=== PATIENT | male | born 1940 | race Caucasian/White ===

== ENCOUNTER 2020-02-23 15:42 | Emergency (ER) | payer MEDICARE, SELFPAY ==
--- NOTE | ~2020-02-23 | XR_ITS ---
XR ankle RT min 3V DATE: 02/23/2020 16:02 INDICATION: Injury. Right ankle swelling. TECHNIQUE: 4 views COMPARISON: None FINDINGS: There is a trimalleolar fracture. There is one cortical width lateral displacement of the l ateral malleolus, approximately 1.4 mm lateral displacement of the medial malleolar fracture. The ankle mortise appears intact. Plantar and posterior calcaneal enthesopathy. IMPRESSION: Trimalleolar ankle fracture Reviewed, dictated and finalized at location A. IMPRESSION: Trimalleolar ankle fracture
[2020-02-23 15:44] VITALS: BP 144/79; PULSE 76; RESP 17; TEMP 36.1; O2SAT 98
--- NOTE | 2020-02-23 15:59 | ED.ABDPAIN ---
HPI - Abdominal Pain General Chief Complaint: Extremity Injury, Lower Stated Complaint: Fall, Ankle Pain Time Seen by Provider: 02/23/20 15:44 Source: patient Mode of arrival: ambulatory Limitations: no limitations History of Present Illness HPI narrative: Patient is a 79-year-old male who presents to emergency department for evaluation patient misstepped tripping injuring the right ankle and has since had moderate aching pain to the right ankle joint worse with weightbearing and activity injury occurred just prior to arrival patient does not wish for pain medication. Patient denies other injuries or complaints Related Data Home Medications Medication Instructions Recorded Confirmed aspirin 81 mg tablet,delayed 81 mg PO DAILY 07/04/19 release cetirizine 10 mg tablet 10 mg PO DAILY PRN tablet 07/04/19 hydrochlorothiazide 25 mg tablet 25 mg PO DAILY 07/04/19 Allergies Allergy/AdvReac Type Severity Reaction Status Date / Time Aminoglycosides Allergy Mild Unknown Verified 02/23/20 15:47 bacitracin Allergy Mild Unknown Verified 02/23/20 15:47 neomycin Allergy Mild Unknown Verified 02/23/20 15:47 cetirizine Allergy Unknown affects Verified 02/23/20 15:47 mood Sulfa (Sulfonamide Allergy Unknown Unknown Verified 02/23/20 15:47 Antibiotics) sulfamethizole Allergy Unknown Nausea Verified 02/23/20 15:47 POLYMYXINBSULF Allergy Mild Unknown Uncoded 11/06/19 10:23 RANITIDINE HCL Allergy Unknown Unknown Uncoded 11/06/19 10:23 Review of Systems Review of Systems: All systems reviewed & are unremarkable except as noted in HPI and below PMFSH Surgical History Surgical History Hx of cholecystectomy Social History Social History Smoking status: Former smoker Alcohol intake: current Gender identity (if verbalized by the patient): Male Exam Narrative: Exam Narrative: GENERAL: Well-appearing, well-nourished, and in no acute distress. HEAD: Normocephalic, atraumatic. EYES: PERRLA and EOMI. ENT: Nares clear, no rhinorrhea or epistaxis. Mucous membranes moist. EXTREMITIES: Tenderness of the right ankle joint no bruising. 1+ edema of the lower extremities SKIN: Warm, dry, no rash. NEURO: No focal deficits. Alert and oriented x3. Neurovascularly intact. Capillary refill less than 2 seconds PSYCH: Normal mood and affect. Procedures Orthopedic Splinting/Casting Injury #1: Splinting/Casting Date: 02/23/20 Splinting/Casting Time: 16:13 Side: right Lower Extremity Injury Location: ankle Lower Extremity Immobilizer: posterior splint and stirrup splint OCL: stirrup Pre-Procedure Neuro Vascular Exam: normal Post-Procedure Neuro Vascular Exam: normal Other Orthopedic Equipment: walker Course Course Emergency Course: Patient in the room splinted in the emergency department will be discharged with orthopedic follow-up Vital Signs Vital signs: Vital Signs Temperature 97 F L 02/23/20 15:44 Pulse Rate 76 02/23/20 15:44 Respiratory Rate 17 02/23/20 15:44 Blood Pressure 144/79 H 02/23/20 15:44 Pulse Oximetry 98 02/23/20 15:44 Temperature 97 F L 02/23/20 15:44 Pulse Rate 76 02/23/20 15:44 Respiratory Rate 17 02/23/20 15:44 Blood Pressure 144/79 H 02/23/20 15:44 Pulse Oximetry 98 02/23/20 15:44 MDM - Abdominal Pain MDM Narrative Medical decision making narrative: Patients injury or pain is consistent with musculoskeletal etiology. No signs of neurological or vascular compromise on exam. Compartments and tisues are soft without signs of compartment syndrome. Patient splinted in the emergency department will be given follow-up with orthopedic surgery Imaging Data Radiologist's impression: ITS Impressions Ankle X-Ray 02/23/20 16:04 IMPRESSION: Trimalleolar ankle fracture Discharge Plan Discharge Cli
== END 2020-02-23 17:21 | disposition home or self-care (01) ==
LOC: ANHED 16:46
PROVIDERS: Emergency Provider Family Medicine; PCP Family Medicine
DX: S82.852G Displaced trimalleolar fracture of left lower leg, subsequent encounter for closed fracture with delayed healing (principal); Z79.82 Long term (current) use of aspirin; Z87.891 Personal history of nicotine dependence; W18.40XA Slipping, tripping and stumbling without falling, unspecified, initial encounter
CPT/HCPCS: 29515; 73610; 99284

== ENCOUNTER 2020-03-01 01:08 | Outpatient (CLI) | payer MEDICARE, SELFPAY ==
[2020-03-01 18:02] LABS: SARS-CoV-2 RNA PCR Negative
== END 2020-03-01 01:09 | disposition home or self-care (01) ==
LOC: ANHCOVIDDT 01:09
PROVIDERS: PCP Family Medicine; Visit Provider Orthopaedic Surgery
DX: Z01.812 Encounter for preprocedural laboratory examination (principal); Z20.828 Contact with and (suspected) exposure to other viral communicable diseases
CPT/HCPCS: 87635; C9803; U0003

== ENCOUNTER 2020-03-03 07:25 | Outpatient (CLI) | payer MEDICARE, SELFPAY ==
--- NOTE | 2020-03-03 14:15 | ECG_ITS ---
Measurements Intervals [place] Rate: 76 P: 31 IN: 150 QRS: -25 QRSD: 97 T: 54 QT: 389 QTc: 440 Interpretive Statements SINUS RHYTHM SUPRAVENTRICULAR TRIGEMINY EARLY PRECORDIAL R/S TRANSITION BASELINE ARTIFACT- I, II, AVR ABNORMAL ECG Electronically Signed On 03-03-2020 14:41:56 CDT by Juan Antonio Escalante D.O.
[2020-03-03 15:12] LABS: Anion Gap 10 mmol/L (8-16); Blood Urea Nitrogen 19 mg/dL (9-20); Calcium 8.8 mg/dL (8.4-10.2); Carbon Dioxide 29 mmol/L (22-30); Chloride 91 mmol/L (98-107); Estimated Glomerular Filt Rate > 60; Glucose 142 mg/dL (75-110); Potassium 3.9 mmol/L (3.4-5.0); Sodium 130 mmol/L (137-145)
== END 2020-03-03 07:26 ==
LOC: ANHSURGERY 03-13 07:26
PROVIDERS: Anesthesiology; PCP Family Medicine; Visit Provider Orthopaedic Surgery
DX: Z01.818 Encounter for other preprocedural examination (principal); I10 Essential (primary) hypertension; E11.9 Type 2 diabetes mellitus without complications; R94.31 Abnormal electrocardiogram [ECG] [EKG]
CPT/HCPCS: 36415; 80048; 93005

== ENCOUNTER 2020-03-04 02:02 | Day surgery (SDC) | payer MEDICARE, SELFPAY ==
[2020-02-29 14:58] VITALS: BMI 23.8
[2020-03-04] VITALS (8 sets, daily range): BP systolic 127–153; BP diastolic 42–72; PULSE 43–85; RESP 13–20; TEMP 36.4–37.1; O2SAT 99–100
--- NOTE | ~2020-03-04 | XR_ITS ---
EXAMINATION: XR surgery orthopedic DATE: 03/04/2020 16:33 INDICATION: Trimalleolar right ankle fracture. TECHNIQUE: 4 intraoperative spot fluoroscopic views of right ankle were obtained. I was not present. Fluoroscopy exposure time was 473 seconds. COMPARISON: Right ankle radiographs 02/29/2020 FINDINGS: There is an oblique fracture of distal fibula with internal fixation with retrograde intram edullary maykel and screws. The distal fracture fragment demonstrates 5 mm lateral displacement. There i s a transverse fracture of medial malleolus with internal fixation with 3 lag screws. The distal frac ture fragment demonstrates near-anatomic alignment. There is a coronal fracture of posterior malleolu s with 2 mm step-off at the articular surface. IMPRESSION: 1. Trimalleolar ankle fracture status post open reduction internal fixation. Reviewed, dictated and finalized at location A.
[2020-03-04] MEDS: LACTATED RINGERS 1,000 ML 30 ML IV CONT (11:58)
[2020-03-04] MEDS: ACETAMINOPHEN 500 MG TABLET 1000 MG PO (11:59)
[2020-03-04] MEDS: CELECOXIB 200 MG CAPSULE PO (11:59)
--- NOTE | 2020-03-04 12:30 | WPDHPUPDATE1 ---
History and Physical Update Update Date/Time: 03/04/20 12:30 History and Physical has been reviewed, including an updated exam of the patient. There are NO changes in the patient's condition. Risks, benefits, and alternatives have been discussed and questions answered. Patient agrees to proceed with procedure.
[2020-03-04 12:34] LABS: Glucose Point of Care 124 (65-105)
[2020-03-04 12:34] LABS: Sodium 131 mmol/L (137-145)
--- NOTE | 2020-03-04 13:21 | WPDANESEPPF ---
Anes - Initial Pre Proc Eval Procedure: Operation Date: 03/04/20 13:30 Proposed Procedures p Open Reduction Internal Fixation Right Ankle - Haresh Gerard MD Date/Time: 03/04/20 13:21 Surgeon: Haresh Gerard MD Pre Op Diagnosis: right ankle trimalleolar fx Patient Data Age: 79 Gender: M Height: 6 ft 2 in Weight: 84 kg Allergies Allergy/AdvReac Type Severity Reaction Status Date / Time neomycin Allergy Mild Rash Verified 03/04/20 13:13 Sulfa (Sulfonamide Allergy Unknown Unknown Verified 03/04/20 13:13 Antibiotics) Home Medications Medication Instructions Recorded Confirmed Type diclofenac sodium 75 mg 75 mg PO BID #180 tablet 06/25/19 03/04/20 Rx tablet,delayed release aspirin 81 mg tablet,delayed 81 mg PO DAILY 07/04/19 03/04/20 History release cetirizine 10 mg tablet 10 mg PO DAILY tablet 07/04/19 03/03/20 History hydrochlorothiazide 25 mg tablet 25 mg PO QAM 07/04/19 03/03/20 History metformin 500 mg tablet 500 mg PO BID #180 tablet 07/09/19 03/03/20 Rx amlodipine-benazepril 1 cap PO QAM 02/29/20 03/03/20 History atorvastatin 10 mg PO HS 02/29/20 03/03/20 History multivitamin [Multiple Vitamins] 1 tablet PO DAILY 02/29/20 03/03/20 History niacin [Slo-Niacin] 500 mg PO HS 02/29/20 03/03/20 History omeprazole 20 mg PO QAM 02/29/20 03/03/20 History Laboratory Tests 03/04/20 03/04/20 11:57 12:18 Sodium 131 mmol/L L mmol/L (137-145) POC Capillary Glucose 124 mg/dl H mg/dl (65-105) Patient hx anesthesia problems: none Family hx anesthesia problems: none PMFSH Past Medical History Medical History (Updated 03/04/20 @ 13:21 by Vicente Ba MD) Essential (primary) hypertension Mixed hyperlipidemia Seasonal allergies Trimalleolar fracture Type 2 diabetes mellitus without complications Urinary frequency Vision abnormalities Surgical History Surgical History Hx of cholecystectomy Family History Family History Father Diabetes mellitus Hypertension Acute myocardial infarction Cerebrovascular accident Mother Family history of malignant neoplasm Social History Social History Smoking packs per day: 0.5 Smoking cigarettes per day: 10.0 Years smoked: 14 Smoking pack-years: 7.00 Smoking status: Former smoker Smoking end date: 06/20/74 Alcohol intake: current Alcohol use details: FEW DRINKS/YEAR Substance use: never Living arrangements: with family Gender identity (if verbalized by the patient): Male Spiritual care concerns: No Anes - Eval Final PreProcedure Day of Procedure 03/04/20 13:21 Patient weight: normal Heart: regular rate and rhythm Lungs: clear to auscultation Airway: Mallampati scale class II Neurological: alert and oriented Last oral intake: >/= 8 hours ASA classification: III Emergent: no Anesthetic plan: proceed Anesthesia type and monitoring: general LMA and standard monitoring Informed Consent: The patient's anesthetic plan and its attendant risks and benefits were discussed with the patient/family/POA. Questions were solicited and answers provided to the satisfaction of the patient/family/POA.
[2020-03-04] MEDS: ceFAZolin 2 GM/D5W 50 ML 2 GM/50 ML BAG IVPB (14:33)
--- NOTE | 2020-03-04 16:56 | PM.PROC ---
Procedure Note - Detailed Date of procedure: 03/04/20 Pre-op diagnosis: right ankle trimalleolar fx Post-op diagnosis: same Procedure performed: ORIF RIGHT ANKLE Description of procedure: THE PATIENT WAS TAKING TO THE OR. THE RIGHT LEG WAS PREPPED AND DRAPED FROM THE TOES TO THE KNEE. THE SKIN HAD SIGNIFICANT ECCHYMOSIS SO IT WAS DECIDED THAT A FIBULAR TAYLOR WOULD BE USED. AN INCISION WAS MADE AT THE DISTAL FIBULA REGION AND THE SOFT TISSUES WERE DISSECTED DOWN TO BONE. THE TIP OF THE FIBULA WAS VISUALIZED AND A GUIDE WIRE WAS PASSED FROM THE TIP TO THE SHAFT OF THE FIBULA BRIDGING THE FRACTURE FRAGMENTS AND VISUALIZED WITH FLUOROSCOPY. A REAMER WAS PASSED OVER THE GUIDE WIRE INTO THE SHAFT. A 3.2 FIBULAR TAYLOR WAS INSERTED BRIDGING THE FRACTURE FRAGMENTS. THE THE TAYLOR WAS LOCKED PROXIMAL WITH THE HELICAL BLADES THEN DISTALLY WITH 4 SCREWS THAT HAD ALL GOOD BITES. NEXT THE INCISION WAS MADE AT THE MEDIAL ANKLE OVER THE MEDIAL MALLEOLUS DOWN TO BONE. THE SAPHENOUS VEIN WAS PRESERVED. THE FRACTURE WAS IDENTIFIED. THERE WAS SIGNIFICANT COMMINUTION. THE FRACTURE WAS REDUCED AND SECURED IN ANATOMIC POSITION WITH 3 PARTIALLY THREADED CANCELLOUS SCREWS. THE SCREWS HAD GOOD PURCHASE.THE WOUNDS WERE WASHED AND XRAYS WERE TAKEN AND THE HARDWARE AND FRACTURE FRAGMENTS WERE IN GOOD POSITION. THE POSTERIOR MALLEOLUS APPEARED TO BE REDUCED. THE WOUNDS WERE WASHED AGAIN AND THE WOUNDS WERE CLOSED WITH 2-O VICRYL FOR THE SUBCUTANEOUS TISSUES, 3-0 PROLINE WAS USED TO APPROXIMATE THE LATERAL WOUND AND SAVI WERE USED TO APPROXIMATE THE MEDIAL WOUND. STERILE DRESSING WAS APPLIED AND KIRBY RIOS SPLINT WAS PLACED. THE PATIENT WAS EXTUBATED AND SENT TO THE RECOVERY ROOM. Anesthesia: GETA Surgeon: Haresh Gerard MD Estimated blood loss (mL): 5 Drains: No Complications: No immediate complications Condition: stable Disposition: PACU
[2020-03-04 17:01] LABS: Glucose Point of Care 144 (65-105)
--- NOTE | 2020-03-04 17:08 | SUR.PHASEI ---
Dr. Bartlett at bedside for block
--- NOTE | 2020-03-04 17:19 | WPDANESPNB ---
Anes - Peripheral Nerve Block Date/Time: 03/04/20 17:19 I have discussed with the patient/family/POA the placement of a peripheral nerve block for post-operative pain management, including associated risks, benefits, complications, and side effects. Alternative methods of post-operative analgesia were detailed. Questions were solicited and answers provided to the satisfaction of the patient/family/POA. Time-Out: A pre-procedural Time-Out was completed immediately before starting the procedure and confirmed: Patient Identification, Site, Procedure, Patient Position and the Availability of Requisite Equipment. Clinical Indications: Acute post-operative pain management requested by the operative surgeon. Nerve Block Insertion Note Anes-nerve block: posterior fossa sciatic (20cc) right Patient position: supine Skin prep: chlorhexidine Needle: 22 gauge, stimulating, insulated echogenic needle. Needle length: 80 mm Technique: ultrasound (in plane) Injectate: bupivacaine 0.5% with epi 5 mcg/ml (20cc) Observations: tolerated well Complications: none Procedure start time:: 1705 Procedure end time:: 171
== END 2020-03-04 18:30 | disposition home or self-care (01) ==
PROVIDERS: Anesthesiology; PCP Family Medicine; Visit Provider Orthopaedic Surgery
PROC: (CPT 27822; principal; 2020-03-04 13:30)
DX: S82.851A Displaced trimalleolar fracture of right lower leg, initial encounter for closed fracture (principal); X58.XXXA Exposure to other specified factors, initial encounter; R35.0 Frequency of micturition; I10 Essential (primary) hypertension; E11.9 Type 2 diabetes mellitus without complications; E78.5 Hyperlipidemia, unspecified
CPT/HCPCS: 27822; 36415; 84295; A9270; C1713; C1769; J0690; J1100; J2405; J2704; J3010; J7120

== ENCOUNTER 2020-04-01 10:49 | Outpatient (CLI) | payer MEDICARE, SELFPAY ==
[2020-04-01 19:01] LABS: SARS-CoV-2 RNA PCR Negative
== END 2020-04-01 10:50 | disposition home or self-care (01) ==
LOC: ANHCOVIDDT 04-29 10:49
PROVIDERS: PCP Family Medicine; Visit Provider Orthopaedic Surgery
DX: Z01.818 Encounter for other preprocedural examination (principal); Z20.828 Contact with and (suspected) exposure to other viral communicable diseases
CPT/HCPCS: 87635; C9803; U0003

== ENCOUNTER 2020-04-03 00:28 | Day surgery (SDC) | payer MEDICARE, SELFPAY ==
[2020-03-28 12:25] VITALS: BMI 24.4
[2020-04-03] VITALS (8 sets, daily range): BP systolic 122–151; BP diastolic 55–78; PULSE 66–72; RESP 12–14; TEMP 36.3–36.6; O2SAT 100
--- NOTE | ~2020-04-03 | XR_ITS ---
EXAMINATION: XR surgery orthopedic DATE: 04/03/2020 12:07 INDICATION: ORIF right ankle fracture TECHNIQUE: 3 fluoroscopic spot images of the right ankle were obtained during procedure performed by Dr. Cuellar. Radiologist was not present for the imaging or procedure. The amount of fluoroscopy time used during this procedure was 1.4 minutes. COMPARISON: Right ankle radiographs dated 03/26/2020 FINDINGS: Interval removal of the prior fixation instrumentation at the distal right tibia and fibula and place ment of new fixation instrumentation. This includes fixation of the posterior malar fracture with an anterior to posteriorly directed cannulated lag screw extending across the tibial plafond, medial to lateral plate and screw fixation of the medial malleolus fracture and lateral plate and screw fixatio n of the lateral malleolar fracture which includes 3 screws spanning the distal tibiofibular syndesmo sis. Alignment of the fixations appears near-anatomic. Normal alignment and joint space at the right ankle and subtalar joints. Expected small amount of postoperative gas in the soft tissues and tibiota lar joint space. IMPRESSION: 1. Near-anatomic alignment post revision of internal fixation of a trimalleolar fracture of the right ankle as detailed above. See procedure note for further detail. Reviewed, dictated and finalized at location B.
--- NOTE | 2020-04-03 07:17 | WPDHPUPDATE1 ---
History and Physical Update Update Date/Time: 04/03/20 07:17 History and Physical has been reviewed, including an updated exam of the patient. There are NO changes in the patient's condition. Covid test negative. Risks, benefits, and alternatives have been discussed and questions answered. Patient agrees to proceed with procedure.
[2020-04-03] MEDS: LACTATED RINGERS 1,000 ML 30 ML IV CONT ×2 (08:05→12:31)
[2020-04-03] MEDS: ACETAMINOPHEN 500 MG TABLET 1000 MG PO (08:10)
[2020-04-03] MEDS: KETOROLAC 15 MG/ML VIAL (*BKC) IV PUSH (08:14)
[2020-04-03 08:20] LABS: Glucose Point of Care 121 (65-105)
[2020-04-03 08:24] LABS: Sodium 132 mmol/L (137-145)
--- NOTE | 2020-04-03 08:35 | WPDANESEPPF ---
Anes - Initial Pre Proc Eval Procedure: Operation Date: 04/03/20 09:00 Proposed Procedures p Open Reduction Internal Fixation Right Ankle, - Johan Cuellar MD s Removal Hardware Right Ankle - Johan Cuellar MD Date/Time: 04/03/20 08:35 Surgeon: Johan Cuellar MD Pre Op Diagnosis: right ankle bimalleolar fx, painful hardware Patient Data Age: 79 Gender: M Height: 6 ft 1 in Weight: 80 kg Last Vital Signs Temp 36.4 C L 04/03/20 08:26 Pulse 72 04/03/20 08:26 BP 151/78 H 04/03/20 08:26 Pulse Ox 100 04/03/20 08:26 Allergies Allergy/AdvReac Type Severity Reaction Status Date / Time neomycin Allergy Mild Rash Verified 03/28/20 12:14 Sulfa (Sulfonamide AdvReac Intermediate Nausea Verified 03/28/20 12:14 Antibiotics) Home Medications Medication Instructions Recorded Confirmed Type diclofenac sodium 75 mg 75 mg PO BID #180 tablet 06/25/19 03/28/20 Rx tablet,delayed release aspirin 81 mg tablet,delayed 81 mg PO DAILY 07/04/19 04/03/20 History release cetirizine 10 mg tablet 10 mg PO DAILY tablet 07/04/19 04/03/20 History metformin 500 mg tablet 500 mg PO BID #180 tablet 07/09/19 04/03/20 Rx amlodipine-benazepril 1 cap PO QAM 02/29/20 04/03/20 History atorvastatin 10 mg PO HS 02/29/20 04/03/20 History multivitamin [Multiple Vitamins] 1 tablet PO DAILY 02/29/20 04/03/20 History niacin [Slo-Niacin] 500 mg PO HS 02/29/20 04/03/20 History omeprazole 20 mg PO QAM 02/29/20 04/03/20 History hydrochlorothiazide 25 mg tablet 25 mg PO QAM #90 tablet 03/20/20 04/03/20 Rx Laboratory Tests 04/03/20 04/03/20 07:51 08:08 Sodium 132 mmol/L L mmol/L (137-145) POC Capillary Glucose 121 mg/dl H mg/dl (65-105) Patient hx anesthesia problems: none Family hx anesthesia problems: none PMFSH Past Medical History Medical History Arterial vascular disease Diabetes mellitus with autonomic neuropathy Essential (primary) hypertension Mixed hyperlipidemia Peripheral autonomic neuropathy due to diabetes mellitus Retained orthopedic hardware Seasonal allergies Trimalleolar fracture Type 2 diabetes mellitus without complications Urinary frequency Vision abnormalities Surgical History Surgical History Hx of cholecystectomy Family History Family History Father Diabetes mellitus Hypertension Acute myocardial infarction Cerebrovascular accident Mother Family history of malignant neoplasm Social History Social History Smoking packs per day: 0.5 Smoking cigarettes per day: 10.0 Years smoked: 15 Smoking pack-years: 7.50 Smoking status: Former smoker Smoking end date: 12/18/74 Alcohol intake: current Alcohol use details: FEW DRINKS/YEAR Substance use: never Living arrangements: with family Gender identity (if verbalized by the patient): Male Spiritual care concerns: No Anes - Eval Final PreProcedure Day of Procedure 04/03/20 08:35 Patient weight: normal Heart: regular rate and rhythm Lungs: clear to auscultation Airway: Mallampati scale class II Neurological: other (alert) Last oral intake: >/= 8 hours ASA classification: III Emergent: no Anesthetic plan: proceed Anesthesia type and monitoring: general LMA and standard monitoring Informed Consent: The patient's anesthetic plan and its attendant risks and benefits were discussed with the patient/family/POA. Questions were solicited and answers provided to the satisfaction of the patient/family/POA.
[2020-04-03] MEDS: ceFAZolin 2 GM/D5W 50 ML 2 GM/50 ML BAG IVPB (09:12)
--- NOTE | 2020-04-03 12:22 | SUR.OPER ---
ebl=50ml
--- NOTE | 2020-04-03 12:54 | PM.PROC ---
Procedure Note - Detailed Date of procedure: 04/03/20 Pre-op diagnosis: right ankle bimalleolar fx, painful hardware Right Ankle trimalleolar fracture, painful hardware Post-op diagnosis: same Procedure performed: Removal of deep hardware right ankle. Open reduction internal fixation ankle trimalleolar fracture with fixation of the posterior lip Description of procedure: Operative indications: Patient is a 79 year-old man who sustained an injury to the Right ankle. Radiographs show distal fibular fracture with displacement. Medial malleolus fracture with displacement and posterior malleolus fracture. previous reduction and fixation performed with loss of reduction of the medial malleolus impaction of the ankle joint and posterolateral subluxation of the mortise. Widening of the ankle mortise noted. Patient presents for operative treatment. Full discussion of the risks, benefits and alternatives of surgery was had with the patient. Questions answered. Patient verbalizes understanding and wishes to proceed. What was done: After informed consent, the operative extremity was marked in the preoperative holding area. Patient received intravenous antibiotics. Patient was then taken to the operating room and underwent general anesthesia by the anesthesia team. Positioned supine on the operating room table with a soft bump under the ipsilateral hip. A time-out was performed confirming the patient, site of the surgery, operative plan. Lower extremity then prepped and draped in the usual sterile surgical fashion using ChloraPrep skin solution. Foot and ankle exsanguinated and a thigh tourniquet inflated to 250 mmHg. Longitudinal incision made over the lateral ankle distal fibula with a 15 blade knife. Hemostasis controlled with electrocautery. Full-thickness soft tissue flaps developed and the fascia was incised in line with the skin incision. The distal locking screws on the lateral aspect of the fibular nail were identified and removed. The intramedullary nail was then identified and the locking talus were reversed. The nail was then removed. Subperiosteal exposure was then done proximally along the fibular shaft as well as distally to the distal fibular tip. Fracture identified and cleared with a dental pick, irrigation and rongeur. The distal fibula was then rotated posteriorly to allow access to the posterolateral aspect of the tibia. The articular surface was elevated from the posterolateral tibia and reinforced with cancellous bone chip bone graft as well as demineralized bone matrix putty. The posterior malleolus fracture was elevated from the posterior tibia was then translated distally for reduction and provisionally pinned. Image intensification confirm reduction and 4.0 mm cannulated screw was used for fixation placed anterior to posterior with fluoroscopic guidance. Good alignment and placement of the hardware confirmed. Rastafarian of the ankle mortise confirmed. The distal fibula Fracture was then reduced and held with bone-holding clamp. Image intensification confirmed reduction of the fracture and the ankle mortise. Fixation achieved with a Neutralization lateral plate with unicortical screws distal to fracture and bicortical screws proximal to the fracture. Good alignment and stability of the fracture noted. syndesmosis fixation through the plate was performed to add stability to the construct. Image intensification used to confirm reduction of the fracture and placement of the hardware. Medial side then addressed. Longitudinal incision made with a 15 blade knife over the medial malleolus fracture. Hemostasis controlled with electrocautery. Fascia incised in line with skin incision. Periosteum cleared from the medial malleolus fracture. Medial side of the joint inspected and noted to have mild amount of trauma to the chondral surface. Thorough irrigation of the ankle joint and suctioned out. The fracture had lost fixation and prominence of the
[2020-04-03 13:15] LABS: Glucose Point of Care 148 (65-105)
[2020-04-03] MEDS: ONDANSETRON INJ 4 MG/2 ML VIAL IV PUSH (13:30)
== END 2020-04-03 14:21 | disposition home or self-care (01) ==
PROVIDERS: Anesthesiology; PCP Family Medicine; Visit Provider Orthopaedic Surgery
PROC: (CPT 27823; principal; 2020-04-03 09:00)
PROC: (CPT 27823; 2020-04-03 09:00)
DX: S82.851P Displaced trimalleolar fracture of right lower leg, subsequent encounter for closed fracture with malunion (principal); E11.43 Type 2 diabetes mellitus with diabetic autonomic (poly)neuropathy; I10 Essential (primary) hypertension; I70.90 Unspecified atherosclerosis; E78.2 Mixed hyperlipidemia; Z79.84 Long term (current) use of oral hypoglycemic drugs; Z87.891 Personal history of nicotine dependence; X58.XXXD Exposure to other specified factors, subsequent encounter
CPT/HCPCS: 27823; 36415; 84295; A9270; C1713; C1769; J0690; J1040; J1885; J2405; J2704; J3010; J7120

== ENCOUNTER 2020-06-08 09:38 | Emergency (ER) | payer MEDICARE, SELFPAY ==
--- NOTE | ~2020-06-08 | US_ITS ---
EXAMINATION: US venous doppler LE RT DATE: 06/08/2020 10:41 INDICATION: Right lower limb pain. TECHNIQUE: Grayscale ultrasound images without and with compression and Doppler ultrasound images of the right lower extremity veins were obtained. COMPARISON: Ultrasound 09/20/2018 FINDINGS: The visualized portions of right common femoral vein, profunda (deep) femoral vein, femoral vein, pop liteal vein, peroneal veins, posterior tibial veins, and greater saphenous vein outflow are patent. IMPRESSION: 1. No deep venous thrombosis. Reviewed, dictated and finalized at location A. [employer]
[2020-06-08 09:43] VITALS: BP 159/50; PULSE 76; RESP 18; TEMP 36.1; O2SAT 100
--- NOTE | 2020-06-08 10:34 | PC.NURSE ---
Pt to U/S via stretcher.
--- NOTE | 2020-06-08 10:36 | PC.NURSE ---
unable to obtain lab specimen at this time, patient is in ultrasound.
[2020-06-08 11:02] LABS: Basophils Percent Auto 0.4 % (0.2-1.2); Eosinophils Absolute Auto 0.1 K/mm3 (0-0.3); Eosinophils Percent Auto 0.6 % (0-4.4); Hematocrit 37.6 % (42.0-52.0); Hemoglobin 12.5 g/dL (14.0-18.0); Immature Granulocyte Absolute 0.01 K/mm3 (0.00-0.031); Immature Granulocyte Percent A 0.1 % (0-0.5); Lymphocytes Absolute Auto 0.72 K/mm3 (0.9-3.2); Mean Corpuscular HGB Conc 33.2 g/dl (32-36); Mean Corpuscular Hemoglobin 28.7 pg (26-34); Mean Corpuscular Volume 86.2 fl (80-100); Mean Platelet Volume 9.4 fl (7.4-10.4); Monocytes Absolute Auto 0.4 K/mm3 (0.1-0.6); Neutrophils Absolute Auto 6.8 K/mm3 (1.3-6.7); Neutrophils Percent Auto 84.9 % (45.5-73.1); Platelet Count Result 278 k/mm3 (150-375); Red Blood Count 4.36 M/mm3 (4.6-6.20); Red Cell Distribution Width 13.2 % (11.5-14.5)
[2020-06-08 11:14] LABS: Anion Gap 7 mmol/L (8-16); Blood Urea Nitrogen 10 mg/dL (9-20); Calcium 8.6 mg/dL (8.4-10.2); Carbon Dioxide 32 mmol/L (22-30); Chloride 93 mmol/L (98-107); Estimated CRCL calculation 72 ml/min; Estimated Glomerular Filt Rate > 60; Glucose 137 mg/dL (75-110); Potassium 3.9 mmol/L (3.4-5.0); Sodium 132 mmol/L (137-145)
--- NOTE | 2020-06-08 11:14 | ED.EXTPRO ---
HPI - Extremity Problem General Chief complaint: Extremity Problem,Nontraumatic <PATRICIA Calderon Last Filed: 06/08/20 11:25> Stated complaint: post op swelling leg/foot <PATRICIA Calderon Last Filed: 06/08/20 11:25> Time Seen by Provider: 06/08/20 09:58 <PATRICIA Calderon Last Filed: 06/08/20 11:25> Source: patient <PATRICIA Calderon Last Filed: 06/08/20 11:25> Mode of arrival: ambulatory <PATRICIA Calderon Last Filed: 06/08/20 11:25> Limitations: no limitations <PATRICIA Calderon Last Filed: 06/08/20 11:25> History of Present Illness HPI Narrative: Patient is a 80-year-old male who presents to emergency department for evaluation of right ankle pain and concern for DVT had recent ankle surgery and is recovering was just taken out of his cast transition to a walking boot patient notes this morning he had a vein protruding from the valadez region which has resolved but continues to have some mild discomfort around the ankle with some mild edema patient denies chest pain shortness of breath lightheadedness dizziness and otherwise presents in no distress does not appear uncomfortable denies history of DVT <PATRICIA Calderon Last Filed: 06/08/20 11:25> Related Data Home medications: Home Medications Medication Instructions Recorded Confirmed aspirin 81 mg tablet,delayed 81 mg PO DAILY 07/04/19 06/04/20 release cetirizine 10 mg tablet 10 mg PO DAILY tablet 07/04/19 06/04/20 amlodipine-benazepril 1 cap PO QAM 02/29/20 06/04/20 atorvastatin 10 mg PO HS 02/29/20 06/04/20 multivitamin [Multiple Vitamins] 1 tablet PO DAILY 02/29/20 06/04/20 niacin [Slo-Niacin] 500 mg PO HS 02/29/20 06/04/20 omeprazole 20 mg PO QAM 02/29/20 06/04/20 <PATRICIA Calderon Last Filed: 06/08/20 11:25> Allergies/Adverse reactions: Allergies Allergy/AdvReac Type Severity Reaction Status Date / Time neomycin Allergy Mild Rash Verified 06/08/20 09:50 Sulfa (Sulfonamide AdvReac Intermediate Nausea Verified 06/08/20 09:50 Antibiotics) <Harry Navarrete PA-C - Last Filed: 06/08/20 11:25> Review of Systems Review of Systems: All systems reviewed & are unremarkable except as noted in HPI and below <Harry Navarrete PA-C - Last Filed: 06/08/20 11:25> PMFSH Past Medical History Medical History: Medical History Aftercare following surgery of the musculoskeletal system Arterial vascular disease Diabetes mellitus with autonomic neuropathy Essential (primary) hypertension Mixed hyperlipidemia Peripheral autonomic neuropathy due to diabetes mellitus Retained orthopedic hardware Seasonal allergies Trimalleolar fracture Type 2 diabetes mellitus without complications Urinary frequency Vision abnormalities <Harry Navarrete PA-C - Last Filed: 06/08/20 11:25> Surgical History Surgical History: Surgical History Hx of cholecystectomy <Harry Navarrete PA-C - Last Filed: 06/08/20 11:25> Family History Family History: Family History Father Diabetes mellitus Hypertension Acute myocardial infarction Cerebrovascular accident Mother Family history of malignant neoplasm <Harry Navarrete PA-C - Last Filed: 06/08/20 11:25> Social History Social History: Social History Smoking packs per day: 0.5 Smoking cigarettes per day: 10.0 Years smoked: 15 Smoking pack-years: 7.50 Smoking end date: 12/18/74 Alcohol intake: current Substance use: never Gender identity (if verbalized by the patient): Male Spiritual care concerns: No <Harry Navarrete PA-C - Last Filed: 06/08/20 11:25> Exam Narrative: Exam Narrative: GENERAL: Well-appearing, well-nourished, and in no acute distress.
[2020-06-08 11:40] VITALS: BP 143/76; PULSE 66; RESP 18; O2SAT 98
== END 2020-06-08 11:41 | disposition home or self-care (01) ==
PROVIDERS: Emergency Medicine Emergency Medical Services; Emergency Provider General Practice; PCP Family Medicine
DX: M79.604 Pain in right leg (principal); E11.43 Type 2 diabetes mellitus with diabetic autonomic (poly)neuropathy; I10 Essential (primary) hypertension; E78.2 Mixed hyperlipidemia; I99.9 Unspecified disorder of circulatory system; Z79.84 Long term (current) use of oral hypoglycemic drugs; Z79.82 Long term (current) use of aspirin; F17.210 Nicotine dependence, cigarettes, uncomplicated; Z98.890 Other specified postprocedural states
CPT/HCPCS: 36415; 80048; 85025; 93971; 99284

== ENCOUNTER 2020-08-07 12:40 | Outpatient (CLI) | payer MEDICARE, SELFPAY ==
--- NOTE | 2020-08-07 12:52 | ECHO_ITS ---
Patient Info Name: Meliton Delacruz Age: 80 years : 1940 Gender: Male Ht: 73 in Wt: 185 lbs BSA: 2.08 m2 HR: 79 bpm BP: 164 / 87 mmHg Technical Quality: Fair Exam Date: 08/07/2020 1:01 PM Exam Location: [facility] Patient Status: Outpatient Admit Date: 08/07/2020 Staff Ordering Physician: Jaren Zamarripa PA-C Process Validation Engineer: Radha Espino RDCS Attending Provider: Jaren Zamarripa PA-C Referring Physician: Marilou JUSTICE; Exam Type: CA echo doppler color flow Study Info Indications I10 - Essential (primary) hypertension Complete two-dimensional, color flow and Doppler transthoracic echocardiogram is performed. Summary 1. Complete two-dimensional, color flow and Doppler transthoracic echocardiogram is performed. 2. Left ventricular chamber dimension is normal. 3. Left ventricular systolic function is normal, estimated at 60-65%. 4. There is mildly increased left ventricular wall thickness. 5. The left ventricular diastolic function is grade I diastolic dysfunction. 6. E/e' 17 is elevated. 7. Left atrial chamber dimension is moderately enlarged. 8. Right atrial chamber dimension is mildly enlarged. 9. The aortic valve is possibly bicuspid. 10. There is mild aortic valve stenosis with a peak velocity of 279 cm/s, mean gradient of 11 mmHg, and aortic valve area of 1.8 cm2. 11. There is mild aortic valve sclerosis. 12. There is trace aortic valve regurgitation. 13. The mitral valve has mildly calcified annulus. 14. No pulmonary hypertension, estimated pulmonary arterial systolic pressure is 31 mmHg. 15. There is trace pulmonic regurgitation. Left Ventricle E/e' 17 is elevated. Left ventricular chamber dimension is normal. Left ventricular systolic function is normal, estimated at 60-65%. There is mildly increased left ventricular wall thickness. The left ventricular diastolic function is grade I diastolic dysfunction. Right Ventricle Right ventricular chamber dimension is normal. Right ventricular systolic function is normal. Left Atria Left atrial chamber dimension is moderately enlarged. Right Atria Right atrial chamber dimension is mildly enlarged. Aortic Valve The aortic valve is possibly bicuspid. There is mild aortic valve stenosis with a peak velocity of 279 cm/s, mean gradient of 11 mmHg, and aortic valve area of 1.8 cm2. There is mild aortic valve sclerosis. There is trace aortic valve regurgitation. Pulmonic Valve There is trace pulmonic regurgitation. Mitral Valve The mitral valve has mildly calcified annulus. There is no mitral valve stenosis. There is no mitral valve regurgitation. Tricuspid Valve There is no tricuspid valve regurgitation. No pulmonary hypertension, estimated pulmonary arterial systolic pressure is 31 mmHg. Pericardium/Pleural There is no pericardial effusion. Inferior Vena Cava Normal inferior vena cava with >50% collapse upon inspiration consistent with normal right atrial pressure, 5 mmHg. Aorta The aortic root size at the sinus of Valsalva is normal. Left Ventricular Outflow Tract Name Value Normal LVOT 2D LVOT Diameter 2.0 cm LVOT Doppler
== END 2020-08-07 12:41 | disposition home or self-care (01) ==
LOC: ANHCARD 12:46
PROVIDERS: Family Provider Family Medicine; PCP Family Medicine; Visit Provider Physician Assistant
DX: I10 Essential (primary) hypertension (principal); I35.0 Nonrheumatic aortic (valve) stenosis
CPT/HCPCS: 93306

== ENCOUNTER 2021-05-02 18:11 | Emergency (ER) | payer MEDICARE, SELFPAY ==
[2021-05-02 18:18] VITALS: BP 163/75; PULSE 83; RESP 16; TEMP 37.3; O2SAT 100
--- NOTE | 2021-05-02 18:35 | ED.GENADULT ---
HPI - General Adult General Chief complaint: Upper Respiratory Infection Stated complaint: cough/congestion/runny nose Source: patient Mode of arrival: ambulatory Limitations: no limitations History of Present Illness HPI narrative: Pleasant 81 y/o male. PMHx HTN, HLD, DM II. Presents to [facility] today with acute complaints of increased nasal congestion, purulent nasal discharge, 'scratchy' throat, and intermittent non-productive cough for the past 72 hours. He reports to have been taking a daily antihistamine, as well as OTC remedies including Neti Pot at HS with subtherapeutic relief. Denies fever, chills, myalgias. No otalgia. No dysphagia, involuntary drooling. No chest pain, dyspnea, wheezing, edema. Related Data Home Medications Medication Instructions Recorded Confirmed aspirin 81 mg tablet,delayed 81 mg PO DAILY 07/04/19 04/14/21 release cetirizine 10 mg tablet 10 mg PO DAILY tablet 07/04/19 04/14/21 multivitamin [Multiple Vitamins] 1 tablet PO DAILY 02/29/20 04/14/21 niacin [Slo-Niacin] 500 mg PO HS 02/29/20 04/14/21 Allergies Allergy/AdvReac Type Severity Reaction Status Date / Time neomycin Allergy Mild Rash Verified 04/14/21 09:30 Sulfa (Sulfonamide AdvReac Intermediate Nausea Verified 04/14/21 09:30 Antibiotics) Review of Systems Review of Systems: CONSTITUTIONAL: Denies fever, chills, sweats. EYES: Denies visual changes, redness, discharge. ENT: Positive rhinorrhea, congestion. No sore throat, otalgia. CARDIOVASCULAR: Denies chest pain, palpitations, edema. RESPIRATORY: Denies dyspnea, wheezing. Positive cough. GASTROINTESTINAL: Denies abdominal pain, nausea, vomiting, diarrhea. GENITOURINARY: Denies dysuria, hematuria, abnormal discharge SKIN: Denies rash or itching. MUSCULOSKELETAL: Denies acute back pain, joint pain, or myalgia. NEUROLOGIC: Denies numbness, or focal weakness. PSYCHIATRIC: Denies anxiety or depression. All systems reviewed & are unremarkable except as noted in HPI and below PMFSH Past Medical History Medical History Aftercare following surgery of the musculoskeletal system Arterial vascular disease Arthritis Diabetes mellitus with autonomic neuropathy Essential (primary) hypertension Fracture of ankle with nonunion HLD (hyperlipidemia) HTN (hypertension) Mixed hyperlipidemia Peripheral autonomic neuropathy due to diabetes mellitus Retained orthopedic hardware Seasonal allergies Traumatic arthritis of right ankle Trimalleolar fracture Type 2 diabetes mellitus without complications Urinary frequency Vision abnormalities Wears glasses Surgical History Surgical History Hx of cholecystectomy Family History Family History Father Diabetes mellitus Hypertension Acute myocardial infarction Cerebrovascular accident Mother Family history of malignant neoplasm Other Breast cancer Social History Social History Smoking packs per day: 0.5 Smoking cigarettes per day: 10.0 Years smoked: 15 Smoking pack-years: 7.50 Smoking status: Former smoker Smoking end date: 12/18/74 Alcohol intake: current Alcohol use details: FEW DRINKS/YEAR Substance use: never Substance use type: does not use Gender identity (if verbalized by the patient): Male Spiritual care concerns: No Exam Narrative: GENERAL: This is a well-nourished, well-developed adult, in no apparent distress. HEAD: normocephalic, atraumatic. EYES: PERRL. Sclera clear/white. EARS: External ears normal, auditory canals clear and without drainage, TMs normal. NOSE: External nose normal. Positive Rhinorrhea, bilateral nare congestsion. No obstruction. THROAT: Mucous membranes moist, posterior pharynx is erythematous w/PND. No exudates. NECK
== END 2021-05-02 18:38 | disposition home or self-care (01) ==
PROVIDERS: Emergency Provider Nurse Practitioner Adult Health; PCP Family Medicine
DX: J01.10 Acute frontal sinusitis, unspecified (principal); J06.9 Acute upper respiratory infection, unspecified; Z87.891 Personal history of nicotine dependence; M19.90 Unspecified osteoarthritis, unspecified site; E11.43 Type 2 diabetes mellitus with diabetic autonomic (poly)neuropathy; I10 Essential (primary) hypertension; E78.5 Hyperlipidemia, unspecified; E78.2 Mixed hyperlipidemia; M19.171 Post-traumatic osteoarthritis, right ankle and foot
CPT/HCPCS: 99213; G0463

== ENCOUNTER → 2021-05-06 02:15 | Outpatient (CLI) | payer MEDICARE, SELFPAY ==
[2021-05-06 18:47] LABS: SARS-CoV-2 RNA PCR Negative
== END ==
PROVIDERS: PCP Family Medicine; Visit Provider Family Medicine
DX: R05.9 Cough, unspecified (principal); Z20.822 Contact with and (suspected) exposure to COVID-19
CPT/HCPCS: C9803; U0003; U0005

== ENCOUNTER 2021-08-05 02:32 | Observation (INO) | payer MEDICARE, SELFPAY ==
[2021-08-05] VITALS (13 sets, daily range): BP systolic 132–177; BP diastolic 72–113; PULSE 63–74; RESP 10–22; TEMP 36–36.7; O2SAT 97–100; BMI 24.9
--- NOTE | ~2021-08-05 | XR_ITS ---
EXAMINATION: XR chest 1V portable DATE: 08/05/2021 03:01 INDICATION: Chest tightness. TECHNIQUE: A single frontal view of the chest was obtained on 2 radiographs. COMPARISON: Chest CT 08/05/2021 FINDINGS: There is mild elevation of left hemidiaphragm. No pneumonia, pleural effusion, or pneumotho rax. The heart size is normal. IMPRESSION: 1. No acute cardiopulmonary disease. Reviewed, dictated and finalized at location A. TER ASSEMBLER
--- NOTE | ~2021-08-05 | CT_ITS ---
EXAMINATION: CTA chest PE protocol DATE: 08/05/2021 04:41 INDICATION: Chest tightness. Shortness of breath. TECHNIQUE: Computed tomography angiography (CTA) of the chest was performed with 100 mL Omnipaque-350 intravenous contrast timed to evaluate the pulmonary arteries. Coronal maximum intensity projection 3D-reconstructions were created by the technologist. Automated exposure control and iterative reconst ruction technique were employed. The dose-length product was 427.46 mGy-cm. COMPARISON: None. FINDINGS: The lungs demonstrate mild atelectasis. There is a 3 mm nodule in left lower lobe, likely b enign. There are 5 mm and 3 mm nodules at left major fissure, likely benign. No pleural effusion. The re is no pulmonary embolus. The heart size is normal. There are coronary artery calcifications. No pe ricardial effusion. There is ectasia of ascending aorta measuring 4.4 cm. There are changes of cholec ystectomy. 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 There is a small sliding hiatal hernia. There is lev oscoliosis of upper thoracic spine. There is mild thoracic spondylosis. IMPRESSION: 1. No pulmonary embolus. 2. Ectasia of ascending aorta measuring 4.4 cm. 3. Small sliding hiatal hernia. Reviewed, dictated and finalized at location A. WARE TRAINER
--- NOTE | 2021-08-05 02:41 | ECG_ITS ---
Measurements Intervals [place] Rate: 71 P: 5 MS: 126 QRS: -3 QRSD: 98 T: 74 QT: 404 QTc: 441 Interpretive Statements SINUS RHYTHM WITH SINUS ARRHYTHMIA ATRIAL AND VENTRICULAR PREMATURE COMPLEXES EARLY PRECORDIAL R/S TRANSITION BORDERLINE ST-T WAVE ABNORMALITY- ANTEROLAT/HIGH LAT LEADS BASELINE ARTIFACT- I, II, III, AVR, AVL, AVF BORDERLINE ECG Electronically Signed On 08-05-2021 7:13:42 MANAGER MBA by Juan Antonio Escalante D.O.
--- NOTE | 2021-08-05 02:49 | ED.CHESTPAIN ---
HPI - Chest Pain General Chief Complaint: Chest Pain Stated Complaint: chest tightness, left leg cramping Time Seen by Provider: 08/05/21 02:41 Source: RN notes reviewed History of Present Illness HPI narrative: Patient presents emergency department from home for chest tightness. Patient states that he awoke from sleep approximately 130 with a cramp in his left leg he states that cramp went from his ankle all the way up to his hip states that time he got up to walk off the cramping after walking around for a while he began to notice tightness in his chest she states he has had some tightness in his chest since that time he states the cramp in his leg is resolved he states fine prior to going to sleep tonight denies any fevers or chills shortness of breath abdominal pain nausea vomiting or any other symptoms Related Data Home Medications Medication Instructions Recorded Confirmed aspirin 81 mg tablet,delayed 81 mg PO DAILY 07/04/19 07/28/21 release cetirizine 10 mg tablet 10 mg PO DAILY tablet 07/04/19 07/28/21 multivitamin [Multiple Vitamins] 1 tablet PO DAILY 02/29/20 07/28/21 niacin [Slo-Niacin] 500 mg PO HS 02/29/20 07/28/21 Allergies Allergy/AdvReac Type Severity Reaction Status Date / Time neomycin Allergy Mild Rash Verified 07/28/21 09:11 Sulfa (Sulfonamide AdvReac Intermediate Nausea Verified 07/28/21 09:11 Antibiotics) Review of Systems Review of Systems: Gen.: Denies fevers or chills ENT: Denies congestion Respiratory: Denies shortness of breath or cough CV: See HPI GI: Denies abdominal pain nausea, emesis or diarrhea Musculoskeletal: Denies back pain or muscle pain Neuro: Denies numbness, tingling, weakness or focal weakness Skin: Denies rash Except as documented, all other systems reviewed and negative [facility] Past Medical History Medical History Aftercare following surgery of the musculoskeletal system Arterial vascular disease Arthritis Diabetes mellitus with autonomic neuropathy Essential (primary) hypertension Fracture of ankle with nonunion HTN (hypertension) Mixed hyperlipidemia Peripheral autonomic neuropathy due to diabetes mellitus Retained orthopedic hardware Seasonal allergies Traumatic arthritis of right ankle Trimalleolar fracture Type 2 diabetes mellitus without complications Urinary frequency Vision abnormalities Wears glasses Surgical History Surgical History Hx of cholecystectomy Family History Family History Father Diabetes mellitus Hypertension Acute myocardial infarction Cerebrovascular accident Mother Family history of malignant neoplasm Other Breast cancer Social History Social History Smoking packs per day: 0.5 Smoking cigarettes per day: 10.0 Years smoked: 15 Smoking pack-years: 7.50 Smoking end date: 12/18/74 Alcohol intake: current Alcohol use details: FEW DRINKS/YEAR Substance use: never Substance use type: does not use Gender identity (if verbalized by the patient): Male Spiritual care concerns: No Exam Narrative: APPEARANCE: No acute distress, nontoxic, resting in bed EYES: EOMI HEENT: Normocephalic, atraumatic, OMM RESPIRATORY: No respiratory distress Clear to auscultation bilaterally with no rhonchi wheezing or rales. CARDIOVASCULAR: Regular rate and rhythm without murmurs rubs or gallops. ABDOMINAL: Soft, nontender, nondistended, no rebound or guarding MUSCULOSKELETAl: Moves all extremities. No clubbing, cyanosis or edema. Bilateral calves soft nontender to palpation NEURO: Awake and alert. Following commands, speech normal, no focal deficits SKIN:: Warm, dry. No rashes lesions or abrasions PSYCHIATRIC: Normal affect/mood, Course Course Emergency Course: Patient states chest pain is resolved a
[2021-08-05 03:08] LABS: Basophils Percent Auto 0.6 % (0.2-1.2); Eosinophils Absolute Auto 0.2 K/mm3 (0-0.3); Eosinophils Percent Auto 2.5 % (0-4.4); Hematocrit 36.4 % (42.0-52.0); Hemoglobin 12.3 g/dL (14.0-18.0); Immature Granulocyte Absolute 0.01 K/mm3 (0.00-0.031); Immature Granulocyte Percent A 0.1 % (0-0.5); Lymphocytes Absolute Auto 1.13 K/mm3 (0.9-3.2); Lymphocytes Percent Auto 16.7 % (18.3-44.2); Mean Corpuscular HGB Conc 33.8 g/dl (32-36); Mean Corpuscular Hemoglobin 29.3 pg (26-34); Mean Corpuscular Volume 86.7 fl (80-100); Mean Platelet Volume 9.4 fl (7.4-10.4); Monocytes Absolute Auto 0.5 K/mm3 (0.1-0.6); Monocytes Percent Auto 7.4 % (2.6-8.5); Neutrophils Absolute Auto 4.9 K/mm3 (1.3-6.7); Neutrophils Percent Auto 72.7 % (45.5-73.1); Platelet Count Result 260 k/mm3 (150-375); White Blood Count 6.8 K/mm3 (4.5-10.0)
[2021-08-05 03:27] LABS: Prothrombin Time 12.6 Seconds (11.1-14.7)
[2021-08-05 03:28] LABS: Partial Thromboplastin Time 27.7 SECONDS (22.3-36.8)
[2021-08-05 03:38] LABS: Alanine Aminotransferase 20 U/L (4-50); Albumin Level 4.1 g/dL (3.5-5.1); Alkaline Phosphatase 134 U/L (38-126); Anion Gap 7 mmol/L (8-16); Aspartate Amino Transferase 31 U/L (17-59); Bilirubin,Total 0.5 mg/dL (0.2-1.3); Blood Urea Nitrogen 14 mg/dL (9-20); Carbon Dioxide 28 mmol/L (22-30); Chloride 99 mmol/L (98-107); Estimated CRCL calculation 64 ml/min; Estimated Glomerular Filt Rate > 60; Glucose 104 mg/dL (65-110); Lipase 88 U/L (23-300); Magnesium 1.4 mg/dL (1.6-2.3); Potassium 3.5 mmol/L (3.4-5.0); Sodium 134 mmol/L (137-145)
[2021-08-05 03:50] LABS: Troponin I < 0.012 ng/mL (0.000-0.034)
[2021-08-05] MEDS: ASPIRIN 81 MG CHEWABLE TABLET 324 MG PO (04:41)
[2021-08-05] MEDS: MAGNESIUM SULF 2 GM/WATER 50ML 2 GM/50 ML BAG IVPB (04:41)
[2021-08-05 06:19] LABS: Troponin I < 0.012 ng/mL (0.000-0.034)
[2021-08-05 07:05] LABS: SARS-CoV-2 RNA PCR Negative
--- NOTE | 2021-08-05 08:08 | PM.IMHP ---
H&P: [facility] History of Present Illness Date/Time: 08/05/21 08:08 Chief Complaint: r/o Acute Coronary Syndrome Narrative: The patient is an 81-year-old male with past medical history of hypertension, diabetes mellitus type 2 and GERD. Patient reported that he woke up from sleep at approximately 1:32 a.m. a cramp in his left lower extremity. He was able to walk around for approximately 10-15 minutes and cramping when away. However he began to notice an odd sensation or an emptiness in his chest while he was sitting down. Patient reports that he decided to come to the emergency department. He denies any fever, chills, shortness of breath, abdominal pain, nausea, vomiting chronic diarrhea. Upon arrival to the emergency department EKG, labs and imaging were obtained. EKG revealed mild T-wave abnormality, troponins have been negative, and vital signs essentially stable. Patient denies any episodes while here in the hospital in the emergency department. Labs were significant for a WBC of 6.8, hemoglobin 12.3, hematocrit 36.4, platelet 260, sodium 134 potassium 3.5, BUN 14, creatinine 0.9, magnesium 1.4, and troponins have been negative x3. EKG revealed sinus rhythm with occasional PVCs with nonspecific ST changes in the anterior leads. CTA of the chest did not reveal a pulmonary embolism. However reporting ascending aortic dilation measuring 4.3. 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 The patient does seem to be mildly confused. He would benefit from a mini-mental status exam the patient. Patient was admitted to follow serial troponins, heart rate and rhythm. Patient will follow-up with cardiology as an outpatient. He will place on a 30 day event monitor. Review of Systems Review of Systems: All systems reviewed & are unremarkable except as noted in HPI and below [facility] Past Medical History Medical History Aftercare following surgery of the musculoskeletal system Arterial vascular disease Arthritis Diabetes mellitus with autonomic neuropathy Essential (primary) hypertension Fracture of ankle with nonunion HTN (hypertension) Mixed hyperlipidemia Peripheral autonomic neuropathy due to diabetes mellitus Retained orthopedic hardware Seasonal allergies Traumatic arthritis of right ankle Trimalleolar fracture Type 2 diabetes mellitus without complications Urinary frequency Vision abnormalities Wears glasses Surgical History Surgical History Hx of cholecystectomy Family History Family History Father Diabetes mellitus Hypertension Acute myocardial infarction Cerebrovascular accident Mother Family history of malignant neoplasm Other Breast cancer Social History Social History Smoking packs per day: 0.5 Smoking cigarettes per day: 10.0 Years smoked: 15 Smoking pack-years: 7.50 Smoking status: Former smoker Smoking end date: 12/18/74 Alcohol intake: never Alcohol use details: FEW DRINKS/YEAR Substance use: never Substance use type: does not use Gender identity (if verbalized by the patient): Male Spiritual care concerns: No Meds Home Medications and Allergies Home Medications Medication Instructions Recorded Confirmed Type cetirizine 10 mg tablet 10 mg PO DAILY tablet 07/04/19 08/05/21 History multivitamin [Multiple Vitamins] 1 tablet PO DAILY 02/29/20 08/05/21 History niacin [Slo-Niacin] 500 mg PO HS 02/29/20 08/05/21 History atorvastatin 10 mg tablet 10 mg PO HS #90 tablet 01/13/21 08/05/21 Rx fluticasone propionate [Flonase 1 spray INTRANASAL BID #16 g 05/02/21 08/05/21 Rx Allergy Relief] hydrochlorothiazide 25 mg tablet 25 mg PO QAM #90 tablet 1
--- NOTE | 2021-08-05 09:13 | PC.NURSE ---
This patient, Meliton Delacruz, was admitted to [facility]. Patient/family oriented to hospital policies and general routines including ID bracelet, bed and alarms, visiting hours, pain management, procedures, bathroom and other care routines, personal items, smoking policy, room service/diet, and visiting hours. Information on how to activate the Rapid Response Team has been discussed. Patient/Family are encouraged to report perceived risks to care and to ask questions if they do not understand what they are told or what they should do.
[2021-08-05 10:57] LABS: Troponin I < 0.012 ng/mL (0.000-0.034)
[2021-08-05 12:10] LABS: Glucose Point of Care 136 mg/dl (65-105)
[2021-08-05] MEDS: amLODIPine BESYLATE 5 MG TABLET PO (13:25)
[2021-08-05] MEDS: hydroCHLOROthiazide 25 MG TABLET PO (13:25)
[2021-08-05] MEDS: FLUTICASONE PROPIONATE 0.05% NA SPR 16 GM BTL (*BKC) 1 SPRAY NASAL (13:25)
[2021-08-05] MEDS: lisinopriL 10 MG TABLET PO (13:25)
--- NOTE | 2021-08-05 14:58 | PM.DS ---
DS: Admitting Diagnosis Discharge Date 08/05/21 Admitting Diagnosis rule out acute coronary syndrome DS: Discharge Diagnosis Discharge Diagnosis (1) Chest pain: Onset Date: ~08/05/21 Code(s): R07.9 - Chest pain, unspecified Status: Acute Assessment and Plan: Monitor vital signs, I&Os, chest pain, shortness of breath and patient is a fall risk Monitor PTT, serial troponins, Serum electrolytes, and cbc Keep serum potassium >4 and keep magnesium >2 Cardiology consulted as outpatient, appreciate assistance and recommendations Monitor for bloody bowel movements,chest pain,SOB or dizziness/lightheadedness Echocardiogram performed in the emergency department revealed an LVEF of 60-65%, aortic valve possible bicuspid, grade 2 Cardiac murmur (2nd intercostal right sternal border) and grade 1 diastolic heart failure Diet: Cardiac diet (2) Hypomagnesemia: Onset Date: ~08/05/21 Code(s): E83.42 - Hypomagnesemia Status: Acute Assessment and Plan: Magnesium was noted to be 1.4 in the emergency department, Patient received 2 g IVPB magnesium in the emergency department (3) Muscle cramp: Onset Date: ~08/05/21 Code(s): R25.2 - Cramp and spasm Status: Acute Assessment and Plan: Patient had resolution of muscle cramping in the left lower extremity prior to coming to the emergency department. Patient denies any active symptoms (4) Cardiac murmur: Onset Date: ~08/05/21 Code(s): R01.1 - Cardiac murmur, unspecified Status: Acute Assessment and Plan: Auscultated grade 2 cardiac murmur, 2nd intercostal space right to the sternal boarder Patient home with Cardiology as an outpatient patient (5) Aortic stenosis: Onset Date: ~08/05/21 Qualifiers: Cardiac valve disease etiology: etiology unspecified Qualified Code(s): I35.0 - Nonrheumatic aortic (valve) stenosis Code(s): I35.0 - Nonrheumatic aortic (valve) stenosis Status: Acute Assessment and Plan: As above (6) Diastolic heart failure: Onset Date: ~08/05/21 Code(s): I50.30 - Unspecified diastolic (congestive) heart failure Status: Acute Assessment and Plan: as above Follow with cardiology outpatient DS: Summary Hospital Course Reason for hospitalization: R/o Acute coronary syndrome Hospital Course: The patient is an 81-year-old male with past medical history of hypertension, diabetes mellitus type 2 and GERD. Patient reported that he woke up from sleep at approximately 1:32 a.m. a cramp in his left lower extremity. He was able to walk around for approximately 10-15 minutes and cramping when away. However he began to notice an odd sensation or an emptiness in his chest while he was sitting down. Patient reports that he decided to come to the emergency department. He denies any fever, chills, shortness of breath, abdominal pain, nausea, vomiting chronic diarrhea. Upon arrival to the emergency department EKG, labs and imaging were obtained. EKG revealed mild T-wave abnormality, troponins have been negative, and vital signs essentially stable. Patient denies any episodes while here in the hospital in the emergency department. Labs were significant for a WBC of 6.8, hemoglobin 12.3, hematocrit 36.4, platelet 260, sodium 134 potassium 3.5, BUN 14, creatinine 0.9, magnesium 1.4, and troponins have been negative x3. EKG revealed sinus rhythm with occasional PVCs with nonspecific ST changes in the anterior leads. CTA of the chest did not reveal a pulmonary embolism. However reporting ascending aortic dilation measuring 4.3. 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 The patient does seem to be mildly confused. He would benefit from a mini-mental status exam the patient. Patient was admitted to follow serial troponins, heart r
== END 2021-08-05 16:52 | disposition home or self-care (01) ==
LOC: ANHED 06:10 → ANHCPC 07:59
PROVIDERS: Admitting Provider Internal Medicine; Emergency Provider Emergency Medicine; PCP Family Medicine; Visit Provider Internal Medicine
DX: R07.9 Chest pain, unspecified (principal); E83.42 Hypomagnesemia; I35.0 Nonrheumatic aortic (valve) stenosis; I11.0 Hypertensive heart disease with heart failure; I50.30 Unspecified diastolic (congestive) heart failure; I77.819 Aortic ectasia, unspecified site; G31.84 Mild cognitive impairment of uncertain or unknown etiology; E11.42 Type 2 diabetes mellitus with diabetic polyneuropathy; E78.2 Mixed hyperlipidemia; K21.9 Gastro-esophageal reflux disease without esophagitis; R01.1 Cardiac murmur, unspecified; R25.2 Cramp and spasm; Z20.822 Contact with and (suspected) exposure to COVID-19; Z87.891 Personal history of nicotine dependence; Z90.49 Acquired absence of other specified parts of digestive tract; Z79.82 Long term (current) use of aspirin; Z79.84 Long term (current) use of oral hypoglycemic drugs
CPT/HCPCS: 36415; 71045; 71275; 80053; 82948; 83690; 83735; 84484; 85025; 85610; 85730; 93005; 96365; 99285; A9270; C9803; G0378; J3475; Q9967; U0003; U0005

== ENCOUNTER 2022-02-10 22:49 | Inpatient (IN) | payer MEDICARE, SELFPAY ==
[2022-02-10] VITALS (8 sets, daily range): BP systolic 106–176; BP diastolic 61–78; PULSE 63–77; RESP 13–26; TEMP 36.9; O2SAT 94–99
--- NOTE | ~2022-02-10 | XR_ITS ---
EXAMINATION: XR chest 2V DATE: 02/10/2022 23:15 INDICATION: Chest pain. TECHNIQUE: Frontal and lateral views of the chest were obtained. COMPARISON: Chest single view 08/05/2021, chest CT 02/11/2022 FINDINGS: There is mild atelectasis at left lung base. No pleural effusion or pneumothorax. The heart size is normal. Surgical clips in the right upper quadrant are likely from cholecystectomy. IMPRESSION: 1. Mild atelectasis at left lung base. Reviewed, dictated and finalized at location A.
--- NOTE | ~2022-02-10 | XR_ITS ---
MODIFIED ESOPHAGRAM HISTORY: Difficulty swallowing. TECHNIQUE: Modified barium esophagram was performed on 02/15/2022. I administered fluoroscopy and perf ormed the exam with speech pathologist. Patient was seated for lateral fluoroscopic imaging for alma stion of thin liquids, pudding, solids and quantified amounts, followed by thin liquids in uncontroll ed amounts. This was recorded on tape. A single fluoroscopic spot image was also recorded. The DAP fo r this procedure was 0.737 Gycm2. The amount of fluoroscopy time used during this procedure was 1.0 m inutes. FINDINGS: Oral stage: Adequate function. Pharyngeal stage: Reduced laryngeal elevation and tongue base retraction with recurrent laryngeal pen etration without aspiration. Cervical/esophageal stage: Adequate function. IMPRESSION: Pharyngeal dysphagia with recurrent laryngeal penetration without aspiration. Please cor relate with speech pathologist findings and specific feeding recommendations. Reviewed, dictated and finalized at location A. IMPRESSION: Pharyngeal dysphagia with recurrent laryngeal penetration without a spiration. Please correlate with speech pathologist findings and specific feed ing recommendations.
--- NOTE | ~2022-02-10 | CT_ITS ---
EXAMINATION: CT abdomen pelvis wo con DATE: 02/11/2022 09:02 INDICATION: Acute abdominal pain TECHNIQUE: Computed tomography (CT) of the abdomen and pelvis was performed without intravenous contr ast. The dose-length product (DLP) was 589.77 mGy-cm. Automated exposure control and iterative recons truction technique were employed. COMPARISON: 02/02/2013 FINDINGS: Minimal dependent atelectasis is present in the lung bases. Cardiomegaly is noted. There is a small sliding hiatal hernia. The gallbladder is surgically absent. The liver, spleen, pancreas, an d adrenal glands are normal. Contrast from earlier CT opacifies the urinary tract. There is marked di stention of the urinary bladder. There is marked enlargement of the prostate. 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 There is a 1.6 cm exophytic mass in the interpolar region of the posteri or medial left kidney. No pathologically enlarged abdominal or pelvic lymph nodes are identified. The re is no free intraperitoneal gas or evidence of bowel obstruction. Colonic diverticulosis is present without evidence of diverticulitis. The appendix is normal. There is moderate lumbar spondylosis. IMPRESSION: 1. Marked distention of the urinary bladder. 2. Prostatomegaly. 3. Indeterminate soft tissue density mass of the left kidney which could reflect proteinaceous cyst v ersus neoplasm. Follow-up by MRI or CT without and with contrast is recommended. Reviewed, dictated and finalized at location B. IMPRESSION: 1. Marked distention of the urinary bladder. 2. Prostatomegaly. 3. Indeterminate soft tissue density mass of the left kidney which could reflec t proteinaceous cyst versus neoplasm. Follow-up by MRI or CT without and with c ontrast is recommended.
--- NOTE | ~2022-02-10 | CT_ITS ---
EXAMINATION: CTA chest PE protocol DATE: 02/11/2022 02:36 INDICATION: Bilateral chest pain. Dyspnea. TECHNIQUE: Computed tomography angiography (CTA) of the chest was performed with 100 mL Omnipaque-350 intravenous contrast timed to evaluate the pulmonary arteries. Coronal maximum intensity projection 3D-reconstructions were created by the technologist. Automated exposure control and iterative reconst ruction technique were employed. The dose-length product was 423.10 mGy-cm. COMPARISON: Chest CT 08/05/2021 FINDINGS: The lungs demonstrate mild atelectasis. There are nodules at left major fissure measuring u p to 5 mm, likely benign. No pleural effusion. Cardiomegaly is noted. There are coronary artery calci fications. No pericardial effusion. There is ectasia of ascending aorta measuring 4.4 cm. There is no pulmonary embolus. 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 There are changes of cholecystectomy. There is mild thoracic spondylosis. IMPRESSION: 1. No pulmonary embolus. 2. Stable ectasia of ascending aorta measuring 4.4 cm. Reviewed, dictated and finalized at location A.
--- NOTE | ~2022-02-10 | MR_ITS ---
EXAMINATION: MR abdomen wo/w con DATE: 02/11/2022 15:58 INDICATION: Left kidney mass TECHNIQUE: Magnetic resonance imaging (MRI) of the abdomen was performed without and with 18 mL Multi thai intravenous contrast. Sequences included coronal T2-weighted SS-FSE, coronal and axial FS 2D-F IESTA, axial STIR FSE, axial T2-weighted SS-FSE, axial T2-weighted FS SS-FSE, axial diffusion-weighte d SE, axial dual-echo T1-weighted FSPGR, and axial and coronal T1-weighted LAVA. Postcontrast axial T 1-weighted LAVA images were obtained in a time course. Postcontrast coronal T1-weighted LAVA images w ere obtained. COMPARISON: CT dated 02/11/2022 FINDINGS: Heart size is normal. No pericardial or pleural effusion. Very small sliding-type hiatal hernia. The liver, spleen, pancreas and bilateral adrenal glands are normal. Cholecystectomy clips at the gallbla dder fossa. 1.4 cm T2 hypointense, T1 hyperintense nonenhancing complex proteinaceous versus hemorrha gic cyst at the interpolar region of the left kidney which corresponds to the lesion of concern on pr ior CT. A couple <4 mm T2 hyperintense cysts at the upper pole of the right kidney. Additional 4 mm n onenhancing lesion at the lower pole of the right kidney which follows fat signal and with fat attenu ation on prior CT consistent with a small angiomyolipoma. Visualized portions of the bowels are unrem arkable. No pathologically enlarged abdominal lymphadenopathy. Bone marrow signal is normal throughou t. IMPRESSION: 1. 1.4 cm complex proteinaceous/hemorrhagic cyst at the left kidney corresponding to the lesion of co ncern on prior CT. Reviewed, dictated and finalized at location A. IMPRESSION: 1. 1.4 cm complex proteinaceous/hemorrhagic cyst at the left kidney correspondi ng to the lesion of concern on prior CT.
--- NOTE | ~2022-02-10 | XR_ITS ---
EXAMINATION: XR barium swallow modified DATE: 02/12/2022 14:05 INDICATION: Choking. TECHNIQUE: The patient was given barium-containing material of multiple consistencies to swallow by t edi speech pathologist while I performed fluoroscopy. Fluoroscopy exposure time was 1.6 minutes. The n umber of fluoroscopy images saved to the PACS was 1. Dose-area product was 1.008 Gy-cm^2. FINDINGS: There is laryngeal penetration to the level of the larynx without cough with expected aspiration with thin liquids via cup. IMPRESSION: 1. Laryngeal penetration to the level of the larynx without cough with expected aspiration. 2. Please refer to the speech therapy report for recommendations. Reviewed, dictated and finalized at location A.
--- NOTE | ~2022-02-10 | XR_ITS ---
EXAMINATION: XR abdomen/kub 1V DATE: 02/11/2022 23:18 INDICATION: Hematuria. Ahumada catheter placement. TECHNIQUE: A supine view of the abdomen was obtained. COMPARISON: CT abdomen and pelvis 02/11/2022 FINDINGS: There are no dilated loops of bowel. The upper abdomen is excluded. There is a moderate vol ume of stool in the colon. There is no visible urolithiasis. IMPRESSION: 1. No etiology for hematuria. 2. Ahumada catheter not visualized. Reviewed, dictated and finalized at location A.
--- NOTE | 2022-02-10 22:57 | ECG_ITS ---
Measurements Intervals [place] Rate: 61 P: 26 VA: 172 QRS: -11 QRSD: 109 T: 73 QT: 425 QTc: 431 Interpretive Statements SINUS RHYTHM BASELINE ARTIFACT NONSPECIFIC ST AND T-WAVE ABNORMALITY BORDERLINE ECG COMPARED TO ECG 08/05/2021 02:46:03 NO SIGNIFICANT CHANGES Electronically Signed On 02-11-2022 15:08:31 CDT by Anmol Fernadnez M.D.
--- NOTE | 2022-02-10 23:24 | ECG_ITS ---
Measurements Intervals [place] Rate: 61 P: 32 DE: 179 QRS: -6 QRSD: 102 T: 59 QT: 425 QTc: 431 Interpretive Statements SINUS RHYTHM NONSPECIFIC ST & T-WAVE ABNORMALITY BORDERLINE ECG COMPARED TO ECG 02/10/2022 23:01:00 T-WAVE ABNORMALITY NOW PRESENT Electronically Signed On 02-11-2022 15:08:47 CDT by Anmol Fernandez M.D.
[2022-02-10 23:26] LABS: Basophils Percent Auto 0.5 % (0.2-1.2); Eosinophils Absolute Auto 0.1 K/mm3 (0-0.3); Hematocrit 39.3 % (42.0-52.0); Hemoglobin 13.4 g/dL (14.0-18.0); Immature Granulocyte Absolute 0.03 K/mm3 (0.00-0.031); Immature Granulocyte Percent A 0.3 % (0-0.5); Lymphocytes Absolute Auto 1.53 K/mm3 (0.9-3.2); Lymphocytes Percent Auto 17.7 % (18.3-44.2); Mean Corpuscular HGB Conc 34.1 g/dl (32-36); Mean Corpuscular Hemoglobin 29.3 pg (26-34); Mean Platelet Volume 8.8 fl (7.4-10.4); Monocytes Absolute Auto 0.5 K/mm3 (0.1-0.6); Monocytes Percent Auto 5.9 % (2.6-8.5); Neutrophils Absolute Auto 6.5 K/mm3 (1.3-6.7); Neutrophils Percent Auto 74.6 % (45.5-73.1); Platelet Count Result 304 k/mm3 (150-375); Red Blood Count 4.57 M/mm3 (4.6-6.20); Red Cell Distribution Width 12.8 % (11.5-14.5); White Blood Count 8.7 K/mm3 (4.5-10.0)
[2022-02-10] MEDS: ASPIRIN 81 MG CHEWABLE TABLET 324 MG PO (23:30)
[2022-02-10] MEDS: NITROGLYCERIN SL 0.4 MG TABLET SUBLINGUAL (23:34)
[2022-02-10 23:35] LABS: Partial Thromboplastin Time 27.6 SECONDS (22.3-36.8); Prothrombin Time 12.9 Seconds (11.1-14.7)
[2022-02-10 23:38] LABS: Alanine Aminotransferase 16 U/L (6-50); Albumin Level 4.4 g/dL (3.5-5.1); Alkaline Phosphatase 107 U/L (38-126); Anion Gap 12 mmol/L (8-16); Aspartate Amino Transferase 32 U/L (17-59); Bilirubin,Total 0.6 mg/dL (0.2-1.3); Blood Urea Nitrogen 9 mg/dL (9-20); Calcium 8.6 mg/dL (8.4-10.2); Carbon Dioxide 27 mmol/L (22-30); Chloride 88 mmol/L (98-107); Estimated CRCL calculation 69 ml/min; Estimated Glomerular Filt Rate > 60; Glucose 135 mg/dL (65-110); Lipase 67 U/L (23-300); Potassium 3.5 mmol/L (3.4-5.0); Sodium 127 mmol/L (137-145)
[2022-02-10 23:50] LABS: Troponin I < 0.012 ng/mL (0.000-0.034)
[2022-02-11] VITALS (41 sets, daily range): BP systolic 104–154; BP diastolic 59–81; PULSE 56–83; RESP 11–22; TEMP 36.3–36.6; O2SAT 95–100; BMI 25.9
[2022-02-11 00:13] LABS: NT Pro B Type Natriuretic Pept 94 pg/mL (5-100)
--- NOTE | 2022-02-11 00:38 | ED.GENADULT ---
HPI - General Adult General Chief complaint: Chest Pain Stated complaint: cp Time Seen by Provider: 02/10/22 23:12 History of Present Illness HPI narrative: this is an 81-year-old male presenting ED with a chief complaint of chest pain. Chest pain started at approximately 10:00 p.m.. It is across the lower portion of his rib cage. Started when he was watching TV. The pain is described as a heaviness, that is nonradiating, improving. Patient experienced pain like this before. There are no exacerbating or alleviating factors. It is associated with dyspnea. He has not vomited, he has not become diaphoretic, it is not associated with exertion. patient denies fever, chills, productive cough, history of blood clots. chronic lower extremity edema of his right ankle from an ankle fracture. Patient has a history of diastolic heart failure Related Data Home Medications Medication Instructions Recorded Confirmed cetirizine 10 mg tablet (Zyrtec) 10 mg PO DAILY 07/04/19 01/04/22 multivitamin (Multiple Vitamins 1 tablet PO DAILY 02/29/20 01/04/22 tablet) niacin 500 mg tablet,extended 500 mg PO HS 02/29/20 01/04/22 release (Slo-Niacin) aspirin 81 mg chewable tablet 81 mg PO DAILY 08/05/21 01/04/22 omeprazole 20 mg capsule,delayed 20 mg PO DAILY 08/05/21 01/04/22 release Allergies Allergy/AdvReac Type Severity Reaction Status Date / Time neomycin Allergy Mild Rash Verified 02/10/22 23:02 Sulfa (Sulfonamide AdvReac Intermediate Nausea Verified 02/10/22 23:02 Antibiotics) Review of Systems Review of Systems: CONSTITUTIONAL: Denies night sweats. EYES: No eye pain ENT: Denies rhinorrhea CARDIOVASCULAR: Denies palpitations RESPIRATORY: Denies hemoptysis GASTROINTESTINAL: Denies hematemesis GENITOURINARY: Denies hematuria. SKIN: Denies rash MUSCULOSKELETAL: Denies myalgia. NEUROLOGIC: Denies weakness. PSYCHIATRIC: Denies delusions PMFSH Past Medical History Medical History Aftercare following surgery of the musculoskeletal system Arterial vascular disease Arthritis Diabetes mellitus with autonomic neuropathy Essential (primary) hypertension Fracture of ankle with nonunion HTN (hypertension) Mixed hyperlipidemia Peripheral autonomic neuropathy due to diabetes mellitus Retained orthopedic hardware Seasonal allergies Traumatic arthritis of right ankle Trimalleolar fracture Type 2 diabetes mellitus without complications Urinary frequency Vision abnormalities Wears glasses Surgical History Surgical History Hx of cholecystectomy Family History Family History Father Diabetes mellitus Hypertension Acute myocardial infarction Cerebrovascular accident Mother Family history of malignant neoplasm Other Breast cancer Social History Social History Smoking status: Former smoker Tobacco type: cigarettes Smoking end date: 12/18/74 Alcohol intake: never Alcohol use details: FEW DRINKS/YEAR Substance use: never Substance use type: does not use Gender identity (if verbalized by the patient): Male Spiritual care concerns: No Exam Narrative: APPEARANCE: He appears his stated age. He has 4-5 word dyspnea. Head atraumatic. EYES: PERRLA/EOMI, NOSE: Normal no drainage NECK: Supple, Trachea midline RESPIRATORY: CTAB, Five word dyspnea CARDIOVASCULAR: S1S2 appreciated ABDOMINAL: Soft, nontender, nondistended, MUSCULOSKELETAl: No obvious deformities NEURO: Alert. Moving 4/4 extremities SKIN:: Warm, dry. Normal color PSYCHIATRIC: Normal affect Course Vital Signs Vital signs: Vital Signs Temperature 98.4 F 02/10/22 22:58 Pulse Rate 64 02/10/22 22:58 Respiratory Rate 26 H 02/10/22 22:58 Blood Pressure 176/78 H 02/10/22 22:58 Pulse Oximetry 99 0
[2022-02-11] MEDS: SODIUM CHLORIDE 0.9% IV 1,000 ML 999 ML IV CONT ×2 (00:45→02:10)
[2022-02-11 02:54] LABS: Troponin I < 0.012 ng/mL (0.000-0.034)
[2022-02-11 03:14] LABS: SARS-CoV-2 RNA PCR Negative
[2022-02-11 05:32] LABS: Troponin I < 0.012 ng/mL (0.000-0.034)
--- NOTE | 2022-02-11 08:30 | PM.IMHP ---
H&P: HPI History of Present Illness Date/Time: 02/11/22 08:30 Chief Complaint: chest pain Narrative: the patient is an 81-year-old male with past medical history of hypertension, diabetes mellitus type 2, GERD. Patient was getting ready for bed around 10:00 p.m. last night when he developed some sudden chest pain in his epigastric area. He was able to walk around for approximately 20 minute sensitive side of the head again before he decided to come to the emergency department for further evaluation. Patient denies any fever, chills shortness of breath, abdominal pain nausea vomiting or upset stomach. Upon arrival to the emergency department labs and imaging were obtained. Patient had a WBC 8.7, hemoglobin 13.4, hematocrit 39.3 and platelet 304, sodium 127, potassium 3.5, chloride 88, BUN 9 and creatinine is 0.8 with a GFR greater than 60. Normal LFTs and negative troponin. [address] of the chest with PE protocol was ordered. A CT PE ED was significant for 4.2 x 4.1 cm thoracic aneurysm with no evidence of dissection or rupture -this is stable from comparison. Patient was also noted to be hyponatremic and hypochloremic and he received 1 L of normal saline in the emergency department continue to monitor serum electrolytes will admitted to the floor. Patient reports this chest pain is resolved and he no longer has symptoms associated with GERD or chest pain. Review of Systems Review of Systems: All systems reviewed & are unremarkable except as noted in HPI and below PMFSH Past Medical History Medical History Aftercare following surgery of the musculoskeletal system Arterial vascular disease Arthritis Diabetes mellitus with autonomic neuropathy Essential (primary) hypertension Fracture of ankle with nonunion HTN (hypertension) Mixed hyperlipidemia Peripheral autonomic neuropathy due to diabetes mellitus Retained orthopedic hardware Seasonal allergies Traumatic arthritis of right ankle Trimalleolar fracture Type 2 diabetes mellitus without complications Urinary frequency Vision abnormalities Wears glasses Surgical History Surgical History Hx of cholecystectomy Family History Family History Father Diabetes mellitus Hypertension Acute myocardial infarction Cerebrovascular accident Mother Family history of malignant neoplasm Other Breast cancer Social History Social History Smoking status: Former smoker Alcohol intake: never Alcohol use details: FEW DRINKS/YEAR Substance use: never Substance use type: does not use Gender identity (if verbalized by the patient): Male Spiritual care concerns: No Meds Home Medications and Allergies Home Medications Medication Instructions Recorded Confirmed Type cetirizine 10 mg tablet (Zyrtec) 10 mg PO DAILY 07/04/19 02/11/22 History multivitamin (Multiple Vitamins 1 tablet PO DAILY 02/29/20 02/11/22 History tablet) niacin 500 mg tablet,extended 500 mg PO HS 02/29/20 02/11/22 History release (Slo-Niacin) hydrochlorothiazide 25 mg tablet 25 mg PO QAM #90 tabs 05/18/21 02/11/22 Rx aspirin 81 mg chewable tablet 81 mg PO DAILY 08/05/21 02/11/22 History omeprazole 20 mg capsule,delayed 20 mg PO DAILY 08/05/21 02/11/22 History release metformin 500 mg tablet 500 mg PO BID #180 tabs 09/18/21 02/11/22 Rx atorvastatin 10 mg tablet 10 mg PO HS #90 tabs 01/04/22 02/11/22 Rx fluticasone propionate 50 1 spray intranasal BID #16 grams 01/04/22 02/11/22 Rx mcg/actuation nasal spray,suspension (Flonase Allergy Relief) amlodipine 5 mg-benazepril 10 mg 1 cap PO DAILY 02/11/22 02/11/22 History capsule ferrous sulfate 325 mg (65 mg 65 mg PO DAILY 02/11/22 02/11/22 History iron) tablet (Iron (ferrous sulfate)) Allergies A
[2022-02-11] MEDS: FERROUS SULFATE 324 MG TABLET PO (09:45)
[2022-02-11] MEDS: MULTIVITAMINS THERAPEUTIC TAB (*BKC) 1 TABLET PO (09:45)
[2022-02-11] MEDS: FLUTICASONE PROPIONATE 0.05% NA SPR 16 GM BTL (*BKC) 1 SPRAY NASAL (09:45)
[2022-02-11] MEDS: ASPIRIN 81 MG CHEWABLE TABLET PO (09:45)
[2022-02-11] MEDS: LORATADINE 10 MG TABLET PO (09:45)
[2022-02-11] MEDS: lisinopriL 10 MG TABLET PO (09:45)
[2022-02-11] MEDS: hydroCHLOROthiazide 25 MG TABLET PO (09:45)
[2022-02-11] MEDS: amLODIPine BESYLATE 5 MG TABLET PO (09:45)
[2022-02-11] MEDS: PANTOPRAZOLE 40 MG TABLET PO (09:45)
--- NOTE | 2022-02-11 13:00 | PC.NURSE ---
Bladder scanned per orders. Results over 999 mls. Ahumada catheter inserted as ordered without difficulty. Pt tolerate well. 1000 mls clear yellow urine returned.
[2022-02-11 14:59] LABS: Appearance Urine Slightly Cloudy (Clear); Bilirubin Urine Negative (Negative); Blood Urine 3+ (Negative); Color Urine Yellow (Yellow); Glucose Urine UA Negative (Negative); Ketones Urine Negative (Negative); Leukocyte Esterase Ur Negative LEU/UL (NEGATIVE); Nitrate Urine Negative (Negative); Protein Urine Negative (Negative); Specific Grav Ur 1.015 (1.001-1.035); Urobilinogen Urine 0.2 mg/dL (<2.0)
[2022-02-11 15:06] LABS: Bacteria Urine Trace /hpf; RBC Urine >75 /hpf (0-2); Squamous Epithelial Cell Urine Rare /hpf (Few)
[2022-02-11 15:07] LABS: Add Urine Microscopic? YES
[2022-02-11] MEDS: ATORVASTATIN 10 MG TABLET PO (20:26)
[2022-02-11] MEDS: NIACIN SA 500 MG TABLET PO (20:26)
--- NOTE | 2022-02-11 21:29 | PC.NURSE ---
Waiting for pharmacy to send patient's missing oral and IV medications. Patient transferred from IMU and they reported his medications were no longer there either. Flagyl given late @ 2134.
[2022-02-11 23:16] LABS: Add Urine Microscopic? YES; Appearance Urine Cloudy (Clear); Bilirubin Urine 2+ (Negative); Blood Urine 3+ (Negative); Color Urine Red (Yellow); Glucose Urine UA Negative (Negative); Ketones Urine Trace mg/dL (Negative); Leukocyte Esterase Ur 3+ LEU/UL (Negative); Nitrate Urine Negative (Negative); Protein Urine 3+ mg/dL (Negative); Specific Grav Ur 1.015 (1.001-1.035)
[2022-02-11 23:23] LABS: RBC Urine >75 /hpf (0-2); WBC Urine >75 /hpf
--- NOTE | 2022-02-11 23:45 | PC.NURSE ---
Upon initial assessment @1999 pt found to be AOx3 and independent in his room. At approximately 2200 patient had wandered into another pt's room and stated I am confused. I don't feel right . LACQUER PIN PRESS OPERATOR stated he had just been woken up to do vitals. Patient was only oriented to self and unable to tell me where he was, the date, or why he was in the hospital. Patient was reoriented and placed on bed alarm and vitals were stable at baseline. When reassessed pt was able to state name and , that he was at [facility], and month/year. AOx3 currently and complaining of pain at catheter site. KUB, UA, and pain medication has been ordered.
[2022-02-12] VITALS (9 sets, daily range): BP systolic 117–164; BP diastolic 60–88; PULSE 58–94; RESP 16–18; TEMP 35.9–36.8; O2SAT 100
[2022-02-12] MEDS: LORazepam INJ (*CRX) 2 MG/ML VIAL 1 MG IV PUSH (06:02)
[2022-02-12 06:16] LABS: Alveolar/Arterial O2 Gradient 3.2 mmHg; Base Excess ABG 3.1 mEq/l (+/-2.0); Fractional Inspired Oxygen 21 %; Oxygen Content ABG 18.4 %vol (16.0-22.0); Oxygen Saturation ABG 98.2 % (95.0-100.0); Oxyhemoglobin 96.9 % THb (90.0-100.0); PCO2 ABG 34.4 mmHg (35.0-45.0); PO2 ABG 105.3 mmHg (80.0-100.0); PO2 FiO2 Ratio Arterial Blood 5.01 %; Total Hemoglobin 13.4 g/dL (12.0-18.0); pH ABG 7.496 (7.350-7.450)
[2022-02-12 06:30] LABS: Hematocrit 37.4 % (42.0-52.0); Hemoglobin 12.8 g/dL (14.0-18.0); Mean Corpuscular HGB Conc 34.2 g/dl (32-36); Mean Corpuscular Hemoglobin 29.2 pg (26-34); Mean Corpuscular Volume 85.4 fl (80-100); Mean Platelet Volume 8.8 fl (7.4-10.4); Platelet Count Result 263 k/mm3 (150-375); Red Blood Count 4.38 M/mm3 (4.6-6.20); Red Cell Distribution Width 12.6 % (11.5-14.5); White Blood Count 13.2 K/mm3 (4.5-10.0)
[2022-02-12 06:46] LABS: Anion Gap 8 mmol/L (8-16); Blood Urea Nitrogen 7 mg/dL (9-20); Calcium 8.4 mg/dL (8.4-10.2); Carbon Dioxide 27 mmol/L (22-30); Chloride 90 mmol/L (98-107); Estimated CRCL calculation 69 ml/min; Estimated Glomerular Filt Rate > 60; Glucose 144 mg/dL (65-110); Potassium 3.4 mmol/L (3.4-5.0); Sodium 125 mmol/L (137-145)
--- NOTE | 2022-02-12 08:02 | PM.IMPN ---
Progress Note: A&P Assessment and Plan (1) Chest pain: Code(s): R07.9 - Chest pain, unspecified Status: Acute Assessment and Plan: Monitor vital signs, I&Os, chest pain, shortness of breath and patient is a fall risk Monitor PTT, serial troponins, Serum electrolytes, and cbc Keep potassium >4 and keep magnesium >2 Monitor for bloody bowel movements,chest pain,SOB or dizziness/lightheadedness patient is currently on niacin, lisinopril, atorvastatin and hold aspirin due to hematuria (2) HTN (hypertension): Code(s): I10 - Essential (primary) hypertension Status: Acute Assessment and Plan: resume home medications (3) Gastro-esophageal reflux disease without esophagitis: Code(s): K21.9 - Gastro-esophageal reflux disease without esophagitis Status: Acute Assessment and Plan: resume home medications (4) Diabetes mellitus type 2 in nonobese: Code(s): E11.9 - Type 2 diabetes mellitus without complications Status: Acute Assessment and Plan: Insulin Lispro sliding scale, Accu-checks qAc and HS and Hold oral hypoglycemics Patient received IV contrast, hold metformin 48 hours (5) Hyponatremia: Code(s): E87.1 - Hypo-osmolality and hyponatremia Status: Acute Assessment and Plan: Patient's sodium upon admission was 127. However he did receive 2 L of IV fluids in the emergency department. Initiated 1500 cc fluid restriction diet. Neuro status checks. Accurate I&Os. Ahumada catheter in place. Obtain urine osmolality and random urine sodium. (6) Altered mental state: Code(s): R41.82 - Altered mental status, unspecified Status: Acute Assessment and Plan: Possibly related to hyponatremia. Sodium level 125 this morning. He did receive 2 L of IV fluid in the emergency department upon admission this may contributed to his hyponatremia. Will continue fluid restriction diet (7) Urinary tract infection: Code(s): N39.0 - Urinary tract infection, site not specified Status: Acute Assessment and Plan: patient's urinalysis upon admission was relatively normal. However repeat urinalysis during his hospitalization revealed a possible urinary tract infection with significant hematuria. Patient did complain of abdominal pain therefore CT of the abdomen and pelvis was performed which revealed bladder distension therefore Ahumada catheter was placed. Patient was noted to significant hematuria. therefore Urology was consulted, appreciate assistance and recommendations. hold anticoagulation CBC, CMP, UA, reviewed Obtain urine culture Follow temp curve, cultures, WBC, and VS Ceftriaxone 1g IV daily (8) Hematuria: Code(s): R31.9 - Hematuria, unspecified Status: Acute Assessment and Plan: 07/22 above Subjective Date/time seen: 02/12/22 08:02 Interval history: Patient was evaluated this morning. Apparently the patient was combative yesterday after Ahumada insertion. Patient attempted to remove his Ahumada. He incidentally developed trauma and developed significant hematuria. Consulted Urology this morning. Oncology was also consulted due to the possibility of a renal mass and need for further evaluation. Patient was also noted to have a urinary tract infection this morning and started on Rocephin. Patient is hyponatremic at 1:25 a.m. which may contribute to his altered mental status associated with urinary tract infection. He did receive 2 L of IV fluids in the emergency department upon admission whenever sodium was 127. therefore he has been placed on a 1500 fluid restrictive diet. Patient reportedly had a choking episode during the night. Speech therapy will evaluate the patient this morning For possible aspiration and have a modified barium swallow performed. Soft wrist restraints discontinued due to the patient's cooperation. Family updated at bedside. Review of Systems Review of Systems:
[2022-02-12] MEDS: hydroCHLOROthiazide 25 MG TABLET PO (10:33)
[2022-02-12] MEDS: MULTIVITAMINS THERAPEUTIC TAB (*BKC) 1 TABLET PO (10:33)
[2022-02-12] MEDS: ASPIRIN 81 MG CHEWABLE TABLET PO (10:33)
[2022-02-12] MEDS: lisinopriL 10 MG TABLET PO (10:34)
[2022-02-12] MEDS: FERROUS SULFATE 324 MG TABLET PO (10:34)
[2022-02-12] MEDS: LORATADINE 10 MG TABLET PO (10:34)
[2022-02-12] MEDS: FLUTICASONE PROPIONATE 0.05% NA SPR 16 GM BTL (*BKC) 1 SPRAY NASAL ×2 (10:34→16:40)
[2022-02-12] MEDS: amLODIPine BESYLATE 5 MG TABLET PO (10:34)
[2022-02-12] MEDS: PANTOPRAZOLE 40 MG TABLET PO (10:34)
[2022-02-12 11:00] LABS: Basophils Percent Auto 0.2 % (0.2-1.2); Eosinophils Percent Auto 0.2 % (0-4.4); Hematocrit 37.2 % (42.0-52.0); Hemoglobin 12.6 g/dL (14.0-18.0); Immature Granulocyte Absolute 0.05 K/mm3 (0.00-0.031); Immature Granulocyte Percent A 0.3 % (0-0.5); Lymphocytes Absolute Auto 0.74 K/mm3 (0.9-3.2); Mean Corpuscular HGB Conc 33.9 g/dl (32-36); Mean Corpuscular Hemoglobin 29.4 pg (26-34); Mean Corpuscular Volume 86.9 fl (80-100); Mean Platelet Volume 8.8 fl (7.4-10.4); Monocytes Absolute Auto 0.7 K/mm3 (0.1-0.6); Monocytes Percent Auto 4.9 % (2.6-8.5); Neutrophils Absolute Auto 13.4 K/mm3 (1.3-6.7); Neutrophils Percent Auto 89.4 % (45.5-73.1); Platelet Count Result 260 k/mm3 (150-375); Red Blood Count 4.28 M/mm3 (4.6-6.20); Red Cell Distribution Width 12.9 % (11.5-14.5); White Blood Count 14.9 K/mm3 (4.5-10.0)
--- NOTE | 2022-02-12 12:58 | WPDURCON ---
Assessment and Plan Assessment and plan (1) Angiomyolipoma of right kidney: Code(s): D17.71 - Benign lipomatous neoplasm of kidney Status: Acute (2) Benign cyst of left kidney: Code(s): N28.1 - Cyst of kidney, acquired Status: Acute (3) BPH loc w urin obs/LUTS: Code(s): N40.1 - Benign prostatic hyperplasia with lower urinary tract symptoms Status: Acute (4) Urinary retention due to benign prostatic hyperplasia: Code(s): N40.1 - Benign prostatic hyperplasia with lower urinary tract symptoms; R33.8 - Other retention of urine Status: Acute (5) Gross hematuria: Code(s): R31.0 - Gross hematuria Status: Acute Assessment and Plan: Benign angiomamyolipoma of the right kidney which has not changed appreciably over the past 9 years. Newly identified proteinaceous cyst left kidney which appears benign on MRI scan. Urinary any retention due to BPH. For this I will start Flomax and plan a voiding trial either on Tuesday morning or Tuesday, depending on if the hematuria resolves and patient is otherwise doing. Hematuria secondary to traumatic Ahumada catheter placement. It looks like this is resolved with removal of the displaced catheter and replacement of an 18 F coude catheter. Urology Consult Note HPI Date Seen: 02/12/22 Requesting Physician: Kenia Palma MD Primary Care Provider: Meliton Washburn MD Consult Narrative Narrative: Meliton Delacruz is a 81 year old male who was admitted through the emergency department last night with a nonspecific chest pain and questionable shortness of breath. He is well known to my practice with longstanding history of BPH that is never required medical intervention. I last saw him in August 2021 and he continued to void well significant evidence of incomplete bladder emptying. For reasons which are not completely clear on, there was some question about urinary retention upon presentation. The patient states he was voiding without a sense of incomplete emptying. With placement of a urethral catheter he has had very bloody and little, if any, gricel urine output. Upon inspection it was obvious that the catheter was blown up in his prostatic urethra. In addition to this patient has a known angiomyolipoma in the right kidney - something we have followed for years without appreciable change. This admission a CT chest also demonstrated a possible mass in his left kidney. MRI scan the abdomen pelvis with without contrast showed findings consistent with a benign hemorrhagic cyst. [facility] Past Medical History Medical History Aftercare following surgery of the musculoskeletal system Arterial vascular disease Arthritis Diabetes mellitus with autonomic neuropathy Essential (primary) hypertension Fracture of ankle with nonunion HTN (hypertension) Mixed hyperlipidemia Peripheral autonomic neuropathy due to diabetes mellitus Retained orthopedic hardware Seasonal allergies Traumatic arthritis of right ankle Trimalleolar fracture Type 2 diabetes mellitus without complications Urinary frequency Vision abnormalities Wears glasses Surgical History Surgical History Hx of cholecystectomy Family History Family History Father Diabetes mellitus Hypertension Acute myocardial infarction Cerebrovascular accident Mother Family history of malignant neoplasm Other Breast cancer Social History Social History Smoking status: Former smoker Alcohol intake: never Alcohol use details: FEW DRINKS/YEAR Substance use: never Substance use type: does not use Gender identity (if verbalized by the patient): Male Spiritual care concerns: No Meds Home Medications and Allergies Home Medications
[2022-02-12 13:08] LABS: Sodium Urine Random 129 meq/L
[2022-02-12] MEDS: WATER FOR IRRIGATION, STERILE 1,000 ML BOTTLE 1000 ML (13:27)
--- NOTE | 2022-02-12 17:52 | PDONCCN ---
[facility] - Date of Consult Date/Time: 02/12/22 17:52 Requesting Physician: Kenia Palma MD Primary Care Provider: Meliton Washburn MD - Consult Narrative Reason for consult: Kidney mass and anemia Narrative: Meliton Delacruz is a 81 year old male with history of type 2 diabetes, hypertension and GERD came into the hospital with sudden onset of chest pain in the epigastric region. He denies any fever chills and shortness of breath. He has some tiredness and fatigue. Denies any melena hematochezia. Patient has been having some hematuria. He denies any weight loss. Patient has a history of anemia and takes oral iron twice a day. CTA chest showed no evidence of PE. CT abdomen and pelvis showed marked distention of the urinary bladder with indeterminate soft tissue density in the left kidney. Abdominal MRI showed 1.4 cm complex proteinaceous/hemorrhagic cyst of the left kidney. Labs showed hemoglobin of 12.6. Creatinine was normal at 0.8. He denies any other complaint. Review of Systems - Review of Systems All systems reviewed & are unremarkable except as noted in HPI and [facility] Medical History: Medical History (Last Reviewed 02/11/22 @ 00:40 by Ken Ponce MD) Aftercare following surgery of the musculoskeletal system Arterial vascular disease Arthritis Diabetes mellitus with autonomic neuropathy Essential (primary) hypertension Fracture of ankle with nonunion HTN (hypertension) Mixed hyperlipidemia Peripheral autonomic neuropathy due to diabetes mellitus Retained orthopedic hardware Seasonal allergies Traumatic arthritis of right ankle Trimalleolar fracture Type 2 diabetes mellitus without complications Urinary frequency Vision abnormalities Wears glasses Surgical History: Surgical History (Last Reviewed 02/11/22 @ 00:41 by Ken Ponce MD) Hx of cholecystectomy Family History: Family History (Last Reviewed 02/11/22 @ 06:35 by Grace Hedrick RN) Father Diabetes mellitus Hypertension Acute myocardial infarction Cerebrovascular accident Mother Family history of malignant neoplasm Other Breast cancer - Social History Social History: Social History (Last Reviewed 02/11/22 @ 00:41 by Ken Ponce MD) Gender Identity: Gender identity (if verbalized by the patient): Male Alcohol Use: Alcohol intake: never Alcohol use details: FEW DRINKS/YEAR Substance Use: Substance use: never Substance use type: does not use Others: Spiritual care concerns: No Smoking Status: Smoking status: Former smoker Approximate Smoking End Date: 1974 Exam - Vital Signs Vital Signs - 24 hr 02/11/22 22:00 02/11/22 20:00 02/11/22 20:00 Temperature 36.3 C L Pulse Rate 83 62 Respiratory Rate 18 Blood Pressure 104/81 Pulse Oximetry 95 Oxygen Delivery Room Air 02/12/22 00:00 02/11/22 20:05 02/12/22 04:00 Temperature Pulse Rate 66 58 L Respiratory Rate Blood Pressure Pulse Oximetry 95 Oxygen Delivery Room Air 02/12/22 06:00 02/12/22 08:00 02/12/22 08:00 Temperature 35.9 C L Pulse Rate 71 67 Respiratory Rate 18 Blood Pressure 164/88 H Pulse Oximetry 100 Oxygen Delivery Room Air 02/12/22 12:00 02/12/22 14:00 02/12/22 16:00 Temperature 36.8 C Pulse Rate 94 78 78 Respiratory Rate 16 Blood Pressure 117/68 Pulse Oximetry 100 Oxygen Delivery - Exam HEENT: EOMI, PERRLA, mucous membranes moist and pink Neck: No: JVD Lungs: clear to auscultation, normal air movement Heart: no murmurs, gallops, or rubs, regular rhythm, regular rate Abdomen: abdomen soft, non-distended, normal bowel sounds Extremities: normal pulses Integumentary: no abnormalities Neurological: normal speech Psychological: mental status NL, mood NL - Lab Results Laboratory Last Values WBC 14.9 K/mm3 (4.5-10.0) H 02/12/22 10:55 RBC 4.28 M/mm3 (4.6-6.20) L 02/12/22 10:55 Hgb
[2022-02-12 20:12] LABS: Iron 21 ug/dL (49-181)
[2022-02-12] MEDS: ATORVASTATIN 10 MG TABLET PO (20:15)
[2022-02-12] MEDS: NIACIN SA 500 MG TABLET PO (20:15)
[2022-02-12] MEDS: TAMSULOSIN HCL 0.4 MG CAPSULE PO (20:15)
[2022-02-12 20:21] LABS: Percent Iron Saturation 9 % (20-50)
[2022-02-12 20:49] LABS: Folic Acid 18.2 ng/mL (2.76->20)
[2022-02-12 21:59] LABS: Device ROOM AIR; Modified Allen's Test Pass; Site Drawn RIGHT RADIAL
[2022-02-13] VITALS (9 sets, daily range): BP systolic 113–117; BP diastolic 50–63; PULSE 69–94; RESP 16–18; TEMP 36.1–36.3; O2SAT 94–99
--- NOTE | 2022-02-13 07:04 | PM.IMPN ---
Progress Note: A&P Assessment and Plan (1) Chest pain: Code(s): R07.9 - Chest pain, unspecified Status: Acute Assessment and Plan: Monitor vital signs, I&Os, chest pain, shortness of breath and patient is a fall risk Monitor PTT, serial troponins, Serum electrolytes, and cbc Keep potassium >4 and keep magnesium >2 Monitor for bloody bowel movements,chest pain,SOB or dizziness/lightheadedness patient is currently on niacin, lisinopril, atorvastatin and hold aspirin due to hematuria (2) HTN (hypertension): Code(s): I10 - Essential (primary) hypertension Status: Acute Assessment and Plan: resume home medications (3) Gastro-esophageal reflux disease without esophagitis: Code(s): K21.9 - Gastro-esophageal reflux disease without esophagitis Status: Acute Assessment and Plan: resume home medications (4) Diabetes mellitus type 2 in nonobese: Code(s): E11.9 - Type 2 diabetes mellitus without complications Status: Acute Assessment and Plan: Insulin Lispro sliding scale, Accu-checks qAc and HS and Hold oral hypoglycemics Patient received IV contrast, hold metformin 48 hours (5) Hyponatremia: Code(s): E87.1 - Hypo-osmolality and hyponatremia Status: Acute Assessment and Plan: Patient's sodium upon admission was 127. However he did receive 2 L of IV fluids in the emergency department. Initiated 1500 cc fluid restriction diet. Neuro status checks. Accurate I&Os. Ahumada catheter in place. WNL urine osmolality and random urine sodium. pending a.m. labs (6) Altered mental state: Code(s): R41.82 - Altered mental status, unspecified Status: Acute Assessment and Plan: Possibly related to hyponatremia. Sodium level 125 this morning. He did receive 2 L of IV fluid in the emergency department upon admission this may contributed to his hyponatremia. Will continue fluid restriction diet (7) Urinary tract infection: Code(s): N39.0 - Urinary tract infection, site not specified Status: Acute Assessment and Plan: patient's urinalysis upon admission was relatively normal. However repeat urinalysis during his hospitalization revealed a possible urinary tract infection with significant hematuria. Patient did complain of abdominal pain therefore CT of the abdomen and pelvis was performed which revealed bladder distension therefore Ahumada catheter was placed. Patient was noted to significant hematuria. therefore Urology was consulted, appreciate assistance and recommendations. per urology notes the patient was started on Flomax and plan to perform a voiding trial either on Tuesday morning or Tuesday morning depending on if the hematuria resolved hold anticoagulation CBC, CMP, UA, reviewed Follow temp curve, cultures, WBC, and VS Ceftriaxone 1g IV daily (8) Hematuria: Code(s): R31.9 - Hematuria, unspecified Status: Acute Assessment and Plan: 07/22 above Subjective Date/time seen: 02/13/22 07:04 Patient is more alert this morning. He did not remember the events from yesterday. He continues to have blood in his Ahumada catheter. Urology is following. Oncology followed the patient in the inpatient setting and provided him with some information on the 1.4 cm complex proteinaceous/hemorrhagic cyst of the left kidney. no further workup was needed at this time, but will follow up in the office for Further anemia workup. Review of Systems Review of Systems: All systems reviewed & are unremarkable except as noted in HPI and below Exam Narrative: General: No acute distress. Mental Status: Awake, alert and oriented to person, place, and time with clear speech. Skin: Skin in warm, dry and intact without rashes or lesions. Head: Normocephalic and atraumatic. Eyes: Conjunctivae are clear without exudates or hemorrhage. Sclera is non-icteric. EOM are intact, PERRLA. Ears: The external ear
[2022-02-13] MEDS: lisinopriL 10 MG TABLET PO (08:37)
[2022-02-13] MEDS: hydroCHLOROthiazide 25 MG TABLET PO (08:37)
[2022-02-13] MEDS: FERROUS SULFATE 324 MG TABLET PO (08:37)
[2022-02-13] MEDS: MULTIVITAMINS THERAPEUTIC TAB (*BKC) 1 TABLET PO (08:37)
[2022-02-13] MEDS: amLODIPine BESYLATE 5 MG TABLET PO (08:37)
[2022-02-13] MEDS: FLUTICASONE PROPIONATE 0.05% NA SPR 16 GM BTL (*BKC) 1 SPRAY NASAL ×2 (08:37→17:14)
[2022-02-13] MEDS: LORATADINE 10 MG TABLET PO (08:37)
[2022-02-13] MEDS: PANTOPRAZOLE 40 MG TABLET PO (08:37)
[2022-02-13 12:39] LABS: Basophils Percent Auto 0.2 % (0.2-1.2); Eosinophils Percent Auto 0.2 % (0-4.4); Hematocrit 33.7 % (42.0-52.0); Hemoglobin 11.3 g/dL (14.0-18.0); Immature Granulocyte Absolute 0.05 K/mm3 (0.00-0.031); Immature Granulocyte Percent A 0.5 % (0-0.5); Lymphocytes Absolute Auto 0.43 K/mm3 (0.9-3.2); Lymphocytes Percent Auto 3.9 % (18.3-44.2); Mean Corpuscular HGB Conc 33.5 g/dl (32-36); Mean Corpuscular Volume 86.4 fl (80-100); Mean Platelet Volume 8.8 fl (7.4-10.4); Monocytes Absolute Auto 0.5 K/mm3 (0.1-0.6); Monocytes Percent Auto 4.8 % (2.6-8.5); Neutrophils Percent Auto 90.4 % (45.5-73.1); Platelet Count Result 251 k/mm3 (150-375); Red Cell Distribution Width 12.9 % (11.5-14.5)
[2022-02-13 12:54] LABS: Alanine Aminotransferase 14 U/L (6-50); Albumin Level 3.6 g/dL (3.5-5.1); Alkaline Phosphatase 102 U/L (38-126); Anion Gap 9 mmol/L (8-16); Aspartate Amino Transferase 27 U/L (17-59); Bilirubin,Total 0.5 mg/dL (0.2-1.3); Blood Urea Nitrogen 12 mg/dL (9-20); Calcium 7.9 mg/dL (8.4-10.2); Carbon Dioxide 28 mmol/L (22-30); Chloride 87 mmol/L (98-107); Estimated CRCL calculation 69 ml/min; Estimated Glomerular Filt Rate > 60; Glucose 208 mg/dL (65-110); Potassium 3.3 mmol/L (3.4-5.0); Sodium 124 mmol/L (137-145)
[2022-02-13] MEDS: TAMSULOSIN HCL 0.4 MG CAPSULE PO (20:12)
[2022-02-13] MEDS: NIACIN SA 500 MG TABLET PO (20:12)
[2022-02-13] MEDS: ATORVASTATIN 10 MG TABLET PO (20:12)
[2022-02-14] VITALS (9 sets, daily range): BP systolic 114–135; BP diastolic 54–58; PULSE 69–84; RESP 14–18; TEMP 36.1–36.3; O2SAT 96–100
[2022-02-14 06:22] LABS: Basophils Percent Auto 0.3 % (0.2-1.2); Eosinophils Absolute Auto 0.1 K/mm3 (0-0.3); Eosinophils Percent Auto 1.7 % (0-4.4); Hematocrit 31.8 % (42.0-52.0); Hemoglobin 10.8 g/dL (14.0-18.0); Immature Granulocyte Absolute 0.04 K/mm3 (0.00-0.031); Immature Granulocyte Percent A 0.6 % (0-0.5); Lymphocytes Percent Auto 11.1 % (18.3-44.2); Mean Corpuscular Hemoglobin 29.2 pg (26-34); Mean Corpuscular Volume 85.9 fl (80-100); Mean Platelet Volume 9.4 fl (7.4-10.4); Monocytes Absolute Auto 0.6 K/mm3 (0.1-0.6); Monocytes Percent Auto 7.9 % (2.6-8.5); Neutrophils Absolute Auto 5.7 K/mm3 (1.3-6.7); Neutrophils Percent Auto 78.4 % (45.5-73.1); Platelet Count Result 248 k/mm3 (150-375); Red Cell Distribution Width 12.7 % (11.5-14.5); White Blood Count 7.2 K/mm3 (4.5-10.0)
[2022-02-14 06:38] LABS: Alanine Aminotransferase 11 U/L (6-50); Albumin Level 3.2 g/dL (3.5-5.1); Alkaline Phosphatase 90 U/L (38-126); Anion Gap 10 mmol/L (8-16); Aspartate Amino Transferase 20 U/L (17-59); Bilirubin,Total 0.5 mg/dL (0.2-1.3); Blood Urea Nitrogen 12 mg/dL (9-20); Carbon Dioxide 27 mmol/L (22-30); Chloride 88 mmol/L (98-107); Estimated CRCL calculation 78 ml/min; Estimated Glomerular Filt Rate > 60; Glucose 138 mg/dL (65-110); Potassium 3.1 mmol/L (3.4-5.0); Sodium 125 mmol/L (137-145)
--- NOTE | 2022-02-14 07:01 | PM.IMPN ---
Progress Note: A&P Assessment and Plan (1) Chest pain: Code(s): R07.9 - Chest pain, unspecified Status: Acute Assessment and Plan: Monitor vital signs, I&Os, chest pain, shortness of breath and patient is a fall risk Monitor PTT, serial troponins, Serum electrolytes, and cbc Keep potassium >4 and keep magnesium >2 Monitor for bloody bowel movements,chest pain,SOB or dizziness/lightheadedness patient is currently on niacin, lisinopril, atorvastatin and hold aspirin due to hematuria (2) HTN (hypertension): Code(s): I10 - Essential (primary) hypertension Status: Acute Assessment and Plan: resume home medications (3) Gastro-esophageal reflux disease without esophagitis: Code(s): K21.9 - Gastro-esophageal reflux disease without esophagitis Status: Acute Assessment and Plan: resume home medications (4) Diabetes mellitus type 2 in nonobese: Code(s): E11.9 - Type 2 diabetes mellitus without complications Status: Acute Assessment and Plan: Insulin Lispro sliding scale, Accu-checks qAc and HS and Hold oral hypoglycemics Patient received IV contrast, hold metformin 48 hours (5) Hyponatremia: Code(s): E87.1 - Hypo-osmolality and hyponatremia Status: Acute Assessment and Plan: Patient's sodium upon admission was 127. However he did receive 2 L of IV fluids in the emergency department. Initiated 1000 cc fluid restriction diet. add NS x1. Neuro status checks. Accurate I&Os. Ahumada catheter in place. WNL urine osmolality and random urine sodium. Monitor serum electrolytes (6) Altered mental state: Code(s): R41.82 - Altered mental status, unspecified Status: Acute Assessment and Plan: Possibly related to hyponatremia. Sodium level 125 this morning. He did receive 2 L of IV fluid in the emergency department upon admission this may contributed to his hyponatremia. Will continue fluid restriction diet (7) Urinary tract infection: Code(s): N39.0 - Urinary tract infection, site not specified Status: Acute Assessment and Plan: patient's urinalysis upon admission was relatively normal. However repeat urinalysis during his hospitalization revealed a possible urinary tract infection with significant hematuria. Patient did complain of abdominal pain therefore CT of the abdomen and pelvis was performed which revealed bladder distension therefore Ahumada catheter was placed. Patient was noted to significant hematuria. therefore Urology was consulted, appreciate assistance and recommendations. per urology notes the patient was started on Flomax and plan to perform a voiding trial either on Tuesday morning or Tuesday morning depending on if the hematuria resolved hold anticoagulation CBC, CMP, UA, reviewed Follow temp curve, cultures, WBC, and VS Ceftriaxone 1g IV daily (8) Hematuria: Code(s): R31.9 - Hematuria, unspecified Status: Acute Assessment and Plan: / above Subjective Date/time seen: 02/14/22 07:01 patient continues to have blood in his Ahumada catheter. Urology consulted. Dr. Melendez evaluated the patient will follow them up with anemia workup on the outpatient basis. Benign cyst found on right kidney. No acute events reported by RN during the night. Spoke with Case Management about the patient's plan of care. Patient would benefit from possible home health services. Review of Systems Review of Systems: All systems reviewed & are unremarkable except as noted in HPI and below Exam Narrative: General: No acute distress. Mental Status: Awake, alert and oriented to person, place, and time with clear speech. Skin: Skin in warm, dry and intact without rashes or lesions. Head: Normocephalic and atraumatic. Eyes: Conjunctivae are clear without exudates or hemorrhage. Sclera is non-icteric. EOM are intact, PERRLA. Ears: The external ear and canal are non-tender and witho
[2022-02-14] MEDS: SODIUM CHLORIDE 0.9% IV 1,000 ML 75 ML IV CONT (08:55)
[2022-02-14] MEDS: POTASSIUM CHLORIDE INJ 40 MEQ in SODIUM CHLORIDE 0.9% IV 500 ML 130 MEQ IVPB (08:55)
[2022-02-14] MEDS: LORATADINE 10 MG TABLET PO (08:56)
[2022-02-14] MEDS: amLODIPine BESYLATE 5 MG TABLET PO (08:56)
[2022-02-14] MEDS: hydroCHLOROthiazide 25 MG TABLET PO (08:56)
[2022-02-14] MEDS: FLUTICASONE PROPIONATE 0.05% NA SPR 16 GM BTL (*BKC) 1 SPRAY NASAL ×2 (08:56→17:01)
[2022-02-14] MEDS: FERROUS SULFATE 324 MG TABLET PO (08:56)
[2022-02-14] MEDS: MULTIVITAMINS THERAPEUTIC TAB (*BKC) 1 TABLET PO (08:56)
[2022-02-14] MEDS: PANTOPRAZOLE 40 MG TABLET PO (08:56)
[2022-02-14] MEDS: lisinopriL 10 MG TABLET PO (08:56)
--- NOTE | 2022-02-14 10:54 | WPDUROPN2 ---
Progress Note: A&P Assessment and Plan (1) BPH loc w urin obs/LUTS: Code(s): N40.1 - Benign prostatic hyperplasia with lower urinary tract symptoms Status: Acute (2) Urinary retention due to benign prostatic hyperplasia: Code(s): N40.1 - Benign prostatic hyperplasia with lower urinary tract symptoms; R33.8 - Other retention of urine Status: Acute (3) Gross hematuria: Code(s): R31.0 - Gross hematuria Status: Acute Assessment and Plan: 81M with urethral trauma, now with appropriately positioned mariee with tea colored urine without significant GH - would plan for void trial early tuesday morning - continue tamsulosin Stacy [facility] Subjective Subjective Date/Time Seen: 02/14/22 10:54 Interval history: Feeling fine, says his heart has checked out okay Mariee still has some blood but clearing up, looks tea colored in bag Review of Systems Review of Systems: All systems reviewed & are unremarkable except as noted in HPI and below Exam Urinary Catheter: Urinary Catheter: urine dark (tea colored) Objective Data Vital Signs Vital Signs: Vital Signs - 24 hr 02/13/22 12:00 02/13/22 14:00 02/13/22 16:00 Temperature 36.1 C L Pulse Rate 85 75 80 Respiratory Rate 18 Blood Pressure 116/63 Pulse Oximetry 99 Oxygen Delivery 02/13/22 20:00 02/13/22 21:58 02/14/22 00:00 Temperature 36.1 C L Pulse Rate 78 70 74 Respiratory Rate 16 Blood Pressure 117/50 L Pulse Oximetry 94 Oxygen Delivery 02/14/22 04:00 02/14/22 05:06 02/14/22 09:05 Temperature 36.1 C L Pulse Rate 75 77 Respiratory Rate 18 Blood Pressure 134/54 L Pulse Oximetry 96 Oxygen Delivery Room Air Intake/Output Intake/Output: Intake & Output 02/11/22 02/12/22 02/13/22 02/14/22 23:59 23:59 23:59 23:59 Intake Total 3362 1130 1832 290 Output Total 1800 1975 1200 900 Balance 6706 -634 762 -522 Meds/Results Medications: Active Medications Generic Name Dose Route Start Last Admin Trade Name Freq PRN Reason Stop Dose Admin Amlodipine Besylate 5 mg 02/11/22 09:00 02/14/22 08:56 Amlodipine Besylate 5 Mg Tablet PO 03/13/22 08:59 5 mg DAILY PETER Administration Aspirin 81 mg 02/11/22 09:00 02/12/22 10:33 Aspirin 81 Mg Chewable Tablet PO 81 mg DAILY PETER Administration Atorvastatin Calcium 10 mg 02/11/22 21:00 02/13/22 20:12 Atorvastatin 10 Mg Tablet PO 10 mg HS PETER Administration Belladonna Alkaloids/Opium 1 supp.rect 02/11/22 23:41 02/12/22 00:58 Belladonna/Opium (*Crx) 16.2/60 Mg Rectal Suppository RECTAL 1 supp.rect Q12H PRN Administration Bladder Spasm Ferrous Sulfate 324 mg 02/11/22 09:00 02/14/22 08:56 Ferrous Sulfate 324 Mg Tablet PO 324 mg DAILY@0800 PETER Administration Fluticasone Propionate 1 spray 02/11/22 09:00 02/14/22 08:56 Fluticasone Propionate 0.05% Na Spr 16 Gm Btl (*Bkc) NASAL 1 spray BID PETER Administration Hydrochlorothiazide 25 mg 02/11/22 09:00 02/14/22 08:56 Hydrochlorothiazide 25 Mg Tablet PO 25 mg QAM PETER Administration Ceftriaxone Sodium/Dextrose 1 gm in 50 mls @ 100 mls/hr 02/12/22 02:00 02/14/22 02:08 Rocephin 1 Gm/D5w 50 Ml IVPB 100 mls/hr Q24H PETER Administration Sodium Chloride 1,000 mls @ 75 mls/hr 02/14/22 07:52 02/14/22 08:55 Normal Saline Iv IV CONT 02/14/22 21:11 75 mls/hr .[id number] ONE Administration Potassium Chloride 40 meq/ 520 mls @ 130 mls/hr 02/14/22 09:00 02/14/22 08:55 Sodium Chloride IVPB 02/14/22 12:59 130 mls/hr ONCE ONE Administration Lisinopril 10 mg 02/11/22 09:00 02/14/22 08:56 Lisinopril 10 Mg Tablet PO 03/13/22 08:59 10 mg DAILY PETER Administration Loratadine 10 mg 02/11/22 09:00 02/14/22 08:56 Loratadine 10 Mg Tablet PO 03/13/22 08:59 10 mg DAILY PETER Administration Metformin HCl 500 mg 02/11/22 17:00 02/12/22 09:16 Metformin Hcl 500 Mg Tablet PO
[2022-02-14] MEDS: TAMSULOSIN HCL 0.4 MG CAPSULE PO (20:42)
[2022-02-14] MEDS: ATORVASTATIN 10 MG TABLET PO (20:42)
[2022-02-14] MEDS: NIACIN SA 500 MG TABLET PO (20:42)
[2022-02-15] VITALS (9 sets, daily range): BP systolic 116–135; BP diastolic 55–74; PULSE 72–95; RESP 16–18; TEMP 36.2–37; O2SAT 96–100
[2022-02-15 06:13] LABS: Basophils Percent Auto 0.4 % (0.2-1.2); Eosinophils Absolute Auto 0.1 K/mm3 (0-0.3); Eosinophils Percent Auto 1.4 % (0-4.4); Hematocrit 33.1 % (42.0-52.0); Hemoglobin 11.2 g/dL (14.0-18.0); Immature Granulocyte Absolute 0.02 K/mm3 (0.00-0.031); Immature Granulocyte Percent A 0.3 % (0-0.5); Lymphocytes Percent Auto 10.8 % (18.3-44.2); Mean Corpuscular HGB Conc 33.8 g/dl (32-36); Mean Corpuscular Hemoglobin 29.2 pg (26-34); Mean Corpuscular Volume 86.4 fl (80-100); Mean Platelet Volume 9.1 fl (7.4-10.4); Monocytes Absolute Auto 0.5 K/mm3 (0.1-0.6); Monocytes Percent Auto 6.8 % (2.6-8.5); Neutrophils Percent Auto 80.3 % (45.5-73.1); Platelet Count Result 280 k/mm3 (150-375); Red Blood Count 3.83 M/mm3 (4.6-6.20); Red Cell Distribution Width 12.7 % (11.5-14.5); White Blood Count 7.4 K/mm3 (4.5-10.0)
--- NOTE | 2022-02-15 06:21 | WPDUROPN2 ---
Progress Note: A&P Assessment and Plan (1) Gross hematuria: Code(s): R31.0 - Gross hematuria Status: Acute Assessment and Plan: Urine clear today - catheter our for voiding trial Subjective Subjective Date/Time Seen: 02/15/22 06:21 No complaints, anxious for catheter removal Review of Systems Cardiovascular: Cardiovascular: Denies chest pain, Denies lightheadedness, Denies palpitations and Denies dyspnea Respiratory: Respiratory: Denies dyspnea Gastrointestinal: Gastrointestinal: Denies diarrhea, Denies nausea and Denies vomiting Genitourinary: Genitourinary: Denies hematuria and Denies dysuria Endocrine: Endocrine: Denies palpitations Exam Const: General: no acute distress Resp: Effort & Inspection: normal respiratory effort GI: Inspection: non-distended GI Palp: No abdominal tenderness and No Guarding due to palpation present (GI) Auscultation: normal bowel sounds Objective Data Vital Signs Vital Signs: Vital Signs - 24 hr 02/14/22 09:05 02/14/22 08:00 02/14/22 12:00 Temperature Pulse Rate 71 84 Respiratory Rate Blood Pressure Pulse Oximetry Oxygen Delivery Room Air 02/14/22 14:00 02/14/22 16:00 02/14/22 22:00 Temperature 97.0 F L 97.3 F L Pulse Rate 80 69 69 Respiratory Rate 16 14 Blood Pressure 135/57 L 114/58 L Pulse Oximetry 100 97 Oxygen Delivery 02/14/22 20:00 02/15/22 00:00 02/15/22 04:00 Temperature Pulse Rate 82 89 76 Respiratory Rate Blood Pressure Pulse Oximetry Oxygen Delivery Intake/Output Intake/Output: Intake & Output 02/12/22 02/13/22 02/14/22 02/15/22 23:59 23:59 23:59 23:59 Intake Total 1130 1832 820 50 Output Total 1975 1200 2450 Balance -847 389 -5827 50 Meds/Results Medications: Active Medications Generic Name Dose Route Start Last Admin Trade Name Freq PRN Reason Stop Dose Admin Amlodipine Besylate 5 mg 02/11/22 09:00 02/14/22 08:56 Amlodipine Besylate 5 Mg Tablet PO 03/13/22 08:59 5 mg DAILY PETER Administration Aspirin 81 mg 02/11/22 09:00 02/12/22 10:33 Aspirin 81 Mg Chewable Tablet PO 81 mg DAILY PETER Administration Atorvastatin Calcium 10 mg 02/11/22 21:00 02/14/22 20:42 Atorvastatin 10 Mg Tablet PO 10 mg HS PETER Administration Belladonna Alkaloids/Opium 1 supp.rect 02/11/22 23:41 02/12/22 00:58 Belladonna/Opium (*Crx) 16.2/60 Mg Rectal Suppository RECTAL 1 supp.rect Q12H PRN Administration Bladder Spasm Ferrous Sulfate 324 mg 02/11/22 09:00 02/14/22 08:56 Ferrous Sulfate 324 Mg Tablet PO 324 mg DAILY@0800 PETER Administration Fluticasone Propionate 1 spray 02/11/22 09:00 02/14/22 17:01 Fluticasone Propionate 0.05% Na Spr 16 Gm Btl (*Bkc) NASAL 1 spray BID PETER Administration Hydrochlorothiazide 25 mg 02/11/22 09:00 02/14/22 08:56 Hydrochlorothiazide 25 Mg Tablet PO 25 mg QAM PETER Administration Ceftriaxone Sodium/Dextrose 1 gm in 50 mls @ 100 mls/hr 02/12/22 02:00 02/15/22 03:22 Rocephin 1 Gm/D5w 50 Ml IVPB Infused Q24H PETER Infusion Lisinopril 10 mg 02/11/22 09:00 02/14/22 08:56 Lisinopril 10 Mg Tablet PO 03/13/22 08:59 10 mg DAILY PETER Administration Loratadine 10 mg 02/11/22 09:00 02/14/22 08:56 Loratadine 10 Mg Tablet PO 03/13/22 08:59 10 mg DAILY PETER Administration Metformin HCl 500 mg 02/11/22 17:00 02/12/22 09:16 Metformin Hcl 500 Mg Tablet PO Not Given BIDWM PETER Multivitamins Therapeutic 1 tablet 02/11/22 09:00 02/14/22 08:56 Multivitamins Therapeutic Tab (*Bkc) PO 1 tablet DAILY PETER Administration Niacin 500 mg 02/11/22 21:00 02/14/22 20:42 Niacin Sa 500 Mg Tablet PO 500 mg HS PETER Administration Pantoprazole Sodium 40 mg 02/11/22 09:00 02/14/22 08:56 Pantoprazole 40 Mg Tablet PO 03/13/22 08:59 40 mg DAILY PETER Administration Tamsulosin HCl 0.4 mg 02/12/22 21:00 02/14/22 20:42 Tamsulosin Hcl 0.4 Mg
[2022-02-15 06:22] LABS: Alanine Aminotransferase 11 U/L (6-50); Albumin Level 3.4 g/dL (3.5-5.1); Alkaline Phosphatase 91 U/L (38-126); Anion Gap 9 mmol/L (8-16); Aspartate Amino Transferase 19 U/L (17-59); Bilirubin,Total 0.5 mg/dL (0.2-1.3); Blood Urea Nitrogen 10 mg/dL (9-20); Calcium 8.6 mg/dL (8.4-10.2); Carbon Dioxide 29 mmol/L (22-30); Chloride 92 mmol/L (98-107); Estimated CRCL calculation 69 ml/min; Estimated Glomerular Filt Rate > 60; Glucose 139 mg/dL (65-110); Potassium 3.7 mmol/L (3.4-5.0); Sodium 130 mmol/L (137-145)
--- NOTE | 2022-02-15 09:00 | PM.IMPN ---
Progress Note: A&P Assessment and Plan (1) Chest pain: Code(s): R07.9 - Chest pain, unspecified Status: Acute Assessment and Plan: Resolved Monitor vital signs, I&Os, chest pain, shortness of breath and patient is a fall risk Monitor PTT, serial troponins, Serum electrolytes, and cbc Keep potassium >4 and keep magnesium >2 Monitor for bloody bowel movements,chest pain,SOB or dizziness/lightheadedness patient is currently on niacin, lisinopril, atorvastatin and hold aspirin due to hematuria (2) HTN (hypertension): Code(s): I10 - Essential (primary) hypertension Status: Acute Assessment and Plan: resume home medications (3) Gastro-esophageal reflux disease without esophagitis: Code(s): K21.9 - Gastro-esophageal reflux disease without esophagitis Status: Acute Assessment and Plan: resume home medications (4) Diabetes mellitus type 2 in nonobese: Code(s): E11.9 - Type 2 diabetes mellitus without complications Status: Acute Assessment and Plan: Insulin Lispro sliding scale, Accu-checks qAc and HS and Hold oral hypoglycemics Patient received IV contrast, hold metformin 48 hours (5) Hyponatremia: Code(s): E87.1 - Hypo-osmolality and hyponatremia Status: Acute Assessment and Plan: Current sodium 130 Patient's sodium upon admission was 127. However he did receive 2 L of IV fluids in the emergency department. Initiated 1000 cc fluid restriction diet. add NS x1. Neuro status checks. Accurate I&Os. Amriee catheter in place. WNL urine osmolality and random urine sodium. Monitor serum electrolytes (6) Urinary tract infection: Code(s): N39.0 - Urinary tract infection, site not specified Status: Acute Assessment and Plan: patient's urinalysis upon admission was relatively normal. However repeat urinalysis during his hospitalization revealed a possible urinary tract infection with significant hematuria. Patient did complain of abdominal pain therefore CT of the abdomen and pelvis was performed which revealed bladder distension therefore Mariee catheter was placed. Patient was noted to significant hematuria. therefore Urology was consulted, appreciate assistance and recommendations. per urology notes the patient was started on Flomax and plan to perform a voiding trial either on Tuesday morning or Tuesday morning depending on if the hematuria resolved hold anticoagulation CBC, CMP, UA, reviewed Follow temp curve, cultures, WBC, and VS Ceftriaxone 1g IV daily (7) Hematuria: Code(s): R31.9 - Hematuria, unspecified Status: Acute Assessment and Plan: 2/ above (8) Acute metabolic encephalopathy: Code(s): G93.41 - Metabolic encephalopathy Status: Acute Assessment and Plan: Seems resolved Possibly related to hyponatremia. Sodium level 125 this morning. He did receive 2 L of IV fluid in the emergency department upon admission this may contributed to his hyponatremia. (9) Urinary retention due to benign prostatic hyperplasia: Code(s): N40.1 - Benign prostatic hyperplasia with lower urinary tract symptoms; R33.8 - Other retention of urine Status: Acute Assessment and Plan: Urinary catheter reinserted Will need to follow up with urology for another voiding trial Plan 65 minutes for patient and family education 15 minutes for difficult mariee insertion, using an 18F coude catheter, sterile technique was used with RN present Time Spent With Patient Time with patient: Greater than 35 minutes Subjective Date/time seen: 02/15/22899 Interval history: 02/15/22899 Patient seems to be doing well. Urinary catheter was removed and patient reported that he has urinated. He also stated that he is feeling better. He is ready to go. However, it was noted that he was placed on thickened liquids for aspiration. He denies any sergo
[2022-02-15] MEDS: MULTIVITAMINS THERAPEUTIC TAB (*BKC) 1 TABLET PO (09:21)
[2022-02-15] MEDS: lisinopriL 10 MG TABLET PO (09:21)
[2022-02-15] MEDS: LORATADINE 10 MG TABLET PO (09:21)
[2022-02-15] MEDS: PANTOPRAZOLE 40 MG TABLET PO (09:21)
[2022-02-15] MEDS: hydroCHLOROthiazide 25 MG TABLET PO (09:21)
[2022-02-15] MEDS: amLODIPine BESYLATE 5 MG TABLET PO (09:21)
[2022-02-15] MEDS: FERROUS SULFATE 324 MG TABLET PO (09:22)
[2022-02-15] MEDS: FLUTICASONE PROPIONATE 0.05% NA SPR 16 GM BTL (*BKC) 1 SPRAY NASAL ×2 (09:22→17:40)
--- NOTE | 2022-02-15 10:30 | PM.DS ---
DS: Admitting Diagnosis Discharge Date 02/16/22 1030 Admitting Diagnosis UTI, BPH, Hyponatremia DS: Discharge Diagnosis Discharge Diagnosis (1) Chest pain: Code(s): R07.9 - Chest pain, unspecified Status: Acute Assessment and Plan: Resolved Monitor vital signs, I&Os, chest pain, shortness of breath and patient is a fall risk Monitor PTT, serial troponins, Serum electrolytes, and cbc Keep potassium >4 and keep magnesium >2 Monitor for bloody bowel movements,chest pain,SOB or dizziness/lightheadedness patient is currently on niacin, lisinopril, atorvastatin and hold aspirin due to hematuria (2) HTN (hypertension): Code(s): I10 - Essential (primary) hypertension Status: Acute Assessment and Plan: Current BP is 129/68 resume home medications Trend BP (3) Gastro-esophageal reflux disease without esophagitis: Code(s): K21.9 - Gastro-esophageal reflux disease without esophagitis Status: Acute Assessment and Plan: resume home medications (4) Diabetes mellitus type 2 in nonobese: Code(s): E11.9 - Type 2 diabetes mellitus without complications Status: Acute Assessment and Plan: Current glucose is 143 Insulin Lispro sliding scale, Accu-checks qAc and HS and Hold oral hypoglycemics Patient received IV contrast, hold metformin 48 hours (5) Hyponatremia: Code(s): E87.1 - Hypo-osmolality and hyponatremia Status: Acute Assessment and Plan: Current sodium 131 Patient's sodium upon admission was 127. However he did receive 2 L of IV fluids in the emergency department. Initiated 1000 cc fluid restriction diet. add NS x1. Neuro status checks. Accurate I&Os. Ahumada catheter in place. WNL urine osmolality and random urine sodium. Monitor serum electrolytes. (6) Urinary tract infection: Code(s): N39.0 - Urinary tract infection, site not specified Status: Acute Assessment and Plan: patient's urinalysis upon admission was relatively normal. However repeat urinalysis during his hospitalization revealed a possible urinary tract infection with significant hematuria. Patient did complain of abdominal pain therefore CT of the abdomen and pelvis was performed which revealed bladder distension therefore Ahumada catheter was placed. Patient was noted to significant hematuria. therefore Urology was consulted, appreciate assistance and recommendations. per urology notes the patient was started on Flomax and plan to perform a voiding trial either on Tuesday morning or Tuesday morning depending on if the hematuria resolved hold anticoagulation CBC, CMP, UA, reviewed Follow temp curve, cultures, WBC, and VS Ceftriaxone 1g IV daily Continue oral therapy 4 additional days (7) Hematuria: Code(s): R31.9 - Hematuria, unspecified Status: Acute Assessment and Plan: 2/ above (8) Acute metabolic encephalopathy: Code(s): G93.41 - Metabolic encephalopathy Status: Acute Assessment and Plan: Seems resolved Possibly related to hyponatremia. Sodium level 125 this morning. He did receive 2 L of IV fluid in the emergency department upon admission this may contributed to his hyponatremia. (9) Urinary retention due to benign prostatic hyperplasia: Code(s): N40.1 - Benign prostatic hyperplasia with lower urinary tract symptoms; R33.8 - Other retention of urine Status: Acute Assessment and Plan: Urinary catheter reinserted Will need to follow up with urology for another voiding trial DS: Summary Hospital Course Hospital Course: Patient 81-year-old male with a past medical history of hypertension, diabetes, GERD who presented to the ED with chest pain and epigastric pain that started at 10:00 p.m. the day of admission. Upon arrival patient was noted to have some white blood cell count of 8.7 a sodium of 127 p
[2022-02-15 13:36] LABS: Osmolality, Urine 257 mOsm/kg (50-1200)
[2022-02-15] MEDS: TAMSULOSIN HCL 0.4 MG CAPSULE PO (20:12)
[2022-02-15] MEDS: ATORVASTATIN 10 MG TABLET PO (20:12)
[2022-02-15] MEDS: NIACIN SA 500 MG TABLET PO (20:12)
[2022-02-16] VITALS: PULSE 71
[2022-02-16 04:00] VITALS: PULSE 94
[2022-02-16 05:30] VITALS: BP 129/68; PULSE 79; RESP 16; TEMP 36.2; O2SAT 96
[2022-02-16 05:44] LABS: Basophils Absolute Auto 0.1 K/mm3 (0.0-0.1); Basophils Percent Auto 0.5 % (0.2-1.2); Eosinophils Absolute Auto 0.1 K/mm3 (0-0.3); Eosinophils Percent Auto 1.5 % (0-4.4); Hematocrit 34.6 % (42.0-52.0); Hemoglobin 11.6 g/dL (14.0-18.0); Immature Granulocyte Absolute 0.04 K/mm3 (0.00-0.031); Immature Granulocyte Percent A 0.4 % (0-0.5); Lymphocytes Absolute Auto 0.94 K/mm3 (0.9-3.2); Lymphocytes Percent Auto 10.1 % (18.3-44.2); Mean Corpuscular HGB Conc 33.5 g/dl (32-36); Mean Corpuscular Hemoglobin 29.2 pg (26-34); Mean Corpuscular Volume 87.2 fl (80-100); Monocytes Absolute Auto 0.6 K/mm3 (0.1-0.6); Monocytes Percent Auto 6.2 % (2.6-8.5); Neutrophils Absolute Auto 7.6 K/mm3 (1.3-6.7); Neutrophils Percent Auto 81.3 % (45.5-73.1); Platelet Count Result 322 k/mm3 (150-375); Red Blood Count 3.97 M/mm3 (4.6-6.20); Red Cell Distribution Width 12.8 % (11.5-14.5); White Blood Count 9.3 K/mm3 (4.5-10.0)
[2022-02-16 06:04] LABS: Alanine Aminotransferase 13 U/L (6-50); Albumin Level 3.8 g/dL (3.5-5.1); Alkaline Phosphatase 100 U/L (38-126); Anion Gap 11 mmol/L (8-16); Aspartate Amino Transferase 25 U/L (17-59); Bilirubin,Total 0.5 mg/dL (0.2-1.3); Blood Urea Nitrogen 11 mg/dL (9-20); Calcium 8.9 mg/dL (8.4-10.2); Carbon Dioxide 31 mmol/L (22-30); Chloride 89 mmol/L (98-107); Estimated CRCL calculation 69 ml/min; Estimated Glomerular Filt Rate > 60; Glucose 143 mg/dL (65-110); Potassium 3.6 mmol/L (3.4-5.0); Sodium 131 mmol/L (137-145)
[2022-02-16 08:00] VITALS: PULSE 69
[2022-02-16] MEDS: FERROUS SULFATE 324 MG TABLET PO (08:09)
[2022-02-16] MEDS: FLUTICASONE PROPIONATE 0.05% NA SPR 16 GM BTL (*BKC) 1 SPRAY NASAL (08:09)
[2022-02-16] MEDS: amLODIPine BESYLATE 5 MG TABLET PO (08:09)
[2022-02-16] MEDS: PANTOPRAZOLE 40 MG TABLET PO (08:10)
[2022-02-16] MEDS: MULTIVITAMINS THERAPEUTIC TAB (*BKC) 1 TABLET PO (08:10)
[2022-02-16] MEDS: lisinopriL 10 MG TABLET PO (08:10)
[2022-02-16] MEDS: hydroCHLOROthiazide 25 MG TABLET PO (08:10)
[2022-02-16] MEDS: LORATADINE 10 MG TABLET PO (08:10)
[2022-02-16 14:00] VITALS: BP 154/71; PULSE 73; RESP 18; TEMP 36; O2SAT 99
== END 2022-02-16 15:05 | disposition home health service (06) | DRG 640 ==
LOC: ANHED 02-11 04:29 → ANH3MEDSUR 02-11 05:52
PROVIDERS: Internal Medicine Hematology & Oncology; Nurse Practitioner Family; Admitting Provider Internal Medicine; Emergency Provider Emergency Medicine; PCP Family Medicine; Visit Provider Nurse Practitioner
DX: E87.1 Hypo-osmolality and hyponatremia (principal); G93.41 Metabolic encephalopathy; I50.32 Chronic diastolic (congestive) heart failure; N39.0 Urinary tract infection, site not specified; S37.39XA Other injury of urethra, initial encounter; X58.XXXA Exposure to other specified factors, initial encounter; R31.0 Gross hematuria; R33.8 Other retention of urine; R07.9 Chest pain, unspecified; Z20.822 Contact with and (suspected) exposure to COVID-19; D17.71 Benign lipomatous neoplasm of kidney; D64.9 Anemia, unspecified; E11.43 Type 2 diabetes mellitus with diabetic autonomic (poly)neuropathy; E78.5 Hyperlipidemia, unspecified; E11.51 Type 2 diabetes mellitus with diabetic peripheral angiopathy without gangrene; I11.0 Hypertensive heart disease with heart failure; I71.2 Thoracic aortic aneurysm, without rupture; K59.00 Constipation, unspecified; K21.9 Gastro-esophageal reflux disease without esophagitis; M19.90 Unspecified osteoarthritis, unspecified site; N40.1 Benign prostatic hyperplasia with lower urinary tract symptoms; N32.89 Other specified disorders of bladder; N28.1 Cyst of kidney, acquired; R13.10 Dysphagia, unspecified; Z90.49 Acquired absence of other specified parts of digestive tract; Z79.82 Long term (current) use of aspirin; Z87.891 Personal history of nicotine dependence; Z91.81 History of falling; Z79.84 Long term (current) use of oral hypoglycemic drugs; T83.021A Displacement of indwelling urethral catheter, initial encounter
CPT/HCPCS: 36415; 36600; 71046; 71275; 74018; 74176; 74183; 80048; 80053; 81001; 82570; 82607; 82728; 82746; 82805; 83540; 83550; 83690; 83735; 83880; 83935; 84156; 84166; 84300; 84443; 84484; 85025; 85027; 85380; 85610; 85730; 87086; 92526; 92611; 93005; 96361; 96365; 99285; A9270; A9577; C9803; G0378; J0696; J2060; J3480; J7030; J7040; Q9967; U0003; U0005

== ENCOUNTER 2022-02-21 07:07 | Emergency (ER) | payer MEDICARE, SELFPAY ==
--- NOTE | ~2022-02-21 | CT_ITS ---
EXAMINATION: CT brain wo con DATE: 02/21/2022 07:46 INDICATION: Altered mental status. TECHNIQUE: Computed tomography (CT) of the head was performed without intravenous contrast. The mA wa s adjusted according to patient size. Iterative reconstruction technique was employed. The dose-lengt h product was 605.33 mGy-cm. COMPARISON: None FINDINGS: There are scattered areas of low attenuation in the cerebral white matter. There is no intr acranial hemorrhage, acute infarction, or abnormal intracranial mass lesion. The ventricles are paul l in size. There is mild mucosal thickening in the paranasal sinuses. The mastoid air cells are paul l. IMPRESSION: 1. Moderate nonspecific cerebral white matter disease, which likely represents chronic small vessel i schemic disease. Reviewed, dictated and finalized at location A. IMPRESSION: 1. Moderate nonspecific cerebral white matter disease, which likely represents chronic small vessel ischemic disease.
--- NOTE | ~2022-02-21 | XR_ITS ---
EXAMINATION: XR chest 1V portable DATE: 02/21/2022 08:03 INDICATION: Altered mental status. TECHNIQUE: A single frontal view of the chest was obtained. COMPARISON: Chest 2 views 02/10/2022, chest CT 02/11/2022 FINDINGS: The chest demonstrates clear lungs without pneumonia, pleural effusion, or pneumothorax. Th e heart size is normal. There is an old healed fracture of proximal right humerus. IMPRESSION: 1. No acute cardiopulmonary disease. Reviewed, dictated and finalized at location A.
[2022-02-21 07:14] VITALS: BP 140/87; PULSE 82; RESP 16; TEMP 36.3; O2SAT 97
--- NOTE | 2022-02-21 07:23 | ED.GENADULT ---
HPI - General Adult General Chief complaint: Unspecified Stated complaint: hallucinations, UTI Time Seen by Provider: 02/21/22 07:12 Source: RN notes reviewed History of Present Illness HPI narrative: Patient presents emergency department from home for has been change in mental status. Patient states he went to lay down in bed last night and his brain clicked on he states that his mind was racing with thoughts that he was unable to sleep. He denies having any visual or auditory hallucinations he states that he just could not sleep because he just kept thinking about different things and could not rest he denies having any headaches he denies any numbness or tingling in extremities he denies any vision changes. Denies any chest pain shortness of breath abdominal pain nausea vomiting. Patient states he was recently mid to the hospital and had urinary retention and still has a Ahumada in place states he was on antibiotics for UTI with last antibiotics Related Data Home Medications Medication Instructions Recorded Confirmed cetirizine 10 mg tablet (Zyrtec) 10 mg PO DAILY 07/04/19 02/11/22 multivitamin (Multiple Vitamins 1 tablet PO DAILY 02/29/20 02/11/22 tablet) niacin 500 mg tablet,extended 500 mg PO HS 02/29/20 02/11/22 release (Slo-Niacin) aspirin 81 mg chewable tablet 81 mg PO DAILY 08/05/21 02/11/22 omeprazole 20 mg capsule,delayed 20 mg PO DAILY 08/05/21 02/11/22 release amlodipine 5 mg-benazepril 10 mg 1 cap PO DAILY 02/11/22 02/11/22 capsule ferrous sulfate 325 mg (65 mg 65 mg PO DAILY 02/11/22 02/11/22 iron) tablet (Iron (ferrous sulfate)) Allergies Allergy/AdvReac Type Severity Reaction Status Date / Time neomycin Allergy Mild Rash Verified 02/21/22 08:26 Sulfa (Sulfonamide AdvReac Intermediate Nausea Verified 02/21/22 08:26 Antibiotics) Review of Systems Review of Systems: Gen.: Denies fevers or chills ENT: Denies congestion Respiratory: Denies shortness of breath or cough CV: Denies chest pain or palpitations GI: Denies abdominal pain nausea, emesis or diarrhea has current Ahumada catheter Musculoskeletal: Denies back or joint pain Neuro: See HPI Skin: Denies rash Except as documented, all other systems reviewed and negative PMFSH Past Medical History Medical History Aftercare following surgery of the musculoskeletal system Arterial vascular disease Arthritis Diabetes mellitus with autonomic neuropathy Essential (primary) hypertension Fracture of ankle with nonunion HTN (hypertension) Mixed hyperlipidemia Peripheral autonomic neuropathy due to diabetes mellitus Retained orthopedic hardware Seasonal allergies Traumatic arthritis of right ankle Trimalleolar fracture Type 2 diabetes mellitus without complications Urinary frequency Vision abnormalities Wears glasses Surgical History Surgical History Hx of cholecystectomy Family History Family History Father Diabetes mellitus Hypertension Acute myocardial infarction Cerebrovascular accident Mother Family history of malignant neoplasm Other Breast cancer Social History Social History Smoking status: Former smoker Alcohol intake: never Alcohol use details: FEW DRINKS/YEAR Substance use: never Substance use type: does not use Gender identity (if verbalized by the patient): Male Spiritual care concerns: No Exam Narrative: APPEARANCE: No acute distress, nontoxic, resting in bed EYES: EOMI, PERRL HEENT: Normocephalic, atraumatic, OMM RESPIRATORY: No respiratory distress Clear to auscultation bilaterally with no rhonchi wheezing or rales. CARDIOVASCULAR: Regular rate and rhythm without murmurs rubs or gallops. ABDOMINAL: Soft, nontender, nondistended, no rebound or guarding MUSCULO
--- NOTE | 2022-02-21 07:32 | PC.NURSE ---
Pt to CT scan via stretcher at this time.
[2022-02-21 07:38] LABS: Basophils Percent Auto 0.2 % (0.2-1.2); Eosinophils Absolute Auto 0.1 K/mm3 (0-0.3); Eosinophils Percent Auto 0.5 % (0-4.4); Hematocrit 31.1 % (42.0-52.0); Hemoglobin 10.8 g/dL (14.0-18.0); Immature Granulocyte Absolute 0.04 K/mm3 (0.00-0.031); Immature Granulocyte Percent A 0.4 % (0-0.5); Mean Corpuscular HGB Conc 34.7 g/dl (32-36); Mean Corpuscular Hemoglobin 29.3 pg (26-34); Mean Corpuscular Volume 84.3 fl (80-100); Mean Platelet Volume 8.3 fl (7.4-10.4); Monocytes Absolute Auto 0.4 K/mm3 (0.1-0.6); Monocytes Percent Auto 3.7 % (2.6-8.5); Neutrophils Absolute Auto 9.2 K/mm3 (1.3-6.7); Neutrophils Percent Auto 92.2 % (45.5-73.1); Platelet Count Result 319 k/mm3 (150-375); Red Blood Count 3.69 M/mm3 (4.6-6.20); Red Cell Distribution Width 12.5 % (11.5-14.5)
[2022-02-21 07:40] LABS: Appearance Urine Clear (Clear); Bilirubin Urine Negative (Negative); Blood Urine 3+ (Negative); Color Urine Yellow (Yellow); Glucose Urine UA Negative (Negative); Ketones Urine Negative (Negative); Leukocyte Esterase Ur Trace LEU/UL (Negative); Nitrate Urine Negative (Negative); Protein Urine 2+ mg/dL (Negative); Specific Grav Ur 1.015 (1.001-1.035); pH Urine 8.5 (5.0-9.0)
[2022-02-21 07:50] LABS: Alanine Aminotransferase 15 U/L (6-50); Albumin Level 3.7 g/dL (3.5-5.1); Alkaline Phosphatase 112 U/L (38-126); Anion Gap 13 mmol/L (8-16); Aspartate Amino Transferase 22 U/L (17-59); Bilirubin,Total 0.6 mg/dL (0.2-1.3); Blood Urea Nitrogen 11 mg/dL (9-20); Calcium 7.9 mg/dL (8.4-10.2); Carbon Dioxide 28 mmol/L (22-30); Chloride 87 mmol/L (98-107); Estimated CRCL calculation 83 ml/min; Estimated Glomerular Filt Rate > 60; Glucose 149 mg/dL (65-110); Magnesium 1.4 mg/dL (1.6-2.3); Potassium 3.9 mmol/L (3.4-5.0); Prothrombin Time 12.5 Seconds (11.1-14.7); Sodium 128 mmol/L (137-145)
[2022-02-21 07:51] LABS: Partial Thromboplastin Time 27.9 SECONDS (22.3-36.8)
[2022-02-21 08:07] LABS: Add Urine Microscopic? YES
[2022-02-21] MEDS: MAGNESIUM SULF 2 GM/WATER 50ML 2 GM/50 ML BAG IVPB (08:08)
[2022-02-21 08:10] VITALS: BP 120/52; PULSE 79; PULSE 80; RESP 18; O2SAT 99
[2022-02-21 08:10] LABS: Bacteria Urine 1+ /hpf; Mucus Urine Few /lpf; RBC Urine 21-50 /hpf (0-2); Squamous Epithelial Cell Urine Rare /hpf (Few); WBC Clumps Urine Present /hpf; WBC Urine 16-20 /hpf (0-3)
[2022-02-21 08:50] VITALS: BP 105/60; PULSE 77; RESP 15; O2SAT 97
[2022-02-21 09:38] VITALS: BP 108/55; PULSE 75; RESP 15; O2SAT 100
[2022-02-21] MEDS: CEFDINIR 300 MG CAPSULE PO (09:38)
== END 2022-02-21 09:49 | disposition home or self-care (01) ==
PROVIDERS: Emergency Provider Emergency Medicine; PCP Family Medicine
DX: N39.0 Urinary tract infection, site not specified (principal); F41.9 Anxiety disorder, unspecified; I10 Essential (primary) hypertension; E11.43 Type 2 diabetes mellitus with diabetic autonomic (poly)neuropathy; E78.2 Mixed hyperlipidemia; I77.9 Disorder of arteries and arterioles, unspecified; M19.90 Unspecified osteoarthritis, unspecified site; Z87.891 Personal history of nicotine dependence; Z79.84 Long term (current) use of oral hypoglycemic drugs; Z79.82 Long term (current) use of aspirin; R90.82 White matter disease, unspecified
CPT/HCPCS: 36415; 70450; 71045; 80053; 81001; 83735; 85025; 85610; 85730; 87086; 87088; 96365; 99284; A9270; J3475

== ENCOUNTER 2022-02-24 08:04 | Outpatient (CLI) | payer MEDICARE, SELFPAY ==
[2022-02-24 08:48] LABS: Alanine Aminotransferase 16 U/L (6-50); Albumin Level 3.7 g/dL (3.5-5.1); Alkaline Phosphatase 130 U/L (38-126); Anion Gap 11 mmol/L (8-16); Aspartate Amino Transferase 27 U/L (17-59); Bilirubin,Total 0.8 mg/dL (0.2-1.3); Blood Urea Nitrogen 13 mg/dL (9-20); Calcium 8.6 mg/dL (8.4-10.2); Carbon Dioxide 25 mmol/L (22-30); Chloride 91 mmol/L (98-107); Estimated Glomerular Filt Rate > 60; Glucose 149 mg/dL (65-110); Sodium 127 mmol/L (137-145)
== END 2022-02-24 08:05 | disposition home or self-care (01) ==
PROVIDERS: PCP Family Medicine; Visit Provider Nurse Practitioner
DX: E87.1 Hypo-osmolality and hyponatremia (principal)
CPT/HCPCS: 36415; 80053

== ENCOUNTER 2022-03-13 21:36 | Inpatient (IN) | payer MEDICARE, SELFPAY ==
--- NOTE | ~2022-03-13 | CT_ITS ---
EXAMINATION: CT abdomen pelvis w con DATE: 03/14/2022 01:43 INDICATION: Hematuria. TECHNIQUE: Computed tomography (CT) of the abdomen and pelvis was performed with 100 cc Omnipaque 350 intravenous contrast. The dose-length product was 484.83 mGy-cm. Automated exposure control and iter ative reconstruction technique were employed. COMPARISON: CT dated 02/11/2022. FINDINGS: Bibasilar dependent atelectasis. Heart size upper normal. No significant pleural or pericar dial effusion. Status post cholecystectomy. The liver, spleen, pancreas, adrenal glands and right kid aura are unremarkable. There is intermediate dense right renal mass measuring 1.7 x 1.0 cm. Severely a n enlarged prostate gland. There is a Ahumada catheter present. There is diffuse wall thickening of the bladder. No significant vascular abnormality. No lymphadenopathy. Nonobstructive bowel gas pattern. No free air or free fluid. Moderate lumbar spondylosis with grade 1 spondylolisthesis at L4-5. IMPRESSION: 1. Intermediate density right renal mass measuring up to 1.7 cm. Correlation with MRI with contrast r ecommended. 2: Bladder wall thickening which may be due to outlet obstruction from severely enlarged prostate gla nd and/or cystitis. Reviewed, dictated and finalized at location A. IMPRESSION: 1. Intermediate density right renal mass measuring up to 1.7 cm. Correlation wi MRI with contrast recommended. 2: Bladder wall thickening which may be due to outlet obstruction from severely enlarged prostate gland and/or cystitis.
[2022-03-13 21:43] VITALS: BP 149/97; PULSE 82; RESP 17; TEMP 36.2; O2SAT 98
[2022-03-14] VITALS (34 sets, daily range): BP systolic 108–156; BP diastolic 52–84; PULSE 60–79; RESP 11–22; TEMP 36.3–36.8; O2SAT 94–100; BMI 24.2
--- NOTE | 2022-03-14 00:21 | ED.MALEGU ---
HPI - Male Genitourinary General Chief complaint: Urogenital-Male Stated complaint: hematuria Time Seen by Provider: 03/14/22 00:16 Source: patient and family Mode of arrival: ambulatory Limitations: no limitations History of Present Illness HPI Narrative: This is a 81 year old male that presents to the ER for hematuria. Reports he has had blood in his his Ahumada catheter all day. He currently has a Ahumada catheter due to urinary retention associated with BPH. His urologist is Dr. Siegel. He is not on any blood thinners. Denies fever or abdominal pain. Related Data Home Medications Medication Instructions Recorded Confirmed cetirizine 10 mg tablet (Zyrtec) 10 mg PO DAILY 07/04/19 02/11/22 multivitamin (Multiple Vitamins 1 tablet PO DAILY 02/29/20 02/11/22 tablet) niacin 500 mg tablet,extended 500 mg PO HS 02/29/20 02/11/22 release (Slo-Niacin) aspirin 81 mg chewable tablet 81 mg PO DAILY 08/05/21 02/11/22 omeprazole 20 mg capsule,delayed 20 mg PO DAILY 08/05/21 02/11/22 release amlodipine 5 mg-benazepril 10 mg 1 cap PO DAILY 02/11/22 02/11/22 capsule ferrous sulfate 325 mg (65 mg 65 mg PO DAILY 02/11/22 02/11/22 iron) tablet (Iron (ferrous sulfate)) finasteride 5 mg tablet 5 mg PO DAILY 02/26/22 Allergies Allergy/AdvReac Type Severity Reaction Status Date / Time neomycin Allergy Mild Rash Verified 03/13/22 21:46 Sulfa (Sulfonamide AdvReac Intermediate Nausea Verified 03/13/22 21:46 Antibiotics) Review of Systems Review of Systems: CONSTITUTIONAL: Denies fever GASTROINTESTINAL: Denies abdominal pain, nausea, vomiting GENITOURINARY: Reports hematuria. All systems reviewed & are unremarkable except as noted in HPI and below PMFSH Past Medical History Medical History Aftercare following surgery of the musculoskeletal system Arterial vascular disease Arthritis Diabetes mellitus with autonomic neuropathy Essential (primary) hypertension Fracture of ankle with nonunion HTN (hypertension) Mixed hyperlipidemia Peripheral autonomic neuropathy due to diabetes mellitus Retained orthopedic hardware Seasonal allergies Traumatic arthritis of right ankle Trimalleolar fracture Type 2 diabetes mellitus without complications Urinary frequency Vision abnormalities Wears glasses Surgical History Surgical History Hx of cholecystectomy Family History Family History Father Diabetes mellitus Hypertension Acute myocardial infarction Cerebrovascular accident Mother Family history of malignant neoplasm Other Breast cancer Social History Social History Smoking status: Former smoker Alcohol intake: never Alcohol use details: FEW DRINKS/YEAR Substance use: never Substance use type: does not use Gender identity (if verbalized by the patient): Male Spiritual care concerns: No Exam Narrative: GENERAL: Well-appearing, well-nourished, and in no acute distress. HEAD: Normocephalic, atraumatic. EYES: EOMI. CHEST: Clear to auscultation. No respiratory distress. No wheezes rales or rhonchi HEART: Regular rate and rhythm. No murmur heard. Normal peripheral pulses. ABDOMEN: Soft, nontender, nondistended, normal active bowel sounds. EXTREMITIES: Normal range of motion. No edema. SKIN: Warm, dry, no rash. NEURO: No focal deficits. Alert and oriented x3. PSYCH: Normal mood and affect Course Consultations Consultation #1: Spoke with hospitalist about patient and work-up who accepts admission. Date: 03/14/22 Vital Signs Vital signs: Vital Signs Temperature 97.1 F L 03/13/22 21:43 Pulse Rate 82 03/13/22 21:43 Respiratory Rate 17 03/13/22 21:43 Blood Pressure 149/97 H 03/13/22 21:43 Pulse Oximetry 98 03/13/22 21:43 Oxygen Delivery R
[2022-03-14 00:49] LABS: Basophils Percent Auto 0.6 % (0.2-1.2); Eosinophils Absolute Auto 0.2 K/mm3 (0-0.3); Eosinophils Percent Auto 2.1 % (0-4.4); Hematocrit 33.7 % (42.0-52.0); Hemoglobin 10.9 g/dL (14.0-18.0); Immature Granulocyte Absolute 0.03 K/mm3 (0.00-0.031); Immature Granulocyte Percent A 0.4 % (0-0.5); Lymphocytes Absolute Auto 0.97 K/mm3 (0.9-3.2); Lymphocytes Percent Auto 13.6 % (18.3-44.2); Mean Corpuscular HGB Conc 32.3 g/dl (32-36); Mean Corpuscular Hemoglobin 28.8 pg (26-34); Mean Corpuscular Volume 88.9 fl (80-100); Mean Platelet Volume 8.8 fl (7.4-10.4); Monocytes Absolute Auto 0.4 K/mm3 (0.1-0.6); Neutrophils Absolute Auto 5.5 K/mm3 (1.3-6.7); Neutrophils Percent Auto 77.3 % (45.5-73.1); Platelet Count Result 276 k/mm3 (150-375); Red Blood Count 3.79 M/mm3 (4.6-6.20); Red Cell Distribution Width 13.2 % (11.5-14.5); White Blood Count 7.2 K/mm3 (4.5-10.0)
[2022-03-14 01:00] LABS: INR 1.1; Prothrombin Time 13.3 Seconds (11.1-14.7)
[2022-03-14 01:01] LABS: Add Urine Microscopic? YES; Appearance Urine Clear (Clear); Bilirubin Urine 3+ (Negative); Blood Urine 3+ (Negative); Color Urine Red (Yellow); Glucose Urine UA Trace mg/dL (Negative); Ketones Urine 2+ mg/dL (Negative); Leukocyte Esterase Ur 3+ LEU/UL (Negative); Nitrate Urine Positive (Negative); Partial Thromboplastin Time 26.5 SECONDS (22.3-36.8); Protein Urine 3+ mg/dL (Negative); pH Urine 8.5 (5.0-9.0)
[2022-03-14 01:05] LABS: Alanine Aminotransferase 16 U/L (6-50); Albumin Level 3.7 g/dL (3.5-5.1); Alkaline Phosphatase 96 U/L (38-126); Anion Gap 10 mmol/L (8-16); Aspartate Amino Transferase 22 U/L (17-59); Bilirubin,Total 0.4 mg/dL (0.2-1.3); Blood Urea Nitrogen 11 mg/dL (9-20); Calcium 8.1 mg/dL (8.4-10.2); Carbon Dioxide 30 mmol/L (22-30); Chloride 92 mmol/L (98-107); Estimated CRCL calculation 62 ml/min; Estimated Glomerular Filt Rate > 60; Glucose 124 mg/dL (65-110); Potassium 2.8 mmol/L (3.4-5.0); Sodium 132 mmol/L (137-145)
--- NOTE | 2022-03-14 01:06 | ECG_ITS ---
Measurements Intervals [place] Rate: 66 P: 32 CO: 155 QRS: -8 QRSD: 101 T: 56 QT: 431 QTc: 453 Interpretive Statements SINUS RHYTHM SUPRAVENTRICULAR TRIGEMINY EARLY PRECORDIAL R/S TRANSITION MINIMAL Q WAVES- ANTERIOR LEADS NONSPECIFIC ST & T-WAVE ABNORMALITY- ANTEROLATERAL LEADS BASELINE ARTIFACT- III, V6 ABNORMAL ECG COMPARED TO ECG 02/10/2022 23:27:37 SUPRAVENTRICULAR TRIGEMINY NOW PRESENT Electronically Signed On 03-14-2022 8:16:21 CDT by Juan Antonio Escalante D.O.
[2022-03-14 01:08] LABS: Bacteria Urine Trace /hpf; Calcium Oxalate Crystals Urine Many /hpf; RBC Urine >75 /hpf (0-2); Squamous Epithelial Cell Urine Many /hpf (Few); WBC Urine 16-20 /hpf
[2022-03-14] MEDS: POTASSIUM CHLORIDE INJ 40 MEQ in SODIUM CHLORIDE 0.9% IV 500 ML 130 MEQ IVPB (01:49)
--- NOTE | 2022-03-14 05:10 | ADMGEN ---
This patient, Meliton Delacruz, was admitted to [facility] Surg Room 310-01. Patient/family oriented to hospital policies and general routines including ID bracelet, bed and alarms, visiting hours, pain management, procedures, bathroom and other care routines, personal items, smoking policy, room service/diet, and visiting hours. Information on how to activate the Rapid Response Team has been discussed. Patient/Family are encouraged to report perceived risks to care and to ask questions if they do not understand what they are told or what they should do.
[2022-03-14 06:44] LABS: Basophils Percent Auto 0.6 % (0.2-1.2); Eosinophils Absolute Auto 0.1 K/mm3 (0-0.3); Eosinophils Percent Auto 2.1 % (0-4.4); Hematocrit 35.3 % (42.0-52.0); Hemoglobin 11.5 g/dL (14.0-18.0); Immature Granulocyte Absolute 0.02 K/mm3 (0.00-0.031); Immature Granulocyte Percent A 0.3 % (0-0.5); Lymphocytes Absolute Auto 0.78 K/mm3 (0.9-3.2); Lymphocytes Percent Auto 11.8 % (18.3-44.2); Mean Corpuscular HGB Conc 32.6 g/dl (32-36); Mean Corpuscular Volume 89.1 fl (80-100); Mean Platelet Volume 9.2 fl (7.4-10.4); Monocytes Absolute Auto 0.4 K/mm3 (0.1-0.6); Monocytes Percent Auto 6.2 % (2.6-8.5); Neutrophils Absolute Auto 5.2 K/mm3 (1.3-6.7); Platelet Count Result 304 k/mm3 (150-375); Red Blood Count 3.96 M/mm3 (4.6-6.20); Red Cell Distribution Width 13.2 % (11.5-14.5); White Blood Count 6.6 K/mm3 (4.5-10.0)
[2022-03-14 07:00] LABS: Anion Gap 11 mmol/L (8-16); Blood Urea Nitrogen 10 mg/dL (9-20); Calcium 8.3 mg/dL (8.4-10.2); Carbon Dioxide 27 mmol/L (22-30); Chloride 96 mmol/L (98-107); Estimated CRCL calculation 62 ml/min; Estimated Glomerular Filt Rate > 60; Glucose 107 mg/dL (65-110); Magnesium 1.6 mg/dL (1.6-2.3); Potassium 3.4 mmol/L (3.4-5.0); Sodium 134 mmol/L (137-145)
[2022-03-14 08:25] LABS: Glucose Point of Care 95 mg/dl (65-105)
--- NOTE | 2022-03-14 09:01 | PM.IMHP ---
H&P: HPI History of Present Illness Date/Time: 03/14/22 09:01 Chief Complaint: Hematuria Narrative: This very pleasant 81 year old male patient with significant PMH of BPH w/complication of urinary retention with indwelling mariee catheter most recently hospitalized for the same complaint in 01/2022, Angiomyolipoma of the right kidney, DM2, HTN, GERD, and anemia presented to the ER with complaints of having noticed blood in his catheter all day yesterday. His catheter has remained in since his last hospitalization from his urinary retention associated with his BPH. He has some slight abdominal discomfort, but no fevers, back pain and no N/V or flu-like symptoms. In ER, workup was performed and it was determined that the pt. has hemorrhagic Cystitis as demonstrated per labs and CT scan. He was admitted to the hospital for expert Urology evaluation as well as treatment with IVF and abx. Should the blood in the urine begin clotting, he may also need a CBI, and CT scan performed in the ER suggests that he may need Cystoscopy. At this time he has no CP, Dyspnea, N/V/D/headache, dizziness, lightheadedness. He denies any melena or any hematochezia. The patient is not on a blood thinning agent. Review of Systems Review of Systems: All systems reviewed & are unremarkable except as noted in HPI and below PMFSH Past Medical History Medical History Aftercare following surgery of the musculoskeletal system Arterial vascular disease Arthritis Diabetes mellitus with autonomic neuropathy Essential (primary) hypertension Fracture of ankle with nonunion HTN (hypertension) Mixed hyperlipidemia Peripheral autonomic neuropathy due to diabetes mellitus Retained orthopedic hardware Seasonal allergies Traumatic arthritis of right ankle Trimalleolar fracture Type 2 diabetes mellitus without complications Urinary frequency Vision abnormalities Wears glasses Surgical History Surgical History Hx of cholecystectomy Family History Family History Father Diabetes mellitus Hypertension Acute myocardial infarction Cerebrovascular accident Mother Family history of malignant neoplasm Other Breast cancer Social History Social History Smoking packs per day: 0.5 Smoking cigarettes per day: 10.0 Smoking status: Former smoker Alcohol intake: former Alcohol use details: FEW DRINKS/YEAR Substance use: never Substance use type: does not use Gender identity (if verbalized by the patient): Male Spiritual care concerns: No Meds Home Medications and Allergies Home Medications Medication Instructions Recorded Confirmed Type cetirizine 10 mg tablet (Zyrtec) 10 mg PO DAILY 07/04/19 03/14/22 History multivitamin (Multiple Vitamins 1 tablet PO DAILY 02/29/20 03/14/22 History tablet) niacin 500 mg tablet,extended 500 mg PO HS 02/29/20 03/14/22 History release (Slo-Niacin) hydrochlorothiazide 25 mg tablet 25 mg PO QAM #90 tabs 05/18/21 03/14/22 Rx aspirin 81 mg chewable tablet 81 mg PO DAILY 08/05/21 03/14/22 History omeprazole 20 mg capsule,delayed 20 mg PO DAILY 08/05/21 03/14/22 History release metformin 500 mg tablet 500 mg PO BID #180 tabs 09/18/21 03/14/22 Rx atorvastatin 10 mg tablet 10 mg PO HS #90 tabs 01/04/22 03/14/22 Rx fluticasone propionate 50 1 spray intranasal BID #16 grams 01/04/22 03/14/22 Rx mcg/actuation nasal spray,suspension (Flonase Allergy Relief) amlodipine 5 mg-benazepril 10 mg 1 cap PO DAILY 02/11/22 03/14/22 History capsule ferrous sulfate 325 mg (65 mg 65 mg PO DAILY 02/11/22 03/14/22 History iron) tablet (Iron (ferrous sulfate)) tamsulosin 0.4 mg capsule 0.4 mg PO QHS #30 caps 02/15/22 03/14/22 Rx finasteride 5 mg tablet 5 mg PO DAILY
[2022-03-14 10:56] LABS: Hemoglobin A1C 6.3 % (<5.7)
[2022-03-14] MEDS: ASPIRIN 81 MG CHEWABLE TABLET PO (11:17)
[2022-03-14] MEDS: FLUTICASONE PROPIONATE 0.05% NA SPR 16 GM BTL (*BKC) 1 SPRAY NASAL ×2 (11:17→17:35)
[2022-03-14] MEDS: MULTIVITAMINS THERAPEUTIC TAB (*BKC) 1 TABLET PO (11:18)
[2022-03-14] MEDS: LORATADINE 10 MG TABLET PO (11:18)
[2022-03-14] MEDS: FINASTERIDE 5 MG TABLET PO (11:18)
[2022-03-14] MEDS: FERROUS SULFATE 324 MG TABLET PO (11:18)
[2022-03-14] MEDS: amLODIPine BESYLATE 5 MG TABLET BY MOUTH (11:18)
[2022-03-14] MEDS: PANTOPRAZOLE 40 MG TABLET PO (11:18)
[2022-03-14] MEDS: lisinopriL 10 MG TABLET PO (11:18)
[2022-03-14] MEDS: SODIUM CHLORIDE 0.9% IV 1,000 ML 100 ML IV CONT ×2 (11:19→21:20)
[2022-03-14] MEDS: metFORMIN HCL 500 MG TABLET PO ×2 (11:19→17:36)
[2022-03-14] MEDS: hydroCHLOROthiazide 25 MG TABLET PO (11:19)
[2022-03-14 11:39] LABS: Glucose Point of Care 152 mg/dl (65-105)
--- NOTE | 2022-03-14 13:17 | WPDURCON ---
Assessment and Plan Assessment and plan (1) Acute hemorrhagic cystitis: Code(s): N30.01 - Acute cystitis with hematuria Status: Acute Assessment and Plan: treating UTI--cult pending (2) Gross hematuria: Code(s): R31.0 - Gross hematuria Status: Acute Assessment and Plan: Likely prostate source, CT reviewed and possible small clots and huge prostate consider cystoscopy while hear in hospital (3) Urinary retention due to benign prostatic hyperplasia: Code(s): N40.1 - Benign prostatic hyperplasia with lower urinary tract symptoms; R33.8 - Other retention of urine Status: Acute Assessment and Plan: will check on Urodynamic findings, check with Dr. Siegel (4) BPH loc w urin obs/LUTS: Code(s): N40.1 - Benign prostatic hyperplasia with lower urinary tract symptoms Status: Acute (5) Benign cyst of left kidney: Code(s): N28.1 - Cyst of kidney, acquired Status: Acute (6) Angiomyolipoma of right kidney: Code(s): D17.71 - Benign lipomatous neoplasm of kidney Status: Acute (7) Hematuria: Code(s): R31.9 - Hematuria, unspecified Status: Acute Assessment and Plan: CT and cysto ---discussed. (8) Urinary tract infection: Code(s): N39.0 - Urinary tract infection, site not specified Status: Acute Plan discussed with patient and his Urology Consult Note HPI Date Seen: 03/14/22 Requesting Physician: MILA Garcia Primary Care Provider: Meliton Washburn MD Consult Narrative Narrative: Meliton Delacruz is a 81 year old male admission in January with retention. Has huge prostate. CT reviewed, maybe some small clots. Treating UTI with mental status changes. Catheter with gross blood, no current clots, and draining well. Had UDStudy in office week ago. Has coude in place. Review of Systems Review of Systems: All systems reviewed & are unremarkable except as noted in HPI and below PMFSH Past Medical History Medical History Aftercare following surgery of the musculoskeletal system Arterial vascular disease Arthritis Diabetes mellitus with autonomic neuropathy Essential (primary) hypertension Fracture of ankle with nonunion HTN (hypertension) Mixed hyperlipidemia Peripheral autonomic neuropathy due to diabetes mellitus Retained orthopedic hardware Seasonal allergies Traumatic arthritis of right ankle Trimalleolar fracture Type 2 diabetes mellitus without complications Urinary frequency Vision abnormalities Wears glasses Surgical History Surgical History Hx of cholecystectomy Family History Family History Father Diabetes mellitus Hypertension Acute myocardial infarction Cerebrovascular accident Mother Family history of malignant neoplasm Other Breast cancer Social History Social History Smoking packs per day: 0.5 Smoking cigarettes per day: 10.0 Smoking status: Former smoker Alcohol intake: former Alcohol use details: FEW DRINKS/YEAR Substance use: never Substance use type: does not use Gender identity (if verbalized by the patient): Male Spiritual care concerns: No Meds Home Medications and Allergies Home Medications Medication Instructions Recorded Confirmed Type cetirizine 10 mg tablet (Zyrtec) 10 mg PO DAILY 07/04/19 03/14/22 History multivitamin (Multiple Vitamins 1 tablet PO DAILY 02/29/20 03/14/22 History tablet) niacin 500 mg tablet,extended 500 mg PO HS 02/29/20 03/14/22 History release (Slo-Niacin) hydrochlorothiazide 25 mg tablet 25 mg PO QAM #90 tabs 05/18/21 03/14/22 Rx aspirin 81 mg chewable tablet 81 mg PO DAILY 08/05/21 03/14/22 History omeprazole 20 mg capsule,delayed 2
[2022-03-14 16:47] LABS: Glucose Point of Care 111 mg/dl (65-105)
[2022-03-14 20:31] LABS: Glucose Point of Care 143 mg/dl (65-105)
[2022-03-14] MEDS: TAMSULOSIN HCL 0.4 MG CAPSULE PO (21:20)
[2022-03-14] MEDS: ATORVASTATIN 10 MG TABLET PO (21:20)
[2022-03-14] MEDS: NIACIN SA 500 MG TABLET PO (21:20)
--- NOTE | 2022-03-14 23:45 | PC.NURSE ---
Pt complains of abdominal pain 02/27, throbbing. He has nothing ordered for pain. A call has been made to Dr. Palma to get orders for pain medication. Pt is extremely unhappy, walking out into the hallway, stating, I thought this was a hospital. I assured him as soon as I receive orders from her I will follow them and be back in to him.
[2022-03-15] VITALS (12 sets, daily range): BP systolic 117–146; BP diastolic 57–84; PULSE 62–100; RESP 12–20; TEMP 36.1–37.1; O2SAT 96–100
[2022-03-15] MEDS: HYDROcodone/acetaminophen (*CRX) 7.5-325 MG TABLET 1 TAB PO (00:28)
[2022-03-15] MEDS: WATER FOR IRRIGATION, STERILE 1,000 ML BOTTLE 1000 ML (00:47)
--- NOTE | 2022-03-15 00:58 | PC.NURSE ---
2,000mL of bloody, clotty urine pulled by irrigation from bladder, after bladder scan showed >1271mL
[2022-03-15 06:53] LABS: Basophils Percent Auto 0.4 % (0.2-1.2); Eosinophils Absolute Auto 0.1 K/mm3 (0-0.3); Eosinophils Percent Auto 0.7 % (0-4.4); Hematocrit 34.7 % (42.0-52.0); Hemoglobin 11.1 g/dL (14.0-18.0); Immature Granulocyte Absolute 0.02 K/mm3 (0.00-0.031); Immature Granulocyte Percent A 0.3 % (0-0.5); Lymphocytes Absolute Auto 0.66 K/mm3 (0.9-3.2); Lymphocytes Percent Auto 9.1 % (18.3-44.2); Mean Corpuscular Hemoglobin 28.8 pg (26-34); Mean Corpuscular Volume 90.1 fl (80-100); Mean Platelet Volume 9.4 fl (7.4-10.4); Monocytes Absolute Auto 0.3 K/mm3 (0.1-0.6); Monocytes Percent Auto 3.7 % (2.6-8.5); Neutrophils Absolute Auto 6.2 K/mm3 (1.3-6.7); Neutrophils Percent Auto 85.8 % (45.5-73.1); Platelet Count Result 289 k/mm3 (150-375); Red Blood Count 3.85 M/mm3 (4.6-6.20); Red Cell Distribution Width 13.2 % (11.5-14.5); White Blood Count 7.3 K/mm3 (4.5-10.0)
[2022-03-15 07:02] LABS: Alanine Aminotransferase 16 U/L (6-50); Albumin Level 3.5 g/dL (3.5-5.1); Alkaline Phosphatase 103 U/L (38-126); Anion Gap 6 mmol/L (8-16); Aspartate Amino Transferase 32 U/L (17-59); Bilirubin,Total 0.5 mg/dL (0.2-1.3); Blood Urea Nitrogen 9 mg/dL (9-20); Calcium 8.1 mg/dL (8.4-10.2); Carbon Dioxide 28 mmol/L (22-30); Chloride 99 mmol/L (98-107); Estimated CRCL calculation 62 ml/min; Estimated Glomerular Filt Rate > 60; Glucose 122 mg/dL (65-110); Magnesium 1.7 mg/dL (1.6-2.3); Potassium 3.4 mmol/L (3.4-5.0); Sodium 133 mmol/L (137-145)
[2022-03-15 07:37] LABS: Glucose Point of Care 127 mg/dl (65-105)
[2022-03-15] MEDS: SODIUM CHLORIDE 0.9% IV 1,000 ML 100 ML IV CONT ×2 (08:30→21:26)
[2022-03-15] MEDS: FLUTICASONE PROPIONATE 0.05% NA SPR 16 GM BTL (*BKC) 1 SPRAY NASAL (09:34)
[2022-03-15] MEDS: FINASTERIDE 5 MG TABLET PO (09:35)
[2022-03-15] MEDS: hydroCHLOROthiazide 25 MG TABLET PO (09:35)
[2022-03-15] MEDS: metFORMIN HCL 500 MG TABLET PO ×2 (09:35→18:14)
[2022-03-15] MEDS: MULTIVITAMINS THERAPEUTIC TAB (*BKC) 1 TABLET PO (09:35)
[2022-03-15] MEDS: FERROUS SULFATE 324 MG TABLET PO (09:35)
[2022-03-15] MEDS: amLODIPine BESYLATE 5 MG TABLET BY MOUTH (09:35)
[2022-03-15] MEDS: LORATADINE 10 MG TABLET PO (09:35)
[2022-03-15] MEDS: lisinopriL 10 MG TABLET PO (09:35)
[2022-03-15] MEDS: PANTOPRAZOLE 40 MG TABLET PO (09:35)
[2022-03-15 11:33] LABS: Glucose Point of Care 163 mg/dl (65-105)
--- NOTE | 2022-03-15 11:40 | PM.IMPN ---
Progress Note: A&P Assessment and Plan (1) Acute hemorrhagic cystitis: Code(s): N30.01 - Acute cystitis with hematuria Status: Acute Assessment and Plan: - Complicated infection secondary to indwelling urinary catheter in setting of BPH. - Interval complication of clotting and inhibition of the mariee catheter. - Continue Rocephin IV - Urine and blood cultures pending - Consult Urology for further recommendations, we appreciate their recommendations (2) Acute hypokalemia: Code(s): E87.6 - Hypokalemia Status: Resolved Assessment and Plan: - Potassium in ER was low at 2.8. He received a K+ Rubio. - This AM, it is 3.4. - Will continue to monitor with daily labs. - Monitor VS and labs daily. 03/15: Potassium is stable at 3.4. (3) Anemia: Code(s): D64.9 - Anemia, unspecified Status: Acute Assessment and Plan: - Chronic in nature. - Normocytic. - There is interval increase in Hgb from 10.9-->11.5 from the time he first presented to the ER to the current time without intervention. - Stable. - Will continue to monitor with daily labs. (4) Diabetes mellitus type 2 in nonobese: Code(s): E11.9 - Type 2 diabetes mellitus without complications Status: Acute Assessment and Plan: - Accu checks AC and HS. - Diabetic diet - Continue home Metformin for now. If uptrend noted in fasting glucose levels, will discontinue Metformin and start Insulin. - A1C is 6.5. Fasting Glucose this AM is 122. Time Spent With Patient Time with patient: 15 - 25 minutes Subjective Date/time seen: 03/15/22 0850 This pt. was examined at the bedside today in interval assessment. He had a tough night with regards to having increased bleeding from the mariee catheter and the development of blood clots that was obviously blocking urine flow. Bladder scan demonstrated >1200 urine in the bladder, and there was urine leaking out around his [place] catheter with some blood as well, and patient was in a large amount of pain. His catheter was irrigated with 2500 ml of sterile saline to once again make the catheter patent and relieve the patient's discomfort. He has had huston colored urine since then. We are awaiting Urology evaluation today. He was evaluated yesterday by Dr. Dick and he advised that he was going to talk with Dr. Siegel regarding patient and review his Urodynamic testing as well, but pt. would likely need to have a scope while here. We will await their recommendations. Pt. without any discomfort at this time and he has no palpable fullness in his bladder. He has no other complaints today such as CP, dyspnea, N/V/D, headache, dizziness, lightheadedness. Review of Systems Review of Systems: All systems reviewed & are unremarkable except as noted in HPI and below Exam Const: General: comfortable and no acute distress HENMT: General nose exam: Normal nares present Mouth: Yes moist mucous membranes Eyes: General: appearance normal, both eyes and all related structures Sclera: sclerae normal Pupils: Equal, round and reactive pupils present EOM: EOMs intact bilaterally Neck: Neck: supple and no JVD Thyroid: thyroid normal Carotids: no bruits Lymphatic: lymphadenopathy not noted Chest: Other: Not tender to palpation. Resp: Effort & Inspection: normal respiratory effort Auscultation: clear to auscultation bilaterally Cardio: Rate: regular rate Rhythm: regular rhythm Heart sounds: no gallops, no murmurs and no rubs GI: Inspection: non-distended Auscultation: normal bowel sounds Urinary Catheter: Urinary Catheter: patent and draining and urine red Skin: General skin exam: normal color, no rashes or lesions noted and no erythema Lesions: no lesions noted Rashes: no rashes noted Wounds: no wounds Neuro: General: gait normal and deep tendon reflexes 2+ bilaterally Cranial nerves: Yes Equal, round and reactive pupils present Speech: normal speech Motor exam (neuro):
--- NOTE | 2022-03-15 12:05 | WPDUROPN2 ---
Progress Note: A&P Assessment and Plan (1) BPH loc w urin obs/LUTS: Code(s): N40.1 - Benign prostatic hyperplasia with lower urinary tract symptoms Status: Acute (2) Gross hematuria: Code(s): R31.0 - Gross hematuria Status: Acute Assessment and Plan: Obtain Consent: Cystoscopy, clot evacuation, possible bladder fulgeration. May also place a 3 way mariee in the OR and start CBI post procedure if needed. Keep NPO. Plan to go to the OR today with DR. Siegel. (3) Urinary retention due to benign prostatic hyperplasia: Code(s): N40.1 - Benign prostatic hyperplasia with lower urinary tract symptoms; R33.8 - Other retention of urine Status: Acute Subjective Subjective Date/Time Seen: 03/15/22 12:05 Retention and Gross Hematuria continues with catheter clogging overnight. The patient was a difficult catheterization, therefore placement of a bedside 3 way mariee may be difficult. The patient had UDS in the office one week ago and has a known severely enlarged prostate. Review of Systems Cardiovascular: Cardiovascular: Denies chest pain Gastrointestinal: Gastrointestinal: Denies abdominal pain, Denies nausea and Denies vomiting Genitourinary: Genitourinary: Reports hematuria and Denies flank pain Exam Const: General: cooperative and comfortable Resp: Effort & Inspection: normal respiratory effort Cardio: Rate: regular rate GI: GI Palp: Yes Soft to palpation and No Tenderness to palpation present (GI) : General: Yes no CVA tenderness Urinary Catheter: Urinary Catheter: patent and draining and urine red Extrem: Right lower extremity: no edema Left lower extremity: no edema Objective Data Vital Signs Vital Signs: Vital Signs - 24 hr 03/14/22 15:56 03/14/22 16:00 03/14/22 22:00 Temperature 97.4 F L 98.3 F Pulse Rate 79 64 75 Respiratory Rate 16 17 Blood Pressure 113/61 110/62 Pulse Oximetry 97 96 Oxygen Delivery 03/14/22 20:00 03/15/22 00:00 03/15/22 04:00 Temperature Pulse Rate 72 100 62 Respiratory Rate Blood Pressure Pulse Oximetry Oxygen Delivery 03/15/22 05:58 03/15/22 08:00 Temperature 97.7 F Pulse Rate 73 Respiratory Rate 16 Blood Pressure 126/71 Pulse Oximetry 99 Oxygen Delivery Room Air Intake/Output Intake/Output: Intake & Output 03/12/22 03/13/22 03/14/22 03/15/22 23:59 23:59 23:59 23:59 Intake Total 2150 1950 Output Total 2610 2260 Balance 600 -2800 Meds/Results Medications: Active Medications Generic Name Dose Route Start Last Admin Trade Name Freq PRN Reason Stop Dose Admin Acetaminophen 1,000 mg 03/15/22 00:13 Acetaminophen 500 Mg Tablet PO Q6H PRN Mild Pain (1-3) or Fever Hydrocodone Bitart/Acetaminophen 1 tab 03/15/22 00:13 03/15/22 00:28 Hydrocodone/Acetaminophen (*Crx) 7.5-325 Mg Tablet PO 1 tab Q6H PRN Administration Pain Rated 7-10 Hydrocodone Bitart/Acetaminophen 1 tab 03/15/22 00:14 Hydrocodone/Acetaminophen (*Crx) 5-325 Mg Tablet PO Q6H PRN Pain Rated 4-6 Amlodipine Besylate 5 mg 03/14/22 09:00 03/15/22 09:35 Amlodipine Besylate 5 Mg Tablet BY MOUTH 5 mg DAILY PETER Administration Aspirin 81 mg 03/14/22 09:00 03/15/22 10:46 Aspirin 81 Mg Chewable Tablet PO Not Given DAILY PETER Atorvastatin Calcium 10 mg 03/14/22 21:00 03/14/22 21:20 Atorvastatin 10 Mg Tablet PO 10 mg HS PETER Administration Ferrous Sulfate 324 mg 03/14/22 09:00 03/15/22 09:35 Ferrous Sulfate 324 Mg Tablet PO 324 mg DAILY PETER Administration Finasteride 5 mg 03/14/22 09:00 03/15/22 09:35 Finasteride 5 Mg Tablet PO 5 mg DAILY PETER Administration Fluticasone Propionate 1 spray 03/14/22 09:00 03/15/22 09:34 Fluticasone Propionate 0.05% Na Spr 16 Gm Btl (*Bkc) NASAL 1 spray BID PETER Administration Hydrochlorothiazide 25 mg 03/14/22 09:00 03/15/22 09:35 Hydrochlorothiazide 25 Mg Tablet
--- NOTE | 2022-03-15 13:43 | PC.NURSE ---
1 gm Ampicillin received at 1344 from pharmacy; scheduled to administer at 1300 by pharmacy
[2022-03-15] MEDS: AMPICILLIN 1 GM/NS 50 ML 1 GM/50 ML BAG IVPB ×2 (13:55→21:25)
[2022-03-15 15:23] LABS: Glucose Point of Care 100 mg/dl (65-105)
--- NOTE | 2022-03-15 16:25 | WPDANESEPPF ---
Anes - Initial Pre Proc Eval Procedure: Operation Date: 03/15/22 16:00 Proposed Procedures p Cystoscopy with Fulguration, Evacuation Bladder Clots - Dallas Siegel MD Date/Time: 03/15/22 16:25 Surgeon: MILA Garcia Pre Op Diagnosis: hemorrhagic cystitis, hypokalemia Patient Data Age: 81 Gender: M Height: 1.83 m Weight: 81 kg Last Vital Signs Temp 36.7 C 03/15/22 15:11 Pulse 74 03/15/22 15:11 Resp 16 03/15/22 15:11 BP 141/77 H 03/15/22 15:11 Pulse Ox 100 03/15/22 15:11 O2 Del Method Room Air 03/15/22 15:11 Allergies Allergy/AdvReac Type Severity Reaction Status Date / Time neomycin Allergy Mild Rash Verified 03/13/22 21:46 Sulfa (Sulfonamide AdvReac Intermediate Nausea Verified 03/13/22 21:46 Antibiotics) Home Medications Medication Instructions Recorded Confirmed Type cetirizine 10 mg tablet (Zyrtec) 10 mg PO DAILY 07/04/19 03/14/22 History multivitamin (Multiple Vitamins 1 tablet PO DAILY 02/29/20 03/14/22 History tablet) niacin 500 mg tablet,extended 500 mg PO HS 02/29/20 03/14/22 History release (Slo-Niacin) hydrochlorothiazide 25 mg tablet 25 mg PO QAM #90 tabs 05/18/21 03/14/22 Rx aspirin 81 mg chewable tablet 81 mg PO DAILY 08/05/21 03/14/22 History omeprazole 20 mg capsule,delayed 20 mg PO DAILY 08/05/21 03/14/22 History release metformin 500 mg tablet 500 mg PO BID #180 tabs 09/18/21 03/14/22 Rx atorvastatin 10 mg tablet 10 mg PO HS #90 tabs 01/04/22 03/14/22 Rx fluticasone propionate 50 1 spray intranasal BID #16 grams 01/04/22 03/14/22 Rx mcg/actuation nasal spray,suspension (Flonase Allergy Relief) amlodipine 5 mg-benazepril 10 mg 1 cap PO DAILY 02/11/22 03/14/22 History capsule ferrous sulfate 325 mg (65 mg 65 mg PO DAILY 02/11/22 03/14/22 History iron) tablet (Iron (ferrous sulfate)) tamsulosin 0.4 mg capsule 0.4 mg PO QHS #30 caps 02/15/22 03/14/22 Rx finasteride 5 mg tablet 5 mg PO DAILY 02/26/22 03/14/22 History Laboratory Tests 03/14/22 03/14/22 03/15/22 16:38 20:25 06:09 WBC 7.3 K/mm3 K/mm3 (4.5-10.0) RBC 3.85 M/mm3 L M/mm3 (4.6-6.20) Hgb 11.1 g/dL L g/dL (14.0-18.0) Hct 34.7 % L % (42.0-52.0) MCV 90.1 fl fl (80-100) MCH 28.8 pg pg (26-34) MCHC 32.0 g/dl g/dl (32-36) RDW 13.2 % % (11.5-14.5) Plt Count 289 k/mm3 k/mm3 (150-375) MPV 9.4 fl fl (7.4-10.4) Immature Gran % (Auto) 0.3 % % (0-0.5) Neut % (Auto) 85.8 % H % (45.5-73.1) Lymph % (Auto) 9.1 % L % (18.3-44.2) Lassen % (Auto) 3.7 % % (2.6-8.5) Eos % (Auto) 0.7 % % (0-4.4) Baso % (Auto) 0.4 % % (0.2-1.2) Lymph # (Auto) 0.66 K/mm3 L K/mm3 (0.9-3.2) Lassen # (Auto) 0.3 K/mm3 K/mm3 (0.1-0.6) Eos # (Auto) 0.1 K/mm3 K/mm3 (0-0.3) Baso # (Auto) 0.0 K/mm3 K/mm3 (0.0-0.1) Abs Immat Gran (auto) 0.02 K/mm3 K/mm3 (0.00-0.031) Absolute Neuts (auto) 6.2 K/mm3 K/mm3 (1.3-6.7) Absolute Nucleated RBC 0.0 K/mm3 K/mm3 (0.0-0.012) Nucleated RBC % 0.0 % % (0.0-0.2) Sodium Potassium Chloride Carbon Dioxide Anion Gap BUN Creatinine Estim Creat Clear Calc Estimated GFR Glucose POC Capillary Glucose 111 mg/dl H mg/dl 143 mg/dl H mg/dl (65-105) (65-105) Calcium Magnesium Total Bilirubin AST ALT Alkaline Phosphatase Total Protein Albumin 03/15/22 03/15/22 03/15/22 06:09 07:25 11:28 WBC RBC Hgb Hct MCV MCH MCHC RDW Plt Count MPV Im
--- NOTE | 2022-03-15 16:32 | WPDHPUPDATE1 ---
History and Physical Update Update Date/Time: 03/15/22 16:32 History and Physical has been reviewed, including an updated exam of the patient. There are NO changes in the patient's condition. Risks, benefits, and alternatives have been discussed and questions answered. Patient agrees to proceed with procedure.
[2022-03-15] MEDS: LIDOCAINE HCL 2% GEL UROJET 10 ML PKG MUCOUS MEM (16:48)
--- NOTE | 2022-03-15 16:52 | P.OP_ITS ---
Procedure Note - Detailed Date of Procedure 03/15/22 Pre-op Diagnosis Gross hematuria Post-op Diagnosis Same Procedure Performed Cystoscopy, clot evacuation and cauterization of prostatic urethra Surgeon Dallas Siegel MD Description of Procedure Patient is brought the op suite was prepped draped in routine sterile fashion while in dorsal lithotomy position. 2% xylocaine jelly was introduced intraurethrally and systemic sedation is administered per the anesthesia department. Cystoscopy is undertaken with a 24 F resectoscope. He has a moderate amount of clot which was evacuated using a Jeannie syringe. There was mild patchy hyperemia in the posterior bladder wall consistent with catheter cystitis. He has a massive prostate that is using both at the bladder neck and throughout the posterior wall. Using a 5 mm rollerball this is extensively cauterized. The resectoscope was removed and a 22 F hematuria catheter was adve anurag to continuous irrigation. Patient tolerated the procedure well was taken recovery room good condition Drains Yes Packing No Pathology None sent Complications No immediate complications Condition Stable
[2022-03-15] MEDS: LACTATED RINGERS 1,000 ML 30 ML IV CONT (16:55)
[2022-03-15 17:15] LABS: Glucose Point of Care 97 mg/dl (65-105)
[2022-03-15 20:21] LABS: Glucose Point of Care 172 mg/dl (65-105)
[2022-03-15] MEDS: NIACIN SA 500 MG TABLET PO (21:29)
[2022-03-15] MEDS: TAMSULOSIN HCL 0.4 MG CAPSULE PO (21:29)
[2022-03-15] MEDS: ATORVASTATIN 10 MG TABLET PO (21:29)
[2022-03-16] VITALS: PULSE 89
[2022-03-16] MEDS: AMPICILLIN 1 GM/NS 50 ML 1 GM/50 ML BAG IVPB ×2 (00:20→05:49)
[2022-03-16 04:00] VITALS: PULSE 66
[2022-03-16 06:00] VITALS: BP 132/76; PULSE 73; RESP 14; TEMP 36.1; O2SAT 99
--- NOTE | 2022-03-16 06:47 | WPDUROPN2 ---
Progress Note: A&P Assessment and Plan (1) Acute hemorrhagic cystitis: Code(s): N30.01 - Acute cystitis with hematuria Status: Acute (2) Urinary retention due to benign prostatic hyperplasia: Code(s): N40.1 - Benign prostatic hyperplasia with lower urinary tract symptoms; R33.8 - Other retention of urine Status: Acute Assessment and Plan: Urine clear on slow CBI Urine cx.: enterococcus Will stop CBI this morning Home after lunch on Macrobid x7 days if urine remains clear off CBI Subjective Subjective Date/Time Seen: 03/16/22 06:47 c/o being cold - wants to go home where it's warmer. Otherwise, uneventful night. Review of Systems Cardiovascular: Cardiovascular: Denies chest pain, Denies lightheadedness, Denies palpitations and Denies dyspnea Respiratory: Respiratory: Denies dyspnea Gastrointestinal: Gastrointestinal: Denies diarrhea, Denies nausea and Denies vomiting Genitourinary: Genitourinary: Denies hematuria and Denies dysuria Endocrine: Endocrine: Denies palpitations Exam Const: General: no acute distress Resp: Effort & Inspection: normal respiratory effort GI: Inspection: non-distended GI Palp: No abdominal tenderness and No Guarding due to palpation present (GI) Auscultation: normal bowel sounds Objective Data Vital Signs Vital Signs: Vital Signs - 24 hr 03/15/22 08:00 03/15/22 14:00 03/15/22 15:11 Temperature 97.5 F L 98.1 F Pulse Rate 65 74 Respiratory Rate 16 16 Blood Pressure 117/73 141/77 H Pulse Oximetry 100 100 Oxygen Delivery Room Air Room Air 03/15/22 16:55 03/15/22 17:10 03/15/22 17:25 Temperature 98.8 F Pulse Rate 70 68 67 Respiratory Rate 12 18 18 Blood Pressure 137/67 124/84 146/57 H Pulse Oximetry 99 100 100 Oxygen Delivery Room Air Room Air Room Air 03/15/22 17:40 03/15/22 17:49 03/15/22 18:22 Temperature 97 F L Pulse Rate 68 69 80 Respiratory Rate 18 20 20 Blood Pressure 140/57 L 133/68 132/64 Pulse Oximetry 99 98 100 Oxygen Delivery Room Air Room Air 03/15/22 21:33 03/16/22 00:00 03/16/22 04:00 Temperature 97.1 F L Pulse Rate 71 89 66 Respiratory Rate 16 Blood Pressure 135/68 Pulse Oximetry 96 Oxygen Delivery 03/16/22 06:00 Temperature 96.9 F L Pulse Rate 73 Respiratory Rate 14 Blood Pressure 132/76 Pulse Oximetry 99 Oxygen Delivery Intake/Output Intake/Output: Intake & Output 03/13/22 03/14/22 03/15/22 03/16/22 23:59 23:59 23:59 23:59 Intake Total 2150 3372 600 Output Total 7970 3110 1900 Balance 677 -4505 -1544 Meds/Results Medications: Active Medications Generic Name Dose Route Start Last Admin Trade Name Freq PRN Reason Stop Dose Admin Acetaminophen 1,000 mg 03/15/22 00:13 Acetaminophen 500 Mg Tablet PO Q6H PRN Mild Pain (1-3) or Fever Hydrocodone Bitart/Acetaminophen 1 tab 03/15/22 00:13 03/15/22 00:28 Hydrocodone/Acetaminophen (*Crx) 7.5-325 Mg Tablet PO 1 tab Q6H PRN Administration Pain Rated 7-10 Hydrocodone Bitart/Acetaminophen 1 tab 03/15/22 00:14 Hydrocodone/Acetaminophen (*Crx) 5-325 Mg Tablet PO Q6H PRN Pain Rated 4-6 Amlodipine Besylate 5 mg 03/14/22 09:00 03/15/22 09:35 Amlodipine Besylate 5 Mg Tablet BY MOUTH 5 mg DAILY PETER Administration Aspirin 81 mg 03/14/22 09:00 03/15/22 10:46 Aspirin 81 Mg Chewable Tablet PO Not Given DAILY PETER Atorvastatin Calcium 10 mg 03/14/22 21:00 03/15/22 21:29 Atorvastatin 10 Mg Tablet PO 10 mg HS PETER Administration Fentanyl Citrate 25 mcg 03/15/22 16:27 Fentanyl Citrate Inj (*Crx) 100 Mcg/2 Ml Vial IV PUSH Q2M PRN Pain Ferrous Sulfate 324 mg 03/14/22 09:00 03/15/22 09:35 Ferrous Sulfate 324 Mg Tablet PO 324 mg DAILY PETER Administration Finasteride 5 mg 03/14/22 09:00 03/15/22 09:35 Finasteride 5 Mg Tablet PO 5 mg DAILY PETER Administration Fluticasone Propionate 1 spray 03/14/22 09:
[2022-03-16 07:49] LABS: Glucose Point of Care 126 mg/dl (65-105)
[2022-03-16 08:00] VITALS: PULSE 73
[2022-03-16] MEDS: MULTIVITAMINS THERAPEUTIC TAB (*BKC) 1 TABLET PO (09:25)
[2022-03-16] MEDS: metFORMIN HCL 500 MG TABLET PO (09:25)
[2022-03-16] MEDS: amLODIPine BESYLATE 5 MG TABLET BY MOUTH (09:26)
[2022-03-16] MEDS: FERROUS SULFATE 324 MG TABLET PO (09:26)
[2022-03-16] MEDS: hydroCHLOROthiazide 25 MG TABLET PO (09:26)
[2022-03-16] MEDS: lisinopriL 10 MG TABLET PO (09:26)
[2022-03-16] MEDS: FLUTICASONE PROPIONATE 0.05% NA SPR 16 GM BTL (*BKC) 1 SPRAY NASAL (09:28)
[2022-03-16 10:44] LABS: Hematocrit 31.5 % (42.0-52.0); Hemoglobin 10.4 g/dL (14.0-18.0)
[2022-03-16 12:22] LABS: Glucose Point of Care 142 mg/dl (65-105)
--- NOTE | 2022-03-16 12:48 | PM.DS ---
DS: Admitting Diagnosis Discharge Date 03/16/2022 Admitting Diagnosis Hematuria DS: Discharge Diagnosis Discharge Diagnosis (1) Acute hemorrhagic cystitis: Code(s): N30.01 - Acute cystitis with hematuria Status: Acute Assessment and Plan: Patient presented with painless hematuria with indwelling Mariee catheter - Complicated infection secondary to indwelling urinary catheter in setting of BPH. - Interval complication of clotting and inhibition of the mariee catheter during admission. Hematuria resolved following CBI - underwent cystoscopy with clot evacuation cauterization prostatic urethra on 03/15/2022 - initiated on IV ceftriaxone during admission, transitioned based on urine culture results - Urine culture with growth of 50-100k Enterococcus - Will continue Macrobid for 7 days based on Urology recommendations - Mariee catheter will be continued on discharge until outpatient urology follow-up in 2 weeks - Aspirin held until 03/20/2020 to per Urology recommendations given hematuria (2) Urinary retention due to benign prostatic hyperplasia: Code(s): N40.1 - Benign prostatic hyperplasia with lower urinary tract symptoms; R33.8 - Other retention of urine Status: Acute Assessment and Plan: patient with outpatient Mariee catheter prior to admission x2 weeks, had recently undergone outpatient urodynamics - will continue Mariee catheter as an outpatient - follow-up with urology in 2 weeks - continue tamsulosin (3) Acute hypokalemia: Code(s): E87.6 - Hypokalemia Status: Resolved Assessment and Plan: potassium low on admission at 2.8. Resolved with supplementation. Potassium remained stable throughout remainder of admission (4) Anemia: Code(s): D64.9 - Anemia, unspecified Status: Acute Assessment and Plan: Chronic in nature, normocytic. H&H remained consistent with prior labs. Hematuria resolved and no ongoing bleeding (5) Diabetes mellitus type 2 in nonobese: Code(s): E11.9 - Type 2 diabetes mellitus without complications Status: Acute Assessment and Plan: A1c is 6.5. Continue home metformin (6) Renal mass: Code(s): N28.89 - Other specified disorders of kidney and ureter Status: Acute Assessment and Plan: CT a/p on 03/14 with left renal mass measuring up to 1.7 cm. - This has been previously evaluated with MRI (02/11/22) which revealed complex proteinaceous/hemorrhagic cyst requiring no further evaluation DS: Summary Hospital Course Hospital Course: date of admission: 03/14/2022 date of discharge: 03/16/2022 Meliton Delacruz is an 81-year-old male with a history of hypertension, diabetes mellitus hyperlipidemia, peripheral neuropathy, and BPH with urinary retention requiring indwelling Mariee catheter who presented to the emergency department on 03/14/2022 with complaints of blood in Mariee catheter. On presentation to the ED, his vital signs were stable, he was afebrile, hemoglobin 10.9, hematocrit 33.7, potassium 2.8, additional laboratory workup unremarkable, urinalysis grossly abnormal concerning for UTI, and CT of the abdomen/pelvis showed bladder wall thickening concerning for cystitis with severely enlarged prostate. He was admitted to the hospitalist service for further evaluation and management and was seen in consultation by Urology. please see above for further details. Hematuria resolved following CBI. He was treated with antibiotics for UTI. Underwent cystoscopy with clot evacuation and cauterization of prostatic urethra, tolerated this procedure well. He will continue with Mariee catheter. He should wear a leg bag during the day and a large bag at night. He will follow-up with urology as an outpatient. Please see above for further details. Discussed with both the patient and his worrisome signs and symptoms for which to return. Both comfortable with plans for discharge home and Uro
== END 2022-03-16 12:50 | disposition home or self-care (01) | DRG 663 ==
LOC: ANHED 03-14 03:59 → ANH3MEDSUR 03-14 04:51
PROVIDERS: Nurse Practitioner Adult Health; Physician Assistant; Admitting Provider Internal Medicine; Emergency Provider Emergency Medicine; PCP Family Medicine; Visit Provider Urology
PROC: 0TCB8ZZ Extirpation of Matter from Bladder, Via Natural or Artificial Opening Endoscopic (ICD-10-PCS; CPT 52001; principal; 2022-03-15 16:00)
DX: T83.511A Infection and inflammatory reaction due to indwelling urethral catheter, initial encounter (principal); N30.01 Acute cystitis with hematuria; B95.2 Enterococcus as the cause of diseases classified elsewhere; N40.1 Benign prostatic hyperplasia with lower urinary tract symptoms; R33.8 Other retention of urine; N28.89 Other specified disorders of kidney and ureter; E87.6 Hypokalemia; E11.43 Type 2 diabetes mellitus with diabetic autonomic (poly)neuropathy; D17.71 Benign lipomatous neoplasm of kidney; E78.2 Mixed hyperlipidemia; I10 Essential (primary) hypertension; M19.90 Unspecified osteoarthritis, unspecified site; D64.9 Anemia, unspecified; Z90.49 Acquired absence of other specified parts of digestive tract; Z87.891 Personal history of nicotine dependence
CPT/HCPCS: 36415; 74177; 80048; 80053; 81001; 82948; 83036; 83735; 85014; 85018; 85025; 85610; 85730; 87086; 87147; 87181; 87186; 93005; 96361; 96365; 99285; A9270; C1757; G0378; J0290; J0696; J3010; J3480; J7030; J7040; J7120; Q9967

== ENCOUNTER 2022-03-30 15:25 | Outpatient (CLI) | payer MEDICARE, SELFPAY ==
[2022-03-30 16:38] LABS: Iron 37 ug/dL (49-181)
[2022-03-30 16:40] LABS: Basophils Absolute Auto 0.1 K/mm3 (0.0-0.1); Basophils Percent Auto 0.6 % (0.2-1.2); Eosinophils Absolute Auto 0.3 K/mm3 (0-0.3); Eosinophils Percent Auto 3.2 % (0-4.4); Hematocrit 35.3 % (42.0-52.0); Hemoglobin 11.5 g/dL (14.0-18.0); Immature Granulocyte Absolute 0.04 K/mm3 (0.00-0.031); Immature Granulocyte Percent A 0.5 % (0-0.5); Lymphocytes Absolute Auto 1.22 K/mm3 (0.9-3.2); Lymphocytes Percent Auto 15.5 % (18.3-44.2); Mean Corpuscular HGB Conc 32.6 g/dl (32-36); Mean Corpuscular Hemoglobin 28.7 pg (26-34); Mean Platelet Volume 9.4 fl (7.4-10.4); Monocytes Absolute Auto 0.5 K/mm3 (0.1-0.6); Monocytes Percent Auto 5.7 % (2.6-8.5); Neutrophils Absolute Auto 5.8 K/mm3 (1.3-6.7); Neutrophils Percent Auto 74.5 % (45.5-73.1); Platelet Count Result 362 k/mm3 (150-375); Red Blood Count 4.01 M/mm3 (4.6-6.20); Red Cell Distribution Width 13.3 % (11.5-14.5); White Blood Count 7.9 K/mm3 (4.5-10.0)
[2022-03-30 16:50] LABS: Percent Iron Saturation 14 % (20-50)
== END 2022-03-30 15:26 | disposition home or self-care (01) ==
LOC: ANHLAB 15:27
PROVIDERS: PCP Family Medicine; Visit Provider Internal Medicine Hematology & Oncology
DX: D64.9 Anemia, unspecified (principal)
CPT/HCPCS: 36415; 82607; 82728; 83540; 83550; 85025

== ENCOUNTER 2022-05-03 10:23 | Emergency (ER) | payer MEDICARE, SELFPAY ==
[2022-05-03 10:57] VITALS: BP 148/61; PULSE 89; RESP 18; TEMP 36.6; O2SAT 100
--- NOTE | 2022-05-03 11:16 | ED.MALEGU ---
HPI - Male Genitourinary General Chief complaint: Extremity Problem,Nontraumatic Stated complaint: rt leg and hip pain Time Seen by Provider: 05/03/22 11:00 Source: patient Mode of arrival: ambulatory Limitations: no limitations History of Present Illness HPI Narrative: Mr. Delacruz is an 82-year-old male patient presenting to the clinic today with complaints of right-sided hip/groin pain and testicle pain x2 days. He reports that his testicle is very tender to touch. Thinks that he may have aggravated his hip was going up and down stairs 2 days ago while carrying summer close close up and winter clothes down. He denies any fever chills. He does have an indwelling catheter for BPH Related Data Home Medications Medication Instructions Recorded Confirmed cetirizine 10 mg tablet (Zyrtec) 10 mg PO DAILY 07/04/19 05/03/22 multivitamin (Multiple Vitamins 1 tablet PO DAILY 02/29/20 05/03/22 tablet) niacin 500 mg tablet,extended 500 mg PO HS 02/29/20 05/03/22 release (Slo-Niacin) omeprazole 20 mg capsule,delayed 20 mg PO DAILY 08/05/21 05/03/22 release amlodipine 5 mg-benazepril 10 mg 1 cap PO DAILY 02/11/22 05/03/22 capsule ferrous sulfate 325 mg (65 mg 65 mg PO DAILY 02/11/22 05/03/22 iron) tablet (Iron (ferrous sulfate)) finasteride 5 mg tablet 5 mg PO DAILY 02/26/22 05/03/22 Allergies Allergy/AdvReac Type Severity Reaction Status Date / Time neomycin Allergy Mild Rash Verified 05/03/22 11:13 Sulfa (Sulfonamide AdvReac Intermediate Nausea Verified 05/03/22 11:13 Antibiotics) Review of Systems Review of Systems: Pertinent positives per HPI. Patient denies any fever, chills, rash, headache, visual changes, dizziness, cough, runny nose, sore throat, shortness of breath, chest pain, palpitations, nausea, vomiting, diarrhea, constipation, abdominal pain. [facility] Past Medical History Medical History Aftercare following surgery of the musculoskeletal system Arterial vascular disease Arthritis Diabetes mellitus with autonomic neuropathy Essential (primary) hypertension Fracture of ankle with nonunion HTN (hypertension) Mixed hyperlipidemia Peripheral autonomic neuropathy due to diabetes mellitus Retained orthopedic hardware Seasonal allergies Traumatic arthritis of right ankle Trimalleolar fracture Type 2 diabetes mellitus without complications Urinary frequency Vision abnormalities Wears glasses Surgical History Surgical History Hx of cholecystectomy Family History Family History Father Diabetes mellitus Hypertension Acute myocardial infarction Cerebrovascular accident Mother Family history of malignant neoplasm Other Breast cancer Social History Social History Smoking packs per day: 0.5 Smoking cigarettes per day: 10.0 Smoking status: Former smoker Alcohol intake: former Alcohol use details: FEW DRINKS/YEAR Substance use: never Substance use type: does not use Gender identity (if verbalized by the patient): Male Spiritual care concerns: No Comments At the time of my signature, I reviewed and agree with the nursing past medical, surgical, social, and family history. There is no relevant family history pertinent to the patient complaint. Exam Narrative: General: Well-developed, well nourished, in no apparent distress. Head: Normocephalic, atraumatic. Cardio: Regular rate and rhythm, s1 and s2 normal, no murmur appreciated. Resp: Clear to auscultation bilaterally, no rhonchi, rales, wheezing or rubs. Abdomen: Soft, pliable, bowel sounds present in all quadrants, non-tender to palpation, no organomegly, no CVAT tenderness. : Uncircumcised male with Ahumada cath in the urinary meatus, with yellowish cloudy urine in urine leg bag
== END 2022-05-03 11:20 | disposition short-term general hospital (02) ==
LOC: EXPTROY 10:49
PROVIDERS: Emergency Provider Nurse Practitioner Family; PCP Family Medicine
DX: N50.811 Right testicular pain (principal); R10.31 Right lower quadrant pain; Z87.891 Personal history of nicotine dependence; E11.43 Type 2 diabetes mellitus with diabetic autonomic (poly)neuropathy; I10 Essential (primary) hypertension; E78.2 Mixed hyperlipidemia
CPT/HCPCS: 99212; G0463

== ENCOUNTER 2022-05-03 11:43 | Inpatient (IN) | payer MEDICARE, SELFPAY ==
[2022-05-03] VITALS (10 sets, daily range): BP systolic 119–153; BP diastolic 49–82; PULSE 60–86; RESP 15–20; TEMP 36.4–37.4; O2SAT 98–100
--- NOTE | ~2022-05-03 | US_ITS ---
EXAMINATION: US scrotum doppler DATE: 05/03/2022 13:56 INDICATION: Right testicular pain and swelling. TECHNIQUE: Grayscale and Doppler ultrasound images of the testes were obtained. COMPARISON: None. FINDINGS: The right testis measures 5.3 x 3.3 x 3.3 cm. The left testis measures 4.7 x 2.3 x 3.2 cm. There is increased vascular flow in right testis. There is a 4 mm cyst in right testis. The right epi didymis demonstrates increased vascular flow. The left epididymis demonstrates 6 mm and 5 mm cysts.. There are small bilateral hydroceles. IMPRESSION: 1. Right-sided epididymoorchitis. 2. Small bilateral hydroceles. Reviewed, dictated and finalized at location A. ABILITY MANAGER
[2022-05-03 12:29] LABS: Bacteria Urine 1+ /hpf; Mucus Urine Rare /lpf; RBC Urine 51-75 /hpf (0-2); WBC Urine >75 /hpf
[2022-05-03 12:35] LABS: Appearance Urine Cloudy (Clear); Bilirubin Urine Negative (Negative); Blood Urine 2+ (Negative); Color Urine Yellow (Yellow); Glucose Urine UA Trace mg/dL (Negative); Ketones Urine Trace mg/dL (Negative); Leukocyte Esterase Ur 1+ LEU/UL (Negative); Nitrate Urine Positive (Negative); Protein Urine 2+ mg/dL (Negative)
[2022-05-03 12:41] LABS: Add Urine Microscopic? YES
--- NOTE | 2022-05-03 14:02 | ED.GENADULT ---
HPI - General Adult General Chief complaint: Urogenital-Male Stated complaint: testicular swelling Time Seen by Provider: 05/03/22 13:16 Source: RN notes reviewed History of Present Illness HPI narrative: Patient presents emergency department from urgent care for right testicular pain. Patient states he began noticing symptoms yesterday states he noticed pain and aching in his right testicle with enlargement of his right testicle. States the pain goes up into his groin states is not taking thing for the pain today he denies any fevers or chills abdominal pain nausea vomiting diarrhea or any other symptoms. States he has a chronic indwelling Ahumada since June and is followed by Dr. Siegel. Denies have any fevers or chills Related Data Home Medications Medication Instructions Recorded Confirmed cetirizine 10 mg tablet (Zyrtec) 10 mg PO DAILY 07/04/19 05/03/22 multivitamin (Multiple Vitamins 1 tablet PO DAILY 02/29/20 05/03/22 tablet) niacin 500 mg tablet,extended 500 mg PO HS 02/29/20 05/03/22 release (Slo-Niacin) omeprazole 20 mg capsule,delayed 20 mg PO DAILY 08/05/21 05/03/22 release amlodipine 5 mg-benazepril 10 mg 1 cap PO DAILY 02/11/22 05/03/22 capsule ferrous sulfate 325 mg (65 mg 65 mg PO DAILY 02/11/22 05/03/22 iron) tablet (Iron (ferrous sulfate)) finasteride 5 mg tablet 5 mg PO DAILY 02/26/22 05/03/22 Allergies Allergy/AdvReac Type Severity Reaction Status Date / Time neomycin Allergy Mild Rash Verified 05/03/22 14:17 Sulfa (Sulfonamide AdvReac Intermediate Nausea Verified 05/03/22 14:17 Antibiotics) Review of Systems Review of Systems: Gen.: Denies fevers or chills ENT: Denies congestion Respiratory: Denies shortness of breath or cough CV: Denies chest pain or palpitations GI: Denies abdominal pain nausea, emesis or diarrhea HPI Musculoskeletal: Denies back pain or muscle pain Neuro: Denies numbness, tingling, weakness or focal weakness Skin: Denies rash Except as documented, all other systems reviewed and negative [facility] Past Medical History Medical History Aftercare following surgery of the musculoskeletal system Arterial vascular disease Arthritis Diabetes mellitus with autonomic neuropathy Essential (primary) hypertension Fracture of ankle with nonunion HTN (hypertension) Mixed hyperlipidemia Peripheral autonomic neuropathy due to diabetes mellitus Retained orthopedic hardware Seasonal allergies Traumatic arthritis of right ankle Trimalleolar fracture Type 2 diabetes mellitus without complications Urinary frequency Vision abnormalities Wears glasses Surgical History Surgical History Hx of cholecystectomy Family History Family History Father Diabetes mellitus Hypertension Acute myocardial infarction Cerebrovascular accident Mother Family history of malignant neoplasm Other Breast cancer Social History Social History Smoking packs per day: 0.5 Smoking cigarettes per day: 10.0 Smoking status: Former smoker Alcohol intake: former Alcohol use details: FEW DRINKS/YEAR Substance use: never Substance use type: does not use Gender identity (if verbalized by the patient): Male Spiritual care concerns: No Exam Narrative: APPEARANCE: No acute distress, nontoxic, resting in bed EYES: EOMI HEENT: Normocephalic, atraumatic, OMM RESPIRATORY: No respiratory distress Clear to auscultation bilaterally with no rhonchi wheezing or rales. CARDIOVASCULAR: Regular rate and rhythm without murmurs rubs or gallops. ABDOMINAL: Soft, nontender, nondistended, no rebound or guarding : No phimosis or paraphimosis chronic indwelling Ahumada present, there is erythema of the scrotum the right testicle is enlarged and tender to p
[2022-05-03 14:03] LABS: Basophils Absolute Auto 0.1 K/mm3 (0.0-0.1); Basophils Percent Auto 0.2 % (0.2-1.2); Hematocrit 34.5 % (42.0-52.0); Hemoglobin 11.2 g/dL (14.0-18.0); Immature Granulocyte Absolute 0.19 K/mm3 (0.00-0.031); Immature Granulocyte Percent A 0.9 % (0-0.5); Lymphocytes Absolute Auto 0.83 K/mm3 (0.9-3.2); Lymphocytes Percent Auto 3.9 % (18.3-44.2); Mean Corpuscular HGB Conc 32.5 g/dl (32-36); Mean Corpuscular Hemoglobin 28.6 pg (26-34); Mean Platelet Volume 9.9 fl (7.4-10.4); Monocytes Absolute Auto 1.1 K/mm3 (0.1-0.6); Neutrophils Absolute Auto 18.9 K/mm3 (1.3-6.7); Platelet Count Result 263 k/mm3 (150-375); Red Blood Count 3.92 M/mm3 (4.6-6.20); Red Cell Distribution Width 14.3 % (11.5-14.5); White Blood Count 21.1 K/mm3 (4.5-10.0)
[2022-05-03 14:17] LABS: Alanine Aminotransferase 19 U/L (6-50); Albumin Level 4.1 g/dL (3.5-5.1); Alkaline Phosphatase 118 U/L (38-126); Anion Gap 11 mmol/L (8-16); Aspartate Amino Transferase 23 U/L (17-59); Bilirubin,Total 0.8 mg/dL (0.2-1.3); Blood Urea Nitrogen 14 mg/dL (9-20); Calcium 8.2 mg/dL (8.4-10.2); Carbon Dioxide 28 mmol/L (22-30); Chloride 93 mmol/L (98-107); Estimated CRCL calculation 68 ml/min; Estimated Glomerular Filt Rate > 60; Glucose 165 mg/dL (65-110); Sodium 132 mmol/L (137-145)
[2022-05-03 14:18] LABS: Acanthocytes 1+ (NORMAL); Ovalocytes 1+ (NORMAL); Platelet Estimate Adequate (Adequate)
[2022-05-03 14:21] LABS: Schistocytes None Seen (NORMAL)
[2022-05-03] MEDS: POTASSIUM CHLORIDE 20 MEQ TABLET 40 MEQ PO (14:50)
[2022-05-03] MEDS: SODIUM CHLORIDE 0.9% IV 1,000 ML 999 ML IV CONT (14:58)
[2022-05-03 15:02] LABS: Lactic Acid Reflex 1.8 mmol/L (0.7-2.0)
--- NOTE | 2022-05-03 16:28 | WPDURCON ---
Assessment and Plan Assessment and plan (1) Pain in right testicle: Code(s): N50.811 - Right testicular pain Status: Acute (2) Right groin pain: Code(s): R10.31 - Right lower quadrant pain Status: Acute (3) Epididymitis, right: Code(s): N45.1 - Epididymitis Status: Acute Assessment and Plan: Elevate Scrotum Apply ICE Intermittently in 20 minute intervals. Start IV antibiotics, tailor to culture results. Cultures are pending at this time. Repeat Scrotal US if patient becomes febrile or symptoms worsen. Urology Consult Note HPI Date Seen: 05/03/22 Time Seen: 16:28 Primary Care Provider: Meliton Washburn MD Consult Narrative Reason for consult: Right Epididymoorchitis Narrative: Meliton Delacruz is a 82 year old male who presented to the ER today with acute onset of right sided scrotal edema and pain that started yesterday. He has a WBC of 21.1 and creatinine of 0.80, UA that is suggestive of a UTI and blood/urine cultures pending. He is afebrile and vitals are stable. His scrotal US shows right epididymoorchitis with small bilateral hydroceles. He has a chronic indwelling mariee catheter d/t an atonic bladder diagnosed by urodynamics on 03/09/22. He is seen regularly in our office for mariee changes on a monthly basis but refuses to learn self catheterization. He continues to take Tamsulosin and Finasteride as well as Bethanechol. He has failed many voiding trials and is unable to urinate on his own. He is patient of Dr. Carrington. Review of Systems Constitutional: Constitutional: Reports fatigue and Reports weakness Cardiovascular: Cardiovascular: Denies chest pain Respiratory: Respiratory: Reports no additional respiratory complaints Gastrointestinal: Gastrointestinal: Denies abdominal pain, Denies nausea and Denies vomiting Genitourinary: Genitourinary: Denies hematuria, Denies dysuria, Denies flank pain, Denies urinary frequency, Denies urinary hesitancy, Denies urinary incontinence and Denies urinary urgency Comments: right sided scrotal edema and pain PMFSH Past Medical History Medical History Aftercare following surgery of the musculoskeletal system Arterial vascular disease Arthritis Diabetes mellitus with autonomic neuropathy Essential (primary) hypertension Fracture of ankle with nonunion HTN (hypertension) Mixed hyperlipidemia Peripheral autonomic neuropathy due to diabetes mellitus Retained orthopedic hardware Seasonal allergies Traumatic arthritis of right ankle Trimalleolar fracture Type 2 diabetes mellitus without complications Urinary frequency Vision abnormalities Wears glasses Surgical History Surgical History Hx of cholecystectomy Family History Family History Father Diabetes mellitus Hypertension Acute myocardial infarction Cerebrovascular accident Mother Family history of malignant neoplasm Other Breast cancer Social History Social History Smoking packs per day: 0.5 Smoking cigarettes per day: 10.0 Smoking status: Former smoker Alcohol intake: former Alcohol use details: FEW DRINKS/YEAR Substance use: never Substance use type: does not use Gender identity (if verbalized by the patient): Male Spiritual care concerns: No Meds Home Medications and Allergies Home Medications Medication Instructions Recorded Confirmed Type cetirizine 10 mg tablet (Zyrtec) 10 mg PO DAILY 07/04/19 05/03/22 History multivitamin (Multiple Vitamins 1 tablet PO DAILY 02/29/20 05/03/22 History tablet) niacin 500 mg tablet,extended 500 mg PO HS 02/29/20 05/03/22 History release (Slo-Niacin) omeprazole 20 mg capsule,delayed 20 mg PO DAILY 08/05/21 05/03/22 History release metformin 500 mg tab
[2022-05-03 16:47] LABS: Influenza A QL RT-PCR Negative (Negative); Influenza B QL RT-PCR Negative (Negative); RSV RNA, RT-PCR Negative (Negative); SARS-CoV-2 RNA PCR Negative
--- NOTE | 2022-05-03 17:00 | PM.IMHP ---
H&P: HPI History of Present Illness Date/Time: 05/03/22 17:00 Chief Complaint: Testicular pain and swelling. Narrative: This is a very pleasant 82-year-old gentleman with hypertension, hyperlipidemia, paroxysmal atrial fibrillation, diabetes, anemia, benign prostatic hyperplasia, urinary retention, and GERD who presented to the emergency department for evaluation of right testicular pain since yesterday. He reports swelling an aching discomfort to the right testicle, radiating up into the groin. The discomfort is worse with movement and sitting down. He has not had any over urinary symptoms but he has issues with chronic urinary retention and that is unchanged. He otherwise feels okay and he has not had fever, chills, sweats, nausea, vomiting, or diarrhea. His are signs were stable on arrival to the emergency department. He has some mild electrolyte abnormalities with a low sodium and potassium but labs were otherwise pretty unremarkable. Urine was positive for nitrates, leukocyte esterase, bacteria, and white blood cells. Scrotal ultrasound showed right sided epididymoorchitis and he is being admitted in this setting for IV antibiotics. Review of Systems Review of Systems: Twelve systems were reviewed and are negative except for as per HPI. [facility] Past Medical History Medical History (Updated 05/03/22 @ 22:41 by Nat Wolff PA-C) Arterial vascular disease Arthritis Chronic anemia Diabetes mellitus with autonomic neuropathy Essential (primary) hypertension Fracture of ankle with nonunion Mixed hyperlipidemia Paroxysmal atrial fibrillation Peripheral autonomic neuropathy due to diabetes mellitus Retained orthopedic hardware Seasonal allergies Traumatic arthritis of right ankle Trimalleolar fracture Type 2 diabetes mellitus without complications Urinary frequency Vision abnormalities Wears glasses Surgical History Surgical History (Updated 05/03/22 @ 22:38 by Nat Wolff PA-C) History of prostate biopsy Hx of cholecystectomy Status post open reduction with internal fixation (ORIF) of fracture of ankle Family History Family History Father Diabetes mellitus Hypertension Acute myocardial infarction Cerebrovascular accident Mother Family history of malignant neoplasm Other Breast cancer Social History Social History (Updated 05/03/22 @ 22:39 by Nat Wolff PA-C) Social History: Surrogate medical decision maker: Fani Dickwer, spouse. Code status: Full code. Smoking packs per day: 0.5 Smoking cigarettes per day: 10.0 Smoking status: Former smoker Tobacco type: cigarettes Alcohol intake: never Alcohol use details: FEW DRINKS/YEAR Substance use: never Substance use type: does not use Lack of Transportation: No Lack of Food: Never True Current Housing: I Have Housing Concerned About Future Housing: No Difficulty Paying Gas/Electric Bills: No Difficulty Paying for Meds: No Currently Unemployed: No Education: Don't Know Difficulty w/ Childcare or Family Care: No Spiritual care concerns: No Meds Home Medications and Allergies Home Medications Medication Instructions Recorded Confirmed Type cetirizine 10 mg tablet (Zyrtec) 10 mg PO DAILY 07/04/19 05/03/22 History multivitamin (Multiple Vitamins 1 tablet PO DAILY 02/29/20 05/03/22 History tablet) omeprazole 20 mg capsule,delayed 20 mg PO DAILY 08/05/21 05/03/22 History release metformin 500 mg tablet 500 mg PO BID #180 tabs 09/18/21 05/03/22 Rx atorvastatin 10 mg tablet 10 mg PO HS #90 tabs 01/04/22 05/03/22 Rx fluticasone propionate 50 1 spray intranasal BID #16 grams 01/04/22 05/03/22 Rx mcg/actuation nasal spray,suspension (Flonase Allergy Relief) amlodipine 5 mg-benazepril 10 mg 1 cap PO DAILY 02/11/22 05/03/22 History capsule ferrous sulfate 325 mg (65 mg 65 mg PO DAILY 02/11/22 05/03/22 History iro
--- NOTE | 2022-05-03 18:32 | ADMGEN ---
This patient, Meliton Delacruz, was admitted to Medical Room 252-01. Patient/family oriented to hospital policies and general routines including ID bracelet, bed and alarms, visiting hours, pain management, procedures, bathroom and other care routines, personal items, smoking policy, room service/diet, and visiting hours. Information on how to activate the Rapid Response Team has been discussed. Patient/Family are encouraged to report perceived risks to care and to ask questions if they do not understand what they are told or what they should do.
[2022-05-03] MEDS: SODIUM CHLORIDE 0.9% IV 1,000 ML 80 ML IV CONT (18:53)
[2022-05-04 06:03] LABS: Alanine Aminotransferase 16 U/L (6-50); Alkaline Phosphatase 88 U/L (38-126); Anion Gap 11 mmol/L (8-16); Aspartate Amino Transferase 22 U/L (17-59); Bilirubin,Total 0.6 mg/dL (0.2-1.3); Blood Urea Nitrogen 9 mg/dL (9-20); Calcium 7.6 mg/dL (8.4-10.2); Carbon Dioxide 26 mmol/L (22-30); Chloride 95 mmol/L (98-107); Estimated CRCL calculation 77 ml/min; Estimated Glomerular Filt Rate > 60; Glucose 124 mg/dL (65-110); Magnesium 1.5 mg/dL (1.6-2.3); Potassium 3.2 mmol/L (3.4-5.0); Sodium 132 mmol/L (137-145)
[2022-05-04 06:25] LABS: Hematocrit 28.7 % (42.0-52.0); Hemoglobin 9.3 g/dL (14.0-18.0); Mean Corpuscular HGB Conc 32.4 g/dl (32-36); Mean Corpuscular Hemoglobin 28.3 pg (26-34); Mean Corpuscular Volume 87.2 fl (80-100); Mean Platelet Volume 10.4 fl (7.4-10.4); Platelet Count Result 212 k/mm3 (150-375); Red Blood Count 3.29 M/mm3 (4.6-6.20); Red Cell Distribution Width 14.1 % (11.5-14.5); White Blood Count 16.3 K/mm3 (4.5-10.0)
[2022-05-04 06:49] VITALS: BP 119/55; PULSE 81; RESP 20; TEMP 36.6; O2SAT 98
[2022-05-04 06:51] VITALS: BMI 24.6
[2022-05-04 08:12] LABS: Acanthocytes 2+ (NORMAL); Band Neutrophils Percent 4 % (0-6); Eosinophils Absolute Manual 0.32 K/mm3 (0.02-0.5); Eosinophils Percent Manual 2 % (0-4); Lymphocytes Absolute Manual 0.81 K/mm3 (1.1-4.5); Monocytes Absolute Manual 0.48 K/mm3 (0.1-0.90); Monocytes Percent Manual 3 % (3-9); Neutrophils Absolute Manual 14.67 K/mm3 (1.3-6.7); Neutrophils Percent Manual 86 % (46-73); Ovalocytes 1+ (NORMAL); Platelet Estimate Adequate (Adequate); Total Cells Counted 100
[2022-05-04 08:13] LABS: Poikilocytosis 2+ (NORMAL)
[2022-05-04 08:14] LABS: Crenated RBC 1+ (NORMAL); Schistocytes 1+ (NORMAL)
[2022-05-04] MEDS: SODIUM CHLORIDE 0.9% IV 1,000 ML 80 ML IV CONT (08:18)
[2022-05-04] MEDS: MAGNESIUM SULF 4 GM/WATER100ML 4 GM/100 ML BAG IVPB (08:19)
[2022-05-04 08:52] VITALS: BP 131/73; PULSE 78; O2SAT 100
[2022-05-04 08:53] LABS: Glucose Point of Care 136 mg/dl (65-105)
[2022-05-04] MEDS: amLODIPine BESYLATE 5 MG TABLET PO (08:53)
[2022-05-04] MEDS: FERROUS SULFATE 324 MG TABLET PO (08:53)
[2022-05-04] MEDS: BETHANECHOL CHLORIDE 25 MG TABLET PO ×2 (08:53→17:04)
[2022-05-04] MEDS: ENOXAPARIN 40 MG/0.4 ML SYRINGE SUB-Q (08:54)
[2022-05-04] MEDS: FINASTERIDE 5 MG TABLET PO (08:55)
[2022-05-04] MEDS: PANTOPRAZOLE 40 MG TABLET PO (08:55)
[2022-05-04] MEDS: LORATADINE 10 MG TABLET PO (08:55)
[2022-05-04] MEDS: MULTIVITAMINS THERAPEUTIC TAB (*BKC) 1 TABLET PO (08:55)
[2022-05-04] MEDS: lisinopriL 10 MG TABLET PO (08:55)
[2022-05-04] MEDS: metFORMIN HCL 500 MG TABLET PO ×2 (08:55→17:04)
[2022-05-04] MEDS: FLUTICASONE PROPIONATE 0.05% NA SPR 16 GM BTL (*BKC) 1 SPRAY NASAL ×2 (08:55→17:04)
[2022-05-04 09:06] VITALS: O2SAT 100
--- NOTE | 2022-05-04 09:30 | P.PNIM_ITS ---
Progress Note: A&P Assessment and Plan (1) Acute epididymo-orchitis: Code(s): N45.3 - Epididymo-orchitis Status: Acute Assessment and Plan: * presented to the emergency department today for evaluation of right testicular pain and swelling * Scrotal ultrasound shows right epididymal orchitis * Continue Levaquin * Urology consulted thank you for your help * Continue ice therapy * Trend symptoms (2) Chronic anemia: Code(s): D64.9 - Anemia, unspecified Status: Acute Assessment and Plan: * Current H/H 9.3/28.7 * Anemia labs iron 37, TIBC 272, % sat 14, Ferritin 46.40, B12 312 * Increase current ferrous sulfate to BID * Add Colace and miralax * Trend H/H * Transfuse as indicated (3) Urinary tract infection: Code(s): N39.0 - Urinary tract infection, site not specified Status: Acute Assessment and Plan: * UA appears infectious, cloudy, positive nitrates, 1+ leukocyte esterase, >75 WBCs, 1+ bacteria * Continue ceftriaxone * WBC 16.3 * Trend urine output * await culture results. * Adjust therapy according to sensitivities (4) Hypertension: Code(s): I10 - Essential (primary) hypertension Status: Acute Assessment and Plan: * Current BP is 119/55 * Continue home amlodipine and benazepril * Continue to hold HCTZ * Trend BP * Adjust therapy as indicated (5) Type 2 diabetes mellitus: Code(s): E11.9 - Type 2 diabetes mellitus without complications Status: Acute Assessment and Plan: * Current glucose is 124 * Hold metformin while in the hospital * ISS * hypoglycemia protocol * trend glucose * Adjust therapy as indicated (6) Benign prostatic hyperplasia: Code(s): N40.0 - Benign prostatic hyperplasia without lower urinary tract symptoms Status: Acute Assessment and Plan: * Seems to be chronic problem * Continue bethanechol and finasteride * Trend urinary output * Bladder scan as indicated (7) Electrolyte abnormality: Code(s): E87.8 - Other disorders of electrolyte and fluid balance, not elsewhere classified Status: Acute Assessment and Plan: * K is 3.2, and mag is 1.5 * Replace mag 4g once * 40mcg of K x1 * Continue to trend labs * Labs in the am Time Spent With Patient Time with patient: Greater than 35 minutes Subjective Date/time seen: 05/04/22929 Interval history: 05/04/22929 Patient stated that he feels okay today. He also stated that his pain is much better than it was yesterday. He denies any chest pain, shortness a breath, nausea, vomiting, diarrhea, fevers, sweats, chills. Urinary catheter is draining fine. Urine cultures still pending. Magnesium was 1.5, potassium 3.2 supplements given. Iron studies indicated low iron increased iron to b.i.d.. 05/03/22? 17:00 This is a very pleasant 82-year-old gentleman with hypertension, hyperlipidemia, paroxysmal atrial fibrillation, diabetes, anemia, benign prostatic hyperplasia, urinary retention, and GERD who presented to the emergency department for evaluation of right testicular pain since yesterday. He reports swelling an aching discomfort to the right testicle, radiating up into the groin. The discomfort is worse with movement and sitting down. He has not had any over urina
--- NOTE | 2022-05-04 09:30 | PM.IMPN ---
Progress Note: A&P Assessment and Plan (1) Acute epididymo-orchitis: Code(s): N45.3 - Epididymo-orchitis Status: Acute Assessment and Plan: presented to the emergency department today for evaluation of right testicular pain and swelling Scrotal ultrasound shows right epididymal orchitis Continue Levaquin Urology consulted thank you for your help Continue ice therapy Trend symptoms (2) Chronic anemia: Code(s): D64.9 - Anemia, unspecified Status: Acute Assessment and Plan: Current H/H 9.3/28.7 Anemia labs iron 37, TIBC 272, % sat 14, Ferritin 46.40, B12 312 Increase current ferrous sulfate to BID Add Colace and miralax Trend H/H Transfuse as indicated (3) Urinary tract infection: Code(s): N39.0 - Urinary tract infection, site not specified Status: Acute Assessment and Plan: UA appears infectious, cloudy, positive nitrates, 1+ leukocyte esterase, >75 WBCs, 1+ bacteria Continue ceftriaxone WBC 16.3 Trend urine output await culture results. Adjust therapy according to sensitivities (4) Hypertension: Code(s): I10 - Essential (primary) hypertension Status: Acute Assessment and Plan: Current BP is 119/55 Continue home amlodipine and benazepril Continue to hold HCTZ Trend BP Adjust therapy as indicated (5) Type 2 diabetes mellitus: Code(s): E11.9 - Type 2 diabetes mellitus without complications Status: Acute Assessment and Plan: Current glucose is 124 Hold metformin while in the hospital ISS hypoglycemia protocol trend glucose Adjust therapy as indicated (6) Benign prostatic hyperplasia: Code(s): N40.0 - Benign prostatic hyperplasia without lower urinary tract symptoms Status: Acute Assessment and Plan: Seems to be chronic problem Continue bethanechol and finasteride Trend urinary output Bladder scan as indicated (7) Electrolyte abnormality: Code(s): E87.8 - Other disorders of electrolyte and fluid balance, not elsewhere classified Status: Acute Assessment and Plan: K is 3.2, and mag is 1.5 Replace mag 4g once 40mcg of K x1 Continue to trend labs Labs in the am Time Spent With Patient Time with patient: Greater than 35 minutes Subjective Date/time seen: 05/04/22929 Interval history: 05/04/22929 Patient stated that he feels okay today. He also stated that his pain is much better than it was yesterday. He denies any chest pain, shortness a breath, nausea, vomiting, diarrhea, fevers, sweats, chills. Urinary catheter is draining fine. Urine cultures still pending. Magnesium was 1.5, potassium 3.2 supplements given. Iron studies indicated low iron increased iron to b.i.d.. 05/03/22? 17:00 This is a very pleasant 82-year-old gentleman with hypertension, hyperlipidemia, paroxysmal atrial fibrillation, diabetes, anemia, benign prostatic hyperplasia, urinary retention, and GERD who presented to the emergency department for evaluation of right testicular pain since yesterday. He reports swelling an aching discomfort to the right testicle, radiating up into the groin. The discomfort is worse with movement and sitting down. He has not had any over urinary symptoms but he has issues with chronic urinary retention and that is unchanged. He otherwise feels okay and he has not had fever, chills, sweats, nausea, vomiting, or diarrhea. His are signs were stable on arrival to the emergency department.? He has some mild electrolyte abnormalities with a low sodium and potassium but labs were otherwise pretty unremarkable.? Urine was positive for nitrates, leukocyte esterase, bacteria, and white blood cells. Scrotal ultrasound showed right sided epididymoorchitis and he is being admitted in this setting for IV antibiotics. Review of Systems Review of Systems:
[2022-05-04 12:32] LABS: Glucose Point of Care 185 mg/dl (65-105)
--- NOTE | 2022-05-04 13:36 | WPDUROPN2 ---
Progress Note: A&P Assessment and Plan (1) Acute epididymo-orchitis: Code(s): N45.3 - Epididymo-orchitis Status: Acute Assessment and Plan: Patient will continue Levaquin and elevated scrotum. Apply ICE PRN to affected area. Cultures are pending, tailor antibiotics to sensitivity report. WBC is trending downward and he is afebrile. Subjective Subjective Date/Time Seen: 05/04/22 13:36 Patient is doing better today s/p IV antibiotics. He states his pain in the scrotum has improved. His scrotum is still edematous and has erythema present. His WBC is improved and creatinine is stable. Review of Systems Gastrointestinal: Gastrointestinal: Denies abdominal pain, Denies nausea and Denies vomiting Genitourinary: Genitourinary: Denies hematuria, Denies flank pain, Reports scrotal swelling and Reports testicular pain Exam Const: General: cooperative and comfortable Resp: Effort & Inspection: normal respiratory effort Cardio: Rate: regular rate GI: GI Palp: Yes Soft to palpation and No Tenderness to palpation present (GI) : Testes: epididymal tenderness on the right and testicular swelling on the right Urinary Catheter: Urinary Catheter: patent and draining and urine clear Extrem: Right lower extremity: no edema Left lower extremity: no edema Objective Data Vital Signs Vital Signs: Vital Signs - 24 hr 05/03/22 14:17 05/03/22 14:17 05/03/22 14:31 Temperature Pulse Rate 86 Respiratory Rate 18 Blood Pressure 119/77 119/77 134/73 Pulse Oximetry 99 98 Oxygen Delivery 05/03/22 15:16 05/03/22 16:01 05/03/22 16:46 Temperature Pulse Rate Respiratory Rate Blood Pressure 145/76 H 138/71 139/71 Pulse Oximetry 100 99 98 Oxygen Delivery 05/03/22 17:31 05/03/22 18:16 05/03/22 18:20 Temperature Pulse Rate 60 Respiratory Rate 18 Blood Pressure 153/82 H 131/61 Pulse Oximetry 98 98 Oxygen Delivery 05/03/22 19:01 05/03/22 22:21 05/04/22 06:49 Temperature 97.5 F L 97.8 F Pulse Rate 77 81 Respiratory Rate 20 20 Blood Pressure 120/49 L 119/55 L Pulse Oximetry 99 98 Oxygen Delivery Room Air 05/04/22 08:52 05/04/22 09:06 Temperature Pulse Rate 78 Respiratory Rate Blood Pressure 131/73 Pulse Oximetry 100 100 Oxygen Delivery Room Air Intake/Output Intake/Output: Intake & Output 05/01/22 05/02/22 05/03/22 05/04/22 23:59 23:59 23:59 23:59 Intake Total 1150 1600 Output Total 200 800 Balance 950 800 Meds/Results Medications: Active Medications Generic Name Dose Route Start Last Admin Trade Name Freq PRN Reason Stop Dose Admin Amlodipine Besylate 5 mg 05/04/22 09:00 05/04/22 08:53 Amlodipine Besylate 5 Mg Tablet PO 06/03/22 08:59 5 mg DAILY PETER Administration Atorvastatin Calcium 10 mg 05/04/22 21:00 Atorvastatin 10 Mg Tablet PO HS PETER Bethanechol Chloride 25 mg 05/04/22 09:00 05/04/22 08:53 Bethanechol Chloride 25 Mg Tablet PO 25 mg BID PETER Administration Dextrose 12.5 gm 05/03/22 22:43 Dextrose 50% 25 Gm/50 Ml Syringe IV PUSH PRN PRN Hypoglycemia Protocol Enoxaparin Sodium 40 mg 05/04/22 09:00 05/04/22 08:54 Enoxaparin 40 Mg/0.4 Ml Syringe SUB-Q 40 mg DAILY PETER Administration Ferrous Sulfate 324 mg 05/04/22 09:00 05/04/22 08:53 Ferrous Sulfate 324 Mg Tablet PO 324 mg DAILY PETER Administration Finasteride 5 mg 05/04/22 09:00 05/04/22 08:55 Finasteride 5 Mg Tablet PO 5 mg DAILY PETER Administration Fluticasone Propionate 1 spray 05/04/22 09:00 05/04/22 08:55 Fluticasone Propionate 0.05% Na Spr 16 Gm Btl (*Bkc) NASAL 1 spray BID PETER Administration Glucagon 1 mg 05/03/22 22:43 Glucagon For Inj 1 Mg Vial IM PRN PRN Hypoglycemia Protocol Glucose 15 gm 05/03/22 22:43 Glucose Oral Gel 15 Gm Of Glucse In 37.5 Gm Tube PO PRN PRN Hypoglycemia Protocol Levofloxacin/De
[2022-05-04 14:00] VITALS: BP 122/42; PULSE 71; RESP 16; TEMP 36.3; O2SAT 98
[2022-05-04 17:15] LABS: Glucose Point of Care 151 mg/dl (65-105)
[2022-05-04 19:42] VITALS: BP 131/67; PULSE 72; RESP 16; TEMP 36.4; O2SAT 99
[2022-05-04 20:00] VITALS: PULSE 72; RESP 16; O2SAT 99
[2022-05-04] MEDS: TAMSULOSIN HCL 0.4 MG CAPSULE PO (20:06)
[2022-05-04] MEDS: ATORVASTATIN 10 MG TABLET PO (20:06)
[2022-05-04 20:33] LABS: Glucose Point of Care 126 mg/dl (65-105)
[2022-05-05 05:27] LABS: Alanine Aminotransferase 21 U/L (6-50); Albumin Level 2.7 g/dL (3.5-5.1); Alkaline Phosphatase 87 U/L (38-126); Anion Gap 8 mmol/L (8-16); Aspartate Amino Transferase 27 U/L (17-59); Bilirubin,Total 0.3 mg/dL (0.2-1.3); Blood Urea Nitrogen 8 mg/dL (9-20); Calcium 7.3 mg/dL (8.4-10.2); Carbon Dioxide 25 mmol/L (22-30); Chloride 100 mmol/L (98-107); Estimated CRCL calculation 77 ml/min; Estimated Glomerular Filt Rate > 60; Glucose 128 mg/dL (65-110); Potassium 3.2 mmol/L (3.4-5.0); Sodium 133 mmol/L (137-145)
[2022-05-05 05:29] VITALS: BP 137/60; PULSE 78; RESP 14; TEMP 36.6; O2SAT 98
[2022-05-05 05:31] LABS: Basophils Percent Auto 0.2 % (0.2-1.2); Eosinophils Absolute Auto 0.5 K/mm3 (0-0.3); Eosinophils Percent Auto 4.8 % (0-4.4); Hematocrit 28.1 % (42.0-52.0); Hemoglobin 9.1 g/dL (14.0-18.0); Immature Granulocyte Absolute 0.02 K/mm3 (0.00-0.031); Immature Granulocyte Percent A 0.2 % (0-0.5); Lymphocytes Absolute Auto 0.68 K/mm3 (0.9-3.2); Lymphocytes Percent Auto 7.2 % (18.3-44.2); Mean Corpuscular HGB Conc 32.4 g/dl (32-36); Mean Corpuscular Volume 89.5 fl (80-100); Mean Platelet Volume 10.2 fl (7.4-10.4); Monocytes Absolute Auto 0.5 K/mm3 (0.1-0.6); Monocytes Percent Auto 5.2 % (2.6-8.5); Neutrophils Absolute Auto 7.8 K/mm3 (1.3-6.7); Neutrophils Percent Auto 82.4 % (45.5-73.1); Platelet Count Result 221 k/mm3 (150-375); Red Blood Count 3.14 M/mm3 (4.6-6.20); Red Cell Distribution Width 13.8 % (11.5-14.5); White Blood Count 9.4 K/mm3 (4.5-10.0)
[2022-05-05] MEDS: POTASSIUM CHLORIDE 20 MEQ TABLET 40 MEQ PO (08:19)
[2022-05-05] MEDS: FINASTERIDE 5 MG TABLET PO (08:20)
[2022-05-05] MEDS: amLODIPine BESYLATE 5 MG TABLET PO (08:20)
[2022-05-05] MEDS: PANTOPRAZOLE 40 MG TABLET PO (08:20)
[2022-05-05] MEDS: lisinopriL 10 MG TABLET PO (08:20)
[2022-05-05] MEDS: ENOXAPARIN 40 MG/0.4 ML SYRINGE SUB-Q (08:21)
[2022-05-05] MEDS: BETHANECHOL CHLORIDE 25 MG TABLET PO (08:21)
[2022-05-05] MEDS: FLUTICASONE PROPIONATE 0.05% NA SPR 16 GM BTL (*BKC) 1 SPRAY NASAL (08:21)
[2022-05-05] MEDS: LORATADINE 10 MG TABLET PO (08:21)
[2022-05-05] MEDS: metFORMIN HCL 500 MG TABLET PO (08:21)
[2022-05-05] MEDS: MULTIVITAMINS THERAPEUTIC TAB (*BKC) 1 TABLET PO (08:21)
[2022-05-05] MEDS: FERROUS SULFATE 324 MG TABLET PO (08:21)
[2022-05-05 08:55] LABS: Glucose Point of Care 129 mg/dl (65-105)
[2022-05-05 10:00] VITALS: O2SAT 98
--- NOTE | 2022-05-05 12:21 | PM.DS ---
DS: Admitting Diagnosis Discharge Date 05/05/2022 1221 Admitting Diagnosis Acute epididymo-orchitis Acute UTI anemia, chronic Hypertension, chronic Type 2 diabetes mellitus Benign prostatic hyperplasia DS: Discharge Diagnosis Discharge Diagnosis (1) Acute epididymo-orchitis: Code(s): N45.3 - Epididymo-orchitis Status: Acute (2) Urinary tract infection: Qualifiers: Encounter type: initial encounter Indwelling urinary catheter type: indwelling urethral catheter Urinary tract infection type: catheter-associated UTI Qualified Code(s): T83.511A - Infection and inflammatory reaction due to indwelling urethral catheter, initial encounter; N39.0 - Urinary tract infection, site not specified Code(s): N39.0 - Urinary tract infection, site not specified Status: Acute (3) Chronic anemia: Code(s): D64.9 - Anemia, unspecified Status: Chronic (4) Hypertension: Qualifiers: Hypertension type: primary hypertension Qualified Code(s): I10 - Essential (primary) hypertension Code(s): I10 - Essential (primary) hypertension Status: Chronic (5) Type 2 diabetes mellitus: Qualifiers: Diabetes mellitus complication status: without complication Diabetes mellitus roasterman insulin use: without roasterman use Qualified Code(s): E11.9 - Type 2 diabetes mellitus without complications Code(s): E11.9 - Type 2 diabetes mellitus without complications Status: Chronic (6) Benign prostatic hyperplasia: Qualifiers: Lower urinary tract symptom presence: symptoms absent Qualified Code(s): N40.0 - Benign prostatic hyperplasia without lower urinary tract symptoms Code(s): N40.0 - Benign prostatic hyperplasia without lower urinary tract symptoms Status: Acute (7) Electrolyte abnormality: Code(s): E87.8 - Other disorders of electrolyte and fluid balance, not elsewhere classified Status: Acute DS: Summary Hospital Course Reason for hospitalization: Testicular pain and swelling Hospital Course: Meliton Delacruz is an 82-year-old gentleman with hypertension, hyperlipidemia, paroxysmal atrial fibrillation, diabetes, chronic anemia, benign prostatic hyperplasia, urinary retention with chronic indwelling urinary catheter, and GERD who presented to the emergency department for evaluation of right testicular pain x 1 day. He reported swelling and aching discomfort to the right testicle, radiating up into his groin region. The discomfort was worse with movement and sitting down. He did not have any urinary symptoms but he has issues with chronic urinary retention and that is unchanged. He otherwise felt okay. He denied fever, chills, sweats, nausea, vomiting, or diarrhea. His vitals were stable on arrival to the emergency department.? He has some mild electrolyte abnormalities with a low sodium 132 and potassium 3.0, but labs were otherwise unremarkable.? Urine was positive for nitrates, leukocyte esterase, bacteria, and >75 white blood cells. Scrotal ultrasound showed right sided epididymoorchitis. He was admitted to the medical floor for IV antibiotics. Acute epididymo-orchitis and acute UTI The patient presented to the emergency department for evaluation of right testicular pain and swelling for approximately one day prior to admission. A scrotal ultrasound showed right epididymal orchitis. He was treated with IV Levaquin 750 mg Q24 hours. Urology was consulted. Ice packs and scrotal elevation were recommended for pain. Urine culture demonstrated pansensitive e.coli. The patient has a thoracic aortic aneurysm that is being monitored, therefore, Levaquin was changed to PO Cefdinir 300 mg BID for 12 more days, for a total 14-day antibiotic course for complicated UTI. His leukocytosis, as well as scrotal swelling and edema, improved on antibiotic therapy and he was discharged home with his in stable condition. Blood cultures were negative from
[2022-05-05 12:39] LABS: Glucose Point of Care 161 mg/dl (65-105)
--- NOTE | 2022-05-05 14:58 | PC.NURSE ---
On 05/05/22, the student, [Briana Morejon], provided care and completed [facility] on this patient. I have reviewed the student's documentation and agree with the findings.
== END 2022-05-05 13:00 | disposition home or self-care (01) | DRG 728 ==
LOC: ANHED 17:20 → ANH2MED 17:56
PROVIDERS: Nurse Practitioner; Admitting Provider Student in an Organized Health Care Education/Training Program; Emergency Provider Emergency Medicine; PCP Family Medicine; Visit Provider Nurse Practitioner Family
DX: N45.3 Epididymo-orchitis (principal); T83.511A Infection and inflammatory reaction due to indwelling urethral catheter, initial encounter; E87.1 Hypo-osmolality and hyponatremia; N39.0 Urinary tract infection, site not specified; B96.20 Unspecified Escherichia coli [E. coli] as the cause of diseases classified elsewhere; D50.0 Iron deficiency anemia secondary to blood loss (chronic); E78.5 Hyperlipidemia, unspecified; E11.43 Type 2 diabetes mellitus with diabetic autonomic (poly)neuropathy; E87.6 Hypokalemia; E11.51 Type 2 diabetes mellitus with diabetic peripheral angiopathy without gangrene; I48.0 Paroxysmal atrial fibrillation; I10 Essential (primary) hypertension; I71.20 Thoracic aortic aneurysm, without rupture, unspecified; K21.9 Gastro-esophageal reflux disease without esophagitis; M19.90 Unspecified osteoarthritis, unspecified site; N40.1 Benign prostatic hyperplasia with lower urinary tract symptoms; N43.3 Hydrocele, unspecified; N31.2 Flaccid neuropathic bladder, not elsewhere classified; R33.8 Other retention of urine; Z20.822 Contact with and (suspected) exposure to COVID-19; Z87.891 Personal history of nicotine dependence; Z90.49 Acquired absence of other specified parts of digestive tract; Z79.84 Long term (current) use of oral hypoglycemic drugs
CPT/HCPCS: 36415; 76870; 80053; 81001; 82948; 83605; 83735; 85025; 87040; 87077; 87086; 87186; 87637; 93976; 96361; 96365; 96366; 96372; 96375; 99212; 99285; A9270; G0378; G0463; J1650; J1956; J3475; J7030

== ENCOUNTER 2022-06-08 11:40 | Outpatient (CLI) | payer MEDICARE, SELFPAY ==
[2022-06-08 12:03] LABS: Hemoglobin 11.8 g/dL (14.0-18.0); Mean Corpuscular HGB Conc 32.8 g/dl (32-36); Mean Corpuscular Hemoglobin 28.3 pg (26-34); Mean Corpuscular Volume 86.3 fl (80-100); Mean Platelet Volume 9.4 fl (7.4-10.4); Platelet Count Result 292 k/mm3 (150-375); Red Blood Count 4.17 M/mm3 (4.6-6.20); White Blood Count 8.3 K/mm3 (4.5-10.0)
== END 2022-06-08 11:41 | disposition home or self-care (01) ==
LOC: ANHLAB 11:43
PROVIDERS: PCP Family Medicine; Visit Provider Internal Medicine Hematology & Oncology
DX: D64.9 Anemia, unspecified (principal)
CPT/HCPCS: 36415; 82607; 85027

== ENCOUNTER 2022-09-02 08:03 | Outpatient (CLI) | payer MEDICARE, SELFPAY ==
[2022-09-02 08:25] LABS: Basophils Absolute Auto 0.1 K/mm3 (0.0-0.1); Basophils Percent Auto 0.6 % (0.2-1.2); Eosinophils Absolute Auto 0.1 K/mm3 (0-0.3); Eosinophils Percent Auto 1.4 % (0-4.4); Hematocrit 37.1 % (42.0-52.0); Hemoglobin 12.3 g/dL (14.0-18.0); Immature Granulocyte Absolute 0.03 K/mm3 (0.00-0.031); Immature Granulocyte Percent A 0.4 % (0-0.5); Lymphocytes Absolute Auto 1.06 K/mm3 (0.9-3.2); Lymphocytes Percent Auto 13.5 % (18.3-44.2); Mean Corpuscular HGB Conc 33.2 g/dl (32-36); Mean Corpuscular Hemoglobin 28.5 pg (26-34); Mean Corpuscular Volume 86.1 fl (80-100); Mean Platelet Volume 9.2 fl (7.4-10.4); Monocytes Absolute Auto 0.5 K/mm3 (0.1-0.6); Monocytes Percent Auto 6.2 % (2.6-8.5); Neutrophils Absolute Auto 6.1 K/mm3 (1.3-6.7); Neutrophils Percent Auto 77.9 % (45.5-73.1); Platelet Count Result 269 k/mm3 (150-375); Red Blood Count 4.31 M/mm3 (4.6-6.20); Red Cell Distribution Width 13.8 % (11.5-14.5); White Blood Count 7.9 K/mm3 (4.5-10.0)
[2022-09-02 12:15] LABS: Iron 53 ug/dL (49-181)
[2022-09-02 12:20] LABS: Anion Gap 8 mmol/L (8-16); Blood Urea Nitrogen 12 mg/dL (9-20); Calcium 8.6 mg/dL (8.4-10.2); Carbon Dioxide 31 mmol/L (22-30); Chloride 95 mmol/L (98-107); Estimated Glomerular Filt Rate > 60; Glucose 115 mg/dL (65-110); Potassium 3.8 mmol/L (3.4-5.0); Sodium 134 mmol/L (137-145)
[2022-09-02 12:25] LABS: Percent Iron Saturation 18 % (20-50)
[2022-09-02 13:27] LABS: Folic Acid > 20.0 ng/mL (2.76->20)
== END 2022-09-02 08:04 | disposition home or self-care (01) ==
LOC: ANHLAB 08:05
PROVIDERS: PCP Family Medicine; Visit Provider Internal Medicine Hematology & Oncology
DX: D64.9 Anemia, unspecified (principal)
CPT/HCPCS: 36415; 80048; 82607; 82728; 82746; 83540; 83550; 85025

== ENCOUNTER 2022-11-16 19:57 | Emergency (ER) | payer MEDICARE, SELFPAY ==
[2022-11-16 20:26] VITALS: BP 128/69; PULSE 77; RESP 14; TEMP 36.7; O2SAT 98
[2022-11-16 20:34] LABS: Appearance Urine Turbid (Clear); Bacteria Urine 4+ /hpf; Bilirubin Urine Negative (Negative); Blood Urine 3+ (Negative); Color Urine Yellow (Yellow); Glucose Urine UA Negative (Negative); Ketones Urine Trace mg/dL (Negative); Leukocyte Esterase Ur 3+ LEU/UL (Negative); Nitrate Urine Positive (Negative); Non Pathogenic Casts 0-2; Protein Urine 3+ mg/dL (Negative); RBC Urine >100 /hpf (0-2); Specific Grav Ur 1.016 (1.001-1.035); Squamous Epithelial Cell Urine None seen /hpf (Few); WBC Urine >100 /hpf
[2022-11-16 20:36] LABS: Add Urine Microscopic? YES
--- NOTE | 2022-11-16 20:51 | ED.MALEGU ---
HPI - Male Genitourinary General Chief complaint: Urogenital-Male Stated complaint: CATHETER CLOGGED Time Seen by Provider: 11/16/22 20:41 History of Present Illness HPI Narrative: Patient is an 82-year-old male who presents ER with a clogged urinary catheter. He has been using it for the last month. He has follow-up with urology to have the catheter exchanged. Denies fevers or chills or sweats. No new increase in sediment. He had some lower abdominal discomfort and decreased urination so he came in for evaluation. Ahumada exchanged and 400 mL of urine removed. Related Data Home Medications Medication Instructions Recorded Confirmed cetirizine 10 mg tablet (Zyrtec) 10 mg PO DAILY 07/04/19 05/18/22 multivitamin (Multiple Vitamins 1 tablet PO DAILY 02/29/20 05/18/22 tablet) omeprazole 20 mg capsule,delayed 20 mg PO DAILY 08/05/21 05/18/22 release finasteride 5 mg tablet 5 mg PO DAILY 02/26/22 05/18/22 ferrous sulfate 325 mg (65 mg 65 mg PO TID 05/18/22 05/18/22 iron) tablet (Iron (ferrous sulfate)) mecobalamin (vitamin B12) 1,000 1,000 mcg PO DAILY 05/18/22 05/18/22 mcg chewable tablet Allergies Allergy/AdvReac Type Severity Reaction Status Date / Time neomycin Allergy Mild Rash Verified 10/01/22 10:23 Sulfa (Sulfonamide AdvReac Intermediate Nausea Verified 10/01/22 10:23 Antibiotics) Review of Systems Review of Systems: All systems reviewed & are unremarkable except as noted in HPI and below Constitutional: Constitutional: Denies chills and Denies fever(s) Gastrointestinal: Gastrointestinal: Reports abdominal pain, Denies diarrhea, Denies nausea and Denies vomiting Genitourinary: Genitourinary: Denies hematuria, Reports oliguria, Denies dysuria and Denies testicular pain PMF Past Medical History Medical History Arterial vascular disease Arthritis Chronic anemia Diabetes mellitus with autonomic neuropathy Essential (primary) hypertension Fracture of ankle with nonunion Mixed hyperlipidemia Paroxysmal atrial fibrillation Peripheral autonomic neuropathy due to diabetes mellitus Retained orthopedic hardware Seasonal allergies Traumatic arthritis of right ankle Trimalleolar fracture Type 2 diabetes mellitus without complications Urinary frequency Vision abnormalities Wears glasses Surgical History Surgical History History of prostate biopsy Hx of cholecystectomy Status post open reduction with internal fixation (ORIF) of fracture of ankle Family History Family History Father Diabetes mellitus Hypertension Acute myocardial infarction Cerebrovascular accident Mother Family history of malignant neoplasm Other Breast cancer Social History Social History Social History: Surrogate medical decision maker: Fani Delacruz, spouse. Code status: Full code. Smoking packs per day: 0.5 Smoking cigarettes per day: 10.0 Smoking status: Former smoker Tobacco type: cigarettes Alcohol intake: never Alcohol use details: FEW DRINKS/YEAR Substance use: never Substance use type: does not use Lack of Transportation: No Lack of Food: Never True Current Housing: I Have Housing Concerned About Future Housing: No Difficulty Paying Gas/Electric Bills: No Difficulty Paying for Meds: No Currently Unemployed: No Education: Don't Know Difficulty w/ Childcare or Family Care: No Living arrangements: with family Occupation/Education: retired Spiritual care concerns: No Exam Narrative: GENERAL: Well-appearing, well-nourished, and in no acute distress. HEAD: Normocephalic, atraumatic. EYES: PERRL and EOMI. ABDOMEN: Soft, nontender, nondistended. EXTREMITIES: Normal range of motion. No edema. NEURO: Alert and oriented x3. PSYCH: Swati
[2022-11-16] MEDS: NITROFURANTOIN MONOHYD MACROCR 100 MG CAP PO (21:25)
== END 2022-11-16 21:35 | disposition home or self-care (01) ==
PROVIDERS: Emergency Provider Emergency Medicine; PCP Family Medicine
DX: T83.098A Other mechanical complication of other urinary catheter, initial encounter (principal); N39.0 Urinary tract infection, site not specified; I48.0 Paroxysmal atrial fibrillation; E11.43 Type 2 diabetes mellitus with diabetic autonomic (poly)neuropathy; I10 Essential (primary) hypertension; I77.9 Disorder of arteries and arterioles, unspecified; E78.2 Mixed hyperlipidemia; D64.9 Anemia, unspecified; Z90.49 Acquired absence of other specified parts of digestive tract; Z87.891 Personal history of nicotine dependence; Y84.6 Urinary catheterization as the cause of abnormal reaction of the patient, or of later complication, without mention of misadventure at the time of the procedure; Z79.84 Long term (current) use of oral hypoglycemic drugs
CPT/HCPCS: 51702; 81001; 87077; 87086; 87186; 99283; A9270

== ENCOUNTER 2022-11-23 16:04 | Emergency (ER) | payer MEDICARE, SELFPAY ==
--- NOTE | 2022-11-23 16:10 | ED.MALEGU ---
HPI - Male Genitourinary General Chief complaint: Urogenital-Male Stated complaint: unable to urinate Time Seen by Provider: 11/23/22 16:10 Source: patient Mode of arrival: ambulatory Limitations: no limitations History of Present Illness HPI Narrative: Patient is an 82-year-old male with a history of hypertension, hyperlipidemia, BPH, type 2 diabetes, paroxysmal atrial fibrillation, urinary retention with chronic indwelling Ahumada catheter, presenting to the emergency department for evaluation of Ahumada catheter malfunction. Patient reports Ahumada catheter has not been well draining over the past 2 days. Patient was seen by urologist recently and at this facility last week, with concern for urinary tract infection given white blood cells present in urine however at urology follow-up, patient was instructed not to take the antibiotic. Patient denies any fever, chills, abdominal pain or flank pain. No blood present in his urine. No penile pain or bleeding. No chills or rigors. No nausea or vomiting. Patient's also present at bedside. I spoke with the patient and his directly to obtain the history. Pt urologist is Dr. Siegel. Reviewed the patient's external medical record. Related Data Home Medications Medication Instructions Recorded Confirmed cetirizine 10 mg tablet (Zyrtec) 10 mg PO DAILY 07/04/19 05/18/22 multivitamin (Multiple Vitamins 1 tablet PO DAILY 02/29/20 05/18/22 tablet) omeprazole 20 mg capsule,delayed 20 mg PO DAILY 08/05/21 05/18/22 release finasteride 5 mg tablet 5 mg PO DAILY 02/26/22 05/18/22 ferrous sulfate 325 mg (65 mg 65 mg PO TID 05/18/22 05/18/22 iron) tablet (Iron (ferrous sulfate)) mecobalamin (vitamin B12) 1,000 1,000 mcg PO DAILY 05/18/22 05/18/22 mcg chewable tablet Allergies Allergy/AdvReac Type Severity Reaction Status Date / Time neomycin Allergy Mild Rash Verified 10/01/22 10:23 Sulfa (Sulfonamide AdvReac Intermediate Nausea Verified 10/01/22 10:23 Antibiotics) Review of Systems Review of Systems: CONSTITUTIONAL: Denies fever CARDIOVASCULAR: Denies chest pain RESPIRATORY: Denies cough or dyspnea. GASTROINTESTINAL: Denies abdominal pain SKIN: Denies rash MUSCULOSKELETAL: Denies back pain NEUROLOGIC: Denies headache PMFSH Past Medical History Medical History Arterial vascular disease Arthritis Chronic anemia Diabetes mellitus with autonomic neuropathy Essential (primary) hypertension Fracture of ankle with nonunion Mixed hyperlipidemia Paroxysmal atrial fibrillation Peripheral autonomic neuropathy due to diabetes mellitus Retained orthopedic hardware Seasonal allergies Traumatic arthritis of right ankle Trimalleolar fracture Type 2 diabetes mellitus without complications Urinary frequency Vision abnormalities Wears glasses Surgical History Surgical History History of prostate biopsy Hx of cholecystectomy Status post open reduction with internal fixation (ORIF) of fracture of ankle Family History Family History Father Diabetes mellitus Hypertension Acute myocardial infarction Cerebrovascular accident Mother Family history of malignant neoplasm Other Breast cancer Social History Social History Social History: Surrogate medical decision maker: Fani Delacruz, spouse. Code status: Full code. Smoking packs per day: 0.5 Smoking cigarettes per day: 10.0 Smoking status: Former smoker Tobacco type: cigarettes Alcohol intake: never Alcohol use details: FEW DRINKS/YEAR Substance use: never Substance use type: does not use Lack of Transportation: No Lack of Food: Never True Current Housing: I Have Housing Concerned About Future Housing: No Difficulty Paying Gas/Electric Bills: No Diffi
[2022-11-23 16:17] VITALS: BP 136/95; PULSE 74; RESP 18; TEMP 36.4; O2SAT 99
[2022-11-23 16:42] LABS: Basophils Absolute Auto 0.1 K/mm3 (0.0-0.1); Basophils Percent Auto 0.6 % (0.2-1.2); Eosinophils Absolute Auto 0.1 K/mm3 (0-0.3); Eosinophils Percent Auto 0.8 % (0-4.4); Hemoglobin 12.3 g/dL (14.0-18.0); Immature Granulocyte Absolute 0.02 K/mm3 (0.00-0.031); Immature Granulocyte Percent A 0.3 % (0-0.5); Lymphocytes Absolute Auto 1.02 K/mm3 (0.9-3.2); Lymphocytes Percent Auto 12.9 % (18.3-44.2); Mean Corpuscular HGB Conc 34.2 g/dl (32-36); Mean Corpuscular Hemoglobin 29.4 pg (26-34); Mean Corpuscular Volume 86.1 fl (80-100); Mean Platelet Volume 8.5 fl (7.4-10.4); Monocytes Absolute Auto 0.4 K/mm3 (0.1-0.6); Monocytes Percent Auto 4.4 % (2.6-8.5); Neutrophils Absolute Auto 6.4 K/mm3 (1.3-6.7); Platelet Count Result 313 k/mm3 (150-375); Red Blood Count 4.18 M/mm3 (4.6-6.20); Red Cell Distribution Width 12.8 % (11.5-14.5); White Blood Count 7.9 K/mm3 (4.5-10.0)
[2022-11-23 16:46] LABS: Appearance Urine Clear (Clear); Bacteria Urine None Seen /hpf; Bilirubin Urine Negative (Negative); Blood Urine 3+ (Negative); Color Urine Yellow (Yellow); Glucose Urine UA Negative (Negative); Ketones Urine Negative (Negative); Leukocyte Esterase Ur 1+ LEU/UL (Negative); Nitrate Urine Negative (Negative); Non Pathogenic Casts 0-2; Protein Urine 1+ mg/dL (Negative); RBC Urine >100 /hpf (0-2); Specific Grav Ur 1.013 (1.001-1.035); Squamous Epithelial Cell Urine None seen /hpf (Few); WBC Urine 51-100 /hpf; pH Urine 7.5 (5.0-9.0)
[2022-11-23 16:52] LABS: Anion Gap 12 mmol/L (8-16); Blood Urea Nitrogen 10 mg/dL (9-20); Calcium 8.2 mg/dL (8.4-10.2); Carbon Dioxide 25 mmol/L (22-30); Chloride 90 mmol/L (98-107); Estimated CRCL calculation 77 ml/min; Estimated Glomerular Filt Rate > 60; Glucose 168 mg/dL (65-110); Potassium 3.6 mmol/L (3.4-5.0); Sodium 127 mmol/L (137-145)
[2022-11-23 17:05] LABS: Add Urine Microscopic? YES
== END 2022-11-23 17:30 | disposition home or self-care (01) ==
PROVIDERS: Emergency Provider Emergency Medicine; PCP Family Medicine
DX: T83.098A Other mechanical complication of other urinary catheter, initial encounter (principal); N40.1 Benign prostatic hyperplasia with lower urinary tract symptoms; R33.8 Other retention of urine; I10 Essential (primary) hypertension; I48.0 Paroxysmal atrial fibrillation; E11.43 Type 2 diabetes mellitus with diabetic autonomic (poly)neuropathy; E78.2 Mixed hyperlipidemia; I77.9 Disorder of arteries and arterioles, unspecified; D64.9 Anemia, unspecified; Z90.49 Acquired absence of other specified parts of digestive tract; Z79.84 Long term (current) use of oral hypoglycemic drugs; Y84.6 Urinary catheterization as the cause of abnormal reaction of the patient, or of later complication, without mention of misadventure at the time of the procedure
CPT/HCPCS: 36415; 51702; 80048; 81001; 85025; 87077; 87086; 87186; 99283

== ENCOUNTER 2022-12-24 15:56 | Emergency (ER) | payer MEDICARE, SELFPAY ==
[2022-12-24 16:00] VITALS: BP 136/75; PULSE 78; RESP 20; TEMP 36.4; O2SAT 100
--- NOTE | 2022-12-24 17:07 | ED.GENADULT ---
HPI - General Adult General Chief complaint: Urogenital-Male Stated complaint: Urinary cath clogged Time Seen by Provider: 12/24/22 16:37 Source: patient Mode of arrival: ambulatory Limitations: no limitations History of Present Illness HPI narrative: This is an 82-year-old male who presents to the ED with chief complaint of urinary catheter problems onset just after 1200 today. Patient states the catheter was doing fine earlier today but after lunch And changing the bag he was unable to get anything else out of the catheter. Denies any external drainage. Denies any hematuria or clots. Reports mild discomfort suprapubically but relates this to having a full bladder. Denies any further site of pain. Denies fevers or chills. Related Data Home Medications Medication Instructions Recorded Confirmed cetirizine 10 mg tablet (Zyrtec) 10 mg PO DAILY 07/04/19 05/18/22 multivitamin (Multiple Vitamins 1 tablet PO DAILY 02/29/20 05/18/22 tablet) omeprazole 20 mg capsule,delayed 20 mg PO DAILY 08/05/21 05/18/22 release finasteride 5 mg tablet 5 mg PO DAILY 02/26/22 05/18/22 ferrous sulfate 325 mg (65 mg 65 mg PO TID 05/18/22 05/18/22 iron) tablet (Iron (ferrous sulfate)) mecobalamin (vitamin B12) 1,000 1,000 mcg PO DAILY 05/18/22 05/18/22 mcg chewable tablet Allergies Allergy/AdvReac Type Severity Reaction Status Date / Time neomycin Allergy Mild Rash Verified 10/01/22 10:23 Sulfa (Sulfonamide AdvReac Intermediate Nausea Verified 10/01/22 10:23 Antibiotics) [facility] Past Medical History Medical History Arterial vascular disease Arthritis Chronic anemia Diabetes mellitus with autonomic neuropathy Essential (primary) hypertension Fracture of ankle with nonunion Mixed hyperlipidemia Paroxysmal atrial fibrillation Peripheral autonomic neuropathy due to diabetes mellitus Retained orthopedic hardware Seasonal allergies Traumatic arthritis of right ankle Trimalleolar fracture Type 2 diabetes mellitus without complications Urinary frequency Vision abnormalities Wears glasses Surgical History Surgical History History of prostate biopsy Hx of cholecystectomy Status post open reduction with internal fixation (ORIF) of fracture of ankle Family History Family History Father Diabetes mellitus Hypertension Acute myocardial infarction Cerebrovascular accident Mother Family history of malignant neoplasm Other Breast cancer Social History Social History Social History: Surrogate medical decision maker: Fani Delacruz, spouse. Code status: Full code. Smoking packs per day: 0.5 Smoking cigarettes per day: 10.0 Smoking status: Former smoker Tobacco type: cigarettes Alcohol intake: never Alcohol use details: FEW DRINKS/YEAR Substance use: never Substance use type: does not use Lack of Transportation: No Lack of Food: Never True Current Housing: I Have Housing Concerned About Future Housing: No Difficulty Paying Gas/Electric Bills: No Difficulty Paying for Meds: No Currently Unemployed: No Education: Don't Know Difficulty w/ Childcare or Family Care: No Living arrangements: with family Occupation/Education: retired Spiritual care concerns: No Exam Narrative: GENERAL: Well-appearing, well-nourished, and in no acute distress. HEAD: Normocephalic, atraumatic. EYES: PERRLA and EOMI. ENT: Nares clear, no rhinorrhea or epistaxis. Mucous membranes moist. Oropharynx without tonsillar hypertrophy exudate or other lesions. NECK: Supple. No adenopathy or masses. CHEST: No respiratory distress. Clear to auscultation. No wheezes rales or rhonchi HEART: Regular rate and rhythm. No murmur heard. Normal peripheral pulses. ABDOMEN: Soft, nontender,
--- NOTE | 2022-12-24 17:47 | PC.NURSE ---
Pt with chronic mariee catheter with leg bag presented with obstructed catheter. Pt reports no urine output since noon today and lots of abdominal pressure and pain. RN replaced the catheter. Small blood clot noted, urine with foul odor and cloudy. 450ml urine output with new catheter. Provider updated, UA ordered and sent to lab. Pt reports relief from pain.
[2022-12-24 17:51] LABS: Appearance Urine Cloudy (Clear); Bacteria Urine 1+ /hpf; Bilirubin Urine Negative (Negative); Blood Urine 3+ (Negative); Color Urine Yellow (Yellow); Glucose Urine UA Negative (Negative); Ketones Urine Negative (Negative); Leukocyte Esterase Ur 3+ LEU/UL (Negative); Nitrate Urine Negative (Negative); Non Pathogenic Casts 0-2; Protein Urine 2+ mg/dL (Negative); RBC Urine >100 /hpf (0-2); Specific Grav Ur 1.013 (1.001-1.035); Squamous Epithelial Cell Urine None seen /hpf (Few); WBC Urine >100 /hpf; pH Urine 7.5 (5.0-9.0)
[2022-12-24 17:56] LABS: Add Urine Microscopic? YES
[2022-12-24] MEDS: CEFDINIR 300 MG CAPSULE PO (18:34)
[2022-12-24 18:48] VITALS: BP 126/72; PULSE 70; RESP 16; O2SAT 99
== END 2022-12-24 18:51 | disposition home or self-care (01) ==
PROVIDERS: Emergency Provider Physician Assistant; PCP Family Medicine
DX: T83.098A Other mechanical complication of other urinary catheter, initial encounter (principal); N39.0 Urinary tract infection, site not specified; E11.43 Type 2 diabetes mellitus with diabetic autonomic (poly)neuropathy; E78.2 Mixed hyperlipidemia; I10 Essential (primary) hypertension; I48.0 Paroxysmal atrial fibrillation; I99.9 Unspecified disorder of circulatory system; D64.9 Anemia, unspecified; M19.90 Unspecified osteoarthritis, unspecified site; Z87.891 Personal history of nicotine dependence; Z90.49 Acquired absence of other specified parts of digestive tract; Y84.6 Urinary catheterization as the cause of abnormal reaction of the patient, or of later complication, without mention of misadventure at the time of the procedure; Z79.84 Long term (current) use of oral hypoglycemic drugs
CPT/HCPCS: 51702; 81001; 87077; 87086; 87147; 87181; 87186; 99283; A9270

== ENCOUNTER 2022-12-25 10:40 | Emergency (ER) | payer MEDICARE, SELFPAY ==
[2022-12-25 10:45] VITALS: BP 189/92; PULSE 71; RESP 20; TEMP 36.4; O2SAT 96
[2022-12-25 11:45] VITALS: BP 138/67; PULSE 66; RESP 17; O2SAT 100
--- NOTE | 2022-12-25 11:53 | ED.MALEGU ---
HPI - Male Genitourinary General Chief complaint: Urogenital-Male Stated complaint: mariee not draining Time Seen by Provider: 12/25/22 10:54 History of Present Illness HPI Narrative: 82-year-old male reports for evaluation for urinary retention secondary to a clogged Mariee catheter. Pt states he emptied his bag at 0 800 this a.m. and has not drained since. He noticed blood in the bag once he got to the ED. He reports suprapubic tenderness likely secondary to urinary retention. Denies abdominal pain, nausea or vomiting, fever. He was evaluated yesterday for the same problem, had his Mariee replaced and was discharged home with cefdinir for UTI and primary care follow-up. Related Data Home Medications Medication Instructions Recorded Confirmed cetirizine 10 mg tablet (Zyrtec) 10 mg PO DAILY 07/04/19 05/18/22 multivitamin (Multiple Vitamins 1 tablet PO DAILY 02/29/20 05/18/22 tablet) omeprazole 20 mg capsule,delayed 20 mg PO DAILY 08/05/21 05/18/22 release finasteride 5 mg tablet 5 mg PO DAILY 02/26/22 05/18/22 ferrous sulfate 325 mg (65 mg 65 mg PO TID 05/18/22 05/18/22 iron) tablet (Iron (ferrous sulfate)) mecobalamin (vitamin B12) 1,000 1,000 mcg PO DAILY 05/18/22 05/18/22 mcg chewable tablet Allergies Allergy/AdvReac Type Severity Reaction Status Date / Time neomycin Allergy Mild Rash Verified 12/25/22 10:47 Sulfa (Sulfonamide AdvReac Intermediate Nausea Verified 12/25/22 10:47 Antibiotics) Review of Systems Review of Systems: CONSTITUTIONAL: Denies fever, chills EYES: Denies visual changes, redness, or discharge. ENT: Denies rhinorrhea, congestion, sore throat, or otalgia. CARDIOVASCULAR: Denies chest pain, palpitations, or edema. RESPIRATORY: Denies cough or dyspnea. GASTROINTESTINAL: See HPI GENITOURINARY: See HPI SKIN: Denies rash or itching. MUSCULOSKELETAL: Denies back pain, joint pain, or myalgia. NEUROLOGIC: Denies headache, numbness, dizziness, or weakness. PSYCHIATRIC: Denies anxiety or depression. [facility] Past Medical History Medical History Arterial vascular disease Arthritis Chronic anemia Diabetes mellitus with autonomic neuropathy Essential (primary) hypertension Fracture of ankle with nonunion Mixed hyperlipidemia Paroxysmal atrial fibrillation Peripheral autonomic neuropathy due to diabetes mellitus Retained orthopedic hardware Seasonal allergies Traumatic arthritis of right ankle Trimalleolar fracture Type 2 diabetes mellitus without complications Urinary frequency Vision abnormalities Wears glasses Surgical History Surgical History History of prostate biopsy Hx of cholecystectomy Status post open reduction with internal fixation (ORIF) of fracture of ankle Family History Family History Father Diabetes mellitus Hypertension Acute myocardial infarction Cerebrovascular accident Mother Family history of malignant neoplasm Other Breast cancer Social History Social History Social History: Surrogate medical decision maker: Fani Gower, spouse. Code status: Full code. Smoking packs per day: 0.5 Smoking cigarettes per day: 10.0 Smoking status: Former smoker Tobacco type: cigarettes Alcohol intake: never Alcohol use details: FEW DRINKS/YEAR Substance use: never Substance use type: does not use Lack of Transportation: No Lack of Food: Never True Current Housing: I Have Housing Concerned About Future Housing: No Difficulty Paying Gas/Electric Bills: No Difficulty Paying for Meds: No Currently Unemployed: No Education: Don't Know Difficulty w/ Childcare or Family Care: No Living arrangements: with family Occupation/Education: retired Spiritual care concerns: No Exam Narrativ
[2022-12-25 12:33] VITALS: BP 138/67; PULSE 66; RESP 17; O2SAT 100
== END 2022-12-25 12:31 | disposition home or self-care (01) ==
PROVIDERS: Emergency Provider Physician Assistant; PCP Family Medicine
DX: T83.091A Other mechanical complication of indwelling urethral catheter, initial encounter (principal); E11.9 Type 2 diabetes mellitus without complications; I10 Essential (primary) hypertension; I48.0 Paroxysmal atrial fibrillation; Z87.891 Personal history of nicotine dependence
CPT/HCPCS: 51702; 99283

== ENCOUNTER 2022-12-28 03:15 | Inpatient (IN) | payer MEDICARE, SELFPAY ==
--- NOTE | ~2022-12-28 | CT_ITS ---
Non-contrast CT scan of the Abdomen and Pelvis Clinical indication: Flank pain Technique: 2.5 mm axial scans were obtained through the abdomen and pelvis without intravenous or or al contrast. Dose reduction technique was used on this scan by utilizing automated exposure control a nd iterative reconstruction technique. The dose-length product (DLP) was 496.35 mGy-cm. COMPARISON: 03/14/2022 Findings: Images through the lung bases reveal no abnormalities. There is no evidence of renal or ureteral calculi. The kidneys and the ureters are nondilated. 1.5 cm hyperdense mass along the posterior margin of the left kidney is stable from prior exam, likely hype rdense cyst. The liver, spleen, pancreas, and adrenals appear normal. Cholecystectomy clips are present. There are atherosclerotic calcifications of the aorta. There is no evidence of bowel obstruction. Images through the pelvis were performed. There is no evidence of ascites or lymphadenopathy. Urinary bladder collapsed Ahumada catheter. Prostate gland is markedly enlarged. Impression: Markedly enlarged prostate gland. Probable hyperdense left renal cyst, similar to prior exam. Reviewed, dictated and finalized at location . Impression: Markedly enlarged prostate gland. Probable hyperdense left renal cyst, similar to prior exam.
[2022-12-28 05:05] LABS: Basophils Absolute Auto 0.1 K/mm3 (0.0-0.1); Basophils Percent Auto 0.3 % (0.2-1.2); Eosinophils Percent Auto 0.2 % (0-4.4); Hematocrit 38.8 % (42.0-52.0); Hemoglobin 13.1 g/dL (14.0-18.0); Immature Granulocyte Percent A 0.5 % (0-0.5); Lymphocytes Absolute Auto 0.26 K/mm3 (0.9-3.2); Lymphocytes Percent Auto 1.2 % (18.3-44.2); Mean Corpuscular HGB Conc 33.8 g/dl (32-36); Mean Corpuscular Hemoglobin 29.4 pg (26-34); Mean Corpuscular Volume 87.2 fl (80-100); Mean Platelet Volume 8.7 fl (7.4-10.4); Monocytes Absolute Auto 0.3 K/mm3 (0.1-0.6); Monocytes Percent Auto 1.4 % (2.6-8.5); Neutrophils Absolute Auto 20.1 K/mm3 (1.3-6.7); Neutrophils Percent Auto 96.4 % (45.5-73.1); Platelet Count Result 298 k/mm3 (150-375); Red Blood Count 4.45 M/mm3 (4.6-6.20); Red Cell Distribution Width 12.6 % (11.5-14.5); White Blood Count 20.8 K/mm3 (4.5-10.0)
[2022-12-28 05:06] LABS: Appearance Urine Clear (Clear); Bacteria Urine None Seen /hpf; Bilirubin Urine Negative (Negative); Blood Urine Negative (Negative); Color Urine Yellow (Yellow); Glucose Urine UA Negative (Negative); Ketones Urine Negative (Negative); Leukocyte Esterase Ur Trace LEU/UL (Negative); Nitrate Urine Negative (Negative); Non Pathogenic Casts 0-2; Protein Urine Negative (Negative); RBC Urine 0-2 /hpf (0-2); Specific Grav Ur 1.008 (1.001-1.035); Squamous Epithelial Cell Urine None seen /hpf (Few); Urobilinogen Urine 0.2 mg/dL (<2.0)
[2022-12-28 05:10] LABS: Add Urine Microscopic? YES
[2022-12-28 05:14] LABS: Lactic Acid Reflex 1.6 mmol/L (0.7-2.0)
[2022-12-28 05:16] LABS: Alanine Aminotransferase 23 U/L (6-50); Albumin Level 4.2 g/dL (3.5-5.1); Alkaline Phosphatase 115 U/L (38-126); Anion Gap 5 mmol/L (8-16); Aspartate Amino Transferase 31 U/L (17-59); Bilirubin,Total 0.9 mg/dL (0.2-1.3); Blood Urea Nitrogen 8 mg/dL (9-20); Calcium 8.6 mg/dL (8.4-10.2); Carbon Dioxide 32 mmol/L (22-30); Chloride 88 mmol/L (98-107); Estimated CRCL calculation 68 ml/min; Estimated Glomerular Filt Rate > 60; Glucose 128 mg/dL (65-110); Potassium 3.4 mmol/L (3.4-5.0); Sodium 125 mmol/L (137-145)
--- NOTE | 2022-12-28 05:32 | ED.GENADULT ---
HPI - General Adult General Chief complaint: Unspecified Stated complaint: passing a lot of urine Time Seen by Provider: 12/28/22 04:05 History of Present Illness HPI narrative: Patient is a 82-year-old gentleman who presents the emergency department with a chief complaint of urinary frequency and chills. Patient reports that he has a chronic indwelling Ahumada catheter and is noticed that he has had increased urine output today the patient also reports that he has had chills and just generalized malaise the patient states that his primary provider has started him on Cipro Macrobid and cefdinir the patient reports no vomiting does report that its been several days since he has had a bowel movement Related Data Home Medications Medication Instructions Recorded Confirmed cetirizine 10 mg tablet (Zyrtec) 10 mg PO DAILY 07/04/19 05/18/22 multivitamin (Multiple Vitamins 1 tablet PO DAILY 02/29/20 05/18/22 tablet) omeprazole 20 mg capsule,delayed 20 mg PO DAILY 08/05/21 05/18/22 release finasteride 5 mg tablet 5 mg PO DAILY 02/26/22 05/18/22 ferrous sulfate 325 mg (65 mg 65 mg PO TID 05/18/22 05/18/22 iron) tablet (Iron (ferrous sulfate)) mecobalamin (vitamin B12) 1,000 1,000 mcg PO DAILY 05/18/22 05/18/22 mcg chewable tablet Allergies Allergy/AdvReac Type Severity Reaction Status Date / Time neomycin Allergy Mild Rash Verified 12/25/22 10:47 Sulfa (Sulfonamide AdvReac Intermediate Nausea Verified 12/25/22 10:47 Antibiotics) Review of Systems Review of Systems: A 10 system review of systems was completed on the patient and is negative except for what is stated in the HPI. Nursing and ancillary documentation was reviewed. [facility] Past Medical History Medical History Arterial vascular disease Arthritis Chronic anemia Diabetes mellitus with autonomic neuropathy Essential (primary) hypertension Fracture of ankle with nonunion Mixed hyperlipidemia Paroxysmal atrial fibrillation Peripheral autonomic neuropathy due to diabetes mellitus Retained orthopedic hardware Seasonal allergies Traumatic arthritis of right ankle Trimalleolar fracture Type 2 diabetes mellitus without complications Urinary frequency Vision abnormalities Wears glasses Surgical History Surgical History History of prostate biopsy Hx of cholecystectomy Status post open reduction with internal fixation (ORIF) of fracture of ankle Family History Family History Father Diabetes mellitus Hypertension Acute myocardial infarction Cerebrovascular accident Mother Family history of malignant neoplasm Other Breast cancer Social History Social History Social History: Surrogate medical decision maker: Fani Delacruz, spouse. Code status: Full code. Smoking packs per day: 0.5 Smoking cigarettes per day: 10.0 Smoking status: Former smoker Tobacco type: cigarettes Alcohol intake: never Alcohol use details: FEW DRINKS/YEAR Substance use: never Substance use type: does not use Lack of Transportation: No Lack of Food: Never True Current Housing: I Have Housing Concerned About Future Housing: No Difficulty Paying Gas/Electric Bills: No Difficulty Paying for Meds: No Currently Unemployed: No Education: Don't Know Difficulty w/ Childcare or Family Care: No Living arrangements: with family Occupation/Education: retired Spiritual care concerns: No Exam Narrative: GENERAL: Well-appearing, well-nourished, and in no acute distress. HEAD: Normocephalic, atraumatic. EYES: PERRLA and EOMI. ENT: Nares clear, no rhinorrhea or epistaxis. Mucous membranes moist. NECK: Supple. CHEST: Clear to auscultation. No respiratory distress. HEART: Regular rate and rhythm.
[2022-12-28 06:45] VITALS: BP 144/74; PULSE 96; RESP 16; O2SAT 99
[2022-12-28 06:54] VITALS: BP 124/70; PULSE 92; RESP 15; O2SAT 96
--- NOTE | 2022-12-28 07:37 | ADMGEN ---
This patient, Meliton Delacruz, was admitted to Medical Room 255-. Patient/family oriented to hospital policies and general routines including ID bracelet, bed and alarms, visiting hours, pain management, procedures, bathroom and other care routines, personal items, smoking policy, room service/diet, and visiting hours. Information on how to activate the Rapid Response Team has been discussed. Patient/Family are encouraged to report perceived risks to care and to ask questions if they do not understand what they are told or what they should do.
[2022-12-28] MEDS: SODIUM CHLORIDE 0.9% IV 1,000 ML 125 ML IV CONT ×2 (07:53→17:57)
[2022-12-28 14:00] VITALS: BP 121/62; PULSE 71; RESP 20; TEMP 36.6; O2SAT 97
--- NOTE | 2022-12-28 15:41 | PM.IMHP ---
H&P: HPI History of Present Illness Date/Time: 12/28/22 15:41 Chief Complaint: difficulty passing urine and abdominal pain Narrative: Pt has been using catheter bag since january came in last sat to ED for same problem pt had to have irrigation of catheter then. Pt had intense pain in his abdomen started on iv abx and is feeling better now Pt has pmh of Arterial vascular disease Arthritis Chronic anemia Diabetes mellitus with autonomic neuropathy Essential (primary) hypertension Fracture of ankle with nonunion Mixed hyperlipidemia Paroxysmal atrial fibrillation Pt tried oral abx without any help from PCP. Review of Systems Review of Systems: abdominal pains PMFSH Past Medical History Medical History Arterial vascular disease Arthritis Chronic anemia Diabetes mellitus with autonomic neuropathy Essential (primary) hypertension Fracture of ankle with nonunion Mixed hyperlipidemia Paroxysmal atrial fibrillation Peripheral autonomic neuropathy due to diabetes mellitus Retained orthopedic hardware Seasonal allergies Traumatic arthritis of right ankle Trimalleolar fracture Type 2 diabetes mellitus without complications Urinary frequency Vision abnormalities Wears glasses Surgical History Surgical History History of prostate biopsy Hx of cholecystectomy Status post open reduction with internal fixation (ORIF) of fracture of ankle Family History Family History Father Diabetes mellitus Hypertension Acute myocardial infarction Cerebrovascular accident Mother Family history of malignant neoplasm Other Breast cancer Social History Social History Social History: Surrogate medical decision maker: Fani Delacruz, spouse. Code status: Full code. Smoking packs per day: 0.5 Smoking cigarettes per day: 10.0 Smoking status: Former smoker Alcohol intake: never Alcohol use details: FEW DRINKS/YEAR Substance use: never Substance use type: does not use Lack of Transportation: No Lack of Food: Never True Current Housing: I Have Housing Concerned About Future Housing: No Difficulty Paying Gas/Electric Bills: No Difficulty Paying for Meds: No Currently Unemployed: No Education: Trade/Vocational Certificate Difficulty w/ Childcare or Family Care: No Living arrangements: with family Occupation/Education: retired Spiritual care concerns: No Meds Home Medications and Allergies Home Medications Medication Instructions Recorded Confirmed Type cetirizine 10 mg tablet (Zyrtec) 10 mg PO DAILY 07/04/19 12/28/22 History multivitamin (Multiple Vitamins 1 tablet PO DAILY 02/29/20 12/28/22 History tablet) omeprazole 20 mg capsule,delayed 20 mg PO DAILY 08/05/21 12/28/22 History release atorvastatin 10 mg tablet 10 mg PO HS #90 tabs 01/04/22 12/28/22 Rx finasteride 5 mg tablet 5 mg PO DAILY 02/26/22 12/28/22 History hydrochlorothiazide 25 mg tablet 25 mg PO QAM #90 tabs 04/12/22 12/28/22 Rx ferrous sulfate 325 mg (65 mg 65 mg PO TID 05/18/22 12/28/22 History iron) tablet (Iron (ferrous sulfate)) mecobalamin (vitamin B12) 1,000 1,000 mcg PO DAILY 05/18/22 12/28/22 History mcg chewable tablet amlodipine 5 mg-benazepril 10 mg 1 cap PO DAILY #90 caps 07/27/22 12/28/22 Rx capsule metformin 500 mg tablet 500 mg PO BID #180 tabs 08/17/22 12/28/22 Rx fluticasone propionate 50 1 spray intranasal BID #16 grams 12/02/22 12/28/22 Rx mcg/actuation nasal spray,suspension (Flonase Allergy Relief) Allergies Allergy/AdvReac Type Severity Reaction Status Date / Time neomycin Allergy Mild Rash Verified 12/28/22 07:39 Sulfa (Sulfonamide AdvReac Intermediate Nausea Verified 12/28/22 07:39 Antibiotics) Vital Signs Vital Signs
[2022-12-28] MEDS: FERROUS SULFATE 325 MG TABLET DR PO (16:32)
[2022-12-28 17:39] LABS: Glucose Point of Care 146 mg/dl (65-105)
[2022-12-28] MEDS: FLUTICASONE PROPIONATE 0.05% NA SPR 16 GM BTL (*BKC) 1 SPRAY NASAL (20:04)
[2022-12-28 20:41] VITALS: BP 125/69; PULSE 71; RESP 20; TEMP 36.1; O2SAT 98
[2022-12-28 20:50] VITALS: BMI 26.2
[2022-12-28 21:46] LABS: Glucose Point of Care 151 mg/dl (65-105)
[2022-12-29 00:09] VITALS: PULSE 71; O2SAT 98
[2022-12-29] MEDS: SODIUM CHLORIDE 0.9% IV 1,000 ML 125 ML IV CONT (01:35)
[2022-12-29 04:21] VITALS: BP 162/68; PULSE 68; RESP 20; TEMP 36.4; O2SAT 98
[2022-12-29 05:55] LABS: Estimated CRCL calculation 77 ml/min; Estimated Glomerular Filt Rate > 60
[2022-12-29] MEDS: amLODIPine BESYLATE 5 MG TABLET PO (08:52)
[2022-12-29] MEDS: lisinopriL 10 MG TABLET PO (08:52)
[2022-12-29] MEDS: MULTIVITAMINS THERAPEUTIC TAB (*BKC) 1 TABLET PO (08:52)
[2022-12-29] MEDS: FLUTICASONE PROPIONATE 0.05% NA SPR 16 GM BTL (*BKC) 1 SPRAY NASAL ×2 (08:52→20:29)
[2022-12-29] MEDS: PANTOPRAZOLE 40 MG TABLET PO (08:52)
[2022-12-29] MEDS: FERROUS SULFATE 325 MG TABLET DR PO ×3 (08:52→17:17)
[2022-12-29] MEDS: FINASTERIDE 5 MG TABLET PO (08:53)
[2022-12-29 08:56] LABS: Glucose Point of Care 145 mg/dl (65-105)
[2022-12-29] MEDS: hydroCHLOROthiazide 25 MG TABLET PO (09:17)
[2022-12-29] MEDS: LORATADINE 10 MG TABLET PO (09:17)
[2022-12-29] MEDS: DIPHENHYDRAMINE 1%/ZINC 0.1% CREAM 30 GM TUBE 1 APPLIC TOPICAL ×3 (09:17→20:29)
[2022-12-29 09:36] LABS: Anion Gap 1 mmol/L (8-16); Blood Urea Nitrogen 6 mg/dL (9-20); Calcium 7.9 mg/dL (8.4-10.2); Carbon Dioxide 29 mmol/L (22-30); Chloride 96 mmol/L (98-107); Estimated CRCL calculation 77 ml/min; Estimated Glomerular Filt Rate > 60; Glucose 125 mg/dL (65-110); Potassium 3.2 mmol/L (3.4-5.0); Sodium 126 mmol/L (137-145)
[2022-12-29 09:45] LABS: Hematocrit 32.8 % (42.0-52.0); Mean Corpuscular HGB Conc 33.5 g/dl (32-36); Mean Corpuscular Hemoglobin 28.9 pg (26-34); Mean Corpuscular Volume 86.3 fl (80-100); Mean Platelet Volume 9.2 fl (7.4-10.4); Platelet Count Result 266 k/mm3 (150-375); White Blood Count 8.8 K/mm3 (4.5-10.0)
[2022-12-29 11:07] VITALS: O2SAT 94
--- NOTE | 2022-12-29 12:06 | PM.IMPN ---
Progress Note: A&P Assessment and Plan (1) Urinary tract infection: Code(s): N39.0 - Urinary tract infection, site not specified Status: Acute Assessment and Plan: Await urine culture Pt started with iv rocephin (2) Leukocytosis: Code(s): D72.829 - Elevated white blood cell count, unspecified Status: Acute Assessment and Plan: Wcc much improved from to (3) Hypokalemia: Code(s): E87.6 - Hypokalemia Status: Acute Assessment and Plan: watch potassium levels correct with oral potassium (4) Benign prostatic hyperplasia: Qualifiers: Lower urinary tract symptom presence: symptoms absent Qualified Code(s): N40.0 - Benign prostatic hyperplasia without lower urinary tract symptoms Code(s): N40.0 - Benign prostatic hyperplasia without lower urinary tract symptoms Status: Acute Assessment and Plan: pt has mariee insitu +continue home medications (5) Type 2 diabetes mellitus: Qualifiers: Diabetes mellitus correction insulin use: without correction use Diabetes mellitus complication status: without complication Qualified Code(s): E11.9 - Type 2 diabetes mellitus without complications Code(s): E11.9 - Type 2 diabetes mellitus without complications Status: Chronic Assessment and Plan: accuchecks ssi (6) Hypertension: Qualifiers: Hypertension type: primary hypertension Qualified Code(s): I10 - Essential (primary) hypertension Code(s): I10 - Essential (primary) hypertension Status: Chronic Assessment and Plan: continue home meds (7) Electrolyte abnormality: Code(s): E87.8 - Other disorders of electrolyte and fluid balance, not elsewhere classified Status: Acute Assessment and Plan: Sodium is 126 hydrate gently with fluids watch sodium pt looks slightly dry today encourage oral intake of fluids Plan SCDs for DVT prop Subjective Date/time seen: 12/29/22 12:06 Interval history: Elderly pleasant man admitted with UTI pt has history of urinary retention has catheter in situ Wcc is better pt looks better awaiting UC full report, hopeful DC shyanne Encourage hydration Pt has pmh of Arterial vascular disease Arthritis Chronic anemia Diabetes mellitus with autonomic neuropathy Essential (primary) hypertension Review of Systems Review of Systems: Abdominal pains are better Exam Const: General: cooperative, healthy appearing and overweight; No in distress Nutritional Appearance: overweight Orientation/consciousness: oriented to person HENMT: Head: normal to inspection Resp: Effort & Inspection: no respiratory distress Auscultation: no rhonchi and no wheezes Cardio: Rate: regular rate Rhythm: regular rhythm GI: Inspection: normal to inspection Auscultation: normal bowel sounds Neuro: General: oriented to person Objective Data Vital Signs Vital Signs: Vital Signs - 24 hr 12/28/22 14:00 12/28/22 20:41 12/29/22 00:09 Temperature 36.6 C 36.1 C L Pulse Rate 71 71 71 Respiratory Rate 20 20 Blood Pressure 121/62 125/69 Pulse Oximetry 97 98 98 Oxygen Delivery 12/29/22 04:21 12/29/22 08:45 12/29/22 11:07 Temperature 36.4 C L Pulse Rate 68 Respiratory Rate 20 Blood Pressure 162/68 H Pulse Oximetry 98 94 Oxygen Delivery Room Air Room Air Intake/Output Intake/Output: Intake & Output 12/26/22 12/27/22 12/28/22 12/29/22 23:59 23:59 23:59 23:59 Intake Total 3374 2080 Output Total 3900 2200 Balance -526 -120 Meds/Results Medications: Active Medications Generic Name Dose Route Start Last Admin Trade Name Freq PRN Reason Stop Dose Admin Acetaminophen 650 mg 12/28/22 06:28 Acetaminophen 325 Mg Tablet PO Q4H PRN Mild Pain (1-3) or Fever Amlodipine Besylate 5 mg 12/29/22 09:00 12/29/22 08:52 Amlodipine Besylate 5 Mg Tablet PO 01/28/23 08:59 5 mg DAILY
[2022-12-29] MEDS: SODIUM CHLORIDE 0.9% IV 1,000 ML 70 ML IV CONT (12:19)
[2022-12-29 12:20] LABS: Glucose Point of Care 173 mg/dl (65-105)
[2022-12-29 14:16] VITALS: BP 132/76; PULSE 63; RESP 18; TEMP 36.3; O2SAT 99
[2022-12-29 16:46] LABS: Glucose Point of Care 126 mg/dl (65-105)
[2022-12-29] MEDS: POTASSIUM CHLORIDE 20 MEQ PACKET (FOR LIQUID) PO (17:19)
[2022-12-29 20:55] LABS: Glucose Point of Care 134 mg/dl (65-105)
[2022-12-29 21:36] VITALS: BP 110/54; PULSE 68; RESP 20; TEMP 35.9; O2SAT 99
[2022-12-30 03:56] VITALS: BP 141/57; PULSE 68; RESP 20; TEMP 36.6; O2SAT 98
[2022-12-30] MEDS: SODIUM CHLORIDE 0.9% IV 1,000 ML 70 ML IV CONT (05:34)
[2022-12-30 05:51] LABS: Estimated CRCL calculation 89 ml/min; Estimated Glomerular Filt Rate > 60
[2022-12-30] MEDS: FERROUS SULFATE 325 MG TABLET DR PO (08:12)
[2022-12-30] MEDS: MULTIVITAMINS THERAPEUTIC TAB (*BKC) 1 TABLET PO (08:13)
[2022-12-30] MEDS: hydroCHLOROthiazide 25 MG TABLET PO (08:13)
[2022-12-30] MEDS: FINASTERIDE 5 MG TABLET PO (08:13)
[2022-12-30] MEDS: lisinopriL 10 MG TABLET PO (08:13)
[2022-12-30] MEDS: amLODIPine BESYLATE 5 MG TABLET PO ×2 (08:13→08:14)
[2022-12-30] MEDS: POTASSIUM CHLORIDE 20 MEQ PACKET (FOR LIQUID) PO (08:13)
[2022-12-30] MEDS: PANTOPRAZOLE 40 MG TABLET PO (08:13)
[2022-12-30 08:14] LABS: Glucose Point of Care 117 mg/dl (65-105)
[2022-12-30 09:10] LABS: Anion Gap 5 mmol/L (8-16); Blood Urea Nitrogen 4 mg/dL (9-20); Calcium 7.9 mg/dL (8.4-10.2); Carbon Dioxide 26 mmol/L (22-30); Chloride 98 mmol/L (98-107); Estimated CRCL calculation 89 ml/min; Estimated Glomerular Filt Rate > 60; Glucose 124 mg/dL (65-110); Potassium 3.2 mmol/L (3.4-5.0); Sodium 129 mmol/L (137-145)
--- NOTE | 2022-12-30 10:40 | PM.DS ---
DS: Admitting Diagnosis Discharge Date 12/30/2022 Admitting Diagnosis UTI DS: Discharge Diagnosis Discharge Diagnosis (1) Urinary tract infection: Code(s): N39.0 - Urinary tract infection, site not specified Status: Acute (2) Leukocytosis: Code(s): D72.829 - Elevated white blood cell count, unspecified Status: Acute (3) Type 2 diabetes mellitus: Qualifiers: Diabetes mellitus parts counterman insulin use: without mcc use Diabetes mellitus complication status: without complication Qualified Code(s): E11.9 - Type 2 diabetes mellitus without complications Code(s): E11.9 - Type 2 diabetes mellitus without complications Status: Chronic (4) Hypertension: Qualifiers: Hypertension type: primary hypertension Qualified Code(s): I10 - Essential (primary) hypertension Code(s): I10 - Essential (primary) hypertension Status: Chronic DS: Summary Hospital Course Hospital Course: Elderly pleasant man admitted with UTI. pt has history of urinary retention has catheter in situ Wcc is better pt looks better Encourage hydration Pt has pmh of Arterial vascular disease Arthritis Chronic anemia Diabetes mellitus with autonomic neuropathy Essential (primary) hypertension Patient was started on IV Rocephin. Will discharge home with oral Augmentin Patient has hyponatremia. He is asymptomatic. This is likely secondary to hydrochlorothiazide which we will stop. Monitor BMP as outpatient Patient is clinically stable and is being discharged home Time Spent with Patient Time attestation: Total time spent providing and/or coordinating discharge services: DS: Data Data Completed and Pending Labs on day of discharge: Labs from last 24 hours 12/30/22 12/30/22 12/30/22 08:11 05:31 05:31 Sodium Potassium Chloride Carbon Dioxide Anion Gap BUN Creatinine Estim Creat Clear Calc 89 Estimated GFR > 60 > 60 Glucose 124 H POC Capillary Glucose 117 H Calcium 7.9 L 12/30/22 12/30/22 12/29/22 05:31 05:31 20:33 Sodium 129 L Potassium 3.2 L Chloride 98 Carbon Dioxide 26 Anion Gap 5 L BUN 4 L Creatinine 0.60 L 0.60 L Estim Creat Clear Calc 89 Estimated GFR Glucose POC Capillary Glucose 134 H Calcium 12/29/22 12/29/22 16:36 12:09 Sodium Potassium Chloride Carbon Dioxide Anion Gap BUN Creatinine Estim Creat Clear Calc Estimated GFR Glucose POC Capillary Glucose 126 H 173 H Calcium Preliminary micro results at discharge 12/28/22 06:51 Blood Culture - Preliminary Blood 12/28/22 06:51 Blood Culture - Preliminary Blood Discharge Plan Discharge Discharging Clinician: Orlando Chang Anticipated Discharge Date/Time: 12/30/22 10:37 Patient Disposition: Home, Self-Care Activity: no preference Diet: heart healthy Patient Instructions: Antibiotic Form Stand Alone Forms: General Discharge Information Follow-up/Referrals: Meliton Washburn MD [Primary Care Provider] - Discharge Medications: New ferrous sulfate 325 mg (65 mg iron) Tablet,Delayed Release (Dr/Ec) 325 mg PO DAILY@0800 Qty: 30 0RF amoxicillin-pot clavulanate 875-125 mg tablet 1 tablet PO Q12H Qty: 7 0RF Rx Instructions: Start tonight Continued cetirizine [Zyrtec] 10 mg tablet 10 mg PO DAILY mecobalamin (vitamin B12) 1,000 mcg tablet,chewable 1,000 mcg PO DAILY atorvastatin 10 mg tablet 10 mg PO HS Qty: 90 3RF finasteride 5 mg tablet 5 mg PO DAILY multivitamin [Multiple Vitamins] Tablet 1 tablet PO DAILY omeprazole 20 mg capsule,delayed release(DR/EC) 20 mg PO DAILY amlodipine-benazepril 5-10 mg capsule 1 cap PO DAILY Qty: 90 1RF metformin 500 mg tablet 500 mg PO BID Qty: 180 1RF fluticasone propionate [Flonase Allergy Relief] 50 mcg/actuation spray,suspension 1 spra
== END 2022-12-30 11:25 | disposition home or self-care (01) | DRG 690 ==
LOC: ANHED 06:31 → ANH2MED 06:54
PROVIDERS: Family Medicine; Admitting Provider Internal Medicine; Emergency Provider Emergency Medicine; PCP Family Medicine; Visit Provider Hospitalist
DX: N39.0 Urinary tract infection, site not specified (principal); E87.1 Hypo-osmolality and hyponatremia; D64.9 Anemia, unspecified; E11.43 Type 2 diabetes mellitus with diabetic autonomic (poly)neuropathy; E11.51 Type 2 diabetes mellitus with diabetic peripheral angiopathy without gangrene; E87.6 Hypokalemia; E78.2 Mixed hyperlipidemia; I10 Essential (primary) hypertension; I48.0 Paroxysmal atrial fibrillation; M19.90 Unspecified osteoarthritis, unspecified site; N40.0 Benign prostatic hyperplasia without lower urinary tract symptoms; Z90.49 Acquired absence of other specified parts of digestive tract; Z79.84 Long term (current) use of oral hypoglycemic drugs; Z87.891 Personal history of nicotine dependence
CPT/HCPCS: 36415; 74176; 80048; 80053; 81001; 82565; 82948; 83605; 85025; 85027; 87040; 87086; 96361; 96365; 96366; 96367; 99285; A9270; G0378; J0696; J3370; J7030

== ENCOUNTER 2023-01-03 09:35 | Outpatient (CLI) | payer MEDICARE, SELFPAY ==
[2023-01-03 14:01] LABS: Anion Gap 7 mmol/L (8-16); Blood Urea Nitrogen 11 mg/dL (9-20); Calcium 8.5 mg/dL (8.4-10.2); Carbon Dioxide 30 mmol/L (22-30); Chloride 95 mmol/L (98-107); Estimated Glomerular Filt Rate > 60; Glucose 107 mg/dL (65-110); Potassium 4.2 mmol/L (3.4-5.0); Sodium 132 mmol/L (137-145)
== END 2023-01-03 09:36 | disposition home or self-care (01) ==
LOC: ANHGOSHLAB 09:37
PROVIDERS: PCP Family Medicine; Visit Provider Hospitalist
DX: E87.8 Other disorders of electrolyte and fluid balance, not elsewhere classified (principal)
CPT/HCPCS: 36415; 80048

== ENCOUNTER 2023-01-27 19:11 | Emergency (ER) | payer MEDICARE, SELFPAY ==
[2023-01-27 19:16] VITALS: BP 180/77; PULSE 77; RESP 16; TEMP 36.4; O2SAT 100
--- NOTE | 2023-01-27 20:30 | PC.NURSE ---
Pt reported urethral cath not draining upon arrival to ED. This RN attempted to irrigate catheter, cath would not irrigate. Pt urethral catheter removed and replaced with a coude catheter. New coude cath patent and draining. 800ML urine drained at time of insertion.
[2023-01-27 20:33] LABS: Appearance Urine Cloudy (Clear); Bacteria Urine 4+ /hpf; Bilirubin Urine Negative (Negative); Blood Urine 2+ (Negative); Color Urine Yellow (Yellow); Glucose Urine UA Negative (Negative); Ketones Urine Negative (Negative); Leukocyte Esterase Ur 3+ LEU/UL (Negative); Nitrate Urine Positive (Negative); Non Pathogenic Casts 0-2; Protein Urine 1+ mg/dL (Negative); RBC Urine 21-50 /hpf (0-2); Specific Grav Ur 1.009 (1.001-1.035); Squamous Epithelial Cell Urine None seen /hpf (Few); WBC Urine >100 /hpf; pH Urine 7.5 (5.0-9.0)
[2023-01-27 20:40] LABS: Add Urine Microscopic? YES
--- NOTE | 2023-01-27 20:56 | ED.GENADULT ---
HPI - General Adult General Chief complaint: Urogenital-Male Stated complaint: blocked cath Time Seen by Provider: 01/27/23 19:46 Source: patient Mode of arrival: ambulatory Limitations: no limitations History of Present Illness HPI narrative: This is a 82-year-old male with PMH of chronic Ahumada catheter, BPH, type 2 diabetes who presents to the ED with chief complaint of a possible clogged Ahumada catheter. Patient states that around 1600 he noticed his catheter was not draining and he started having pain. He reports the pain is described as a pressure-like pain in the suprapubic/pelvic area. Does not radiate. Denies any fevers or chills, nausea or vomiting. He states that he tried to drain the catheter without with his this evening and had no success. Denies any hematuria or blood clots. Denies any further complaint. Related Data Home Medications Medication Instructions Recorded Confirmed cetirizine 10 mg tablet (Zyrtec) 10 mg PO DAILY 07/04/19 12/28/22 multivitamin (Multiple Vitamins 1 tablet PO DAILY 02/29/20 12/28/22 tablet) omeprazole 20 mg capsule,delayed 20 mg PO DAILY 08/05/21 12/28/22 release finasteride 5 mg tablet 5 mg PO DAILY 02/26/22 12/28/22 mecobalamin (vitamin B12) 1,000 1,000 mcg PO DAILY 05/18/22 12/28/22 mcg chewable tablet Allergies Allergy/AdvReac Type Severity Reaction Status Date / Time neomycin Allergy Mild Rash Verified 01/05/23 08:37 Sulfa (Sulfonamide AdvReac Intermediate Nausea Verified 01/05/23 08:37 Antibiotics) Review of Systems Review of Systems: All systems as dictated in HPI [facility] Past Medical History Medical History Arterial vascular disease Arthritis Chronic anemia Diabetes mellitus with autonomic neuropathy Essential (primary) hypertension Fracture of ankle with nonunion Mixed hyperlipidemia Paroxysmal atrial fibrillation Peripheral autonomic neuropathy due to diabetes mellitus Retained orthopedic hardware Seasonal allergies Traumatic arthritis of right ankle Trimalleolar fracture Type 2 diabetes mellitus without complications Urinary frequency Vision abnormalities Wears glasses Surgical History Surgical History History of prostate biopsy Hx of cholecystectomy Status post open reduction with internal fixation (ORIF) of fracture of ankle Family History Family History Father Diabetes mellitus Hypertension Acute myocardial infarction Cerebrovascular accident Mother Family history of malignant neoplasm Other Breast cancer Social History Social History Social History: Surrogate medical decision maker: Fani Delacruz, spouse. Code status: Full code. Smoking packs per day: 0.5 Smoking cigarettes per day: 10.0 Smoking status: Former smoker Alcohol intake: never Alcohol use details: FEW DRINKS/YEAR Substance use: never Substance use type: does not use Lack of Transportation: No Lack of Food: Never True Current Housing: I Have Housing Concerned About Future Housing: No Difficulty Paying Gas/Electric Bills: No Difficulty Paying for Meds: No Currently Unemployed: No Education: Trade/Vocational Certificate Difficulty w/ Childcare or Family Care: No Living arrangements: with family Occupation/Education: retired Spiritual care concerns: No Exam Narrative: GENERAL: Well-appearing, well-nourished, and in no acute distress. HEAD: Normocephalic, atraumatic. EYES: PERRLA and EOMI. ENT: Nares clear, no rhinorrhea or epistaxis. Mucous membranes moist. Oropharynx without tonsillar hypertrophy exudate or other lesions. NECK: Supple. No adenopathy or masses. CHEST: No respiratory distress. Clear to auscultation. No wheezes rales or rhonchi HEART: Regular rate and rhythm. No murmur h
[2023-01-27 22:44] VITALS: BP 169/83; PULSE 71; RESP 14; O2SAT 99
== END 2023-01-27 22:46 | disposition home or self-care (01) ==
PROVIDERS: Emergency Provider Physician Assistant; PCP Family Medicine
DX: T83.098A Other mechanical complication of other urinary catheter, initial encounter (principal); E11.43 Type 2 diabetes mellitus with diabetic autonomic (poly)neuropathy; I48.0 Paroxysmal atrial fibrillation; I10 Essential (primary) hypertension; I77.9 Disorder of arteries and arterioles, unspecified; E78.2 Mixed hyperlipidemia; D64.9 Anemia, unspecified; M19.90 Unspecified osteoarthritis, unspecified site; Z87.891 Personal history of nicotine dependence; Z90.49 Acquired absence of other specified parts of digestive tract; Y84.6 Urinary catheterization as the cause of abnormal reaction of the patient, or of later complication, without mention of misadventure at the time of the procedure; Z79.84 Long term (current) use of oral hypoglycemic drugs
CPT/HCPCS: 51702; 81001; 87077; 87086; 87186; 99283

== ENCOUNTER 2023-02-21 13:22 | Emergency (ER) | payer MEDICARE, SELFPAY ==
[2023-02-21 13:26] VITALS: BP 194/83; PULSE 77; RESP 16; TEMP 36.9; O2SAT 100
[2023-02-21 14:44] LABS: Appearance Urine Cloudy (Clear); Bacteria Urine 4+ /hpf; Bilirubin Urine Negative (Negative); Blood Urine 3+ (Negative); Color Urine Yellow (Yellow); Glucose Urine UA Negative (Negative); Ketones Urine Negative (Negative); Leukocyte Esterase Ur 2+ LEU/UL (Negative); Nitrate Urine Negative (Negative); Non Pathogenic Casts 0-2; Protein Urine Trace mg/dL (Negative); RBC Urine >100 /hpf (0-2); Specific Grav Ur 1.009 (1.001-1.035); Squamous Epithelial Cell Urine None seen /hpf (Few); WBC Urine 51-100 /hpf; pH Urine 7.5 (5.0-9.0)
[2023-02-21 14:49] LABS: Add Urine Microscopic? YES
[2023-02-21] MEDS: CEPHALEXIN 500 MG CAPSULE PO (15:04)
--- NOTE | 2023-02-21 15:04 | ED.GENADULT ---
HPI - General Adult General Chief complaint: Urogenital-Male Stated complaint: full bladder Time Seen by Provider: 02/21/23 13:29 History of Present Illness HPI narrative: 80 child male presented to the emergency department for evaluation of a blocked Ahumada catheter. Patient has had an indwelling Ahumada catheter for approximate the last year and does follow-up with urology. Patient states that the Ahumada catheter is draining well this morning but after draining this morning he had increased urinary pressure and noticed the bag was not filling. Patient denies any associated nausea vomiting diarrhea generalized weakness or fevers. Related Data Home Medications Medication Instructions Recorded Confirmed cetirizine 10 mg tablet (Zyrtec) 10 mg PO DAILY 07/04/19 12/28/22 multivitamin (Multiple Vitamins 1 tablet PO DAILY 02/29/20 12/28/22 tablet) omeprazole 20 mg capsule,delayed 20 mg PO DAILY 08/05/21 12/28/22 release finasteride 5 mg tablet 5 mg PO DAILY 02/26/22 12/28/22 mecobalamin (vitamin B12) 1,000 1,000 mcg PO DAILY 05/18/22 12/28/22 mcg chewable tablet Allergies Allergy/AdvReac Type Severity Reaction Status Date / Time neomycin Allergy Mild Rash Verified 01/05/23 08:37 Sulfa (Sulfonamide AdvReac Intermediate Nausea Verified 01/05/23 08:37 Antibiotics) Review of Systems Review of Systems: All systems reviewed & are unremarkable except as noted in HPI and below PMFSH Past Medical History Medical History Arterial vascular disease Arthritis Chronic anemia Diabetes mellitus with autonomic neuropathy Essential (primary) hypertension Fracture of ankle with nonunion Mixed hyperlipidemia Paroxysmal atrial fibrillation Peripheral autonomic neuropathy due to diabetes mellitus Retained orthopedic hardware Seasonal allergies Traumatic arthritis of right ankle Trimalleolar fracture Type 2 diabetes mellitus without complications Urinary frequency Vision abnormalities Wears glasses Surgical History Surgical History History of prostate biopsy Hx of cholecystectomy Status post open reduction with internal fixation (ORIF) of fracture of ankle Family History Family History Father Diabetes mellitus Hypertension Acute myocardial infarction Cerebrovascular accident Mother Family history of malignant neoplasm Other Breast cancer Social History Social History Social History: Surrogate medical decision maker: Fani Delacruz, spouse. Code status: Full code. Smoking packs per day: 0.5 Smoking cigarettes per day: 10.0 Smoking status: Former smoker Alcohol intake: never Alcohol use details: FEW DRINKS/YEAR Substance use: never Substance use type: does not use Lack of Transportation: No Lack of Food: Never True Current Housing: I Have Housing Concerned About Future Housing: No Difficulty Paying Gas/Electric Bills: No Difficulty Paying for Meds: No Currently Unemployed: No Education: Trade/Vocational Certificate Difficulty w/ Childcare or Family Care: No Living arrangements: with family Occupation/Education: retired Spiritual care concerns: No Exam Narrative: APPEARANCE: Well appearing, no pain, no distress, well-nourished. HEAD: normocephalic, atraumatic. EYES: PERRLA/EOMI, conjunctivae clear. NOSE: Normal no drainage NECK: Supple. No adenopathy, no masses. RESPIRATORY: Airway patent, respirations nonlabored. Clear to auscultation bilaterally, no rales, rhonchi, wheezing. CARDIOVASCULAR: Regular rate and rhythm without murmurs rubs or gallops. ABDOMINAL: Soft, nontender, nondistended, normal bowel sounds MUSCULOSKELETAL: Moves all extremities. Strength/ROM intact, No edema, No calf tenderness. NEURO: Alert. Cranial nerves II through XII intact.
[2023-02-21 15:45] VITALS: BP 146/80; PULSE 82; RESP 20; O2SAT 98
== END 2023-02-21 15:47 | disposition home or self-care (01) ==
PROVIDERS: Emergency Provider Emergency Medicine; PCP Family Medicine
DX: R82.998 Other abnormal findings in urine (principal); T83.091A Other mechanical complication of indwelling urethral catheter, initial encounter; E11.9 Type 2 diabetes mellitus without complications; I10 Essential (primary) hypertension; I48.91 Unspecified atrial fibrillation; M19.90 Unspecified osteoarthritis, unspecified site
CPT/HCPCS: 51702; 81001; 87077; 87086; 87186; 99283; A9270

== ENCOUNTER 2023-02-27 21:11 | Emergency (ER) | payer MEDICARE, SELFPAY ==
[2023-02-27 21:17] VITALS: BP 179/76; PULSE 84; RESP 16; TEMP 36.8; O2SAT 98
--- NOTE | 2023-02-27 21:45 | ED.MALEGU ---
HPI - Male Genitourinary General Chief complaint: Urogenital-Male Stated complaint: catheter not draining, bladder pain Time Seen by Provider: 02/27/23 21:31 History of Present Illness HPI Narrative: Patient presents to the emergency department with Ahumada obstruction. This is happened multiple times in the past. Once Ahumada is replaced urine flows freely. He is followed by urology. Nurse replace Ahumada and he has now having normal urine flow without clots. He is very pleasant. Accompanied by his . She contributes to the history. Exam is grossly benign. Related Data Home Medications Medication Instructions Recorded Confirmed cetirizine 10 mg tablet (Zyrtec) 10 mg PO DAILY 07/04/19 12/28/22 multivitamin (Multiple Vitamins 1 tablet PO DAILY 02/29/20 12/28/22 tablet) omeprazole 20 mg capsule,delayed 20 mg PO DAILY 08/05/21 12/28/22 release finasteride 5 mg tablet 5 mg PO DAILY 02/26/22 12/28/22 mecobalamin (vitamin B12) 1,000 1,000 mcg PO DAILY 05/18/22 12/28/22 mcg chewable tablet Allergies Allergy/AdvReac Type Severity Reaction Status Date / Time neomycin Allergy Mild Rash Verified 01/05/23 08:37 Sulfa (Sulfonamide AdvReac Intermediate Nausea Verified 01/05/23 08:37 Antibiotics) Review of Systems Review of Systems: Review of systems negative except for what is documented in the [facility] Past Medical History Medical History Arterial vascular disease Arthritis Chronic anemia Diabetes mellitus with autonomic neuropathy Essential (primary) hypertension Fracture of ankle with nonunion Mixed hyperlipidemia Paroxysmal atrial fibrillation Peripheral autonomic neuropathy due to diabetes mellitus Retained orthopedic hardware Seasonal allergies Traumatic arthritis of right ankle Trimalleolar fracture Type 2 diabetes mellitus without complications Urinary frequency Vision abnormalities Wears glasses Surgical History Surgical History History of prostate biopsy Hx of cholecystectomy Status post open reduction with internal fixation (ORIF) of fracture of ankle Family History Family History Father Diabetes mellitus Hypertension Acute myocardial infarction Cerebrovascular accident Mother Family history of malignant neoplasm Other Breast cancer Social History Social History Social History: Surrogate medical decision maker: Fani Delacruz, spouse. Code status: Full code. Smoking packs per day: 0.5 Smoking cigarettes per day: 10.0 Smoking status: Former smoker Alcohol intake: never Alcohol use details: FEW DRINKS/YEAR Substance use: never Substance use type: does not use Lack of Transportation: No Lack of Food: Never True Current Housing: I Have Housing Concerned About Future Housing: No Difficulty Paying Gas/Electric Bills: No Difficulty Paying for Meds: No Currently Unemployed: No Education: Trade/Vocational Certificate Difficulty w/ Childcare or Family Care: No Living arrangements: with family Occupation/Education: retired Spiritual care concerns: No Exam Narrative: GENERAL: Well-appearing, well-nourished, and in no acute distress. HEAD: Normocephalic, atraumatic. ENT: Nares clear, no rhinorrhea or epistaxis. Mucous membranes moist. NECK: Normal ROM CHEST: No respiratory distress. EXTREMITIES: Normal range of motion. SKIN: Warm, dry, no rash. NEURO: No focal deficits. Alert and oriented x3. PSYCH: Normal mood and affect. Course Course Emergency Course: Exam benign Ahumada replaced Vital signs stable with mild hypertension We will refer to urology Vital Signs Vital signs: Vital Signs Temperature 36.8 C 02/27/23 21:17 Pulse Rate 84 02/27/23 21:17 Respiratory Rate 16 02/27/23 21:17 Blood Pr
--- NOTE | 2023-02-27 22:05 | PC.NURSE ---
Pt arrived to ED with mariee catheter in place. Catheter had not drained for past 5 hours. This RN attempted to irrigate cath, this was unsuccessful. per verbal order read back pts cath replaced with new mariee cath. Pt left this ED with cath in place and draining.
== END 2023-02-27 22:09 | disposition home or self-care (01) ==
PROVIDERS: Emergency Provider Emergency Medicine; PCP Family Medicine
DX: R33.9 Retention of urine, unspecified (principal); T83.091A Other mechanical complication of indwelling urethral catheter, initial encounter; M19.90 Unspecified osteoarthritis, unspecified site; D64.9 Anemia, unspecified; E11.9 Type 2 diabetes mellitus without complications; I10 Essential (primary) hypertension; I48.91 Unspecified atrial fibrillation
CPT/HCPCS: 51702; 99283

== ENCOUNTER 2023-03-03 08:59 | Outpatient (CLI) | payer MEDICARE, SELFPAY ==
[2023-03-03 09:21] LABS: Basophils Absolute Auto 0.1 K/mm3 (0.0-0.1); Basophils Percent Auto 0.4 % (0.2-1.2); Eosinophils Absolute Auto 0.4 K/mm3 (0-0.3); Eosinophils Percent Auto 2.5 % (0-4.4); Hematocrit 37.9 % (42.0-52.0); Hemoglobin 12.5 g/dL (14.0-18.0); Immature Granulocyte Absolute 0.06 K/mm3 (0.00-0.031); Immature Granulocyte Percent A 0.4 % (0-0.5); Lymphocytes Absolute Auto 0.56 K/mm3 (0.9-3.2); Lymphocytes Percent Auto 3.3 % (18.3-44.2); Mean Corpuscular Hemoglobin 29.3 pg (26-34); Monocytes Absolute Auto 0.6 K/mm3 (0.1-0.6); Monocytes Percent Auto 3.2 % (2.6-8.5); Neutrophils Absolute Auto 15.3 K/mm3 (1.3-6.7); Neutrophils Percent Auto 90.2 % (45.5-73.1); Platelet Count Result 321 k/mm3 (150-375); Red Blood Count 4.26 M/mm3 (4.6-6.20); Red Cell Distribution Width 12.6 % (11.5-14.5); White Blood Count 16.9 K/mm3 (4.5-10.0)
[2023-03-03 10:49] LABS: Iron 39 ug/dL (49-181)
[2023-03-03 10:51] LABS: Alanine Aminotransferase 19 U/L (6-50); Alkaline Phosphatase 100 U/L (38-126); Anion Gap 8 mmol/L (8-16); Aspartate Amino Transferase 23 U/L (17-59); Bilirubin,Total 0.6 mg/dL (0.2-1.3); Blood Urea Nitrogen 11 mg/dL (9-20); Calcium 8.8 mg/dL (8.4-10.2); Carbon Dioxide 30 mmol/L (22-30); Chloride 96 mmol/L (98-107); Estimated Glomerular Filt Rate > 60; Glucose 146 mg/dL (65-110); Potassium 3.9 mmol/L (3.4-5.0); Sodium 134 mmol/L (137-145)
[2023-03-03 10:59] LABS: Percent Iron Saturation 15 % (20-50)
== END 2023-03-03 09:00 | disposition home or self-care (01) ==
LOC: ANHLAB 09:02
PROVIDERS: PCP Family Medicine; Visit Provider Internal Medicine Hematology & Oncology
DX: D64.9 Anemia, unspecified (principal)
CPT/HCPCS: 36415; 80053; 82728; 83540; 83550; 85025

== ENCOUNTER 2023-04-01 14:59 | Emergency (ER) | payer MEDICARE, SELFPAY ==
--- NOTE | ~2023-04-01 | XR_ITS ---
XR chest 2V 04/01/2023 16:17 Indication: Chest congestion Procedure: PA and lateral views of the chest Comparison: 02/21/2022 Findings: Heart size normal. No focal air space disease, pulmonary edema, pleural effusion or suspect ed pneumothorax. Impression: 1: No acute cardiopulmonary disease. Reviewed, dictated and finalized at location A. Impression: 1: No acute cardiopulmonary disease.
[2023-04-01 15:08] VITALS: BP 146/81; PULSE 83; RESP 16; TEMP 36.9; O2SAT 99
--- NOTE | 2023-04-01 15:18 | ECG_ITS ---
Measurements Intervals [place] Rate: 77 P: 38 NE: 152 QRS: -15 QRSD: 96 T: 60 QT: 395 QTc: 449 Interpretive Statements SINUS RHYTHM WITH OCCASIONAL SUPRAVENTRICULAR PREMATURE COMPLEXES NONSPECIFIC ST & T-WAVE ABNORMALITY Electronically Signed On 04-02-2023 17:07:23 CDT by Ugo Guevara M.D.
--- NOTE | 2023-04-01 15:25 | ED.CHESTPAIN ---
HPI - Chest Pain General Chief Complaint: Chest Pain Stated Complaint: CHEST TIGHTNESS Source: patient Mode of arrival: ambulatory Limitations: no limitations History of Present Illness HPI narrative: 82 y/o male with hx thoracic aortic aneurysm, DM, HTN presented for c/o left lower anterior chest pain, intermittent since this morning. States the pain is hard to describe, somewhat sharp, and resolves quickly. Pt cannot recreate pain, denies radiating pain to neck, jaw, back, denies nausea, dizziness, palpitations. No recent illness. Pt's mentioned stress since their son unexpectedly last [place], and has issues with daughter in law, who they will be seeing today. Not taking anything for pain. Related Data Home Medications Medication Instructions Recorded Confirmed cetirizine 10 mg tablet (Zyrtec) 10 mg PO DAILY 07/04/19 04/01/23 multivitamin (Multiple Vitamins 1 tablet PO DAILY 02/29/20 04/01/23 tablet) omeprazole 20 mg capsule,delayed 20 mg PO DAILY 08/05/21 04/01/23 release finasteride 5 mg tablet 5 mg PO DAILY 02/26/22 04/01/23 mecobalamin (vitamin B12) 1,000 1,000 mcg PO DAILY 05/18/22 04/01/23 mcg chewable tablet Allergies Allergy/AdvReac Type Severity Reaction Status Date / Time neomycin Allergy Mild Rash Verified 04/01/23 15:47 Sulfa (Sulfonamide AdvReac Intermediate Nausea Verified 04/01/23 15:47 Antibiotics) Review of Systems Review of Systems: CONSTITUTIONAL: Denies body aches, fever, chills, or sweats. EYES: Denies visual changes, redness, or discharge. ENT: Denies rhinorrhea, congestion, sore throat, or otalgia. CARDIOVASCULAR: Reports left lower chest pains, Denies palpitations, or edema. RESPIRATORY: Denies cough or dyspnea. GASTROINTESTINAL: Denies abdominal pain, nausea, vomiting, or diarrhea. GENITOURINARY: Denies dysuria or hematuria. SKIN: Denies rash, itching, or wounds. MUSCULOSKELETAL: Denies back pain, joint pain, or myalgia. NEUROLOGIC: Denies headache, numbness, tingling, or weakness. All systems reviewed & are unremarkable except as noted in HPI and below PMFSH Past Medical History Medical History Arterial vascular disease Arthritis Chronic anemia Diabetes mellitus with autonomic neuropathy Essential (primary) hypertension Fracture of ankle with nonunion Mixed hyperlipidemia Paroxysmal atrial fibrillation Peripheral autonomic neuropathy due to diabetes mellitus Retained orthopedic hardware Seasonal allergies Traumatic arthritis of right ankle Trimalleolar fracture Type 2 diabetes mellitus without complications Urinary frequency Vision abnormalities Wears glasses Surgical History Surgical History History of prostate biopsy Hx of cholecystectomy Status post open reduction with internal fixation (ORIF) of fracture of ankle Family History Family History Father Diabetes mellitus Hypertension Acute myocardial infarction Cerebrovascular accident Mother Family history of malignant neoplasm Other Breast cancer Social History Social History Social History: Surrogate medical decision maker: Fani Delacruz, spouse. Code status: Full code. Smoking packs per day: 0.5 Smoking cigarettes per day: 10.0 Smoking status: Former smoker Alcohol intake: never Alcohol use details: FEW DRINKS/YEAR Substance use: never Substance use type: does not use Lack of Transportation: No Lack of Food: Never True Current Housing: I Have Housing Concerned About Future Housing: No Difficulty Paying Gas/Electric Bills: No Difficulty Paying for Meds: No Currently Unemployed: No Education: Trade/Vocational Certificate Difficulty w/ Childcare or Family Care: No Living arrangements: with family Occupation/Education: re
== END 2023-04-01 16:44 | disposition home or self-care (01) ==
PROVIDERS: Emergency Provider Nurse Practitioner Family; PCP Family Medicine
DX: R07.89 Other chest pain (principal); E11.9 Type 2 diabetes mellitus without complications; I10 Essential (primary) hypertension; E78.2 Mixed hyperlipidemia; I48.0 Paroxysmal atrial fibrillation; Z79.899 Other long term (current) drug therapy; Z87.891 Personal history of nicotine dependence
CPT/HCPCS: 71046; 93005; 99213; G0463

== ENCOUNTER 2023-04-15 04:31 | Observation (INO) | payer MEDICARE, SELFPAY ==
[2023-04-15] VITALS (16 sets, daily range): BP systolic 126–209; BP diastolic 43–99; PULSE 56–81; RESP 11–27; TEMP 36.6–37.2; O2SAT 94–100; BMI 25.0
--- NOTE | ~2023-04-15 | US_ITS ---
EXAMINATION: US renal BI DATE: 04/16/2023 12:32 INDICATION: GROSS HEMATURIA TECHNIQUE: Multiple grayscale and Doppler ultrasound images of the kidneys were obtained. COMPARISON: CT abdomen pelvis 12/28/2022; MR abdomen 02/11/2022. FINDINGS: The right kidney measures 9.4 x 3.8 x 4.6 cm. The left kidney measures 11.1 x 5.4 x 5.1 cm. The infer ior pole of the right kidney was incompletely visualized. The kidneys demonstrate normal parenchymal echogenicity. Mixed echogenicity 1.5 cm left renal cyst There is no hydronephrosis. The bladder is de compressed by Ahumada catheter. IMPRESSION: Mixed echogenicity left posterior midpole mass corresponding to a hemorrhagic/proteinaceous cyst as d etermined by prior MR abdomen. Incompletely visualized right inferior pole. Reviewed, dictated and finalized at location K. IMPRESSION: Mixed echogenicity left posterior midpole mass corresponding to a hemorrhagic/p roteinaceous cyst as determined by prior MR abdomen. Incompletely visualized right inferior pole.
--- NOTE | 2023-04-15 05:37 | ED.MALEGU ---
HPI - Male Genitourinary General Chief complaint: Urogenital-Male <Demetris Khalil DO - Last Filed: 04/15/23 07:26> Stated complaint: blood in urine <Demetris Khalil DO - Last Filed: 04/15/23 07:26> Time Seen by Provider: 04/15/23 04:58 <Demetris Khalil DO - Last Filed: 04/15/23 07:26> Source: patient <Demetris Khalil DO - Last Filed: 04/15/23 07:26> Limitations: no limitations <Demetris Khalil DO - Last Filed: 04/15/23 07:26> History of Present Illness HPI Narrative: Patient is an 83-year-old male present to the emergency department complaining of blood in his urine. Patient states he noticed blood in his urine last night and then again today and he emptied his Ahumada bag this morning and that it reaccumulated with gross blood again prompting him to come in for further evaluation. Patient also notes that he started to have some suprapubic discomfort as well this morning. Patient notes that he has had a chronic urethral Ahumada catheter in place since last January and he changes it once a month and he last changed his catheter approximately 3 weeks ago and is due for another change on Tuesday. Patient admits to seeing urology in the past. Patient denies history of kidney stones. Patient denies vomiting, diarrhea, difficulty having bowel movements, fever, recent injuries, recent illness, chest pain, shortness of breath, lightheadedness. Patient has not tried any thing for his suprapubic discomfort. Patient denies use of blood thinners. Patient denies any antibiotic use currently. <Demetris Khalil DO - Last Filed: 04/15/23 07:26> Related Data Home medications: Home Medications Medication Instructions Recorded Confirmed cetirizine 10 mg tablet (Zyrtec) 10 mg PO DAILY 07/04/19 04/15/23 multivitamin (Multiple Vitamins 1 tablet PO DAILY 02/29/20 04/15/23 tablet) omeprazole 20 mg capsule,delayed 20 mg PO DAILY 08/05/21 04/15/23 release finasteride 5 mg tablet 5 mg PO DAILY 02/26/22 04/15/23 mecobalamin (vitamin B12) 1,000 1,000 mcg PO DAILY 05/18/22 04/15/23 mcg chewable tablet ascorbate calcium (vitamin C) 500 500 mg PO DAILY 04/15/23 04/15/23 mg tablet hyoscyamine sulfate 0.125 mg 0.125 mg sublingual Q6H PRN 04/15/23 04/15/23 sublingual tablet Bladder Spasms oxybutynin chloride 5 mg 5 mg PO DAILY 04/15/23 04/15/23 tablet,extended release 24 hr <Demetris Khalil, - Last Filed: 04/15/23 07:26> Allergies/Adverse reactions: Allergies Allergy/AdvReac Type Severity Reaction Status Date / Time neomycin Allergy Mild Rash Verified 04/15/23 05:28 Sulfa (Sulfonamide AdvReac Intermediate Nausea Verified 04/15/23 05:28 Antibiotics) <Demetris Khalil, - Last Filed: 04/15/23 07:26> Review of Systems Review of Systems: A 10 system review of systems was completed on the patient and is negative except for what is stated in the HPI. Nursing and ancillary documentation was reviewed. <Demetris Khalil, - Last Filed: 04/15/23 07:26> [facility] Past Medical History Medical History: Medical History Arterial vascular disease Arthritis Chronic anemia Diabetes mellitus with autonomic neuropathy Essential (primary) hypertension Fracture of ankle with nonunion Mixed hyperlipidemia Paroxysmal atrial fibrillation Peripheral autonomic neuropathy due to diabetes mellitus Retained orthopedic hardware Seasonal allergies Traumatic arthritis of right ankle Trimalleolar fracture Type 2 diabetes mellitus without complications Urinary frequency Vision abnormalities Wears glasses <Demetris Khalil, - Last Filed: 04/15/23 07:26> Surgical History Surgical History: Surgical History History of prostate biopsy Hx of cholecystectomy Status post open reduction with internal fixation (ORIF) of fracture of ankle <Demetris Khalil
[2023-04-15] MEDS: ACETAMINOPHEN 500 MG TABLET 1000 MG PO (06:19)
[2023-04-15 06:42] LABS: Basophils Absolute Auto 0.1 K/mm3 (0.0-0.1); Basophils Percent Auto 0.6 % (0.2-1.2); Eosinophils Absolute Auto 0.1 K/mm3 (0-0.3); Eosinophils Percent Auto 0.7 % (0-4.4); Hematocrit 41.4 % (42.0-52.0); Hemoglobin 13.3 g/dL (14.0-18.0); Immature Granulocyte Absolute 0.04 K/mm3 (0.00-0.031); Immature Granulocyte Percent A 0.5 % (0-0.5); Lymphocytes Absolute Auto 0.93 K/mm3 (0.9-3.2); Lymphocytes Percent Auto 10.8 % (18.3-44.2); Mean Corpuscular HGB Conc 32.1 g/dl (32-36); Mean Corpuscular Hemoglobin 28.5 pg (26-34); Mean Corpuscular Volume 88.8 fl (80-100); Mean Platelet Volume 9.4 fl (7.4-10.4); Monocytes Absolute Auto 0.4 K/mm3 (0.1-0.6); Monocytes Percent Auto 4.6 % (2.6-8.5); Neutrophils Absolute Auto 7.1 K/mm3 (1.3-6.7); Neutrophils Percent Auto 82.8 % (45.5-73.1); Platelet Count Result 334 k/mm3 (150-375); Red Blood Count 4.66 M/mm3 (4.6-6.20); Red Cell Distribution Width 13.2 % (11.5-14.5); White Blood Count 8.6 K/mm3 (4.5-10.0)
[2023-04-15 06:52] LABS: Alanine Aminotransferase 18 U/L (6-50); Albumin Level 4.5 g/dL (3.5-5.1); Alkaline Phosphatase 120 U/L (38-126); Anion Gap 8 mmol/L (8-16); Aspartate Amino Transferase 27 U/L (17-59); Bilirubin,Total 0.6 mg/dL (0.2-1.3); Blood Urea Nitrogen 12 mg/dL (9-20); Calcium 9.1 mg/dL (8.4-10.2); Carbon Dioxide 30 mmol/L (22-30); Chloride 96 mmol/L (98-107); Creatine Kinase 68 U/L (55-170); Estimated CRCL calculation 76 ml/min; Estimated Glomerular Filt Rate > 60; Glucose 139 mg/dL (65-110); Potassium 3.7 mmol/L (3.4-5.0); Sodium 134 mmol/L (137-145)
[2023-04-15 06:54] LABS: INR 0.9; Prothrombin Time 12.6 Seconds (11.1-14.7)
[2023-04-15 06:55] LABS: Partial Thromboplastin Time 29.5 SECONDS (22.3-36.8)
[2023-04-15 07:06] LABS: Appearance Urine Turbid (Clear); Color Urine Red (Yellow)
--- NOTE | 2023-04-15 07:09 | PC.NURSE ---
Report given to GIACOMO Mcdonald at this time.
[2023-04-15 07:15] LABS: Bacteria Urine Rare /hpf; Need Manual Microscopic Reviewed; Non Pathogenic Casts 0-2; Squamous Epithelial Cell Urine None seen /hpf (Few); WBC Urine >100 /hpf
[2023-04-15 07:18] LABS: RBC Urine >100 /hpf (0-2)
[2023-04-15 07:47] LABS: Add Urine Microscopic? YES
[2023-04-15 10:24] LABS: Hemoglobin 11.4 g/dL (14.0-18.0)
[2023-04-15 11:52] LABS: Glucose Point of Care 160 mg/dl (65-105)
--- NOTE | 2023-04-15 15:02 | PM.IMHP ---
H&P: HPI History of Present Illness Date/Time: 04/15/23 16:15 Chief Complaint: Blood in urine. 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 The patient provides the following history. He has a chronic catheter in place and has biweekly to monthly changes with history of frequently clot catheters. His irrigates the catheter at home to prevent clogging. Yesterday he developed some blood in the catheter and that was flushed with improvement. Overnight however he once again started to bleed and he had empty his catheter bag 2 time due to a large amount of output. Early this morning he developed discomfort in the suprapubic region and noticed that the catheter had stopped draining. Three-way Ahumada catheter was inserted and he has been started on CBI with some clearing of his urine already. Hemoglobin and hematocrit have dropped since arrival but have remained stable. He has no complaints and denies fever, chills, sweats, abdominal pain, back pain, nausea, and vomiting. Review of Systems Review of Systems: Twelve systems were reviewed and are negative except for as per HPI. FORMERLY [facility], [facility] Past Medical History Medical History Arterial vascular disease Arthritis Chronic anemia Diabetes mellitus with autonomic neuropathy Essential (primary) hypertension Fracture of ankle with nonunion Mixed hyperlipidemia Paroxysmal atrial fibrillation Peripheral autonomic neuropathy due to diabetes mellitus Retained orthopedic hardware Seasonal allergies Traumatic arthritis of right ankle Trimalleolar fracture Type 2 diabetes mellitus without complications Urinary frequency Vision abnormalities Wears glasses Surgical History Surgical History History of prostate biopsy Hx of cholecystectomy Status post open reduction with internal fixation (ORIF) of fracture of ankle Family History Family History Father Diabetes mellitus Hypertension Acute myocardial infarction Cerebrovascular accident Mother Family history of malignant neoplasm Other Breast cancer Social History Social History Social History: Surrogate medical decision maker: Fani [place], spouse. Code status: Full code. Smoking packs per day: 0.5 Smoking cigarettes per day: 10.0 Smoking status: Former smoker Alcohol intake: never Alcohol use details: FEW DRINKS/YEAR Substance use: never Substance use type: does not use Lack of Transportation: No Lack of Food: Never True Current Housing: I Have Housing Concerned About Future Housing: No Difficulty Paying Gas/Electric Bills: No Difficulty Paying for Meds: No Currently Unemployed: No Education: Trade/Vocational Certificate Difficulty w/ Childcare or Family Care: No Living arrangements: with family Occupation/Education: retired Spiritual care concerns: No Meds Home Medications and Allergies Home Medications Medication Instructions Recorded Confirmed Type cetirizine 10 mg tablet (Zyrtec) 10 mg PO DAILY 07/04/19 04/15/23 History multivitamin (Multiple Vitamins 1 tablet PO DAILY 02/29/20 04/15/23 History tablet) omeprazole 20 mg capsule,delayed 20 mg PO DAILY 08/05/21 04/15/23 History release finasteride 5 mg tablet 5 mg PO DAILY 02/26/22 04/15/23 History mecobalamin (vitamin B12) 1,000 1,000 mcg PO DAILY 05/18/22 04/15/23 History mcg chewable tablet fluticasone propionate 50 1 spray intranasal BID #16 grams 12/02/22 04/15/23 Rx mcg/actuation nasal spray,suspension (Flonas
--- NOTE | 2023-04-15 15:38 | WPDURCON ---
Assessment and Plan Assessment and plan (1) Enlarged prostate without lower urinary tract symptoms (luts): Code(s): N40.0 - Benign prostatic hyperplasia without lower urinary tract symptoms Status: Acute Assessment and Plan: Continue Finasteride. Continue bi-weekly or monthly mariee changes. (2) Hematuria: Code(s): R31.9 - Hematuria, unspecified Status: Acute Assessment and Plan: Continue CBI until clear then wean to off. Ok to restart CBI if bleeding returns. Get a ROCAEL to ensure no clots are visible d/t suprapubic tenderness, no bladder distention noted. Urine culture pending, I suggest antibiotic therapy. Urology Consult Note HPI Date Seen: 04/15/23 Time Seen: 15:38 Requesting Physician: Sherine Simpson MD Primary Care Provider: Meliton Washburn MD Consult Narrative Reason for consult: Gross Hematuria Narrative: Meliton Delacruz is a 83 year old male who is a chronic catheter patient of ours in the office. He has bi-weekly to monthly changes and freqeuently clogged catheters. His irrigates his mariee at home to prevent clogging and cares for him. He states that when he came to the ER today gross hematuria developed last night and worsened as time went on so he proceeded to the ER. Prior to this, he was seen in the ER yesterday morning for a clogged catheter and had his mariee replaced d/t a catheter that wouldn't drain but states there was also bloody urine at that time as well. He c/o suprapubic pain, denies fever, flank pain or malodorous urine. He has a history of chronic UTI and was placed on Cephalexin but has since stopped his daily prophylaxis. He also had taken Oxybutynin in the past but developed worsening spasms from it so stopped it and was given Myrbetriq samples in the office which he has not started yet. He denies taking anticoagulants or injuries to his mariee or abdomen. His UA is suggestive of a possible UTI, urine culture is pending, no antibiotics have been started at this time. WBC is 8.6, he is afebrile, creatinine is 0.70. Mariee is draining to gravity with CBI started, when CBI slows down urine gets grossly bloody again. CT scan of abdomen and pelvis on 12/28/22 was done and shows only an enlarged prostate but urinary tract is otherwise normal. Review of Systems Cardiovascular: Cardiovascular: Denies chest pain Respiratory: Respiratory: Reports no additional respiratory complaints Gastrointestinal: Gastrointestinal: Reports abdominal pain, Denies nausea and Denies vomiting Genitourinary: Genitourinary: Reports hematuria, Denies dysuria and Denies flank pain PMFSH Past Medical History Medical History Arterial vascular disease Arthritis Chronic anemia Diabetes mellitus with autonomic neuropathy Essential (primary) hypertension Fracture of ankle with nonunion Mixed hyperlipidemia Paroxysmal atrial fibrillation Peripheral autonomic neuropathy due to diabetes mellitus Retained orthopedic hardware Seasonal allergies Traumatic arthritis of right ankle Trimalleolar fracture Type 2 diabetes mellitus without complications Urinary frequency Vision abnormalities Wears glasses Surgical History Surgical History History of prostate biopsy Hx of cholecystectomy Status post open reduction with internal fixation (ORIF) of fracture of ankle Family History Family History Father Diabetes mellitus Hypertension Acute myocardial infarction Cerebrovascular accident Mother Family history of malignant neoplasm Other Breast cancer Social History Social History Social History: Surrogate medical decision maker: Fani Delacruz, spouse. Code status: Full code. Smoking packs per day: 0.5 Smoking cigarettes per day: 10.[address]
[2023-04-15 16:23] LABS: Glucose Point of Care 137 mg/dl (65-105)
[2023-04-15] MEDS: FLUTICASONE PROPIONATE 0.05% NA SPR 16 GM BTL (*BKC) 1 SPRAY NASAL (16:57)
[2023-04-15 17:11] LABS: Hematocrit 35.1 % (42.0-52.0); Hemoglobin 11.4 g/dL (14.0-18.0)
[2023-04-15 20:49] LABS: Glucose Point of Care 148 mg/dl (65-105)
[2023-04-15] MEDS: ATORVASTATIN 10 MG TABLET PO (21:29)
[2023-04-15 22:19] LABS: Hematocrit 32.4 % (42.0-52.0); Hemoglobin 10.6 g/dL (14.0-18.0)
[2023-04-16 06:00] VITALS: BP 145/67; PULSE 62; RESP 16; TEMP 35.7; O2SAT 98
[2023-04-16 06:59] LABS: Hematocrit 37.6 % (42.0-52.0); Hemoglobin 12.1 g/dL (14.0-18.0); Mean Corpuscular HGB Conc 32.2 g/dl (32-36); Mean Corpuscular Hemoglobin 28.2 pg (26-34); Mean Corpuscular Volume 87.6 fl (80-100); Mean Platelet Volume 9.6 fl (7.4-10.4); Platelet Count Result 308 k/mm3 (150-375); Red Blood Count 4.29 M/mm3 (4.6-6.20); Red Cell Distribution Width 13.2 % (11.5-14.5); White Blood Count 8.2 K/mm3 (4.5-10.0)
[2023-04-16 07:17] LABS: Anion Gap 6 mmol/L (8-16); Blood Urea Nitrogen 8 mg/dL (9-20); Calcium 8.5 mg/dL (8.4-10.2); Carbon Dioxide 28 mmol/L (22-30); Chloride 99 mmol/L (98-107); Estimated CRCL calculation 87 ml/min; Estimated Glomerular Filt Rate > 60; Glucose 123 mg/dL (65-110); Magnesium 1.6 mg/dL (1.6-2.3); Potassium 3.5 mmol/L (3.4-5.0); Sodium 133 mmol/L (137-145)
[2023-04-16 07:46] LABS: Glucose Point of Care 131 mg/dl (65-105)
[2023-04-16] MEDS: MAGNESIUM SULF 1 GM/D5W 100 ML 1 GM/100 ML BAG IVPB (08:24)
[2023-04-16] MEDS: FLUTICASONE PROPIONATE 0.05% NA SPR 16 GM BTL (*BKC) 1 SPRAY NASAL (08:25)
[2023-04-16] MEDS: oxyBUTYnin CHLORIDE XL 5 MG TAB.ER.24 PO (08:26)
[2023-04-16] MEDS: FINASTERIDE 5 MG TABLET PO (08:26)
[2023-04-16] MEDS: PANTOPRAZOLE 40 MG TABLET PO (08:26)
[2023-04-16] MEDS: LORATADINE 10 MG TABLET PO (08:26)
[2023-04-16] MEDS: lisinopriL 10 MG TABLET PO (08:26)
[2023-04-16] MEDS: FERROUS SULFATE 325 MG TABLET DR PO (08:26)
[2023-04-16] MEDS: amLODIPine BESYLATE 5 MG TABLET BY MOUTH (08:26)
[2023-04-16] MEDS: CYANOCOBALAMIN 1,000 MCG TABLET 1000 MCG PO (08:26)
[2023-04-16] MEDS: MULTIVITAMINS THERAPEUTIC TAB (*BKC) 1 TABLET PO (08:26)
--- NOTE | 2023-04-16 10:46 | WPDUROPN2 ---
Progress Note: A&P Assessment and Plan (1) Enlarged prostate without lower urinary tract symptoms (luts): Code(s): N40.0 - Benign prostatic hyperplasia without lower urinary tract symptoms Status: Acute Assessment and Plan: keep catheter in place. Being set up for consideration of PAE per Dr. Siegel to help control bleeding. (2) Hematuria: Code(s): R31.9 - Hematuria, unspecified Status: Acute Plan urine clear off CBI. Can plug CBI inflow tubing. OK for discharge with current catheter in place and follow up as outpatient with Dr. Siegel. Subjective Subjective Date/Time Seen: 04/16/23 10:46 Interval history: I stopped the CBI this morning and reassessed about 40 minutes later. The urine has remained clear off CBI. Mr. Delacruz feels well. Exam Const: General: comfortable and no acute distress Urinary Catheter: Urinary Catheter: patent and draining and urine clear Objective Data Vital Signs Vital Signs: Vital Signs - 24 hr 04/15/23 12:08 04/15/23 14:00 04/15/23 20:30 Temperature 36.6 C 37.2 C Pulse Rate 63 67 Respiratory Rate 15 20 Blood Pressure 150/64 H 155/68 H Pulse Oximetry 100 98 Oxygen Delivery Room Air 04/15/23 20:00 04/16/23 06:00 04/16/23 08:15 Temperature 35.7 C L Pulse Rate 67 62 Respiratory Rate 20 16 Blood Pressure 145/67 H Pulse Oximetry 98 98 Oxygen Delivery Room Air Room Air Intake/Output Intake/Output: Intake & Output 04/13/23 04/14/23 04/15/23 04/16/23 23:59 23:59 23:59 23:59 Intake Total 900 1090 Output Total 83381 3300 Balance -45925 -2210 Meds/Results Medications: Active Medications Generic Name Dose Route Start Last Admin Trade Name Freq PRN Reason Stop Dose Admin Acetaminophen 650 mg 04/15/23 15:06 Acetaminophen 325 Mg Tablet PO Q6H PRN Mild Pain (1-3) or Fever Amlodipine Besylate 5 mg 04/16/23 09:00 04/16/23 08:26 Amlodipine Besylate 5 Mg Tablet BY MOUTH 5 mg DAILY PETER Administration Atorvastatin Calcium 10 mg 04/15/23 21:00 04/15/23 21:29 Atorvastatin 10 Mg Tablet PO 10 mg HS PETER Administration Cyanocobalamin 1,000 mcg 04/16/23 09:00 04/16/23 08:26 Cyanocobalamin 1,000 Mcg Tablet PO 05/16/23 08:59 1,000 mcg DAILY PETER Administration Dextrose 12.5 gm 04/15/23 15:06 Dextrose 50% 25 Gm/50 Ml Syringe IV PUSH PRN PRN Hypoglycemia Protocol Ferrous Sulfate 325 mg 04/16/23 08:00 04/16/23 08:26 Ferrous Sulfate [address] PO 325 mg DAILY@0800 PETER Administration Finasteride 5 mg 04/16/23 09:00 04/16/23 08:26 Finasteride 5 Mg Tablet PO 5 mg DAILY PETER Administration Fluticasone Propionate 1 spray 04/15/23 17:00 04/16/23 08:25 Fluticasone Propionate 0.05% Na Spr 16 Gm Btl (*Bkc) NASAL 1 spray BID PETER Administration Glucagon 1 mg 04/15/23 15:06 Glucagon For Inj 1 Mg Vial IM PRN PRN Hypoglycemia Protocol Glucose 15 gm 04/15/23 15:06 Glucose Oral Gel 15 Gm Of Glucse In 37.5 Gm Tube PO PRN PRN Hypoglycemia Protocol Hyoscyamine 0.125 mg 04/15/23 15:06 Hyoscyamine Sulfate 0.125 Mg Tablet SUBLINGUAL Q6H PRN Bladder Spasms Dextrose 1,000 mls @ 100 mls/hr 04/15/23 15:06 Dextrose 5% 1,000 Ml IVPB PRN PRN Hypoglycemia Protocol Insulin Aspart 2 - 5 units 04/15/23 17:00 04/16/23 07:49 Insulin Aspart (*Bkc) 100 Units/Ml SUB-Q Not Given TIDWM PETER Protocol Insulin Aspart 1 - 2 units 04/15/23 21:00 04/15/23 21:32 Insulin Aspart (*Bkc) 100 Units/Ml SUB-Q Not Given HS PETER Protocol Lisinopril 10 mg 04/16/23 09:00 04/16/23 08:26 Lisinopril 10 Mg Tablet PO 10 mg DAILY PETER Administration Loratadine 10 mg 04/16/23 09:00 04/16/23 08:26 Loratadine 10 Mg Tablet PO 05/16/23 08:59 10 mg DAILY PETER Administration Multivitamins Therapeutic 1 tablet 04/16/23 09:00 04/16/23 08:26 Multivitamins
[2023-04-16 11:29] LABS: Glucose Point of Care 153 mg/dl (65-105)
[2023-04-16 14:00] VITALS: BP 144/69; PULSE 69; RESP 17; TEMP 35.9; O2SAT 100
--- NOTE | 2023-04-16 15:41 | PM.DS ---
DS: Admitting Diagnosis Discharge Date 04/16/23 Admitting Diagnosis Hematuria DS: Discharge Diagnosis Discharge Diagnosis (1) Hematuria: Code(s): R31.9 - Hematuria, unspecified Status: Acute (2) Benign prostatic hyperplasia: Qualifiers: Lower urinary tract symptom presence: symptoms absent Qualified Code(s): N40.0 - Benign prostatic hyperplasia without lower urinary tract symptoms Code(s): N40.0 - Benign prostatic hyperplasia without lower urinary tract symptoms Status: Acute (3) Chronic anemia: Code(s): D64.9 - Anemia, unspecified Status: Chronic (4) Type 2 diabetes mellitus: Qualifiers: Diabetes mellitus mcfp insulin use: without middle or intermediate school principal use Diabetes mellitus complication status: without complication Qualified Code(s): E11.9 - Type 2 diabetes mellitus without complications Code(s): E11.9 - Type 2 diabetes mellitus without complications Status: Chronic (5) Hypertension: Qualifiers: Hypertension type: primary hypertension Qualified Code(s): I10 - Essential (primary) hypertension Code(s): I10 - Essential (primary) hypertension Status: Chronic DS: Summary Hospital Course Reason for hospitalization: 83yo man with BPH, 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 Hospital Course: Patient presented to the emergency with complaints of hematuria. Hemoglobin remains stable and at time of discharge was 12.1. Renal function was normal and remained normal. He had a 3 way Ahumada catheter placed and was started on CBI. Urology was consulted. Urinalysis was a poor sample due to the hematuria. Urine cultures pending. Urine cleared. CBI was stopped. Urine remained clear about 40 minutes afterwards. Renal ultrasound showed mixed echogenicity of the left posterior mid pole mass consistent with cyst that has been noted by past imaging. A leg bag was placed. Patient's urine did become brownish red. No clots noted. Recommend patient drink plenty of free water. He is comfortable with discharge plan. Patient overall did well was able be discharged on 04/08/2023. Status at Discharge Cognitive/behavioral status at discharge: Stable Time Spent with Patient Time attestation: Total time spent providing and/or coordinating discharge services: 34 minutes Time spent: Greater than 30 minutes Exam Narrative: AF 96.7 144/69 69 17 100% ra Gen - NARD Chest - CTA bilaterally, nml RR CV - RRR S1/S2 Abd - Soft, NT/ND, Positive BS - Leg bag attached draining reddish brown urine. Ext - No pedal edema Neuro - Alert and oriented. Nonfocal exam. Psych - Nml mood and affect Skin - Warm and dry DS: Data Data Completed and Pending Labs on day of discharge: Labs from last 24 hours 04/16/23 04/16/23 04/16/23 11:25 07:44 06:12 WBC 8.2 RBC 4.29 L Hgb 12.1 L Hct 37.6 L MCV 87.6 MCH 28.2 MCHC 32.2 RDW 13.2 Plt Count 308 MPV 9.6 Sodium 133 L Potassium 3.5 Chloride 99 Carbon Dioxide 28 Anion Gap 6 L BUN 8 L Creatinine 0.60 L Estim Creat Clear Calc 87 Estimated GFR > 60 Glucose 123 H POC Capillary Glucose 153 H 131 H Calcium 8.5 Magnesium 1.6 04/15/23 04/15/23 04/15/23 22:05 20:31 16:33 WBC RBC Hgb 10.6 L 11.4 L Hct 32.4 L 35.1 L MCV MCH MCHC RDW Plt Count MPV Sodium Potassium Chloride Carbon Dioxide Anion Gap BUN Creatinine Estim Creat Clear Calc Estimated GFR Glucose POC Capillary Glucose 148 H Calcium Magnesium 04/15/23 16:20 WBC RBC Hgb Hct MCV MCH MCHC RDW Plt Count MPV Sodium Potassium Chloride Carbon Dioxide Anion Gap BUN Creatinine Estim Creat
--- NOTE | 2023-04-18 06:36 | PC.NURSE ---
Urine cx is negative. Dr. Solomon gamble.
== END 2023-04-16 16:30 | disposition home or self-care (01) ==
LOC: ANHED 07:58 → ANH3MEDSUR 19:17
PROVIDERS: Physician Assistant; Student in an Organized Health Care Education/Training Program; Admitting Provider General Practice; Emergency Provider Preventive Medicine Aerospace Medicine; PCP Family Medicine; Visit Provider Internal Medicine
DX: R31.9 Hematuria, unspecified (principal); N40.1 Benign prostatic hyperplasia with lower urinary tract symptoms; R33.8 Other retention of urine; R35.0 Frequency of micturition; N32.89 Other specified disorders of bladder; I10 Essential (primary) hypertension; E78.2 Mixed hyperlipidemia; I48.0 Paroxysmal atrial fibrillation; D64.9 Anemia, unspecified; Z96.0 Presence of urogenital implants; E11.43 Type 2 diabetes mellitus with diabetic autonomic (poly)neuropathy; J30.2 Other seasonal allergic rhinitis; Z83.3 Family history of diabetes mellitus; Z82.49 Family history of ischemic heart disease and other diseases of the circulatory system; Z79.84 Long term (current) use of oral hypoglycemic drugs; Z87.891 Personal history of nicotine dependence; Z79.899 Other long term (current) drug therapy
CPT/HCPCS: 36415; 76775; 80048; 80053; 81001; 82550; 82948; 83735; 85014; 85018; 85025; 85027; 85610; 85730; 87086; 87088; 96374; 99285; A9270; G0378; J3475

== ENCOUNTER 2023-05-18 00:45 | Emergency (ER) | payer MEDICARE, SELFPAY ==
[2023-05-18 00:49] VITALS: BP 212/83; PULSE 85; RESP 18; TEMP 36.9; O2SAT 100
--- NOTE | 2023-05-18 01:53 | ED.MALEGU ---
HPI - Male Genitourinary General Chief complaint: Urogenital-Male Stated complaint: urinary cath problems Time Seen by Provider: 05/18/23 01:19 History of Present Illness HPI Narrative: 83-year-old male who has a chronic indwelling Ahumada catheter secondary to prostatic hypertrophy reports for evaluation for cord urinary catheter times 2-1/2 hours. Patient states he had his catheter drained yesterday at his urologist's office, Dr. Montiel. States it was draining fine to bed at 10:00 p.m. after emptying his Ahumada bag. States he woke up around 11:30 p.m. with suprapubic pain and noticed his Ahumada that was not draining. He then came to the ED for further evaluation. He denies dysuria, cloudy urine, hematuria, chest pain or shortness of breath, flank pain. Upon my evaluation, the nurses already changed his Ahumada and he reports significant improvement in Suprapubic pain. Related Data Home Medications Medication Instructions Recorded Confirmed cetirizine 10 mg tablet (Zyrtec) 10 mg PO DAILY 07/04/19 04/15/23 multivitamin (Multiple Vitamins 1 tablet PO DAILY 02/29/20 04/15/23 tablet) finasteride 5 mg tablet 5 mg PO DAILY 02/26/22 04/15/23 mecobalamin (vitamin B12) 1,000 1,000 mcg PO DAILY 05/18/22 04/15/23 mcg chewable tablet ascorbate calcium (vitamin C) 500 500 mg PO DAILY 04/15/23 04/15/23 mg tablet hyoscyamine sulfate 0.125 mg 0.125 mg sublingual Q6H PRN 04/15/23 04/15/23 sublingual tablet Bladder Spasms oxybutynin chloride 5 mg 5 mg PO DAILY 04/15/23 04/15/23 tablet,extended release 24 hr Allergies Allergy/AdvReac Type Severity Reaction Status Date / Time neomycin Allergy Mild Rash Verified 04/15/23 05:28 Sulfa (Sulfonamide AdvReac Intermediate Nausea Verified 04/15/23 05:28 Antibiotics) Review of Systems Review of Systems: CONSTITUTIONAL: Denies fever, chills, or sweats. EYES: Denies visual changes, redness, or discharge. ENT: Denies rhinorrhea, congestion, sore throat, or otalgia. CARDIOVASCULAR: Denies chest pain, palpitations, or edema. RESPIRATORY: Denies cough or dyspnea. GASTROINTESTINAL: See HPI GENITOURINARY: SEE HPI SKIN: Denies rash or itching. MUSCULOSKELETAL: Denies back pain, joint pain, or myalgia. NEUROLOGIC: Denies headache, numbness, or weakness. PSYCHIATRIC: Denies anxiety or depression. [facility] Past Medical History Medical History Arterial vascular disease Arthritis Chronic anemia Diabetes mellitus with autonomic neuropathy Essential (primary) hypertension Fracture of ankle with nonunion Mixed hyperlipidemia Paroxysmal atrial fibrillation Peripheral autonomic neuropathy due to diabetes mellitus Retained orthopedic hardware Seasonal allergies Traumatic arthritis of right ankle Trimalleolar fracture Type 2 diabetes mellitus without complications Urinary frequency Vision abnormalities Wears glasses Surgical History Surgical History History of prostate biopsy Hx of cholecystectomy Status post open reduction with internal fixation (ORIF) of fracture of ankle Family History Family History Father Diabetes mellitus Hypertension Acute myocardial infarction Cerebrovascular accident Mother Family history of malignant neoplasm Other Breast cancer Social History Social History Social History: Surrogate medical decision maker: Fani Gower, spouse. Code status: Full code. Smoking packs per day: 0.5 Smoking cigarettes per day: 10.0 Smoking status: Former smoker Alcohol intake: never Alcohol use details: FEW DRINKS/YEAR Substance use: never Substance use type: does not use Lack of Transportation: No Lack of Food: Never True Current Housing: I Have Housing Concerned About Future Housing: No Difficulty Paying
[2023-05-18 02:12] VITALS: BP 179/80; PULSE 82; RESP 17; O2SAT 100
--- NOTE | 2023-05-18 03:00 | PC.NURSE ---
This RN called lab to get update on UA results. Jonas in lab stated UA machine was down, but they were working on restarting it.
[2023-05-18 03:10] LABS: Appearance Urine Cloudy (Clear); Bacteria Urine 4+ /hpf; Bilirubin Urine Negative (Negative); Blood Urine 3+ (Negative); Color Urine Yellow (Yellow); Glucose Urine UA Negative (Negative); Ketones Urine Negative (Negative); Leukocyte Esterase Ur 2+ LEU/UL (Negative); Nitrate Urine Positive (Negative); Non Pathogenic Casts 0-2; Protein Urine 2+ mg/dL (Negative); RBC Urine >100 /hpf (0-2); Specific Grav Ur 1.014 (1.001-1.035); Squamous Epithelial Cell Urine None seen /hpf (Few); WBC Urine >100 /hpf
[2023-05-18 03:26] LABS: Add Urine Microscopic? YES
[2023-05-18 03:48] VITALS: BP 168/80; PULSE 84; RESP 16; O2SAT 99
[2023-05-18] MEDS: CEPHALEXIN 500 MG CAPSULE PO (03:49)
== END 2023-05-18 03:52 | disposition home or self-care (01) ==
PROVIDERS: Emergency Provider Physician Assistant; PCP Family Medicine
DX: T83.091A Other mechanical complication of indwelling urethral catheter, initial encounter (principal); N39.0 Urinary tract infection, site not specified; E78.2 Mixed hyperlipidemia; I48.0 Paroxysmal atrial fibrillation; E11.9 Type 2 diabetes mellitus without complications; I10 Essential (primary) hypertension; Z87.891 Personal history of nicotine dependence
CPT/HCPCS: 51702; 81001; 87077; 87086; 87186; 99283; A9270

== ENCOUNTER 2023-05-26 13:23 | Emergency (ER) | payer MEDICARE, SELFPAY ==
[2023-05-26 13:45] VITALS: BP 172/82; PULSE 94; RESP 18; TEMP 37.2; O2SAT 100
--- NOTE | 2023-05-26 13:53 | PC.NURSE ---
Pt states he was able to get in with dr office, pt leaving at this time
== END 2023-05-26 15:51 | disposition left against medical advice (07) ==
PROVIDERS: PCP Family Medicine
DX: T83.098A Other mechanical complication of other urinary catheter, initial encounter (principal)
CPT/HCPCS: 99199

== ENCOUNTER 2023-06-11 02:13 | Emergency (ER) | payer MEDICARE, SELFPAY ==
[2023-06-11 02:15] VITALS: BP 182/92; PULSE 78; RESP 20; TEMP 36.5; O2SAT 100
--- NOTE | 2023-06-11 02:31 | ED.GENADULT ---
HPI - General Adult General Chief complaint: Urogenital-Male Stated complaint: urinary catheter is plugged Time Seen by Provider: 06/11/23 02:21 History of Present Illness HPI narrative: 83-year-old male with history of atonic bladder and enlarged prostate presenting to the emergency department for evaluation of a clogged Ahumada catheter. Patient often has issues with his Ahumada catheter. Patient does have follow-up with Dr. Siegel. Patient presented to the ED stating that his Ahumada catheter stopped draining over the night and patient woke up with urinary urgency. Patient reports that the Ahumada catheter was changed last week at the urology office. Related Data Home Medications Medication Instructions Recorded Confirmed cetirizine 10 mg tablet (Zyrtec) 10 mg PO DAILY 07/04/19 06/08/23 multivitamin (Multiple Vitamins 1 tablet PO DAILY 02/29/20 06/08/23 tablet) finasteride 5 mg tablet 5 mg PO DAILY 02/26/22 06/08/23 mecobalamin (vitamin B12) 1,000 1,000 mcg PO DAILY 05/18/22 06/08/23 mcg chewable tablet ascorbate calcium (vitamin C) 500 500 mg PO DAILY 04/15/23 06/08/23 mg tablet hyoscyamine sulfate 0.125 mg 0.125 mg sublingual Q6H PRN 04/15/23 06/08/23 sublingual tablet Bladder Spasms oxybutynin chloride 5 mg 5 mg PO DAILY 04/15/23 06/08/23 tablet,extended release 24 hr Allergies Allergy/AdvReac Type Severity Reaction Status Date / Time neomycin Allergy Mild Rash Verified 06/08/23 13:00 Sulfa (Sulfonamide AdvReac Intermediate Nausea Verified 06/08/23 13:00 Antibiotics) Review of Systems Review of Systems: All systems reviewed & are unremarkable except as noted in HPI and below PMFSH Past Medical History Medical History Arterial vascular disease Arthritis Chronic anemia Diabetes mellitus with autonomic neuropathy Essential (primary) hypertension Fracture of ankle with nonunion Mixed hyperlipidemia Paroxysmal atrial fibrillation Peripheral autonomic neuropathy due to diabetes mellitus Retained orthopedic hardware Seasonal allergies Traumatic arthritis of right ankle Trimalleolar fracture Type 2 diabetes mellitus without complications Urinary frequency Vision abnormalities Wears glasses Surgical History Surgical History History of prostate biopsy Hx of cholecystectomy Status post open reduction with internal fixation (ORIF) of fracture of ankle Family History Family History Father Diabetes mellitus Hypertension Acute myocardial infarction Cerebrovascular accident Mother Family history of malignant neoplasm Other Breast cancer Social History Social History Social History: Surrogate medical decision maker: Fani Delacruz, spouse. Code status: Full code. Smoking packs per day: 0.5 Smoking cigarettes per day: 10.0 Smoking status: Former smoker Alcohol intake: never Alcohol use details: FEW DRINKS/YEAR Substance use: never Substance use type: does not use Lack of Transportation: No Lack of Food: Never True Current Housing: I Have Housing Concerned About Future Housing: No Difficulty Paying Gas/Electric Bills: No Difficulty Paying for Meds: No Currently Unemployed: No Education: Trade/Vocational Certificate Difficulty w/ Childcare or Family Care: No Living arrangements: with family Occupation/Education: retired Spiritual care concerns: No Exam Narrative: APPEARANCE: Well appearing, no pain, no distress, well-nourished. HEAD: normocephalic, atraumatic. EYES: PERRLA/EOMI, conjunctivae clear. NOSE: Normal no drainage EARS:TMS clear with good light reflex. THROAT: Pharynx clear, no exudate. NECK: Supple. No adenopathy, no masses. RESPIRATORY: Airway patent, respirations nonlabored. Clear to auscultation bilaterally, no rales
[2023-06-11 03:30] LABS: Appearance Urine Cloudy (Clear); Bacteria Urine 4+ /hpf; Bilirubin Urine Negative (Negative); Blood Urine 2+ (Negative); Color Urine Yellow (Yellow); Glucose Urine UA Negative (Negative); Ketones Urine Negative (Negative); Leukocyte Esterase Ur 2+ LEU/UL (Negative); Nitrate Urine Positive (Negative); Non Pathogenic Casts 0-2; Protein Urine Trace mg/dL (Negative); Specific Grav Ur 1.006 (1.001-1.035); Squamous Epithelial Cell Urine None seen /hpf (Few); Urobilinogen Urine 0.2 mg/dL (<2.0); WBC Urine 21-50 /hpf; pH Urine 7.5 (5.0-9.0)
[2023-06-11 03:52] LABS: Add Urine Microscopic? YES
[2023-06-11] MEDS: CEPHALEXIN 500 MG CAPSULE PO (04:18)
== END 2023-06-11 04:26 | disposition home or self-care (01) ==
PROVIDERS: Emergency Provider Emergency Medicine; PCP Family Medicine
DX: N39.0 Urinary tract infection, site not specified (principal); T83.098A Other mechanical complication of other urinary catheter, initial encounter; M19.90 Unspecified osteoarthritis, unspecified site; E11.9 Type 2 diabetes mellitus without complications; I10 Essential (primary) hypertension; E78.5 Hyperlipidemia, unspecified; I48.91 Unspecified atrial fibrillation
CPT/HCPCS: 51702; 81001; 87086; 87088; 99283; A9270

== ENCOUNTER 2023-06-23 15:12 | Emergency (ER) | payer MEDICARE, SELFPAY ==
[2023-06-23 15:27] VITALS: BP 174/80; PULSE 85; RESP 16; TEMP 36.4; O2SAT 100
--- NOTE | 2023-06-23 15:30 | ED.URI ---
HPI - URI/Sore Throat General Chief Complaint: Upper Respiratory Infection Stated Complaint: CONGESTION Time Seen by Provider: 06/23/23 15:15 Source: patient Mode of arrival: ambulatory Limitations: no limitations History of Present Illness HPI Narrative: Mr. Delacruz is an 83-year-old male patient presenting to the clinic today with complaints of right-sided nasal congestion x1 day. He reports he normally has sinus issues and takes Zyrtec and Flonase daily. States that he has got a lot of pressure in the right sinus and constant congestion in the right near. Denies any fever or chills. Denies any chest pain or shortness of breath. MD elicited complaint: sore throat and nasal congestion Related Data Home Medications Medication Instructions Recorded Confirmed cetirizine 10 mg tablet (Zyrtec) 10 mg PO DAILY 07/04/19 06/23/23 multivitamin (Multiple Vitamins 1 tablet PO DAILY 02/29/20 06/23/23 tablet) finasteride 5 mg tablet 5 mg PO DAILY 02/26/22 06/23/23 mecobalamin (vitamin B12) 1,000 1,000 mcg PO DAILY 05/18/22 06/23/23 mcg chewable tablet ascorbate calcium (vitamin C) 500 500 mg PO DAILY 04/15/23 06/23/23 mg tablet Allergies Allergy/AdvReac Type Severity Reaction Status Date / Time neomycin Allergy Mild Rash Verified 06/23/23 15:20 Sulfa (Sulfonamide AdvReac Intermediate Nausea Verified 06/23/23 15:20 Antibiotics) Review of Systems Review of Systems: Pertinent positives per HPI. Patient denies any fever, chills, rash, headache, visual changes, dizziness, cough, shortness of breath, chest pain, palpitations, nausea, vomiting, diarrhea, constipation, abdominal pain, or any urinary issues. [facility] Past Medical History Medical History Arterial vascular disease Arthritis Chronic anemia Diabetes mellitus with autonomic neuropathy Essential (primary) hypertension Fracture of ankle with nonunion Mixed hyperlipidemia Paroxysmal atrial fibrillation Peripheral autonomic neuropathy due to diabetes mellitus Retained orthopedic hardware Seasonal allergies Traumatic arthritis of right ankle Trimalleolar fracture Type 2 diabetes mellitus without complications Urinary frequency Vision abnormalities Wears glasses Surgical History Surgical History History of prostate biopsy Hx of cholecystectomy Status post open reduction with internal fixation (ORIF) of fracture of ankle Family History Family History Father Diabetes mellitus Hypertension Acute myocardial infarction Cerebrovascular accident Mother Family history of malignant neoplasm Other Breast cancer Social History Social History Social History: Surrogate medical decision maker: Fani Delacruz, spouse. Code status: Full code. Smoking packs per day: 0.5 Smoking cigarettes per day: 10.0 Smoking status: Former smoker Alcohol intake: never Alcohol use details: FEW DRINKS/YEAR Substance use: never Substance use type: does not use Lack of Transportation: No Lack of Food: Never True Current Housing: I Have Housing Concerned About Future Housing: No Difficulty Paying Gas/Electric Bills: No Difficulty Paying for Meds: No Currently Unemployed: No Education: Trade/Vocational Certificate Difficulty w/ Childcare or Family Care: No Living arrangements: with family Occupation/Education: retired Spiritual care concerns: No Comments At the time of my signature, I reviewed and agree with the nursing past medical, surgical, social, and family history. There is no relevant family history pertinent to the patient complaint. Exam Narrative: General: Well-developed, well nourished, in no apparent distress Head: Normocephalic, atraumatic Eyes: Pupils equally round and reactive to
== END 2023-06-23 16:09 | disposition home or self-care (01) ==
PROVIDERS: Emergency Provider Nurse Practitioner Family; PCP Family Medicine
DX: R09.81 Nasal congestion (principal); Z20.822 Contact with and (suspected) exposure to COVID-19; Z87.891 Personal history of nicotine dependence; E11.43 Type 2 diabetes mellitus with diabetic autonomic (poly)neuropathy; Z79.84 Long term (current) use of oral hypoglycemic drugs; I10 Essential (primary) hypertension; E78.2 Mixed hyperlipidemia; I73.9 Peripheral vascular disease, unspecified; M19.90 Unspecified osteoarthritis, unspecified site
CPT/HCPCS: 87426; 99213; C9803; G0463

== ENCOUNTER 2023-07-01 00:34 | Emergency (ER) | payer MEDICARE, SELFPAY ==
[2023-07-01 00:37] VITALS: BP 153/87; PULSE 44; RESP 20; O2SAT 99
[2023-07-01 01:05] LABS: Add Urine Microscopic? YES; Appearance Urine Clear (Clear); Color Urine Yellow (Yellow); Glucose Urine UA Negative (Negative); Protein Urine Trace mg/dL (Negative); Specific Grav Ur 1.015 (1.001-1.035)
[2023-07-01 01:06] LABS: Bilirubin Urine Negative (Negative); Blood Urine 3+ (Negative); Ketones Urine Negative (Negative); Leukocyte Esterase Ur 2+ LEU/UL (Negative); Nitrate Urine Positive (Negative); Urobilinogen Urine 0.2 mg/dL (<2.0)
[2023-07-01 01:10] LABS: Squamous Epithelial Cell Urine Few /hpf (Few)
[2023-07-01 01:11] LABS: Bacteria Urine 1+ /hpf
--- NOTE | 2023-07-01 02:31 | ED.GENADULT ---
HPI - General Adult General Chief complaint: Urogenital-Male Stated complaint: urinary retenetion Time Seen by Provider: 07/01/23 02:30 History of Present Illness HPI narrative: patient is a 83-year-old gentleman who presents emergency department with chief complaint of urinary retention. The patient has a chronic indwelling Ahumada and reports that his catheter got plugged this evening. Related Data Home Medications Medication Instructions Recorded Confirmed cetirizine 10 mg tablet (Zyrtec) 10 mg PO DAILY 07/04/19 06/23/23 multivitamin (Multiple Vitamins 1 tablet PO DAILY 02/29/20 06/23/23 tablet) finasteride 5 mg tablet 5 mg PO DAILY 02/26/22 06/23/23 mecobalamin (vitamin B12) 1,000 1,000 mcg PO DAILY 05/18/22 06/23/23 mcg chewable tablet ascorbate calcium (vitamin C) 500 500 mg PO DAILY 04/15/23 06/23/23 mg tablet Allergies Allergy/AdvReac Type Severity Reaction Status Date / Time neomycin Allergy Mild Rash Verified 06/23/23 15:20 Sulfa (Sulfonamide AdvReac Intermediate Nausea Verified 06/23/23 15:20 Antibiotics) Review of Systems Review of Systems: A 10 system review of systems was completed on the patient and is negative except for what is stated in the HPI. Nursing and ancillary documentation was reviewed. [facility] Past Medical History Medical History Arterial vascular disease Arthritis Chronic anemia Diabetes mellitus with autonomic neuropathy Essential (primary) hypertension Fracture of ankle with nonunion Mixed hyperlipidemia Paroxysmal atrial fibrillation Peripheral autonomic neuropathy due to diabetes mellitus Retained orthopedic hardware Seasonal allergies Traumatic arthritis of right ankle Trimalleolar fracture Type 2 diabetes mellitus without complications Urinary frequency Vision abnormalities Wears glasses Surgical History Surgical History History of prostate biopsy Hx of cholecystectomy Status post open reduction with internal fixation (ORIF) of fracture of ankle Family History Family History Father Diabetes mellitus Hypertension Acute myocardial infarction Cerebrovascular accident Mother Family history of malignant neoplasm Other Breast cancer Social History Social History Social History: Surrogate medical decision maker: Fani Delacruz, spouse. Code status: Full code. Smoking packs per day: 0.5 Smoking cigarettes per day: 10.0 Smoking status: Former smoker Alcohol intake: never Alcohol use details: FEW DRINKS/YEAR Substance use: never Substance use type: does not use Lack of Transportation: No Lack of Food: Never True Current Housing: I Have Housing Concerned About Future Housing: No Difficulty Paying Gas/Electric Bills: No Difficulty Paying for Meds: No Currently Unemployed: No Education: Trade/Vocational Certificate Difficulty w/ Childcare or Family Care: No Living arrangements: with family Occupation/Education: retired Spiritual care concerns: No Exam Narrative: GENERAL: Well-appearing, well-nourished, and in no acute distress. HEAD: Normocephalic, atraumatic. EYES: PERRLA and EOMI. ENT: Nares clear, no rhinorrhea or epistaxis. Mucous membranes moist. NECK: Supple. CHEST: Clear to auscultation. No respiratory distress. HEART: Regular rate and rhythm. No murmur heard. Normal peripheral pulses. ABDOMEN: Soft, nontender, nondistended, normal active bowel sounds. EXTREMITIES: Normal range of motion. No edema. SKIN: Warm, dry, no rash. NEURO: No focal deficits. Alert and oriented x3. PSYCH: Normal mood and affect. Course Vital Signs Vital signs: Vital Signs Pulse Rate 44 L 07/01/23 00:37 Respiratory Rate 20 07/01/23 00:37 Blood Press
[2023-07-01] MEDS: WATER FOR IRRIGATION, STERILE 500 ML BOTTLE (02:53)
== END 2023-07-01 03:20 | disposition home or self-care (01) ==
LOC: ANHED 02:50
PROVIDERS: Emergency Provider Emergency Medicine; PCP Family Medicine
DX: T83.091A Other mechanical complication of indwelling urethral catheter, initial encounter (principal); R33.8 Other retention of urine; Y84.6 Urinary catheterization as the cause of abnormal reaction of the patient, or of later complication, without mention of misadventure at the time of the procedure; E11.43 Type 2 diabetes mellitus with diabetic autonomic (poly)neuropathy; I10 Essential (primary) hypertension; E11.51 Type 2 diabetes mellitus with diabetic peripheral angiopathy without gangrene; E78.2 Mixed hyperlipidemia; I48.0 Paroxysmal atrial fibrillation; D64.9 Anemia, unspecified; Z87.891 Personal history of nicotine dependence; Z79.84 Long term (current) use of oral hypoglycemic drugs
CPT/HCPCS: 51702; 81001; 99283

== ENCOUNTER 2023-07-01 22:47 | Emergency (ER) | payer MEDICARE, SELFPAY ==
[2023-07-01 22:49] VITALS: BP 166/72; PULSE 40; RESP 16; TEMP 36.4; O2SAT 100
--- NOTE | 2023-07-01 22:57 | ECG_ITS ---
Measurements Intervals [place] Rate: 73 P: 57 MO: 136 QRS: -5 QRSD: 92 T: 112 QT: 367 QTc: 405 Interpretive Statements SINUS RHYTHM SUPRAVENTRICULAR BIGEMINY EARLY PRECORDIAL R/S TRANSITION MINIMAL Q WAVES- ANT/HIGH LAT LEADS NONSPECIFIC ST & T-WAVE ABNORMALITY- ANTEROLAT/HIGH LAT LEADS BASELINE WANDER- V6 ABNORMAL ECG COMPARED TO ECG 04/01/2023 15:20:55 SUPRAVENTRICULAR BIGEMINY NOW PRESENT Electronically Signed On 07-02-2023 7:13:48 [employer] by Juan Antonio Escalante D.O.
[2023-07-01 23:13] VITALS: BP 161/71; PULSE 72; RESP 18; O2SAT 99
--- NOTE | 2023-07-02 00:21 | PC.NURSE ---
Blood clot noted when removing home catheter.
--- NOTE | 2023-07-02 00:51 | ED.GENADULT ---
HPI - General Adult General Chief complaint: Urogenital-Male Stated complaint: catheter not draining Time Seen by Provider: 07/01/23 23:32 History of Present Illness HPI narrative: This is a 3-year-old male with a indwelling Ahumada due to urinary retention presenting for a clogged catheter. He was seen last night for similar presentation. He noticed that his catheter stopped draining around 8:00 p.m. last night. He started to get some pressure in his lower abdomen and came to the hospital. Patient denies fever chills nausea vomiting abdominal pain. Related Data Home Medications Medication Instructions Recorded Confirmed cetirizine 10 mg tablet (Zyrtec) 10 mg PO DAILY 07/04/19 06/23/23 multivitamin (Multiple Vitamins 1 tablet PO DAILY 02/29/20 06/23/23 tablet) finasteride 5 mg tablet 5 mg PO DAILY 02/26/22 06/23/23 mecobalamin (vitamin B12) 1,000 1,000 mcg PO DAILY 05/18/22 06/23/23 mcg chewable tablet ascorbate calcium (vitamin C) 500 500 mg PO DAILY 04/15/23 06/23/23 mg tablet Allergies Allergy/AdvReac Type Severity Reaction Status Date / Time neomycin Allergy Mild Rash Verified 07/01/23 23:13 Sulfa (Sulfonamide AdvReac Intermediate Nausea Verified 07/01/23 23:13 Antibiotics) [facility] Past Medical History Medical History Arterial vascular disease Arthritis Chronic anemia Diabetes mellitus with autonomic neuropathy Essential (primary) hypertension Fracture of ankle with nonunion Mixed hyperlipidemia Paroxysmal atrial fibrillation Peripheral autonomic neuropathy due to diabetes mellitus Retained orthopedic hardware Seasonal allergies Traumatic arthritis of right ankle Trimalleolar fracture Type 2 diabetes mellitus without complications Urinary frequency Vision abnormalities Wears glasses Surgical History Surgical History History of prostate biopsy Hx of cholecystectomy Status post open reduction with internal fixation (ORIF) of fracture of ankle Family History Family History Father Diabetes mellitus Hypertension Acute myocardial infarction Cerebrovascular accident Mother Family history of malignant neoplasm Other Breast cancer Social History Social History Social History: Surrogate medical decision maker: Fani Delacruz, spouse. Code status: Full code. Smoking packs per day: 0.5 Smoking cigarettes per day: 10.0 Smoking status: Former smoker Alcohol intake: never Alcohol use details: FEW DRINKS/YEAR Substance use: never Substance use type: does not use Lack of Transportation: No Lack of Food: Never True Current Housing: I Have Housing Concerned About Future Housing: No Difficulty Paying Gas/Electric Bills: No Difficulty Paying for Meds: No Currently Unemployed: No Education: Trade/Vocational Certificate Difficulty w/ Childcare or Family Care: No Living arrangements: with family Occupation/Education: retired Spiritual care concerns: No Exam Narrative: APPEARANCE: No apparent distress. Head: atraumatic. EYES: EOMI, NOSE: Atraumatic NECK: Trachea midline RESPIRATORY: No increased rate of breathing CARDIOVASCULAR: RRR, ABDOMINAL: Mild suprapubic fullness, nontender no guarding or rebound MUSCULOSKELETAl: No obvious deformities NEURO: Alert. Moving 4/4 extremities SKIN:: Warm, dry. Normal color PSYCHIATRIC: Normal affect Course Vital Signs Vital signs: Vital Signs Temperature 97.5 F L 07/01/23 22:49 Pulse Rate 40 L 07/01/23 22:49 Respiratory Rate 16 07/01/23 22:49 Blood Pressure 166/72 H 07/01/23 22:49 Pulse Oximetry 100 07/01/23 22:49 Temperature 97.5 F L 07/01/23 22:49 Pulse Rate 72 07/01/23 23:13 Respiratory Rate 18 07/01/23 23:13 Blood Press
== END 2023-07-02 01:20 | disposition home or self-care (01) ==
PROVIDERS: Emergency Provider Emergency Medicine; PCP Family Medicine
DX: T83.098A Other mechanical complication of other urinary catheter, initial encounter (principal); I10 Essential (primary) hypertension; I99.9 Unspecified disorder of circulatory system; E11.43 Type 2 diabetes mellitus with diabetic autonomic (poly)neuropathy; E78.2 Mixed hyperlipidemia; D64.9 Anemia, unspecified; M19.90 Unspecified osteoarthritis, unspecified site; Z87.891 Personal history of nicotine dependence; Z90.49 Acquired absence of other specified parts of digestive tract; R00.8 Other abnormalities of heart beat; R94.31 Abnormal electrocardiogram [ECG] [EKG]; Z79.84 Long term (current) use of oral hypoglycemic drugs; Y84.6 Urinary catheterization as the cause of abnormal reaction of the patient, or of later complication, without mention of misadventure at the time of the procedure
CPT/HCPCS: 51702; 81001; 93005; 99283

== ENCOUNTER 2023-07-19 22:37 | Emergency (ER) | payer MEDICARE, SELFPAY ==
[2023-07-19 22:48] VITALS: BP 198/53; PULSE 62; RESP 16; TEMP 36.4; O2SAT 100
--- NOTE | 2023-07-20 02:01 | ED.GENADULT ---
HPI - General Adult General Chief complaint: Urogenital-Male Stated complaint: catheter not draining Time Seen by Provider: 07/20/23 00:44 History of Present Illness HPI narrative: 83-year-old male with indwelling Ahumada and recurrent blockages presenting with malfunctioning Ahumada. Patient saw Dr. Siegel earlier today. After his visit the Ahumada stopped draining. Patient developed lower abdominal pain. Patient has been seen for this numerous times. Related Data Home Medications Medication Instructions Recorded Confirmed cetirizine 10 mg tablet (Zyrtec) 10 mg PO DAILY 07/04/19 06/23/23 multivitamin (Multiple Vitamins 1 tablet PO DAILY 02/29/20 06/23/23 tablet) finasteride 5 mg tablet 5 mg PO DAILY 02/26/22 06/23/23 mecobalamin (vitamin B12) 1,000 1,000 mcg PO DAILY 05/18/22 06/23/23 mcg chewable tablet ascorbate calcium (vitamin C) 500 500 mg PO DAILY 04/15/23 06/23/23 mg tablet Allergies Allergy/AdvReac Type Severity Reaction Status Date / Time neomycin Allergy Mild Rash Verified 07/01/23 23:13 Sulfa (Sulfonamide AdvReac Intermediate Nausea Verified 07/01/23 23:13 Antibiotics) [facility] Past Medical History Medical History Arterial vascular disease Arthritis Chronic anemia Diabetes mellitus with autonomic neuropathy Essential (primary) hypertension Fracture of ankle with nonunion Mixed hyperlipidemia Paroxysmal atrial fibrillation Peripheral autonomic neuropathy due to diabetes mellitus Retained orthopedic hardware Seasonal allergies Traumatic arthritis of right ankle Trimalleolar fracture Type 2 diabetes mellitus without complications Urinary frequency Vision abnormalities Wears glasses Surgical History Surgical History History of prostate biopsy Hx of cholecystectomy Status post open reduction with internal fixation (ORIF) of fracture of ankle Family History Family History Father Diabetes mellitus Hypertension Acute myocardial infarction Cerebrovascular accident Mother Family history of malignant neoplasm Other Breast cancer Social History Social History Social History: Surrogate medical decision maker: Fani Delacruz, spouse. Code status: Full code. Smoking packs per day: 0.5 Smoking cigarettes per day: 10.0 Smoking status: Former smoker Alcohol intake: never Alcohol use details: FEW DRINKS/YEAR Substance use: never Substance use type: does not use Lack of Transportation: No Lack of Food: Never True Current Housing: I Have Housing Concerned About Future Housing: No Difficulty Paying Gas/Electric Bills: No Difficulty Paying for Meds: No Currently Unemployed: No Education: Trade/Vocational Certificate Difficulty w/ Childcare or Family Care: No Living arrangements: with family Occupation/Education: retired Spiritual care concerns: No Exam Narrative: APPEARANCE: No apparent distress. Head: atraumatic. EYES: EOMI, NOSE: Atraumatic NECK: Trachea midline RESPIRATORY: No increased rate of breathing CARDIOVASCULAR: RRR, ABDOMINAL: Ahumada had been replaced by time I evaluated the patient. Abdomen soft nontender no guarding or rebound. MUSCULOSKELETAl: No obvious deformities NEURO: Alert. Moving 4/4 extremities SKIN:: Warm, dry. Normal color PSYCHIATRIC: Normal affect Course Vital Signs Vital signs: Vital Signs Temperature 97.6 F 07/19/23 22:48 Pulse Rate 62 07/19/23 22:48 Respiratory Rate 16 07/19/23 22:48 Blood Pressure 198/53 H 07/19/23 22:48 Pulse Oximetry 100 07/19/23 22:48 Oxygen Delivery Room Air 07/19/23 22:48 Temperature 97.6 F 07/19/23 22:48 Pulse Rate 62 07/19/23 22:48 Respiratory Rate 16 07/19/23 22:48 Blood Pressure 198/5
== END 2023-07-20 02:29 | disposition home or self-care (01) ==
PROVIDERS: Emergency Provider Emergency Medicine; PCP Family Medicine
DX: T83.098A Other mechanical complication of other urinary catheter, initial encounter (principal); R10.30 Lower abdominal pain, unspecified; Y82.9 Unspecified medical devices associated with adverse incidents
CPT/HCPCS: 51702; 99283

== ENCOUNTER 2023-07-21 13:32 | Emergency (ER) | payer MEDICARE, SELFPAY ==
[2023-07-21 13:39] VITALS: BP 127/74; PULSE 124; RESP 16; TEMP 36.4; O2SAT 99
[2023-07-21 13:42] VITALS: BP 127/74; PULSE 124; RESP 16; TEMP 36.4; O2SAT 99
--- NOTE | 2023-07-21 13:46 | ED.GENADULT ---
HPI - General Adult General Chief complaint: Neuro Symptoms/Deficit Stated complaint: CONFUSION Time Seen by Provider: 07/21/23 13:46 Source: patient, RN notes reviewed and old records reviewed Mode of arrival: ambulatory Limitations: no limitations History of Present Illness HPI narrative: 83-year-old male presents to the [facility] with . states about 12 30 they were sitting in [employer]-apartments ordering food. Patient started having slurred, garbled speech. states that he was making no sense when she was trying to talk to him. Was able to walk without issue Patient is A&O times 2-3. At 1st did not report the correct current ear. Onset (ago): hour(s) (2) Exacerbating factors: none Related Data Home Medications Medication Instructions Recorded Confirmed cetirizine 10 mg tablet (Zyrtec) 10 mg PO DAILY 07/04/19 07/21/23 multivitamin (Multiple Vitamins 1 tablet PO DAILY 02/29/20 07/21/23 tablet) finasteride 5 mg tablet 5 mg PO DAILY 02/26/22 07/21/23 mecobalamin (vitamin B12) 1,000 1,000 mcg PO DAILY 05/18/22 07/21/23 mcg chewable tablet ascorbate calcium (vitamin C) 500 500 mg PO DAILY 04/15/23 07/21/23 mg tablet Allergies Allergy/AdvReac Type Severity Reaction Status Date / Time neomycin Allergy Mild Rash Verified 07/21/23 13:41 Sulfa (Sulfonamide AdvReac Intermediate Nausea Verified 07/21/23 13:41 Antibiotics) Review of Systems Review of Systems: All systems reviewed & are unremarkable except as noted in HPI and below Constitutional: Constitutional: Reports no additional constitutional complaints Eyes: Eyes: Reports no additional eye complaints ENT: Reports system reviewed and no additional complaints, except as documented Cardiovascular: Cardiovascular: Reports no additional cardiovascular complaints, Denies chest pain and Denies dyspnea Respiratory: Respiratory: Reports no additional respiratory complaints, Denies chest congestion, Denies cough and Denies dyspnea Gastrointestinal: Gastrointestinal: Reports no additional gastrointestinal complaints, Denies abdominal pain, Denies nausea and Denies vomiting Musculoskeletal: Musculoskeletal: Reports no additional musculoskeletal complaints Integumentary/Breasts: Skin/Breast: Reports system reviewed and no additional complaints, except as docu Neurologic: Reports as per HPI, Reports Abnormal speech present, Reports confusion, Denies dizziness, Denies syncope and Denies weakness Psychiatric: Psychiatric: Reports no additional psychiatric complaints Allergic/Immunologic: Allergic/Immunologic: Reports no additional allergic/immunologic complaints [facility] Past Medical History Medical History Arterial vascular disease Arthritis Chronic anemia Diabetes mellitus with autonomic neuropathy Essential (primary) hypertension Fracture of ankle with nonunion Mixed hyperlipidemia Paroxysmal atrial fibrillation Peripheral autonomic neuropathy due to diabetes mellitus Retained orthopedic hardware Seasonal allergies Traumatic arthritis of right ankle Trimalleolar fracture Type 2 diabetes mellitus without complications Urinary frequency Vision abnormalities Wears glasses Surgical History Surgical History History of prostate biopsy Hx of cholecystectomy Status post open reduction with internal fixation (ORIF) of fracture of ankle Family History Family History Father Diabetes mellitus Hypertension Acute myocardial infarction Cerebrovascular accident Mother Family history of malignant neoplasm Other Breast cancer Social History Social History Social History: Surrogate medical decision maker: Fani Delacruz, spouse. Code status: Full code. Smoking packs per day: 0.5 Smoking cigarettes per day: 10.0 Smoking s
[2023-07-21 13:53] LABS: Glucose Point of Care 167 mg/dl (65-105)
== END 2023-07-21 14:01 | disposition short-term general hospital (02) ==
PROVIDERS: Emergency Provider Nurse Practitioner; PCP Family Medicine
DX: R41.0 Disorientation, unspecified (principal); E11.65 Type 2 diabetes mellitus with hyperglycemia; D64.9 Anemia, unspecified; I10 Essential (primary) hypertension; E78.2 Mixed hyperlipidemia; I48.0 Paroxysmal atrial fibrillation; E11.43 Type 2 diabetes mellitus with diabetic autonomic (poly)neuropathy
CPT/HCPCS: 82948; 99213; G0463

== ENCOUNTER 2023-07-21 14:21 | Observation (INO) | payer MEDICARE, SELFPAY ==
[2023-07-21] VITALS (10 sets, daily range): BP systolic 136–171; BP diastolic 61–69; PULSE 64–85; RESP 16–20; TEMP 35.9–36.6; O2SAT 95–99; BMI 25.4
--- NOTE | ~2023-07-21 | CT_ITS ---
EXAMINATION: CT brain wo con DATE: 07/21/2023 14:39 INDICATION: Acute onset slurred speech. TECHNIQUE: Computed tomography (CT) of the head was performed without intravenous contrast. Sagittal and coronal reconstructions were performed. The mA was adjusted according to patient size. Iterative reconstruction technique was employed. The dose-length product was 681.00 mGy-cm. COMPARISON: head CT dated 02/21/2022 FINDINGS: No acute intracranial hemorrhage, acute infarction or abnormal extra axial fluid collection. There is moderate scattered white matter hypoattenuation consistent with chronic small vessel ischemic diseas e. Ventricles are normal and symmetric. No mass/mass effect. The orbits, paranasal sinuses and masto id air cells are normal. IMPRESSION: 1. No significant change in moderate scattered nonspecific cerebral white matter hypoattenuation cons istent with chronic small vessel ischemic disease. Reviewed, dictated and finalized at location A. [employer] IMPRESSION: 1. No significant change in moderate scattered nonspecific cerebral white matte r hypoattenuation consistent with chronic small vessel ischemic disease.
--- NOTE | ~2023-07-21 | CT_ITS ---
EXAMINATION: CTA brain carotid DATE: 07/21/2023 14:47 INDICATION: Acute cerebrovascular accident. TECHNIQUE: Computed tomographic angiography (CTA) of the head was performed with 100 mL Omnipaque-350 intravenous contrast. CTA of the neck was performed with intravenous contrast. Automated exposure co ntrol and iterative reconstruction technique were employed. The dose-length product was 1059.90 mGy-c m. Maximum intensity projection and volume rendered 3D-reconstructions were created by the [employer] st on a separate workstation. COMPARISON: Head CT 07/21/2023 FINDINGS: HEAD CTA: There are scattered areas of low attenuation in the cerebral white matter. There is no intr acranial hemorrhage, acute infarction, or abnormal intracranial mass lesion. The ventricles are paul l in size. There is mild mucosal thickening in the paranasal sinuses. There was some normal. The mast oid air cells are normal. The vertebral arteries are codominant. There is no significant stenosis of basilar artery or the posterior cerebral arteries. The posterior communicating arteries are normal. T here is no significant stenosis of the intracranial internal carotid arteries or anterior or middle c erebral arteries. Right A1 anterior cerebral artery segment is absent, a normal variant. There is no aneurysm. NECK CTA: There are no pathologically enlarged lymph nodes. There is a 14 mm nodule in right thyroid lobe, likely not clinically significant. There is no significant stenosis of the vertebral arteries. There is plaque in the proximal internal carotid arteries. There is 0% stenosis of the proximal right internal carotid artery relative to normal distal artery lumen diameter (NASCET criteria). There is 0% stenosis of the proximal left internal carotid artery relative to normal distal artery lumen diame ter. There is severe cervical spondylosis. IMPRESSION: 1. Moderate nonspecific cerebral white matter disease, which likely represents chronic small vessel i schemic disease. 2. No aneurysm or significant intracranial arterial stenosis. 3. 0% stenosis of the proximal internal carotid arteries relative to normal distal artery lumen diame ters (NASCET criteria). Reviewed, dictated and finalized at location A. PLANNER IMPRESSION: 1. Moderate nonspecific cerebral white matter disease, which likely represents chronic small vessel ischemic disease. 2. No aneurysm or significant intracranial arterial stenosis. 3. 0% stenosis of the proximal internal carotid arteries relative to normal dis javier artery lumen diameters (NASCET criteria).
--- NOTE | ~2023-07-21 | XR_ITS ---
XR chest 1V portable DATE: 07/21/2023 15:00 INDICATION: Slurred speech. Altered mental status. History of hypertension. TECHNIQUE: Portable AP chest on July 21, 2023 at 1455 hours COMPARISON: April 01, 2023 PA and lateral chest FINDINGS: Chronic rightward shift of heart and mediastinum, right lung volume loss, unchanged since . Heart size appears within normal range. Is aortic calcification. No hilar or mediastinal enlargement is evident. Minimal infiltrate or atelectasis at the lung bases. The lungs otherwise appear clear. Diffuse osteopenia. IMPRESSION: Chronic right lung volume loss compared to left side Minimal infiltrate or atelectasis at the lung bases Aortic calcification Osteopenia Reviewed, dictated and finalized at location L. 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
--- NOTE | ~2023-07-21 | MR_ITS ---
EXAMINATION: MR brain/brain stem wo/w con DATE: 07/21/2023 18:23 INDICATION: Acute stroke with slurred speech TECHNIQUE: Magnetic resonance imaging (MRI) of the brain and brainstem was performed without and with 16 mL Multihance intravenous contrast. Sequences included sagittal and axial T1-weighted SE, axial d iffusion-weighted FS SE, axial T2*-weighted GRE, axial T2-weighted FLAIR, and axial T2-weighted FSE. Postcontrast axial and coronal T1-weighted SE was obtained. Apparent diffusion coefficient (ADC) maps were created. COMPARISON: Head CT and CT angiogram dated 07/21/2023 FINDINGS: There are no areas of restricted diffusion to suggest acute infarction. No acute intracranial hemorrh age or abnormal intracranial mass lesion. Small focus of susceptibility artifact in the right tempora l occipital region without evident correlate on CT imaging which could be related to small amount of hemosiderin the setting of chronic microhemorrhage or potentially minimal dystrophic calcification wi thout evident on the prior CT. There are scattered areas of nonspecific increased T2-weighted signal intensity in the cerebral white matter, predominantly involving the deep and periventricular white ma tter which is within normal limits for age and likely sequela of chronic small vessel ischemic diseas e.. There are no intraparenchymal signal abnormalities seen on the other pulse sequences. The ventric les are symmetric and normal in size. There are no abnormal extra-axial fluid collections. Flow voids are seen in the cerebral arteries on the T2-weighted sequences consistent with their expected patenc y. Visualized orbits and soft tissues are unremarkable. Mild mucosal thickening the bilateral ethmoid sinuses. There are no areas of abnormal enhancement on the post contrast images. IMPRESSION: 1. Moderate scattered nonspecific periventricular predominant white matter T2 hyperintensity which is within normal limits for age and likely sequela of chronic small vessel ischemic disease. No acute i ntracranial process. 2. Tiny focus of susceptibility artifact in the right temporal occipital region which could represent either hemosiderin the setting of chronic microhemorrhage or dystrophic calcification. Reviewed, dictated and finalized at location A. E DISPATCHER IMPRESSION: 1. Moderate scattered nonspecific periventricular predominant white matter T2 h yperintensity which is within normal limits for age and likely sequela of chron ic small vessel ischemic disease. No acute intracranial process. 2. Tiny focus of susceptibility artifact in the right temporal occipital region which could represent either hemosiderin the setting of chronic microhemorrhag e or dystrophic calcification.
--- NOTE | 2023-07-21 14:25 | ECG_ITS ---
Measurements Intervals [place] Rate: 75 P: 29 WI: 147 QRS: -10 QRSD: 97 T: 63 QT: 393 QTc: 440 Interpretive Statements SINUS RHYTHM EARLY PRECORDIAL RS TRANSITION NONSPECIFIC T-WAVE ABNORMALITY ABNORMAL ECG COMPARED TO ECG 07/01/2023 23:03:35 NO SIGNIFICANT CHANGES Electronically Signed On 07-22-2023 7:05:13 NUT PACKER by Meliton Sheehan M.D.
[2023-07-21 14:32] LABS: Glucose Point of Care 172 mg/dl (65-105)
[2023-07-21 14:54] LABS: Estimated Glomerular Filt Rate > 60
[2023-07-21 15:03] LABS: Basophils Percent Auto 0.5 % (0.2-1.2); Eosinophils Absolute Auto 0.2 K/mm3 (0-0.3); Eosinophils Percent Auto 2.9 % (0-4.4); Hematocrit 40.6 % (42.0-52.0); Hemoglobin 12.9 g/dL (14.0-18.0); Immature Granulocyte Absolute 0.03 K/mm3 (0.00-0.031); Immature Granulocyte Percent A 0.5 % (0-0.5); Lymphocytes Percent Auto 12.4 % (18.3-44.2); Mean Corpuscular HGB Conc 31.8 g/dl (32-36); Mean Corpuscular Hemoglobin 28.5 pg (26-34); Mean Corpuscular Volume 89.8 fl (80-100); Mean Platelet Volume 9.7 fl (7.4-10.4); Monocytes Absolute Auto 0.4 K/mm3 (0.1-0.6); Monocytes Percent Auto 5.9 % (2.6-8.5); Neutrophils Percent Auto 77.8 % (45.5-73.1); Platelet Count Result 276 k/mm3 (150-375); Red Blood Count 4.52 M/mm3 (4.6-6.20); Red Cell Distribution Width 13.2 % (11.5-14.5); White Blood Count 6.5 K/mm3 (4.5-10.0)
[2023-07-21 15:12] LABS: INR 0.9; Prothrombin Time 12.8 Seconds (11.1-14.7)
[2023-07-21 15:13] LABS: Partial Thromboplastin Time 28.6 SECONDS (22.3-36.8)
[2023-07-21 15:15] LABS: Alanine Aminotransferase 17 U/L (6-50); Albumin Level 4.2 g/dL (3.5-5.1); Alkaline Phosphatase 111 U/L (38-126); Anion Gap 12 mmol/L (8-16); Aspartate Amino Transferase 30 U/L (17-59); Bilirubin,Total 0.5 mg/dL (0.2-1.3); Blood Urea Nitrogen 11 mg/dL (9-20); Calcium 8.7 mg/dL (8.4-10.2); Carbon Dioxide 26 mmol/L (22-30); Chloride 95 mmol/L (98-107); Estimated CRCL calculation 76 ml/min; Estimated Glomerular Filt Rate > 60; Glucose 171 mg/dL (65-110); Potassium 4.1 mmol/L (3.4-5.0); Sodium 133 mmol/L (137-145)
[2023-07-21 15:25] LABS: Troponin I < 0.012 ng/mL (0.000-0.034)
--- NOTE | 2023-07-21 16:01 | ED.NEUROSD ---
HPI - Neuro Symptoms/Deficit General Chief Complaint: Neuro Symptoms/Deficit Stated Complaint: slurred speech Time Seen by Provider: 07/21/23 14:27 History of Present Illness HPI Narrative: Patient is an 83-year-old male who presents ER with concerns for CVA. He was at lunch at 12:30 p.m. lost the ability to express his speech for about 3 minutes. No facial droop. No focal weakness to an arm or leg. He is on blood thinners. Symptoms are now resolved. He did present urgent care before presenting here. Related Data Home Medications Medication Instructions Recorded Confirmed cetirizine 10 mg tablet (Zyrtec) 10 mg PO DAILY 07/04/19 07/21/23 multivitamin (Multiple Vitamins 1 tablet PO DAILY 02/29/20 07/21/23 tablet) finasteride 5 mg tablet 5 mg PO DAILY 02/26/22 07/21/23 mecobalamin (vitamin B12) 1,000 1,000 mcg PO DAILY 05/18/22 07/21/23 mcg chewable tablet ascorbate calcium (vitamin C) 500 500 mg PO DAILY 04/15/23 07/21/23 mg tablet Allergies Allergy/AdvReac Type Severity Reaction Status Date / Time neomycin Allergy Mild Rash Verified 07/21/23 19:42 Sulfa (Sulfonamide AdvReac Intermediate Nausea Verified 07/21/23 19:42 Antibiotics) Review of Systems Review of Systems: All systems reviewed & are unremarkable except as noted in HPI and below Constitutional: Constitutional: Reports no additional constitutional complaints ENT: Reports system reviewed and no additional complaints, except as documented Cardiovascular: Cardiovascular: Reports no additional cardiovascular complaints Respiratory: Respiratory: Reports no additional respiratory complaints Musculoskeletal: Musculoskeletal: Reports no additional musculoskeletal complaints Neurologic: Denies headache(s), Denies focal weakness and Denies numbness Comments: Endorses expressive aphasia [facility] Past Medical History Medical History Arterial vascular disease Arthritis Chronic anemia Diabetes mellitus with autonomic neuropathy Essential (primary) hypertension Fracture of ankle with nonunion Mixed hyperlipidemia Paroxysmal atrial fibrillation Peripheral autonomic neuropathy due to diabetes mellitus Retained orthopedic hardware Seasonal allergies Traumatic arthritis of right ankle Trimalleolar fracture Type 2 diabetes mellitus without complications Urinary frequency Vision abnormalities Wears glasses Surgical History Surgical History History of prostate biopsy Hx of cholecystectomy Status post open reduction with internal fixation (ORIF) of fracture of ankle Family History Family History Father Diabetes mellitus Hypertension Acute myocardial infarction Cerebrovascular accident Mother Family history of malignant neoplasm Other Breast cancer Social History Social History Social History: Surrogate medical decision maker: Fani Delacruz, spouse. Code status: Full code. Smoking packs per day: 0.5 Smoking cigarettes per day: 10.0 Smoking status: Former smoker Alcohol intake: never Alcohol use details: FEW DRINKS/YEAR Substance use: never Substance use type: does not use Do You Feel Safe in your Home?: Yes Lack of Transportation: No Lack of Food: Never True Current Housing: I Have Housing Concerned About Future Housing: No Difficulty Paying Gas/Electric Bills: No Difficulty Paying for Meds: No Currently Unemployed: No Education: Trade/Vocational Certificate Difficulty w/ Childcare or Family Care: No Living arrangements: with family Occupation/Education: retired Spiritual care concerns: No Exam Narrative: GENERAL: Well-appearing, well-nourished, and in no acute distress. HEAD: Normocephalic, atraumatic. ENT: Mucous membranes moist. NECK: Supple. CH
--- NOTE | 2023-07-21 17:50 | PC.NURSE ---
pt to MRI at this time.
--- NOTE | 2023-07-21 18:08 | PC.NURSE ---
attempted to get report for pt coming from ED, secretary office clerk states that RN is busy with another pt will call back
--- NOTE | 2023-07-21 18:40 | ADMGEN ---
This patient, Meliton Delacruz, was admitted to Medical Room 259-. Patient/family oriented to hospital policies and general routines including ID bracelet, bed and alarms, visiting hours, pain management, procedures, bathroom and other care routines, personal items, smoking policy, room service/diet, and visiting hours. Information on how to activate the Rapid Response Team has been discussed. Patient/Family are encouraged to report perceived risks to care and to ask questions if they do not understand what they are told or what they should do.
--- NOTE | 2023-07-21 20:19 | PC.NURSE ---
preceptor for Perlita Lynch license pending RN, all documentation reviewed, assessments completed as charted
[2023-07-21 21:02] LABS: Glucose Point of Care 238 mg/dl (65-105)
--- NOTE | 2023-07-21 21:59 | PM.IMHP ---
H&P: HPI History of Present Illness Date/Time: 07/21/23 17:45 Chief Complaint: Slurred speech. Narrative: This is a pleasant 83-year-old male with hypertension, hyperlipidemia, type 2 diabetes mellitus, benign prostatic hyperplasia, chronic urinary retention with indwelling catheter, mild memory loss, and anemia who presented to the emergency department via private vehicle from home for evaluation of slurred speech. The patient provides the following history. He was in his usual state of health when he got up this morning. He and his went out to lunch and during the middle of a conversation he started to have garbled speech. ?My mind was normal but my mouth resolved tangled up! He knew what he wanted to say but his words came out as jumbled, garbled speech. This lasted for about 1 to 2 minutes before resolving. did not notice facial droop and the patient denies other symptoms. Specifically he denies vertigo, visual changes, difficulty swallowing, focal weakness, and paresthesias. He has never had similar symptoms. Paroxysmal atrial fibrillation has been previously documented in his record however it is poorly documented, I was unable to find an EKG substantiate this diagnosis, and both the patient and his deny history of such. He denies sensations of racing heart, palpitations, and fluttering in the chest. Vital signs were stable on arrival to the ED. Head and neck CTA did not show any acute findings, aneurysms, occlusions, or significant stenosis. He is being admitted in this setting for stroke workup and neurology consultation. Review of Systems Review of Systems: Twelve systems were reviewed and are negative except for as per HPI. [facility] Past Medical History Medical History (Updated 07/21/23 @ 22:11 by Nat Wolff PA-C) Arterial vascular disease Arthritis Benign prostatic hyperplasia Chronic anemia Essential (primary) hypertension Fracture of ankle with nonunion Mixed hyperlipidemia Peripheral autonomic neuropathy due to diabetes mellitus Seasonal allergies Traumatic arthritis of right ankle Trimalleolar fracture Type 2 diabetes mellitus Vision abnormalities Wears glasses Surgical History Surgical History History of prostate biopsy Hx of cholecystectomy Status post open reduction with internal fixation (ORIF) of fracture of ankle Family History Family History Father Diabetes mellitus Hypertension Acute myocardial infarction Cerebrovascular accident Mother Family history of malignant neoplasm Other Breast cancer Social History Social History Social History: Surrogate medical decision maker: Fani Delacruz, spouse. Code status: Full code. Smoking packs per day: 0.5 Smoking cigarettes per day: 10.0 Smoking status: Former smoker Alcohol intake: never Alcohol use details: FEW DRINKS/YEAR Substance use: never Substance use type: does not use Do You Feel Safe in your Home?: Yes Lack of Transportation: No Lack of Food: Never True Current Housing: I Have Housing Concerned About Future Housing: No Difficulty Paying Gas/Electric Bills: No Difficulty Paying for Meds: No Currently Unemployed: No Education: Trade/Vocational Certificate Difficulty w/ Childcare or Family Care: No Living arrangements: with family Occupation/Education: retired Spiritual care concerns: No Meds Home Medications and Allergies Home Medications Medication Instructions Recorded Confirmed Type cetirizine 10 mg tablet (Zyrtec) 10 mg PO DAILY 07/04/19 07/21/23 History multivitamin (Multiple Vitamins 1 tablet PO DAILY 02/29/20 07/21/23 History tablet) finasteride 5 mg tablet 5 mg PO DAILY 02/26/22 07/21/23 History mecobalamin (vitamin B12) 1,000 1,000 mcg PO DAILY 05/18/22 07/21/23 History mcg ch
[2023-07-22] VITALS (10 sets, daily range): BP systolic 130–166; BP diastolic 70–74; PULSE 60–75; RESP 16–18; TEMP 36.1–36.3; O2SAT 98–100
[2023-07-22 05:47] LABS: Anion Gap 6 mmol/L (8-16); Blood Urea Nitrogen 9 mg/dL (9-20); Calcium 8.3 mg/dL (8.4-10.2); Carbon Dioxide 29 mmol/L (22-30); Chloride 99 mmol/L (98-107); Cholesterol 82 mg/dL (0-200); Estimated CRCL calculation 76 ml/min; Estimated Glomerular Filt Rate > 60; Glucose 108 mg/dL (65-110); HDL Direct 31 mg/dL; Magnesium 1.7 mg/dL (1.6-2.3); Potassium 3.8 mmol/L (3.4-5.0); Sodium 134 mmol/L (137-145); Triglycerides 67 mg/dL (<150)
[2023-07-22 05:57] LABS: LDL Cholesterol Direct 47 mg/dL
--- NOTE | 2023-07-22 06:00 | ECHO_ITS ---
Patient Info Name: Meliton Delacruz Age: 83 years : 1940 Gender: Male Ht: 72 in Wt: 187 lbs BSA: 2.08 m2 HR: 67 bpm BP: 130 / 74 mmHg Heart Rhythm: Sinus Rhythm Technical Quality: Fair Exam Date: 07/22/2023 10:53 AM Exam Location: Echo Lab Exam Room: 259 Patient Status: Inpatient Admit Date: 07/21/2023 Staff Ordering Physician: Sreedhar Cox MD Press Setup Operator: iQng Huang RDCS Attending Provider: Tha Lutz MD Referring Physician: Kenny RAMSAY; Exam Type: CA echo dop bubble study w con Study Info Indications - stroke symptoms Complete two-dimentional, color flow and Doppler transthoracic echocardiogram is performed with agitated saline and with contrast to opacify the left ventricle and to improve the delineation of the left ventricle endocardial borders. Contrast/Agitated Saline Contrast/Ag. Saline: Definity Amount: 2.00 ml Administered By: Qing Huang [facility] Existing IV Access: Yes IV Access Condition: patent with no signs of infiltration Summary 1. Mild concentric left ventricular hypertrophy with normal systolic function and grade 1 diastolic noncompliance. 2. Mild left atrial enlargement. 3. Sclerotic aortic valve with well maintained leaflet excursion and trivial AI. 4. Agitated saline contrast exam demonstrates no intracardiac shunt. Left Ventricle Left ventricular chamber dimension is normal. Left ventricular systolic function is normal, estimated at 55-60%. There is mild concentric increased left ventricular wall thickness. The left ventricular diastolic function is grade I diastolic dysfunction. Right Ventricle Right ventricular chamber dimension is normal. Left Atria Left atrial chamber dimension is mildly enlarged. Right Atria Right atrial chamber dimension is normal. Atrial Septum Intact interatrial septum visualized by agitated saline imaging. Aortic Valve The aortic valve is trileaflet. There is mild aortic valve sclerosis. There is trace aortic valve regurgitation. Pulmonic Valve The pulmonic valve is normal. Mitral Valve The mitral valve has normal leaflets. Tricuspid Valve The tricuspid valve leaflets are normal. Pericardium/Pleural The pericardium appears normal. Aorta The aortic root size at the sinus of Valsalva is normal. Left Ventricular Outflow Tract Name Value Normal LVOT 2D LVOT Diameter 2.1 cm LVOT Doppler LVOT Peak Gradient 4 mmHg LVOT Mean Gradient 2 mmHg LVOT VTI 23 cm LVOT VTI/AV VTI Ratio 0.5 LVOT Stroke Volume 81 ml LVOT CO 15.9 l/min LVOT CI 7.7 l/min/m2 Pulmonic Valve Name Value Normal PV Doppler PV Peak Gradient 3 mmHg Mitral Valve
[2023-07-22 08:13] LABS: Glucose Point of Care 114 mg/dl (65-105)
[2023-07-22 08:46] LABS: Magnesium 1.8 mg/dL (1.6-2.3); Phosphorus 3.7 mg/dL (2.5-4.5)
--- NOTE | 2023-07-22 09:24 | WPDNEURCNPN ---
Assessment and Plan Assessment and plan (1) Transient speech disturbance: Code(s): R47.9 - Unspecified speech disturbances Status: Acute (2) Type 2 diabetes mellitus: Code(s): E11.9 - Type 2 diabetes mellitus without complications Status: Acute (3) Mixed hyperlipidemia: Code(s): E78.2 - Mixed hyperlipidemia Status: Acute (4) Essential (primary) hypertension: Code(s): I10 - Essential (primary) hypertension Status: Acute (5) Brain TIA: Code(s): G45.9 - Transient cerebral ischemic attack, unspecified Status: Acute Plan Meliton Delacruz is a 83 year old male with a history of hypertension, hyperlipidemia, diabetes, urinary retention with indwelling catheter, and questionable history of atrial fibrillation presenting due to an episode of expressive aphasia. MRI brain is negative for acute stroke. Suspect TIA. No evidence of significant stenosis in the extracranial and intracranial arteries on CTA brain/carotid. LDL is within range. BP is not very well controlled. ABCD2 score is 4, which necessitates DAPT x 3 weeks. 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 If he does not have a history of atrial fibrillation, he will need long term care administrator cardiac rhythm monitoring with Holter or Loop. Consult date: 07/22/23 Reason for consult: TIA/speech disturbance HPI: Meliton Delacruz is a 83 year old male with a history of hypertension, hyperlipidemia, diabetes, urinary retention with indwelling catheter, and ?atrial fibrillation presenting due to an episode of transient speech disturbance. Patient was in his usual state of health on 07/21 when he woke up. He went out to lunch with his and in the middle of coversation, started to have garbled speech. He reports that his mentation was normal and he could think of the word, but the words came out garbled. This lasted for about 1-2 minutes before self-resolving. He did not have any other focal symptoms at the time such as facial droop, or unilateral weakness/numbness, or vision change. He presented to [place] ED where he was still at baseline. His EKG showed sinus rhythm. CT head was negative for any acute changes. CTA brain/carotid was negative for any significant stenosis or occlusion. MRI brain is negative for acute stroke. BP has ranged from 130s to 170s systolic during this admission. He did come to the ER on 07/19 for problems with his Ahum[place] and his BP is documented up to 190s systolic during that admission. His LDL is 47 -- he takes Lipitor 10mg daily. His A1c from this admission is 7.0. I do not see any blood thinners in his medication list. There is a history of atrial fibrillation listed in his problem list, but patient nor his are aware of the diagnosis and the hospitalist cannot find an EKG that would support the diagnosis. Review of Systems Review of Systems: All systems reviewed & are unremarkable except as noted in HPI and below PMFSH Past Medical History Medical History Arterial vascular disease Arthritis Benign prostatic hyperplasia Chronic anemia Essential (primary) hypertension Fracture of ankle with nonunion Mixed hyperlipidemia Peripheral autonomic neuropathy due to diabetes mellitus Seasonal allergies Traumatic arthritis of right ankle Trimalleolar fracture Type 2 diabetes mellitus Vision abnormalities Wears glasses Surgical History Surgical History History of prostate biopsy Hx of cholecystectomy Status post open reduction with internal fixation (ORIF) of fracture of ankle Fa
[2023-07-22] MEDS: CYANOCOBALAMIN 1,000 MCG TABLET 1000 MCG PO (09:32)
[2023-07-22] MEDS: FERROUS SULFATE 325 MG TABLET DR PO (09:32)
[2023-07-22] MEDS: MULTIVITAMINS THERAPEUTIC TAB (*BKC) 1 TABLET PO (09:32)
[2023-07-22] MEDS: ASPIRIN 81 MG ENTERIC TABLET PO (09:32)
[2023-07-22] MEDS: ASCORBIC ACID 500 MG TABLET PO (09:32)
[2023-07-22] MEDS: FINASTERIDE 5 MG TABLET PO (09:32)
[2023-07-22] MEDS: LORATADINE 10 MG TABLET PO (09:32)
[2023-07-22] MEDS: amLODIPine BESYLATE 5 MG TABLET PO (09:32)
[2023-07-22] MEDS: lisinopriL 10 MG TABLET PO (09:32)
[2023-07-22] MEDS: PANTOPRAZOLE 40 MG TABLET PO (09:37)
[2023-07-22] MEDS: FLUTICASONE PROPIONATE 0.05% NA SPR 16 GM BTL (*BKC) 1 SPRAY NASAL ×2 (09:37→20:05)
[2023-07-22] MEDS: PERFLUTREN LIPID MICROSPHERES 1.5 ML VIAL DILUTED TO 10 ML TOTAL VOLUME IV PUSH (11:50)
[2023-07-22 12:05] LABS: Glucose Point of Care 104 mg/dl (65-105)
--- NOTE | 2023-07-22 12:07 | IVDEFINITY ---
Prior to administration of IV Definity the patient was educated on the risks and benefits of the imaging enhancing agent including potential adverse side effects. The patient verbalized understanding. Allergies were verified. No exclusion criteria were identified and at least one of the following inclusion criteria were met: 1) physician request, 2) patient technically difficult to image (per the [place] [employer]chocardi[employer] guidelines of two or more segments not discernable within the apical view), or 3) questionable left ventricular function. ?
--- NOTE | 2023-07-22 14:15 | PC.NURSE ---
Faxed medical records release to [facility] cardiology
--- NOTE | 2023-07-22 16:20 | PM.IMPN ---
Progress Note: A&P Assessment and Plan (1) Transient speech disturbance: Code(s): R47.9 - Unspecified speech disturbances Status: Acute (2) Benign prostatic hyperplasia: Code(s): N40.0 - Benign prostatic hyperplasia without lower urinary tract symptoms Status: Acute (3) Type 2 diabetes mellitus: Code(s): E11.9 - Type 2 diabetes mellitus without complications Status: Acute (4) Mixed hyperlipidemia: Code(s): E78.2 - Mixed hyperlipidemia Status: Acute (5) Gastro-esophageal reflux disease without esophagitis: Code(s): K21.9 - Gastro-esophageal reflux disease without esophagitis Status: Acute (6) Essential (primary) hypertension: Code(s): I10 - Essential (primary) hypertension Status: Acute (7) Aortic stenosis: Onset Date: ~08/05/21 Qualifiers: Cardiac valve disease etiology: etiology unspecified Qualified Code(s): I35.0 - Nonrheumatic aortic (valve) stenosis Code(s): I35.0 - Nonrheumatic aortic (valve) stenosis Status: Acute (8) Diabetes mellitus with autonomic neuropathy: Qualifiers: Diabetes mellitus type: type 2 Diabetes mellitus terminal superintendent insulin use: without fdc use Qualified Code(s): E11.43 - Type 2 diabetes mellitus with diabetic autonomic (poly)neuropathy Code(s): E11.43 - Type 2 diabetes mellitus with diabetic autonomic (poly)neuropathy Status: Acute (9) Peripheral autonomic neuropathy due to diabetes mellitus: Qualifiers: Diabetes mellitus type: type 2 Qualified Code(s): E11.43 - Type 2 diabetes mellitus with diabetic autonomic (poly)neuropathy Code(s): E11.43 - Type 2 diabetes mellitus with diabetic autonomic (poly)neuropathy Status: Acute (10) Arterial vascular disease: Code(s): I70.90 - Unspecified atherosclerosis Status: Acute (11) HTN (hypertension): Code(s): I10 - Essential (primary) hypertension Status: Acute (12) Arthritis: Code(s): M19.90 - Unspecified osteoarthritis, unspecified site Status: Acute (13) HTN (hypertension): Code(s): I10 - Essential (primary) hypertension Status: Acute (14) Diabetes mellitus type 2 in nonobese: Code(s): E11.9 - Type 2 diabetes mellitus without complications Status: Acute Subjective Date/time seen: 07/22/23 16:20 Interval history: Patient is seen and evaluated bedside. His speech is back to normal. He is undergoing workup ordered by Neurology. Review of Systems Review of Systems: 14 systems were reviewed with pertinent positives and negatives per HPI. Except as documented in the HPI/progress notes, all other systems were reviewed and are negative. All systems reviewed & are unremarkable except as noted in HPI and below Exam Narrative: PHYSICAL EXAMINATION: Vital signs: Please see the chart General physical exam: Patient lying in bed, pleasant and cooperative on exam, appears in no acute distress Head/eyes: Atraumatic, EOMI, PERRLA ENT: Moist mucous membranes, nasal passages clear Neck: Supple, full range of motion, trachea midline CVS: S1 + S2, regular rate and rhythm, +3/6 systolic ejection murmur Respiratory: Bilaterally fair air entry in both lung may, mild B/L crackles, symmetric chest expansion, no distress Abdomen: Soft, non-tender, bowel sounds +ve, no organomegaly Extremities: No clubbing, no cyanosis, no edema, no calf tenderness Musculoskeletal: Moves all, adequate range of motion, no muscle spasms Skin: Warm, dry, no jaundice, no cyanosis Neurological: Awake, alert, oriented x 3, cranial nerves II-XII intact, no focal neurological deficits Psychiatric: Normal mood, non suicidal Objective Data Vital Signs Vital Signs: Vital Signs - 24 hr 07/21/23 16:50 07/21/23 17:50 07/21/23 19:14 Temperature 36.0 C L Pulse Rate 73 70 64 Respiratory Rate 20 17 16 Blood Pressure 137/67 136/67 146/69 H Pulse Oxime
[2023-07-22 17:36] LABS: Glucose Point of Care 132 mg/dl (65-105)
[2023-07-22] MEDS: ATORVASTATIN 10 MG TABLET PO (20:05)
[2023-07-22] MEDS: MORPHINE SULFATE (*CRX) 2 MG/ML INJ IV PUSH (20:07)
[2023-07-22 20:54] LABS: Glucose Point of Care 176 mg/dl (65-105)
[2023-07-23] VITALS: PULSE 65
[2023-07-23 04:00] VITALS: PULSE 66
[2023-07-23 06:00] VITALS: BP 161/78; PULSE 70; RESP 18; TEMP 36.3; O2SAT 99
[2023-07-23 08:00] VITALS: PULSE 63
[2023-07-23 08:13] LABS: Glucose Point of Care 137 mg/dl (65-105)
--- NOTE | 2023-07-23 08:24 | WPDNEUROPN ---
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 questionable history of atrial fibrillation presenting due to an episode of expressive aphasia. MRI brain is negative for acute stroke. Suspect TIA. No evidence of significant stenosis in the extracranial and intracranial arteries on CTA brain/carotid. LDL is within range. BP is not very well controlled. ABCD2 score is 4, which necessitates DAPT x 3 weeks. 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 If patient has a history of atrial fibrillation, then he would have to be started on anticoagulation given the TIA. If he does not have a history of atrial fibrillation,? he will need prison cardiac rhythm monitoring with Holter or Loop.? - Follow-up in [facility] clinic in 2-3 months Subjective Date/time seen: 07/23/23 08:24 Interval history: Meliton Delacruz is a 83 year old male with a history of hypertension, hyperlipidemia, diabetes, urinary retention with indwelling catheter, and ?atrial fibrillation presenting due to an episode of transient speech disturbance. Patient was in his usual state of health on 07/21 when he woke up. He went out to lunch with his and in the middle of coversation, started to have garbled speech. He reports that his mentation was normal and he could think of the word, but the words came out garbled. This lasted for about 1-2 minutes before self-resolving. He did not have any other focal symptoms at the time such as facial droop, or unilateral weakness/numbness, or vision change. He presented to [place] ED where he was still at baseline. His EKG showed sinus rhythm. CT head was negative for any acute changes. CTA brain/carotid was negative for any significant stenosis or occlusion. MRI brain is negative for acute stroke. BP has ranged from 130s to 170s systolic during this admission. He did come to the ER on 07/19 for problems with his Ahum[place] and his BP is documented up to 190s systolic during that admission. His LDL is 47 -- he takes Lipitor 10mg daily. His A1c from this admission is 7.0. I do not see any blood thinners in his medication list. There is a history of atrial fibrillation listed in his problem list, but patient nor his are aware of the diagnosis and the hospitalist cannot find an EKG that would support the diagnosis. Surface echocardiogram showed mild L atrial enlargement, EF 55-60% without evidence of shunt. Blood pressure has been up to 160s systolic in the past day. Review of Systems Review of Systems: All systems reviewed & are unremarkable except as noted in HPI and below Exam Const: General: comfortable and no acute distress HENMT: Mouth: Yes moist mucous membranes Eyes: Pupils: Equal, round and reactive pupils present EOM: EOMs intact bilaterally Resp: Effort & Inspection: normal respiratory effort Skin: General skin exam: normal color Neuro: Oth
[2023-07-23 09:30] VITALS: BP 143/66; PULSE 64; RESP 16; O2SAT 98
[2023-07-23] MEDS: FINASTERIDE 5 MG TABLET PO (09:37)
[2023-07-23] MEDS: ASCORBIC ACID 500 MG TABLET PO (09:37)
[2023-07-23] MEDS: CYANOCOBALAMIN 1,000 MCG TABLET 1000 MCG PO (09:37)
[2023-07-23] MEDS: amLODIPine BESYLATE 5 MG TABLET PO (09:37)
[2023-07-23] MEDS: ASPIRIN 81 MG ENTERIC TABLET PO (09:37)
[2023-07-23] MEDS: FERROUS SULFATE 325 MG TABLET DR PO (09:37)
[2023-07-23] MEDS: CLOPIDOGREL BISULFATE 75 MG TABLET PO (09:37)
[2023-07-23] MEDS: FLUTICASONE PROPIONATE 0.05% NA SPR 16 GM BTL (*BKC) 1 SPRAY NASAL (09:37)
[2023-07-23] MEDS: MULTIVITAMINS THERAPEUTIC TAB (*BKC) 1 TABLET PO (09:37)
[2023-07-23] MEDS: lisinopriL 10 MG TABLET PO (09:37)
[2023-07-23 09:43] VITALS: O2SAT 98
--- NOTE | 2023-07-23 10:16 | PM.DS ---
DS: Admitting Diagnosis Discharge Date 07/23/2023 Admitting Diagnosis Transient speech disturbance, hypertension, type 2 diabetes mellitus, BPH DS: Discharge Diagnosis Discharge Diagnosis (1) Brain TIA: Code(s): G45.9 - Transient cerebral ischemic attack, unspecified Status: Acute (2) Transient speech disturbance: Code(s): R47.9 - Unspecified speech disturbances Status: Acute (3) Benign prostatic hyperplasia: Code(s): N40.0 - Benign prostatic hyperplasia without lower urinary tract symptoms Status: Acute (4) Type 2 diabetes mellitus: Code(s): E11.9 - Type 2 diabetes mellitus without complications Status: Acute (5) Hypertension: Qualifiers: Hypertension type: primary hypertension Qualified Code(s): I10 - Essential (primary) hypertension Code(s): I10 - Essential (primary) hypertension Status: Chronic DS: Summary Hospital Course Hospital Course: This is an 83-year-old male patient past history hypertension GERD BPH seasonal allergies was to the hospital after transient alteration in his speech. Patient states that he could think the right words but he could not get any words to come out what vocalization he did make was diversion garbled. This lasted a very brief time before he returned to normal. Patient came to hospital to be was admitted stroke/TIA workup. CT of the head CTA of the head neck and MRI all without signs of acute stroke. EKG and telemetry were abnormal but not atrial fib. Patient was evaluated by Neurology who recommended dual antiplatelet therapy for 3 weeks and Holter monitor to assess for atrial fibrillation which worried would require anticoagulation. Attempted to place a Holter before patient left but none were available. Prescription written and patient instructed to follow up with Neurology, his net maker as well as his primary care provider. Patient and his expressed understanding and were thankful to be discharged. Status at Discharge Cognitive/behavioral status at discharge: Awake alert oriented and pleasant Functional status at discharge: independent ambulation Overall status at discharge: patient is back to baseline Time Spent with Patient Time attestation: Total time spent providing and/or coordinating discharge services: 35 minutes Exam Narrative: GENERAL: Well-appearing, well-nourished, and in no acute distress. HEAD: Normocephalic, atraumatic. ENT:? Mucous membranes moist. CHEST: Clear to auscultation.? No respiratory distress. HEART: Regular rate and irregular rhythm. ? Normal peripheral pulses. Sinus rhythm with frequent premature beats consistent with prior EKGs for several years ABDOMEN: Soft, nontender, nondistended. EXTREMITIES: Normal range of motion. No peripheral edema. SKIN: Warm dry normal color NEURO: Alert and oriented x3. Pupils equal and reactive bilaterally, EOMI, face symmetric, facial sensation intact, tongue protrudes midline, palate midline. Shoulder shrug normal. Strength 5/5 throughout. Sensation intact throughout, FNF normal bilaterally. Language comprehension and fluency intact. Gait deferred. PSYCH: Normal mood and affect Skin: General skin exam: normal color Psych: Affect: normal affect DS: Data Data Completed and Pending Completed studies during hospitalization: Head CT, CTA head neck, chest x-ray, brain MRI and echocardiogram with bubble study Pending studies at discharge: Holter monitor ordered Labs on day of discharge: Labs from last 24 hours 07/23/23 07/22/23 07/22/23 08:08 20:51 17:23 POC Capillary Glucose 137 H 176 H 132 H 07/22/23 12:00 POC Capillary Glucose 104 Imaging Radiologist's impression: Exam Type: ? ? CA echo dop bubble study w con Study Info Indications ?? ? - stroke symptoms Complete two-dimentional, color flow and Doppler transthoracic echocardiogram is performed with agitated saline and with contrast to opa
[2023-07-23 12:25] LABS: Glucose Point of Care 144 mg/dl (65-105)
== END 2023-07-23 13:56 | disposition home or self-care (01) ==
LOC: ANHED 15:25 → ANH2MED 18:57 → ANH3MEDSUR 07-25 07:55
PROVIDERS: Physician Assistant; Admitting Provider Family Medicine; Emergency Provider Emergency Medicine; PCP Family Medicine; Visit Provider Hospitalist
DX: G45.9 Transient cerebral ischemic attack, unspecified (principal); N40.1 Benign prostatic hyperplasia with lower urinary tract symptoms; R33.8 Other retention of urine; Z96.0 Presence of urogenital implants; E11.43 Type 2 diabetes mellitus with diabetic autonomic (poly)neuropathy; I11.9 Hypertensive heart disease without heart failure; D64.9 Anemia, unspecified; I77.9 Disorder of arteries and arterioles, unspecified; K21.9 Gastro-esophageal reflux disease without esophagitis; J98.4 Other disorders of lung; E78.2 Mixed hyperlipidemia; I48.0 Paroxysmal atrial fibrillation; I35.0 Nonrheumatic aortic (valve) stenosis; R41.3 Other amnesia; R94.31 Abnormal electrocardiogram [ECG] [EKG]; I70.0 Atherosclerosis of aorta; M19.90 Unspecified osteoarthritis, unspecified site; J30.2 Other seasonal allergic rhinitis; M85.80 Other specified disorders of bone density and structure, unspecified site; Z79.84 Long term (current) use of oral hypoglycemic drugs; Z87.891 Personal history of nicotine dependence; Z79.899 Other long term (current) drug therapy; Z83.3 Family history of diabetes mellitus; Z82.49 Family history of ischemic heart disease and other diseases of the circulatory system
CPT/HCPCS: 36415; 70450; 70496; 70498; 70553; 71045; 80048; 80053; 80061; 82948; 83036; 83735; 84100; 84443; 84484; 85025; 85610; 85730; 93005; 96375; 99285; A9270; A9577; C8929; G0378; J2270; Q9957; Q9967

== ENCOUNTER 2023-07-28 08:44 | Outpatient (CLI) | payer MEDICARE, SELFPAY ==
[2023-07-28 19:22] LABS: Alanine Aminotransferase 15 U/L (6-50); Albumin Level 3.7 g/dL (3.5-5.1); Alkaline Phosphatase 104 U/L (38-126); Anion Gap 4 mmol/L (8-16); Aspartate Amino Transferase 46 U/L (17-59); Bilirubin,Total 0.6 mg/dL (0.2-1.3); Blood Urea Nitrogen 13 mg/dL (9-20); Calcium 8.7 mg/dL (8.4-10.2); Carbon Dioxide 31 mmol/L (22-30); Chloride 99 mmol/L (98-107); Cholesterol 90 mg/dL (0-200); Estimated Glomerular Filt Rate > 60; Glucose 108 mg/dL (65-110); HDL Direct 36 mg/dL; Potassium 4.2 mmol/L (3.4-5.0); Sodium 134 mmol/L (137-145); Triglycerides 71 mg/dL (<150)
[2023-07-28 19:33] LABS: LDL Cholesterol Direct 49 mg/dL
[2023-07-28 19:37] LABS: Basophils Absolute Auto 0.1 K/mm3 (0.0-0.1); Basophils Percent Auto 1.2 % (0.2-1.2); Eosinophils Absolute Auto 0.1 K/mm3 (0-0.3); Hematocrit 38.6 % (42.0-52.0); Hemoglobin 12.1 g/dL (14.0-18.0); Immature Granulocyte Absolute 0.01 K/mm3 (0.00-0.031); Immature Granulocyte Percent A 0.2 % (0-0.5); Lymphocytes Absolute Auto 0.99 K/mm3 (0.9-3.2); Lymphocytes Percent Auto 15.2 % (18.3-44.2); Mean Corpuscular HGB Conc 31.3 g/dl (32-36); Mean Corpuscular Hemoglobin 28.6 pg (26-34); Mean Corpuscular Volume 91.3 fl (80-100); Mean Platelet Volume 10.2 fl (7.4-10.4); Monocytes Absolute Auto 0.4 K/mm3 (0.1-0.6); Monocytes Percent Auto 6.7 % (2.6-8.5); Neutrophils Absolute Auto 4.9 K/mm3 (1.3-6.7); Neutrophils Percent Auto 74.7 % (45.5-73.1); Platelet Count Result 295 k/mm3 (150-375); Red Blood Count 4.23 M/mm3 (4.6-6.20); Red Cell Distribution Width 13.1 % (11.5-14.5); White Blood Count 6.5 K/mm3 (4.5-10.0)
== END 2023-07-28 08:45 | disposition home or self-care (01) ==
LOC: ANHGOSHLAB 08:46
PROVIDERS: PCP Family Medicine; Visit Provider Family Medicine
DX: E11.43 Type 2 diabetes mellitus with diabetic autonomic (poly)neuropathy (principal); E78.5 Hyperlipidemia, unspecified
CPT/HCPCS: 36415; 80053; 80061; 83036; 85025

== ENCOUNTER 2023-08-26 21:32 | Emergency (ER) | payer MEDICARE, SELFPAY ==
[2023-08-26 21:32] VITALS: BP 166/97; PULSE 86; RESP 16; TEMP 36.7; O2SAT 100
--- NOTE | 2023-08-26 22:18 | PC.NURSE ---
patient states he got his mariee replaced at his urologists office today. cath was not draining urine. mariee replaced at patients request and is now draining
--- NOTE | 2023-08-26 22:54 | ED.MALEGU ---
HPI - Male Genitourinary General Chief complaint: Urogenital-Male Stated complaint: clogged catheter Time Seen by Provider: 08/26/23 22:08 Source: patient Mode of arrival: ambulatory Limitations: no limitations History of Present Illness HPI Narrative: this is a 83-year-old male that presents to the emergency department for Ahumada catheter malfunction. Reports his urinary catheter is not draining. No other concerns at this time. Denies fevers, flank pain, or vomiting. Related Data Home Medications Medication Instructions Recorded Confirmed cetirizine 10 mg tablet (Zyrtec) 10 mg PO DAILY 07/04/19 08/10/23 multivitamin (Multiple Vitamins 1 tablet PO DAILY 02/29/20 08/10/23 tablet) finasteride 5 mg tablet 5 mg PO DAILY 02/26/22 08/10/23 mecobalamin (vitamin B12) 1,000 1,000 mcg PO DAILY 05/18/22 08/10/23 mcg chewable tablet ascorbate calcium (vitamin C) 500 500 mg PO DAILY 04/15/23 08/10/23 mg tablet Allergies Allergy/AdvReac Type Severity Reaction Status Date / Time neomycin Allergy Mild Rash Verified 08/26/23 21:34 Sulfa (Sulfonamide AdvReac Intermediate Nausea Verified 08/26/23 21:34 Antibiotics) Review of Systems Review of Systems: CONSTITUTIONAL: Denies fever GASTROINTESTINAL: Denies abdominal pain, nausea, vomiting GENITOURINARY: Denies dysuria or hematuria. All systems reviewed & are unremarkable except as noted in HPI and below PMFSH Past Medical History Medical History Arterial vascular disease Arthritis Benign prostatic hyperplasia Chronic anemia Essential (primary) hypertension Fracture of ankle with nonunion Mixed hyperlipidemia Peripheral autonomic neuropathy due to diabetes mellitus Seasonal allergies Traumatic arthritis of right ankle Trimalleolar fracture Type 2 diabetes mellitus Vision abnormalities Wears glasses Surgical History Surgical History History of prostate biopsy Hx of cholecystectomy Status post open reduction with internal fixation (ORIF) of fracture of ankle Family History Family History Father Diabetes mellitus Hypertension Acute myocardial infarction Cerebrovascular accident Mother Family history of malignant neoplasm Other Breast cancer Social History Social History Social History: Surrogate medical decision maker: Fani Delacruz, spouse. Code status: Full code. Smoking packs per day: 0.5 Smoking cigarettes per day: 10.0 Smoking status: Former smoker Alcohol intake: never Alcohol use details: FEW DRINKS/YEAR Substance use: never Substance use type: does not use Do You Feel Safe in your Home?: Yes Lack of Transportation: No Lack of Food: Never True Current Housing: I Have Housing Concerned About Future Housing: No Difficulty Paying Gas/Electric Bills: No Difficulty Paying for Meds: No Currently Unemployed: No Education: Trade/Vocational Certificate Difficulty w/ Childcare or Family Care: No Living arrangements: with family Occupation/Education: retired Spiritual care concerns: No Exam Narrative: GENERAL: Well-appearing, well-nourished, and in no acute distress. HEAD: Normocephalic, atraumatic. EYES: EOMI. CHEST: Clear to auscultation. No respiratory distress. No wheezes rales or rhonchi HEART: Regular rate and rhythm. No murmur heard. Normal peripheral pulses. ABDOMEN: Soft, nontender, nondistended, normal active bowel sounds. EXTREMITIES: Normal range of motion. No edema. SKIN: Warm, dry, no rash. NEURO: No focal deficits. Alert and oriented x3. PSYCH: Normal mood and affect Course Course Emergency Course: Patient and family agree with plan of care Vital Signs Vital signs: Vital Signs Temperature 98.1 F 08/26/23 21:32 Pulse Rate 86 03/0
== END 2023-08-26 23:00 | disposition home or self-care (01) ==
PROVIDERS: Emergency Provider Physician Assistant; PCP Family Medicine
DX: T83.098A Other mechanical complication of other urinary catheter, initial encounter (principal); I10 Essential (primary) hypertension; E78.2 Mixed hyperlipidemia; E11.43 Type 2 diabetes mellitus with diabetic autonomic (poly)neuropathy; I77.9 Disorder of arteries and arterioles, unspecified; D64.9 Anemia, unspecified; N40.0 Benign prostatic hyperplasia without lower urinary tract symptoms; Z87.891 Personal history of nicotine dependence; Z90.49 Acquired absence of other specified parts of digestive tract; Y84.6 Urinary catheterization as the cause of abnormal reaction of the patient, or of later complication, without mention of misadventure at the time of the procedure; Z79.82 Long term (current) use of aspirin; Z79.84 Long term (current) use of oral hypoglycemic drugs
CPT/HCPCS: 51702; 99283

== ENCOUNTER 2023-08-31 15:55 | Emergency (ER) | payer MEDICARE, SELFPAY ==
[2023-08-31 16:00] VITALS: BP 163/72; PULSE 73; RESP 16; TEMP 36.6; O2SAT 98
[2023-08-31 16:04] VITALS: BP 163/72; PULSE 80; RESP 16; O2SAT 98
[2023-08-31 16:16] VITALS: BP 140/69; PULSE 73; RESP 14; O2SAT 99
--- NOTE | 2023-08-31 16:48 | ED.GENADULT ---
HPI - General Adult General Chief complaint: Environmental Exposure Stated complaint: drug exposure Time Seen by Provider: 08/31/23 16:01 History of Present Illness HPI narrative: Patient presents here with this patient of any numbness she and tingling to his fingertips this seems to move up his arms, on both sides. This started after he picked up a dollar bill on the ground, in an area with known drug dealers. He became extremely anxious and took some of his anxiety medication which did help. Related Data Home Medications Medication Instructions Recorded Confirmed cetirizine 10 mg tablet (Zyrtec) 10 mg PO DAILY 07/04/19 08/31/23 multivitamin (Multiple Vitamins 1 tablet PO DAILY 02/29/20 08/31/23 tablet) finasteride 5 mg tablet 5 mg PO DAILY 02/26/22 08/31/23 mecobalamin (vitamin B12) 1,000 1,000 mcg PO DAILY 05/18/22 08/31/23 mcg chewable tablet ascorbate calcium (vitamin C) 500 500 mg PO DAILY 04/15/23 08/31/23 mg tablet Allergies Allergy/AdvReac Type Severity Reaction Status Date / Time neomycin Allergy Mild Rash Verified 08/31/23 11:06 Sulfa (Sulfonamide AdvReac Intermediate Nausea Verified 08/31/23 11:06 Antibiotics) Review of Systems Review of Systems: CONST: No fever. HEENT: No sore throat C/V: No chest pain RESP: No cough GI: No abdominal pain : No dysuria. M/S: No joint pain. SKIN: No rash. NEURO: Tingling in both hands PSYCH: Anxiety PMFSH Past Medical History Medical History Arterial vascular disease Arthritis Benign prostatic hyperplasia Chronic anemia Essential (primary) hypertension Fracture of ankle with nonunion Mixed hyperlipidemia Peripheral autonomic neuropathy due to diabetes mellitus Seasonal allergies Traumatic arthritis of right ankle Trimalleolar fracture Type 2 diabetes mellitus Vision abnormalities Wears glasses Surgical History Surgical History History of prostate biopsy Hx of cholecystectomy Status post open reduction with internal fixation (ORIF) of fracture of ankle Family History Family History Father Diabetes mellitus Hypertension Acute myocardial infarction Cerebrovascular accident Mother Family history of malignant neoplasm Other Breast cancer Social History Social History (Reviewed 08/31/23 @ 11:07 by Madison Norris [facility]) Social History: Surrogate medical decision maker: Fani Delacruz, spouse. Code status: Full code. Smoking packs per day: 0.5 Smoking cigarettes per day: 10.0 Smoking status: Former smoker Alcohol intake: never Alcohol use details: FEW DRINKS/YEAR Substance use: never Substance use type: does not use Do You Feel Safe in your Home?: Yes Lack of Transportation: No Lack of Food: Never True Current Housing: I Have Housing Concerned About Future Housing: No Difficulty Paying Gas/Electric Bills: No Difficulty Paying for Meds: No Currently Unemployed: No Education: Trade/Vocational Certificate Difficulty w/ Childcare or Family Care: No Living arrangements: with family Occupation/Education: retired Spiritual care concerns: No Exam Narrative: EXAMINATION OF ORGAN SYSTEMS/BODY AREAS: Constitutional: Vital signs per nursing GENERAL:[No acute distress, non-toxic appearing.] HEAD: Normal with no signs of head trauma. EYES: EOMI, conjunctiva normal ENT: Hearing grossly intact LUNGS: Nonlabored breathing. HEART: [Regular rate and rhythm] ABD: [Soft], [nontender to palpation] EXT: Normal range of motion SKIN: [No rashes or lesions.] NEURO: [Alert and oriented x 3. No gross focal sensory or strength deficits.] PSYCH: Slightly anxious affect Course Vital Signs Vital signs: Vital Signs Temperature 97.9 F 08/31/23 16:00 Pulse Rate 73 08/31/23 16:00 Respiratory Rate 16 0
[2023-08-31 17:01] VITALS: BP 143/66; PULSE 69; RESP 20; O2SAT 98
[2023-08-31 17:07] LABS: Basophils Percent Auto 0.5 % (0.2-1.2); Eosinophils Absolute Auto 0.1 K/mm3 (0-0.3); Eosinophils Percent Auto 1.2 % (0-4.4); Hematocrit 37.3 % (42.0-52.0); Hemoglobin 12.2 g/dL (14.0-18.0); Immature Granulocyte Absolute 0.02 K/mm3 (0.00-0.031); Immature Granulocyte Percent A 0.3 % (0-0.5); Lymphocytes Absolute Auto 0.76 K/mm3 (0.9-3.2); Lymphocytes Percent Auto 10.2 % (18.3-44.2); Mean Corpuscular HGB Conc 32.7 g/dl (32-36); Mean Corpuscular Hemoglobin 28.9 pg (26-34); Mean Corpuscular Volume 88.4 fl (80-100); Mean Platelet Volume 9.4 fl (7.4-10.4); Monocytes Absolute Auto 0.5 K/mm3 (0.1-0.6); Neutrophils Absolute Auto 6.1 K/mm3 (1.3-6.7); Neutrophils Percent Auto 81.8 % (45.5-73.1); Platelet Count Result 237 k/mm3 (150-375); Red Blood Count 4.22 M/mm3 (4.6-6.20); Red Cell Distribution Width 12.8 % (11.5-14.5); White Blood Count 7.5 K/mm3 (4.5-10.0)
[2023-08-31 17:14] LABS: Anion Gap 6 mmol/L (8-16); Blood Urea Nitrogen 11 mg/dL (9-20); Calcium 8.5 mg/dL (8.4-10.2); Carbon Dioxide 27 mmol/L (22-30); Chloride 100 mmol/L (98-107); Estimated CRCL calculation 67 ml/min; Estimated Glomerular Filt Rate > 60; Glucose 130 mg/dL (65-110); Potassium 4.1 mmol/L (3.4-5.0); Sodium 133 mmol/L (137-145)
[2023-08-31 17:53] LABS: Amphetamine Screen Urine Negative (Negative); Barbiturate Screen Urine Negative (Negative); Benzodiazepines Screen Urine Negative (Negative); Cannabinoid Screen Urine Negative (Negative); Cocaine Screen Urine Negative (Negative); Methadone Screen Urine Negative (Negative); Opiate Screen Urine Negative (Negative); Phencyclidine Screen Urine Negative (Negative)
[2023-08-31 18:05] VITALS: BP 150/76; PULSE 79; RESP 16; O2SAT 98
== END 2023-08-31 18:05 | disposition home or self-care (01) ==
PROVIDERS: Emergency Provider Emergency Medicine; PCP Family Medicine
DX: F43.0 Acute stress reaction (principal); M19.90 Unspecified osteoarthritis, unspecified site; I10 Essential (primary) hypertension; E78.5 Hyperlipidemia, unspecified; E11.9 Type 2 diabetes mellitus without complications
CPT/HCPCS: 36415; 80048; 80307; 85025; 99283

== ENCOUNTER 2023-09-03 19:16 | Emergency (ER) | payer MEDICARE, SELFPAY ==
[2023-09-03 19:25] VITALS: BP 184/69; PULSE 92; RESP 16; TEMP 36.4; O2SAT 100
[2023-09-03 19:45] VITALS: PULSE 78; RESP 16; O2SAT 99
[2023-09-03 20:10] LABS: Appearance Urine Clear (Clear); Bacteria Urine 2+ /hpf; Bilirubin Urine Negative (Negative); Blood Urine 2+ (Negative); Color Urine Yellow (Yellow); Glucose Urine UA Negative (Negative); Ketones Urine Negative (Negative); Leukocyte Esterase Ur 2+ LEU/UL (Negative); Nitrate Urine Positive (Negative); Non Pathogenic Casts 0-2; Protein Urine Negative (Negative); RBC Urine 21-50 /hpf (0-2); Specific Grav Ur 1.008 (1.001-1.035); Squamous Epithelial Cell Urine None Seen /hpf (Few); Urobilinogen Urine 0.2 mg/dL (<2.0); WBC Urine 51-100 /hpf (0-3); pH Urine 7.5 (5.0-9.0)
[2023-09-03 20:12] LABS: Add Urine Microscopic? YES
[2023-09-03 20:19] LABS: Basophils Percent Auto 0.5 % (0.2-1.2); Eosinophils Absolute Auto 0.1 K/mm3 (0-0.3); Eosinophils Percent Auto 0.8 % (0-4.4); Hematocrit 35.5 % (42.0-52.0); Immature Granulocyte Absolute 0.02 K/mm3 (0.00-0.031); Immature Granulocyte Percent A 0.3 % (0-0.5); Lymphocytes Absolute Auto 1.12 K/mm3 (0.9-3.2); Lymphocytes Percent Auto 14.8 % (18.3-44.2); Mean Corpuscular HGB Conc 33.8 g/dl (32-36); Mean Corpuscular Hemoglobin 29.3 pg (26-34); Mean Corpuscular Volume 86.8 fl (80-100); Mean Platelet Volume 9.3 fl (7.4-10.4); Monocytes Absolute Auto 0.5 K/mm3 (0.1-0.6); Monocytes Percent Auto 6.1 % (2.6-8.5); Neutrophils Absolute Auto 5.9 K/mm3 (1.3-6.7); Neutrophils Percent Auto 77.5 % (45.5-73.1); Platelet Count Result 255 k/mm3 (150-375); Red Blood Count 4.09 M/mm3 (4.6-6.20); Red Cell Distribution Width 12.7 % (11.5-14.5); White Blood Count 7.6 K/mm3 (4.5-10.0)
[2023-09-03] MEDS: SODIUM CHLORIDE 0.9% IV 1,000 ML 999 ML IV CONT (20:26)
[2023-09-03 20:34] LABS: Anion Gap 5 mmol/L (8-16); Blood Urea Nitrogen 10 mg/dL (9-20); Carbon Dioxide 26 mmol/L (22-30); Chloride 101 mmol/L (98-107); Estimated Glomerular Filt Rate > 60; Glucose 123 mg/dL (65-110); Potassium 3.7 mmol/L (3.4-5.0); Sodium 132 mmol/L (137-145)
--- NOTE | 2023-09-03 21:09 | ED.MALEGU ---
HPI - Male Genitourinary General Chief complaint: Urogenital-Male Stated complaint: URINARY BLOCKAGE Time Seen by Provider: 09/03/23 19:47 Source: patient Mode of arrival: ambulatory Limitations: no limitations History of Present Illness HPI Narrative: Patient is an 83-year-old male who presents the ED with report of catheter malfunction. Patient reports having a catheter for the last 1.5 years. Has history of BPH. Sees Dr. Siegel. States his catheter stopped draining earlier today. He began having discomfort throughout his lower abdomen. He then prompted here. States he has had similar issues in the past. Denies hematuria, nausea, vomiting, fevers, back or flank pain. Related Data Home Medications Medication Instructions Recorded Confirmed cetirizine 10 mg tablet (Zyrtec) 10 mg PO DAILY 07/04/19 08/31/23 multivitamin (Multiple Vitamins 1 tablet PO DAILY 02/29/20 08/31/23 tablet) finasteride 5 mg tablet 5 mg PO DAILY 02/26/22 08/31/23 mecobalamin (vitamin B12) 1,000 1,000 mcg PO DAILY 05/18/22 08/31/23 mcg chewable tablet ascorbate calcium (vitamin C) 500 500 mg PO DAILY 04/15/23 08/31/23 mg tablet Allergies Allergy/AdvReac Type Severity Reaction Status Date / Time neomycin Allergy Mild Rash Verified 08/31/23 11:06 Sulfa (Sulfonamide AdvReac Intermediate Nausea Verified 08/31/23 11:06 Antibiotics) Review of Systems Review of Systems: CONSTITUTIONAL: Denies fever, chills, or sweats. GASTROINTESTINAL: See HPI. GENITOURINARY: See HPI. MUSCULOSKELETAL: Denies back pain, flank pain. All systems reviewed & are unremarkable except as noted in HPI and below COUNT INCLUDES THE [facility] Past Medical History Medical History Arterial vascular disease Arthritis Benign prostatic hyperplasia Chronic anemia Essential (primary) hypertension Fracture of ankle with nonunion Mixed hyperlipidemia Peripheral autonomic neuropathy due to diabetes mellitus Seasonal allergies Traumatic arthritis of right ankle Trimalleolar fracture Type 2 diabetes mellitus Vision abnormalities Wears glasses Surgical History Surgical History History of prostate biopsy Hx of cholecystectomy Status post open reduction with internal fixation (ORIF) of fracture of ankle Family History Family History Father Diabetes mellitus Hypertension Acute myocardial infarction Cerebrovascular accident Mother Family history of malignant neoplasm Other Breast cancer Social History Social History Social History: Surrogate medical decision maker: Fani Delacruz, spouse. Code status: Full code. Smoking packs per day: 0.5 Smoking cigarettes per day: 10.0 Smoking status: Former smoker Alcohol intake: never Alcohol use details: FEW DRINKS/YEAR Substance use: never Substance use type: does not use Do You Feel Safe in your Home?: Yes Lack of Transportation: No Lack of Food: Never True Current Housing: I Have Housing Concerned About Future Housing: No Difficulty Paying Gas/Electric Bills: No Difficulty Paying for Meds: No Currently Unemployed: No Education: Trade/Vocational Certificate Difficulty w/ Childcare or Family Care: No Living arrangements: with family Occupation/Education: retired Spiritual care concerns: No Exam Narrative: GENERAL: Elderly, non-toxic, in no acute distress. HEAD: Normocephalic, atraumatic. RESPIRATORY: Airway patent, respirations nonlabored. Clear to auscultation bilaterally, no rales, rhonchi, wheezing. CARDIOVASCULAR: Regular rate and rhythm ABDOMINAL: Soft, no significant tenderness throughout lower abdomen, nondistended. Normoactive BS. No CVA tenderness to percussion. MUSCULOSKELETAL: Moves all extremities. No gross deformities. SKI
[2023-09-03 21:21] VITALS: BP 143/72; PULSE 74; RESP 16; O2SAT 100
== END 2023-09-03 22:05 | disposition home or self-care (01) ==
PROVIDERS: Emergency Provider Physician Assistant; PCP Family Medicine
DX: T83.098A Other mechanical complication of other urinary catheter, initial encounter (principal); N30.01 Acute cystitis with hematuria; E11.42 Type 2 diabetes mellitus with diabetic polyneuropathy; E78.2 Mixed hyperlipidemia; I10 Essential (primary) hypertension; N40.0 Benign prostatic hyperplasia without lower urinary tract symptoms; D64.9 Anemia, unspecified; M19.90 Unspecified osteoarthritis, unspecified site; Z87.891 Personal history of nicotine dependence; Z90.49 Acquired absence of other specified parts of digestive tract; Z79.82 Long term (current) use of aspirin; Z79.84 Long term (current) use of oral hypoglycemic drugs; Y84.6 Urinary catheterization as the cause of abnormal reaction of the patient, or of later complication, without mention of misadventure at the time of the procedure
CPT/HCPCS: 36415; 51702; 80048; 85025; 87077; 87086; 87088; 87186; 99284; J0696; J7030

== ENCOUNTER 2023-09-07 18:47 | Emergency (ER) | payer MEDICARE, SELFPAY ==
[2023-09-07 18:51] VITALS: BP 203/79; PULSE 88; RESP 24; TEMP 36.8; O2SAT 98
--- NOTE | 2023-09-07 19:05 | ED.GENADULT ---
HPI - General Adult General Chief complaint: Urogenital-Male Stated complaint: stopped up catheter Time Seen by Provider: 09/07/23 18:55 History of Present Illness HPI narrative: This an 83-year-old male with chronic indwelling Ahumada presenting for for a clogged catheter. Draining about 2 hours ago. Now he has abdominal pressure. Related Data Home Medications Medication Instructions Recorded Confirmed cetirizine 10 mg tablet (Zyrtec) 10 mg PO DAILY 07/04/19 08/31/23 multivitamin (Multiple Vitamins 1 tablet PO DAILY 02/29/20 08/31/23 tablet) finasteride 5 mg tablet 5 mg PO DAILY 02/26/22 08/31/23 mecobalamin (vitamin B12) 1,000 1,000 mcg PO DAILY 05/18/22 08/31/23 mcg chewable tablet ascorbate calcium (vitamin C) 500 500 mg PO DAILY 04/15/23 08/31/23 mg tablet Allergies Allergy/AdvReac Type Severity Reaction Status Date / Time neomycin Allergy Mild Rash Verified 08/31/23 11:06 Sulfa (Sulfonamide AdvReac Intermediate Nausea Verified 08/31/23 11:06 Antibiotics) [facility] Past Medical History Medical History Arterial vascular disease Arthritis Benign prostatic hyperplasia Chronic anemia Essential (primary) hypertension Fracture of ankle with nonunion Mixed hyperlipidemia Peripheral autonomic neuropathy due to diabetes mellitus Seasonal allergies Traumatic arthritis of right ankle Trimalleolar fracture Type 2 diabetes mellitus Vision abnormalities Wears glasses Surgical History Surgical History History of prostate biopsy Hx of cholecystectomy Status post open reduction with internal fixation (ORIF) of fracture of ankle Family History Family History Father Diabetes mellitus Hypertension Acute myocardial infarction Cerebrovascular accident Mother Family history of malignant neoplasm Other Breast cancer Social History Social History Social History: Surrogate medical decision maker: Fani Delacruz, spouse. Code status: Full code. Smoking packs per day: 0.5 Smoking cigarettes per day: 10.0 Smoking status: Former smoker Alcohol intake: never Alcohol use details: FEW DRINKS/YEAR Substance use: never Substance use type: does not use Do You Feel Safe in your Home?: Yes Lack of Transportation: No Lack of Food: Never True Current Housing: I Have Housing Concerned About Future Housing: No Difficulty Paying Gas/Electric Bills: No Difficulty Paying for Meds: No Currently Unemployed: No Education: Trade/Vocational Certificate Difficulty w/ Childcare or Family Care: No Living arrangements: with family Occupation/Education: retired Spiritual care concerns: No Exam Narrative: APPEARANCE: No apparent distress. Head: atraumatic. EYES: EOMI, NOSE: Atraumatic NECK: Trachea midline RESPIRATORY: No increased rate of breathing CARDIOVASCULAR: RRR, ABDOMINAL: Suprapubic fullness and tenderness MUSCULOSKELETAl: No obvious deformities NEURO: Alert. Moving 4/4 extremities SKIN:: Warm, dry. Normal color PSYCHIATRIC: Normal affect Course Vital Signs Vital signs: Vital Signs Temperature 98.2 F 09/07/23 18:51 Pulse Rate 88 09/07/23 18:51 Respiratory Rate 24 H 09/07/23 18:51 Blood Pressure 203/79 H 09/07/23 18:51 Pulse Oximetry 98 09/07/23 18:51 Oxygen Delivery Room Air 09/07/23 18:51 Temperature 98.2 F 09/07/23 18:51 Pulse Rate 78 09/07/23 19:14 Respiratory Rate 19 09/07/23 19:14 Blood Pressure 165/80 H 09/07/23 19:14 Pulse Oximetry 100 09/07/23 19:14 Oxygen Delivery Room Air 09/07/23 18:51 Medical Decision Making [facility] Narrative Medical decision making narrative: -Course: 83-year-old clogged catheter. Catheter was replaced. Urine was clear. Urine s
[2023-09-07 19:14] VITALS: BP 165/80; PULSE 78; RESP 19; O2SAT 100
--- NOTE | 2023-09-07 19:23 | PC.NURSE ---
care and report given to GIACOMO Valdez. all questions answered.
[2023-09-07 19:56] VITALS: BP 134/78; PULSE 74; RESP 15; O2SAT 99
[2023-09-07 19:57] LABS: Appearance Urine Clear (Clear); Bilirubin Urine Negative (Negative); Blood Urine Negative (Negative); Color Urine Yellow (Yellow); Glucose Urine UA Negative (Negative); Ketones Urine Negative (Negative); Leukocyte Esterase Ur Negative LEU/UL (Negative); Nitrate Urine Negative (Negative); Protein Urine Negative (Negative); Specific Grav Ur 1.008 (1.001-1.035); Urobilinogen Urine 0.2 mg/dL (<2.0)
[2023-09-07 20:00] LABS: Add Urine Microscopic? NO
--- NOTE | 2023-09-21 15:09 | PC.NURSE ---
LATE ENTRY This note is being entered to document information to the patient's record. The following information was omitted on [09/07/23], by [Ken Ponce MD]. VORB for insertion of indwelling urinary catheter for retention.
== END 2023-09-07 19:57 | disposition home or self-care (01) ==
LOC: ANHED 19:41
PROVIDERS: Emergency Provider Emergency Medicine; PCP Family Medicine
DX: T83.098A Other mechanical complication of other urinary catheter, initial encounter (principal); R33.8 Other retention of urine
CPT/HCPCS: 51702; 99283

== ENCOUNTER 2023-09-09 08:55 | Outpatient (CLI) | payer MEDICARE, SELFPAY ==
[2023-09-09 09:20] LABS: Basophils Percent Auto 0.7 % (0.2-1.2); Eosinophils Absolute Auto 0.1 K/mm3 (0-0.3); Eosinophils Percent Auto 1.8 % (0-4.4); Hemoglobin 12.9 g/dL (14.0-18.0); Immature Granulocyte Absolute 0.02 K/mm3 (0.00-0.031); Immature Granulocyte Percent A 0.3 % (0-0.5); Lymphocytes Absolute Auto 0.99 K/mm3 (0.9-3.2); Lymphocytes Percent Auto 16.6 % (18.3-44.2); Mean Corpuscular HGB Conc 33.1 g/dl (32-36); Mean Corpuscular Hemoglobin 29.2 pg (26-34); Mean Corpuscular Volume 88.2 fl (80-100); Mean Platelet Volume 9.2 fl (7.4-10.4); Monocytes Absolute Auto 0.4 K/mm3 (0.1-0.6); Monocytes Percent Auto 6.9 % (2.6-8.5); Neutrophils Absolute Auto 4.4 K/mm3 (1.3-6.7); Neutrophils Percent Auto 73.7 % (45.5-73.1); Platelet Count Result 271 k/mm3 (150-375); Red Blood Count 4.42 M/mm3 (4.6-6.20); Red Cell Distribution Width 12.6 % (11.5-14.5)
[2023-09-09 10:47] LABS: Iron 127 ug/dL (49-181)
[2023-09-09 10:57] LABS: Percent Iron Saturation 49 % (20-50)
[2023-09-09 11:48] LABS: Alanine Aminotransferase 20 U/L (6-50); Albumin Level 4.4 g/dL (3.5-5.1); Alkaline Phosphatase 106 U/L (38-126); Anion Gap 2 mmol/L (8-16); Aspartate Amino Transferase 28 U/L (17-59); Bilirubin,Total 0.6 mg/dL (0.2-1.3); Blood Urea Nitrogen 12 mg/dL (9-20); Calcium 9.2 mg/dL (8.4-10.2); Carbon Dioxide 30 mmol/L (22-30); Chloride 99 mmol/L (98-107); Estimated Glomerular Filt Rate > 60; Glucose 125 mg/dL (65-110); Potassium 4.5 mmol/L (3.4-5.0); Sodium 131 mmol/L (137-145)
[2023-09-09 13:07] LABS: Folic Acid > 20.0 ng/mL (2.76->20)
[2023-09-09 17:25] LABS: Hemoglobin A1C 7.1 % (<5.7)
== END 2023-09-09 08:56 | disposition home or self-care (01) ==
LOC: ANHLAB 08:58
PROVIDERS: PCP Family Medicine; Visit Provider Internal Medicine Hematology & Oncology
DX: D64.9 Anemia, unspecified (principal); E11.9 Type 2 diabetes mellitus without complications
CPT/HCPCS: 36415; 80053; 82607; 82728; 82746; 83036; 83540; 83550; 85025

== ENCOUNTER 2023-09-14 15:11 | Emergency (ER) | payer MEDICARE, SELFPAY ==
[2023-09-14 15:19] VITALS: BP 132/69; PULSE 68; RESP 16; TEMP 36.2; O2SAT 100
--- NOTE | 2023-09-14 15:27 | ED.SKABFB ---
HPI - Skin/Abscess/Foreign Bdy General Chief complaint: Skin/Abscess/Foreign Body Stated complaint: RASH Time Seen by Provider: 09/14/23 15:28 Source: patient Mode of arrival: ambulatory Limitations: no limitations History of Present Illness HPI narrative: Patient is an 83-year-old male who presents with itching rash to right elbow crease. Patient states he had blood drawn 3 days ago in the used adhesive tape. Patient reports similar symptoms happened last time he had blood drawn and adhesive tape was used. Patient tries alcohol and [id number] itch cream with no relief. Denies any redness for drainage from site. Related Data Home Medications Medication Instructions Recorded Confirmed cetirizine 10 mg tablet (Zyrtec) 10 mg PO DAILY 07/04/19 08/31/23 multivitamin (Multiple Vitamins 1 tablet PO DAILY 02/29/20 08/31/23 tablet) finasteride 5 mg tablet 5 mg PO DAILY 02/26/22 08/31/23 mecobalamin (vitamin B12) 1,000 1,000 mcg PO DAILY 05/18/22 08/31/23 mcg chewable tablet ascorbate calcium (vitamin C) 500 500 mg PO DAILY 04/15/23 08/31/23 mg tablet Allergies Allergy/AdvReac Type Severity Reaction Status Date / Time adhesive tape Allergy Mild Rash Verified 09/14/23 15:40 neomycin Allergy Mild Rash Verified 08/31/23 11:06 Sulfa (Sulfonamide AdvReac Intermediate Nausea Verified 08/31/23 11:06 Antibiotics) Review of Systems Review of Systems: All systems reviewed & are unremarkable except as noted in HPI and below Constitutional: Constitutional: Denies body ache(s), Denies chills, Denies fatigue, Denies fever(s), Denies headache(s), Denies malaise and Denies weakness Eyes: Eyes: Denies blurry vision, Denies irritation and Denies loss of vision ENT: Denies otalgia, Denies headache(s), Denies nasal discharge, Denies sinus pain and Denies sore throat Cardiovascular: Cardiovascular: Denies chest pain, Denies irregular heart rhythm and Denies dyspnea Respiratory: Respiratory: Denies dyspnea Gastrointestinal: Gastrointestinal: Denies abdominal pain, Denies melena, Denies hematochezia, Denies diarrhea, Denies nausea and Denies vomiting Musculoskeletal: Musculoskeletal: Denies back pain, Denies myalgias and Denies arthralgias Integumentary/Breasts: Skin/Breast: Reports pruritus and Reports rash Neurologic: Denies headache(s), Denies loss of vision and Denies weakness Psychiatric: Psychiatric: Reports no additional psychiatric complaints Endocrine: Endocrine: Denies fatigue [facility] Past Medical History Medical History Arterial vascular disease Arthritis Benign prostatic hyperplasia Chronic anemia Essential (primary) hypertension Fracture of ankle with nonunion Mixed hyperlipidemia Peripheral autonomic neuropathy due to diabetes mellitus Seasonal allergies Traumatic arthritis of right ankle Trimalleolar fracture Type 2 diabetes mellitus Vision abnormalities Wears glasses Surgical History Surgical History History of prostate biopsy Hx of cholecystectomy Status post open reduction with internal fixation (ORIF) of fracture of ankle Family History Family History Father Diabetes mellitus Hypertension Acute myocardial infarction Cerebrovascular accident Mother Family history of malignant neoplasm Other Breast cancer Social History Social History Social History: Surrogate medical decision maker: Fani Delacruz, spouse. Code status: Full code. Smoking packs per day: 0.5 Smoking cigarettes per day: 10.0 Smoking status: Former smoker Alcohol intake: never Alcohol use details: FEW DRINKS/YEAR Substance use: never Substance use type: does not use Do You Feel Safe in your Home?: Yes Lack of Transportation: No Lack of Food: Never True Current Housing
== END 2023-09-14 15:46 | disposition home or self-care (01) ==
PROVIDERS: Emergency Provider Nurse Practitioner Family; PCP Family Medicine
DX: L23.1 Allergic contact dermatitis due to adhesives (principal); Z87.891 Personal history of nicotine dependence; N40.0 Benign prostatic hyperplasia without lower urinary tract symptoms; I10 Essential (primary) hypertension; E78.2 Mixed hyperlipidemia; E11.43 Type 2 diabetes mellitus with diabetic autonomic (poly)neuropathy; I77.9 Disorder of arteries and arterioles, unspecified
CPT/HCPCS: 99213; G0463

== ENCOUNTER 2023-09-18 21:56 | Emergency (ER) | payer MEDICARE, SELFPAY ==
[2023-09-18 22:30] VITALS: BP 161/79; PULSE 77; RESP 16; TEMP 36.3; O2SAT 96
--- NOTE | 2023-09-19 00:17 | ED.GENADULT ---
HPI - General Adult General Chief complaint: Urogenital-Male Stated complaint: urinary retention Time Seen by Provider: 09/18/23 23:09 History of Present Illness HPI narrative: This is an 83-year-old male history of urinary retention and multiple clogged catheters presenting for clogged catheter. Patient states that his catheter stops draining around 730 last night. By 930 he was developing lower abdominal pressure and came to the ER for evaluation. Patient has been seen numerous times in our ER for this and typically gets his catheter changed. Patient is post get a procedure performed on his prostate to relieve his urinary retention on October 03. Patient denies any other complaints. Related Data Home Medications Medication Instructions Recorded Confirmed cetirizine 10 mg tablet (Zyrtec) 10 mg PO DAILY 07/04/19 08/31/23 multivitamin (Multiple Vitamins 1 tablet PO DAILY 02/29/20 08/31/23 tablet) finasteride 5 mg tablet 5 mg PO DAILY 02/26/22 08/31/23 mecobalamin (vitamin B12) 1,000 1,000 mcg PO DAILY 05/18/22 08/31/23 mcg chewable tablet ascorbate calcium (vitamin C) 500 500 mg PO DAILY 04/15/23 08/31/23 mg tablet Allergies Allergy/AdvReac Type Severity Reaction Status Date / Time adhesive tape Allergy Mild Rash Verified 09/18/23 22:32 neomycin Allergy Mild Rash Verified 09/18/23 22:32 Sulfa (Sulfonamide AdvReac Intermediate Nausea Verified 09/18/23 22:32 Antibiotics) PMFSH Past Medical History Medical History Arterial vascular disease Arthritis Benign prostatic hyperplasia Chronic anemia Essential (primary) hypertension Fracture of ankle with nonunion Mixed hyperlipidemia Peripheral autonomic neuropathy due to diabetes mellitus Seasonal allergies Traumatic arthritis of right ankle Trimalleolar fracture Type 2 diabetes mellitus Vision abnormalities Wears glasses Surgical History Surgical History History of prostate biopsy Hx of cholecystectomy Status post open reduction with internal fixation (ORIF) of fracture of ankle Family History Family History Father Diabetes mellitus Hypertension Acute myocardial infarction Cerebrovascular accident Mother Family history of malignant neoplasm Other Breast cancer Social History Social History Social History: Surrogate medical decision maker: Fani Delacruz, spouse. Code status: Full code. Smoking packs per day: 0.5 Smoking cigarettes per day: 10.0 Smoking status: Former smoker Alcohol intake: never Alcohol use details: FEW DRINKS/YEAR Substance use: never Substance use type: does not use Do You Feel Safe in your Home?: Yes Lack of Transportation: No Lack of Food: Never True Current Housing: I Have Housing Concerned About Future Housing: No Difficulty Paying Gas/Electric Bills: No Difficulty Paying for Meds: No Currently Unemployed: No Education: Trade/Vocational Certificate Difficulty w/ Childcare or Family Care: No Living arrangements: with family Occupation/Education: retired Spiritual care concerns: No Exam Narrative: APPEARANCE: No apparent distress. Head: atraumatic. EYES: EOMI, NOSE: Atraumatic NECK: Trachea midline RESPIRATORY: No increased rate of breathing CARDIOVASCULAR: RRR, ABDOMINAL: Non-distended, soft nontender no CVA tenderness MUSCULOSKELETAl: No obvious deformities NEURO: Alert. Moving 4/4 extremities SKIN:: Warm, dry. Normal color PSYCHIATRIC: Normal affect Course Vital Signs Vital signs: Vital Signs Temperature 97.3 F L 09/18/23 22:30 Pulse Rate 77 09/18/23 22:30 Respiratory Rate 16 09/18/23 22:30 Blood Pressure 161/79 H 09/18/23 22:30 Pulse Oximetry 96 09/18/23 22:30 Oxygen Delivery Room Air 09/18/23 22:30 [place]
[2023-09-19 00:32] VITALS: BP 147/68; PULSE 74; RESP 17; O2SAT 97
[2023-09-19 00:48] LABS: Appearance Urine Clear (Clear); Bacteria Urine None Seen /hpf; Bilirubin Urine Negative (Negative); Blood Urine Negative (Negative); Color Urine Yellow (Yellow); Glucose Urine UA Negative (Negative); Ketones Urine Negative (Negative); Leukocyte Esterase Ur 2+ LEU/UL (Negative); Nitrate Urine Negative (Negative); Non Pathogenic Casts 0-2; Protein Urine Negative (Negative); RBC Urine 0-2 /hpf (0-2); Specific Grav Ur 1.016 (1.001-1.035); Squamous Epithelial Cell Urine None Seen /hpf (Few); Urobilinogen Urine 0.2 mg/dL (<2.0); WBC Urine 21-50 /hpf (0-3)
[2023-09-19 01:03] LABS: Add Urine Microscopic? YES
== END 2023-09-19 00:33 | disposition home or self-care (01) ==
PROVIDERS: Emergency Provider Emergency Medicine; PCP Family Medicine
DX: R33.9 Retention of urine, unspecified (principal); R10.30 Lower abdominal pain, unspecified; Z46.6 Encounter for fitting and adjustment of urinary device; M19.90 Unspecified osteoarthritis, unspecified site; N40.0 Benign prostatic hyperplasia without lower urinary tract symptoms; I10 Essential (primary) hypertension; E78.5 Hyperlipidemia, unspecified; E11.9 Type 2 diabetes mellitus without complications
CPT/HCPCS: 51702; 81001; 87086; 99283

== ENCOUNTER 2023-10-06 17:18 | Emergency (ER) | payer MEDICARE, SELFPAY ==
[2023-10-06] VITALS (12 sets, daily range): BP systolic 117–142; BP diastolic 60–80; PULSE 65–71; RESP 12–30; TEMP 36.2; O2SAT 95–100
--- NOTE | 2023-10-06 19:17 | PC.NURSE ---
Report given to Allie GOODEN, all questions answered
[2023-10-06 20:39] LABS: Appearance Urine Clear (Clear); Bilirubin Urine Negative (Negative); Blood Urine 3+ (Negative); Color Urine Yellow (Yellow); Glucose Urine UA Negative (Negative); Ketones Urine Negative (Negative); Leukocyte Esterase Ur Trace LEU/UL (Negative); Nitrate Urine Negative (Negative); Protein Urine Trace mg/dL (Negative); Specific Grav Ur 1.012 (1.001-1.035)
[2023-10-06 20:40] LABS: Add Urine Microscopic? NO
--- NOTE | 2023-10-06 20:57 | ED.MALEGU ---
HPI - Male Genitourinary General Chief complaint: Urogenital-Male Stated complaint: unable to void since Tuesday Time Seen by Provider: 10/06/23 19:22 History of Present Illness HPI Narrative: Patient is an 83-year-old male who presents ER with difficulty urinating. He has not had any urine output since early this afternoon. It is only been intermittently coming out since Tuesday. Reports constipation for last week. He has been taking suppositories and stool softeners. He did take magnesium citrate this afternoon. Upon arrival to the ER he did have a bowel movement. His Ahumada was exchanged by nursing staff with greater than 500 mL of urinary output. He was having some suprapubic pain that has since resolved. Related Data Home Medications Medication Instructions Recorded Confirmed cetirizine 10 mg tablet (Zyrtec) 10 mg PO DAILY 07/04/19 08/31/23 multivitamin (Multiple Vitamins 1 tablet PO DAILY 02/29/20 08/31/23 tablet) finasteride 5 mg tablet 5 mg PO DAILY 02/26/22 08/31/23 mecobalamin (vitamin B12) 1,000 1,000 mcg PO DAILY 05/18/22 08/31/23 mcg chewable tablet ascorbate calcium (vitamin C) 500 500 mg PO DAILY 04/15/23 08/31/23 mg tablet Allergies Allergy/AdvReac Type Severity Reaction Status Date / Time adhesive tape Allergy Mild Rash Verified 10/06/23 18:51 neomycin Allergy Mild Rash Verified 10/06/23 18:51 Sulfa (Sulfonamide AdvReac Intermediate Nausea Verified 10/06/23 18:51 Antibiotics) Review of Systems Review of Systems: All systems reviewed & are unremarkable except as noted in HPI and below Constitutional: Constitutional: Reports no additional constitutional complaints Cardiovascular: Cardiovascular: Reports no additional cardiovascular complaints Respiratory: Respiratory: Reports no additional respiratory complaints Gastrointestinal: Gastrointestinal: Reports abdominal pain, Reports constipation, Denies diarrhea, Denies nausea and Denies vomiting Genitourinary: Genitourinary: Reports oliguria, Denies dysuria and Denies urinary incontinence Musculoskeletal: Musculoskeletal: Reports no additional musculoskeletal complaints [facility] Past Medical History Medical History Arterial vascular disease Arthritis Benign prostatic hyperplasia Chronic anemia Essential (primary) hypertension Fracture of ankle with nonunion Mixed hyperlipidemia Peripheral autonomic neuropathy due to diabetes mellitus Seasonal allergies Traumatic arthritis of right ankle Trimalleolar fracture Type 2 diabetes mellitus Vision abnormalities Wears glasses Surgical History Surgical History History of prostate biopsy Hx of cholecystectomy Status post open reduction with internal fixation (ORIF) of fracture of ankle Family History Family History Father Diabetes mellitus Hypertension Acute myocardial infarction Cerebrovascular accident Mother Family history of malignant neoplasm Other Breast cancer Social History Social History Social History: Surrogate medical decision maker: Fani Delacruz, spouse. Code status: Full code. Smoking packs per day: 0.5 Smoking cigarettes per day: 10.0 Smoking status: Former smoker Alcohol intake: never Alcohol use details: FEW DRINKS/YEAR Substance use: never Substance use type: does not use Do You Feel Safe in your Home?: Yes Lack of Transportation: No Lack of Food: Never True Current Housing: I Have Housing Concerned About Future Housing: No Difficulty Paying Gas/Electric Bills: No Difficulty Paying for Meds: No Currently Unemployed: No Education: Trade/Vocational Certificate Difficulty w/ Childcare or Family Care: No Living arrangements: with family Occupation/Education: retired Spiritual care concern
== END 2023-10-06 21:15 | disposition home or self-care (01) ==
PROVIDERS: Emergency Provider Emergency Medicine; PCP Family Medicine
DX: N40.1 Benign prostatic hyperplasia with lower urinary tract symptoms (principal); R33.8 Other retention of urine; K59.00 Constipation, unspecified; I10 Essential (primary) hypertension; E78.2 Mixed hyperlipidemia; E11.42 Type 2 diabetes mellitus with diabetic polyneuropathy; D64.9 Anemia, unspecified; M19.90 Unspecified osteoarthritis, unspecified site; Z87.891 Personal history of nicotine dependence; Z90.49 Acquired absence of other specified parts of digestive tract; Z79.82 Long term (current) use of aspirin; Z79.84 Long term (current) use of oral hypoglycemic drugs
CPT/HCPCS: 51702; 81003; 99283

== ENCOUNTER 2023-10-15 16:25 | Emergency (ER) | payer MEDICARE, SELFPAY ==
--- NOTE | 2023-10-15 16:38 | ED.GENADULT ---
HPI - General Adult General Chief complaint: Chest Pain Stated complaint: Chest Pain Time Seen by Provider: 10/15/23 16:38 Source: patient Mode of arrival: ambulatory Limitations: no limitations History of Present Illness HPI narrative: 83-year-old male patient presents to the [facility] with complaints of midsternal chest pain and numbness and tingling down bilateral he arms and hands. Patient states about a week ago he went into an outpatient urology in [place] to have a procedure for prostate arterial embolism and the procedure did not go well and was aborted. Patient states he does have a catheter in place but ever since the procedure he is just overall not been feeling well and today the chest pain started prior to arrival. Patient denies any history of cardiac or strokes in the past. Related Data Home Medications Medication Instructions Recorded Confirmed cetirizine 10 mg tablet (Zyrtec) 10 mg PO DAILY 07/04/19 08/31/23 multivitamin (Multiple Vitamins 1 tablet PO DAILY 02/29/20 08/31/23 tablet) finasteride 5 mg tablet 5 mg PO DAILY 02/26/22 08/31/23 mecobalamin (vitamin B12) 1,000 1,000 mcg PO DAILY 05/18/22 08/31/23 mcg chewable tablet ascorbate calcium (vitamin C) 500 500 mg PO DAILY 04/15/23 08/31/23 mg tablet Allergies Allergy/AdvReac Type Severity Reaction Status Date / Time adhesive tape Allergy Mild Rash Verified 10/15/23 16:38 neomycin Allergy Mild Rash Verified 10/15/23 16:38 Sulfa (Sulfonamide AdvReac Intermediate Nausea Verified 10/15/23 16:38 Antibiotics) Review of Systems Review of Systems: CONSTITUTIONAL: Denies fever, chills, or sweats. EYES: Denies visual changes, redness, or discharge. ENT: Denies rhinorrhea, congestion, sore throat, or otalgia. CARDIOVASCULAR: Positive midsternal chest pain, denies palpitations, or edema. RESPIRATORY: Denies cough or dyspnea. GASTROINTESTINAL: Denies abdominal pain, nausea, vomiting, or diarrhea. GENITOURINARY: Denies dysuria or hematuria. SKIN: Denies rash or itching. MUSCULOSKELETAL: Denies back pain, joint pain, or myalgia. NEUROLOGIC: Denies headache, positive numbness tingling and weakness to bilateral arms and hands. PSYCHIATRIC: Denies anxiety or depression. [facility] Past Medical History Medical History Arterial vascular disease Arthritis Benign prostatic hyperplasia Chronic anemia Essential (primary) hypertension Fracture of ankle with nonunion Mixed hyperlipidemia Peripheral autonomic neuropathy due to diabetes mellitus Seasonal allergies Traumatic arthritis of right ankle Trimalleolar fracture Type 2 diabetes mellitus Vision abnormalities Wears glasses Surgical History Surgical History History of prostate biopsy Hx of cholecystectomy Status post open reduction with internal fixation (ORIF) of fracture of ankle Family History Family History Father Diabetes mellitus Hypertension Acute myocardial infarction Cerebrovascular accident Mother Family history of malignant neoplasm Other Breast cancer Social History Social History Social History: Surrogate medical decision maker: Fani Delacruz, spouse. Code status: Full code. Smoking packs per day: 0.5 Smoking cigarettes per day: 10.0 Smoking status: Former smoker Alcohol intake: never Alcohol use details: FEW DRINKS/YEAR Substance use: never Substance use type: does not use Do You Feel Safe in your Home?: Yes Lack of Transportation: No Lack of Food: Never True Current Housing: I Have Housing Concerned About Future Housing: No Difficulty Paying Gas/Electric Bills: No Difficulty Paying for Meds: No Currently Unemployed: No Education: Trade/Vocational Certificate Difficulty w/ Childcare or Family Care: No
[2023-10-15 17:06] VITALS: BP 149/74; PULSE 84; RESP 20; TEMP 36.9; O2SAT 97
--- NOTE | 2023-10-15 17:38 | ECG_ITS ---
SEE SCANNED COPY FOR CONFIRMED REPORT MTDD
== END 2023-10-15 17:03 | disposition short-term general hospital (02) ==
PROVIDERS: Emergency Provider Nurse Practitioner Family; PCP Family Medicine
DX: R07.9 Chest pain, unspecified (principal); Z87.891 Personal history of nicotine dependence; N40.0 Benign prostatic hyperplasia without lower urinary tract symptoms; I10 Essential (primary) hypertension; E78.2 Mixed hyperlipidemia; E11.43 Type 2 diabetes mellitus with diabetic autonomic (poly)neuropathy
CPT/HCPCS: 93005; 99215; G0463

== ENCOUNTER 2023-10-15 17:21 | Inpatient (IN) | payer MEDICARE, SELFPAY ==
[2023-10-15] VITALS (10 sets, daily range): BP systolic 118–151; BP diastolic 57–77; PULSE 59–76; RESP 14–22; TEMP 36.5–36.6; O2SAT 96–100; BMI 24.7
--- NOTE | ~2023-10-15 | CT_ITS ---
EXAMINATION: CT abdomen pelvis w con DATE: 10/15/2023 18:39 INDICATION: abdominal pain TECHNIQUE: Computed tomography (CT) of the abdomen and pelvis was performed with 100 mL Omnipaque-350 intravenous contrast. Automated exposure control and iterative reconstruction technique were employe d. The dose-length product was 478.23 mGy-cm. COMPARISON: 12/28/2022, 03/14/2022; MR abdomen 02/11/2022. FINDINGS: Lower thorax: Aortic valve and coronary artery calcifications. Liver: Normal. Biliary/Gallbladder: Gallbladder is absent. No bile duct dilation. Pancreas: No mass or duct dilation. Spleen: Normal. Adrenals:No mass. Kidneys: 2 cm indeterminate density left midpole mass, stable in size than the prior studies, previou sly documented by MR to represent a proteinaceous/hemorrhagic cyst. Subcentimeter right renal hypoden sities too small to characterize. No obstructing calcification. No hydronephrosis. GI tract: No small or large bowel dilation. Normal appendix. Diverticulosis without diverticulitis. Mesentery/Peritoneum: No ascites, mass, or free air. Retroperitoneum: No mass. Atherosclerotic abdominal aortic and/or arterial calcifications. Pelvis: Indwelling urinary catheter. Marked prostatomegaly. Moderate bladder wall thickening. Soft Tissues: 11 cm fat density left lower abdominal wall mass likely lipoma. Bones: No acute osseous finding. IMPRESSION: Cystitis versus lateral thickening from chronic outlet obstruction. Moderate urinary bladder distention despite the presence of the catheter, correlate with catheter fun ction. 11 cm left lower abdominal wall lipoma, consider surgical referral for potential resection. Reviewed, dictated and finalized at location K. IMPRESSION: Cystitis versus lateral thickening from chronic outlet obstruction. Moderate urinary bladder distention despite the presence of the catheter, corre late with catheter function. 11 cm left lower abdominal wall lipoma, consider surgical referral for potentia l resection.
--- NOTE | ~2023-10-15 | XR_ITS ---
EXAMINATION: XR chest 1V portable Exam Date/Time: 10/15/2023 17:42 CDT HISTORY: cp Comparison: 07/21/2023. RESULT: Lines, tubes, and devices: None. Lungs and pleura: Clear. Chronic volume loss on the right. Bibasilar scar. Cardiomediastinal silhouette: Stable. Other: No acute osseous or upper abdominal finding. IMPRESSION: No acute cardiopulmonary process. Reviewed, dictated and finalized at location K.
--- NOTE | 2023-10-15 17:31 | ECG_ITS ---
SEE SCANNED COPY FOR CONFIRMED REPORT MTDD
[2023-10-15 17:43] LABS: Basophils Percent Auto 0.4 % (0.2-1.2); Eosinophils Percent Auto 0.4 % (0-4.4); Hematocrit 33.9 % (42.0-52.0); Hemoglobin 11.9 g/dL (14.0-18.0); Immature Granulocyte Absolute 0.03 K/mm3 (0.00-0.031); Immature Granulocyte Percent A 0.4 % (0-0.5); Lymphocytes Absolute Auto 0.73 K/mm3 (0.9-3.2); Lymphocytes Percent Auto 8.7 % (18.3-44.2); Mean Corpuscular HGB Conc 35.1 g/dl (32-36); Mean Corpuscular Hemoglobin 29.9 pg (26-34); Mean Corpuscular Volume 85.2 fl (80-100); Monocytes Absolute Auto 0.4 K/mm3 (0.1-0.6); Monocytes Percent Auto 5.1 % (2.6-8.5); Neutrophils Absolute Auto 7.1 K/mm3 (1.3-6.7); Platelet Count Result 282 k/mm3 (150-375); Red Blood Count 3.98 M/mm3 (4.6-6.20); Red Cell Distribution Width 12.6 % (11.5-14.5); White Blood Count 8.4 K/mm3 (4.5-10.0)
[2023-10-15 17:53] LABS: Alanine Aminotransferase 17 U/L (6-50); Albumin Level 4.2 g/dL (3.5-5.1); Alkaline Phosphatase 103 U/L (38-126); Anion Gap 8 mmol/L (4-12); Aspartate Amino Transferase 24 U/L (17-59); Bilirubin,Total 0.6 mg/dL (0.2-1.3); Blood Urea Nitrogen 10 mg/dL (9-20); Calcium 8.8 mg/dL (8.4-10.2); Carbon Dioxide 24 mmol/L (22-30); Chloride 92 mmol/L (98-107); Estimated CRCL calculation 76 ml/min; Estimated Glomerular Filt Rate > 60; Glucose 172 mg/dL (65-110); Lipase 88 U/L (23-300); Prothrombin Time 13.1 Seconds (11.1-14.7); Sodium 124 mmol/L (137-145)
[2023-10-15 17:54] LABS: Partial Thromboplastin Time 28.2 Seconds (22.3-36.8)
[2023-10-15 18:05] LABS: Troponin I < 0.012 ng/mL (0.000-0.034)
--- NOTE | 2023-10-15 18:08 | ED.GENADULT ---
HPI - General Adult General Chief complaint: Chest Pain Stated complaint: CP Time Seen by Provider: 10/15/23 17:55 Source: patient, family and EMS Mode of arrival: EMS History of Present Illness HPI narrative: 83 years old white male came from home by ambulance with his complaining of multiple symptoms including Abdominal pain, constipation, not feeling well, intermittent right arm numbness, poor appetite, losing weight, chest tightness, /not today. The above symptoms started 2 weeks ago after failed prostatic procedure at [facility]. patient does not know the name of the procedure and consequences of it. Currently Ahumada catheter in. History of diabetes, hypertension, hyperlipidemia, cholecystectomy, on baby aspirin once a day. Patient main complaint at this minute is feeling constipated denies any chest pain or shortness of breath or back pain or abdominal pain. Related Data Home Medications Medication Instructions Recorded Confirmed cetirizine 10 mg tablet (Zyrtec) 10 mg PO DAILY 07/04/19 08/31/23 multivitamin (Multiple Vitamins 1 tablet PO DAILY 02/29/20 08/31/23 tablet) finasteride 5 mg tablet 5 mg PO DAILY 02/26/22 08/31/23 mecobalamin (vitamin B12) 1,000 1,000 mcg PO DAILY 05/18/22 08/31/23 mcg chewable tablet ascorbate calcium (vitamin C) 500 500 mg PO DAILY 04/15/23 08/31/23 mg tablet Allergies Allergy/AdvReac Type Severity Reaction Status Date / Time adhesive tape Allergy Mild Rash Verified 10/15/23 17:30 neomycin Allergy Mild Rash Verified 10/15/23 17:30 Sulfa (Sulfonamide AdvReac Intermediate Nausea Verified 10/15/23 17:30 Antibiotics) Review of Systems Review of Systems: All systems reviewed & are unremarkable except as noted in HPI and below PMFSH Past Medical History Medical History Arterial vascular disease Arthritis Benign prostatic hyperplasia Chronic anemia Essential (primary) hypertension Fracture of ankle with nonunion Mixed hyperlipidemia Peripheral autonomic neuropathy due to diabetes mellitus Seasonal allergies Traumatic arthritis of right ankle Trimalleolar fracture Type 2 diabetes mellitus Vision abnormalities Wears glasses Surgical History Surgical History History of prostate biopsy Hx of cholecystectomy Status post open reduction with internal fixation (ORIF) of fracture of ankle Family History Family History Father Diabetes mellitus Hypertension Acute myocardial infarction Cerebrovascular accident Mother Family history of malignant neoplasm Other Breast cancer Social History Social History Social History: Surrogate medical decision maker: Fani Delacruz, spouse. Code status: Full code. Smoking packs per day: 0.5 Smoking cigarettes per day: 10.0 Smoking status: Former smoker Alcohol intake: never Alcohol use details: FEW DRINKS/YEAR Substance use: never Substance use type: does not use Do You Feel Safe in your Home?: Yes Lack of Transportation: No Lack of Food: Never True Current Housing: I Have Housing Concerned About Future Housing: No Difficulty Paying Gas/Electric Bills: No Difficulty Paying for Meds: No Currently Unemployed: No Education: Trade/Vocational Certificate Difficulty w/ Childcare or Family Care: No Living arrangements: with family Occupation/Education: retired Spiritual care concerns: No Exam Narrative: General appearance: Well-developed, well-nourished Skin: Normal color , 2+ edema lower extremity bilaterally up to the knees Head: Normocephalic, nontraumatic Eyes: Clear conjunctiva ENT: Oropharynx normal, ears normal, nose normal Neck: Supple, nontender Chest and respiratory: Airway patent, no respiratory distress, no accessory muscle use Heart: Regular rate/rhythm
[2023-10-15] MEDS: SODIUM CHLORIDE 0.9% IV 1,000 ML 999 ML IV CONT (18:39)
--- NOTE | 2023-10-15 20:18 | ECG_ITS ---
SEE SCANNED COPY FOR CONFIRMED REPORT MTDD
[2023-10-15 20:58] LABS: Troponin I < 0.012 ng/mL (0.000-0.034)
[2023-10-15 21:47] LABS: Appearance Urine Clear (Clear); Bacteria Urine 3+ /hpf; Bilirubin Urine Negative (Negative); Blood Urine 2+ (Negative); Color Urine Yellow (Yellow); Glucose Urine UA Negative (Negative); Ketones Urine Negative (Negative); Leukocyte Esterase Ur 3+ LEU/UL (Negative); Nitrate Urine Negative (Negative); Non Pathogenic Casts 0-2; Protein Urine Negative (Negative); RBC Urine 0-2 /hpf (0-2); Specific Grav Ur 1.008 (1.001-1.035); Squamous Epithelial Cell Urine None Seen /hpf (Few); Urobilinogen Urine 0.2 mg/dL (<2.0); WBC Urine >100 /hpf (0-3); pH Urine 7.5 (5.0-9.0)
[2023-10-15 21:50] LABS: Add Urine Microscopic? YES; Sodium Urine Random 48 meq/L
--- NOTE | 2023-10-15 22:15 | ADMGEN ---
This patient, Meliton Delacruz, was admitted to Medical Room 253-01. Patient/family oriented to hospital policies and general routines including ID bracelet, bed and alarms, visiting hours, pain management, procedures, bathroom and other care routines, personal items, smoking policy, room service/diet, and visiting hours. Information on how to activate the Rapid Response Team has been discussed. Patient/Family are encouraged to report perceived risks to care and to ask questions if they do not understand what they are told or what they should do.
[2023-10-16] VITALS: PULSE 61
[2023-10-16 00:05] LABS: Troponin I < 0.012 ng/mL (0.000-0.034)
[2023-10-16 00:13] LABS: Sodium 127 mmol/L (137-145)
--- NOTE | 2023-10-16 01:44 | PM.IMHP ---
H&P: HPI History of Present Illness Date/Time: 10/16/23 01:44 Chief Complaint: Constipation, pressure Narrative: 83-year-old male with a past medical history of essential hypertension, hyperlipidemia, type 2 diabetes mellitus, BPH with chronic Ahumada catheter for several years, mild memory loss, chronic anemia and chronic hyponatremia presented to the ER via ambulance from [facility] due to constipation and abdominal pressure and chest pressure. Source of information mostly comes from review of past medical records as patient is only alert oriented to person and place. The patient had a urologic procedure that the ER provider reports where the vessels to the patient's prostate were attempted to be ablated. The urologist had reported to the ER provider that the procedure was not successful. Ever since that time the patient has just generally not felt well. He reports that he has been having persistent constipation since then but will have occasional squirts of stool. The patient cannot tell me when he last had a bowel movement but ER provider reported the patient's last bowel movement had been the day prior to admission. He had evidently had several bowel movements that day. The patient not been witnessed to have any hematochezia or melena. His Ahumada catheter appeared to be functioning on arrival and was draining. However patient is still reported general sensation of abdominal distension. CT scan performed in the ER did demonstrate persistent retained urine in the bladder despite presence of Ahumada catheter in appropriate position. Urology was contacted and recommended the patient's catheter be exchanged for a larger Italian catheter. The nursing staff was able to do so. Patient's catheter is draining currently. Patient reports his abdominal discomfort has improved. The patient had reported to the EMS that he was having chest pressure. At the time my evaluation the patient states that he felt more like his abdomen was pushing up in making it uncomfortable for him to breathe. Patient had received 1 spray of nitro and a full-dose aspirin by EMS. EMS reported the patient did have relief in his symptoms with the nitro. Patient does not specifically recall this. He denies any shortness of breath, cough or congestion. He denies fevers or chills. Lab performed in the ER demonstrated acute on chronic hyponatremia. Patient reports he has been having general decrease in appetite. He reports that no food tastes good. He denies difficulty swallowing. He has not had any nausea or vomiting. Review of Systems Review of Systems: Review of systems was attempted but limited due to patient's chronic memory impairment. Pertinent positives and negatives listed under HPI. [facility] Past Medical History Medical History (Updated 10/16/23 @ 08:28 by Sharon Yoder DO) Arterial vascular disease Arthritis Benign prostatic hyperplasia Chronic anemia Chronic indwelling Ahumada catheter Diastolic dysfunction Echocardiogram July 2023: EF 55-60% grade 1 diastolic dysfunction, mild concentric left ventricular wall thickness, normal valves Essential (primary) hypertension Fracture of ankle with nonunion Mixed hyperlipidemia Peripheral autonomic neuropathy due to diabetes mellitus Seasonal allergies Traumatic arthritis of right ankle Trimalleolar fracture Type 2 diabetes mellitus Vision abnormalities Wears glasses Surgical History Surgical History History of prostate biopsy Hx of cholecystectomy Status post open reduction with internal fixation (ORIF) of fracture of ankle Family History Family History Father Diabetes mellitus Acute myocardial infarction Hypertension Cerebrovascular accident Mother Family history of malignant neoplasm Social History Social History Social Hi
[2023-10-16 04:00] VITALS: PULSE 65
[2023-10-16 06:00] VITALS: BP 142/71; PULSE 79; RESP 18; TEMP 36.7; O2SAT 99
[2023-10-16 06:03] LABS: Anion Gap 5 mmol/L (4-12); Blood Urea Nitrogen 8 mg/dL (9-20); Calcium 8.5 mg/dL (8.4-10.2); Carbon Dioxide 26 mmol/L (22-30); Chloride 98 mmol/L (98-107); Estimated CRCL calculation 76 ml/min; Estimated Glomerular Filt Rate > 60; Glucose 121 mg/dL (65-110); Potassium 3.9 mmol/L (3.4-5.0); Sodium 129 mmol/L (137-145)
[2023-10-16 08:23] LABS: Glucose Point of Care 125 mg/dl (65-105)
[2023-10-16 09:44] VITALS: BP 136/65
[2023-10-16] MEDS: LORATADINE 10 MG TABLET PO (09:45)
[2023-10-16] MEDS: PANTOPRAZOLE 40 MG TABLET PO (09:45)
[2023-10-16] MEDS: ASPIRIN 81 MG ENTERIC TABLET PO ×2 (09:45→16:45)
[2023-10-16] MEDS: amLODIPine BESYLATE 5 MG TABLET 10 MG BY MOUTH (09:45)
[2023-10-16] MEDS: FINASTERIDE 5 MG TABLET PO (09:46)
[2023-10-16] MEDS: FLUTICASONE PROPIONATE 0.05% NA SPR 16 GM BTL (*BKC) 1 SPRAY NASAL (09:46)
[2023-10-16] MEDS: MULTIVITAMINS THERAPEUTIC TAB (*BKC) 1 TABLET PO (09:46)
[2023-10-16] MEDS: lisinopriL 20 MG TABLET PO (09:46)
[2023-10-16 09:52] LABS: Basophils Percent Auto 0.2 % (0.2-1.2); Eosinophils Percent Auto 0.4 % (0-4.4); Hematocrit 36.3 % (42.0-52.0); Hemoglobin 12.4 g/dL (14.0-18.0); Immature Granulocyte Absolute 0.02 K/mm3 (0.00-0.031); Immature Granulocyte Percent A 0.2 % (0-0.5); Lymphocytes Absolute Auto 0.62 K/mm3 (0.9-3.2); Lymphocytes Percent Auto 7.7 % (18.3-44.2); Mean Corpuscular HGB Conc 34.2 g/dl (32-36); Mean Corpuscular Hemoglobin 29.5 pg (26-34); Mean Corpuscular Volume 86.4 fl (80-100); Mean Platelet Volume 9.5 fl (7.4-10.4); Monocytes Absolute Auto 0.5 K/mm3 (0.1-0.6); Monocytes Percent Auto 6.2 % (2.6-8.5); Neutrophils Absolute Auto 6.9 K/mm3 (1.3-6.7); Neutrophils Percent Auto 85.3 % (45.5-73.1); Platelet Count Result 317 k/mm3 (150-375); Red Cell Distribution Width 12.9 % (11.5-14.5); White Blood Count 8.1 K/mm3 (4.5-10.0)
[2023-10-16 09:57] LABS: Anion Gap 7 mmol/L (4-12); Blood Urea Nitrogen 8 mg/dL (9-20); Calcium 8.9 mg/dL (8.4-10.2); Carbon Dioxide 26 mmol/L (22-30); Chloride 98 mmol/L (98-107); Estimated CRCL calculation 76 ml/min; Estimated Glomerular Filt Rate > 60; Glucose 177 mg/dL (65-110); Sodium 131 mmol/L (137-145)
--- NOTE | 2023-10-16 10:58 | WPDURCON ---
Assessment and Plan Assessment and plan (1) Urinary retention with incomplete bladder emptying: Code(s): R33.9 - Retention of urine, unspecified Status: Acute Assessment and Plan: secondary to recent PAE for large prostate Cont with mariee (2) Chronic indwelling Mariee catheter: Code(s): Z97.8 - Presence of other specified devices Status: Inactive (3) BPH (benign prostatic hyperplasia): Qualifiers: Lower urinary tract symptom detail: urinary retention Code(s): N40.0 - Benign prostatic hyperplasia without lower urinary tract symptoms Status: Acute Assessment and Plan: continue Finasteride and Tamsulosin reeval voiding as an outpatient Plan Patient has persistent urinary tension despite catheter and larger catheter was placed. Since that time patient no longer feels as if he is constipated in is a good flow from his urinary catheter. Urology Consult Note HPI Date Seen: 10/16/23 Requesting Physician: Sharon Yoder DO Primary Care Provider: Meliton Washburn MD Consult Narrative Narrative: Meliton Delacruz is a 83-year-old male with a past medical history of essential hypertension, hyperlipidemia, type 2 diabetes mellitus, BPH with chronic Mariee catheter for several years, mild memory loss, chronic anemia and chronic hyponatremia presented to the ER via ambulance from [facility] due to constipation and abdominal pressure and chest pressure.? The patient had a prostate artery embolization recently.? He has had difficulty voiding since with significant residuals. Ever since that time the patient has just generally not felt well.? He reports that he has been having persistent constipation since then but will have occasional squirts of stool.? The patient cannot tell me when he last had a bowel movement but ER provider reported the patient's last bowel movement had been the day prior to admission.? He had evidently had several bowel movements that day.? The patient not been witnessed to have any hematochezia or melena.? His Mariee catheter appeared to be functioning on arrival and was draining.? However patient is still reported general sensation of abdominal distension.? CT scan performed in the ER did demonstrate persistent retained urine in the bladder despite presence of Mariee catheter in appropriate position.?The mariee was replaced with a 20f coude cath.? Patient's catheter is draining currently.? Patient reports his abdominal discomfort has improved.? The patient had reported to the EMS that he was having chest pressure.? He denies any shortness of breath, cough or congestion.? He denies fevers or chills.? Lab performed in the ER demonstrated acute on chronic hyponatremia.? Patient reports he has been having general decrease in appetite.? He reports that no food tastes good.? He denies difficulty swallowing.? He has not had any nausea or vomiting. [facility] Past Medical History Medical History (Updated 10/16/23 @ 11:07 by Mathew Sood MD) Arterial vascular disease Arthritis Benign prostatic hyperplasia Chronic anemia Chronic indwelling Mariee catheter Diastolic dysfunction Echocardiogram July 2023: EF 55-60% grade 1 diastolic dysfunction, mild concentric left ventricular wall thickness, normal valves Essential (primary) hypertension Fracture of ankle with nonunion Mixed hyperlipidemia Peripheral autonomic neuropathy due to diabetes mellitus Seasonal allergies Traumatic arthritis of right ankle Trimalleolar fracture Type 2 diabetes mellitus Vision abnormalities Wears glasses Surgical History Surgical History History of prostate biopsy Hx of cholecystectomy Status post open reduction with internal fixation (ORIF) of fracture of ankle Family History Family History Father Diabetes mellitus Acute myocardial infarction Hypertension
[2023-10-16 11:40] LABS: Glucose Point of Care 147 mg/dl (65-105)
--- NOTE | 2023-10-16 11:42 | PC.NURSE ---
0800 TELEMETRY HR- 66, p- 0.12, QRS- 0.08, rhythm sinus rhythm
--- NOTE | 2023-10-16 12:12 | PCCCNOTE ---
On 10/16/23, the student, [Unique Saucedo ], provided care and completed [facility] documentation on this patient. I have reviewed the student's documentation and agree with the findings.
--- NOTE | 2023-10-16 12:22 | PC.NURSE ---
1200 telemetry: HR - 75, p-0.16, QRS- 0.06, rhythm- SR
[2023-10-16 12:24] LABS: Sodium 131 mmol/L (137-145)
--- NOTE | 2023-10-16 12:36 | PM.CNGS ---
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 It is intramuscular which was not described on the CT scan. It is 15 cm long which is its greatest dimension. It is barely palpable. I explained to the patient that this mass exist and is almost certainly a benign fatty tumor that has been there for many years. I also explained it could be removed as an outpatient. I described the procedure. Patient does not feel this has caused him any difficulty whatsoever. He would like to get his current urologic problems and hyponatremia resolved before looking into any other medical issues. Removal is totally elective and in fact he does not need to have it removed unless it would become symptomatic. I put my contact information in the discharge packet. He is welcome to call and see me at any point. No plans for surgery this admission and perfectly acceptable to not remove if remains asymptomatic. History of Present Illness Consult details Consult date: 10/16/23 Reason for consult: other (Left lower quadrant lipoma on CT scan) Requesting physician: Katiana Ryan APRN Narrative: Patient is an 83-year-old man who came into the hospital early this morning with lower abdominal discomfort, history constipation, and recent urologic procedure. He was found to have urinary retention and hyponatremia probably due to SIADH. He had a CT scan on admission which showed a left lower quadrant lipoma. I was asked to see the patient regarding this abnormality. Patient denies having known of this previously. He denies any pain in the area of the lipoma or noticing any kind of mass in the area. Essentially, it has been asymptomatic. Review of Systems Review of Systems: All systems reviewed & are unremarkable except as noted in HPI and below (HPI) [facility] Past Medical History Medical History Arterial vascular disease Arthritis Benign prostatic hyperplasia Chronic anemia Chronic indwelling Ahumada catheter Diastolic dysfunction Echocardiogram July 2023: EF 55-60% grade 1 diastolic dysfunction, mild concentric left ventricular wall thickness, normal valves Essential (primary) hypertension Fracture of ankle with nonunion Mixed hyperlipidemia Peripheral autonomic neuropathy due to diabetes mellitus Seasonal allergies Traumatic arthritis of right ankle Trimalleolar fracture Type 2 diabetes mellitus Vision abnormalities Wears glasses Surgical History Surgical History History of prostate biopsy Hx of cholecystectomy Status post open reduction with internal fixation (ORIF) of fracture of ankle Family History Family History Father Diabetes mellitus Acute myocardial infarction Hypertension Cerebrovascular accident Mother Family history of malignant neoplasm Social History Social History Social History: Surrogate medical decision maker: Fani Delacruz, spouse. Code status: Full code. Smoking packs per day: 1 Smoking cigarettes per day: 20.0 Years smoked: 14 Smoking pack-years: 14.00 Smoking status: Former smoker Tobacco type: cigarettes Alcohol intake: never Alcohol use details: FEW DRINKS/YEAR Substance use: never Substance use type: does not use Do You Feel Safe in your Home?: Yes Lack of Transportation: No Lack of Food: Never True Current Housing: I Have Housing Concerned About Future Housing: No Difficulty Paying Gas/Electric Bills: No Difficulty Paying for Meds: No Currently Unemployed: No Education: Trade/Vocational Certificate Difficulty w/ Childcare or Family Care: No Living arrangement
--- NOTE | 2023-10-16 13:59 | PM.IMPN ---
Progress Note: A&P Assessment and Plan (1) Urinary retention with incomplete bladder emptying: Code(s): R33.9 - Retention of urine, unspecified Status: Acute Assessment and Plan: Larger Ahumada catheter placed in ED, patient reporting relief Urology consulted, sees Dr. Siegel outpatient Will continue patient's home BPH medications UA culture pending (2) Hyponatremia: Code(s): E87.1 - Hypo-osmolality and hyponatremia Status: Chronic Assessment and Plan: likely secondary to SIADH based on urine electrolyte studies and clinical presentation. fluid restricted diet Sodium 131 Will continue to monitor with serial sodiums. (3) Type 2 diabetes mellitus: Qualifiers: Diabetes mellitus half-way insulin use: without termite helper use Diabetes mellitus complication status: with neurologic complications Diabetes mellitus complication detail: with polyneuropathy Qualified Code(s): E11.42 - Type 2 diabetes mellitus with diabetic polyneuropathy Code(s): E11.9 - Type 2 diabetes mellitus without complications Status: Chronic Assessment and Plan: Holding metformin low-dose sliding scale insulin Accu-Cheks a.c. HS hypoglycemia protocol (4) HTN (hypertension): Qualifiers: Hypertension type: primary hypertension Qualified Code(s): I10 - Essential (primary) hypertension Code(s): I10 - Essential (primary) hypertension Status: Chronic Assessment and Plan: Continue home amlodipine and lisinopril (5) Chronic indwelling Ahumada catheter: Code(s): Z97.8 - Presence of other specified devices Status: Inactive Assessment and Plan: See above (6) SIADH (syndrome of inappropriate ADH production): Code(s): E22.2 - Syndrome of inappropriate secretion of antidiuretic hormone Status: Chronic Assessment and Plan: Of Plan Subjective Date/time seen: 10/16/23 13:59 Interval history: Patient reporting he feels relief from his abdominal pressure, he was able to eat breakfast without issue. He denies any chest pain or SOB. Patient follows with Dr. Siegel already, urology consulted. Gen surgery consulted as a lipoma was found incidentally on CT. Benign and doesn't require inpatient follow, patient can elect to f/u outpatient if desired. Review of Systems Review of Systems: All systems reviewed & are unremarkable except as noted in HPI and below Exam Narrative: General appearance: Well-developed, well-nourished in no acute distress Head: Normocephalic, nontraumatic Eyes: EOMI, PERRLA ENT: moist mucus membranes Neck: Supple Chest: Lungs clear to auscultation Heart: RRR, chronic edema lower extremity bilaterally up to the knees Abdomen: Soft, nontender, BS present; urethral Ahumada catheter in place Skin: Normal color, no wounds, lesions or rashes Musculoskeletal: Normal range of motion, nontender back Neurologic: Alert and oriented ?3, no focal deficits Objective Data Vital Signs Vital Signs: Vital Signs - 24 hr 10/15/23 17:19 10/15/23 17:29 10/15/23 17:32 Temperature 97.7 F Pulse Rate 76 74 Respiratory Rate 14 Blood Pressure 126/72 Pulse Oximetry 99 99 Oxygen Delivery Room Air Room Air 10/15/23 18:40 10/15/23 19:04 10/15/23 19:05 Temperature 98 F Pulse Rate 70 68 65 Respiratory Rate 21 H 19 Blood Pressure 130/63 118/57 L Pulse Oximetry 99 100 Oxygen Delivery 10/15/23 19:05 10/15/23 20:53 10/15/23 21:49 Temperature Pulse Rate 63 65 Respiratory Rate 22 H 16 Blood Pressure 135/69 139/77 Pulse Oximetry 100 100 99 Oxygen Delivery Room Air 10/15/23 22:13 10/15/23 22:30 10/16/23 06:00 Temperature 97.7 F 98.1 F Pulse Rate 59 L 63 79 Respiratory Rate 16 16 18 Blood Pressure 130/68 151/62 H 142/71 H Pulse Oximetry 96 99 99 Oxygen Delivery 10/16/23 00:00 10/16/23 04:00 10/16/23 09:44 Temperature Pulse Rate 61 65 Respirat
[2023-10-16 14:00] VITALS: BP 148/64; PULSE 67; RESP 21; TEMP 36.5; O2SAT 97
[2023-10-16 16:01] LABS: Sodium 129 mmol/L (137-145)
[2023-10-16 17:07] LABS: Glucose Point of Care 129 mg/dl (65-105)
[2023-10-16 20:27] LABS: Glucose Point of Care 153 mg/dl (65-105)
[2023-10-16 20:27] LABS: Sodium 127 mmol/L (137-145)
[2023-10-16] MEDS: DOCUSATE SODIUM 100 MG CAPSULE PO (21:06)
[2023-10-16 21:21] VITALS: BP 127/64; PULSE 61; RESP 18; TEMP 37; O2SAT 98
[2023-10-17] MEDS: ALPRAZolam (*CRX) 0.25 MG TABLET PO ×2 (00:30→20:46)
--- NOTE | 2023-10-17 00:57 | PC.NURSE ---
Patient called out around 0015 and stated he needed to get up, he was going crazy . Jorge Guzman CNA went into room to assist patient with ambulating and patient verbalized that suicide would just make it easier . This nurse went in to assess patient and tried several interventions (medication, position change, ambulating in hallways, discussion, etc..) and patient finally got comfortable in recliner. As we were repositioning patient, he verbalized twice that he just knows suicide would be better, but he couldn't leave his and granddaughter like that . This nurse further assessed the situation and he said there was no actual plan to do it. Hong Oliva CNA also heard patient say suicide would just be best at this point . Dr. Yoder was contacted to be made aware of patients change in condition. No new orders or precautions put in place. Will continue to monitor and provide interventions as he requests.
[2023-10-17 05:41] VITALS: BP 139/73; PULSE 81; RESP 16; TEMP 36.5; O2SAT 100
[2023-10-17 05:58] LABS: Basophils Percent Auto 0.6 % (0.2-1.2); Eosinophils Absolute Auto 0.1 K/mm3 (0-0.3); Eosinophils Percent Auto 1.4 % (0-4.4); Hematocrit 38.8 % (42.0-52.0); Hemoglobin 12.9 g/dL (14.0-18.0); Immature Granulocyte Absolute 0.02 K/mm3 (0.00-0.031); Immature Granulocyte Percent A 0.3 % (0-0.5); Lymphocytes Absolute Auto 0.88 K/mm3 (0.9-3.2); Lymphocytes Percent Auto 12.6 % (18.3-44.2); Mean Corpuscular HGB Conc 33.2 g/dl (32-36); Mean Corpuscular Hemoglobin 29.1 pg (26-34); Mean Corpuscular Volume 87.6 fl (80-100); Mean Platelet Volume 9.1 fl (7.4-10.4); Monocytes Absolute Auto 0.5 K/mm3 (0.1-0.6); Monocytes Percent Auto 6.6 % (2.6-8.5); Neutrophils Absolute Auto 5.5 K/mm3 (1.3-6.7); Neutrophils Percent Auto 78.5 % (45.5-73.1); Platelet Count Result 311 k/mm3 (150-375); Red Blood Count 4.43 M/mm3 (4.6-6.20); Red Cell Distribution Width 12.8 % (11.5-14.5)
[2023-10-17 06:09] LABS: Anion Gap 10 mmol/L (4-12); Blood Urea Nitrogen 10 mg/dL (9-20); Calcium 8.8 mg/dL (8.4-10.2); Carbon Dioxide 23 mmol/L (22-30); Chloride 97 mmol/L (98-107); Estimated CRCL calculation 76 ml/min; Estimated Glomerular Filt Rate > 60; Glucose 136 mg/dL (65-110); Potassium 4.1 mmol/L (3.4-5.0); Sodium 130 mmol/L (137-145)
[2023-10-17 08:00] VITALS: BP 131/64; PULSE 63; RESP 16; TEMP 36.6; O2SAT 100
[2023-10-17 08:05] LABS: Glucose Point of Care 150 mg/dl (65-105)
[2023-10-17] MEDS: amLODIPine BESYLATE 5 MG TABLET 10 MG BY MOUTH (08:44)
[2023-10-17] MEDS: ENOXAPARIN 40 MG/0.4 ML SYRINGE SUB-Q (08:44)
[2023-10-17] MEDS: ASPIRIN 81 MG ENTERIC TABLET PO ×2 (08:44→16:50)
[2023-10-17] MEDS: LORATADINE 10 MG TABLET PO (08:44)
[2023-10-17] MEDS: FINASTERIDE 5 MG TABLET PO (08:44)
[2023-10-17 08:45] VITALS: RESP 16; O2SAT 100
[2023-10-17] MEDS: lisinopriL 20 MG TABLET PO (08:45)
[2023-10-17] MEDS: PANTOPRAZOLE 40 MG TABLET PO (08:45)
[2023-10-17] MEDS: SERTRALINE HCL 50 MG TABLET PO (08:45)
[2023-10-17] MEDS: MULTIVITAMINS THERAPEUTIC TAB (*BKC) 1 TABLET PO (08:45)
[2023-10-17] MEDS: FLUTICASONE PROPIONATE 0.05% NA SPR 16 GM BTL (*BKC) 1 SPRAY NASAL ×2 (08:46→16:49)
--- NOTE | 2023-10-17 09:34 | WPDUROPN2 ---
Progress Note: A&P Assessment and Plan (1) Urinary retention with incomplete bladder emptying: Code(s): R33.9 - Retention of urine, unspecified Status: Acute Assessment and Plan: Secondary to recent PAE for large prostate Noted to have retention despite mariee on admission therefore was upsized and now draining well Mariee to be continued on discharge (2) Chronic indwelling Mariee catheter: Code(s): Z97.8 - Presence of other specified devices Status: Inactive Assessment and Plan: Changed to 20 Fr coude catheter on 10/15/23 Continue mariee with monthly catheter changes (3) BPH (benign prostatic hyperplasia): Qualifiers: Lower urinary tract symptom detail: urinary retention Code(s): N40.0 - Benign prostatic hyperplasia without lower urinary tract symptoms Status: Acute Assessment and Plan: S/p PAE 10/04/23 which was not successful due to calcifications - planned for repeat in several weeks Continue Finasteride and Tamsulosin Will need outpatient f/u for further management Subjective Subjective Date/Time Seen: 10/17/23 09:34 Interval history: Meliton is doing well today. He reports no issues with his mariee catheter which is draining clear yellow urine. Denies suprapubic pain or pressure. Denies bladder spasms. Denies nausea, vomiting, fever, chills. Creatinine is 0.7. Urine culture is pending. Review of Systems Review of Systems: All systems reviewed & are unremarkable except as noted in HPI and below Exam Narrative: General: Awake, alert, comfortable, no acute distress HEENT: Normocephalic, atraumatic, sclerae anicteric Respiratory: Normal respiratory effort, no accessory muscle use Abdomen: Nondistended, soft, nontender : Mariee catheter draining clear yellow urine Skin: Normal coloration, warm and dry Neurologic: No focal neuro deficits noted Psychiatric: Appropriate mood and affect, judgment and insight intact Objective Data Vital Signs Vital Signs: Vital Signs - 24 hr 10/16/23 09:44 10/16/23 14:00 10/16/23 20:00 Temperature 97.7 F Pulse Rate 67 Respiratory Rate 21 H Blood Pressure 136/65 148/64 H Pulse Oximetry 97 Oxygen Delivery Room Air 10/16/23 21:21 10/17/23 05:41 10/17/23 08:00 Temperature 98.6 F 97.7 F 97.8 F Pulse Rate 61 81 63 Respiratory Rate 18 16 16 Blood Pressure 127/64 139/73 131/64 Pulse Oximetry 98 100 100 Oxygen Delivery Intake/Output Intake/Output: Intake & Output 10/14/23 10/15/23 10/16/23 10/17/23 23:59 23:59 23:59 23:59 Intake Total 1000 1180 100 Output Total 450 2450 500 Balance 550 -1270 -400 Meds/Results Medications: Active Medications Generic Name Dose Route Start Last Admin Trade Name Freq PRN Reason Stop Dose Admin Acetaminophen 650 mg 10/15/23 21:31 Acetaminophen 325 Mg Tablet PO Q4H PRN Mild Pain (1-3) or Fever Alprazolam 0.25 mg 10/16/23 01:44 10/17/23 00:30 Alprazolam (*Crx) 0.25 Mg Tablet PO 0.25 mg TID PRN Administration anxiety Amlodipine Besylate 10 mg 10/16/23 09:00 10/17/23 08:44 Amlodipine Besylate 5 Mg Tablet BY MOUTH 10 mg DAILY PETER Administration Aspirin 81 mg 10/16/23 09:00 10/17/23 08:44 Aspirin 81 Mg Enteric Tablet PO 81 mg BID PETER Administration Dextrose 12.5 gm 10/16/23 01:48 Dextrose 50% 25 Gm/50 Ml Syringe IV PUSH PRN PRN Hypoglycemia Protocol Docusate Sodium 100 mg 10/16/23 21:00 10/17/23 08:45 Docusate Sodium 100 Mg Capsule PO Not Given Q12HR PETER Enoxaparin Sodium 40 mg 10/16/23 09:00 10/17/23 08:44 Enoxaparin 40 Mg/0.4 Ml Syringe SUB-Q 40 mg DAILY PETER Administration Finasteride 5 mg 10/16/23 09:00 10/17/23 08:44 Finasteride 5 Mg Tablet PO 5 mg DAILY PETER Administration Fluticasone Propionate 1 spray 10/16/23 09:00 10/17/23 08:46 Fluticasone Propionate 0.05% Na Spr 16 Gm Btl (*Bkc) NASAL 1 spray
[2023-10-17] MEDS: SODIUM CHLORIDE 500 MG TABLET PO (10:43)
[2023-10-17] MEDS: CIPROFLOXACIN 250 MG TABLET PO (11:18)
[2023-10-17] MEDS: CEFEPIME 1 GM/NS 50 ML 1 GM/50 ML BAG IVPB ×2 (11:46→20:46)
[2023-10-17 11:54] LABS: Glucose Point of Care 131 mg/dl (65-105)
[2023-10-17 13:08] LABS: Osmolality, Urine 138 mOsm/kg (50-1200)
--- NOTE | 2023-10-17 13:48 | PM.IMPN ---
Progress Note: A&P Assessment and Plan (1) Urinary retention with incomplete bladder emptying: Code(s): R33.9 - Retention of urine, unspecified Status: Acute Assessment and Plan: Larger Ahumada catheter placed in ED, patient reporting relief Urology consulted, sees Dr. Siegel outpatient Will continue patient's home BPH medications UA culture showing prelim growth of Enterobacter cloacae / asburia started on cefepime given history of ESBL (2) Hyponatremia: Code(s): E87.1 - Hypo-osmolality and hyponatremia Status: Chronic Assessment and Plan: likely secondary to SIADH based on urine electrolyte studies and clinical presentation. fluid restricted diet Sodium 130 today, will start on sodium chloride tabs Will continue to monitor with serial sodiums. (3) Type 2 diabetes mellitus: Qualifiers: Diabetes mellitus intermodal customer service insulin use: without care home use Diabetes mellitus complication status: with neurologic complications Diabetes mellitus complication detail: with polyneuropathy Qualified Code(s): E11.42 - Type 2 diabetes mellitus with diabetic polyneuropathy Code(s): E11.9 - Type 2 diabetes mellitus without complications Status: Chronic Assessment and Plan: Holding metformin low-dose sliding scale insulin Accu-Cheks a.c. HS hypoglycemia protocol (4) HTN (hypertension): Qualifiers: Hypertension type: primary hypertension Qualified Code(s): I10 - Essential (primary) hypertension Code(s): I10 - Essential (primary) hypertension Status: Chronic Assessment and Plan: Continue home amlodipine and lisinopril (5) Chronic indwelling Ahumada catheter: Code(s): Z97.8 - Presence of other specified devices Status: Inactive Assessment and Plan: See above urology following, sees Dr. Siegel outpatient (6) SIADH (syndrome of inappropriate ADH production): Code(s): E22.2 - Syndrome of inappropriate secretion of antidiuretic hormone Status: Chronic Plan Subjective Date/time seen: 10/17/23 13:48 Interval history: Patient in no acute distress this morning, but reports she had an anxiety attack last night. This has been a recent problem and he was started on Xanax TID and certraline by his provider recently. He denies any chest pain or SOB. Urology following. Was planning for d/c, but prelim urine cultures popped positive for Enterobacter cloacae / asburia. Patient has a history of ESBL, and discussed with patient the importance of waiting for susceptibilities. Review of Systems Review of Systems: All systems reviewed & are unremarkable except as noted in HPI and below Exam Narrative: General appearance: Well-developed, well-nourished in no acute distress Head: Normocephalic, nontraumatic Eyes: EOMI, PERRLA ENT: moist mucus membranes Neck: Supple Chest: Lungs clear to auscultation Heart: RRR, chronic edema lower extremity bilaterally up to the knees Abdomen: Soft, nontender, BS present; urethral Ahumada catheter in place Skin: Normal color, no wounds, lesions or rashes Musculoskeletal: Normal range of motion, nontender back Neurologic: Alert and oriented ?3, no focal deficits Objective Data Vital Signs Vital Signs: Vital Signs - 24 hr 10/16/23 14:00 10/16/23 20:00 10/16/23 21:21 Temperature 97.7 F 98.6 F Pulse Rate 67 61 Respiratory Rate 21 H 18 Blood Pressure 148/64 H 127/64 Pulse Oximetry 97 98 Oxygen Delivery Room Air 10/17/23 05:41 10/17/23 08:00 10/17/23 08:45 Temperature 97.7 F 97.8 F Pulse Rate 81 63 Respiratory Rate 16 16 16 Blood Pressure 139/73 131/64 Pulse Oximetry 100 100 100 Oxygen Delivery Room Air Intake/Output Intake/Output: Intake & Output 10/14/23 10/15/23 10/16/23 10/17/23 23:59 23:59 23:59 23:59 Intake Total 1000 1180 340 Output Total 450 2450 500 Balance 550 -1270 -160 Meds/Results Medications: Acti
[2023-10-17 14:00] VITALS: BP 128/62; PULSE 60; RESP 16; TEMP 36.5; O2SAT 100
[2023-10-17 17:02] LABS: Glucose Point of Care 119 mg/dl (65-105)
[2023-10-17 17:25] VITALS: BP 163/77; PULSE 76; RESP 18; TEMP 36.6; O2SAT 98
[2023-10-17 20:12] VITALS: BP 139/68; PULSE 64; RESP 20; TEMP 36.8; O2SAT 98
[2023-10-17] MEDS: DOCUSATE SODIUM 100 MG CAPSULE PO (20:47)
[2023-10-17 21:55] LABS: Glucose Point of Care 158 mg/dl (65-105)
[2023-10-18] VITALS: BP 144/72; PULSE 66; RESP 18; TEMP 36.2; O2SAT 97
[2023-10-18 04:20] VITALS: BP 144/72; PULSE 66; RESP 18; TEMP 36.2; O2SAT 97
[2023-10-18 05:05] LABS: Basophils Absolute Auto 0.1 K/mm3 (0.0-0.1); Basophils Percent Auto 0.7 % (0.2-1.2); Eosinophils Absolute Auto 0.2 K/mm3 (0-0.3); Eosinophils Percent Auto 3.1 % (0-4.4); Hematocrit 38.4 % (42.0-52.0); Hemoglobin 12.5 g/dL (14.0-18.0); Immature Granulocyte Absolute 0.02 K/mm3 (0.00-0.031); Immature Granulocyte Percent A 0.3 % (0-0.5); Lymphocytes Absolute Auto 0.94 K/mm3 (0.9-3.2); Lymphocytes Percent Auto 13.3 % (18.3-44.2); Mean Corpuscular HGB Conc 32.6 g/dl (32-36); Mean Corpuscular Hemoglobin 28.8 pg (26-34); Mean Corpuscular Volume 88.5 fl (80-100); Mean Platelet Volume 9.1 fl (7.4-10.4); Monocytes Absolute Auto 0.6 K/mm3 (0.1-0.6); Monocytes Percent Auto 7.9 % (2.6-8.5); Neutrophils Absolute Auto 5.3 K/mm3 (1.3-6.7); Neutrophils Percent Auto 74.7 % (45.5-73.1); Platelet Count Result 295 k/mm3 (150-375); Red Blood Count 4.34 M/mm3 (4.6-6.20); Red Cell Distribution Width 12.5 % (11.5-14.5); White Blood Count 7.1 K/mm3 (4.5-10.0)
[2023-10-18 05:17] LABS: Anion Gap 6 mmol/L (4-12); Blood Urea Nitrogen 13 mg/dL (9-20); Calcium 8.8 mg/dL (8.4-10.2); Carbon Dioxide 25 mmol/L (22-30); Chloride 98 mmol/L (98-107); Estimated CRCL calculation 67 ml/min; Estimated Glomerular Filt Rate > 60; Glucose 120 mg/dL (65-110); Potassium 4.2 mmol/L (3.4-5.0); Sodium 129 mmol/L (137-145)
[2023-10-18 07:35] LABS: Glucose Point of Care 114 mg/dl (65-105)
[2023-10-18 07:54] VITALS: RESP 18; O2SAT 97
[2023-10-18 08:00] VITALS: BP 139/69; PULSE 73; RESP 18; TEMP 36.6; O2SAT 97
[2023-10-18] MEDS: FLUTICASONE PROPIONATE 0.05% NA SPR 16 GM BTL (*BKC) 1 SPRAY NASAL (08:03)
[2023-10-18] MEDS: polyethylene glycoL 3350 17 GM POWD.PACK PO (08:03)
[2023-10-18] MEDS: LORATADINE 10 MG TABLET PO (08:04)
[2023-10-18] MEDS: ASPIRIN 81 MG ENTERIC TABLET PO (08:04)
[2023-10-18] MEDS: FINASTERIDE 5 MG TABLET PO (08:04)
[2023-10-18] MEDS: MULTIVITAMINS THERAPEUTIC TAB (*BKC) 1 TABLET PO (08:04)
[2023-10-18] MEDS: PANTOPRAZOLE 40 MG TABLET PO (08:04)
[2023-10-18] MEDS: SERTRALINE HCL 50 MG TABLET PO (08:05)
[2023-10-18] MEDS: DOCUSATE SODIUM 100 MG CAPSULE PO (08:05)
[2023-10-18] MEDS: lisinopriL 20 MG TABLET PO (08:05)
[2023-10-18] MEDS: CEFEPIME 1 GM/NS 50 ML 1 GM/50 ML BAG IVPB (08:05)
[2023-10-18] MEDS: amLODIPine BESYLATE 5 MG TABLET 10 MG BY MOUTH (08:05)
[2023-10-18] MEDS: SODIUM CHLORIDE 500 MG TABLET PO (08:05)
[2023-10-18] MEDS: ENOXAPARIN 40 MG/0.4 ML SYRINGE SUB-Q (08:14)
--- NOTE | 2023-10-18 09:04 | PM.DS ---
DS: Admitting Diagnosis Discharge Date 10/18/23 Admitting Diagnosis Urinary retention with incomplete bladder emptying Hyponatremia Chest pain Type 2 diabetes mellitus Hypertension Chronic indwelling Ahumada catheter Abnormal urinalysis SIADH DS: Summary Hospital Course Reason for hospitalization: Urinary retention with incomplete bladder emptying Hyponatremia Chest pain Type 2 diabetes mellitus Hypertension Chronic indwelling Ahumada catheter Abnormal urinalysis SIADH Hospital Course: This is an 83-year-old male who presented on 10/16/2023 with complaints of constipation and pressure. Workup in the hospital included a CT scan of the abdomen and pelvis which showed cystitis versus lateral thickening from chronic outlet obstruction, moderate urinary bladder distention despite the presence of the catheter, 11 cm left lower abdominal wall lipoma. Chest x-ray was negative. Urology was consulted and a coude was placed instead of his regular indwelling Ahumada, he was started on tamsulosin and finasteride. General surgery was also consulted for the lipoma however this can be taking care of on an outpatient basis per general surgery team. His urine culture came back with Enterobacter cloacae/absuria. He has a history of ESBL. He was started on Bactrim. On examination today patient alert oriented x3 lying in the bed. He denies any new complaints today. Labs were essentially stable other than a sodium of 129 which looks like he has chronic hyponatremia baseline. Patient is stable for discharge at this time. He will need to follow up with Urology in a couple weeks. He was discharged with his Ahumada in place. Final diagnosis: Urinary tract infection, urinary retention with incomplete bladder emptying, chronic indwelling Ahumada catheter, hyponatremia Status at Discharge Cognitive/behavioral status at discharge: Alert oriented x3 Functional status at discharge: independent ambulation Overall status at discharge: patient is progressing back to baseline Time Spent with Patient Time attestation: Total time spent providing and/or coordinating discharge services: Time spent: Greater than 30 minutes Exam Narrative: General: In no acute distress, well nourished Head: atraumatic, no encephalopathy Eyes: EOMI, PERRLA, sclera clear ENT: moist mucous membranes, nasal passages clear Neck: supple, no JVD, no adenopathy, trachea midline Cardiac: Normal S1, and splitting S2. No murmur, gallops or friction rubs, peripheral pulses intact. Respiratory: Lungs clear to auscultation, no adventitious lung sounds, currently on room air Gastrointestinal: soft, non-distended, non-tender, normoactive bowel sounds. : voiding without difficulty. Extremities: moves all extremities well, no edema, good ROM, strength 5/5 Skin: clean, dry, intact. No wounds or lesions. Neuro: Alert and oriented x4, cranial nerves intact, no neuro deficits. Psych: normal mood, normal affect, interactive DS: Data Data Completed and Pending Completed studies during hospitalization: Abdomen/pelvis CT Chest x-ray Pending studies at discharge: None Labs on day of discharge: Labs from last 24 hours 10/18/23 10/18/23 10/17/23 07:32 04:47 20:09 WBC 7.1 RBC 4.34 L Hgb 12.5 L Hct 38.4 L MCV 88.5 MCH 28.8 MCHC 32.6 RDW 12.5 Plt Count 295 MPV 9.1 Immature Gran % (Auto) 0.3 Neut % (Auto) 74.7 H Lymph % (Auto) 13.3 L [place] % (Auto) 7.9 Eos % (Auto) 3.1 Baso % (Auto) 0.7 Lymph # (Auto) 0.94 [place] # (Auto) 0.6 Eos # (Auto) 0.2 Baso # (Auto) 0.1 Abs Immat Gran (auto) 0.02 Absolute Neuts (auto) 5.3 Absolute Nucleated RBC 0.000 Nucleated RBC % 0.0 Sodium 129 L Potassium 4.2 Chloride 98 Carbon Dioxide 25 Anion Gap 6 BUN 13 Creatinine 0.80 Estim Creat Clear Calc 67 Estimated GFR > 60 Glucose 120 H POC Capillary Glucose 114 H 158 H Serum Osmolality Calcium 8.8
--- NOTE | 2023-10-18 09:45 | WPDUROPN2 ---
Progress Note: A&P Assessment and Plan (1) Urinary retention with incomplete bladder emptying: Code(s): R33.9 - Retention of urine, unspecified Status: Acute Assessment and Plan: Secondary to enlarged prostate for which he recently had PAE Noted to have retention despite mariee on admission therefore catheter was upsized and now draining well Mariee to be continued on discharge (2) Urinary tract infection: Code(s): N39.0 - Urinary tract infection, site not specified Status: Acute Assessment and Plan: Urine culture with growth of Enterobacter Continue antibiotics tailored to urine culture (3) Chronic indwelling Mariee catheter: Code(s): Z97.8 - Presence of other specified devices Status: Inactive Assessment and Plan: Changed to 20 Fr coude catheter on 10/15/23 Continue mariee with monthly catheter changes (4) BPH (benign prostatic hyperplasia): Qualifiers: Lower urinary tract symptom detail: urinary retention Code(s): N40.0 - Benign prostatic hyperplasia without lower urinary tract symptoms Status: Acute Assessment and Plan: S/p PAE 10/04/23 which was not successful due to calcifications - planning for repeat treatment in several weeks Continue Finasteride and Tamsulosin Will need outpatient f/u for further management Subjective Subjective Date/Time Seen: 10/18/23 09:45 Interval history: Meliton is doing well today. Reports no concerns. Mariee catheter draining without issue. He does endorse feeling constipated. Last BM was yesterday. He has had several medications for constipation but has not had a bowel movement yet today. Review of Systems Review of Systems: All systems reviewed & are unremarkable except as noted in HPI and below Exam Narrative: General: Awake, alert, comfortable, no acute distress HEENT: Normocephalic, atraumatic, sclerae anicteric Respiratory: Normal respiratory effort, no accessory muscle use Abdomen: Nondistended, soft, nontender : Mariee catheter draining clear yellow urine Skin: Normal coloration, warm and dry Neurologic: No focal neuro deficits noted Psychiatric: Appropriate mood and affect, judgment and insight intact Objective Data Vital Signs Vital Signs: Vital Signs - 24 hr 10/17/23 14:00 10/17/23 17:25 10/17/23 19:27 Temperature 97.7 F 98 F Pulse Rate 60 76 Respiratory Rate 16 18 Blood Pressure 128/62 163/77 H Pulse Oximetry 100 98 Oxygen Delivery Room Air 10/17/23 20:12 10/18/23 00:00 10/18/23 04:20 Temperature 98.2 F 97.2 F L 97.2 F L Pulse Rate 64 66 66 Respiratory Rate 20 18 18 Blood Pressure 139/68 144/72 H 144/72 H Pulse Oximetry 98 97 97 Oxygen Delivery 10/18/23 07:54 10/18/23 08:00 Temperature 97.8 F Pulse Rate 73 Respiratory Rate 18 18 Blood Pressure 139/69 Pulse Oximetry 97 97 Oxygen Delivery Room Air Intake/Output Intake/Output: Intake & Output 10/15/23 10/16/23 10/17/23 10/18/23 23:59 23:59 23:59 23:59 Intake Total 1000 1180 920 248.3 Output Total 450 2450 1400 400 Balance 550 -8240 -480 -151.7 Meds/Results Medications: Active Medications Generic Name Dose Route Start Last Admin Trade Name Freq PRN Reason Stop Dose Admin Acetaminophen 650 mg 10/15/23 21:31 Acetaminophen 325 Mg Tablet PO Q4H PRN Mild Pain (1-3) or Fever Alprazolam 0.25 mg 10/16/23 01:44 10/17/23 20:46 Alprazolam (*Crx) 0.25 Mg Tablet PO 0.25 mg TID PRN Administration anxiety Amlodipine Besylate 10 mg 10/16/23 09:00 10/18/23 08:05 Amlodipine Besylate 5 Mg Tablet BY MOUTH 10 mg DAILY PETER Administration Aspirin 81 mg 10/16/23 09:00 10/18/23 08:04 Aspirin 81 Mg Enteric Tablet PO 81 mg BID PETER Administration Dextrose 12.5 gm 10/16/23 01:48 Dextrose 50% 25 Gm/50 Ml Syringe IV PUSH PRN PRN Hypoglycemia Protocol Docusate Sodium 100 mg 10/16/23 21:00 10/18/23 0
[2023-10-18] MEDS: SULFAMETHOXAZOLE/TRIMETHOPRIM 800/160 MG DS TABLET 1 TAB PO (09:49)
[2023-10-18 11:45] LABS: Glucose Point of Care 145 mg/dl (65-105)
--- NOTE | 2023-10-18 15:11 | PCCCNOTE ---
On 10/18/23, the student, Unique Saucedo, provided care and completed [facility] documentation on this patient. I have reviewed the student's documentation and agree with the findings.
== END 2023-10-18 15:30 | disposition home or self-care (01) | DRG 690 ==
LOC: ANHED 21:41 → ANH2MED 22:18
PROVIDERS: Nurse Practitioner; Admitting Provider Internal Medicine; Emergency Provider Emergency Medicine; PCP Family Medicine; Visit Provider Nurse Practitioner Acute Care
DX: N30.90 Cystitis, unspecified without hematuria (principal); Z16.12 Extended spectrum beta lactamase (ESBL) resistance; E22.2 Syndrome of inappropriate secretion of antidiuretic hormone; B96.89 Other specified bacterial agents as the cause of diseases classified elsewhere; R33.8 Other retention of urine; D17.5 Benign lipomatous neoplasm of intra-abdominal organs; D64.9 Anemia, unspecified; E78.2 Mixed hyperlipidemia; E11.42 Type 2 diabetes mellitus with diabetic polyneuropathy; I10 Essential (primary) hypertension; N40.1 Benign prostatic hyperplasia with lower urinary tract symptoms; R07.9 Chest pain, unspecified; R41.3 Other amnesia; T83.098A Other mechanical complication of other urinary catheter, initial encounter; Z90.49 Acquired absence of other specified parts of digestive tract; Z87.891 Personal history of nicotine dependence; Z79.84 Long term (current) use of oral hypoglycemic drugs; Z79.82 Long term (current) use of aspirin
CPT/HCPCS: 36415; 71045; 74177; 80048; 80053; 81001; 82570; 82948; 83690; 83930; 83935; 84295; 84300; 84484; 85025; 85610; 85730; 87077; 87086; 87088; 87186; 93005; 96360; 96365; 96366; 96372; 99215; 99285; A9270; G0378; G0463; J0692; J1650; J7030; Q9967

== ENCOUNTER 2023-10-18 22:06 | Emergency (ER) | payer MEDICARE, SELFPAY ==
[2023-10-18 22:26] VITALS: BP 126/63; PULSE 63; RESP 16; TEMP 36.3; O2SAT 100
--- NOTE | 2023-10-19 00:28 | ED.MALEGU ---
HPI - Male Genitourinary General Chief complaint: Urogenital-Male Stated complaint: catheter not draining, dizziness, constipated Time Seen by Provider: 10/18/23 23:55 History of Present Illness HPI Narrative: 83-year-old male with history of hypertension, hyperlipidemia, type 2 diabetes chronic indwelling Ahumada catheter for BPH presents to emergency department for catheter malfunction. Patient's 's is at bedside to assist with history. States the patient has not had any output since 7:30 p.m.. He is reporting some suprapubic discomfort secondary to this. No clots, fevers, nausea or vomiting. No He has followed with Dr. Siegel outpatient and had recent PE performed on 10/04/[address] Mercer which was unsuccessful secondary to calcifications per . States they plan to re-attempt the procedure in a few weeks. Patient is on finasteride and tamsulosin for retention. Patient was discharged on the afternoon of 10/18/2023 after admission for urinary retention and constipation. He was discharged home with Bactrim for a Enterobacter cloacae infection which is susceptible to Bactrim. Related Data Home Medications Medication Instructions Recorded Confirmed cetirizine 10 mg tablet (Zyrtec) 10 mg PO DAILY 07/04/19 10/15/23 multivitamin (Multiple Vitamins 1 tablet PO DAILY 02/29/20 10/15/23 tablet) finasteride 5 mg tablet 5 mg PO DAILY 02/26/22 10/15/23 mecobalamin (vitamin B12) 1,000 1,000 mcg PO HS 05/18/22 10/15/23 mcg chewable tablet ascorbate calcium (vitamin C) 500 500 mg PO DAILY 04/15/23 10/15/23 mg tablet aspirin 81 mg tablet,delayed 192 mg PO QAM 10/15/23 10/15/23 release ibuprofen 600 mg tablet 600 mg PO TID PRN Pain, Mild 10/15/23 10/15/23 sertraline 50 mg tablet 50 mg PO DAILY 10/16/23 10/16/23 Allergies Allergy/AdvReac Type Severity Reaction Status Date / Time adhesive tape Allergy Mild Rash Verified 10/15/23 22:24 neomycin Allergy Mild Rash Verified 10/15/23 22:24 Sulfa (Sulfonamide AdvReac Intermediate Nausea Verified 10/15/23 22:24 Antibiotics) Review of Systems Review of Systems: CONSTITUTIONAL: Denies fever, chills, or sweats. EYES: Denies visual changes, redness, or discharge. ENT: Denies rhinorrhea, congestion, sore throat, or otalgia. CARDIOVASCULAR: Denies chest pain, palpitations, or edema. RESPIRATORY: Denies cough or dyspnea. GASTROINTESTINAL: Denies abdominal pain, nausea, vomiting, or diarrhea. GENITOURINARY: See HPI SKIN: Denies rash or itching. MUSCULOSKELETAL: Denies back pain, joint pain, or myalgia. NEUROLOGIC: Denies headache, numbness, or weakness. PSYCHIATRIC: Denies anxiety or depression. [facility] Past Medical History Medical History Arterial vascular disease Arthritis Benign prostatic hyperplasia Chronic anemia Chronic indwelling Ahumada catheter Diastolic dysfunction Echocardiogram July 2023: EF 55-60% grade 1 diastolic dysfunction, mild concentric left ventricular wall thickness, normal valves Essential (primary) hypertension Fracture of ankle with nonunion Mixed hyperlipidemia Peripheral autonomic neuropathy due to diabetes mellitus Seasonal allergies Traumatic arthritis of right ankle Trimalleolar fracture Type 2 diabetes mellitus Vision abnormalities Wears glasses Surgical History Surgical History History of prostate biopsy Hx of cholecystectomy Status post open reduction with internal fixation (ORIF) of fracture of ankle Family History Family History Father Diabetes mellitus Acute myocardial infarction Hypertension Cerebrovascular accident Mother Family history of malignant neoplasm Social History Social History Social History: Surrogate medical decision maker: Fani Delacruz, spouse. Code status: Full code
[2023-10-19 01:08] LABS: Appearance Urine Turbid (Clear); Bacteria Urine 2+ /hpf; Bilirubin Urine Negative (Negative); Blood Urine 3+ (Negative); Budding Yeast Urine Present /hpf; Color Urine Yellow (Yellow); Glucose Urine UA Negative (Negative); Ketones Urine 2+ mg/dL (Negative); Leukocyte Esterase Ur 3+ LEU/UL (Negative); Need Manual Microscopic Reviewed; Nitrate Urine Negative (Negative); Non Pathogenic Casts >20; Protein Urine 1+ mg/dL (Negative); RBC Urine >100 /hpf (0-2); Specific Grav Ur 1.021 (1.001-1.035); Squamous Epithelial Cell Urine Occasional /hpf (Few); WBC Urine >100 /hpf (0-3)
[2023-10-19 01:13] LABS: Add Urine Microscopic? YES
--- NOTE | 2023-10-19 08:53 | P.CDI_ITS ---
yes UTI was related to chronic indwelling mraiee catheter. CDI Query Clarification Request Urine culture from 10/15/23 grew Enterobacter Cloacae/ asburia Patient discharged on Bactrim DS 1 tab Q 12hrs on 10/18/23. Chronic indwelling Mariee catheter documented Clarification request - UTI has been documented, chronic indwelling mariee catheter documented. Please clarify if UTI is: * due to/associated with chronic indwelling mariee catheter * not due to/associated with chronic indwelling mariee catheter * unable to determine
--- NOTE | 2023-10-19 08:53 | WPDCDIQUERY2 ---
CDI Query Clarification Request Urine culture from 10/15/23 grew Enterobacter Cloacae/ asburia Patient discharged on Bactrim DS 1 tab Q 12hrs on 10/18/23. Chronic indwelling Mariee catheter documented Clarification request - UTI has been documented, chronic indwelling mariee catheter documented. Please clarify if UTI is: due to/associated with chronic indwelling mariee catheter not due to/associated with chronic indwelling mariee catheter unable to determine
== END 2023-10-19 02:21 | disposition home or self-care (01) ==
PROVIDERS: Emergency Provider Physician Assistant; PCP Family Medicine
DX: T83.098A Other mechanical complication of other urinary catheter, initial encounter (principal); T83.511A Infection and inflammatory reaction due to indwelling urethral catheter, initial encounter; N40.0 Benign prostatic hyperplasia without lower urinary tract symptoms; I51.89 Other ill-defined heart diseases; E78.2 Mixed hyperlipidemia; E11.43 Type 2 diabetes mellitus with diabetic autonomic (poly)neuropathy; M19.90 Unspecified osteoarthritis, unspecified site; D64.9 Anemia, unspecified; Z87.891 Personal history of nicotine dependence; Z90.49 Acquired absence of other specified parts of digestive tract; Z79.82 Long term (current) use of aspirin; Z79.84 Long term (current) use of oral hypoglycemic drugs; Y84.6 Urinary catheterization as the cause of abnormal reaction of the patient, or of later complication, without mention of misadventure at the time of the procedure
CPT/HCPCS: 51702; 81001; 87086; 99283

== ENCOUNTER 2023-10-19 18:15 | Emergency (ER) | payer MEDICARE, SELFPAY ==
[2023-10-19 18:29] VITALS: BP 120/61; PULSE 66; RESP 18; TEMP 36.9; O2SAT 100
--- NOTE | 2023-10-19 19:46 | ED.MALEGU ---
HPI - Male Genitourinary General Chief complaint: Urogenital-Male Stated complaint: non draining mariee Time Seen by Provider: 10/19/23 18:29 Source: patient and family Mode of arrival: wheelchair Limitations: no limitations History of Present Illness HPI Narrative: 83-year-old with a history of BPH, type 2 diabetes, diastolic CHF was here last night as he was unable to urinate. Patient had a Mariee catheter placed however since this morning it is not be draining. Denies any fever chills. mentioned is on a fluid restriction. Associated symptoms: Reports denies other symptoms Related Data Home Medications Medication Instructions Recorded Confirmed cetirizine 10 mg tablet (Zyrtec) 10 mg PO DAILY 07/04/19 10/15/23 multivitamin (Multiple Vitamins 1 tablet PO DAILY 02/29/20 10/15/23 tablet) finasteride 5 mg tablet 5 mg PO DAILY 02/26/22 10/15/23 mecobalamin (vitamin B12) 1,000 1,000 mcg PO HS 05/18/22 10/15/23 mcg chewable tablet ascorbate calcium (vitamin C) 500 500 mg PO DAILY 04/15/23 10/15/23 mg tablet aspirin 81 mg tablet,delayed 192 mg PO QAM 10/15/23 10/15/23 release ibuprofen 600 mg tablet 600 mg PO TID PRN Pain, Mild 10/15/23 10/15/23 sertraline 50 mg tablet 50 mg PO DAILY 10/16/23 10/16/23 Allergies Allergy/AdvReac Type Severity Reaction Status Date / Time adhesive tape Allergy Mild Rash Verified 10/15/23 22:24 neomycin Allergy Mild Rash Verified 10/15/23 22:24 Sulfa (Sulfonamide AdvReac Intermediate Nausea Verified 10/15/23 22:24 Antibiotics) Review of Systems Review of Systems: All systems reviewed & are unremarkable except as noted in HPI and below Constitutional: Constitutional: Reports no additional constitutional complaints Eyes: Eyes: Reports no additional eye complaints ENT: Reports system reviewed and no additional complaints, except as documented Cardiovascular: Cardiovascular: Reports no additional cardiovascular complaints Respiratory: Respiratory: Reports no additional respiratory complaints Gastrointestinal: Gastrointestinal: Reports no additional gastrointestinal complaints Genitourinary: Genitourinary: Reports as per HPI Musculoskeletal: Musculoskeletal: Reports no additional musculoskeletal complaints Neurologic: Reports system reviewed and no additional complaints, except as documented PMF Past Medical History Medical History Arterial vascular disease Arthritis Benign prostatic hyperplasia Chronic anemia Chronic indwelling Mariee catheter Diastolic dysfunction Echocardiogram July 2023: EF 55-60% grade 1 diastolic dysfunction, mild concentric left ventricular wall thickness, normal valves Essential (primary) hypertension Fracture of ankle with nonunion Mixed hyperlipidemia Peripheral autonomic neuropathy due to diabetes mellitus Seasonal allergies Traumatic arthritis of right ankle Trimalleolar fracture Type 2 diabetes mellitus Vision abnormalities Wears glasses Surgical History Surgical History History of prostate biopsy Hx of cholecystectomy Status post open reduction with internal fixation (ORIF) of fracture of ankle Family History Family History Father Diabetes mellitus Acute myocardial infarction Hypertension Cerebrovascular accident Mother Family history of malignant neoplasm Social History Social History Social History: Surrogate medical decision maker: Fani Delacruz, spouse. Code status: Full code. Smoking packs per day: 1 Smoking cigarettes per day: 20.0 Years smoked: 14 Smoking pack-years: 14.00 Smoking status: Former smoker Tobacco type: cigarettes Alcohol intake: never Alcohol use details: FEW DRINKS/YEAR Substance use: never Substance use type: does not use Do You Feel Safe in your Home?:
[2023-10-19 20:02] VITALS: BP 122/68; PULSE 62; RESP 14; O2SAT 98
== END 2023-10-19 20:03 | disposition home or self-care (01) ==
PROVIDERS: Emergency Provider Family Medicine; PCP Family Medicine
DX: T83.098A Other mechanical complication of other urinary catheter, initial encounter (principal); N40.0 Benign prostatic hyperplasia without lower urinary tract symptoms; I50.30 Unspecified diastolic (congestive) heart failure; I11.0 Hypertensive heart disease with heart failure; M19.90 Unspecified osteoarthritis, unspecified site; D64.9 Anemia, unspecified; E78.2 Mixed hyperlipidemia; E11.43 Type 2 diabetes mellitus with diabetic autonomic (poly)neuropathy; Z90.49 Acquired absence of other specified parts of digestive tract; Y84.6 Urinary catheterization as the cause of abnormal reaction of the patient, or of later complication, without mention of misadventure at the time of the procedure; Z79.82 Long term (current) use of aspirin; Z79.84 Long term (current) use of oral hypoglycemic drugs
CPT/HCPCS: 51702; 81001; 87086; 99283

== ENCOUNTER 2023-10-23 08:00 | Emergency (ER) | payer MEDICARE, SELFPAY ==
[2023-10-23 08:03] VITALS: BP 148/66; PULSE 60; RESP 18; O2SAT 100
--- NOTE | 2023-10-23 08:13 | ED.GENADULT ---
HPI - General Adult General Chief complaint: Urogenital-Male Stated complaint: mariee cath prob Time Seen by Provider: 10/23/23 08:04 History of Present Illness HPI narrative: 83-year-old male presenting to the emergency department for evaluation for suspected blood in his Mariee catheter bag this morning. Patient states he had approximately 800 mL of urine in his Mariee catheter bag that did have some clots and was blood tinged. Patient drained the bag and present to the emergency department for evaluation. Patient reports he has had multiple issues with his Mariee catheter being clogged. Patient has had close follow-up with Urology. Patient is set up with Urology to have an additional procedure on the prostate and does have follow-up with Urology on Tuesday. Emergency department patient does complain of lower abdominal pain but states this is not acute lower abdominal pain. Related Data Home Medications Medication Instructions Recorded Confirmed cetirizine 10 mg tablet (Zyrtec) 10 mg PO DAILY 07/04/19 10/15/23 multivitamin (Multiple Vitamins 1 tablet PO DAILY 02/29/20 10/15/23 tablet) finasteride 5 mg tablet 5 mg PO DAILY 02/26/22 10/15/23 mecobalamin (vitamin B12) 1,000 1,000 mcg PO HS 05/18/22 10/15/23 mcg chewable tablet ascorbate calcium (vitamin C) 500 500 mg PO DAILY 04/15/23 10/15/23 mg tablet aspirin 81 mg tablet,delayed 192 mg PO QAM 10/15/23 10/15/23 release ibuprofen 600 mg tablet 600 mg PO TID PRN Pain, Mild 10/15/23 10/15/23 sertraline 50 mg tablet 50 mg PO DAILY 10/16/23 10/16/23 Allergies Allergy/AdvReac Type Severity Reaction Status Date / Time adhesive tape Allergy Mild Rash Verified 10/15/23 22:24 neomycin Allergy Mild Rash Verified 10/15/23 22:24 Sulfa (Sulfonamide AdvReac Intermediate Nausea Verified 10/15/23 22:24 Antibiotics) Review of Systems Review of Systems: All systems reviewed & are unremarkable except as noted in HPI and below PMFSH Past Medical History Medical History Arterial vascular disease Arthritis Benign prostatic hyperplasia Chronic anemia Chronic indwelling Mariee catheter Diastolic dysfunction Echocardiogram July 2023: EF 55-60% grade 1 diastolic dysfunction, mild concentric left ventricular wall thickness, normal valves Essential (primary) hypertension Fracture of ankle with nonunion Mixed hyperlipidemia Peripheral autonomic neuropathy due to diabetes mellitus Seasonal allergies Traumatic arthritis of right ankle Trimalleolar fracture Type 2 diabetes mellitus Vision abnormalities Wears glasses Surgical History Surgical History History of prostate biopsy Hx of cholecystectomy Status post open reduction with internal fixation (ORIF) of fracture of ankle Family History Family History Father Diabetes mellitus Acute myocardial infarction Hypertension Cerebrovascular accident Mother Family history of malignant neoplasm Social History Social History Social History: Surrogate medical decision maker: Fani Delacruz, spouse. Code status: Full code. Smoking packs per day: 1 Smoking cigarettes per day: 20.0 Years smoked: 14 Smoking pack-years: 14.00 Smoking status: Former smoker Tobacco type: cigarettes Alcohol intake: never Alcohol use details: FEW DRINKS/YEAR Substance use: never Substance use type: does not use Do You Feel Safe in your Home?: Yes Lack of Transportation: No Lack of Food: Never True Current Housing: I Have Housing Concerned About Future Housing: No Difficulty Paying Gas/Electric Bills: No Difficulty Paying for Meds: No Currently Unemployed: No Education: Trade/Vocational Certificate Difficulty w/ Childcare or Family Care: No Living arrangements: with family Occupation/Education:
[2023-10-23 08:36] LABS: Basophils Percent Auto 0.5 % (0.2-1.2); Eosinophils Percent Auto 0.3 % (0-4.4); Hematocrit 33.5 % (42.0-52.0); Hemoglobin 11.6 g/dL (14.0-18.0); Immature Granulocyte Absolute 0.02 K/mm3 (0.00-0.031); Immature Granulocyte Percent A 0.3 % (0-0.5); Lymphocytes Absolute Auto 0.55 K/mm3 (0.9-3.2); Lymphocytes Percent Auto 9.4 % (18.3-44.2); Mean Corpuscular HGB Conc 34.6 g/dl (32-36); Mean Corpuscular Hemoglobin 29.7 pg (26-34); Mean Corpuscular Volume 85.7 fl (80-100); Mean Platelet Volume 8.8 fl (7.4-10.4); Monocytes Absolute Auto 0.3 K/mm3 (0.1-0.6); Monocytes Percent Auto 5.3 % (2.6-8.5); Neutrophils Absolute Auto 4.9 K/mm3 (1.3-6.7); Neutrophils Percent Auto 84.2 % (45.5-73.1); Platelet Count Result 282 k/mm3 (150-375); Red Blood Count 3.91 M/mm3 (4.6-6.20); Red Cell Distribution Width 12.9 % (11.5-14.5); White Blood Count 5.9 K/mm3 (4.5-10.0)
[2023-10-23 08:45] LABS: Alanine Aminotransferase 19 U/L (6-50); Albumin Level 4.3 g/dL (3.5-5.1); Alkaline Phosphatase 86 U/L (38-126); Anion Gap 9 mmol/L (4-12); Aspartate Amino Transferase 24 U/L (17-59); Bilirubin,Total 0.6 mg/dL (0.2-1.3); Blood Urea Nitrogen 13 mg/dL (9-20); Calcium 9.1 mg/dL (8.4-10.2); Carbon Dioxide 21 mmol/L (22-30); Chloride 94 mmol/L (98-107); Estimated CRCL calculation 60 ml/min; Estimated Glomerular Filt Rate > 60; Glucose 149 mg/dL (65-110); Potassium 4.7 mmol/L (3.4-5.0); Sodium 124 mmol/L (137-145)
[2023-10-23 08:50] LABS: Appearance Urine Turbid (Clear); Bacteria Urine None Seen /hpf; Bilirubin Urine 1+ (Negative); Blood Urine 3+ (Negative); Color Urine Dark Yellow (Yellow); Glucose Urine UA Negative (Negative); Ketones Urine Trace mg/dL (Negative); Leukocyte Esterase Ur 2+ LEU/UL (Negative); Need Manual Microscopic Reviewed; Nitrate Urine Negative (Negative); Protein Urine 1+ mg/dL (Negative); RBC Urine >100 /hpf (0-2); Specific Grav Ur 1.023 (1.001-1.035); Squamous Epithelial Cell Urine None Seen /hpf (Few); WBC Urine 21-50 /hpf (0-3); pH Urine 6.5 (5.0-9.0)
[2023-10-23 08:51] LABS: Add Urine Microscopic? YES
[2023-10-23 09:00] LABS: INR 0.9; Prothrombin Time 12.7 Seconds (11.1-14.7)
[2023-10-23 09:41] VITALS: BP 112/55; PULSE 56; RESP 18; O2SAT 99
--- NOTE | 2023-11-16 09:27 | PC.NURSE ---
LATE ENTRY This note is being entered to document information to the patient's record. The following information was omitted on [10/23/2023], by [Glenn]. Verbal order read-back, replaced mariee catheter. Mariee catheter replaced per this RN on 10/23/2023.
== END 2023-10-23 09:43 | disposition home or self-care (01) ==
PROVIDERS: Emergency Provider Emergency Medicine; PCP Family Medicine
DX: T83.098A Other mechanical complication of other urinary catheter, initial encounter (principal); R31.9 Hematuria, unspecified; I51.89 Other ill-defined heart diseases; I70.90 Unspecified atherosclerosis; E78.2 Mixed hyperlipidemia; N40.0 Benign prostatic hyperplasia without lower urinary tract symptoms; E11.43 Type 2 diabetes mellitus with diabetic autonomic (poly)neuropathy; M19.90 Unspecified osteoarthritis, unspecified site; D64.9 Anemia, unspecified; Z87.891 Personal history of nicotine dependence; Z90.49 Acquired absence of other specified parts of digestive tract; Z79.82 Long term (current) use of aspirin; Z79.84 Long term (current) use of oral hypoglycemic drugs; Y84.6 Urinary catheterization as the cause of abnormal reaction of the patient, or of later complication, without mention of misadventure at the time of the procedure
CPT/HCPCS: 36415; 51702; 80053; 81001; 85025; 85610; 85730; 87086; 99283

== ENCOUNTER 2023-10-28 10:22 | Outpatient (CLI) | payer MEDICARE, SELFPAY ==
[2023-10-28 18:45] LABS: Anion Gap 9 mmol/L (4-12); Blood Urea Nitrogen 14 mg/dL (9-20); Calcium 8.9 mg/dL (8.4-10.2); Carbon Dioxide 25 mmol/L (22-30); Chloride 98 mmol/L (98-107); Estimated Glomerular Filt Rate > 60; Glucose 165 mg/dL (65-110); Potassium 4.4 mmol/L (3.4-5.0); Sodium 132 mmol/L (137-145)
== END 2023-10-28 10:23 | disposition home or self-care (01) ==
LOC: ANHGOSHLAB 10:23
PROVIDERS: PCP Family Medicine; Visit Provider Family Medicine
DX: E22.2 Syndrome of inappropriate secretion of antidiuretic hormone (principal)
CPT/HCPCS: 36415; 80048

== ENCOUNTER 2023-11-09 10:21 | Outpatient (CLI) | payer MEDICARE, SELFPAY ==
[2023-11-09 20:21] LABS: Anion Gap 6 mmol/L (4-12); Blood Urea Nitrogen 12 mg/dL (9-20); Calcium 8.7 mg/dL (8.4-10.2); Carbon Dioxide 29 mmol/L (22-30); Chloride 100 mmol/L (98-107); Estimated Glomerular Filt Rate > 60; Glucose 96 mg/dL (65-110); Sodium 135 mmol/L (137-145)
[2023-11-09 20:32] LABS: Albumin Level 3.9 g/dL (3.5-5.1); Anion Gap 7 mmol/L (4-12); Blood Urea Nitrogen 12 mg/dL (9-20); Calcium 8.5 mg/dL (8.4-10.2); Carbon Dioxide 29 mmol/L (22-30); Chloride 99 mmol/L (98-107); Estimated Glomerular Filt Rate > 60; Glucose 93 mg/dL (65-110); Phosphorus 3.5 mg/dL (2.5-4.5); Sodium 135 mmol/L (137-145)
== END 2023-11-09 10:22 | disposition home or self-care (01) ==
LOC: ANHGOSHLAB 10:24
PROVIDERS: PCP Family Medicine
DX: E11.59 Type 2 diabetes mellitus with other circulatory complications (principal); R33.9 Retention of urine, unspecified; E22.2 Syndrome of inappropriate secretion of antidiuretic hormone; I15.2 Hypertension secondary to endocrine disorders
CPT/HCPCS: 36415; 80048; 80069

== ENCOUNTER 2023-11-25 22:50 | Emergency (ER) | payer MEDICARE, SELFPAY ==
[2023-11-25 22:59] VITALS: BP 168/67; PULSE 64; RESP 17; TEMP 36.6; O2SAT 98
--- NOTE | 2023-11-25 23:20 | PC.NURSE ---
This RN attempted to irrigate mariee catheter without successful urine return.
--- NOTE | 2023-11-25 23:31 | ED.MALEGU ---
HPI - Male Genitourinary General Chief complaint: Urogenital-Male Stated complaint: cath problems Time Seen by Provider: 11/25/23 22:53 History of Present Illness HPI Narrative: patient is an 83-year-old male who presents ER with urinary retention. He has a chronic indwelling Ahumada. He thinks became clogged over last few hours as he has had no discharge. Mild lower did abdominal discomfort. No fevers or chills or sweats. Has not noticed any recent blood in his urine. His catheter was changed earlier in the week. Related Data Home Medications Medication Instructions Recorded Confirmed cetirizine 10 mg tablet (Zyrtec) 10 mg PO DAILY 07/04/19 10/15/23 multivitamin (Multiple Vitamins 1 tablet PO DAILY 02/29/20 10/15/23 tablet) finasteride 5 mg tablet 5 mg PO DAILY 02/26/22 10/15/23 mecobalamin (vitamin B12) 1,000 1,000 mcg PO HS 05/18/22 10/15/23 mcg chewable tablet ascorbate calcium (vitamin C) 500 500 mg PO DAILY 04/15/23 10/15/23 mg tablet ibuprofen 600 mg tablet 600 mg PO TID PRN Pain, Mild 10/15/23 10/15/23 ferrous sulfate 325 mg (65 mg 325 mg PO DAILY 11/03/23 iron) tablet polyethylene glycol 3350 17 17 g PO DAILY 11/03/23 gram/dose oral powder (Miralax) vibegron 75 mg tablet (Gemtesa) 75 mg PO DAILY 11/03/23 Allergies Allergy/AdvReac Type Severity Reaction Status Date / Time adhesive tape Allergy Mild Rash Verified 11/03/23 14:01 neomycin Allergy Mild Rash Verified 11/03/23 14:01 Sulfa (Sulfonamide AdvReac Intermediate Nausea Verified 11/03/23 14:01 Antibiotics) Review of Systems Constitutional: Constitutional: Reports no additional constitutional complaints Gastrointestinal: Gastrointestinal: Reports abdominal pain, Denies nausea and Denies vomiting Genitourinary: Genitourinary: Reports oliguria, Denies testicular pain and Denies urinary frequency Musculoskeletal: Musculoskeletal: Reports no additional musculoskeletal complaints PMFSH Past Medical History Medical History Arterial vascular disease Arthritis Benign prostatic hyperplasia Chronic anemia Chronic indwelling Ahumada catheter Diastolic dysfunction Echocardiogram July 2023: EF 55-60% grade 1 diastolic dysfunction, mild concentric left ventricular wall thickness, normal valves Essential (primary) hypertension Fracture of ankle with nonunion Mixed hyperlipidemia Peripheral autonomic neuropathy due to diabetes mellitus Seasonal allergies Traumatic arthritis of right ankle Trimalleolar fracture Type 2 diabetes mellitus Vision abnormalities Wears glasses Surgical History Surgical History History of prostate biopsy Hx of cholecystectomy Status post open reduction with internal fixation (ORIF) of fracture of ankle Family History Family History Father Diabetes mellitus Acute myocardial infarction Hypertension Cerebrovascular accident Mother Family history of malignant neoplasm Social History Social History Social History: Surrogate medical decision maker: Fani Delacruz, spouse. Code status: Full code. Smoking packs per day: 1 Smoking cigarettes per day: 20.0 Years smoked: 14 Smoking pack-years: 14.00 Smoking status: Former smoker Tobacco type: cigarettes Alcohol intake: never Alcohol use details: FEW DRINKS/YEAR Substance use: never Substance use type: does not use Do You Feel Safe in your Home?: Yes Lack of Transportation: No Lack of Food: Never True Current Housing: I Have Housing Concerned About Future Housing: No Difficulty Paying Gas/Electric Bills: No Difficulty Paying for Meds: No Currently Unemployed: No Education: Trade/Vocational Certificate Difficulty w/ Childcare or Family Care: No Living arrangements: with family Occupation
[2023-11-26 01:10] VITALS: BP 126/63; PULSE 58; RESP 20; O2SAT 98
== END 2023-11-26 01:10 | disposition home or self-care (01) ==
PROVIDERS: Emergency Provider Emergency Medicine; PCP Family Medicine
DX: T83.098A Other mechanical complication of other urinary catheter, initial encounter (principal); M19.90 Unspecified osteoarthritis, unspecified site; I10 Essential (primary) hypertension; E78.5 Hyperlipidemia, unspecified; E11.9 Type 2 diabetes mellitus without complications
CPT/HCPCS: 51702; 99283

== ENCOUNTER 2023-11-28 14:58 | Emergency (ER) | payer MEDICARE, SELFPAY ==
[2023-11-28 15:09] VITALS: BP 115/72; PULSE 72; RESP 16; TEMP 36.7; O2SAT 100
--- NOTE | 2023-11-28 15:25 | ED.URI ---
HPI - URI/Sore Throat General Chief Complaint: Upper Respiratory Infection Stated Complaint: SORE THROAT/EARACHE Time Seen by Provider: 11/28/23 15:18 Source: patient and RN notes reviewed Mode of arrival: ambulatory Limitations: no limitations History of Present Illness HPI Narrative: Patient presents today complaining of a 2 day history of sore throat radiating to the left ear with nasal congestion. Denies rhinorrhea, fever, cough. Currently rates his pain 5/10 and has been using cough drops with mild relief. Also states he uses some nasal spray on a daily basis which does help. Related Data Home Medications Medication Instructions Recorded Confirmed cetirizine 10 mg tablet (Zyrtec) 10 mg PO DAILY 07/04/19 10/15/23 multivitamin (Multiple Vitamins 1 tablet PO DAILY 02/29/20 11/28/23 tablet) finasteride 5 mg tablet 5 mg PO DAILY 02/26/22 11/28/23 mecobalamin (vitamin B12) 1,000 1,000 mcg PO HS 05/18/22 11/28/23 mcg chewable tablet ascorbate calcium (vitamin C) 500 500 mg PO DAILY 04/15/23 11/28/23 mg tablet ibuprofen 600 mg tablet 600 mg PO TID PRN Pain, Mild 10/15/23 11/28/23 ferrous sulfate 325 mg (65 mg 325 mg PO DAILY 11/03/23 11/28/23 iron) tablet polyethylene glycol 3350 17 17 g PO DAILY 11/03/23 11/28/23 gram/dose oral powder (Miralax) vibegron 75 mg tablet (Gemtesa) 75 mg PO DAILY 11/03/23 11/28/23 Allergies Allergy/AdvReac Type Severity Reaction Status Date / Time adhesive tape Allergy Mild Rash Verified 11/28/23 15:14 neomycin Allergy Mild Rash Verified 11/28/23 15:14 Sulfa (Sulfonamide AdvReac Intermediate Nausea Verified 11/28/23 15:14 Antibiotics) Review of Systems Review of Systems: CONSTITUTIONAL: Denies body aches, fever, chills, or sweats. EYES: Denies visual changes, redness, or discharge. ENT: Denies rhinorrhea. + nasal congestion, sore throat, left ear pain CARDIOVASCULAR: Denies chest pain, palpitations, or edema. RESPIRATORY: Denies cough or dyspnea. GASTROINTESTINAL: Denies abdominal pain, nausea, vomiting, or diarrhea. GENITOURINARY: Denies dysuria or hematuria. SKIN: Denies rash, itching, or wounds. MUSCULOSKELETAL: Denies back pain, joint pain, or myalgia. NEUROLOGIC: Denies headache, numbness, tingling, or weakness. PSYCH: Denies depression or anxiety. [facility] Past Medical History Medical History Arterial vascular disease Arthritis Benign prostatic hyperplasia Chronic anemia Chronic indwelling Ahumada catheter Diastolic dysfunction Echocardiogram July 2023: EF 55-60% grade 1 diastolic dysfunction, mild concentric left ventricular wall thickness, normal valves Essential (primary) hypertension Fracture of ankle with nonunion Mixed hyperlipidemia Peripheral autonomic neuropathy due to diabetes mellitus Seasonal allergies Traumatic arthritis of right ankle Trimalleolar fracture Type 2 diabetes mellitus Vision abnormalities Wears glasses Surgical History Surgical History History of prostate biopsy Hx of cholecystectomy Status post open reduction with internal fixation (ORIF) of fracture of ankle Family History Family History Father Diabetes mellitus Acute myocardial infarction Hypertension Cerebrovascular accident Mother Family history of malignant neoplasm Social History Social History Social History: Surrogate medical decision maker: Fani Delacruz, spouse. Code status: Full code. Smoking packs per day: 1 Smoking cigarettes per day: 20.0 Years smoked: 14 Smoking pack-years: 14.00 Smoking status: Former smoker Tobacco type: cigarettes Alcohol intake: never Alcohol use details: FEW DRINKS/YEAR Substance use: never Substance use type: does not use Do You Feel Safe in your Home?: eBthel
== END 2023-11-28 15:33 | disposition home or self-care (01) ==
PROVIDERS: Emergency Provider Nurse Practitioner; PCP Family Medicine
DX: H61.23 Impacted cerumen, bilateral (principal); J06.9 Acute upper respiratory infection, unspecified; Z87.891 Personal history of nicotine dependence; M19.90 Unspecified osteoarthritis, unspecified site; N40.0 Benign prostatic hyperplasia without lower urinary tract symptoms; I10 Essential (primary) hypertension; E78.2 Mixed hyperlipidemia; E11.43 Type 2 diabetes mellitus with diabetic autonomic (poly)neuropathy; I77.9 Disorder of arteries and arterioles, unspecified
CPT/HCPCS: 87081; 87880; 99213; G0463

== ENCOUNTER 2023-12-13 14:24 | Emergency (ER) | payer MEDICARE, SELFPAY ==
[2023-12-13 14:38] VITALS: BP 133/72; PULSE 88; RESP 16; TEMP 36.4; O2SAT 98
--- NOTE | 2023-12-13 15:00 | ED.MALEGU ---
HPI - Male Genitourinary General Chief complaint: Urogenital-Male Stated complaint: WEAKNESS S/P PROCEDURE Source: patient and RN notes reviewed Mode of arrival: ambulatory Limitations: no limitations History of Present Illness HPI Narrative: 83-year-old male presented for complaint of fatigue and ?pain in the penis? over the past few days following a prostatic artery embolization 4 days ago. He was advised by the urologist to go for lab work. Has a mariee catheter in place and denies difficulty draining urine, but says he feels pressure at times for about 30 seconds. He denies headache, chest pain, heart racing, nausea, vomiting, abdominal pain, hematuria, or fever. Patient states he has a appointment with his PCP tomorrow. Hx hyponatremia, DM, aortic stenosis. Related Data Home Medications Medication Instructions Recorded Confirmed cetirizine 10 mg tablet (Zyrtec) 10 mg PO DAILY 07/04/19 10/15/23 multivitamin (Multiple Vitamins 1 tablet PO DAILY 02/29/20 11/28/23 tablet) finasteride 5 mg tablet 5 mg PO DAILY 02/26/22 11/28/23 mecobalamin (vitamin B12) 1,000 1,000 mcg PO HS 05/18/22 11/28/23 mcg chewable tablet ascorbate calcium (vitamin C) 500 500 mg PO DAILY 04/15/23 11/28/23 mg tablet ibuprofen 600 mg tablet 600 mg PO TID PRN Pain, Mild 10/15/23 11/28/23 ferrous sulfate 325 mg (65 mg 325 mg PO DAILY 11/03/23 11/28/23 iron) tablet polyethylene glycol 3350 17 17 g PO DAILY 11/03/23 11/28/23 gram/dose oral powder (Miralax) vibegron 75 mg tablet (Gemtesa) 75 mg PO DAILY 11/03/23 11/28/23 Allergies Allergy/AdvReac Type Severity Reaction Status Date / Time adhesive tape Allergy Mild Rash Verified 11/28/23 15:14 neomycin Allergy Mild Rash Verified 11/28/23 15:14 Sulfa (Sulfonamide AdvReac Intermediate Nausea Verified 11/28/23 15:14 Antibiotics) Review of Systems Review of Systems: CONSTITUTIONAL: reports fatigue. Denies body aches, fever, chills, or sweats. CARDIOVASCULAR: Denies chest pain, palpitations, or edema. RESPIRATORY: Denies cough or dyspnea. GASTROINTESTINAL: Denies abdominal pain, nausea, vomiting, or diarrhea. GENITOURINARY: denies dysuria, frequency, urgency, hematuria, flank pain SKIN: Denies rash, itching, or wounds. MUSCULOSKELETAL: Denies back pain or myalgia. [facility] Past Medical History Medical History Arterial vascular disease Arthritis Benign prostatic hyperplasia Chronic anemia Chronic indwelling Mariee catheter Diastolic dysfunction Echocardiogram July 2023: EF 55-60% grade 1 diastolic dysfunction, mild concentric left ventricular wall thickness, normal valves Essential (primary) hypertension Fracture of ankle with nonunion Mixed hyperlipidemia Peripheral autonomic neuropathy due to diabetes mellitus Seasonal allergies Traumatic arthritis of right ankle Trimalleolar fracture Type 2 diabetes mellitus Vision abnormalities Wears glasses Surgical History Surgical History History of prostate biopsy Hx of cholecystectomy Status post open reduction with internal fixation (ORIF) of fracture of ankle Family History Family History Father Diabetes mellitus Acute myocardial infarction Hypertension Cerebrovascular accident Mother Family history of malignant neoplasm Social History Social History Social History: Surrogate medical decision maker: Fani Gower, spouse. Code status: Full code. Smoking packs per day: 1 Smoking cigarettes per day: 20.0 Years smoked: 14 Smoking pack-years: 14.00 Smoking status: Former smoker Tobacco type: cigarettes Alcohol intake: never Alcohol use details: FEW DRINKS/YEAR Substance use: never Substance use type: does not use Do You Feel Safe in your Home?: Yes Lack of Transportation:
== END 2023-12-13 15:03 | disposition left against medical advice (07) ==
PROVIDERS: Emergency Provider Nurse Practitioner Family; PCP Family Medicine
DX: R53.83 Other fatigue (principal); N40.0 Benign prostatic hyperplasia without lower urinary tract symptoms; I10 Essential (primary) hypertension; E78.2 Mixed hyperlipidemia; E11.43 Type 2 diabetes mellitus with diabetic autonomic (poly)neuropathy; I35.0 Nonrheumatic aortic (valve) stenosis
CPT/HCPCS: 99211; G0463

== ENCOUNTER 2023-12-14 13:57 | Outpatient (CLI) | payer MEDICARE, SELFPAY ==
[2023-12-14 19:32] LABS: Albumin Level 3.9 g/dL (3.5-5.1); Anion Gap 10 mmol/L (4-12); Blood Urea Nitrogen 16 mg/dL (9-20); Calcium 8.5 mg/dL (8.4-10.2); Carbon Dioxide 28 mmol/L (22-30); Chloride 97 mmol/L (98-107); Estimated Glomerular Filt Rate > 60; Glucose 329 mg/dL (65-110); Phosphorus 3.1 mg/dL (2.5-4.5); Potassium 4.3 mmol/L (3.4-5.0); Sodium 135 mmol/L (137-145)
== END 2023-12-14 13:58 | disposition home or self-care (01) ==
LOC: ANHGOSHLAB 14:00
PROVIDERS: PCP Family Medicine
DX: E87.1 Hypo-osmolality and hyponatremia (principal)
CPT/HCPCS: 36415; 80069

== ENCOUNTER 2023-12-16 08:22 | Outpatient (CLI) | payer MEDICARE, SELFPAY ==
[2023-12-16 12:57] LABS: Alanine Aminotransferase 16 U/L (6-50); Albumin Level 4.1 g/dL (3.5-5.1); Alkaline Phosphatase 115 U/L (38-126); Anion Gap 9 mmol/L (4-12); Aspartate Amino Transferase 26 U/L (17-59); Bilirubin,Total 0.8 mg/dL (0.2-1.3); Blood Urea Nitrogen 13 mg/dL (9-20); Calcium 8.7 mg/dL (8.4-10.2); Carbon Dioxide 31 mmol/L (22-30); Chloride 96 mmol/L (98-107); Estimated Glomerular Filt Rate > 60; Glucose 146 mg/dL (65-110); Potassium 4.1 mmol/L (3.4-5.0); Sodium 136 mmol/L (137-145)
[2023-12-16 13:14] LABS: Hemoglobin A1C 6.5 % (<5.7)
== END 2023-12-16 08:23 | disposition home or self-care (01) ==
LOC: ANHGOSHLAB 08:25
PROVIDERS: PCP Family Medicine; Visit Provider Family Medicine
DX: E11.9 Type 2 diabetes mellitus without complications (principal)
CPT/HCPCS: 36415; 80053; 83036

== ENCOUNTER 2024-01-08 13:23 | Emergency (ER) | payer MEDICARE, SELFPAY ==
--- NOTE | ~2024-01-08 | CT_ITS ---
EXAMINATION: CT abdomen pelvis w con DATE: 01/08/2024 15:29 INDICATION: Abdominal pain TECHNIQUE: Computed tomography (CT) of the abdomen and pelvis was performed with 100 mL Omnipaque-350 intravenous contrast. Automated exposure control and iterative reconstruction technique were employe d. The dose-length product was 530.77 mGy-cm. COMPARISON: CT dated 10/15/2023 and MRI dated 02/11/2022 FINDINGS: Mild dependent atelectasis in bilateral lower lobes. Heart size is normal. Atherosclerotic coronary a rtery calcific lesion. Aortic valve calcification. No pericardial or pleural effusion. Small sliding- type hiatal hernia. Cholecystectomy clips the gallbladder fossa. Spleen, pancreas, bilateral adrenal glands are normal. 2 cm soft tissue density proteinaceous/hemorrhagic cyst at the left kidney which i s without enhancement on MRI dated 02/11/2022. 5 mm macroscopic fat attenuation angiomyolipomas at the lower pole of the right kidney. There is mild colonic diverticulosis with a sigmoid predominance. T here is no adjacent inflammatory change to suggest diverticulitis. Small bowel and appendix are paul l. Prominent diffuse wall thickening of the bladder with stranding in the immediately adjacent fat co nsistent with cystitis. Ahumada catheter in the bladder. Marked prostatomegaly measuring 7.9 x 5.8 cm. Enlargement of the prostate appears asymmetric, more prominent on the left side of the Ahumada catheter . No free intraperitoneal gas or fluid. No pathologically enlarged abdominal or pelvic lymphadenopath y. 16.2 x 11.4 x 2.7 cm lenticular lipoma within the superficial anterolateral left abdominal wall mu sculature. Mild to moderate thoracolumbar spondylosis. IMPRESSION: 1. Prominent wall thickening the bladder with some surrounding from trace stranding consistent with c ystitis. Correlate to urinalysis. 2. Marked prostatomegaly with asymmetric left-sided enlargement. Consider correlation with PSA level. 3. Small sliding-type hiatal hernia. Reviewed, dictated and finalized at location A. IMPRESSION: 1. Prominent wall thickening the bladder with some surrounding from trace stran ding consistent with cystitis. Correlate to urinalysis. 2. Marked prostatomegaly with asymmetric left-sided enlargement. Consider corre lation with PSA level. 3. Small sliding-type hiatal hernia.
[2024-01-08 13:28] VITALS: BP 142/69; PULSE 69; RESP 18; TEMP 36.4; O2SAT 100
--- NOTE | 2024-01-08 14:23 | ED.GENADULT ---
HPI - General Adult General Chief complaint: Urogenital-Male Stated complaint: mariee catheter not draining Time Seen by Provider: 01/08/24 14:05 History of Present Illness HPI narrative: 83-year-old male presents to the emergency department for evaluation for Mariee catheter issue and abdominal pain. Patient does have a indwelling Mariee catheter and frequently has issues with the full the clogging. Patient was able to better luck with the Mariee catheter working as he got his constipation resolved. Unfortunately patient did have recurrent issues constipation this morning. Patient states he did take his MiraLax, patient was bearing down for bowel movement and patient states since 9:30 this morning his Mariee catheter has not drained. Patient presents to the emergency department complaining of increased urinary urgency. Related Data Home Medications Medication Instructions Recorded Confirmed cetirizine 10 mg tablet (Zyrtec) 10 mg PO DAILY 07/04/19 10/15/23 multivitamin (Multiple Vitamins 1 tablet PO DAILY 02/29/20 11/28/23 tablet) finasteride 5 mg tablet 5 mg PO DAILY 02/26/22 11/28/23 mecobalamin (vitamin B12) 1,000 1,000 mcg PO HS 05/18/22 11/28/23 mcg chewable tablet ascorbate calcium (vitamin C) 500 500 mg PO DAILY 04/15/23 11/28/23 mg tablet ibuprofen 600 mg tablet 600 mg PO TID PRN Pain, Mild 10/15/23 11/28/23 ferrous sulfate 325 mg (65 mg 325 mg PO DAILY 11/03/23 11/28/23 iron) tablet polyethylene glycol 3350 17 17 g PO DAILY 11/03/23 11/28/23 gram/dose oral powder (Miralax) vibegron 75 mg tablet (Gemtesa) 75 mg PO DAILY 11/03/23 11/28/23 Allergies Allergy/AdvReac Type Severity Reaction Status Date / Time adhesive tape Allergy Mild Rash Verified 12/14/23 13:13 neomycin Allergy Mild Rash Verified 12/14/23 13:13 hydrochlorothiazide AdvReac Severe hyponatremi Verified 12/23/23 08:13 a Sulfa (Sulfonamide AdvReac Intermediate Nausea Verified 12/14/23 13:13 Antibiotics) Review of Systems Review of Systems: All systems reviewed & are unremarkable except as noted in HPI and below PMFSH Past Medical History Medical History (Updated 01/08/24 @ 16:11 by Yasmani Elizabeth MD) Acute hypokalemia Acute metabolic encephalopathy Arterial vascular disease Arthritis Brain TIA Chronic anemia Chronic indwelling Mariee catheter Diastolic dysfunction Echocardiogram July 2023: EF 55-60% grade 1 diastolic dysfunction, mild concentric left ventricular wall thickness, normal valves Essential (primary) hypertension Fracture of ankle with nonunion Hematuria Intramuscular lipoma Mixed hyperlipidemia Peripheral autonomic neuropathy due to diabetes mellitus PVC (premature ventricular contraction) Retained orthopedic hardware Seasonal allergies Transient speech disturbance Traumatic arthritis of right ankle Trimalleolar fracture Urinary tract infection Vision abnormalities Wears glasses Surgical History Surgical History History of prostate biopsy Hx of cholecystectomy Status post open reduction with internal fixation (ORIF) of fracture of ankle Family History Family History Father Diabetes mellitus Acute myocardial infarction Hypertension Cerebrovascular accident Mother Family history of malignant neoplasm Social History Social History Social History: Surrogate medical decision maker: Fani Delacruz, spouse. Code status: Full code. Smoking packs per day: 1 Smoking cigarettes per day: 20.0 Years smoked: 14 Smoking pack-years: 14.00 Smoking status: Former smoker Tobacco type: cigarettes Alcohol intake: never Alcohol use details: FEW DRINKS/YEAR Substance use: never Substance use type: does not use Do You Feel Safe in your Home?: Yes Lack of Transportation: No Lack of Food: Never True Current [facility]
[2024-01-08 14:27] LABS: Basophils Percent Auto 0.4 % (0.2-1.2); Eosinophils Absolute Auto 0.1 K/mm3 (0-0.3); Eosinophils Percent Auto 0.8 % (0-4.4); Hematocrit 35.4 % (42.0-52.0); Hemoglobin 11.6 g/dL (14.0-18.0); Immature Granulocyte Absolute 0.02 K/mm3 (0.00-0.031); Immature Granulocyte Percent A 0.3 % (0-0.5); Lymphocytes Absolute Auto 1.03 K/mm3 (0.9-3.2); Lymphocytes Percent Auto 14.5 % (18.3-44.2); Mean Corpuscular HGB Conc 32.8 g/dl (32-36); Mean Corpuscular Hemoglobin 29.2 pg (26-34); Mean Corpuscular Volume 89.2 fl (80-100); Mean Platelet Volume 9.9 fl (7.4-10.4); Monocytes Absolute Auto 0.5 K/mm3 (0.1-0.6); Monocytes Percent Auto 6.6 % (2.6-8.5); Neutrophils Absolute Auto 5.5 K/mm3 (1.3-6.7); Neutrophils Percent Auto 77.4 % (45.5-73.1); Platelet Count Result 249 k/mm3 (150-375); Red Blood Count 3.97 M/mm3 (4.6-6.20); Red Cell Distribution Width 13.1 % (11.5-14.5); White Blood Count 7.1 K/mm3 (4.5-10.0)
[2024-01-08 14:37] LABS: Alanine Aminotransferase 15 U/L (6-50); Albumin Level 4.4 g/dL (3.5-5.1); Alkaline Phosphatase 122 U/L (38-126); Anion Gap 12 mmol/L (4-12); Aspartate Amino Transferase 22 U/L (17-59); Bilirubin,Total 0.4 mg/dL (0.2-1.3); Blood Urea Nitrogen 12 mg/dL (9-20); Calcium 8.8 mg/dL (8.4-10.2); Carbon Dioxide 26 mmol/L (22-30); Chloride 97 mmol/L (98-107); Estimated CRCL calculation 76 ml/min; Estimated Glomerular Filt Rate > 60; Glucose 157 mg/dL (65-110); Lipase 85 U/L (23-300); Potassium 3.9 mmol/L (3.4-5.0); Sodium 135 mmol/L (137-145)
[2024-01-08 14:40] LABS: INR 0.9; Prothrombin Time 13.1 Seconds (11.1-14.7)
[2024-01-08 14:41] LABS: Appearance Urine Clear (Clear); Bacteria Urine None Seen /hpf; Bilirubin Urine Negative (Negative); Blood Urine Non-Hemolyzed Trace (Negative); Color Urine Yellow (Yellow); Glucose Urine UA Negative (Negative); Ketones Urine Negative (Negative); Leukocyte Esterase Ur 3+ LEU/UL (Negative); Nitrate Urine Negative (Negative); Non Pathogenic Casts 0-2; Protein Urine Trace mg/dL (Negative); Specific Grav Ur 1.007 (1.001-1.035); Squamous Epithelial Cell Urine None Seen /hpf (Few); WBC Urine >100 /hpf (0-3); pH Urine 7.5 (5.0-9.0)
[2024-01-08 14:41] LABS: Partial Thromboplastin Time 27.6 Seconds (22.3-36.8)
--- NOTE | 2024-01-08 14:43 | PC.NURSE ---
mariee cath changed per verbal order be the EDP, new mariee cath draining yellow cloudy urine.
[2024-01-08 14:58] LABS: Add Urine Microscopic? YES
[2024-01-08 15:28] VITALS: BP 142/89; PULSE 69; RESP 16; O2SAT 98
[2024-01-08 16:37] VITALS: BP 159/71; PULSE 70; RESP 16; TEMP 36.6; O2SAT 100
== END 2024-01-08 16:42 | disposition home or self-care (01) ==
PROVIDERS: Emergency Provider Emergency Medicine; PCP Family Medicine
DX: N39.0 Urinary tract infection, site not specified (principal); T83.9XXA Unspecified complication of genitourinary prosthetic device, implant and graft, initial encounter; I10 Essential (primary) hypertension; E78.2 Mixed hyperlipidemia; Z86.73 Personal history of transient ischemic attack (TIA), and cerebral infarction without residual deficits; Z87.891 Personal history of nicotine dependence
CPT/HCPCS: 36415; 74177; 80053; 81001; 83690; 85025; 85610; 85730; 87077; 87086; 87088; 87186; 96365; 99284; J0696; Q9967

== ENCOUNTER 2024-01-12 13:33 | Outpatient (CLI) | payer MEDICARE, SELFPAY ==
[2024-01-12 13:57] LABS: Basophils Absolute Auto 0.1 K/mm3 (0.0-0.1); Basophils Percent Auto 0.6 % (0.2-1.2); Eosinophils Absolute Auto 0.1 K/mm3 (0-0.3); Eosinophils Percent Auto 1.2 % (0-4.4); Hemoglobin 11.2 g/dL (14.0-18.0); Immature Granulocyte Absolute 0.03 K/mm3 (0.00-0.031); Immature Granulocyte Percent A 0.3 % (0-0.5); Lymphocytes Absolute Auto 0.91 K/mm3 (0.9-3.2); Lymphocytes Percent Auto 10.1 % (18.3-44.2); Mean Corpuscular Hemoglobin 29.2 pg (26-34); Mean Corpuscular Volume 91.1 fl (80-100); Mean Platelet Volume 9.2 fl (7.4-10.4); Monocytes Absolute Auto 0.5 K/mm3 (0.1-0.6); Monocytes Percent Auto 5.6 % (2.6-8.5); Neutrophils Absolute Auto 7.4 K/mm3 (1.3-6.7); Neutrophils Percent Auto 82.2 % (45.5-73.1); Platelet Count Result 235 k/mm3 (150-375); Red Blood Count 3.84 M/mm3 (4.6-6.20)
[2024-01-12 16:45] LABS: Iron 35 ug/dL (49-181)
[2024-01-12 16:53] LABS: Anion Gap 9 mmol/L (4-12); Blood Urea Nitrogen 12 mg/dL (9-20); Calcium 8.2 mg/dL (8.4-10.2); Carbon Dioxide 28 mmol/L (22-30); Chloride 99 mmol/L (98-107); Estimated Glomerular Filt Rate > 60; Glucose 135 mg/dL (65-110); Sodium 136 mmol/L (137-145)
[2024-01-12 17:03] LABS: Percent Iron Saturation 13 % (20-50)
[2024-01-12 18:08] LABS: Folic Acid > 20.0 ng/mL (2.76->20)
== END 2024-01-12 13:34 | disposition home or self-care (01) ==
PROVIDERS: PCP Family Medicine; Visit Provider Internal Medicine Hematology & Oncology
DX: D64.9 Anemia, unspecified (principal)
CPT/HCPCS: 36415; 80048; 82607; 82728; 82746; 83540; 83550; 85025

== ENCOUNTER 2024-01-24 11:35 | Emergency (ER) | payer MEDICARE, SELFPAY ==
--- NOTE | 2024-01-24 11:37 | ED.EAR ---
HPI - Ear Problem General Chief complaint: Ear Stated complaint: ear drainage Time Seen by Provider: 01/24/24 11:36 Source: patient Mode of arrival: ambulatory Limitations: no limitations History of Present Illness HPI Narrative: Mr. Delacruz is an 83-year-old female patient presenting to the clinic today with complaints of left ear pain that started this morning. He reports pain started in his throat and radiates into the ear. No fever, chills, or body aches. No other URI symptoms Related Data Home Medications Medication Instructions Recorded Confirmed cetirizine 10 mg tablet (Zyrtec) 10 mg PO DAILY 07/04/19 10/15/23 multivitamin (Multiple Vitamins 1 tablet PO DAILY 02/29/20 11/28/23 tablet) finasteride 5 mg tablet 5 mg PO DAILY 02/26/22 11/28/23 mecobalamin (vitamin B12) 1,000 1,000 mcg PO HS 05/18/22 11/28/23 mcg chewable tablet ascorbate calcium (vitamin C) 500 500 mg PO DAILY 04/15/23 11/28/23 mg tablet ibuprofen 600 mg tablet 600 mg PO TID PRN Pain, Mild 10/15/23 11/28/23 ferrous sulfate 325 mg (65 mg 325 mg PO DAILY 11/03/23 11/28/23 iron) tablet polyethylene glycol 3350 17 17 g PO DAILY 11/03/23 11/28/23 gram/dose oral powder (Miralax) vibegron 75 mg tablet (Gemtesa) 75 mg PO DAILY 11/03/23 11/28/23 Allergies Allergy/AdvReac Type Severity Reaction Status Date / Time adhesive tape Allergy Mild Rash Verified 01/24/24 11:38 neomycin Allergy Mild Rash Verified 01/24/24 11:38 hydrochlorothiazide AdvReac Severe hyponatremi Verified 01/24/24 11:38 a Sulfa (Sulfonamide AdvReac Intermediate Nausea Verified 01/24/24 11:38 Antibiotics) Review of Systems Review of Systems: Pertinent positives per HPI. Patient denies any fever, chills, rash, headache, visual changes, dizziness, cough, runny nose, sore throat, shortness of breath, chest pain, palpitations, nausea, vomiting, diarrhea, constipation, abdominal pain, or any urinary issues. [facility] Past Medical History Medical History Acute hypokalemia Acute metabolic encephalopathy Arterial vascular disease Arthritis Brain TIA Chronic anemia Chronic indwelling Ahumada catheter Diastolic dysfunction Echocardiogram July 2023: EF 55-60% grade 1 diastolic dysfunction, mild concentric left ventricular wall thickness, normal valves Essential (primary) hypertension Fracture of ankle with nonunion Hematuria Intramuscular lipoma Mixed hyperlipidemia Peripheral autonomic neuropathy due to diabetes mellitus PVC (premature ventricular contraction) Retained orthopedic hardware Seasonal allergies Transient speech disturbance Traumatic arthritis of right ankle Trimalleolar fracture Urinary tract infection Vision abnormalities Wears glasses Surgical History Surgical History History of prostate biopsy Hx of cholecystectomy Status post open reduction with internal fixation (ORIF) of fracture of ankle Family History Family History Father Diabetes mellitus Acute myocardial infarction Hypertension Cerebrovascular accident Mother Family history of malignant neoplasm Social History Social History Social History: Surrogate medical decision maker: Fani Delacruz, spouse. Code status: Full code. Smoking packs per day: 1 Smoking cigarettes per day: 20.0 Years smoked: 14 Smoking pack-years: 14.00 Smoking status: Former smoker Tobacco type: cigarettes Alcohol intake: never Alcohol use details: FEW DRINKS/YEAR Substance use: never Substance use type: does not use Do You Feel Safe in your Home?: Yes Lack of Transportation: No Lack of Food: Never True Current Housing: I Have Housing Concerned About Future Housing: No Difficulty Paying Gas/Electric Bills: No Difficulty Paying for Meds:
[2024-01-24 11:49] VITALS: BP 136/64; PULSE 62; RESP 16; TEMP 37; O2SAT 100
== END 2024-01-24 12:11 | disposition home or self-care (01) ==
PROVIDERS: Emergency Provider Nurse Practitioner Family; PCP Family Medicine
DX: H61.23 Impacted cerumen, bilateral (principal); J02.9 Acute pharyngitis, unspecified; Z87.891 Personal history of nicotine dependence; I10 Essential (primary) hypertension; E78.2 Mixed hyperlipidemia; E11.43 Type 2 diabetes mellitus with diabetic autonomic (poly)neuropathy; Z86.73 Personal history of transient ischemic attack (TIA), and cerebral infarction without residual deficits; M19.90 Unspecified osteoarthritis, unspecified site
CPT/HCPCS: 69210; 99212; G0463

== ENCOUNTER 2024-03-15 14:47 | Emergency (ER) | payer MEDICARE, SELFPAY ==
--- NOTE | 2024-03-15 14:55 | ED.URI ---
HPI - URI/Sore Throat General Chief Complaint: Upper Respiratory Infection Stated Complaint: COUGH/CONGESTION/WANTS COVID TEST Time Seen by Provider: 03/15/24 14:58 Source: patient and RN notes reviewed Mode of arrival: ambulatory Limitations: no limitations History of Present Illness HPI Narrative: 83 y/o male with hx HTN, DM presented for c/o cough and nasal congestion for 2 days. Endorses a large amount of mucous production and post nasal drainage. Symptoms started after air travel. Denies chest pain, palpitations, sob, wheezing, lethargy, body aches, n/v/d/f/c. Requesting covid test. Takes zyrtec and flonase daily. MD elicited complaint: cough Related Data Home Medications Medication Instructions Recorded Confirmed cetirizine 10 mg tablet (Zyrtec) 10 mg PO DAILY 07/04/19 03/15/24 multivitamin (Multiple Vitamins 1 tablet PO DAILY 02/29/20 03/15/24 tablet) finasteride 5 mg tablet 5 mg PO DAILY 02/26/22 03/15/24 mecobalamin (vitamin B12) 1,000 1,000 mcg PO HS 05/18/22 03/15/24 mcg chewable tablet ascorbate calcium (vitamin C) 500 500 mg PO DAILY 04/15/23 03/15/24 mg tablet ibuprofen 600 mg tablet 600 mg PO TID PRN Pain, Mild 10/15/23 03/15/24 ferrous sulfate 325 mg (65 mg 325 mg PO DAILY 11/03/23 03/15/24 iron) tablet polyethylene glycol 3350 17 17 g PO DAILY 11/03/23 03/15/24 gram/dose oral powder (Miralax) vibegron 75 mg tablet (Gemtesa) 75 mg PO DAILY 11/03/23 03/15/24 Allergies Allergy/AdvReac Type Severity Reaction Status Date / Time adhesive tape Allergy Mild Rash Verified 03/15/24 14:55 neomycin Allergy Mild Rash Verified 03/15/24 14:55 hydrochlorothiazide AdvReac Severe hyponatremi Verified 03/15/24 14:55 a Sulfa (Sulfonamide AdvReac Intermediate Nausea Verified 03/15/24 14:55 Antibiotics) Review of Systems Review of Systems: CONSTITUTIONAL: Denies malaise, chills, sweats, fever EYES: Denies visual changes, redness, or discharge ENT: Reports rhinorrhea, congestion, denies sinus pain, otalgia, sore throat CARDIOVASCULAR: Denies chest pain, palpitations, edema RESPIRATORY: Reports cough, post nasal drainage. Denies dyspnea GASTROINTESTINAL: Denies abdominal pain, nausea, vomiting, diarrhea SKIN: Denies rash or itching MUSCULOSKELETAL: Denies myalgia NEUROLOGIC: Denies headache PMFSH Past Medical History Medical History Acute hypokalemia Acute metabolic encephalopathy Arterial vascular disease Arthritis Brain TIA Chronic anemia Chronic indwelling Ahumada catheter Diastolic dysfunction Echocardiogram July 2023: EF 55-60% grade 1 diastolic dysfunction, mild concentric left ventricular wall thickness, normal valves Essential (primary) hypertension Fracture of ankle with nonunion Hematuria Intramuscular lipoma Mixed hyperlipidemia Peripheral autonomic neuropathy due to diabetes mellitus PVC (premature ventricular contraction) Retained orthopedic hardware Seasonal allergies Transient speech disturbance Traumatic arthritis of right ankle Trimalleolar fracture Urinary tract infection Vision abnormalities Wears glasses Surgical History Surgical History History of prostate biopsy Hx of cholecystectomy Status post open reduction with internal fixation (ORIF) of fracture of ankle Family History Family History Father Diabetes mellitus Acute myocardial infarction Hypertension Cerebrovascular accident Mother Family history of malignant neoplasm Social History Social History Social History: Surrogate medical decision maker: Fani Delacruz, spouse. Code status: Full code. Smoking packs per day: 1 Smoking cigarettes per day: 20.0 Years smoked: 14 Smoking pack-years: 14.00 Smoking status: Former smoker Tobacco type: cigarettes Alcohol in
[2024-03-15 14:59] VITALS: BP 129/77; PULSE 68; RESP 16; TEMP 36.9; O2SAT 99
[2024-03-15 15:15] LABS: EDCOVIDSCREEN Negative (Negative)
== END 2024-03-15 15:17 | disposition home or self-care (01) ==
PROVIDERS: Emergency Provider Nurse Practitioner Family; PCP Family Medicine
DX: J06.9 Acute upper respiratory infection, unspecified (principal); Z20.822 Contact with and (suspected) exposure to COVID-19; Z87.891 Personal history of nicotine dependence; M19.90 Unspecified osteoarthritis, unspecified site; D64.9 Anemia, unspecified; I10 Essential (primary) hypertension; E78.2 Mixed hyperlipidemia; E11.43 Type 2 diabetes mellitus with diabetic autonomic (poly)neuropathy; I77.9 Disorder of arteries and arterioles, unspecified; Z86.73 Personal history of transient ischemic attack (TIA), and cerebral infarction without residual deficits
CPT/HCPCS: 87426; 99212; G0463

== ENCOUNTER 2024-03-29 14:03 | Outpatient (CLI) | payer MEDICARE, SELFPAY ==
--- NOTE | ~2024-03-29 | CT_ITS ---
CLINICAL INDICATION: Retention of bladder COMPARISON: 01/08/2024. TECHNIQUE: Computed tomography (CT) of the abdomen and pelvis was performed without intravenous contr ast. The dose-length product was 540.24 mGy-cm. FINDINGS/OBSERVATIONS: Visualized lower thorax:The bilateral lung bases are clear. The heart is of normal size, without evie cardial effusion. Liver: The liver is not enlarged, measuring 17 cm in longitudinal dimension. Gallbladder and biliary system: The gallbladder is surgically absent. Pancreas: Limited evaluation of the pancreas secondary to the lack of intravenous contrast. Spleen: The spleen is not enlarged, and demonstrates homogeneous attenuation. Kidneys: Redemonstration of a exophytic focus of soft tissue attenuation along the medial margin of t he interpolar region of the left kidney, unchanged from prior. Multiple subcentimeter foci of fat attenuation are identified within bilateral kidneys. Adrenal glands: Unremarkable Gastrointestinal tract: Fecal stasis within the colon. Colonic diverticulosis without surrounding inf lammation. Appendix:The air-filled appendix is of normal caliber (series 2, image 71). Vasculature: Calcified atherosclerotic disease. Lymph nodes: No pathologically enlarged or morphologically suspicious lymph nodes are identified. Pelvic structures:The bladder is decompressed with a Ahumada catheter, limiting its evaluation. The prostate gland is globally enlarged. Body wall and musculoskeletal: Degenerative disease is identified within the lumbosacral spine, with osteophyte formation, disc space narrowing and endplate changes and vacuum phenomena. Grade 1 anterolisthesis of L4 on to L5 is also noted. IMPRESSION: Redemonstration of bladder decompression with a Ahumada catheter with continued global enlargement of t he prostate gland. Stable finding within the left kidney, as detailed above. Reviewed, dictated and finalized at location A. IMPRESSION: Redemonstration of bladder decompression with a Ahumada catheter with continued g lobal enlargement of the prostate gland. Stable finding within the left kidney, as detailed above.
== END 2024-03-29 14:04 | disposition home or self-care (01) ==
LOC: MICIMG 14:04
PROVIDERS: PCP Family Medicine; Visit Provider Urology
DX: R33.9 Retention of urine, unspecified (principal)
CPT/HCPCS: 74176

== ENCOUNTER 2024-04-07 09:54 | Outpatient (CLI) | payer MEDICARE, SELFPAY ==
--- NOTE | ~2024-04-07 | CT_ITS ---
Clinical Indication: Aortic aneurysm CT Scan of the Chest with Contrast: Technique: Contiguous sections were acquired throughout the chest after intravenous administration of 100 cc of Omnipaque 350. Dose reduction technique was used on this scan by utilizing automated expos ure control and iterative reconstruction technique. The dose-length product (DLP) was 422.99 mGy-cm. COMPARISON: 02/11/2022 Findings: There is no evidence of any significant mediastinal, hilar or axillary lymphadenopathy. There is no f illing defect in the pulmonary arterial tree to suggest pulmonary embolus. Ascending aorta measures 4 .4 cm in diameter. No aortic dissection. There is no evidence of pleural or pericardial effusion. The lungs are clear. No pulmonary nodules or infiltrates are noted. Images through the upper abdomen reveal no abnormalities. Impression: Ascending aortic aneurysm measures 4.4 cm in diameter. Reviewed, dictated and finalized at [facility]. Impression: Ascending aortic aneurysm measures 4.4 cm in diameter.
== END 2024-04-07 09:55 | disposition home or self-care (01) ==
LOC: ANHIMG 09:56
PROVIDERS: PCP Family Medicine; Visit Provider Internal Medicine Cardiovascular Disease
DX: I71.40 Abdominal aortic aneurysm, without rupture, unspecified (principal)
CPT/HCPCS: 71275; Q9967

== ENCOUNTER 2024-05-03 10:32 | Outpatient (CLI) | payer MEDICARE, SELFPAY ==
[2024-05-03 10:49] LABS: Hematocrit 40.3 % (42.0-52.0); Hemoglobin 13.2 g/dL (14.0-18.0); Mean Corpuscular HGB Conc 32.8 g/dl (32-36); Mean Corpuscular Volume 88.6 fl (80-100); Mean Platelet Volume 9.3 fl (7.4-10.4); Platelet Count Result 261 k/mm3 (150-375); Red Blood Count 4.55 M/mm3 (4.6-6.20); Red Cell Distribution Width 13.3 % (11.5-14.5); White Blood Count 6.9 K/mm3 (4.5-10.0)
[2024-05-03 13:04] LABS: Iron 130 ug/dL (49-181)
[2024-05-03 13:21] LABS: Percent Iron Saturation 47 % (20-50)
[2024-05-03 14:11] LABS: Folic Acid > 20.0 ng/mL (2.76->20)
== END 2024-05-03 10:33 | disposition home or self-care (01) ==
PROVIDERS: PCP Family Medicine; Visit Provider Internal Medicine Hematology & Oncology
DX: D64.9 Anemia, unspecified (principal)
CPT/HCPCS: 36415; 82607; 82728; 82746; 83540; 83550; 85027

== ENCOUNTER 2024-05-10 19:04 | Emergency (ER) | payer MEDICARE, SELFPAY ==
[2024-05-10 19:07] VITALS: BP 158/72; PULSE 81; RESP 15; TEMP 36.3; O2SAT 100
--- NOTE | 2024-05-11 00:11 | ED.MALEGU ---
HPI - Male Genitourinary General Chief complaint: Urogenital-Male Stated complaint: catheter issue Time Seen by Provider: 05/10/24 23:30 Source: patient and old records reviewed Mode of arrival: ambulatory Limitations: no limitations History of Present Illness HPI Narrative: Patient is an 84-year-old male who presents to the ED with report of clogged Ahumada catheter. Patient has long history of chronic indwelling Ahumada catheter, history of BPH. Sees Dr. Siegel. States today his catheter was accidentally pulled on and then stopped draining. He has had a similar issue in the past. He states this catheter was replaced last week and has had 1 other episode of clogging. Denies any abdominal or back pain, nausea, vomiting, fevers, hematuria. Related Data Home Medications Medication Instructions Recorded Confirmed cetirizine 10 mg tablet (Zyrtec) 10 mg PO DAILY 07/04/19 04/12/24 multivitamin (Multiple Vitamins 1 tablet PO DAILY 02/29/20 04/12/24 tablet) finasteride 5 mg tablet 5 mg PO DAILY 02/26/22 04/12/24 mecobalamin (vitamin B12) 1,000 1,000 mcg PO HS 05/18/22 04/12/24 mcg chewable tablet ascorbate calcium (vitamin C) 500 500 mg PO DAILY 04/15/23 04/12/24 mg tablet ibuprofen 600 mg tablet 600 mg PO TID PRN Pain, Mild 10/15/23 04/12/24 ferrous sulfate 325 mg (65 mg 325 mg PO DAILY 11/03/23 04/12/24 iron) tablet polyethylene glycol 3350 17 17 g PO DAILY 11/03/23 04/12/24 gram/dose oral powder (Miralax) vibegron 75 mg tablet (Gemtesa) 75 mg PO DAILY 11/03/23 04/12/24 Allergies Allergy/AdvReac Type Severity Reaction Status Date / Time adhesive tape Allergy Mild Rash Verified 04/12/24 16:47 neomycin Allergy Mild Rash Verified 04/12/24 16:47 hydrochlorothiazide AdvReac Severe hyponatremi Verified 04/12/24 16:47 a Sulfa (Sulfonamide AdvReac Intermediate Nausea Verified 04/12/24 16:47 Antibiotics) Review of Systems Review of Systems: All systems reviewed & are unremarkable except as noted in HPI. All systems reviewed & are unremarkable except as noted in HPI and below PMFSH Past Medical History Medical History Acute hypokalemia Acute metabolic encephalopathy Arterial vascular disease Arthritis Brain TIA Chronic anemia Chronic indwelling Ahumada catheter Diastolic dysfunction Echocardiogram July 2023: EF 55-60% grade 1 diastolic dysfunction, mild concentric left ventricular wall thickness, normal valves Essential (primary) hypertension Fracture of ankle with nonunion Hematuria Intramuscular lipoma Mixed hyperlipidemia Peripheral autonomic neuropathy due to diabetes mellitus PVC (premature ventricular contraction) Retained orthopedic hardware Seasonal allergies Transient speech disturbance Traumatic arthritis of right ankle Trimalleolar fracture Urinary tract infection Vision abnormalities Wears glasses Surgical History Surgical History History of prostate biopsy Hx of cholecystectomy Status post open reduction with internal fixation (ORIF) of fracture of ankle Family History Family History Father Diabetes mellitus Acute myocardial infarction Hypertension Cerebrovascular accident Mother Family history of malignant neoplasm Social History Social History Social History: Surrogate medical decision maker: Fani Delacruz, spouse. Code status: Full code. Smoking packs per day: 1 Smoking cigarettes per day: 20.0 Years smoked: 14 Smoking pack-years: 14.00 Smoking status: Former smoker Tobacco type: cigarettes Alcohol intake: never Alcohol use details: FEW DRINKS/YEAR Substance use: never Substance use type: does not use Do You Feel Safe in your Home?: Yes Lack of Transportation: No Lack of Food: Never True Current Housing: I Have Housing Concerned About Future Housing: No Difficulty Paying Gas/Electric Bills: No Difficulty Paying for Meds: No Currently Unemployed: No Education: Trade/Vocational Certificate Difficulty w/ Childcare or Family Care: No Living arrangements: with family Occupation/Education: retired Spiritual care concerns: No Exam Narrative: GENERAL: Elderly but well appearing, well-nourished, non-toxic, in no acute distress. HEAD: Normocephalic, atraumatic. RESPIRATORY: Airway patent, respirations nonlabored. CARDIOVASCULAR: Regular rate and rhythm MUSCULOSKELETAL: Moves all extremities. No gross deformities. Ahumada catheter in place draining yellow urine. SKIN: Warm, dry, normal color. NEURO: A&O X3. Speech clear. PSYCHIATRIC: Appropriate mood and affect. Normal interaction. Course Vital Signs Vital signs: Vital Signs Temperature 97.4 F L 05/10/24 19:07 Pulse Rate 81 05/10/24 19:07 Respiratory Rate 15 05/10/24 19:07 Blood Pressure 158/72 H 05/10/24 19:07 Pulse Oximetry 100 05/10/24 19:07 Temperature 98.1 F 05/11/24 00:36 Pulse Rate 71 05/11/24 00:36 Respiratory Rate 16 05/11/24 00:36 Blood Pressure 135/81 05/11/24 00:36 Pulse Oximetry 99 05/11/24 00:36 MDM - Male Genitourinary MDM Narrative Medical decision making narrative: Ahumada catheter was replaced upon arrival to the ED without issue. No further issues. Patient ready to be discharged. Advised to have follow-up with urology for further evaluation. Patient denies any abdominal, flank/back pain, systemic signs of infection to suggest need for further labs or imaging at this time. Offered to send urine for analysis, however patient reports he just recently got off antibiotics for UTI. Denies any concern for further infection. Will be discharged. Given return precautions. Discharged in stable condition. Medical Records Attestation: I reviewed the patient's medical records. Discharge Plan Discharge Clinical Impression: Malfunction of Ahumada catheter Qualifiers: Encounter type: initial encounter Qualified Code(s): T83.011A - Breakdown (mechanical) of indwelling urethral catheter, initial encounter Patient Disposition: Home, Self-Care Condition: Stable Instructions: Antibiotic Form, Ahumada Catheter Placement and Care (ED) Additional Instructions: Follow-up with urology for further evaluation. Return to the ED for new or worsening problems. Prescriptions: No Action hydrocortisone 2.5 % cream 1 applic topical TID PRN (Reason: itching) Qty: 30 0RF Rx Instructions: arms cetirizine [Zyrtec] 10 mg tablet 10 mg PO DAILY mecobalamin (vitamin B12) 1,000 mcg tablet,chewable 1,000 mcg PO HS ferrous sulfate 325 mg (65 mg iron) tablet 325 mg PO DAILY Gemtesa 75 mg tablet 75 mg PO DAILY polyethylene glycol 3350 [Miralax] 17 gram/dose powder 17 g PO DAILY finasteride 5 mg tablet 5 mg PO DAILY fluticasone propionate [Flonase Allergy Relief] 50 mcg/actuation spray,suspension 1 spray intranasal BID Qty: 16 3RF Rx Instructions: administer into each nostril amoxicillin-pot clavulanate 875-125 mg tablet 1 tablet PO Q12H Qty: 14 1RF ibuprofen 600 mg tablet 600 mg PO TID PRN (Reason: Pain, Mild) sodium chloride 1,000 mg tablet,soluble 500 mg PO DAILY Qty: 14 0RF multivitamin [Multiple Vitamins] Tablet 1 tablet PO DAILY ascorbate calcium (vitamin C) 500 mg Tablet 500 mg PO DAILY omeprazole 20 mg capsule,delayed release(DR/EC) 20 mg PO DAILY Qty: 90 1RF atorvastatin 10 mg tablet 10 mg PO HS Qty: 90 1RF amlodipine-benazepril 10-20 mg capsule 1 cap PO DAILY Qty: 90 1RF metformin 500 mg tablet 500 mg PO BID Qty: 180 1RF Follow-up/Referrals: Meliton Washbrun MD [Primary Care Provider] - Time of Disposition: 00:12
[2024-05-11 00:36] VITALS: BP 135/81; PULSE 71; RESP 16; TEMP 36.7; O2SAT 99
== END 2024-05-11 00:17 | disposition home or self-care (01) ==
PROVIDERS: Emergency Provider Physician Assistant; PCP Family Medicine
DX: T83.098A Other mechanical complication of other urinary catheter, initial encounter (principal); I11.9 Hypertensive heart disease without heart failure; E78.2 Mixed hyperlipidemia; E11.43 Type 2 diabetes mellitus with diabetic autonomic (poly)neuropathy; D64.9 Anemia, unspecified; Z87.440 Personal history of urinary (tract) infections; Z86.73 Personal history of transient ischemic attack (TIA), and cerebral infarction without residual deficits; Z87.891 Personal history of nicotine dependence; Z90.49 Acquired absence of other specified parts of digestive tract; Y84.6 Urinary catheterization as the cause of abnormal reaction of the patient, or of later complication, without mention of misadventure at the time of the procedure; Z79.84 Long term (current) use of oral hypoglycemic drugs; Z79.899 Other long term (current) drug therapy
CPT/HCPCS: 51702; 99283

== ENCOUNTER 2024-05-14 20:34 | Emergency (ER) | payer MEDICARE, SELFPAY ==
[2024-05-14 20:55] VITALS: BP 150/66; PULSE 65; RESP 14; TEMP 36.4; O2SAT 98
--- NOTE | 2024-05-14 21:46 | PC.NURSE ---
Pt. approached nurses station stating he is leaving hospital d/t long wait time and he will follow up with his PCP in the morning.
== END 2024-05-14 22:12 | disposition left against medical advice (07) ==
PROVIDERS: PCP Family Medicine
DX: L53.9 Erythematous condition, unspecified (principal)
CPT/HCPCS: 99199

== ENCOUNTER 2024-05-15 10:31 | Emergency (ER) | payer MEDICARE, SELFPAY ==
[2024-05-15 10:41] VITALS: BP 145/77; PULSE 71; RESP 19; TEMP 36.4; O2SAT 100
--- NOTE | 2024-05-15 11:14 | ED.SKABFB ---
HPI - Skin/Abscess/Foreign Bdy General Chief complaint: Skin/Abscess/Foreign Body Stated complaint: RED TOES ON BOTH FEET/R CALF TIGHTNESS Time Seen by Provider: 05/15/24 10:50 Source: patient, family, RN notes reviewed and old records reviewed Mode of arrival: ambulatory Limitations: no limitations History of Present Illness HPI narrative: 84 year old male accompanied by presents to express care with complaints of bilateral feet having wounds, to middle toe of left foot and 2nd toe of right foot with redness warmth and increased pain stated for the past 2 days. Patient reports that they went to the emergency room last night but left because of prolonged wait time.Patient reports that it feels like muscles pulling in the lower right thigh area with some discomfort to calf when he walks. Patient does have swelling to his right ankle but states that is normal since he had frature of right ankle and has hardware in it. Patient reports no known fevers or any shortness of breath. MD complaint: other (bilateral toe wounds with pulling sensation to his right leg ) Onset (ago): day(s) (2) Location: L foot and R foot Severity scale (1-10): 3 Treatments prior to arrival: none Related Data Home Medications Medication Instructions Recorded Confirmed cetirizine 10 mg tablet (Zyrtec) 10 mg PO DAILY 07/04/19 04/12/24 multivitamin (Multiple Vitamins 1 tablet PO DAILY 02/29/20 04/12/24 tablet) finasteride 5 mg tablet 5 mg PO DAILY 02/26/22 04/12/24 mecobalamin (vitamin B12) 1,000 1,000 mcg PO HS 05/18/22 04/12/24 mcg chewable tablet ascorbate calcium (vitamin C) 500 500 mg PO DAILY 04/15/23 04/12/24 mg tablet ibuprofen 600 mg tablet 600 mg PO TID PRN Pain, Mild 10/15/23 04/12/24 ferrous sulfate 325 mg (65 mg 325 mg PO DAILY 11/03/23 04/12/24 iron) tablet polyethylene glycol 3350 17 17 g PO DAILY 11/03/23 04/12/24 gram/dose oral powder (Miralax) vibegron 75 mg tablet (Gemtesa) 75 mg PO DAILY 11/03/23 04/12/24 Allergies Allergy/AdvReac Type Severity Reaction Status Date / Time adhesive tape Allergy Mild Rash Verified 05/14/24 20:59 neomycin Allergy Mild Rash Verified 05/14/24 20:59 hydrochlorothiazide AdvReac Severe hyponatremi Verified 05/14/24 20:59 a Sulfa (Sulfonamide AdvReac Intermediate Nausea Verified 05/14/24 20:59 Antibiotics) Review of Systems Review of Systems: CONSTITUTIONAL: Denies fever, chills, or sweats. EYES: Denies visual changes, redness, or discharge. ENT: Denies rhinorrhea, congestion, sore throat, or otalgia. CARDIOVASCULAR: Denies chest pain, palpitations, positive for edema right ankle. RESPIRATORY: Denies cough or dyspnea. GASTROINTESTINAL: Denies abdominal pain, nausea, vomiting, or diarrhea. GENITOURINARY: Denies dysuria or hematuria.has indwelling mariee catheter SKIN: Denies rash or itching. MUSCULOSKELETAL: Denies back pain, joint pain, or myalgia.pulling sensation to right posterior lower thigh and to right calf NEUROLOGIC: Denies headache, numbness, or weakness. PSYCHIATRIC: Denies anxiety or depression. All systems reviewed & are unremarkable except as noted in HPI and below PMFSH Past Medical History Medical History Acute hypokalemia Acute metabolic encephalopathy Arterial vascular disease Arthritis Brain TIA Chronic anemia Chronic indwelling Mariee catheter Diastolic dysfunction Echocardiogram July 2023: EF 55-60% grade 1 diastolic dysfunction, mild concentric left ventricular wall thickness, normal valves Essential (primary) hypertension Fracture of ankle with nonunion Hematuria Intramuscular lipoma Mixed hyperlipidemia Peripheral autonomic neuropathy due to diabetes mellitus PVC (premature ventricular contraction) Retained orthopedic hardware Seasonal allergies Transient speech disturbance Traumatic arthritis of right ankle Trimalleolar fracture Urinary tract infection Vision abnormalities Wears glasses Surgical History Surgical History History of prostate biopsy Hx of cholecystectomy Status post open reduction with internal fixation (ORIF) of fracture of ankle Family History Family History Father Diabetes mellitus Acute myocardial infarction Hypertension Cerebrovascular accident Mother Family history of malignant neoplasm Social History Social History Social History: Surrogate medical decision maker: Fani Delacruz, spouse. Code status: Full code. Smoking packs per day: 1 Smoking cigarettes per day: 20.0 Years smoked: 14 Smoking pack-years: 14.00 Smoking status: Former smoker Tobacco type: cigarettes Alcohol intake: never Alcohol use details: FEW DRINKS/YEAR Substance use: never Substance use type: does not use Do You Feel Safe in your Home?: Yes Lack of Transportation: No Lack of Food: Never True Current Housing: I Have Housing Concerned About Future Housing: No Difficulty Paying Gas/Electric Bills: No Difficulty Paying for Meds: No Currently Unemployed: No Education: Trade/Vocational Certificate Difficulty w/ Childcare or Family Care: No Living arrangements: with family Occupation/Education: retired Spiritual care concerns: No Comments At time of signature, agree with nursing past medical, surgical, social and family history. There is no relevant family history pertinent to the presenting complaint Exam Narrative: GENERAL:chronic ill-appearing, well-nourished, and in no acute distress. HEAD: Normocephalic, atraumatic. EYES: PERRLA and EOMI. ENT: Nares clear, no rhinorrhea or epistaxis. Mucous membranes moist. NECK: Supple.no lymphadenopathy CHEST: Clear to auscultation. No respiratory distress. SAO2 100% HEART: Regular rate and rhythm. No murmur heard. Normal peripheral pulses. ABDOMEN: Soft, nontender, nondistended, normal active bowel sounds. EXTREMITIES: Normal range of motion. edema to right ankle and to foot, reports pulling sensation to posterior lower thigh going into right calf no redness to calf area noted, states increased pain to leg with ambulation SKIN: Warm, dry, 1cm area of redness to distal medial toe of left foot no drainage noted with redness of toe, 2cm white friction rub to anterior 2nd toe with redness and swelling no drainage noted. pedal pulses palpable to bilateral feet, patient is diabetic and reports concern for infection. NEURO: No focal deficits. Alert and oriented x3. Course Course Emergency Course: Patient is aware of diagnosis, understands and agrees to treatment plan.? Anticipatory guidance given.? Patient agrees to follow-up as directed and is aware of reasons to seek care at the emergency department. Portions of this record may have been created with voice recognition software Level of Care: Express Care Visit Vital Signs Vital signs: Vital Signs Temperature 36.4 C L 05/15/24 10:41 Pulse Rate 71 05/15/24 10:41 Respiratory Rate 19 05/15/24 10:41 Blood Pressure 145/77 H 05/15/24 10:41 Pulse Oximetry 100 05/15/24 10:41 Oxygen Delivery Room Air 05/15/24 10:41 Temperature 36.4 C L 05/15/24 10:41 Pulse Rate 71 05/15/24 10:41 Respiratory Rate 19 05/15/24 10:41 Blood Pressure 145/77 H 05/15/24 10:41 Pulse Oximetry 100 05/15/24 10:41 Oxygen Delivery Room Air 05/15/24 10:41 Reviewed Transfer Transfered to: [place] Transportation: Other (private car with spouse) Transfer rationale: wounds bilateral feet with redness pain and swelling, pain to right posterior lower thigh and in right calf region increased with ambulation, multiple comorbidities Accepting physician: Dr Hernandez Transfer comments: To [facility] ED per private car accompanied by spouse MDM - Skin/Abscess/Foreign Bdy MDM Narrative Medical decision making narrative: 1120 Call to ED at [facility] ED with condition update, wounds and pain in right thigh and calf, VS and PMH reviewed with Dr Hernandez who is accepting physician for transfer Differential Diagnosis Differential diagnosis: Likely abscess of skin or subcutaneous tissue, cellulitis and other (diabetic wounds feet, right leg pain, phlebitis, DVT) Medical Records Attestation: I reviewed the patient's medical records. Critical Care Time Critical Care Time Critical Care Time: No Discharge Plan Discharge Clinical Impression: Blister of second toe, right, infected, Cellulitis of third toe, left, Pain of right thigh, Pain of right calf Patient Disposition: Acute Care Hospital Condition: Stable Prescriptions: No Action hydrocortisone 2.5 % cream 1 applic topical TID PRN (Reason: itching) Qty: 30 0RF Rx Instructions: arms cetirizine [Zyrtec] 10 mg tablet 10 mg PO DAILY mecobalamin (vitamin B12) 1,000 mcg tablet,chewable 1,000 mcg PO HS ferrous sulfate 325 mg (65 mg iron) tablet 325 mg PO DAILY Gemtesa 75 mg tablet 75 mg PO DAILY polyethylene glycol 3350 [Miralax] 17 gram/dose powder 17 g PO DAILY finasteride 5 mg tablet 5 mg PO DAILY fluticasone propionate [Flonase Allergy Relief] 50 mcg/actuation spray,suspension 1 spray intranasal BID Qty: 16 3RF Rx Instructions: administer into each nostril amoxicillin-pot clavulanate 875-125 mg tablet 1 tablet PO Q12H Qty: 14 1RF ibuprofen 600 mg tablet 600 mg PO TID PRN (Reason: Pain, Mild) sodium chloride 1,000 mg tablet,soluble 500 mg PO DAILY Qty: 14 0RF multivitamin [Multiple Vitamins] Tablet 1 tablet PO DAILY ascorbate calcium (vitamin C) 500 mg Tablet 500 mg PO DAILY clotrimazole [Antifungal (clotrimazole)] 1 % cream 1 applic topical BID 14 Days Qty: 15 0RF omeprazole 20 mg capsule,delayed release(DR/EC) 20 mg PO DAILY Qty: 90 1RF atorvastatin 10 mg tablet 10 mg PO HS Qty: 90 1RF amlodipine-benazepril 10-20 mg capsule 1 cap PO DAILY Qty: 90 1RF metformin 500 mg tablet 500 mg PO BID Qty: 180 1RF Follow-up/Referrals: Meliton Washburn MD [Primary Care Provider] - Time of Disposition: 11:27 Quality [place] Coma Scale Eyes: Open Verbal: Oriented and Alert Motor: Follows Commands [place] Coma Total Score: 15
== END 2024-05-15 11:27 | disposition short-term general hospital (02) ==
PROVIDERS: Emergency Provider Registered Nurse; PCP Family Medicine
DX: S90.424A Blister (nonthermal), right lesser toe(s), initial encounter (principal); L08.9 Local infection of the skin and subcutaneous tissue, unspecified; L03.032 Cellulitis of left toe; M79.651 Pain in right thigh; M79.661 Pain in right lower leg; I10 Essential (primary) hypertension; E78.2 Mixed hyperlipidemia; Z86.73 Personal history of transient ischemic attack (TIA), and cerebral infarction without residual deficits; Z87.891 Personal history of nicotine dependence; X58.XXXA Exposure to other specified factors, initial encounter
CPT/HCPCS: 99212; G0463

== ENCOUNTER 2024-05-15 12:13 | Emergency (ER) | payer MEDICARE, SELFPAY ==
[2024-05-15 12:16] VITALS: BP 144/59; PULSE 67; RESP 17; TEMP 36.4; O2SAT 100
[2024-05-15 13:40] VITALS: BP 125/60; PULSE 62; RESP 20; TEMP 36.6; O2SAT 100
--- NOTE | 2024-05-15 14:45 | ED.EXTPRO ---
HPI - Extremity Problem General Chief complaint: Extremity Problem,Nontraumatic Stated complaint: redness and swelling to bilateral feet Time Seen by Provider: 05/15/24 13:44 History of Present Illness HPI Narrative: patient is an 84-year-old male who presents ER with concern for skin discoloration on his feet bilaterally. Located in between the toes. Noticed some blistering of the skin as well. No redness streaking up fully. No fevers or chills or sweats. No drainage. Denies pain. Related Data Home Medications Medication Instructions Recorded Confirmed cetirizine 10 mg tablet (Zyrtec) 10 mg PO DAILY 07/04/19 04/12/24 multivitamin (Multiple Vitamins 1 tablet PO DAILY 02/29/20 04/12/24 tablet) finasteride 5 mg tablet 5 mg PO DAILY 02/26/22 04/12/24 mecobalamin (vitamin B12) 1,000 1,000 mcg PO HS 05/18/22 04/12/24 mcg chewable tablet ascorbate calcium (vitamin C) 500 500 mg PO DAILY 04/15/23 04/12/24 mg tablet ibuprofen 600 mg tablet 600 mg PO TID PRN Pain, Mild 10/15/23 04/12/24 ferrous sulfate 325 mg (65 mg 325 mg PO DAILY 11/03/23 04/12/24 iron) tablet polyethylene glycol 3350 17 17 g PO DAILY 11/03/23 04/12/24 gram/dose oral powder (Miralax) vibegron 75 mg tablet (Gemtesa) 75 mg PO DAILY 11/03/23 04/12/24 Allergies Allergy/AdvReac Type Severity Reaction Status Date / Time adhesive tape Allergy Mild Rash Verified 05/14/24 20:59 neomycin Allergy Mild Rash Verified 05/14/24 20:59 hydrochlorothiazide AdvReac Severe hyponatremi Verified 05/14/24 20:59 a Sulfa (Sulfonamide AdvReac Intermediate Nausea Verified 05/14/24 20:59 Antibiotics) Review of Systems Constitutional: Constitutional: Reports no additional constitutional complaints Musculoskeletal: Musculoskeletal: Reports no additional musculoskeletal complaints Integumentary/Breasts: Skin/Breast: Denies pruritus, Reports erythema, Reports rash and Reports skin ulcer PMFSH Past Medical History Medical History Acute hypokalemia Acute metabolic encephalopathy Arterial vascular disease Arthritis Brain TIA Chronic anemia Chronic indwelling [place] catheter Diastolic dysfunction Echocardiogram July 2023: EF 55-60% grade 1 diastolic dysfunction, mild concentric left ventricular wall thickness, normal valves Essential (primary) hypertension Fracture of ankle with nonunion Hematuria Intramuscular lipoma Mixed hyperlipidemia Peripheral autonomic neuropathy due to diabetes mellitus PVC (premature ventricular contraction) Retained orthopedic hardware Seasonal allergies Transient speech disturbance Traumatic arthritis of right ankle Trimalleolar fracture Urinary tract infection Vision abnormalities Wears glasses Surgical History Surgical History History of prostate biopsy Hx of cholecystectomy Status post open reduction with internal fixation (ORIF) of fracture of ankle Family History Family History Father Diabetes mellitus Acute myocardial infarction Hypertension Cerebrovascular accident Mother Family history of malignant neoplasm Social History Social History Social History: Surrogate medical decision maker: Fani Delacruz, spouse. Code status: Full code. Smoking packs per day: 1 Smoking cigarettes per day: 20.0 Years smoked: 14 Smoking pack-years: 14.00 Smoking status: Former smoker Tobacco type: cigarettes Alcohol intake: never Alcohol use details: FEW DRINKS/YEAR Substance use: never Substance use type: does not use Do You Feel Safe in your Home?: Yes Lack of Transportation: No Lack of Food: Never True Current Housing: I Have Housing Concerned About Future Housing: No Difficulty Paying Gas/Electric Bills: No Difficulty Paying for Meds: No Currently Unemployed: No Education: Trade/Vocational Certificate Difficulty w/ Childcare or Family Care: No Living arrangements: with family Occupation/Education: retired Spiritual care concerns: No Exam Narrative: GENERAL: Well-appearing, well-nourished, and in no acute distress. HEAD: Normocephalic, atraumatic. EXTREMITIES: Normal range of motion. No edema. Hammertoe deformities of the feet bilaterally. Has some ulcerations/ blister and redness between the 2nd and 3rd toes bilaterally. SKIN: Warm, dry, no rash. NEURO: Alert and oriented x3. PSYCH: Normal mood and affect. Course Course Emergency Course: Recommend foam a cushions between the toes will also start on antifungal medication. 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 Vital Signs Vital signs: Vital Signs Temperature 97.6 F 05/15/24 12:16 Pulse Rate 67 05/15/24 12:16 Respiratory Rate 17 05/15/24 12:16 Blood Pressure 144/59 H 05/15/24 12:16 Pulse Oximetry 100 05/15/24 12:16 Oxygen Delivery Room Air 05/15/24 12:16 Temperature 97.8 F 05/15/24 13:40 Pulse Rate 62 05/15/24 13:40 Respiratory Rate 20 05/15/24 13:40 Blood Pressure 125/60 05/15/24 13:40 Pulse Oximetry 100 05/15/24 13:40 Oxygen Delivery Room Air 05/15/24 13:40 Discharge Plan Discharge Clinical Impression: Pressure sore, Athlete's foot Patient Disposition: Home, Self-Care Condition: Stable Instructions: Skin Yeast Infection (ED) Additional Instructions: Return to the ER if you have worsening redness, you can see bone 3-year-old Meghana, or have additional concerns. 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 Prescriptions: New clotrimazole [Antifungal (clotrimazole)] 1 % cream 1 applic topical BID 14 Days Qty: 15 0RF No Action hydrocortisone 2.5 % cream 1 applic topical TID PRN (Reason: itching) Qty: 30 0RF Rx Instructions: arms cetirizine [Zyrtec] 10 mg tablet 10 mg PO DAILY mecobalamin (vitamin B12) 1,000 mcg tablet,chewable 1,000 mcg PO HS ferrous sulfate 325 mg (65 mg iron) tablet 325 mg PO DAILY Gemtesa 75 mg tablet 75 mg PO DAILY polyethylene glycol 3350 [Miralax] 17 gram/dose powder 17 g PO DAILY finasteride 5 mg tablet 5 mg PO DAILY fluticasone propionate [Flonase Allergy Relief] 50 mcg/actuation spray,suspension 1 spray intranasal BID Qty: 16 3RF Rx Instructions: administer into each nostril amoxicillin-pot clavulanate 875-125 mg tablet 1 tablet PO Q12H Qty: 14 1RF ibuprofen 600 mg tablet 600 mg PO TID PRN (Reason: Pain, Mild) sodium chloride 1,000 mg tablet,soluble 500 mg PO DAILY Qty: 14 0RF multivitamin [Multiple Vitamins] Tablet 1 tablet PO DAILY ascorbate calcium (vitamin C) 500 mg Tablet 500 mg PO DAILY omeprazole 20 mg capsule,delayed release(DR/EC) 20 mg PO DAILY Qty: 90 1RF atorvastatin 10 mg tablet 10 mg PO HS Qty: 90 1RF amlodipine-benazepril 10-20 mg capsule 1 cap PO DAILY Qty: 90 1RF metformin 500 mg tablet 500 mg PO BID Qty: 180 1RF Follow-up/Referrals: Meliton Washburn MD [Primary Care Provider] - 1 Week
== END 2024-05-15 15:17 | disposition home or self-care (01) ==
PROVIDERS: Emergency Provider Emergency Medicine; PCP Family Medicine
DX: B35.3 Tinea pedis (principal); L89.899 Pressure ulcer of other site, unspecified stage; I11.9 Hypertensive heart disease without heart failure; E78.2 Mixed hyperlipidemia; E11.51 Type 2 diabetes mellitus with diabetic peripheral angiopathy without gangrene; I73.9 Peripheral vascular disease, unspecified; E11.43 Type 2 diabetes mellitus with diabetic autonomic (poly)neuropathy; D64.9 Anemia, unspecified; Z87.440 Personal history of urinary (tract) infections; Z86.73 Personal history of transient ischemic attack (TIA), and cerebral infarction without residual deficits; Z87.891 Personal history of nicotine dependence; Z90.49 Acquired absence of other specified parts of digestive tract; Z79.84 Long term (current) use of oral hypoglycemic drugs; Z79.899 Other long term (current) drug therapy
CPT/HCPCS: 99283

== ENCOUNTER 2024-05-31 18:38 | Emergency (ER) | payer MEDICARE, SELFPAY ==
[2024-05-31 18:42] VITALS: BP 150/75; PULSE 86; RESP 16; TEMP 36.4; O2SAT 100
--- NOTE | 2024-05-31 19:41 | ED_ITS ---
HPI - Male Genitourinary General Chief complaint: Urogenital-Male Stated complaint: blocked catheter Time Seen by Provider: 05/31/24 19:04 History of Present Illness HPI Narrative: 84-year-old male with a past medical history including chronic indwelling Ahumada catheter, history of prostate cancer, hypertension, hyperlipidemia, TIA. Today presents to the emergency department, by his who provides collateral formation. He presents as he is having abdominal pain secondary to a clogged urinary catheter for 1 day duration. Had a similar episode happened 2 days prior and head exchange at his urologist office with improvement in symptoms. He tried calling his urologist today for similar events but they referred him to the emergency department as they were closed. Patient self denies any fever, chills, nausea, vomiting, back pain denies any feelings like he is having urinary infection states that he knows when he normally gets infection. Denies any history of stones. No bladder hematuria. Is otherwise in his normal state of health. Related Data Home Medications ?Medication ?Instructions ?Recorded ?Confirmed ?Last Taken ?Type cetirizine 10 mg tablet (Zyrtec) 10 mg PO DAILY 07/04/19 05/25/24 04/01/20 History multivitamin (Multiple Vitamins 1 tablet PO DAILY 02/29/20 05/25/24 04/01/20 History tablet) finasteride 5 mg tablet 5 mg PO DAILY 02/26/22 05/25/24 Unknown History mecobalamin (vitamin B12) 1,000 1,000 mcg PO HS 05/18/22 05/25/24 Unknown History mcg chewable tablet ascorbate calcium (vitamin C) 500 500 mg PO DAILY 04/15/23 05/25/24 Unknown History mg tablet ibuprofen 600 mg tablet 600 mg PO TID PRN Pain, Mild 10/15/23 05/25/24 Unknown History ferrous sulfate 325 mg (65 mg 325 mg PO DAILY 11/03/23 05/25/24 Unknown History iron) tablet polyethylene glycol 3350 17 17 g PO DAILY 11/03/23 05/25/24 Unknown History gram/dose oral powder (Miralax) vibegron 75 mg tablet (Gemtesa) 75 mg PO DAILY 11/03/23 05/25/24 Unknown History Allergies Allergy/AdvReac Type Severity Reaction Status Date / Time adhesive tape Allergy Mild Rash Verified 05/25/24 10:43 neomycin Allergy Mild Rash Verified 05/25/24 10:43 hydrochlorothiazide AdvReac Severe hyponatremi Verified 05/25/24 10:43 a Sulfa (Sulfonamide AdvReac Intermediate Nausea Verified 05/25/24 10:43 Antibiotics) Review of Systems Review of Systems: As reviewed above in HPI [facility] Past Medical History Medical History Pain of right calf UTI symptoms Intramuscular lipoma Diastolic dysfunction Echocardiogram July 2023: EF 55-60% grade 1 diastolic dysfunction, mild concentric left ventricular wall thickness, normal valves Chronic indwelling Ahumada catheter Transient speech disturbance Brain TIA Hematuria Urinary tract infection Chronic anemia Acute hypokalemia Acute metabolic encephalopathy Muscle cramp (~08/05/21) Chest pain (~08/05/21) Arthritis Wears glasses 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 Retained orthopedic hardware Seasonal allergies Vision abnormalities Trimalleolar fracture Essential (primary) hypertension Mixed hyperlipidemia PVC (premature ventricular contraction) Surgical History Surgical History Status post open reduction with internal fixation (ORIF) of fracture of ankle History of prostate biopsy Hx of cholecystectomy Family History Family History Father Diabetes mellitus Acute myocardial infarction Hypertension Cerebrovascular accident Mother Family history of malignant neoplasm Social History Social History Social History: Surrogate medical decision maker: Fani Delacruz, spouse. Code status: Full code. Smoking packs per day: 1 Smoking cigarettes per day: 20.0 Years smoked: 14 Smoking pack-years: 14.00 Smoking status: Former smoker Tobacco type: cigarettes Alcohol intake: never Alcohol use details: FEW DRINKS/YEAR Substance use: never Substance use type: does not use Do You Feel Safe in your Home?: Yes Lack of Transportation: No Lack of Food: Never True Current Housing: I Have Housing Concerned About Future Housing: No Difficulty Paying Gas/Electric Bills: No Difficulty Paying for Meds: No Currently Unemployed: No Education: Trade/Vocational Certificate Difficulty w/ Childcare or Family Care: No Living arrangements: with family Occupation/Education: retired Spiritual care concerns: No Exam Narrative: GENERAL: [Well-appearing, well-nourished, and in no acute distress.] HEAD: [Normocephalic, atraumatic.] EYES: [PERRLA and EOMI.] ENT: Nares clear, no rhinorrhea or epistaxis. Mucous membranes moist. NECK: Supple. CHEST: [Clear to auscultation. No respiratory distress.] HEART: [Regular rate and rhythm]. No murmur heard. [Normal peripheral pulses.] ABDOMEN: [Soft, nondistended], [nontender], [No rigidity or guarding] indwelling Ahumada catheter in place, penile region without any tenderness, overlying skin changes or ulcerations, clear urine with minimal drainage in the urine collection system EXTREMITIES: Normal range of motion. [No edema.] SKIN: Warm, dry, no rash. NEURO: [No focal deficits]. Alert and oriented [x3.] PSYCH: [Normal mood and affect.] Course Vital Signs Vital signs: Vital Signs Temperature 36.4 C 05/31/24 18:42 Pulse Rate 86 05/31/24 18:42 Respiratory Rate 16 05/31/24 18:42 Blood Pressure 150/75 H 05/31/24 18:42 Pulse Oximetry 100 05/31/24 18:42 Temperature 36.4 C 05/31/24 18:42 Pulse Rate 86 05/31/24 18:42 Respiratory Rate 16 05/31/24 18:42 Blood Pressure 150/75 H 05/31/24 18:42 Pulse Oximetry 100 05/31/24 18:42 MDM - Male Genitourinary MDM Narrative Medical decision making narrative: 84-year-old male with history of chronic indwelling Ahumada catheter in history of prostate cancer, hypertension, hyperlipidemia TIA. Presents today with a clogged urinary catheter. He is overall well appearance without any vital concerns such as tachycardia, fever, hypoxia significant blood pressure elevations. Has a soft nontender nondistended abdomen. His urine catheter does appear clogged and not clearly draining at this time. Denies any hematuria. Denies any feeling like he is having a urinary infection. Similar complaint at his urologist's office 2 days ago that was resolved with manipulation of the catheter. Suspicion is low for any acute intra-abdominal processes he has no history of kidney stones or bladder stones. No hematuria or fever. Catheter was exchanged at bedside with release of clear yellow urine in immediate relief patient's symptoms. Patient expressed understanding of the need for close Urology follow- up and was stable for safe discharge home at this time given that he is having symptom resolution and clear urine drainage at this time without any concerns. Medical Records Attestation: I reviewed the patient's medical records. Discharge Plan Discharge Clinical Impression: Malfunction of indwelling urinary catheter, Catheter (urine) change required Patient Disposition: Home, Self-Care Condition: Stable Instructions: Antibiotic Form Additional Instructions: Follow-up with your regular urologist on outpatient basis. Return with any new or worsening concerns at any time. Patient Language: Swazi Prescriptions: No Action hydrocortisone 2.5 % cream 1 applic topical TID PRN (Reason: itching) Qty: 30 0RF Rx Instructions: arms cetirizine [Zyrtec] 10 mg tablet 10 mg PO DAILY mecobalamin (vitamin B12) 1,000 mcg tablet,chewable 1,000 mcg PO HS ferrous sulfate 325 mg (65 mg iron) tablet 325 mg PO DAILY Gemtesa 75 mg tablet 75 mg PO DAILY polyethylene glycol 3350 [Miralax] 17 gram/dose powder 17 g PO DAILY finasteride 5 mg tablet 5 mg PO DAILY fluticasone propionate [Flonase Allergy Relief] 50 mcg/actuation spray,suspension 1 spray intranasal BID Qty: 16 3RF Rx Instructions: administer into each nostril ibuprofen 600 mg tablet 600 mg PO TID PRN (Reason: Pain, Mild) sodium chloride 1,000 mg tablet,soluble 500 mg PO DAILY Qty: 14 0RF multivitamin [Multiple Vitamins] Tablet 1 tablet PO DAILY ascorbate calcium (vitamin C) 500 mg Tablet 500 mg PO DAILY clotrimazole [Antifungal (clotrimazole)] 1 % cream 1 applic topical BID 14 Days Qty: 15 0RF atorvastatin 10 mg tablet 10 mg PO HS Qty: 90 1RF amlodipine-benazepril 10-20 mg capsule 1 cap PO DAILY Qty: 90 1RF metformin 500 mg tablet 500 mg PO BID Qty: 180 1RF omeprazole 20 mg capsule,delayed release(DR/EC) 20 mg PO DAILY Qty: 90 1RF Follow-up/Referrals: Meliton Washburn MD [Primary Care Provider] - Time of Disposition: 19:13
== END 2024-05-31 20:03 | disposition home or self-care (01) ==
PROVIDERS: Emergency Provider Student in an Organized Health Care Education/Training Program; PCP Family Medicine
DX: T83.091A Other mechanical complication of indwelling urethral catheter, initial encounter (principal); I11.9 Hypertensive heart disease without heart failure; E78.5 Hyperlipidemia, unspecified; E11.43 Type 2 diabetes mellitus with diabetic autonomic (poly)neuropathy; E78.2 Mixed hyperlipidemia; M19.90 Unspecified osteoarthritis, unspecified site; Z87.440 Personal history of urinary (tract) infections; Z85.46 Personal history of malignant neoplasm of prostate; Z86.73 Personal history of transient ischemic attack (TIA), and cerebral infarction without residual deficits; Z87.891 Personal history of nicotine dependence; Z90.49 Acquired absence of other specified parts of digestive tract; Y84.6 Urinary catheterization as the cause of abnormal reaction of the patient, or of later complication, without mention of misadventure at the time of the procedure; Z79.84 Long term (current) use of oral hypoglycemic drugs; Z79.899 Other long term (current) drug therapy
CPT/HCPCS: 51702; 99283

== ENCOUNTER 2024-06-02 15:20 | Emergency (ER) | payer MEDICARE, SELFPAY ==
[2024-06-02 15:22] VITALS: BP 136/107; PULSE 74; RESP 18; TEMP 37.1; O2SAT 100
[2024-06-02 16:24] LABS: Add Urine Microscopic? YES; Appearance Urine Clear (Clear); Bacteria Urine None Seen /hpf; Bilirubin Urine Negative (Negative); Blood Urine Non-Hemolyzed Trace (Negative); Color Urine Yellow (Yellow); Glucose Urine UA Negative (Negative); Ketones Urine Negative (Negative); Leukocyte Esterase Ur Trace LEU/UL (Negative); Need Manual Microscopic Reviewed; Nitrate Urine Negative (Negative); Non Pathogenic Casts 0-2; Protein Urine Trace mg/dL (Negative); Specific Grav Ur 1.008 (1.001-1.035); Squamous Epithelial Cell Urine None Seen /hpf (Few); pH Urine 7.5 (5.0-9.0)
--- NOTE | 2024-06-02 16:25 | ED.MALEGU ---
HPI - Male Genitourinary General Chief complaint: Urogenital-Male Stated complaint: blocked catheter Time Seen by Provider: 06/02/24 15:32 Source: patient Mode of arrival: ambulatory Limitations: no limitations History of Present Illness HPI Narrative: Patient is an 84-year-old male who presents the ED with report of catheter problem. Patient reports over last 1 hour, his catheter is not been draining appropriately. He began having pain in his abdomen, which prompted his presentation. Has had previous issues with his catheter in the past, well known to our facility and urology team. Catheter was recently changed in the ED. Denies any other signs or symptoms of infection. Denies back pain, nausea, vomiting, fevers, hematuria. Related Data Home Medications ?Medication ?Instructions ?Recorded ?Confirmed ?Last Taken ?Type cetirizine 10 mg tablet (Zyrtec) 10 mg PO DAILY 07/04/19 05/25/24 04/01/20 History multivitamin (Multiple Vitamins 1 tablet PO DAILY 02/29/20 05/25/24 04/01/20 History tablet) finasteride 5 mg tablet 5 mg PO DAILY 02/26/22 05/25/24 Unknown History mecobalamin (vitamin B12) 1,000 1,000 mcg PO HS 05/18/22 05/25/24 Unknown History mcg chewable tablet ascorbate calcium (vitamin C) 500 500 mg PO DAILY 04/15/23 05/25/24 Unknown History mg tablet ibuprofen 600 mg tablet 600 mg PO TID PRN Pain, Mild 10/15/23 05/25/24 Unknown History ferrous sulfate 325 mg (65 mg 325 mg PO DAILY 11/03/23 05/25/24 Unknown History iron) tablet polyethylene glycol 3350 17 17 g PO DAILY 11/03/23 05/25/24 Unknown History gram/dose oral powder (Miralax) vibegron 75 mg tablet (Gemtesa) 75 mg PO DAILY 11/03/23 05/25/24 Unknown History Allergies Allergy/AdvReac Type Severity Reaction Status Date / Time adhesive tape Allergy Mild Rash Verified 05/25/24 10:43 neomycin Allergy Mild Rash Verified 05/25/24 10:43 hydrochlorothiazide AdvReac Severe hyponatremi Verified 05/25/24 10:43 a Sulfa (Sulfonamide AdvReac Intermediate Nausea Verified 05/25/24 10:43 Antibiotics) Review of Systems Review of Systems: All systems reviewed & are unremarkable except as noted in HPI. 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 Retained orthopedic hardware Seasonal allergies Vision abnormalities Trimalleolar fracture Essential (primary) hypertension Mixed hyperlipidemia PVC (premature ventricular contraction) Surgical History Surgical History Status post open reduction with internal fixation (ORIF) of fracture of ankle History of prostate biopsy Hx of cholecystectomy Family History Family History Father Diabetes mellitus Acute myocardial infarction Hypertension Cerebrovascular accident Mother Family history of malignant neoplasm Social History Social History Social History: Surrogate medical decision maker: Fani Delacruz, spouse. Code status: Full code. Smoking packs per day: 1 Smoking cigarettes per day: 20.0 Years smoked: 14 Smoking pack-years: 14.00 Smoking status: Former smoker Tobacco type: cigarettes Alcohol intake: never Alcohol use details: FEW DRINKS/YEAR Substance use: never Substance use type: does not use Do You Feel Safe in your Home?: Yes Lack of Transportation: No Lack of Food: Never True Current Housing: I Have Housing Concerned About Future Housing: No Difficulty Paying Gas/Electric Bills: No Difficulty Paying for Meds: No Currently Unemployed: No Education: Trade/Vocational Certificate Difficulty w/ Childcare or Family Care: No Living arrangements: with family Occupation/Education: retired Spiritual care concerns: No Exam Narrative: GENERAL: Elderly but well appearing, well-nourished, non-toxic, in no acute distress. HEAD: Normocephalic, atraumatic. RESPIRATORY: Airway patent, respirations nonlabored. CARDIOVASCULAR: Regular rate and rhythm ABDOMINAL: Soft, no significant tenderness, nondistended. Normoactive BS. MUSCULOSKELETAL: Moves all extremities. No gross deformities. SKIN: Warm, dry, normal color. NEURO: A&O X3. Speech clear. PSYCHIATRIC: Appropriate mood and affect. Normal interaction. Course Vital Signs Vital signs: Vital Signs Temperature 98.7 F 06/02/24 15:22 Pulse Rate 74 06/02/24 15:22 Respiratory Rate 18 06/02/24 15:22 Blood Pressure 136/107 H 06/02/24 15:22 Pulse Oximetry 100 06/02/24 15:22 Oxygen Delivery Room Air 06/02/24 15:22 Temperature 98.7 F 06/02/24 15:22 Pulse Rate 74 06/02/24 15:22 Respiratory Rate 18 06/02/24 15:22 Blood Pressure 136/107 H 06/02/24 15:22 Pulse Oximetry 100 06/02/24 15:22 Oxygen Delivery Room Air 06/02/24 15:22 MDM - Male Genitourinary MDM Narrative Medical decision making narrative: Patient presented to ED with 1 hour onset of catheter not draining appropriately. Vital signs stable upon arrival. Triage nurse adjusted patient catheter upon arrival and the balloon did not appear to be inflated all the way. This was readjusted and corrected. Catheter began draining yellow urine promptly afterwards and patient reporting immense relief. He denies any other issues or symptoms of UTI prior to under malfunction. Urinalysis was obtained and with 6-10 whites, no urine bacteria seen. Sent for culture. Will defer to culture results. Patient discharged to follow-up with urology. He is comfortable with this. Given return precautions. Discharged in stable condition. Medical Records Attestation: I reviewed the patient's medical records. Lab Data Attestation: I reviewed the patient's lab results. Labs: Lab Results 06/02/24 Range/Units 15:39 Urine Color Yellow (Yellow) Urine Appearance Clear (Clear) Urine pH 7.5 (5.0-9.0) Ur Specific [place] 1.008 (1.001-1.035) Urine Protein Trace (Negative) mg/dL Urine Glucose (UA) Negative (Negative) mg/dL Urine Ketones Negative (Negative) mg/dL Ur Blood (Man) Non-hemolyzed trace (Negative) Urine Nitrate Negative (Negative) Urine Bilirubin Negative (Negative) Urine Urobilinogen 1.0 (<2.0) mg/dL Add Ur Microanalysis Reviewed Leukocyte Esterase Rfl Trace H (Negative) SOHAM/UL Urine RBC 3-5 H (0-2) /hpf Urine WBC 6-10 H (0-3) /hpf Ur Squamous Epith Cells None seen (Few) /hpf Urine Bacteria None seen /hpf Urine Casts 0-2 Discharge Plan Discharge Clinical Impression: Complication of Ahumada catheter Qualifiers: Encounter type: initial encounter Qualified Code(s): T83.9XXA - Unspecified complication of genitourinary prosthetic device, implant and graft, initial encounter Patient Disposition: Home, Self-Care Condition: Stable Instructions: Antibiotic Form, Ahumada Catheter Placement and Care (ED) Additional Instructions: Follow-up with primary care doctor and Urology for further evaluation. Patient Language: Vietnamese Prescriptions: No Action hydrocortisone 2.5 % cream 1 applic topical TID PRN (Reason: itching) Qty: 30 0RF Rx Instructions: arms cetirizine [Zyrtec] 10 mg tablet 10 mg PO DAILY mecobalamin (vitamin B12) 1,000 mcg tablet,chewable 1,000 mcg PO HS ferrous sulfate 325 mg (65 mg iron) tablet 325 mg PO DAILY Gemtesa 75 mg tablet 75 mg PO DAILY polyethylene glycol 3350 [Miralax] 17 gram/dose powder 17 g PO DAILY finasteride 5 mg tablet 5 mg PO DAILY fluticasone propionate [Flonase Allergy Relief] 50 mcg/actuation spray,suspension 1 spray intranasal BID Qty: 16 3RF Rx Instructions: administer into each nostril ibuprofen 600 mg tablet 600 mg PO TID PRN (Reason: Pain, Mild) sodium chloride 1,000 mg tablet,soluble 500 mg PO DAILY Qty: 14 0RF multivitamin [Multiple Vitamins] Tablet 1 tablet PO DAILY ascorbate calcium (vitamin C) 500 mg Tablet 500 mg PO DAILY clotrimazole [Antifungal (clotrimazole)] 1 % cream 1 applic topical BID 14 Days Qty: 15 0RF atorvastatin 10 mg tablet 10 mg PO HS Qty: 90 1RF amlodipine-benazepril 10-20 mg capsule 1 cap PO DAILY Qty: 90 1RF metformin 500 mg tablet 500 mg PO BID Qty: 180 1RF omeprazole 20 mg capsule,delayed release(DR/EC) 20 mg PO DAILY Qty: 90 1RF Follow-up/Referrals: Meliton Washburn MD [Primary Care Provider] - Time of Disposition: 16:40
--- OUTSIDE RECORDS SUMMARY | 2024-06-06 22:09 | XMS_ITS | Clinical Summary ---
Author Organization [facility] Address [address] [place] [address]. [place], [place] [address] [place] [address] Care Team Providers Care Real Estate Underwriter Name Role Phone Dale Stone MD Primary Care Provider [phone] Social History Tobacco Use Types Packs/Day Years Used Date Smoking Tobacco: Never Assessed Sex and Gender Information Value Date Recorded Sex Assigned at Not on file Legal Sex Male 8:01 AM CDT Gender Identity Not on file Sexual Orientation Not on file Plan of Treatment Health Maintenance Due Date Last Done Comments DTaP, Tdap and Td Vaccines ( 1 - Tdap) 1959 Zoster Vaccines (1 of 2) 1990 RSV Immunization or 60+ Years (1 - 1-dose 60+ series) 2000 Annual Medicare Wellness Visit 2005 Pneumococcal Vaccine: 65+ Years (1 of 1 - PCV) 2005 COVID-19 Vaccine ( - 2023-2 5 season) 2024 Influenza Adult (#1) 2024 03/28/2020, 03/29/2019, 03/24/2018 Meningococcal Vaccine Aged Out No werner terry eligible based on patient's age to complete this topic RSV Immunizations Under 20 Months Aged Out No longer eligible b ased on patient's age to complete this topic Insurance [facility] MEDICARE Care Teams Real Estate Underwriter Relationship Specialty Start Date End Date Dale Stone MD [address] [place] [address] PCP - General FAMILY PRACTICE 03/31/20
--- OUTSIDE RECORDS SUMMARY | 2024-06-06 22:10 | XMS_ITS | Encounter Summary ---
Author Organization [facility] Address [address] [place] [address]. [place], [place] [address] [place] [id number] Care Team Providers Care Mother Helper Name Role Phone Dale Stone MD Primary Care Provider [phone] Encounter Details Date Type Department Care Team (Latest Contact Info) Description 03/31/2020 Travel Social History Tobacco Use Types Packs/Day Years Used Date Smoking Tobacco: Never Assessed Sex and Gender Information Value Date Recorded Sex Assigned at Not on file Legal Sex Male 8:01 AM CDT Gender Identity Not on file Sexual Orientation Not on file COVID-19 Exposure Response Date Recorded In the last month, have you been in contact with someone who was confirmed or suspected to have Coronavirus / COVID-19? No / Unsure 03/31/2020 9:35 AM CDT documented as of this encounter Plan of Treatment Not on file documented as of this encounter Visit Diagnoses Not on filedocumented in this encounter Care Teams Mother Helper Relationship Specialty Start Date End Date Dale Stone MD [address] [place] [place] [address] PCP - General FAMILY PRACTICE 03/31/20 documented as of this encounter
--- OUTSIDE RECORDS SUMMARY | 2024-06-06 22:10 | XMS_ITS | Encounter Summary ---
Author Organization [facility] Address [address] [place] [address]. [place], [place] [id number] [place] [address] Care Team Providers Care Cartography Technician Name Role Phone Dale Stone MD Primary Care Provider [phone] Reason for Visit * Imaging (Routine) - Closed Specialty Diagnoses / Procedures Referred By Contac t Referred To Contact RADIOLOGY Diagnoses Arterial insufficiency of lower extremity (CMS/HCC) Procedures [employer] [facility] [employer] [facility] Johan Cuellar MD [id number] [facility] [address] [address] Phone: tel: fax: Referral ID Status Reason Start Date Expiration Date Visits Re quested Visits Authorized [id number] Closed 03/31/2020 05/01/2021 1 1 Encounter Details Date Type Department Care Team (Latest Contact Info) Description 03/31/2020 9:30 AM CDT - 03/31/2020 11:59 PM CDT Hospital Encounter [facility] Ultrasound [address] [place] [address] Johan Cuellar MD [address] [facility] [address] [address] Discharge Disposition: Home or Self Care (Routine Discharge) Social History Tobacco Use Types Packs/Day Years [...] on file documented as of this encounter Procedures Procedure Name Priority Date/Time Associated Diagnosis Comments [employer] [facility] Routine 03/31/2020 11:48 AM CDT Arterial insufficiency of lower extremity documented in this encounter Results * [employer] [facility] (03/31/2020 11:48 AM CDT) Anatomical Region Laterality Modality Extremity Ultrasound 03/31/2020 11:5 3 AM CDT Impressions 03/31/2020 11:54 AM CDT IMPRESSION: Mild right-sided peripheral vascular disease with normal ankle-brachial indices bilaterally.. Interpreted By: Vitaly Dover, 03/31/2020 11:53 AM Narrative 03/31/2020 11:54 AM CDT EXAMINATION: [employer] [facility] INDICATIONS: Peripheral vascular disease, unspecified COMPARISON: NONE FINDINGS: Right brachial artery pressure: 140 mmHg. Left brachial artery pressure: 139 mmHg. Biphasic waveforms at the dorsalis pedis and posterior tibial arteries bilaterally, blunted on the right. Right ankle brachial index: 1.29. Right toe brachial index: 0.76 Left ankle brachial index: 1.31. Left toe brachial index: 1.21 Procedure Note Vitaly Dover MD - 03/31/2020 EXAMINATION: [employer] JUAN INDICATIONS: Peripheral vascular disease, unspecified COMPARISON: NONE FINDINGS: Right brachial artery pressure: 140 mmHg. Left brachial artery pressure: 139 mmHg. Biphasic waveforms at the dorsalis pedis and posterior tibial arteries bilaterally, blunted on the right. Right ankle brachial index: 1.29. Right toe brachial index: 0.76 Left ankle brachial index: 1.31. Left toe brachial index: 1.21 IMPRESSION: Mild right-sided peripheral vascular disease with normal ankle-brachial indices bilaterally.. Interpreted By: Vitaly Dover, 03/31/2020 11:53 AM us Johan Cuellar MD VASC Final Result documented in this encounter Visit Diagnoses Diagnosis Peripheral vascular disease, unspecified (CMS/HCC) Peripheral vascular disease, unspecified Arterial insufficiency of lower extremity (CMS/HCC) documented in this encounter Care Teams Cartography Technician Relationship Specialty Start Date End Date Dale Stone MD [address] [place] [address] PCP - General FAMILY PRACTICE 03/31/20 documented as of this encounter
--- OUTSIDE RECORDS SUMMARY | 2024-06-06 22:13 | XMS_ITS | Clinical Summary ---
Author Organization [facility] [place] [address] Address [address] [place] [address] Care Team Providers Care Relationship Consultant Name Role Phone Meliton Washburn MD Primary Care Provider [phone] Allergies Active Allergy Reactions Criticality Noted Date Comments Adhesive Tape-Silicones Rash Medium 01/19/2024 Sulfa (Sulfonamide Antibiotics) Unknown 09/2021 Medications amLODIPine-debra zepriL (LOTREL) 10-20 mg per capsule Take 1 capsule by mouth daily 2 Active metFORMIN (GLUCOPHAGE) 500 mg tablet Take 1 tablet (500 mg total) by mouth 2 (two) times a day 2 Active atorvastatin (LIPITOR) 10 mg tablet 2 Active omeprazole (PriLOSEC) 20 mg capsule Take 1 capsule (20 mg total) by mouth daily 2 Active ferrous sulfate 325 mg (65 mg of elemental iron) tablet Take 1 tablet (325 mg total) by mouth daily with breakfast Active fluticasone propionate (FLONASE) 50 mcg/actuation nasal spray Administer 1 spray into each nostril daily Active multivitamin-mi nerals-lutein (Multivitamin 50 Plus) tablet Take by mouth daily Active finasteride (PROSCAR) 5 mg tablet Take 1 tablet (5 mg total) by mouth daily 2 Active sodium chloride 1 gram tablet Take 1 tablet (1 g total) by mouth 3 (three) times a day 270 tablet 3 4 11/16/19 25 Active ascorbic acid (ascorbic acid with brenda hips) 500 mg tablet,chewable daily Acti ve cyanocobalamin (Vitamin B-12) 1,000 mcg tabletIndicatio ns:Prevention of Vitamin B12 Deficiency Take 1 tablet (1,000 mcg total) by mouth daily Active polyethylene glycol (MIRALAX) 17 gram packetIndicatio ns:constipation Take 1 packet (17 g total) by mouth daily Active Active Problems Problem Noted Date Diagnosed Date Hyponatremia 10/23/2023 Acute cystitis without hematuria 10/23/2023 Generalized weakness 10/23/2023 Hypertension associated with diabetes Hyperlipidemia associated with type 2 diabetes m ellitus Aneurysm of ascending aorta Nonrheumatic aortic valve stenosis Resolved Problems Problem Noted Date Diagnosed Date Resolved Date Other chest pain 10/23/2023 Encounters Date Type Department Care Team Description 04/09/2024 10:30 AM CDT Office Visit [facility] Cardiology [address] [facility] [address] [place] [address] Karen Benjamin MD Hypertension associated with diabetes (HCC) (Primary Dx); Hyperlipidemia associated with type 2 diabetes mellitus (HCC); Nonrheumatic aortic valve stenosis; Aneurysm of ascending aorta without rupture (HCC) 04/06/2024 Telephone [facility] Cardiology [address] [facility] [address] [place] [address] Karen Benjamin MD CTA order 03/21/2024 Telephone [facility] Nephrology at [address] [place] [address] Sourav Park MD 03/20/2024 Orders Only [facility] Nephrology at [address] [place] [address] ProviderChrist MD from Last 3 Months Surgical History Surgery Date Site/Laterality Comments CHOLECYSTECTOMY ANKLE FRACTURE SURGERY Right x 2 Medical History Medical History Date Comments HTN (hypertension) Heart murmur High cholesterol Type 2 diabetes mellitus (HCC) GERD (gastroesophageal reflux disease) Arthritis Enlarged prostate Family History Medical History Relation Name Comments Heart attack Father Stroke Father Cancer Mother Heart disease Other Stroke Other Relation Name Status Comments Father Mother Other Social History Tobacco Use Types Packs/Day Years Used Date Smoking Tobacco: Former Cigarettes 0.5 50 S tarted: 1974 Smokeless Tobacco: Never Tobacco Cessation:Counseling Given: Not Answered [facility] Utilities Answer Date Recorded In the past 12 months has th e electric, gas, oil, or water company threatened to shut off services in your home? No 10/24/2023 Social Connection and Isolat ion Panel [NHANES] Answer Date Recorded In a typical week, how many times do you talk on the phone with family, friends, or neighbors? More than three times a week 10/24/2023 How often do you get togethe r with friends or relatives? More than three times a week 10/24/2023 How often do you attend chur ch or congregation services? Never 10/24/2023 Do you belong to any clubs o r organizations such as sikh groups, unions, fraternal or athletic groups, or school groups? No 10/24/2023 How often do you attend meet ings of the clubs or organizations you belong to? Never 10/24/2023 Are you , , di vorced, , never , or living with a partner? 10/24/2023 AUDIT-C Answer Date Recorded Q1: How often do you have a drink containing alcohol? Never 12/21/2023 Q2: How many drinks containi ng alcohol do you have on a typical day when you are drinking? Patient does not drink Q3: How often do you have si x or more drinks on one occasion? Never 12/21/2023 Overall Financial Resource Strain (CARDIA) Answe r Date Recorded How hard is it for you to pa y for the very basics like food, housing, medical care, and heating? Not hard at all 10/24/2023 Hunger Vital Sign Answer Date Recorded Within the past 12 months, y ou worried that your food would run out before you got the money to buy more. Never true 10/24/19 24 Within the past 12 months, t he food you bought just didn't last and you didn't have money to get more. Never true 10/24/2023 PRAPARE - Transportation Answer Date Re corded In the past 12 months, has l ack of transportation kept you from medical appointments or from getting medications? No 11/2023 In the past 12 months, has l ack of transportation kept you from meetings, work, or from getting things needed for daily living? No 10/24/2023 Housing Stability Vital Sign Answer Alec e Recorded In the last 12 months, was t here a time when you were not able to pay the mortgage or rent on time? No 10/24/2023 In the last 12 months, how many places have you lived? 1 10/24/2023 In the last 12 months, was t here a time when you did not have a steady place to sleep or slept in a senior care (including now)? No 10/24/2023 Personal Safety Answer Date Recorded Have you ever been in or are you currently in a harmful physical or emotional relationship or is someone making you feel afraid or unsafe? 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 Gender Identity Not on file Sexual Orientation Not on file Obstetrics History Last Filed Vital Signs Vital Sign Reading Time Taken Comments Blood Pressure 132/72 04/09/2024 10:06 AM CDT Pulse 64 04/09/2024 10:06 AM CDT Temperature 36.5 ??C (97.7 ??F) 10/27/2023 1 2:40 PM CDT Respiratory Rate 18 10/27/2023 12:4 0 PM CDT Oxygen Saturation 99% 04/09/2024 10: 06 AM CDT Inhaled Oxygen Concentration - - Weight 84.3 kg (185 lb 14.4 oz) 024 10:06 AM CDT Height 182.9 cm (6') 04/09/2024 10:06 AM CDT Body Mass Index 25.21 04/09/2024 10:06 AM CDT Plan of Treatment Health Maintenance Due Date Last Done Comments Albumin Creatinine Ratio, Urine 1940 Depression Screening 1940 Dilated Eye Exam 1940 Foot Exam 1940 Pneumococcal vaccine 65+ (1 of 2 - PCV) 1946 DTaP/Tdap/Td Vaccine (1 - Tdap) 1951 Hepatitis B Screening 1958 Zoster Vaccine (1 of 2) 1990 Well Visit 65+ 2005 Covid-19 Vaccine (4 - 2023-2 5 season) 2024 05/28/2021, 09/05/2020, 08/15/2020 Influenza Vaccine (#1) 2024 , 03/28/2020, 03/29/2019, Additional history exists Hemoglobin A1C 04/25/2024 10/24/2023 Lipid Panel 10/23/2024 10/24/2023 Fall Risk Assessment 10/26/2024 10/27/2023 eGFR 10/26/2024 10/27/2023, 05/0 01/2024, 10/26/2023, Additional history exists Procedures Procedure Name Priority Date/Time Associated Diagnosis Comments RENAL FUNCTION PANEL Routine 03/20/2024 5:01 PM CDT EGFR Routine 10/27/2023 8:55 AM CDT HEMOGLOBIN A1C Routine 10/24/2023 7:46 AM CDT LIPID PANEL Routine 10/24/2023 7:46 AM CDT from Last 3 Months or Most Recently Relevant to Health Maintenance Results * Renal function panel (03/20/2024 5:01 PM CDT) Blood us Historical Provider LAB BLOOD ORDERABLES Adeline montez Result EXTERNAL LAB * eGFR (10/27/2023 8:55 AM CDT) eGFR >90 >=60 mL/min/1. 73 m2 Comment: Interpretive Data Reference Interval Normal ?>/= 90 mL/min/1.73m2 Mildly decreased* ? 60 - 89 mL/min/1.73m2 Mildly to moderately decreased ?45 - 59 mL/min/1.73m2 Moderately to severely decreased ??30 - 44 mL/min/1.73m2 Severely decreased ?15 - 29 mL/min/1.73m2 Kidney Failure ?< 15 ??mL/min/1.73m2 *Relative to young adult level Estimated glomerular filtration rate is determined by the 2020 CKD-EPI equation recommended by the National Kidney Foundation (A Unifying Approach to GFR Estimation: Recommendations of the NKF-ASK Task Force on Reassessing the Inclusion of Race in Diagnosing Kidney Disease, JASN 2020). The CKD-EPI equation should not be used for patients with unstable renal function and has not been validated in children and those over 70. Current interpretive data was last reviewed 2021. Testing performed by: [address] [address] Blood 10/27/2023 8:55 AM CDT 10/27/2023 9:00 AM CDT us Ingrid Cheek MD LAB BLOOD ORDERABLES Final Resul t [facility] [address] [facility] Department [place] [address] * (ABNORMAL) Hemoglobin A1c (10/24/2023 7:46 AM CDT) [facility] Hgb A1C 6.9(H) 4.0 - 5.6 % Comment:Testing performed by : [address] [address] Estimated Average Glucose 151 mg/dL [facility] Comment: The ADA recommends reporting an estimated Average Glucose (eAG) with all Hemoglobin A1c results using the equation derived from a study of 507 normal and diabetic adults. ??Minority populations were underrepresented and children were not included. ?? (Diabetes Care 31:3089-6010, 2008). ??The eAG is not equivalent to a fasting glucose. Testing performed by: [address] [address] Blood 10/24/2023 7:46 AM CDT 10/24/2023 9:33 AM CDT us Jaren Goyal MD LAB BLOOD ORDERABLES Final Result [facility] [address] [facility] Department [place] [address] * Lipid panel (10/24/2023 7:46 AM CDT) [facility] Cholesterol 101 30 - 199 mg/dL Comment: Interpretive Data Ages < or = 19 years ??Acceptable: ? <170 mg/dL ??Borderline high: ??170-199 mg/dL ??High: ? >or= 200 mg/dL Ages > or = 20 years ??Desirable: ?<200 mg/dL ??Borderline high: ??200-239 mg/dL ??High: ? >or= 240 mg/dL Literature References: 1. Expert Panel on Integrated Guidelines for Cardiovascular Health and Risk Reduction in Children and Adolescents. Pediatrics 2011;128:S213 2. NCEP Expert Panel. Circulation 2004;110:227 Current Interpretive Data was last revised on 2018. Testing performed by: [facility], [address] [place] [address]., [address] Triglycerides 79 <=149 mg/dL [facility] Comment: Interpretive Data Ages < or = 9 years ??Acceptable: ? <75 mg/dL ??Borderline high: ??75-99 mg/dL ??High: ? >or= 100 mg/dL Ages 10 to 20 years ??Acceptable: ? <90 mg/dL ??Borderline high: ??90-129 mg/dL ??High: ? >or= 130 mg/dL Ages > or = 20 years ??Desirable: ?<150 mg/dL ??Borderline high: ??150-199 mg/dL ??High: ? 200-499 mg/dL ?Very high: ?? >or= 499 mg/dL Literature References: 1. Expert Panel on Integrated Guidelines for Cardiovascular Health and Risk Reduction in Children and Adolescents. Pediatrics 2011;128:S213 2. NCEP Expert Panel. Circulation 2004;110:227 Current Interpretive Data was last revised on 2018. Testing performed by: [address] [address] HDL 45 >=40 mg/dL [facility] Comment: Interpretive Data Ages < or = 19 years ??Acceptable: ? >45 mg/dL ??Borderline low: ?? 40-45 mg/dL ??Low: ? <40 mg/dL Ages > or = 20 years ??Desirable: ?>or= 60 mg/dL ??Low: ? <40 mg/dL Literature References: 1. Expert Panel on Integrated Guidelines for Cardiovascular Health and Risk Reduction in Children and Adolescents. Pediatrics 2011;128:S213 2. NCEP Expert Panel. Circulation 2004;110:227 Current Interpretive Data was last revised on 2018. Testing performed by: [address] [address] LDL, calculated 40 <=129 mg/dL [facility] Comment: Interpretive Data Ages < or = 19 years ??Acceptable: ? <110 mg/dL ??Borderline high: ??110-129 mg/dL ??High: ?>or= 130 mg/dL Ages > or = 20 years ??Optimal: ? <100 mg/dL ??Near optimal: ?100-129 mg/dL ??Borderline high: ?? 130-159 mg/dL ??High: ?>160 mg/dL Literature References: 1. Expert Panel on Integrated Guidelines for Cardiovascular Health and Risk Reduction in Children and Adolescents. Pediatrics 2011;128:S213 2. NCEP Expert Panel. Circulation 2004;110:227 Current Interpretive Data was last revised on 2018. Testing performed by: [address] [address] Non-HDL Cholesterol 56 mg/dL [facility] Comment: Interpretive Data Ages < or = 19 years ??Acceptable: ?<120 mg/dL ??Borderline high: ??120-144 mg/dL ??High: ?>145 mg/dL Ages > or = 20 years ??When triglycerides are >200 mg/dL, Non-HDL cholesterol is a secondary target of ? therapy with treatment goals that are 30 mg/dL greater than the LDL cholesterol target. ? Literature References: 1. Expert Panel on Integrated Guidelines for Cardiovascular Health and Risk Reduction in Children and Adolescents. Pediatrics 2011;128:S213 2. NCEP Expert Panel. Circulation 2004;110:227 Current Interpretive Data was last revised on 2018. Testing performed by: [address] [address] Chol/HDL ratio 2 [facility] Comment:Testing performed by : [facility], [address] [place] [address]., [address] Blood 10/24/2023 7:46 AM CDT 10/24/2023 9:33 AM CDT us Jaren Goyal MD LAB BLOOD ORDERABLES Final Result [facility] [address] [facility] Department [place] [address] from Last 3 Months or Most Recently Relevant to Health Maintenance Insurance MEDICARE COUNTS INCLUDE 234 BEDS AT THE [facility] COUNTS INCLUDE 234 BEDS AT THE [facility] MEDICARE MEDICARE BLUE [employer]ITIONAL [place] Advance Directives For more information, please contact: [phone] * Full Code (Latest Code Status on File) Date Activated Date Inactivated Comments 10/23/2023 9:44 PM 10/27/2023 6:43 PM Care Teams Relationship Consultant Relationship Specialty Start Date End Date Meliton Washburn MD PCP - General Family Medicine 04/01/22
--- OUTSIDE RECORDS SUMMARY | 2024-06-06 22:13 | XMS_ITS | Referral Summary ---
Author Organization [place] [address] Address [address] [facility] [address] [place] [address] Care Team Providers Care Manager Card Name Role Phone Meliton Washburn MD Primary Care Provider [phone] [phone] Encounters Date Type Department Care Team Description 04/09/2024 10:30 AM CDT Office Visit [facility] Cardiology [address] [place] [address] [address] [place] [address] Karen Benjamin MD Hypertension associated with diabetes (HCC) (Primary Dx); Hyperlipidemia associated with type 2 diabetes mellitus (HCC); Nonrheumatic aortic valve stenosis; Aneurysm of ascending aorta without rupture (HCC) 04/06/2024 Telephone [facility] Cardiology [address] [place] [address] [address] [place] [address] Karen Benjamin MD CTA order 03/21/2024 Telephone [facility] Nephrology at [address] [place] [address] Sourav Park MD 03/20/2024 Orders Only [facility] Nephrology at [address] [place] [address] ProviderChrist MD from Last 3 Months Allergies Active Allergy Reactions Criticality Noted Date Comments Adhesive Tape-Silicones Rash Medium 01/19/2024 Sulfa (Sulfonamide Antibiotics) Unknown 04/0 09/2021 Medications amLODIPine-debra zepriL (LOTREL) 10-20 mg [...] Date Resolved Date Other chest pain 10/23/2023 Social History Tobacco Use Types Packs/Day Years Used Date Smoking Tobacco: Former Cigarettes 0.5 50 S tarted: 1974 Smokeless Tobacco: Never Tobacco Cessation:Counseling Given: Not Answered [facility] Utilities Answer Date Recorded In the past 12 months has [facility] [employer], [employer], oil, or water [employer] threatened to shut off services in your [...] often do you attend chur ch or episcopalian services? Never 10/24/2023 Do you belong to any clubs o r organizations such as jain groups, unions, fraternal or athletic groups, or [...] place to sleep or slept in a skilled nursing (including now)? No 10/24/2023 Personal Safety Answer Date Recorded Have you ever been in or are you currently in a harmful physical or emotional relationship or is someone making you feel afraid or unsafe? 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 Testing performed by: [facility], [address] [place] [address]., [address] Blood 10/27/2023 8:55 AM CDT 10/27/2023 9:00 AM CDT us Ingrid Cheek MD LAB BLOOD ORDERABLES Final Resul t [id number] [address] [facility] Department [place] [address] * (ABNORMAL) Hemoglobin A1c (10/24/2023 7:46 AM CDT) Pathologist [facility] Hgb A1C 6.9(H) 4.0 - 5.6 % Comment:Testing performed by : [address] [address] Estimated Average Glucose 151 mg/dL [facility] Comment: The ADA recommends reporting an estimated Average Glucose (eAG) with all Hemoglobin A1c results using the equation derived from a study of 507 normal and diabetic adults. ??Minority populations were underrepresented and children were not included. ?? (Diabetes Care 31:5680-7034, 2008). ??The eAG is not equivalent to a fasting glucose. Testing performed by: [address] [address] Blood 10/24/2023 7:46 AM CDT 10/24/2023 9:33 AM CDT us Jaren Goyal MD LAB BLOOD ORDERABLES Final Result [facility] [address] [facility] Department of Laboratories [place], [place] [id number] * Lipid panel (10/24/2023 7:46 AM CDT) [facility] Cholesterol 101 30 - 199 mg/dL Comment: [...] last revised on 2018. Testing performed by: [address] [address] Triglycerides 79 <=149 mg/dL [facility] Comment: Interpretive [...] last revised on 2018. Testing performed by: [address] [address] HDL 45 >=40 mg/dL [facility] Comment: Interpretive [...] last revised on 2018. Testing performed by: [address] [address] LDL, calculated 40 <=129 mg/dL [facility] Comment: [...] last revised on 2018. Testing performed by: [address] [address] Non-HDL Cholesterol 56 mg/dL [facility] Comment: Interpretive Data Ages < or = [...] last revised on 2018. Testing performed by: [address] [address] Chol/HDL ratio 2 [facility] Comment:Testing performed by : [address] [address] Blood 10/24/2023 7:46 AM CDT 10/24/2023 9:33 AM CDT us Jaren Goyal MD LAB BLOOD ORDERABLES Final Result [facility] [address] [facility] Department [place] [address] from Last 3 Months or Most Recently Relevant to Health Maintenance Insurance MEDICARE [facility] MEDICARE MEDICARE [facility] Advance Directives For more information, please contact: [phone] * Full Code (Latest Code Status on File) Date Activated Date Inactivated Comments 10/23/2023 9:44 PM 10/27/2023 6:43 PM Care Teams Manager Card Relationship Specialty Start Date End Date Meliton Washburn MD PCP - General Family Medicine 04/01/22
--- OUTSIDE RECORDS SUMMARY | 2024-06-06 22:13 | XMS_ITS | Encounter Summary ---
Author Organization [facility] Healthcare Address [address] [place] [address] Care Team Providers Care Criminal Justice Program Director Name Role Phone Meliton Washburn MD Primary Care Provider [phone] [phone] Reason for Visit * Reason Comments Follow-up 8 mo f/u Hypertension Mild Encounter Details Date Type Department Care Team (Late st Contact Info) Description 04/09/2024 10:30 AM CDT Office Visit [facility] Medical Group Cardiology [address] [place] [address] Karen Benjamin MD [address] [place] [id number] Hypertension associated with diabetes (HCC) (Primary Dx); Hyperlipidemia associated with type 2 diabetes mellitus (HCC); Nonrheumatic aortic valve stenosis; Aneurysm of ascending aorta without rupture (HCC) Social History Tobacco Use Types Packs/Day Years Used Date Smoking Tobacco: Former Cigarettes 0.5 50 S tarted: 1974 Smokeless Tobacco: Never [facility] Utilities Answer Date Recorded In the past 12 months has [employer] electric, gas, oil, or water company threatened [...] week 10/24/2023 How often do you attend [facility] or synagogue services? Never 10/24/2023 Do you belong to any clubs o r organizations such as anabaptist groups, unions, fraternal or athletic groups, or [...] place to sleep or slept in a m[facility]p (including now)? No 10/24/2023 Personal Safety Answer Date Recorded Have you ever been in or are you currently in a harmful physical or emotional relationship or is someone making you feel afraid or unsafe? 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 Gender Identity Not on file Sexual Orientation Not on file documented as of this encounter Last Filed Vital Signs Vital Sign Reading Time Taken Comments Blood Pressure 132/72 04/09/2024 10:06 AM CDT Pulse 64 04/09/2024 10:06 AM CDT Temperature - - Respiratory Rate - - Oxygen Saturation 99% 04/09/2024 10: 06 AM CDT Inhaled Oxygen Concentration - - Weight 84.3 kg (185 lb 14.4 oz) 024 10:06 AM CDT Height 182.9 cm (6') 04/09/2024 10:06 AM CDT Body Mass Index 25.21 04/09/2024 10:06 AM CDT documented in this encounter Progress Notes * Karen Benjamin MD - 04/09/2024 10:30 AM CDT [facility] CHIEF COMPLAINT Chief Complaint Patient presents with Follow-up 8 mo f/u Hypertension Mild HPI Meliton Delacruz is a 84 y.o. male with past medical history of hypertension, diabetes, hyperlipidemia, GERD, he woke up at 1 night feeling central chest discomfort and leg hurting. Denies radiation, pain described as t No recurrence after that. Denied palpitations, dizziness, shortness of breath, syncope. He has chronic swelling of the right ankle when he had right ankle fracture surgery. Denies tobacco use, he quit smoking long time ago. Drinks couple coffee cups each day denies tea. He drinks 1soda per day which is Pepsi. He describes that his dad had myocardial infarction at age 72 and his sister had CABG at age 76. 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 Troponin was negative x2. Sodium was 127, potassium 3.5, he was treated for a UTI. He was found to have a distended bladder and had a urinary catheter placed. Sodium improved to 130. He returns to the office today accompanied by his . He still has a catheter in place. He had an office visit with Dr. Melendez earlier this week regarding iron deficiency anemia. He has follow-up with PCP tomorrow. He is had no further chest pain. His thinks the pressure from the distended bladder cause the epigastric pain and chest pain. 12-lead ECG performed in the office today was independently interpreted by me and showed sinus rhythm, normal axis and normal intervals 10/04/2022-returns for follow-up appointment accompanied by his . Gained 10 lb compared to lastvisit. Denies chest pain, shortness of breath, dizziness, syncope, lower extremity edema, orthopneaparoxysmal nocturnal dyspnea. He has stable lower extremity swelling because he suffered fracture in that leg in the past. Continues to have Ahumada catheter for urine retention. 04/08/2023-returns for for follow-up appointment. He is here accompanied by his . Denies chest pain, shortness of breath, dizziness, syncope, lower extremity edema. Was taken off HCTZ due to low sodium levels. 04/09/2024-returns for follow-up appointment accompanied by his . Was hospitalized at [facility] October 2023 for hyponatremia at that time was started on sodium pills and that madehuge difference for him. Denies chest pain, shortness of breath, dizziness, syncope, lower extremity edema MEDICAL HISTORY Past Medical History: Diagnosis Date Arthritis Enlarged prostate GERD (gastroesophageal reflux disease) Heart murmur High cholesterol HTN (hypertension) Type 2 diabetes mellitus (HCC) Past Surgical History: Procedure Laterality Date ANKLE FRACTURE SURGERY Right x 2 CHOLECYSTECTOMY Social History Tobacco Use Smoking status: Former Smoker Packs/day: 0.50 Years: 24.00 Pack years: 12.00 Types: Cigarettes Start date: 1974 Smokeless tobacco: Never Used Vaping Use Vaping Use: Never used Family History Problem Relation Age of Onset Cancer Mother Stroke Father Heart attack Father Heart disease Other Stroke Other MEDICATIONS HOME MEDICATIONS : amLODIPine-benazepriL (LOTREL) 10-20 mg per capsule ascorbic acid (ascorbic acid with brenda hips) 500 mg tablet,chewable atorvastatin (LIPITOR) 10 mg tablet cyanocobalamin (Vitamin B-12) 1,000 mcg tablet ferrous sulfate 325 mg (65 mg of elemental iron) tablet finasteride (PROSCAR) 5 mg tablet fluticasone propionate (FLONASE) 50 mcg/actuation nasal spray metFORMIN (GLUCOPHAGE) 500 mg tablet vfpkjjpfphfe-bfowlbrt-dvkbkj (Multivitamin 50 Plus) tablet omeprazole (PriLOSEC) 20 mg capsule polyethylene glycol (MIRALAX) 17 gram packet sodium chloride 1 gram tablet ALLERGIES Allergies Allergen Reactions Adhesive Tape-Silicones Rash Sulfa (Sulfonamide Antibiotics) Unknown REVIEW OF SYSTEMS Review of Systems Constitutional: Negative for chills, fever and malaise/fatigue. HENT: Negative for congestion and sore throat. Eyes: Negative for blurred vision and double vision. Cardiovascular: Negative for chest pain, claudication, dyspnea on exertion, leg swelling, near-syncope, orthopnea, palpitations, paroxysmal nocturnal dyspnea and syncope. Respiratory: Negative for cough, hemoptysis, shortness of breath, snoring, sputum production and wheezing. Endocrine: Negative for cold intolerance and polyuria. Hematologic/Lymphatic: Negative for bleeding problem. Does not bruise/bleed easily. Skin: Negative for itching and rash. Musculoskeletal: Negative for back pain, joint pain and joint swelling. Gastrointestinal: Negative for abdominal pain, diarrhea, nausea and vomiting. Genitourinary: Negative for dysuria, frequency and hematuria. Neurological: Negative for focal weakness, headaches and light-headedness. Psychiatric/Behavioral: Negative for depression. The patient is not nervous/anxious. Allergic/Immunologic: Negative for environmental allergies and hives. PHYSICAL EXAM Vitals BP 132/72 (BP Location: Left arm, Patient Position: Sitting) Pulse 64 Ht 182.9 cm (6') Wt 84.3 kg (185 lb 14.4 oz) SpO2 99% BMI 25.21 kg/m?? Body mass index is 25.21 kg/m??. Physical Exam Constitutional: General: He is not in acute distress. Appearance: He is well-developed. HENT: Head: Normocephalic and atraumatic. Right Ear: External ear normal. Left Ear: External ear normal. Eyes: General: No scleral icterus. Left eye: No discharge. Conjunctiva/sclera: Conjunctivae normal. Neck: Thyroid: No thyromegaly. Cardiovascular: Rate and Rhythm: Normal rate and regular rhythm. Heart sounds: Normal heart sounds. No murmur heard. No friction rub. No gallop. Pulmonary: Effort: Pulmonary effort is normal. No respiratory distress. Breath sounds: Normal breath sounds. No wheezing or rales. Chest: Chest wall: No tenderness. Abdominal: General: There is no distension. Palpations: Abdomen is soft. There is no mass. Tenderness: There is no abdominal tenderness. Musculoskeletal: General: No tenderness or deformity. Cervical back: Normal range of motion and neck supple. Right lower leg: Edema present. Left lower leg: No edema. Comments: Mild swelling right lower extremity (had fracture in that leg) Skin: General: Skin is warm. Findings: No erythema or rash. Neurological: Mental Status: He is alert and oriented to person, place, and time. Cranial Nerves: No cranial nerve deficit. Motor: No abnormal muscle tone. Psychiatric: Mood and Affect: Mood normal. LABS AND OTHER DIAGNOSTIC TESTS Lab Results Component Value Date WBC 7.3 10/27/2023 HGB 11.4 (L) 10/27/2023 HCT 33.7 (L) 10/27/2023 MCV 86.9 10/27/2023 Chemistry Component Value Date/Time SODIUM 130 (L) 10/27/2023 0855 POTASSIUM 4.4 10/27/2023 0855 CHLORIDE 96 (L) 10/27/2023 0855 CO2 23 10/27/2023 0855 BUNSER 13 10/27/2023 0855 CREATININE 0.70 (L) 10/27/2023 0855 GLUCOSE 101 10/27/2023 1248 GLUCOSE 129 10/27/2023 0855 Component Value Date/Time CALCIUM 8.6 10/27/2023 0855 ALKPHOS 99 10/24/2023 0746 AST 16 10/24/2023 0746 ALT 14 10/24/2023 0746 BILITOT 0.5 10/24/2023 0746 Lexiscan stress test September 21, 2021. Global left ventricular function is normal. Left ventricular ejection fraction is 58 %. Myocardial perfusion imaging is normal. There is an inferior/inferolateral defect which likely correlates to gut attenuation. Negative EKG portion of stress test. EK/04/2022-sinus rhythm, T-wave abnormalities involving V2 to V6, consider ischemia Echo September 2021. Normal left ventricular systolic function. No focal wall motion abnormalities. Normal left ventricular size. Mild concentric left ventricular hypertrophy. Impaired diastolic relaxation Grade I. Ejection fraction is measured at 61 %. There is mild enlargement of left atrium. Mild mitral valve regurgitation. Mild aortic stenosis. Peak gradient of 24.0 mmHg. Mean gradient of 8.0 mmHg. Valve area of 1.69 cm2. Aortic cusps appear mildly calcified. Probable trileaflet aortic valve, although not all leaflets are visualized. Trace aortic valve regurgitation. Estimated peak RVSP is 42 mmHg. Mild tricuspid regurgitation. Sinus of Valsalva is normal. Ascending aorta is mildly dilated. Ascending Aorta 4.0 cm CTA chest August 05, 2021 no pulmonary embolus. Ectasia of the ascending aorta measuring 4.4 cm ASSESSMENT Diagnoses and all orders for this visit: Hypertension associated with diabetes (HCC) (Primary) Hyperlipidemia associated with type 2 diabetes mellitus (HCC) Nonrheumatic aortic valve stenosis Aneurysm of ascending aorta without rupture (HCC) PLAN/RECOMMENDATIONS In regards to chest pain, he underwent Lexiscan stress test 2021 that appeared to be unremarkable for ischemia. No recurrence of chest pain. At this time will continue to observe and monitor patient. -in regards to hypertension, blood pressure is well controlled. Blood pressure today 132/72.. Continue amlodipine, benazepril. HCTZ was discontinued due to low sodium. In regards to hyponatremia, could continue sodium tablets. Last blood work done March 2024 showedsodium 132. -in regards to hyperlipidemia, controlled continue atorvastatin 10 mg daily -in regards to ascending aorta aneurysm measuring 4.[address] scan July 2021, will monitor. It ismild dilatation. Apparently patient had repeat CT scan at [facility] February 11, 2022 and reported stable ectasia of the ascending aorta measuring 4.[address] scan done April 07, 2024 shows 4.4 cm -in regards to aortic stenosis appears to be mild with aortic valve area 1.7 cm2 and mean gradient 8 mm Hg. Follow up in the office in in 1 year. Karen Benjamin MD documented in this encounter Plan of Treatment Not on file documented as of this encounter Visit Diagnoses Diagnosis Hypertension associated with diabetes (HCC)- Primary Unspecified essential hypertension Hyperlipidemia associated with type 2 diabetes mellitus (HCC) Nonrheumatic aortic valve stenosis Aneurysm of ascending aorta without rupture (HCC) documented in this encounter Care Teams Criminal Justice Program Director Relationship Specialty Start Date End Date Meliton Washburn MD PCP - General Family Medicine 04/01/22 documented as of this encounter
--- OUTSIDE RECORDS SUMMARY | 2024-06-06 22:14 | XMS_ITS | Encounter Summary ---
Author Organization [facility] Healthcare Address [address] [place] [address] Care Team Providers Care High Court Justice Name Role Phone Meliton Washburn MD Primary Care Provider [phone] Encounter Details Date Type Department Care Team (Late st Contact Info) Description 03/20/2024 Orders Only [facility] Medical Group Nephrology at [address] [place] [address] ProviderChrist MD [address] [place] [id number] Social History Tobacco Use Types Packs/Day Years Used Date Smoking Tobacco: Former Cigarettes 0.5 50 S tarted: 1975 Smokeless Tobacco: Never [facility] Utilities Answer Date Recorded In the past 12 months has e electric, gas, oil, or water company [...] often do you attend chur ch or samaritan services? Never 10/24/2023 Do you belong to any clubs o r organizations such as orthodoxy groups, unions, fraternal or athletic groups, or [...] place to sleep or slept in a intermediate (including now)? No 10/24/2023 Personal Safety Answer Date Recorded Have you ever been in or are you currently in a harmful physical or emotional relationship or is someone making you feel afraid or unsafe? 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 Gender Identity Not on file Sexual Orientation Not on file documented as of this encounter Plan of Treatment Not on file documented as of this encounter Procedures Procedure Name Priority Date/Time Associated Diagnosis Comments RENAL FUNCTION PANEL Routine 03/20/2024 5:01 PM CDT documented in this encounter Results * Renal function panel (03/20/2024 5:01 PM CDT) Blood us Historical Provider LAB BLOOD ORDERABLES Adeline l Result EXTERNAL LAB documented in this encounter Visit Diagnoses Not on filedocumented in this encounter Care Teams High [address] Justice Relationship Specialty Start Date End Date Meliton Washburn MD PCP - General Family Medicine 04/01/22 documented as of this encounter
--- OUTSIDE RECORDS SUMMARY | 2024-06-06 22:14 | XMS_ITS | Encounter Summary ---
Author Organization [facility] Healthcare Address [address] [place] [address] Care Team Providers Care Fertilizer Loader Name Role Phone Meliton Washburn MD Primary Care Provider [phone] Encounter Details Date Type Department Care Team (Late st Contact Info) Description 03/21/2024 Telephone [facility] Medical Group Nephrology at [address] [place] [address] Sourav Park MD [address] [place] [address] [address] [place] [address] Social History Tobacco Use Types Packs/Day Years Used Date Smoking Tobacco: Former Cigarettes 0.5 50 S tarted: 1975 Smokeless Tobacco: Never [facility] Utilities Answer Date Recorded In the past 12 months has [employer] electric, gas, oil, or water company threatened [...] often do you attend chur ch or taoist services? Never 10/24/2023 Do you belong to any clubs o r organizations such as synagogue groups, unions, fraternal or athletic groups, or [...] place to sleep or slept in a usp (including now)? No 10/24/2023 Personal Safety Answer Date Recorded Have you ever been in or are you currently in a harmful physical or emotional relationship or is someone making you feel afraid or unsafe? 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 They were informed and verbalized understanding. Patient's has the orders from December that she is able to take to any lab of their choosing and will note it on the calendar for pt to repeat lab work prior to appt on 06/27/23. * Telephone Encounter - Margarita Owusu MA - 03/23/2024 11:20 AM CDT LVM for pt to call the office back regarding results. * Telephone Encounter - Sourav Park MD - 03/21/2024 12:01 PM CDT Review of labs from [facility] reported on 03/20/2024 Sodium 132, potassium 4.1, bicarbonate 26, chloride 95, BUN 12, creatinine 0.7, estimated GFR more than 60, glucose 104, calcium 8.7, phosphorus 3.6 and albumin 4.0. 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 Continue 48 oz per day fluid restriction and sodium chloride tablets as previously prescribed. Get a renal function panel in 2-3 months/1 week before next follow-up. documented in this encounter Plan of Treatment Not on file documented as of this encounter Visit Diagnoses Not on filedocumented in this encounter Care Teams Fertilizer Loader Relationship Specialty Start Date End Date Meliton Washburn MD PCP - General Family Medicine 04/01/22 documented as of this encounter
--- OUTSIDE RECORDS SUMMARY | 2024-06-06 22:14 | XMS_ITS | Encounter Summary ---
Author Organization [facility] Healthcare Address [address] [place] [id number] Care Team Providers Care Animal Groomer Name Role Phone Meliton Washburn MD Primary Care Provider +1 [phone] Reason for Visit * Reason Comments Abnormal Sodium Hospital f/u Encounter Details Date Type Department Care Team (Late st Contact Info) Description 12/21/2023 2:45 PM CDT Office Visit [facility] Medical Group Nephrology at [address] [place] [phone] Sourav Park MD [address] [place] [address] [address] Hyponatremia (Primary Dx) Social History Tobacco Use Types Packs/Day Years Used Date Smoking Tobacco: Former Cigarettes 0.5 50 S tarted: 1975 Smokeless Tobacco: Never Tobacco Cessation:Counseling Given: Not Answered [facility] Utilities Answer Date Recorded In the past 12 months has [employer], [employer], or [employer] threatened to shut off services in your [...] 10/24/2023 How often do you attend chur or confucianism services? Never 10/24/2023 Do you belong to any clubs o r organizations such as jehovah's witness groups, unions, fraternal or athletic groups, or [...] place to sleep or slept in a halfway (including now)? No 10/24/2023 Personal Safety Answer Date Recorded Have you ever been in or are you currently in a harmful physical or emotional relationship or is someone making you feel afraid or unsafe? 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 Subjective/Objective Patient ID: Meliton Delacruz is a 83 y.o. male. Chief Complaint Abnormal Sodium (Hospital f/u/) HPI 83-year-old man who we recently saw in the hospital for hyponatremia. He has a past medical history of iron-deficiency anemia, hypertension, type 2 diabetes mellitus, BPH, GERD, urinary retention, osteoarthritis, hyperlipidemia, GERD. He would prior history of being on hydrochlorothiazide which was previously discontinued but urine studies in the hospital showed urine sodium of 40 with urine osmolality of 136 and urine chloride of25. Initially he got some IV fluids and his serum sodium improved however got worse again. Subsequently he received a dose of tolvaptan with improved serum sodium. He was placed on a fluid restriction and also put on sodium chloride tablets which he was discharged on. Check of labs subsequently revealed improvement in his serum sodium and currently at normal level at the lower end of the range. He denies any chest pain, shortness of breath, fever, chills, nausea, vomiting, diarrhea. He is eating well. He has maintaining a 48 oz per day fluid 2D echo in 2021 with normal ejection fraction and grade 1 diastolic dysfunction. Review of labs from 12/14/2023: Sodium 135, potassium 4.3, bicarbonate 28, creatinine 0.7, estimated GFR more than 60, phosphorus 3.1, albumin 3.9. This lab was done at [facility] and is underthe media section of chart review Review of Systems Constitutional: Negative for appetite change and fatigue. HENT: Negative. Eyes: Negative. Respiratory: Negative for cough, chest tightness and shortness of breath. Cardiovascular: Negative for chest pain, palpitations and leg swelling. Gastrointestinal: Negative for abdominal pain and nausea. Endocrine: Negative for polydipsia and polyuria. Genitourinary: Negative for decreased urine volume, difficulty urinating, dysuria, flank pain, frequency, hematuria and urgency. Musculoskeletal: Negative for joint swelling and myalgias. Skin: Negative for color change and rash. Allergic/Immunologic: Negative. Neurological: Negative for dizziness, weakness and light-headedness. Hematological: Negative. Psychiatric/Behavioral: Negative. Current Outpatient Medications Medication Sig Dispense Refill amLODIPine-benazepriL (LOTREL) 10-20 mg per capsule Take 1 capsule by mouth daily ascorbic acid (ascorbic acid with brenda hips) 500 mg tablet,chewable daily atorvastatin (LIPITOR) 10 mg tablet cyanocobalamin (Vitamin B-12) 1,000 mcg tablet Take 1 tablet (1,000 mcg total) by mouth daily ferrous sulfate 325 mg (65 mg of elemental iron) tablet Take 1 tablet (325 mg total) by mouth dailywith breakfast finasteride (PROSCAR) 5 mg tablet Take 1 tablet (5 mg total) by mouth daily fluticasone propionate (FLONASE) 50 mcg/actuation nasal spray Administer 1 spray into each nostril daily metFORMIN (GLUCOPHAGE) 500 mg tablet Take 1 tablet (500 mg total) by mouth 2 (two) times a day owxrehssaeaj-vemoxlwe-drkrlw (Multivitamin 50 Plus) tablet Take by mouth daily omeprazole (PriLOSEC) 20 mg capsule Take 1 capsule (20 mg total) by mouth daily polyethylene glycol (MIRALAX) 17 gram packet Take 1 packet (17 g total) by mouth daily sodium chloride 1 gram tablet Take 1 tablet (1 g total) by mouth 3 (three) times a day 270 tablet 3 No current facility-administered medications for this visit. Allergies Allergen Reactions Sulfa (Sulfonamide Antibiotics) Unknown Vitals BP 156/72 (BP Location: Right arm, Patient Position: Sitting) Pulse 73 Ht 182.9 cm (6') Wt 82.1 kg (181 lb) BMI 24.55 kg/m?? Physical Exam Constitutional: Appears well-developed and well-nourished. Head: Normocephalic and atraumatic. Eyes: EOM are normal. Neck: Normal range of motion. Cardiovascular: Normal rate and regular rhythm. Pulmonary/Chest: Effort normal and breath sounds normal. Abdominal: Soft. Bowel sounds are normal. Musculoskeletal: Normal range of motion. No edema. Neurological: Alert and oriented to person, place, and time. Skin: Skin is warm and dry. Psychiatric: Normal mood and affect. 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 He should not take any thiazide or thiazide type diuretics anymore. Additionally maintain a 48 oz per day fluid restriction and liberal sodium diet. He will continue sodium chloride tablets as currently prescribed. We discussed the need to continue this indefinitely given long-term history of hyponatremia. Additionally discussed the risks of hyponatremia and the importance of checking his labs as ordered. Net Repairer completed by using [employer] Fluency Direct speaking software, therefore, transcriptionvariances may occur Sourav Park MD [facility] Medical Group [facility] Nephrology and Hypertension Office: [phone] documented in this encounter Plan of Treatment Scheduled Orders Name Type Priority Associated Diagnoses Orde r Schedule Renal function panel Lab Routine Hyponatremia 3 Occurrences starting 12/21/2023 until 12/20/2024 documented as of this encounter Visit Diagnoses Diagnosis Hyponatremia- Primary Hyposmolality and/or hyponatremia documented in this encounter Discontinued Medications Medication Sig Discontinue Reason Start Date End Da te ALPRAZolam (XANAX) 0.25 mg tablet Take 1 tablet (0.25 mg total) by mouth 3 (three) times a day as needed for anxiety 12/21/2023 cetirizine (ZyrTEC) 10 mg tablet Take 1 tablet (10 mg total) by mouth daily 12/21/2023 sertraline (ZOLOFT) 50 mg tablet Take 1 tablet (50 mg total) by mouth daily 09/26/2023 12/21/2023 documented as of this encounter Historical Medications * This list may reflect changes made after this encounter. polyethylene glycol (MIRALAX) 17 gram packetIndications :constipation Take 1 packet (17 g total) by mouth daily cyanocobalamin (Vitamin B-12) 1,000 mcg tabletIndications :Prevention of Vitamin B12 Deficiency Take 1 tablet (1,000 mcg total) by mouth daily ascorbic acid (ascorbic acid with brenda hips) 500 mg tablet,chewable daily added in this encounter Care Teams Animal Groomer Relationship Specialty Start Date End Date Meliton Washburn MD PCP - General Family Medicine 04/01/22 documented as of this encounter
--- OUTSIDE RECORDS SUMMARY | 2024-06-06 22:14 | XMS_ITS | Encounter Summary ---
Author Organization [facility] Healthcare Address [address] [place] [address] Care Team Providers Care Vocal Artist Name Role Phone Meliton Washburn MD Primary Care Provider [phone] [phone] Encounter Details Date Type Department Care Team (Late st Contact Info) Description 12/20/[address] [facility] Medical Group Nephrology at [address] [place] [address] Sourav Park MD [address] [place] [address] [address] [place] [address] Social History Tobacco Use Types Packs/Day Years Used Date Smoking Tobacco: Former Cigarettes 0.5 50 S tarted: 1975 Smokeless Tobacco: Never [facility] Utilities Answer Date Recorded In the past 12 months has [employer] electric, gas, oil, or water company threatened [...] often do you attend chur ch or congregational services? Never 10/24/2023 Do you belong to any clubs o r organizations such as quaker groups, unions, fraternal or athletic groups, or [...] place to sleep or slept in a penitentiary (including now)? No 10/24/2023 Personal Safety Answer Date Recorded Have you ever been in or are you currently in a harmful physical or emotional relationship or is someone making you feel afraid or unsafe? 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
--- OUTSIDE RECORDS SUMMARY | 2024-06-06 22:14 | XMS_ITS | Encounter Summary ---
Author Organization [facility] Healthcare Address [address] [place] [address] Care Team Providers Care Patcher Helper Name Role Phone Meliton Washburn MD Primary Care Provider [phone] [phone] Reason for Visit * Reason Onset Date Comments CTA order 04/06/2024 Encounter Details Date Type Department Care Team (Late st Contact Info) Description 04/06/2024 Telephone [facility] Medical Group Cardiology [address] [place] [address] Karen Benjamin MD [address] [address] CTA order Social History Tobacco Use Types Packs/Day Years Used Date Smoking Tobacco: Former Cigarettes 0.5 50 S tarted: 1975 Smokeless Tobacco: Never [facility] Utilities Answer Date Recorded In the past 12 months has [employer] electric, gas, oil, or water company [...] often do you attend chur ch or caodaism services? Never 10/24/2023 Do you belong to any clubs o r organizations such as religion groups, unions, fraternal or athletic groups, or [...] place to sleep or slept in a snf (including now)? No 10/24/2023 Personal Safety Answer Date Recorded Have you ever been in or are you currently in a harmful physical or emotional relationship or is someone making you feel afraid or unsafe? 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 * Telephone Encounter - Beatriz Rooney - 04/06/2024 9:42 AM CDT Nancy from scheduling calling in regard to CTA chest w/contrast ordered by on 04/08/2023. Patient is scheduled for the procedure on 04/07/2024 @ 10:30 am at . They are requesting that a copyof the order be faxed to them today. Please advise. Thank you. documented in this encounter Plan of Treatment Not on file documented as of this encounter Visit Diagnoses Not on filedocumented in this encounter Care Teams Patcher Helper Relationship Specialty Start Date End Date Meliton Washburn MD PCP - General Family Medicine 04/01/22 documented as of this encounter
--- OUTSIDE RECORDS SUMMARY | 2024-06-06 22:15 | XMS_ITS | Encounter Summary ---
Author Organization [facility] Healthcare Address [address] [place] [address] Care Team Providers Care Sandwich Maker Name Role Phone Meliton Washburn MD Primary Care Provider [phone] [phone] Encounter Details Date Type Department Care Team (Late st Contact Info) Description 11/11/2023 Telephone [facility] Medical Group Nephrology at [address] [place] [address] Sourav Park MD [address] [place] [address] [address] [place] [address] Social History Tobacco Use Types Packs/Day Years Used Date Smoking Tobacco: Former Cigarettes 0.5 50 S tarted: 1975 Smokeless Tobacco: Never [facility] Utilities Answer Date Recorded In the past 12 months has [employer] electric, gas, oil, or water company threatened [...] often do you attend chur ch or anglican services? Never 10/24/2023 Do you belong to any clubs o r organizations such as islam groups, unions, fraternal or athletic groups, or school groups? No 10/24/2023 How often do you attend meet ings of the clubs or organizations you belong to? Never 10/24/2023 Are you , , di vorced, , never , or living with a partner? 10/24/2023 AUDIT-C Answer Date Recorded Q1: How often do you have a drink containing alcohol? Never 10/23/2023 Q2: How many drinks containi ng alcohol do you have on a typical day when you are drinking? Patient does not drink Q3: How often do you have si x or more drinks on one occasion? Never 10/23/2023 Overall Financial Resource Strain (CARDIA) Answe r [...] place to sleep or slept in a long-term (including now)? No 10/24/2023 Personal Safety Answer Date Recorded Have you ever been in or are you currently in a harmful physical or emotional relationship or is someone making you feel afraid or unsafe? 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 Sex Male 3:39 PM BELL STAFF Gender Identity Not on file Sexual Orientation Not on file documented as of this encounter Ordered Prescriptions Prescription Sig Dispense Quantity Refills Last Filled Start Date End Date sodium chloride 1 gram tablet Take 1 tablet (1 g total) by mouth 3 (three) times a day 270 tablet 3 11/16/2023 11/15/2024 documented in this encounter Miscellaneous Notes * Addendum Note - Dejon Saavedra MA - 11/16/2023 10:40 AM CDTAddended by: DEJON SAAVEDRA on: 11/16/2023 10:40 AM Modules accepted: Orders * Telephone Encounter - Dejon Saavedra MA - 11/16/2023 10:39 AM CDT Spoke with pt's Fani about therapy plan. She verbalized understanding and requested Rx be sent to [facility] in [place] on [address]. * Telephone Encounter - Sourav Park MD - 11/11/2023 3:40 PM CDT Serum sodium 135. Continue current plan. Fluid restriction of 48 oz per day. Sodium chloride 1 g 3 times a day. documented in this encounter Plan of Treatment Not on file documented as of this encounter Visit Diagnoses Not on filedocumented in this encounter Discontinued Medications Medication Sig Discontinue Reason Start Date End Da te sodium chloride 1,000 mg tablet Take 1 tablet (1 g total) by mouth 3 (three) times a day Reorder 10/27/2023 11/16/2023 documented as of this encounter Care Teams Sandwich Maker Relationship Specialty Start Date End Date Meliton Washburn MD PCP - General Family Medicine 04/01/22 documented as of this encounter
--- OUTSIDE RECORDS SUMMARY | 2024-06-06 22:15 | XMS_ITS | Encounter Summary ---
Author Organization [facility] Healthcare Address [address] [place] [address] Care Team Providers Care Pet Care Attendant Name Role Phone Meliton Washburn MD Primary Care Provider [phone] [phone] Encounter Details Date Type Department Care Team (Late st Contact Info) Description 11/11/2023 Telephone [facility] Medical Group Nephrology at [address] [place] [address] Sourav Park MD [address] [place] [address] [address] [place] [address] Social History Tobacco Use Types Packs/Day Years Used Date Smoking Tobacco: Former Cigarettes 0.5 50 S tarted: 1975 Smokeless Tobacco: Never [facility] Utilities Answer Date Recorded In the past 12 months has [employer] electric, gas, oil, or water company threatened [...] often do you attend chur ch or hindu services? 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 Dr. Park said continue fluid restriction of 48 oz. Per day, continue sodium chloride 1 gm three times daily, and recheck renal panel before his follow up inJuly. Lab orders mailed to pt. documented in this encounter Plan of Treatment Scheduled Orders Name Type Priority Associated Diagnoses Orde r Schedule Renal function panel Lab Routine Hyponatremia Expected: 12/12/2023, Expires: 11/10/2024 documented as of this encounter Visit Diagnoses Diagnosis Hyponatremia- Primary Hyposmolality and/or hyponatremia documented in this encounter Care Teams Pet Care Attendant Relationship Specialty Start Date End Date Meliton Washburn MD PCP - General Family Medicine 04/01/22 documented as of this encounter
--- OUTSIDE RECORDS SUMMARY | 2024-06-06 22:15 | XMS_ITS | Encounter Summary ---
Author Organization [facility] Healthcare Address [address] [place] [address] Care Team Providers Care Telecommunications Support Name Role Phone Meliton Washburn MD Primary Care Provider [phone] [phone] Encounter Details Date Type Department Care Team (Late st Contact Info) Description 12/15/2023 Orders Only [facility] Medical Group Nephrology at [address] [place] [address] ProviderChrist MD [address] [place] [address] Social History Tobacco Use Types Packs/Day Years Used Date Smoking Tobacco: Former Cigarettes 0.5 50 S tarted: 1975 Smokeless Tobacco: Never [facility] Utilities Answer Date Recorded In [...] often do you attend chur ch or orthodox services? Never 10/24/2023 Do you belong to [...] place to sleep or slept in a [place] (including now)? No 10/24/2023 Personal Safety Answer Date Recorded Have you ever been in or are you currently in a harmful physical or emotional relationship or is someone making you feel afraid or unsafe? 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 Sex Male 3:39 PM PLASTICS PATTERNMAKER Gender Identity Not on file Sexual Orientation Not on file documented as of this encounter Plan of Treatment Not on file documented as of this encounter Procedures Procedure Name Priority Date/Time Associated Diagnosis Comments RENAL FUNCTION PANEL Routine 12/14/2023 8:29 AM CDT documented in this encounter Results * Renal function panel (12/14/2023 8:29 AM CDT) Blood us Historical Provider LAB BLOOD ORDERABLES Adeline l Result EXTERNAL LAB documented in this encounter Visit Diagnoses Not on filedocumented in this encounter Care Teams Telecommunications Support Relationship Specialty Start Date End Date Meliton Washburn MD PCP - General Family Medicine 04/01/22 documented as of this encounter
--- OUTSIDE RECORDS SUMMARY | 2024-06-06 22:16 | XMS_ITS | Encounter Summary ---
Author Organization [facility] Healthcare Address [address] [place] [address] Care Team Providers Care Self Defense Instructor Name Role Phone Meliton Washburn MD Primary Care Provider [phone] [phone] Encounter Details Date Type Department Care Team (Late st Contact Info) Description 10/27/2023 Telephone [facility] Medical Group Nephrology at [address] [place] [address] Sourav Park MD [address] [place] [address] [address] Social History Tobacco Use Types Packs/Day Years Used Date Smoking Tobacco: Former Cigarettes 0.5 50 S tarted: 1975 Smokeless Tobacco: Never [facility] Utilities Answer Date Recorded In the past 12 months has [employer] electric, gas, oil, or water company threatened [...] often do you attend chur ch or latter-day services? Never 10/24/2023 Do you belong to any clubs o r organizations such as pentecostal groups, unions, fraternal or athletic groups, or [...] place to sleep or slept in a prison (including now)? No 10/24/2023 Personal Safety Answer Date Recorded Have you ever been in or are you currently in a harmful physical or emotional relationship or is someone making you feel afraid or unsafe? 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 Lab orders mailed to pt, as he wasn't 100% sure of the name of the lab he goes to. Pt will have his call us back to schedule is follow up appt. * Telephone Encounter - Sourav Park MD - 10/27/2023 10:40 AM CDT Likely to be discharged from [facility] today or tomorrow. Please arrange outpatient renal function panel in the next 1 week or so. Follow-up in 4 weeks. documented in this encounter Plan of Treatment Scheduled Orders Name Type Priority Associated Diagnoses Orde r Schedule Renal function panel Lab Routine Hyponatremia Hypertension associated with diabetes (HCC) Expected: 10/31/2023, Expires: 10/27/2024 documented as of this encounter Visit Diagnoses Diagnosis Hyponatremia- Primary Hyposmolality and/or hyponatremia Hypertension associated with diabetes (HCC) Unspecified essential hypertension documented in this encounter Care Teams Self Defense Instructor Relationship Specialty Start Date End Date Meliton Washburn MD PCP - General Family Medicine 04/01/22 documented as of this encounter
--- OUTSIDE RECORDS SUMMARY | 2024-06-06 22:16 | XMS_ITS | Encounter Summary ---
Author Organization [facility] Healthcare Address [address] [place] [address] Care Team Providers Care Print And Pattern Designer Name Role Phone Meliton Washburn MD Primary Care Provider [phone] Encounter Details Date Type Department Care Team (Late st Contact Info) Description 11/10/2023 Orders Only [facility] Medical Group Nephrology at [address] [place] [address] ProviderChrist MD [address] [place] [id number] Social History Tobacco Use Types Packs/Day Years Used Date Smoking Tobacco: Former Cigarettes 0.5 50 S tarted: 1975 Smokeless Tobacco: Never [facility] Utilities Answer Date Recorded In the [...] often do you attend chur ch or gnosticist services? 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 Gender Identity Not on file Sexual Orientation Not on file documented as of this encounter Plan of Treatment Not on file documented as of this encounter Procedures Procedure Name Priority Date/Time Associated Diagnosis Comments RENAL FUNCTION PANEL Routine 11/09/2023 5:45 PM CDT documented in this encounter Results * Renal function panel (11/09/2023 5:45 PM CDT) Blood us Historical Provider LAB BLOOD ORDERABLES Adeline l Result EXTERNAL LAB documented in this encounter Visit Diagnoses Not on filedocumented in this encounter Care Teams Print And Pattern Designer Relationship Specialty Start Date End Date Meliton Washburn MD PCP - General Family Medicine 04/01/22 documented as of this encounter
--- OUTSIDE RECORDS SUMMARY | 2024-06-06 22:16 | XMS_ITS | Encounter Summary ---
Author Organization [facility] Healthcare Address [address] [place] [address] Care Team Providers Care Dental Receptionist Name Role Phone Meliton Washburn MD Primary Care Provider [phone] Encounter Details Date Type Department Care Team (Late st Contact Info) Description 11/11/2023 Orders Only [facility] Medical Group Nephrology at [address] [place] [address] ProviderChrist MD [address] [place] [id number] Social History Tobacco Use Types Packs/Day Years Used Date Smoking Tobacco: Former Cigarettes 0.5 50 S tarted: 1975 Smokeless Tobacco: Never [facility] Utilities Answer Date Recorded In the past [...] any clubs o r organizations such as druze groups, unions, fraternal or athletic groups, or [...] place to sleep or slept in a detention (including now)? No 10/24/2023 Personal Safety Answer Date Recorded Have you ever been in or are you currently in a harmful physical or emotional relationship or is someone making you feel afraid or unsafe? 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 Gender Identity Not on file Sexual Orientation Not on file documented as of this encounter Plan of Treatment Not on file documented as of this encounter Procedures Procedure Name Priority Date/Time Associated Diagnosis Comments BASIC METABOLIC PANEL Routine 11/09/2023 3:19 PM CDT documented in this encounter Results * Basic metabolic panel (11/09/2023 3:19 PM CDT) Blood us Historical Provider LAB BLOOD ORDERABLES Adeline l Result documented in this encounter Visit Diagnoses Not on filedocumented in this encounter Care Teams Dental Receptionist Relationship Specialty Start Date End Date Meliton Washburn MD PCP - General Family Medicine 04/01/22 documented as of this encounter
--- OUTSIDE RECORDS SUMMARY | 2024-06-06 22:17 | XMS_ITS | Encounter Summary ---
Author Organization [facility] Healthcare Address [address] [place] [address] Care Team Providers Care Drilling Inspector Name Role Phone Meliton Washburn MD Primary Care Provider [phone] Encounter Details Date Type Department Care Team (Late st Contact Info) Description 08/03/2023 Telephone [facility] Medical Group Cardiology [address] [place] [address] Karen Benjamin MD [address] [place] [address] Social History Tobacco Use Types Packs/Day Years Used Date Smoking Tobacco: Former Cigarettes 0.5 50 S tarted: 1975 Smokeless Tobacco: Never Personal Safety Answer Date Recorded Getting School Help Needed Not on file 06/24 Sex and Gender Information Value Date Recorded Sex Assigned at Not on file 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 The monitor (phone) was accidentally put in the washing machine. Advised her to contact [facility] when the new one arrives and they will walk her through the activation process and let her know how long the monitor will be extended. She voiced understanding. BROTHER * Telephone Encounter - Lydia Rendon - 08/03/2023 10:44 AM CST Pt spouse reports pt got his heart monitor wet. Pt will be having another monitor sent to him although pt spouse would like to discuss how long he should repeat process of wearing monitor. Requestinga call back to further discuss. Contact:[phone] BROTHER documented in this encounter Plan of Treatment Not on file documented as of this encounter Visit Diagnoses Not on filedocumented in this encounter Care Teams Drilling Inspector Relationship Specialty Start Date End Date Meliton Washburn MD PCP - General Family Medicine 04/01/22 documented as of this encounter
--- OUTSIDE RECORDS SUMMARY | 2024-06-06 22:17 | XMS_ITS | Encounter Summary ---
Author Organization [facility] Address [address] [place] [id number] Care Team Providers Care Enterprise Engineer Name Role Phone Meliton Washburn MD Primary Care Provider [phone] Reason for Visit * Reason Comments Fatigue * Auth/Cert (Routine) Specialty Diagnoses / Procedures Referred By Contac t Referred To Contact Diagnoses Hyponatremia Generalized weakness Urinary tract infection associated with catheterization of urinary tract, unspecified indwelling urinary catheter type, initial encounter (HCC) Hematuria, unspecified type Procedures na Referral ID Status Reason Start Date Expiration Date Visits Re quested Visits Authorized [id number] 1 1 Encounter Details Date Type Department Care Team (Latest Contact Info) Description 10/23/2023 5:32 PM CDT - 10/27/2023 2:35 PM CDT Hospital Encounter [facility] [address] Med [address] [place] [id number] Jacqui Charles MD [address] [place] [address] EMERGENCY DEPARTMENT [place], [place] [id number] Jaren Goyal MD [address] [place] [address] [place] [id number] Félix Patiño MD [address] [place] [address] [place] [address] Ingrid Cheek MD [address] [place] [address] [place], [place] [id number] Generalized weakness (Primary Dx); Urinary tract infection associated with catheterization of urinary tract, unspecified indwelling urinary catheter type, initial encounter (HCC); Hyponatremia; Hematuria, unspecified type Discharge Disposition: Discharge to home or self care Social History Tobacco Use Types Packs/Day Years Used Date Smoking Tobacco: Former Cigarettes 0.5 50 S tarted: 1974 Smokeless Tobacco: Never [facility] Utilities Answer Date Recorded In the past 12 months has [employer], gas, oil, or water company threatened [...] often do you attend chur ch or mormon services? Never 10/24/2023 Do you belong to any clubs o r organizations such as restorationist groups, unions, fraternal or athletic groups, or [...] to sleep or slept in a senior living (including now)? No 10/24/2023 Personal Safety Answer Date Recorded Have you ever been in or are you currently in a harmful physical or emotional relationship or is someone making you feel afraid or unsafe? 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 Gender Identity Not on file Sexual Orientation Not on file documented as of this encounter Last Filed Vital Signs Vital Sign Reading Time Taken Comments Blood Pressure 154/70 10/27/2023 12:40 PM CDT Pulse 55 10/27/2023 12:40 PM CDT Temperature 36.5 ??C (97.7 ??F) 10/27/2023 12:40 PM C DT Respiratory Rate 18 10/27/2023 12:40 PM CDT Oxygen Saturation 100% 10/27/2023 12:40 PM CDT Inhaled Oxygen Concentration - - Weight 82 kg (180 lb 12.8 oz) 10/23/2023 9:45 PM CDT Height 182.9 cm (6' 0.01 ) 10/23/2023 9:45 PM CD T Body Mass Index 24.52 10/23/2023 9:45 PM CDT documented in this encounter Discharge Summaries * Ingrid Cheek MD - 10/27/2023 12:28 PM CDT Inpatient Discharge Summary Patient Name - Meliton Delacruz Patient Age - 83 yrs Patient - [id number] [facility] - [id number] Document Creation Date: 10/27/2023 Admitting Provider, MD: Jaren Goyal MD Discharge Provider, MD: Ingrid Cheek MD Primary Care Physician at Discharge: Meliton Washburn MD [phone] Admission Date: 10/23/2023 Discharge Date/time: 10/27/2023 Admission Location: [facility] LOS - LOS: 4 days DETAILS OF HOSPITAL STAY Hospital Problems/Diagnoses Principal Problem: Hyponatremia Active Problems: Acute cystitis without hematuria Generalized weakness Reason for Hospitalization: Hematuria, Hyponatremia constipation Hospital Course: Meliton is a 83-year-old male with past medical history of hypertension, diabetes, BPH, presents [facility] with fatigue and hematuria yet. He has been having on and off hematuria for awhile, hehas a Mariee catheter and at times, catheter clogs. He was recently hospitalized at [facility], catheter was exchanged and he was discharged home afterwards. Since then he has had poor appetite, constipation, he went back to [facility] and he was discharged home with the recommendationof starting salt tablets for his sodium. He comes to [facility] the day after noting return of gross hematuria. Patient is on aspirin and Plavix for possible TIA. Both of which were stopped. S odium is 122 on presentation. He was recently started on sertraline. He drinks large volumes of water daily. UA was concerning for UTI thus he was empirically covered with Rocephin. Upon further questioning he does not have any UTI symptoms thus antibiotic was discontinued. Urine culture did not yield any clinically significant growth. Hematuria slowed, resolved on hospital day 4. Constipation was treated with Itzel Colace, MiraLax, lactulose. He had multiple bowel movements prior to discharge. Hyponatremia was treated with fluid restriction, tolvaptan, and increase sodium tablet dosing. Nephrology was on board and assisted with hyponatremia management. Per discussion with his , he saw aneurologist after his TIA episode of who stated he does not suspect patient had a true TIA. Plavix was discontinued after 10 days. Aspirin was continued. He has been on aspirin for many years, it sounds like he was on it for primary prevention. Discussed with patient and his to discuss whetherhe needs to continue aspirin in the outpatient setting with his PCP. Urology was consulted for hematuria, discuss nothing to do while hospitalized and recommended outpatient follow up with his primary urologist. Hemoglobin remained stable. Hyponatremia improved sodium 130 on day of discharge. Continue sodium tablets, fluid restriction to 48 oz a day for hyponatremia. If hyponatremia worsens consider discontinuing SSRI. PCP, Urology, Nephrology follow-up BMP in 1 week Discharge Details Physical Exam at Discharge: Discharge Condition: good Pulse: 64 Resp: 18 BP: 144/72 Temp: 36.6 ??C (97.9 ??F) Weight: 82 kg (180 lb 12.8 oz) Pertinent Exam Findings at Discharge: General alert and oriented x3, calm Respiratory: no incr wob Extremities no edema, palpable pulses bilaterally Neurological alert and oriented x3, intact cranial nerve, intact sensation all extremities, intact muscle strength, normal speech : mariee cath in place with clear urine output, light yellow urine in mariee bag Discharge Disposition: Discharge to home or self care Code Status at Discharge: Full Code Active Issues & Recommended Plan for Follow-up: pcp, urologist, 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 atorvastatin 10 mg tablet Commonly known as: LIPITOR No dose, route, or frequency recorded. cetirizine 10 mg tablet Commonly known as: ZyrTEC 10 mg, oral, Daily ferrous sulfate 325 mg (65 mg of elemental iron) tablet 65 mg of elemental iron, oral, Daily with breakfast finasteride 5 mg tablet Commonly known as: PROSCAR 5 mg, oral, Daily fluticasone propionate 50 mcg/actuation nasal spray Commonly known as: FLONASE 1 spray, each nostril, Daily metFORMIN 500 mg tablet Commonly known as: GLUCOPHAGE 500 mg, oral, 2 times daily Multivitamin 50 Plus tablet Generic drug: ycvldghwwtny-tmtcctvn-pfitfu oral, Daily omeprazole 20 mg capsule Commonly known as: PriLOSEC 20 mg, oral, Daily sertraline 50 mg tablet Commonly known as: ZOLOFT 50 mg, oral, Daily STOP taking these medications aspirin 81 mg chewable tablet clopidogreL 75 mg tablet Commonly known as: PLAVIX niacin ER 500 mg CR capsule Where to Get Your Medications These medications were sent to [facility] (MAIL SERVICE) [facility] - [place], [place] - [address], [facility] [id number] sodium chloride 1 gram tablet Time Spent in Discharge Process: I have spent 40 minutes on discharge planning activities. Time spent was on Coordination of care, Follow up , Counselling with patient/family, discharge exam, parent/patient education, PCP communication, and Other provider communication Test Results Pending at Discharge (If Blank, None Found): Operative Procedures Performed (If Blank, None Found): Outpatient Follow-Up: Future Appointments Date Time Provider Department Center 04/09/2024 10:30 AM Karen Benjamin MD [facility] Specialty Contact Information for Follow-ups Meliton Washburn MD Specialty: Family Medicine Relationship: PCP - General [address] [place] [address] [address] [place] [address] Next Steps: Follow up in 1 week(s) Dallas Siegel MD Specialty: Urology [address] [place] [address] Next Steps: Follow up Please schedule an appointment with the following provider(s): Meliton Washburn MD [address] [place] [address] [address] [place] [address] Follow up in 1 week(s) Dallas Siegel MD [address] [place] [address] Follow up ANCILLARY INFORMATION Other Procedures & Diagnostic Tests: No results found. Recent Labs: Recent Labs Lab Units 10/27/23 0710/26/23 11410/26/23 1146 WBC K/cumm 7.3 7.2 7.1 HEMOGLOBIN g/dL 11.4* 12.1* 12.1* HEMATOCRIT % 33.7* 34.4* 34.1* PLATELETS K/cumm 292 310 312 Recent Labs Lab Units 10/27/23 0726 10/26/23 1149 10/26/23 1146 WBC K/cumm 7.3 7.2 7.1 HEMOGLOBIN g/dL 11.4* 12.1* 12.1* HEMATOCRIT % 33.7* 34.4* 34.1* PLATELETS K/cumm 292 310 312 NEUTROS PCT % 79.2 79.8 80.3 LYMPHS PCT % 11.7 12.9 12.2 MONOS PCT % 6.6 6.0 6.2 EOS PCT % 1.4 0.6 0.4 Recent Labs Lab Units 10/27/23 0855 10/26/23 1235 10/26/23 1215 10/26/23 1149 10/25/23 1155 10/25/23 1138 SODIUM mmol/L 130* -- 132* 133* < > 125* POTASSIUM PLASMA mmol/L 4.4 -- 3.9 4.2 < > 4.5 CHLORIDE mmol/L 96* -- 96* 97 < > 94* CO2 mmol/L 23 -- 23 23 < > 23 BUN SERUM mg/dL 13 -- 12 12 < > 11 CREATININE mg/dL 0.70* -- 0.80 0.80 < > 0.70* [id number] mL/min/1.73 m2 >90 -- 88 88 < > >90 GLUCOSE mg/dL 129 -- 106 123 < > 118 POC GLUCOSE MONITOR -- < > -- -- < > -- CALCIUM mg/dL 8.6 -- 8.9 8.7 < > 8.2* ALBUMIN g/dL 3.9 -- 4.2 -- -- 3.6 PHOSPHORUS PLASMA mg/dL 3.6 -- 3.4 -- -- 3.1 < > = values in this interval not displayed. Recent Labs Lab Units 10/27/23 0855 10/27/23 0829 10/26/23 2354 10/26/23 1235 10/26/23 1215 10/26/23 1149 10/25/23 1155 10/25/23 1138 10/24/23 1128 10/24/23 0746 10/23/23 2224 10/23/23 1547 SODIUM mmol/L 130* -- -- -- 132* 133* < > 125* -- 127* < > 122* POTASSIUM PLASMA mmol/L 4.4 -- -- -- 3.9 4.2 < > 4.5 -- 4.6 < > 4.4 CHLORIDE mmol/L 96* -- -- -- 96* 97 < > 94* -- 96* < > 88* CO2 mmol/L 23 -- -- -- 23 23 < > 23 -- 21* < > 19* ANIONGAP mmol/L 11 -- -- -- 13 13 < > 8 -- 10 < > 15 GLUCOSE mg/dL 129 -- -- -- 106 123 < > 118 -- 116 < > 120 POC GLUCOSE MONITOR mg/dL -- 125 137 < > -- -- < > -- < > -- < > -- BUN SERUM mg/dL 13 -- -- -- 12 12 < > 11 -- 8 < > 11 CREATININE mg/dL 0.70* -- -- -- 0.80 0.80 < > 0.70* -- 0.80 < > 0.80 CALCIUM mg/dL 8.6 -- -- -- 8.9 8.7 < > 8.2* -- 8.4* < > 9.0 ALBUMIN g/dL 3.9 -- -- -- 4.2 -- -- 3.6 -- 3.8 -- 4.3 ALK PHOS Units/L -- -- -- -- -- -- -- -- -- 99 -- 112 ALT Units/L -- -- -- -- -- -- -- -- -- 14 -- 17 AST Units/L -- -- -- -- -- -- -- -- -- 16 -- 20 BILIRUBIN TOTAL mg/dL -- -- -- -- -- -- -- -- -- 0.5 -- 0.4 < > = values in this interval not displayed. Recent Labs Lab Units 10/24/23 0746 10/23/23 1547 ALK PHOS Units/L 99 112 BILIRUBIN TOTAL mg/dL 0.5 0.4 TOTAL PROTEIN g/dL 5.9* 6.8 ALT Units/L 14 17 AST Units/L 16 20 Recent Labs Lab Units 10/23/23 2339 MAGNESIUM mg/dL 1.7 Lab Results Component Value Date GLUCOSE 129 10/27/2023 GLUCOSE 125 10/27/2023 GLUCOSE 137 10/26/2023 Implant: Implants No active implants to display in this view. General Precautions (If Blank, None Found): Isolation Status: No active isolations Nutritional Status and in-house recommendations: Dietary Orders (From admission, onward) Start Ordered 10/26/232014 Adult Diet Restricted; 5 CHO/Meal; Yes, patient is receiving insulin; 1500mL = Diet 1050/Nursing 450 Diet effective now Question Answer Comment (MHB/MHE) Diet type Restricted Diabetic: 5 CHO/Meal Patient receiving insulin: Yes, patient is receiving insulin Fluid restriction dietary / 24h: 1500mL = Diet 1050/Nursing 450 10/26/23201410/24/23 2100 Bedtime snack At bedtime Comments: If bedtime BG is less than 100mg/dl, give patient a 15 gram carbohydrate snack. 10/23/232143 Anticoagulation Indication: INR: No results found for requested labs within last 30 days. Warfarin Administrations (last 168 hours) None Oxygen Status: No data found. Wound Care Instructions Other Instructions Call provider for: Temperature -Temperature greater than 101 degrees F Call provider for: difficulty breathing or chest pain Call provider for: extreme fatigue Call provider for: hives Call provider for: persistent dizziness or light-headedness Call provider for: persistent nausea or vomiting Call provider for: redness, tenderness, or signs of infection (pain, swelling, redness, odor or green/yellow discharge around incision site) Call provider for: severe uncontrolled pain Call provider for: headache, visual disturbances, weakness and speech changes Special Instructions Please have lab checked in 1 week, with PCP or continuous loft operator office. Monitor sodium level. Keep total daily fluid to 48 oz Please discuss if need to resume aspirin with PCP. Active LDAs (If Blank, None Found): Urethral Catheter (Active) Placement Date/Time: 10/23/232199 Placed by External Staff?: (c) Other hospital Tube Size (Fr.): 18 Fr Catheter Balloon Size: 10 mL Peripheral IV 10/23/23 20 G Anterior;Right Forearm (Active) Placement Date/Time: 10/23/23 154 Type: Angiocath Size (Gauge): 20 G Location Orientation: Anterior;Right Location: Forearm Site Prep: Chlorhexidine Technique: Anatomical landmarks Insertion attempts: 1 Patient Tolerance: Tolerated well Patient Emergency Contact: Primary Emergency Contact: Fani Delacruz Immunization Status at Discharge Immunization History Administered Date(s) Administered Pfizer SARS-CoV-2 Monovalent Vaccination (12+ Yrs) PURPLE 08/15/2020, 09/05/2020, 05/28/2021 Ingrid Cheek MD documented in this encounter Medications at Time of Discharge amLODIPine-benaz epriL (LOTREL) 10-20 mg per capsule Take 1 capsule by mouth daily 09/18/2021 atorvastatin (LIPITOR) 10 mg tablet 09/18/2021 ferrous sulfate 325 mg (65 mg of elemental iron) tablet Take 1 tablet (325 mg total) by mouth daily with breakfast finasteride (PROSCAR) 5 mg tablet Take 1 tablet (5 mg total) by mouth daily 03/22/2022 fluticasone propionate (FLONASE) 50 mcg/actuation nasal spray Administer 1 spray into each nostril daily metFORMIN (GLUCOPHAGE) 500 mg tablet Take 1 tablet (500 mg total) by mouth 2 (two) times a day 09/18/2021 multivitamin-min erals-lutein (Multivitamin 50 Plus) tablet Take by mouth daily omeprazole (PriLOSEC) 20 mg capsule Take 1 capsule (20 mg total) by mouth daily 07/06/2021 ALPRAZolam (XANAX) 0.25 mg tablet Take 1 tablet (0.25 mg total) by mouth 3 (three) times a day as needed for anxiety 4 cetirizine (ZyrTEC) 10 mg tablet Take 1 tablet (10 mg total) by mouth daily 4 sertraline (ZOLOFT) 50 mg tablet Take 1 tablet (50 mg total) by mouth daily 09/26/2023 4 sodium chloride 1,000 mg tablet Take 1 tablet (1 g total) by mouth 3 (three) times a day 90 tablet 10/27/2023 4 documented as of this encounter Ordered Prescriptions Prescription Sig Dispense Quantity Refills Last Filled Start Date End Date sodium chloride 1,000 mg tablet Take 1 tablet (1 g total) by mouth 3 (three) times a day 90 tablet 10/27/2023 11/16/2023 sodium chloride 1,000 mg tablet Take 1 tablet (1 g total) by mouth 3 (three) times a day 90 tablet 10/27/2023 10/27/2023 documented in this encounter Discharge Disposition Disposition Code Departure Means Destination Comment s Discharge to home or self care documented in this encounter Progress Notes * Eulalio Vernon, SOFTWARE TEST TECHNICIAN - 10/27/2023 9:51 AM CDT Physical Therapy 10/27/23 0951 PT Last Visit Session Type Treatment PT Received On 10/27/23 Safe Environment Patient found sitting in chair;Arm band checked;Gait belt utilized for all out of bed mobility;Session completed bedside Subjective Agreeable to Therapy Family/Caregiver Present No Precautions Precautions Bed/Chair Alarm;Fall risk Pain Assessment Pain Assessment No/denies pain Cognition Arousal/Alertness Alert Orientation Oriented X4 (person, place, time, situation) Following Commands Follows all commands and directions without difficulty Transfer 1 Transfer From 1 Sit Transfer Type 1 To and from Transfer to 1 Stand Technique 1 Sit to stand;Stand to sit Transfer Device 1 No device;Hand held assist Transfer Level of Assistance 1 Standby Assist Trials/Comments 1 No difficulties noted w/sit-stand transfers. Ambulation Functional Ambulation Category 2 Ambulation Yes Ambulation 1 Distance (ft) 1 480 Surface 1 Level tile Device 1 No device;Hand held assist Assistance 1 Contact Guard Assist Gait: Requires assist with 1 Maintaining balance Gait: Requires verbal cues to 1 Pace activity Gait Deviations 1 Step length - decreased Quality of Gait 1 Good Ambulation Comments 1 Pt ambulated very well w/o A.D. No LOB or path deviations noted. Safe Environment End of Therapy Session Safe Environment End of Therapy Session Patient left in chair;Chair alarm in place and activated;RNnotified;Call light within reach;Overbed table within reach Recommendation/Plan PT Recommendation/Plan (S) Home with family;Home Health PT;Home Health OT Progress during current admission Improving as expected Multi-Disciplinary Problems (from Physical Therapy) Active Problems Problem: Mobility Start Date: 10/24/23 Goal Start Date Expected End Date End Date LTG - Patient will demonstrate functional mobility with the following level of assist: 10/24/23 11/07/23 -- Goal Details: Pt will be able to transfer and ambulate w sba of 1, Progressing. Problem: Mobility Start Date: 10/24/23 Goal Start Date Expected End Date End Date LTG - Patient will navigate 4-6 steps with rails/device 10/24/23 10/31/23 -- Senior Reliability Engineer Services Utilized: NO Educated the patient to the role of physical therapy, plan of care, goals of therapy, rationale forprogressing mobility. Patient was left with all needs met and equipment intact. Mobility and ADL status posted at bedsideand within medical record. * Sourav Park MD - 10/27/2023 9:25 AM CDT Nephrology Daily Progress Subjective Reason for follow up hyponatremia. Interval History: Sitting on a chair, reading a book. Notes that constipation has improved. Objective Vitals: 24hr Min/Max: Temp Min: 35.9 ??C (96.6 ??F) Max: 36.9 ??C (98.4 ??F) Pulse Min: 58 Max: 77 BP Min: 127/70 Max: 161/90 Resp Min: 18 Max: 18 SpO2 Min: 97 % Max: 100 % Most Recent: Vitals: 10/27/23 0802 BP: 144/72 Pulse: 64 Resp: 18 Temp: (!) 35.9 ??C (96.6 ??F) SpO2: 99% Physical Exam: Constitutional: elderly, no distress Head: Normocephalic and atraumatic. Eyes: EOM are normal. Neck: Normal range of motion. Cardiovascular: Normal rate and regular rhythm. Pulmonary/Chest: Diminished breath sounds bilaterally Abdominal: Soft. Bowel sounds are normal. Musculoskeletal: Limited range of motion with no significant lower extremity edema Neurological: Alert and oriented to person Skin: Skin is warm and dry. Psychiatric: Normal mood and affect. Mariee catheter present Assessment/Plan Principal Problem: Hyponatremia Active Problems: Acute cystitis without hematuria Generalized weakness Recommendations --urine studies are not consistent with SIADH. Hyponatremia related to recent use of hydrochlorothiazide, reduced solute intake, volume depletion from poor oral intake. TSH is normal. --will discontinue normal saline that has been running so far. Mildly acidemic likely because of the saline. His serum sodium has improved from 122-129 with normal saline and is now 127. Encouraged oral fluids based upon his thirst but not to drink excessive volume of fluid. --suggested that he check his medications list home to ensure he has not taking hydrochlorothiazidewhich apparently was discontinued in August. --already with a Mariee catheter and supposed to follow with Urology as an outpatient. On IV antibiotics for possible UTI, cultures are pending. 5/7 A.m. labs are currently pending. Sodium was 127 yesterday. He has not a good historian regarding his medications and still not sure if he was taking hydrochlorothiazide at home. He also is on sertraline which he believes was started approximately 1 month ago but he is unclear on this. Does report si gnificant anxiety and fine to continue for now but will reassess if significant hyponatremia remains an ongoing issue on an SSRI. Encourage solute intake. Resume fluid restriction if needed pending trend in serum sodium. 10/26/2023 Received a dose of tolvaptan yesterday and fluid restriction was temporarily discontinued. Labs arepending from this morning. Serum sodium was 125 yesterday prior to receiving tolvaptan. Awaiting labs from today before reinstating fluid restriction or repeating dose of tolvaptan. I requested a renal function panel. Getting symptomatic care for constipation as per primary team. 10/27/2023 Serum sodium slightly reduced at 130. This would be expected after improvement with a dose of tolvaptan. I placed him back on a fluid restriction last evening. He typically drinks quite a bit more than 48 oz that has been recommended. Ensure that he has not on a thiazide /thiazide type diuretic anymore. Maintain a liberal salt diet and sodium chloride tablets 1 g 3 times a day. No objection to discharge from Nephrology perspective. Will arrange labs as an outpatient and subsequent follow-up. * Ruth Meraz COTA - 10/27/2023 8:25 AM CDT Occupational Therapy 10/27/23 0825 General Session Type Treatment Rehab Only - Missed Reasons - All Disciplines Patient request (I'll get back with you later, I am waiting for breakfast) * Ruth Meraz COTA - 10/27/2023 8:10 AM CDT Occupational Therapy 10/27/23 0936 General Session Type Treatment OT Received On 10/27/23 Safe Environment Arm band checked;Patient found sitting in chair;Session completed bedside;Gait belt utilized for all out of bed mobility Subjective Agreeable to Therapy Subjective Comment I feel good today Family/Caregiver Present No Current Functional Status OT Functional Mobility Patient completed sit <> stand from standard chair with SBA. Patient complete functional mobility including item retrieval with no AD with CGA/SBA. OT Self Care Patient decline ADL activity on this date Static Standing Balance Static Standing-Level of Assistance Close supervision Dynamic Standing Balance Dynamic Standing-Balance Support No upper extremity supported Dynamic Standing-Balance Forward lean;Lateral lean;Reaching for objects;Reaching across midline Dynamic Standing-Standing Surface Floor Dynamic Standing-Level of Assistance Contact guard Dynamic Standing-Comments fair+/good- balance up to 6 minutes Safe Environment End of Therapy Session Safe Environment End of Therapy Session Patient left in chair;Chair alarm in place and activated;RNnotified;Call light within reach;Overbed table within reach Plan Plan Continue with current plan Recommendation/Plan OT Recommendation Home with family;Home Health OT Education provided to the patient/caregiver regarding the role of occupational therapy, plan of care, goals of therapy, rationale for progressing mobility and use of call light. Good understanding. Senior Reliability Engineer Services Utilized: NO * Eulalio Vernon PTA - 10/26/2023 3:04 PM CDT Physical Therapy 10/26/23 1504 PT Last Visit Session Type Treatment PT Received On 10/26/23 Safe Environment Patient found sitting at edge of bed;Arm band checked;Gait belt utilized for all out of bed mobility;Session completed bedside Subjective Agreeable to Therapy Family/Caregiver Present No Precautions Precautions Bed/Chair Alarm;Fall risk Pain Assessment Pain Assessment No/denies pain Cognition Arousal/Alertness Alert Orientation Oriented X4 (person, place, time, situation) Following Commands Follows all commands and directions without difficulty Transfer 1 Transfer From 1 Sit Transfer Type 1 To and from Transfer to 1 Stand Technique 1 Sit to stand;Stand to sit Transfer Device 1 No device;Hand held assist Transfer Level of Assistance 1 Contact Guard Assist Trials/Comments 1 Pt soewhat unsteady upon standing from the bedside; however, pt was able to steady himself quickly w/CGA +1. Ambulation Functional Ambulation Category 2 Ambulation Yes Ambulation 1 Distance (ft) 1 240 Surface 1 Level tile Device 1 No device;Hand held assist Assistance 1 Contact Guard Assist Gait: Requires assist with 1 Maintaining balance Gait: Requires verbal cues to 1 Pace activity;Improve upright posture Gait Deviations 1 Posture - flexed Quality of Gait 1 Good Ambulation Comments 1 Pt ambulated well w/no A.D. Pt encouraged to slow his pace for safety. Pt didwell w/no LOB noted. Safe Environment End of Therapy Session Safe Environment End of Therapy Session Patient left supine in bed;RN notified;Call light within reach;Overbed table within reach;Bed in lowest position with wheels locked;Bed rails up per protocol Recommendation/Plan PT Recommendation/Plan (S) Home with family;Home Health PT;Home Health OT Progress during current admission Progressing toward goals Multi-Disciplinary Problems (from Physical Therapy) Active Problems Problem: Mobility Start Date: 10/24/23 Goal Start Date Expected End Date End Date LTG - Patient will demonstrate functional mobility with the following level of assist: 10/24/23 11/07/23 -- Goal Details: Pt will be able to transfer and ambulate w sba of 1, Progressing. Problem: Mobility Start Date: 10/24/23 Goal Start Date Expected End Date End Date LTG - Patient will navigate 4-6 steps with rails/device 10/24/23 10/31/23 -- Senior Reliability Engineer Services Utilized: NO Educated the patient to the role of physical therapy, plan of care, goals of therapy, rationale forprogressing mobility. Patient was left with all needs met and equipment intact. Mobility and ADL status posted at bedsideand within medical record. * Ruth Meraz COTA - 10/26/2023 12:03 PM CDT Occupational Therapy 10/26/23 0906 General Session Type Treatment OT Missed Visit Reason Patient declined ( I don't want to get out of bed I will let nursing staff know when I am ready to get up ) * Shameka Melgoza NP - 10/26/2023 8:39 AM CDT Images from the original note were not included. Urology Progress Note Interval Summary: -Reoccurrence of hematuria. Appears mild. Couple small clots in tubing noted. Objective Recent Vitals(24hr Range): Vitals: 10/25/23 1906 10/25/23 2020 10/26/23 0011 10/26/23 0340 BP: 149/67 152/70 151/82 BP Location: Right arm Right arm Right arm Patient Position: Lying Lying Lying Pulse: 54 57 64 63 Resp: 20 18 Temp: 36.7 ??C (98.1 ??F) 36.6 ??C (97.9 ??F) 37 ??C (98.6 ??F) TempSrc: Oral Oral Oral SpO2: 100% 100% 97% Weight: Height: I and Os: I/O last 3 completed shifts: In: 1000 [P.O.:1000] Out: 3550 [Urine:3550] No intake/output data recorded. I/O last 2 completed shifts: In: 760 [P.O.:760] Out: 2350 [Urine:2350] No intake/output data recorded. Physical exam: Physical Exam Vitals reviewed. Constitutional: Appearance: Normal appearance. Pulmonary: Effort: Pulmonary effort is normal. Genitourinary: Comments: Mariee with light pink, madai urine. Few small dark red clots noted in tubing. Neurological: Mental Status: He is alert and oriented to person, place, and time. Psychiatric: Mood and Affect: Mood normal. Behavior: Behavior normal. Lab/Radiology/Diagnostic Review: Chem/LFT Lab History Latest Ref Rng & Units 10/23/2023 10/24/2023 07:46 10/25/2023 11:38 Labs-Chem/LFT Sodium 135 - 145 mmol/L 129 127 125 Creatinine 0.80 - 1.30 mg/dL 0.90 0.80 0.70 Bilirubin, total 0.1 - 1.2 mg/dL 0.4 0.5 AST 10 - 50 Units/L 20 16 ALT 7 - 55 Units/L 17 14 Alk phos 40 - 130 Units/L 112 99 CrCl- Actual Body Weight (Cockcroft-Gault) 72.1 81.2 92.7 Details More abnormal values are hidden. Newest values shown. Go to activity for more data. More values are hidden. Newest values shown. Go to activity for more data. Hematology Lab History Latest Ref Rng & Units 10/23/2023 15:47 10/24/2023 07:46 10/25/2023 11:38 Labs - Hematology WBC 3.8 - 9.9 K/cumm 7.7 6.7 6.4 Total Hb, POC 13.0 - 17.5 g/dL 12.5 11.6 11.0 Hct 38.9 - 50.3 % 34.9 33.8 30.8 Plt 150 - 400 K/cumm 327 310 282 Neutrophil abs 1.5 - 6.5 K/cumm 6.4 5.0 Lymphocytes, abs 0.8 - 3.3 K/cumm 0.7 0.8 Principal Problem: Hyponatremia Active Problems: Acute cystitis without hematuria Generalized weakness Assessment : 83 y.o. male with urinary retention managed with chronic mariee catheter who was admitted with grosshematuria and hyponatremia. #Chronic Mariee -Exchanged in [facility] 10/22 due to prior catheter clogged. -Mariee exchanged monthly in Dr. Siegel's office. #Hematuria -Urine cx shows no growth. -Reoccurrence of hematuria. Patient reports he noticed hematuria again after getting up to try and have BM. He is having issue with constipation and has not had BM for about 5 days. After he rests for a couple hours, the hematuria will resolve. When he gets up again to try and have BM, he will notice blood again. -I flushed his catheter with approximately 300 cc sterile saline. I obtained a few small clots but catheter flushed easily. The urine turned from light pink/madai to clear with tinge of pink quickly. -Hematuria likely related to straining while trying to have BM with mariee catheter in place. Likelyto continue intermittently if patient has large BM or strains. The hematuria is mild and mariee appears to be draining well. Plan No acute interventions indicated. Continue finasteride. Patient should continue to follow with current urologist for regular mariee catheter exchange. Thank you for allowing us to participate in the care of this patient. For any questions or concerns, please refer to specialty portal to page appropriate provider health and wellness sales consultant. Shameka Melgoza NP 10/26/2023 * Sourav Park MD - 10/26/2023 8:09 AM CDT Nephrology Daily Progress Subjective Reason for follow up hyponatremia. Interval History: Sitting up in bed, complains that he is suffering from constipation. Objective Vitals: 24hr Min/Max: Temp Min: 36.6 ??C (97.9 ??F) Max: 37 ??C (98.6 ??F) Pulse Min: 54 Max: 64 BP Min: 119/61 Max: 152/70 Resp Min: 18 Max: 20 SpO2 Min: 97 % Max: 100 % Most Recent: Vitals: 10/26/23 0340 BP: 151/82 Pulse: 63 Resp: 18 Temp: 37 ??C (98.6 ??F) SpO2: 97% Physical Exam: Constitutional: Ill-appearing in no acute distress somewhat agitated Head: Normocephalic and atraumatic. Eyes: EOM are normal. Neck: Normal range of motion. Cardiovascular: Normal rate and regular rhythm. Pulmonary/Chest: Diminished breath sounds bilaterally Abdominal: Soft. Bowel sounds are normal. Musculoskeletal: Limited range of motion with no significant lower extremity edema Neurological: Alert and oriented to person Skin: Skin is warm and dry. Psychiatric: Normal mood and affect. Assessment/Plan Principal Problem: Hyponatremia Active Problems: Acute cystitis without hematuria Generalized weakness Recommendations --urine studies are not consistent with SIADH. Hyponatremia related to recent use of hydrochlorothiazide, reduced solute intake, volume depletion from poor oral intake. TSH is normal. --will discontinue normal saline that has been running so far. Mildly acidemic likely because of the saline. His serum sodium has improved from 122-129 with normal saline and is now 127. Encouraged oral fluids based upon his thirst but not to drink excessive volume of fluid. --suggested that he check his medications list home to ensure he has not taking hydrochlorothiazidewhich apparently was discontinued in August. --already with a Mariee catheter and supposed to follow with Urology as an outpatient. On IV antibiotics for possible UTI, cultures are pending. 5/7 A.m. labs are currently pending. Sodium was 127 yesterday. He has not a good historian regarding his medications and still not sure if he was taking hydrochlorothiazide at home. He also is on sertraline which he believes was started approximately 1 month ago but he is unclear on this. Does report si gnificant anxiety and fine to continue for now but will reassess if significant hyponatremia remains an ongoing issue on an SSRI. Encourage solute intake. Resume fluid restriction if needed pending trend in serum sodium. 10/26/2023 Received a dose of tolvaptan yesterday and fluid restriction was temporarily discontinued. Labs arepending from this morning. Serum sodium was 125 yesterday prior to receiving tolvaptan. Awaiting labs from today before reinstating fluid restriction or repeating dose of tolvaptan. I requested a renal function panel. Getting symptomatic care for constipation as per primary team. * Ingrid Cheek MD - 10/26/2023 7:20 AM CDT .General Medicine Daily Progress Subjective Patient was seen and examined today, no acute overnight changes, remains afebrile with stable vitalsigns, feeling better today, denies any acute complaints, Mariee catheter with clear urine output. Interval hx: 10/24 Vss Urine no growth, will dc rocephin Lab pending Mariee still has bloody urine, blood on his penis and scrotum Pt deny [place], PCI, stroke, peripheral arterial disease, w hx of surgical/procedural intervention, he was just told to start taking baby aspirin Reports constipation 10/25 Vss Urine clearing, however at times when mariee is maneuvered, there will be some bleeding Finally able to have BM, pt is relieved tolvaptan given yd Past Medical History: Diagnosis Date Arthritis Enlarged prostate GERD (gastroesophageal reflux disease) Heart murmur High cholesterol HTN (hypertension) Type 2 diabetes mellitus (HCC) Objective Vitals: 24hr Min/Max: Temp Min: 36.6 ??C (97.9 ??F) Max: 37 ??C (98.6 ??F) Pulse Min: 54 Max: 66 BP Min: 119/61 Max: 152/70 Resp Min: 18 Max: 20 SpO2 Min: 97 % Max: 100 % Most Recent : Vitals: 10/26/23 0340 BP: 151/82 Pulse: 63 Resp: 18 Temp: 37 ??C (98.6 ??F) SpO2: 97% I/O last 2 completed shifts: In: 760 [P.O.:760] Out: 2350 [Urine:2350] No intake/output data recorded. Physical Exam: General alert and oriented x3, anxious Respiratory: no incr wob Extremities no edema, palpable pulses bilaterally Neurological alert and oriented x3, intact cranial nerve, intact sensation all extremities, intact muscle strength, normal speech : mariee cath in place with clear urine output, blood tinged urine in mariee bag Lab/Radiology/Diagnostic Review: Laboratory review: Lab results in the last 12 hours: Recent Results (from the past 12 hour(s)) POCT glucose Collection Time: 10/25/23 8:22 PM Result Value Ref Range Glucose, POC 121 70 - 199 mg/dL Glucose comment 1 Use This Result Glucose comment 2 RN/MD Notified Recent Results (from the past 48 hour(s)) Comprehensive metabolic panel Collection Time: 10/24/23 7:46 AM Result Value Ref Range Sodium 127 (L) 135 - 145 mmol/L Potassium, pl 4.6 3.3 - 4.9 mmol/L Chloride 96 (L) 97 - 110 mmol/L CO2 21 (L) 22 - 32 mmol/L Anion gap 10 2 - 15 mmol/L BUN 8 6 - 25 mg/dL Creatinine 0.80 0.80 - 1.30 mg/dL Glucose 116 70 - 199 mg/dL Calcium 8.4 (L) 8.5 - 10.3 mg/dL Bilirubin, total 0.5 0.1 - 1.2 mg/dL Protein, pl 5.9 (L) 6.5 - 8.5 g/dL Albumin 3.8 3.5 - 5.0 g/dL Alk phos 99 40 - 130 Units/L ALT 14 7 - 55 Units/L AST 16 10 - 50 Units/L CBC without differential Collection Time: 10/24/23 7:46 AM Result Value Ref Range WBC 6.7 3.8 - 9.9 K/cumm Hgb 11.6 (L) 13.0 - 17.5 g/dL Hct 33.8 (L) 38.9 - 50.3 % Plt 310 150 - 400 K/cumm MPV 9.3 9.1 - 12.3 fL RBC 3.96 (L) 4.30 - 5.80 M/cumm MCV 85.4 81.3 - 96.4 fL MCH 29.3 27.1 - 33.3 pg MCHC 34.3 32.3 - 35.7 g/dL RDW CV 12.9 11.1 - 14.9 % RDW SD 39.8 35.7 - 48.1 fL NRBC abs 0.00 0.00 - 0.01 K/cumm Lipid panel Collection Time: 10/24/23 7:46 AM Result Value Ref Range Cholesterol 101 30 - 199 mg/dL Triglycerides 79 <=149 mg/dL HDL 45 >=40 mg/dL LDL, calculated 40 <=129 mg/dL Non-HDL Cholesterol 56 mg/dL Chol/HDL ratio 2 Hemoglobin A1c Collection Time: 10/24/23 7:46 AM Result Value Ref Range Hgb A1C 6.9 (H) 4.0 - 5.6 % Estimated Average Glucose 151 mg/dL Thyroid Function Sampson Collection Time: 10/24/23 7:46 AM Result Value Ref Range TSH 1.81 0.30 - 4.20 mcIUnit/mL eGFR Collection Time: 10/24/23 7:46 AM Result Value Ref Range eGFR 88 >=60 mL/min/1.73 m2 POCT glucose Collection Time: 10/24/23 11:28 AM Result Value Ref Range Glucose, POC 136 70 - 199 mg/dL Glucose comment 1 Use This Result Osmolality, blood Collection Time: 10/24/23 12:26 PM Result Value Ref Range Osmo 264 (L) 275 - 295 mOsm/kg POCT glucose Collection Time: 10/24/23 5:07 PM Result Value Ref Range Glucose, POC 112 70 - 199 mg/dL POCT glucose Collection Time: 10/24/23 8:23 PM Result Value Ref Range Glucose, POC 188 70 - 199 mg/dL POCT glucose Collection Time: 10/25/23 9:20 AM Result Value Ref Range Glucose, POC 110 70 - 199 mg/dL Renal function panel Collection Time: 10/25/23 11:38 AM Result Value Ref Range Sodium 125 (L) 135 - 145 mmol/L Potassium, pl 4.5 3.3 - 4.9 mmol/L Chloride 94 (L) 97 - 110 mmol/L CO2 23 22 - 32 mmol/L Anion gap 8 2 - 15 mmol/L BUN 11 6 - 25 mg/dL Creatinine 0.70 (L) 0.80 - 1.30 mg/dL Glucose 118 70 - 199 mg/dL Calcium 8.2 (L) 8.5 - 10.3 mg/dL Phosphorus, pl 3.1 2.3 - 4.5 mg/dL Albumin 3.6 3.5 - 5.0 g/dL CBC with auto differential Collection Time: 10/25/23 11:38 AM Result Value Ref Range WBC 6.4 3.8 - 9.9 K/cumm Hgb 11.0 (L) 13.0 - 17.5 g/dL Hct 30.8 (L) 38.9 - 50.3 % Plt 282 150 - 400 K/cumm MPV 9.1 9.1 - 12.3 fL RBC 3.68 (L) 4.30 - 5.80 M/cumm MCV 83.7 81.3 - 96.4 fL MCH 29.9 27.1 - 33.3 pg MCHC 35.7 32.3 - 35.7 g/dL RDW CV 12.8 11.1 - 14.9 % RDW SD 39.0 35.7 - 48.1 fL NRBC abs 0.00 0.00 - 0.01 K/cumm Differential, auto Collection Time: 10/25/23 11:38 AM Result Value Ref Range Neutrophil abs 5.0 1.5 - 6.5 K/cumm Imm gran abs 0.0 0.0 - 0.1 K/cumm Lymphocyte abs 0.8 0.8 - 3.3 K/cumm Monocyte abs 0.5 0.2 - 0.8 K/cumm Eosinophil abs 0.1 0.0 - 0.5 K/cumm Basophil abs 0.0 0.0 - 0.1 K/cumm Neutrophil pct 79.3 % Imm gran pct 0.2 % Lymphocyte pct 11.9 % Monocyte pct 7.2 % Eosinophil pct 0.9 % Basophil pct 0.5 % eGFR Collection Time: 10/25/23 11:38 AM Result Value Ref Range eGFR >90 >=60 mL/min/1.73 m2 POCT glucose Collection Time: 10/25/23 11:55 AM Result Value Ref Range Glucose, POC 113 70 - 199 mg/dL POCT glucose Collection Time: 10/25/23 5:05 PM Result Value Ref Range Glucose, POC 115 70 - 199 mg/dL POCT glucose Collection Time: 10/25/23 8:22 PM Result Value Ref Range Glucose, POC 121 70 - 199 mg/dL Glucose comment 1 Use This Result Glucose comment 2 RN/MD Notified No results found. No results found for the last 90 days. Current Facility-Administered Medications Medication Dose Route Frequency Provider Last Rate Last Admin acetaminophen (TYLENOL) tablet 650 mg 650 mg oral Q4H PRN Jaren Goyal MD Or acetaminophen (TYLENOL) 32 mg/mL oral liquid 650 mg 650 mg feeding tube Q4H PRN Jaren Goyal MD Or acetaminophen (TYLENOL) suppository 650 mg 650 mg rectal Q4H PRN Jaren Goyal MD cefTRIAXone (ROCEPHIN) 1,000 mg/10 mL in sterile water (premix) 1,000 mg 1,000 mg intravenous Q24H [facility] Jaren Goyal MD 1,000 mg at 10/24/23 0449 dextrose (GLUTOSE) 40 % gel 15 g 15 g oral Q15 Min PRN Jaren Goyal MD Or dextrose (D10W) 10% bolus 250 mL 250 mL intravenous Q15 Min PRN Jaren Goyal MD glucagon injection 1 mg 1 mg intramuscular Q30 Min PRN Jaren Goyal MD insulin lispro (HumaLOG, ADMELOG) 100 unit/mL injection 0-4 Units 0-4 Units subcutaneous Nightly Jaren Goyal MD insulin lispro (HumaLOG, ADMELOG) 100 unit/mL injection 0-5 Units 0-5 Units subcutaneous TID with meals Jaren Goyal MD polyethylene glycol (MIRALAX) packet 17 g 17 g oral Daily PRN Jaren Goyal MD ramelteon (ROZEREM) tablet 8 mg 8 mg oral Nightly PRN Jaren Goyal MD senna-docusate (PERICOLACE) 8.6-50 mg per tablet 1 tablet 1 tablet oral BID Jaren Goyal MD sodium chloride 0.9% infusion 75 mL/hr intravenous Continuous Jaren Goyal MD 75 mL/hrat 10/23/232248 75 mL/hr at 10/23/232248 Assessment/Plan Principal Problem: Hyponatremia Active Problems: Acute cystitis without hematuria Generalized weakness 83 years old male with past medical history significant for hypertension, hyperlipidemia, CAD, DM type 2 with chronic urinary retention with indwelling Mariee catheter, was admitted with generalized weakness and fatigue and lightheadedness was found have hyponatremia with sodium 122 and complicated UTI. #generalized weakness and fatigue # physical debility -likely multifactorial due to age-related physical debility, acute physical deconditioning due to hyponatremia and complicated UTI. -PT/OT on board # acute on chronic hyponatremia Sodium 122-->129-> 127, received NS 1 L bolus in ED, currently on NS at 75 mL/hour -per patient he takes salt tab 500 mg once daily -patient tolerating oral diet, discontinue IVF -restart salt tab 500 mg daily -check serum osmolality, urine osmolality, urine sodium Nephrology on consult -Na 133 td, monitor tmr, hopefully dc home in next 24-48hr # acute cystitis with hematuria due to indwelling Mariee catheter, unlikely # BPH with acute on chronic urinary retention -resume finasteride, patient can not take tamsulosin due to sulfa allergy -maintain Mariee catheter in place, clear urine output, per patient cath was exchanged on 10/21 at [facility] -UA suggestive for UTI -dc ceftriaxone IV, cx no growth -urology on board appreciate recommendations # history of hypertension/hyperlipidemia, pt deny CAD -Plavix and aspirin on hold due to hematuria - resume Lipitor, amlodipine 5 mg daily -pt deny cad, pad, hx of CVA -will request record from PCP's office Shona Daly, as he is on both asa and plavix # DM type 2 with hyperglycemia -hold oral hypoglycemic agents Accu-Chek with dialysis # anxiety/depression -resume Zolfat and alprazolam #normocytic normochromic anemia Stable hemoglobin, continue to monitor CBC DVT prophylaxis: SCDs, hold chemoprophylaxis due to hematuria * Eulalio Vernon PTA - 10/25/2023 1:27 PM CDT Physical Therapy 10/25/23 1327 PT Last Visit Session Type Treatment Subjective Comment I'm having some issues with bleeding today. PT Missed Visit Reason Patient declined (Pt's RN, Taran Humphries, aware of pt declining therapy, and stated that it was ok for pt to pass on therapy today. Will check back in AM.) * Jamshid Kennedy MD - 10/25/2023 9:15 AM CDT Nephrology Daily Progress Subjective Reason for follow up hyponatremia. Interval History: Sitting up in a chair, primary complaint is constipation Objective Vitals: 24hr Min/Max: Temp Min: 36.6 ??C (97.9 ??F) Max: 37 ??C (98.6 ??F) Pulse Min: 59 Max: 67 BP Min: 118/70 Max: 155/80 Resp Min: 18 Max: 20 SpO2 Min: 97 % Max: 100 % Most Recent: Vitals: 10/25/23 0752 BP: 150/84 Pulse: 66 Resp: 18 Temp: 36.7 ??C (98.1 ??F) SpO2: 100% Physical Exam: Constitutional: Ill-appearing in no acute distress somewhat agitated Head: Normocephalic and atraumatic. Eyes: EOM are normal. Neck: Normal range of motion. Cardiovascular: Normal rate and regular rhythm. Pulmonary/Chest: Diminished breath sounds bilaterally Abdominal: Soft. Bowel sounds are normal. Musculoskeletal: Limited range of motion with no significant lower extremity edema Neurological: Alert and oriented to person Skin: Skin is warm and dry. Psychiatric: Normal mood and affect. Assessment/Plan Principal Problem: Hyponatremia Active Problems: Acute cystitis without hematuria Generalized weakness Recommendations --urine studies are not consistent with SIADH. Hyponatremia related to recent use of hydrochlorothiazide, reduced solute intake, volume depletion from poor oral intake. TSH is normal. --will discontinue normal saline that has been running so far. Mildly acidemic likely because of the saline. His serum sodium has improved from 122-129 with normal saline and is now 127. Encouraged oral fluids based upon his thirst but not to drink excessive volume of fluid. --suggested that he check his medications list home to ensure he has not taking hydrochlorothiazidewhich apparently was discontinued in August. --already with a Mariee catheter and supposed to follow with Urology as an outpatient. On IV antibiotics for possible UTI, cultures are pending. 5 A.m. labs are currently pending. Sodium was 127 yesterday. He has not a good historian regarding his medications and still not sure if he was taking hydrochlorothiazide at home. He also is on sertraline which he believes was started approximately 1 month ago but he is unclear on this. Does report s ignificant anxiety and fine to continue for now but will reassess if significant hyponatremia remains an ongoing issue on an SSRI. Encourage solute intake. Resume fluid restriction if needed pending trend in serum sodium. * Ruth Meraz COTA - 10/25/2023 7:39 AM CDT Occupational Therapy 10/25/23 0739 General Session Type Treatment OT Received On 10/25/23 Safe Environment Arm band checked;Patient found in supine;Session completed bedside;Gait belt utilized for all out of bed mobility Subjective Agreeable to Therapy Subjective Comment I am ready to go home Family/Caregiver Present No Current Functional Status OT Functional Mobility Patient completed sit to stand from EOB with SBA. Patient complete functional mobility including item retrieval with no AD with CGA. Patient completed sit <> stand from standard chair with SBA. OT Self Care Patient completed donning of socks sitting EOB with independence. Patient completed grooming tasks standing in front of sink with SBA supported self with one hand onto counter top. Precautions Precautions Bed/Chair Alarm;Fall risk Pain Assessment Pain Assessment No/denies pain Balance Balance Yes Static Sitting Balance Static Sitting-Level of Assistance Independent Dynamic Sitting Balance Dynamic Sitting-Level of Assistance Independent Static Standing Balance Static Standing-Level of Assistance Close supervision Dynamic Standing Balance Dynamic Standing-Level of Assistance Contact guard Dynamic Standing-Comments up to 6 minutes Bed Mobility Bed Mobility Yes Bed Mobility 1 Bed Mobility From 1 Supine Bed Mobility Type 1 To Bed Mobility to 1 Edge of bed Level of Assistance 1 Modified Independent Safe Environment End of Therapy Session Safe Environment End of Therapy Session Patient left in chair;Chair alarm in place and activated;RNnotified;Call light within reach;Overbed table within reach Plan Plan Continue with current plan Recommendation/Plan OT Recommendation Home with family;Home Health OT Education provided to the patient/caregiver regarding the role of occupational therapy, plan of care, goals of therapy, rationale for progressing mobility and use of call light. Good understanding. * Ingrid Cheek MD - 10/25/2023 7:18 AM CDT .General Medicine Daily Progress Subjective Patient was seen and examined today, no acute overnight changes, remains afebrile with stable vitalsigns, feeling better today, denies any acute complaints, Mariee catheter with clear urine output. Interval hx: 10/24 Vss Urine no growth, will dc rocephin Lab pending Mariee still has bloody urine, blood on his penis and scrotum Pt deny [place], PCI, stroke, peripheral arterial disease, w hx of surgical/procedural intervention, he was just told to start taking baby aspirin Reports constipation Past Medical History: Diagnosis Date Arthritis Enlarged prostate GERD (gastroesophageal reflux disease) Heart murmur High cholesterol HTN (hypertension) Type 2 diabetes mellitus (HCC) Objective Vitals: 24hr Min/Max: Temp Min: 36.6 ??C (97.9 ??F) Max: 37 ??C (98.6 ??F) Pulse Min: 59 Max: 67 BP Min: 118/70 Max: 159/78 Resp Min: 18 Max: 20 SpO2 Min: 97 % Max: 100 % Most Recent : Vitals: 10/25/23 0324 BP: 154/85 Pulse: 59 Resp: 20 Temp: 36.8 ??C (98.2 ??F) SpO2: 97% I/O last 2 completed shifts: In: 360 [P.O.:360] Out: 1900 [Urine:1900] No intake/output data recorded. Physical Exam: General alert and oriented x3, anxious Cardiovascular RRR, normal S1 and S2, no murmurs or gallops Respiratory, clear to auscultation bilaterally, no coarse sounds, wheezing, rales, not using accessory muscles, able to speak full sentences Abdominal nondistended, soft, normal bowel sounds, no rebound or guarding Extremities no edema, palpable pulses bilaterally Neurological alert and oriented x3, intact cranial nerve, intact sensation all extremities, intact muscle strength, normal speech, normal gait. : mariee cath in place with bloody urine output Lab/Radiology/Diagnostic Review: Laboratory review: Lab results in the last 12 hours: Recent Results (from the past 12 hour(s)) POCT glucose Collection Time: 10/24/23 8:23 PM Result Value Ref Range Glucose, POC 188 70 - 199 mg/dL Recent Results (from the past 48 hour(s)) CBC with auto differential Collection Time: 10/23/23 3:47 PM Result Value Ref Range WBC 7.7 3.8 - 9.9 K/cumm Hgb 12.5 (L) 13.0 - 17.5 g/dL Hct 34.9 (L) 38.9 - 50.3 % Plt 327 150 - 400 K/cumm MPV 9.0 (L) 9.1 - 12.3 fL RBC 4.25 (L) 4.30 - 5.80 M/cumm MCV 82.1 81.3 - 96.4 fL MCH 29.4 27.1 - 33.3 pg MCHC 35.8 (H) 32.3 - 35.7 g/dL RDW CV 12.6 11.1 - 14.9 % RDW SD 37.8 35.7 - 48.1 fL NRBC abs 0.00 0.00 - 0.01 K/cumm Comprehensive metabolic panel Collection Time: 10/23/23 3:47 PM Result Value Ref Range Sodium 122 (L) 135 - 145 mmol/L Potassium, pl 4.4 3.3 - 4.9 mmol/L Chloride 88 (L) 97 - 110 mmol/L CO2 19 (L) 22 - 32 mmol/L Anion gap 15 2 - 15 mmol/L BUN 11 6 - 25 mg/dL Creatinine 0.80 0.80 - 1.30 mg/dL Glucose 120 70 - 199 mg/dL Calcium 9.0 8.5 - 10.3 mg/dL Bilirubin, total 0.4 0.1 - 1.2 mg/dL Protein, pl 6.8 6.5 - 8.5 g/dL Albumin 4.3 3.5 - 5.0 g/dL Alk phos 112 40 - 130 Units/L ALT 17 7 - 55 Units/L AST 20 10 - 50 Units/L Differential, auto Collection Time: 10/23/23 3:47 PM Result Value Ref Range Neutrophil abs 6.4 1.5 - 6.5 K/cumm Imm gran abs 0.0 0.0 - 0.1 K/cumm Lymphocyte abs 0.7 (L) 0.8 - 3.3 K/cumm Monocyte abs 0.4 0.2 - 0.8 K/cumm Eosinophil abs 0.0 0.0 - 0.5 K/cumm Basophil abs 0.0 0.0 - 0.1 K/cumm Neutrophil pct 83.8 % Imm gran pct 0.4 % Lymphocyte pct 9.2 % Monocyte pct 5.8 % Eosinophil pct 0.3 % Basophil pct 0.5 % eGFR Collection Time: 10/23/23 3:47 PM Result Value Ref Range eGFR 88 >=60 mL/min/1.73 m2 Urinalysis reflex to microscopic and culture Urine Collection Time: 10/23/23 6:11 PM Specimen: Urine Result Value Ref Range Color, ur Madai Yellow Clarity, ur Cloudy (A) Clear Specific gravity, ur 1.016 1.003 - 1.030 pH, urine 8.0 Protein, ur ql 1+ (A) Negative Glucose, ur ql Negative Negative Ketones, ur 2+ (A) Negative Bilirubin, ur Negative Negative Blood, ur 3+ (A) Negative Urobilinogen, ur 2.0 (A) <2.0 mg/dL Nitrite, ur Negative Negative Leukocyte esterase, ur 2+ (A) Negative UA reflex comment Reflex to microscopic UA will be performed. Urinalysis, microscopic only Collection Time: 10/23/23 6:11 PM Result Value Ref Range WBC, ur 21-50 (A) 0 - 5 /HPF RBC, ur >50 (A) 0 - 2 /HPF Mucous, ur Present (A) Culture Reflex Comment Reflex to urine culture will be performed. Urine culture Urine Collection Time: 10/23/23 6:11 PM Specimen: Urine Result Value Ref Range Report Preliminary Report: No growth to date. Sodium, urine, random Collection Time: 10/23/23 9:06 PM Result Value Ref Range Sodium, ur 40 mmol/L Chloride, urine, random Collection Time: 10/23/23 9:06 PM Result Value Ref Range Chloride, ur 25 mmol/L Osmolality, urine Collection Time: 10/23/23 9:06 PM Result Value Ref Range Osmo, ur 136 (L) 300 - 800 mOsm/kg POCT glucose Collection Time: 10/23/23 10:24 PM Result Value Ref Range Glucose, POC 127 70 - 199 mg/dL Basic metabolic panel Collection Time: 10/23/23 11:39 PM Result Value Ref Range Sodium 129 (L) 135 - 145 mmol/L Potassium, pl 4.1 3.3 - 4.9 mmol/L Chloride 97 97 - 110 mmol/L CO2 22 22 - 32 mmol/L Anion gap 10 2 - 15 mmol/L BUN 9 6 - 25 mg/dL Creatinine 0.90 0.80 - 1.30 mg/dL Glucose 115 70 - 199 mg/dL Calcium 8.2 (L) 8.5 - 10.3 mg/dL Magnesium Collection Time: 10/23/23 11:39 PM Result Value Ref Range Magnesium 1.7 1.4 - 2.5 mg/dL eGFR Collection Time: 10/23/23 11:39 PM Result Value Ref Range eGFR 85 >=60 mL/min/1.73 m2 Comprehensive metabolic panel Collection Time: 10/24/23 7:46 AM Result Value Ref Range Sodium 127 (L) 135 - 145 mmol/L Potassium, pl 4.6 3.3 - 4.9 mmol/L Chloride 96 (L) 97 - 110 mmol/L CO2 21 (L) 22 - 32 mmol/L Anion gap 10 2 - 15 mmol/L BUN 8 6 - 25 mg/dL Creatinine 0.80 0.80 - 1.30 mg/dL Glucose 116 70 - 199 mg/dL Calcium 8.4 (L) 8.5 - 10.3 mg/dL Bilirubin, total 0.5 0.1 - 1.2 mg/dL Protein, pl 5.9 (L) 6.5 - 8.5 g/dL Albumin 3.8 3.5 - 5.0 g/dL Alk phos 99 40 - 130 Units/L ALT 14 7 - 55 Units/L AST 16 10 - 50 Units/L CBC without differential Collection Time: 10/24/23 7:46 AM Result Value Ref Range WBC 6.7 3.8 - 9.9 K/cumm Hgb 11.6 (L) 13.0 - 17.5 g/dL Hct 33.8 (L) 38.9 - 50.3 % Plt 310 150 - 400 K/cumm MPV 9.3 9.1 - 12.3 fL RBC 3.96 (L) 4.30 - 5.80 M/cumm MCV 85.4 81.3 - 96.4 fL MCH 29.3 27.1 - 33.3 pg MCHC 34.3 32.3 - 35.7 g/dL RDW CV 12.9 11.1 - 14.9 % RDW SD 39.8 35.7 - 48.1 fL NRBC abs 0.00 0.00 - 0.01 K/cumm Lipid panel Collection Time: 10/24/23 7:46 AM Result Value Ref Range Cholesterol 101 30 - 199 mg/dL Triglycerides 79 <=149 mg/dL HDL 45 >=40 mg/dL LDL, calculated 40 <=129 mg/dL Non-HDL Cholesterol 56 mg/dL Chol/HDL ratio 2 Hemoglobin A1c Collection Time: 10/24/23 7:46 AM Result Value Ref Range Hgb A1C 6.9 (H) 4.0 - 5.6 % Estimated Average Glucose 151 mg/dL Thyroid Function Sampson Collection Time: 10/24/23 7:46 AM Result Value Ref Range TSH 1.81 0.30 - 4.20 mcIUnit/mL eGFR Collection Time: 10/24/23 7:46 AM Result Value Ref Range eGFR 88 >=60 mL/min/1.73 m2 POCT glucose Collection Time: 10/24/23 11:28 AM Result Value Ref Range Glucose, POC 136 70 - 199 mg/dL Glucose comment 1 Use This Result Osmolality, blood Collection Time: 10/24/23 12:26 PM Result Value Ref Range Osmo 264 (L) 275 - 295 mOsm/kg POCT glucose Collection Time: 10/24/23 5:07 PM Result Value Ref Range Glucose, POC 112 70 - 199 mg/dL POCT glucose Collection Time: 10/24/23 8:23 PM Result Value Ref Range Glucose, POC 188 70 - 199 mg/dL No results found. No results found for the last 90 days. Current Facility-Administered Medications Medication Dose Route Frequency Provider Last Rate Last Admin acetaminophen (TYLENOL) tablet 650 mg 650 mg oral Q4H PRN Jaren Goyal MD Or acetaminophen (TYLENOL) 32 mg/mL oral liquid 650 mg 650 mg feeding tube Q4H PRN Jaren Goyal MD Or acetaminophen (TYLENOL) suppository 650 mg 650 mg rectal Q4H PRN Jaren Goyal MD cefTRIAXone (ROCEPHIN) 1,000 mg/10 mL in sterile water (premix) 1,000 mg 1,000 mg intravenous Q24H PETER Jaren Goyal MD 1,000 mg at 10/24/23 0449 dextrose (GLUTOSE) 40 % gel 15 g 15 g oral Q15 Min PRN Jaren Goyal MD Or dextrose (D10W) 10% bolus 250 mL 250 mL intravenous Q15 Min PRN Jaren Goyal MD glucagon injection 1 mg 1 mg intramuscular Q30 Min PRN Jaren Goyal MD insulin lispro (HumaLOG, ADMELOG) 100 unit/mL injection 0-4 Units 0-4 Units subcutaneous Nightly Jaren Goyal MD insulin lispro (HumaLOG, ADMELOG) 100 unit/mL injection 0-5 Units 0-5 Units subcutaneous TID with meals Jaren Goyal MD polyethylene glycol (MIRALAX) packet 17 g 17 g oral Daily PRN Jaren Goyal MD ramelteon (ROZEREM) tablet 8 mg 8 mg oral Nightly PRN Jaren Goyal MD senna-docusate (PERICOLACE) 8.6-50 mg per tablet 1 tablet 1 tablet oral BID Jaren Goyal MD sodium chloride 0.9% infusion 75 mL/hr intravenous Continuous Jaren Goyal MD 75 mL/hrat 10/23/232248 75 mL/hr at 10/23/232248 Assessment/Plan Principal Problem: Hyponatremia Active Problems: Acute cystitis without hematuria Generalized weakness 83 years old male with past medical history significant for hypertension, hyperlipidemia, CAD, DM type 2 with chronic urinary retention with indwelling Mariee catheter, was admitted with generalized weakness and fatigue and lightheadedness was found have hyponatremia with sodium 122 and complicated UTI. #generalized weakness and fatigue # physical debility -likely multifactorial due to age-related physical debility, acute physical deconditioning due to hyponatremia and complicated UTI. -PT/OT on board # acute on chronic hyponatremia Sodium 122-->129-> 127, received NS 1 L bolus in ED, currently on NS at 75 mL/hour -per patient he takes salt tab 500 mg once daily -patient tolerating oral diet, discontinue IVF -restart salt tab 500 mg daily -check serum osmolality, urine osmolality, urine sodium Nephrology on consult -Monitor RFP, pending # acute cystitis with hematuria due to indwelling Mariee catheter, unlikely # BPH with acute on chronic urinary retention -resume finasteride, patient can not take tamsulosin due to sulfa allergy -maintain Mariee catheter in place, clear urine output, per patient cath was exchanged on 10/21 at [facility] -UA suggestive for UTI, urine culture pending -dc ceftriaxone IV, cx no growth -urology on board appreciate recommendations # history of hypertension/hyperlipidemia, pt deny CAD -Plavix and aspirin on hold due to hematuria - resume Lipitor, amlodipine 5 mg daily -pt deny cad, pad, hx of CVA -will request record from PCP's office Shona Daly, as he is on both asa and plavix # DM type 2 with hyperglycemia -hold oral hypoglycemic agents Accu-Chek with dialysis # anxiety/depression -resume Zolfat and alprazolam #normocytic normochromic anemia Stable hemoglobin, continue to monitor CBC DVT prophylaxis: SCDs, hold chemoprophylaxis due to hematuria * Erin Zarate - 10/24/2023 3:21 PM CDT Spiritual Care Note Shona Salvador MCM.Div Pt's is Yarsani and attends [facility], pt sometimes attends with her when there is work to be done. Pt enjoys walking and is looking forward to getting up and walking again. Hopes to discharge tomorrow. Door Maker provided prayer- pt appreciated PCV. 10/24/23 1500 Time Spent Start Time 1500 Patient Spiritual Assessment Spirituality Assessed Yes Restorationism Affiliation Druze Active in Spiritism No Clinical Encounter Type Visited With Patient Response Type Routine visit Routine Visit Introduction Outcomes and Progress Aligning care with patient's values Achieved Preserve dignity and respect Achieved Demonstrating care and respect Achieved Interventions Interventions Active listening;Prayer * Zach Arellano, OT - 10/24/2023 9:58 AM CDT Occupational Therapy 10/24/23 0931 General Chart Reviewed Yes Session Type Evaluation OT Received On 10/24/23 Safe Environment Arm band checked;Patient found in supine;Gait belt utilized for all out of bed mobility Subjective Agreeable to Therapy Treatment Duration 11 Minutes Additional Pertinent History Admit Dx: Hyponatremia, generalized weakness PMH: HTN, HLD, DM, AAA, Family/Caregiver Present No Occupational Therapy-Patient Goal To go home Current Functional Status OT Functional Mobility Pt recieved supine in bed on room air with IV and mariee catheter in place. Completed bed mobility supine > sitting EOB with SBA. Sit <> stands with SBA/CGA due to impulsivity. Functional mobility in room/hallway without device with CGA/min assist initially progressing to CGA/SBA. Fair safety awareness, dynamic standing balance, and activity tolerance noted at this time. OT Self Care LB dressing seated EOB with SBA/CGA. Simulated toileting with SBA/CGA. Simulated grooming with seutp assist seated in chair. OT Cognition A&OX4, Intact based on functional observations, occasionally impulsive during transfers. OT Communication Intact Precautions Precautions Bed/Chair Alarm;Fall risk Home Living Type of Home House Home Layout One level Home Access Stairs to enter with rails Entrance Stairs-Number of Steps 6 Bathroom Shower/Tub Walk-in shower with threshold Bathroom Toilet Standard Home Mobility Equipment-Available Wheeled walker;Single point cane Home Mobility Equipment-Currently Using None Prior Function Level of [place] Independent with ADLs;Independent functional transfers;Independent with ambulation;Independent with homemaking with ambulation Lives With Spouse Receives Help From Spouse/Significant other Driving Yes Mode of Transportation Car;Driven by self ADL Assistance Independent Instrumental ADL (IADL) Assistance Needs assistance Meal Prep Total Laundry Independent Cleaning Independent Medical Management Independent Fall within the last 6 months No Pain Assessment Pain Assessment No/denies pain Activity Tolerance Endurance Tolerates 10 - 20 min activity with multiple rests Activity Tolerance Comments Limited by generalized deconditioning Cognition Overall Cognitive Status WFL (Based on functional observations) Arousal/Alertness Alert Attention Span Appears intact Memory Appears intact Current communication Appears Intact Orientation Oriented X4 (person, place, time, situation) Following Commands Follows all commands and directions without difficulty Safety Judgment Decreased awareness of need for assistance Awareness of Errors Assistance required to identify errors made Insight Fully aware of deficits Problem Solving Able to problem solve independently Compliance/Behavior Easy to engage Sensation Light Touch WFL Deep Pressure WFL Numbness/Tingling No Coordination Fine Motor WFL Serial Opposition WFL RUE Assessment RUE Assessment WFL RUE Comments Strength 4+/5 grossly LUE Assessment LUE Assessment WFL LUE Comments Strength 4+/5 grossly Safe Environment End of Therapy Session Safe Environment End of Therapy Session Patient left in chair;Chair alarm in place and activated;Call light within reach;Overbed table within reach;Bed in lowest position with wheels locked Assessment Prognosis Good Problem List Decreased safe judgment during ADL;Decreased endurance;Decreased balance;Decreased ADLindependence;Decreased IADL independence;Gait Barriers to Discharge Current Mobility Status;Current ADL Status Plan Plan Plan of care initiated Recommendation/Plan OT Recommendation (S) Home with family;Home Health OT Patient at high risk for Injury due to reduced functional status OT Frequency during current admission 3-5x/wk Treatment/Interventions during current admission ADL/IADL retraining;Balance Training;Bed mobility;Compensatory technique education;Endurance training;Equipment eval/education;Functional activity;Functional mobility training;Functional transfer training;Parent/caregiver training and education;Positioning;Range of motion;Relaxation techniques;Strengthening;Therapeutic activity;Therapeutic exercise;Transfer training;Upper extremity motor function/functional skills OT - Next Appointment 11/07/23 OT Evaluation Complete Yes Pt will benefit from skilled OT in order to increase safety and independence with ADL/IADls, decrease fall risk, promote healing, return to PLOF, decrease pain, and increase quality of life. Education provided to the patient/caregiver regarding the role of occupational therapy, plan of care, goals of therapy, rationale for progressing mobility and use of call light. Good understanding. Cotx with Jacqui PT for safety of patient and staff due to current diagnosis, medical status, and/or level of physical assist needed due to weakness or equipment management. Multi-Disciplinary Problems (from Occupational Therapy) Active Problems Problem: OT Misc Start Date: 10/24/23 Goal Start Date Expected End Date End Date OT STG - Misc 1 10/24/23 11/07/23 -- Goal Details: 1) LE ADL SBA WITH AE PRN. Goal Start Date Expected End Date End Date OT STG - Misc 2 10/24/23 11/07/23 -- Goal Details: 2) FUNCTIONAL MOBILITY TO/FROM BATHROOM AND ALL ASPECTS TOILETING MODIFIED INDEP WITHDME. Goal Start Date Expected End Date End Date OT STG - Misc 3 10/24/23 11/07/23 -- Goal Details: 3) STAND AT SINK SBA X4 MIN FOR ADL WITH GOOD BALANCE. Goal Start Date Expected End Date End Date OT STG - Misc 4 10/24/23 11/07/23 -- Goal Details: 4) PERFORM ITEM RETRIEVAL SBA FROM HIGH/LOW POSITIONS WITH GOOD BALANCE/SAFETY. * Yu Vivar LCSW - 10/24/2023 9:54 AM CDT IP Social Work Assessment Social History: Prior to admission the patient was from home with spouse. Support from daughter and neighbor. Pt drives, though reported his spouse has been driving recently. Home DME: walker (generally does not use but has from previous ankle injury). Impressions: DISABILITY HEARING OFFICER met with patient at bedside to discuss dc planning. Patient was A&Ox 4, pleasant, and cooperative. Patient from home and anticipate returning home at id. Previous stays at [facility]. Pt reported he was seen in ED at [place] [id number] on Tuesday but displeased with service. Pt follows with PCP regularly. Based on a comprehensive family assessment, assistance with instrumental activities of daily livingafter discharge will be provided by Self w/ support from Family/Friends. Pt/family has the knowledge of available resources and that combining them with their existing resources will suffice and sustain care at discharge. The treatment team is aware of this information. All are in agreement with the aftercare plan. Problem: Patient identified for social work consult due to high risk for readmission or high utilizer patient, need for complex higher level of care or skilled nursing planning for care. Meliton Delacruz would benefit from continued therapy services at d/c. OT recs home with family, [facility] OT. Goal: Social work will work with Meliton Delacruz and family for discharge planning needs.Social work assess for possible complex discharge concerns. Provide resources and education to help reduce readmission and improve skilled nursing health. Social Work Plan: No social service needs identified at this time. CM following for discharge planning and progression of care and can consult ss if needs arise Communication: Communications Important Message from Medicare notice given to patient?: Yes (10/23/23) (10/24/23917) Additional Information: Primary Care Provider: Meliton Washburn MD Assessment: Discharge Planning Medication Assistance: None Does the patient need discharge transport arranged?: No (10/23/232219) Social Determinates of Health: Transportation Needs: No Transportation Needs (10/24/2023) PRAPARE - Transportation Lack of Transportation (Medical): No Lack of Transportation (Non-Medical): No Social Connections: Moderately Isolated (10/24/2023) Social Connection and Isolation Panel [NHANES] Frequency of Communication with Friends and Family: More than three times a week Frequency of Social Gatherings with Friends and Family: More than three times a week Attends Restorationism Services: Never Active Member of Clubs or Organizations: No Attends Club or Organization Meetings: Never Marital Status: Food Insecurity: No Food Insecurity (10/24/2023) Hunger Vital Sign Worried About Running Out of Food in the Last Year: Never true Ran Out of Food in the Last Year: Never true Housing Stability: Not on file Financial Resource Strain: Low Risk (10/24/2023) Overall Financial Resource Strain (CARDIA) Difficulty of Paying Living Expenses: Not hard at all Questions encouraged and answered. Will continue to follow progression of care and monitor for further discharge needs. Yu Vivar LCSW 10/24/2023 9:58 AM * Jacqui Chu, PT - 10/24/2023 9:42 AM CDT Physical Therapy 10/24/23 0928 General Chart Reviewed Yes Session Type Evaluation PT Received On 10/24/23 Safe Environment Arm band checked;Gait belt utilized for all out of bed mobility;Patient found in supine Subjective Agreeable to Therapy Additional Pertinent History Dx: hyponatremia, cystitis. Patient reports that he has not been doingwell for awhile. He was hospitalized [facility] a week ago for 3 days, was discharged Tuesday, states that he was back in the emergency room that evening because his Mariee catheter was clogged. He states that they were able to exchange it and it was flowing freely and he was discharged to home from the ED that evening. However he has been fatigued with a poor appetite and constipated. He states his last normal bowel movement was 2 days ago on Tuesday. No blood or black appearance reported to the stool. He endorses nausea and generalized weakness. He went back to [place] emergency room yesterday, states he was discharged to home and told to take salt tabs for his sodium. He states that today when he stood up he felt a little lightheaded. Family/Caregiver Present No Physical Therapy-Patient Goal Disch home. Precautions Precautions Bed/Chair Alarm;Fall risk Home Living Type of Home House Home Layout One level Home Access Stairs to enter with rails Entrance Stairs-Number of Steps 6 Bathroom Shower/Tub Walk-in shower with threshold Bathroom Toilet Standard Home Mobility Equipment-Available Wheeled walker;Single point cane Home Mobility Equipment-Currently Using None Prior Function Level of [place] Independent with homemaking with ambulation;Independent functional transfers;Independent with ADLs Lives With Spouse Receives Help From Spouse/Significant other Driving Yes Mode of Transportation Driven by self ADL Assistance Independent Vocational/Occupation Retired Type of Occupation from [employer] Fall within the last 6 months No Pain Assessment Pain Assessment No/denies pain Cognition Orientation Oriented X4 (person, place, time, situation) Following Commands Follows all commands and directions without difficulty Compliance/Behavior Easy to engage Bed Mobility 1 Bed Mobility From 1 Supine Bed Mobility Type 1 To Bed Mobility to 1 Edge of bed Level of Assistance 1 Independent Transfer 1 Transfer From 1 Sit Transfer Type 1 To and from Transfer to 1 Stand Technique 1 Sit to stand;Stand to sit Transfer Device 1 Hand held assist Transfer Level of Assistance 1 Contact Guard Assist Ambulation 1 Distance (ft) 1 100 Surface 1 Level tile Device 1 Hand held assist Assistance 1 Contact Guard Assist Gait: Requires verbal cues to 1 Improve upright posture;Increase step length Gait Deviations 1 Lissette - decreased;Step length - decreased;Posture - flexed Ambulation Comments 1 slightly unsteady at times RUE Assessment RUE Assessment WFL LUE Assessment LUE Assessment WFL RLE Assessment RLE Assessment WFL LLE Assessment LLE Assessment WFL PT Treatment/Exercise Comments PT Treatment/Exercise Comments bilat le strength grossly 4/5. Safe Environment End of Therapy Session Safe Environment End of Therapy Session Patient left in chair;Chair alarm in place and activated;RNnotified;Call light within reach;Overbed table within reach;Bed in lowest position with wheels locked Asses sment Prognosis Good Problem List Gait deviations;Decreased endurance;Decreased strength Barriers to Discharge None Plan Plan Plan of care initiated Recommendation/Plan PT Recommendation/Plan (S) Home with family;Home Health PT;Home Health OT PT Frequency during current admission 5-7x/wk Treatment/Interventions during current admission Balance Training;Endurance training;Gait training;Strengthening PT - Next Appointment 11/07/23 PT Evaluation Complete Yes Multi-Disciplinary Problems (from Physical Therapy) Active Problems Problem: Mobility Start Date: 10/24/23 Goal Start Date Expected End Date End Date LTG - Patient will demonstrate functional mobility with the following level of assist: 10/24/23 11/07/23 -- Goal Details: Pt will be able to transfer and ambulate w sba of 1, Problem: Mobility Start Date: 10/24/23 Goal Start Date Expected End Date End Date LTG - Patient will navigate 4-6 steps with rails/device 10/24/23 10/31/23 -- Educated the patient to the role of physical therapy, plan of care, goals of therapy, rationale forprogressing mobility. Patient was left with all needs met and equipment intact. Mobility and ADL status posted at bedsideand within medical record. * Félix Patiño MD - 10/24/2023 7:23 AM CDT .General Medicine Daily Progress Subjective Patient was seen and examined today, no acute overnight changes, remains afebrile with stable vitalsigns, feeling better today, denies any acute complaints, Mariee catheter with clear urine output Past Medical History: Diagnosis Date Arthritis Enlarged prostate GERD (gastroesophageal reflux disease) Heart murmur High cholesterol HTN (hypertension) Type 2 diabetes mellitus (HCC) Objective Vitals: 24hr Min/Max: Temp Min: 36.2 ??C (97.1 ??F) Max: 36.9 ??C (98.4 ??F) Pulse Min: 52 Max: 67 BP Min: 126/66 Max: 151/79 Resp Min: 13 Max: 21 SpO2 Min: 98 % Max: 100 % Most Recent : Vitals: 10/24/23 0352 BP: 139/63 Pulse: 61 Resp: 18 Temp: 36.9 ??C (98.4 ??F) SpO2: 98% I/O last 2 completed shifts: In: 2225 [P.O.:240; I.V.:975; IV Piggyback:1010] Out: 2500 [Urine:2500] No intake/output data recorded. Physical Exam: General alert and oriented x3 Cardiovascular RRR, normal S1 and S2, no murmurs or gallops Respiratory, clear to auscultation bilaterally, no coarse sounds, wheezing, rales, not using accessory muscles, able to speak full sentences Abdominal nondistended, soft, normal bowel sounds, no rebound or guarding Extremities no edema, palpable pulses bilaterally Neurological alert and oriented x3, intact cranial nerve, intact sensation all extremities, intact muscle strength, normal speech, normal gait. : mariee cath in place with clear urine output Lab/Radiology/Diagnostic Review: Laboratory review: Lab results in the last 12 hours: Recent Results (from the past 12 hour(s)) Basic metabolic panel Collection Time: 10/23/23 11:39 PM Result Value Ref Range Sodium 129 (L) 135 - 145 mmol/L Potassium, pl 4.1 3.3 - 4.9 mmol/L Chloride 97 97 - 110 mmol/L CO2 22 22 - 32 mmol/L Anion gap 10 2 - 15 mmol/L BUN 9 6 - 25 mg/dL Creatinine 0.90 0.80 - 1.30 mg/dL Glucose 115 70 - 199 mg/dL Calcium 8.2 (L) 8.5 - 10.3 mg/dL Magnesium Collection Time: 10/23/23 11:39 PM Result Value Ref Range Magnesium 1.7 1.4 - 2.5 mg/dL eGFR Collection Time: 10/23/23 11:39 PM Result Value Ref Range eGFR 85 >=60 mL/min/1.73 m2 Comprehensive metabolic panel Collection Time: 10/24/23 7:46 AM Result Value Ref Range Sodium 127 (L) 135 - 145 mmol/L Potassium, pl 4.6 3.3 - 4.9 mmol/L Chloride 96 (L) 97 - 110 mmol/L CO2 21 (L) 22 - 32 mmol/L Anion gap 10 2 - 15 mmol/L BUN 8 6 - 25 mg/dL Creatinine 0.80 0.80 - 1.30 mg/dL Glucose 116 70 - 199 mg/dL Calcium 8.4 (L) 8.5 - 10.3 mg/dL Bilirubin, total 0.5 0.1 - 1.2 mg/dL Protein, pl 5.9 (L) 6.5 - 8.5 g/dL Albumin 3.8 3.5 - 5.0 g/dL Alk phos 99 40 - 130 Units/L ALT 14 7 - 55 Units/L AST 16 10 - 50 Units/L CBC without differential Collection Time: 10/24/23 7:46 AM Result Value Ref Range WBC 6.7 3.8 - 9.9 K/cumm Hgb 11.6 (L) 13.0 - 17.5 g/dL Hct 33.8 (L) 38.9 - 50.3 % Plt 310 150 - 400 K/cumm MPV 9.3 9.1 - 12.3 fL RBC 3.96 (L) 4.30 - 5.80 M/cumm MCV 85.4 81.3 - 96.4 fL MCH 29.3 27.1 - 33.3 pg MCHC 34.3 32.3 - 35.7 g/dL RDW CV 12.9 11.1 - 14.9 % RDW SD 39.8 35.7 - 48.1 fL NRBC abs 0.00 0.00 - 0.01 K/cumm Lipid panel Collection Time: 10/24/23 7:46 AM Result Value Ref Range Cholesterol 101 30 - 199 mg/dL Triglycerides 79 <=149 mg/dL HDL 45 >=40 mg/dL LDL, calculated 40 <=129 mg/dL Non-HDL Cholesterol 56 mg/dL Chol/HDL ratio 2 Hemoglobin A1c Collection Time: 10/24/23 7:46 AM Result Value Ref Range Hgb A1C 6.9 (H) 4.0 - 5.6 % Estimated Average Glucose 151 mg/dL Thyroid Function Sampson Collection Time: 10/24/23 7:46 AM Result Value Ref Range TSH 1.81 0.30 - 4.20 mcIUnit/mL eGFR Collection Time: 10/24/23 7:46 AM Result Value Ref Range eGFR 88 >=60 mL/min/1.73 m2 Recent Results (from the past 48 hour(s)) CBC with auto differential Collection Time: 10/23/23 3:47 PM Result Value Ref Range WBC 7.7 3.8 - 9.9 K/cumm Hgb 12.5 (L) 13.0 - 17.5 g/dL Hct 34.9 (L) 38.9 - 50.3 % Plt 327 150 - 400 K/cumm MPV 9.0 (L) 9.1 - 12.3 fL RBC 4.25 (L) 4.30 - 5.80 M/cumm MCV 82.1 81.3 - 96.4 fL MCH 29.4 27.1 - 33.3 pg MCHC 35.8 (H) 32.3 - 35.7 g/dL RDW CV 12.6 11.1 - 14.9 % RDW SD 37.8 35.7 - 48.1 fL NRBC abs 0.00 0.00 - 0.01 K/cumm Comprehensive metabolic panel Collection Time: 10/23/23 3:47 PM Result Value Ref Range Sodium 122 (L) 135 - 145 mmol/L Potassium, pl 4.4 3.3 - 4.9 mmol/L Chloride 88 (L) 97 - 110 mmol/L CO2 19 (L) 22 - 32 mmol/L Anion gap 15 2 - 15 mmol/L BUN 11 6 - 25 mg/dL Creatinine 0.80 0.80 - 1.30 mg/dL Glucose 120 70 - 199 mg/dL Calcium 9.0 8.5 - 10.3 mg/dL Bilirubin, total 0.4 0.1 - 1.2 mg/dL Protein, pl 6.8 6.5 - 8.5 g/dL Albumin 4.3 3.5 - 5.0 g/dL Alk phos 112 40 - 130 Units/L ALT 17 7 - 55 Units/L AST 20 10 - 50 Units/L Differential, auto Collection Time: 10/23/23 3:47 PM Result Value Ref Range Neutrophil abs 6.4 1.5 - 6.5 K/cumm Imm gran abs 0.0 0.0 - 0.1 K/cumm Lymphocyte abs 0.7 (L) 0.8 - 3.3 K/cumm Monocyte abs 0.4 0.2 - 0.8 K/cumm Eosinophil abs 0.0 0.0 - 0.5 K/cumm Basophil abs 0.0 0.0 - 0.1 K/cumm Neutrophil pct 83.8 % Imm gran pct 0.4 % Lymphocyte pct 9.2 % Monocyte pct 5.8 % Eosinophil pct 0.3 % Basophil pct 0.5 % eGFR Collection Time: 10/23/23 3:47 PM Result Value Ref Range eGFR 88 >=60 mL/min/1.73 m2 Urinalysis reflex to microscopic and culture Urine Collection Time: 10/23/23 6:11 PM Specimen: Urine Result Value Ref Range Color, ur Madai Yellow Clarity, ur Cloudy (A) Clear Specific gravity, ur 1.016 1.003 - 1.030 pH, urine 8.0 Protein, ur ql 1+ (A) Negative Glucose, ur ql Negative Negative Ketones, ur 2+ (A) Negative Bilirubin, ur Negative Negative Blood, ur 3+ (A) Negative Urobilinogen, ur 2.0 (A) <2.0 mg/dL Nitrite, ur Negative Negative Leukocyte esterase, ur 2+ (A) Negative UA reflex comment Reflex to microscopic UA will be performed. Urinalysis, microscopic only Collection Time: 10/23/23 6:11 PM Result Value Ref Range WBC, ur 21-50 (A) 0 - 5 /HPF RBC, ur >50 (A) 0 - 2 /HPF Mucous, ur Present (A) Culture Reflex Comment Reflex to urine culture will be performed. Sodium, urine, random Collection Time: 10/23/23 9:06 PM Result Value Ref Range Sodium, ur 40 mmol/L Chloride, urine, random Collection Time: 10/23/23 9:06 PM Result Value Ref Range Chloride, ur 25 mmol/L Osmolality, urine Collection Time: 10/23/23 9:06 PM Result Value Ref Range Osmo, ur 136 (L) 300 - 800 mOsm/kg POCT glucose Collection Time: 10/23/23 10:24 PM Result Value Ref Range Glucose, POC 127 70 - 199 mg/dL Basic metabolic panel Collection Time: 10/23/23 11:39 PM Result Value Ref Range Sodium 129 (L) 135 - 145 mmol/L Potassium, pl 4.1 3.3 - 4.9 mmol/L Chloride 97 97 - 110 mmol/L CO2 22 22 - 32 mmol/L Anion gap 10 2 - 15 mmol/L BUN 9 6 - 25 mg/dL Creatinine 0.90 0.80 - 1.30 mg/dL Glucose 115 70 - 199 mg/dL Calcium 8.2 (L) 8.5 - 10.3 mg/dL Magnesium Collection Time: 10/23/23 11:39 PM Result Value Ref Range Magnesium 1.7 1.4 - 2.5 mg/dL eGFR Collection Time: 10/23/23 11:39 PM Result Value Ref Range eGFR 85 >=60 mL/min/1.73 m2 No results found. No results found for the last 90 days. Current Facility-Administered Medications Medication Dose Route Frequency Provider Last Rate Last Admin acetaminophen (TYLENOL) tablet 650 mg 650 mg oral Q4H PRN Jaren Goyal MD Or acetaminophen (TYLENOL) 32 mg/mL oral liquid 650 mg 650 mg feeding tube Q4H PRN Jaren Goyal MD Or acetaminophen (TYLENOL) suppository 650 mg 650 mg rectal Q4H PRN Jaren Goyal MD cefTRIAXone (ROCEPHIN) 1,000 mg/10 mL in sterile water (premix) 1,000 mg 1,000 mg intravenous Q24H [facility] Jaren Goyal MD 1,000 mg at 10/24/23 0449 dextrose (GLUTOSE) 40 % gel 15 g 15 g oral Q15 Min PRN Jaren Goyal MD Or dextrose (D10W) 10% bolus 250 mL 250 mL intravenous Q15 Min Jaren Collins MD glucagon injection 1 mg 1 mg intramuscular Q30 Min PRJaren Watters MD insulin lispro (HumaLOG, ADMELOG) 100 unit/mL injection 0-4 Units 0-4 Units subcutaneous Nightly Jaren Goyal MD insulin lispro (HumaLOG, ADMELOG) 100 unit/mL injection 0-5 Units 0-5 Units subcutaneous TID with meals Jaren Goyal MD polyethylene glycol (MIRALAX) packet 17 g 17 g oral Daily PRN Jaren Goyal MD ramelteon (ROZEREM) tablet 8 mg 8 mg oral Nightly PRN Jaren Goyal MD senna-docusate (PERICOLACE) 8.6-50 mg per tablet 1 tablet 1 tablet oral BID Jaren Goyal MD sodium chloride 0.9% infusion 75 mL/hr intravenous Continuous Jaren Goyal MD 75 mL/hrat 10/23/232248 75 mL/hr at 10/23/232248 Assessment/Plan Principal Problem: Hyponatremia Active Problems: Acute cystitis without hematuria Generalized weakness 83 years old male with past medical history significant for hypertension, hyperlipidemia, CAD, DM type 2 with chronic urinary retention with indwelling Mariee catheter, was admitted with generalized weakness and fatigue and lightheadedness was found have hyponatremia with sodium 122 and complicated UTI. #generalized weakness and fatigue # physical debility -likely multifactorial due to age-related physical debility, acute physical deconditioning due to hyponatremia and complicated UTI. -PT/OT on board # acute on chronic hyponatremia Sodium 122-->129-> 127, received NS 1 L bolus in ED, currently on NS at 75 mL/hour -per patient he takes salt tab 500 mg once daily -patient tolerating oral diet, discontinue IVF -restart salt tab 500 mg daily -check serum osmolality, urine osmolality, urine sodium Nephrology on consult: Dr. Park was notified -Monitor BMP # acute cystitis with hematuria due to indwelling Mariee catheter # BPH with acute on chronic urinary retention -resume finasteride, patient can not take tamsulosin due to sulfa allergy -maintain Mariee catheter in place, clear urine output, per patient cath was exchanged on 10/21 at [facility] -UA suggestive for UTI, urine culture pending -on ceftriaxone IV -neurology on board appreciate recommendations # history of hypertension/hyperlipidemia/CAD -Plavix and aspirin on hold due to hematuria - resume Lipitor, amlodipine 5 mg daily # DM type 2 with hyperglycemia -hold oral hypoglycemic agents Accu-Chek with dialysis # anxiety/depression -resume Zolfat and alprazolam #normocytic normochromic anemia Stable hemoglobin, continue to monitor CBC DVT prophylaxis: SCDs, hold chemoprophylaxis due to hematuria documented in this encounter H&P Notes * Jaren Goyal MD - 10/23/2023 8:37 PM CDT Images from the original note were not included. History and Physical Date of Service: 10/23/2023 Primary Care Physician: Meliton Washubrn MD [phone] CHIEF COMPLAINT: Patient is a 83 y.o. male with a PMHx significant for hypertension, hyperlipidemia, diabetes, BPH. Presents to the ED with a chief complaint of fatigue, hematuria. HPI: Patient reports that he has not been doing well for awhile. He was hospitalized [facility] aweek ago for 3 days, was discharged Tuesday afternoon, states that he was back in the emergency room that evening because his Mariee catheter was clogged. He states that they were able to exchange it and it was flowing freely and he was discharged to home from the ED that evening. However he has been fatigued with a poor appetite and constipated. He states his last normal bowel movement was 2 daysago on Tuesday. No blood or black appearance reported to the stool. He endorses nausea and generalized weakness. He went back to [place] emergency room yesterday, states he was discharged to home andtold to take salt tabs for his sodium. He states that today when he stood up he felt a little lightheaded. No syncope or vertigo type symptoms. States that today he also noted gross hematuria in his Mariee catheter which she has had issues with in the past prompting presentation to the emergency room. He denies chest pain, shortness on breath, headache, palpitations, diaphoresis, abdominal pain, ab dominal distention, lower extremity swelling Past Medical History: Diagnosis Date Arthritis Enlarged prostate GERD (gastroesophageal reflux disease) Heart murmur High cholesterol HTN (hypertension) Type 2 diabetes mellitus (HCC) Past Surgical History: Procedure Laterality Date ANKLE FRACTURE SURGERY Right x 2 CHOLECYSTECTOMY (Not in a hospital admission) Allergies Allergen Reactions Sulfa (Sulfonamide Antibiotics) Unknown Social History Tobacco Use Smoking status: Former Current packs/day: 0.50 Average packs/day: 0.5 packs/day for 49.3 years (24.7 ttl pk-yrs) Types: Cigarettes Start date: 1974 Smokeless tobacco: Never Substance and Sexual Activity Drug use: Not on file Sexual activity: Not on file Alcohol Use: Not on file Family History Problem Relation Age of Onset Cancer Mother Stroke Father Heart attack Father Heart disease Other Stroke Other Review of Systems: Review of Systems Constitutional: Positive for appetite change (decreased) and fatigue. HENT: Negative for congestion. Eyes: Negative for pain and redness. Respiratory: Negative for cough and shortness of breath. Cardiovascular: Negative for chest pain, palpitations and leg swelling. Gastrointestinal: Positive for constipation and nausea. Negative for abdominal distention, abdominal pain, diarrhea and vomiting. Endocrine: Negative for polydipsia and polyphagia. Genitourinary: Positive for hematuria. Negative for dysuria and flank pain. Musculoskeletal: Negative for back pain. Skin: Negative for color change and pallor. Neurological: Positive for light-headedness. Negative for headaches. OBJECTIVE: Vitals: Arrival Vitals [10/23/23 1528] Temp 36.2 ??C (97.1 ??F) Pulse 52 Resp 18 BP 151/79 SpO2 98 % Temp src Temporal Heart Rate Source Patient Position BP Location FiO2 (%) Most Recent : Vitals: 10/23/23 1528 10/23/23 1740 10/23/23 1750 10/23/23 1809 BP: 151/79 144/57 126/66 Pulse: 52 62 62 61 Resp: 18 16 21 Temp: 36.2 ??C (97.1 ??F) TempSrc: Temporal SpO2: 98% 100% 99% Weight: 81.6 kg (180 lb) Height: 182.9 cm (6') Physical Exam: Physical Exam Vitals reviewed. Constitutional: General: He is not in acute distress. Appearance: He is not ill-appearing, toxic-appearing or diaphoretic. HENT: Head: Normocephalic and atraumatic. Right Ear: External ear normal. Left Ear: External ear normal. Nose: Nose normal. Mouth/Throat: Mouth: Mucous membranes are moist. Eyes: Extraocular Movements: Extraocular movements intact. Pupils: Pupils are equal, round, and reactive to light. Cardiovascular: Rate and Rhythm: Normal rate and regular rhythm. Pulses: Normal pulses. Heart sounds: Normal heart sounds. Pulmonary: Effort: Pulmonary effort is normal. Breath sounds: Normal breath sounds. Abdominal: General: There is no distension. Palpations: Abdomen is soft. Tenderness: There is no abdominal tenderness. Musculoskeletal: General: Normal range of motion. Cervical back: Normal range of motion and neck supple. Right lower leg: No edema. Left lower leg: No edema. Skin: General: Skin is warm and dry. Neurological: General: No focal deficit present. Mental Status: He is alert and oriented to person, place, and time. Psychiatric: Mood and Affect: Mood normal. Behavior: Behavior normal. Lab/Radiology/Diagnostic Review: Recent Results (from the past 24 hour(s)) CBC with auto differential Collection Time: 10/23/23 3:47 PM Result Value Ref Range WBC 7.7 3.8 - 9.9 K/cumm Hgb 12.5 (L) 13.0 - 17.5 g/dL Hct 34.9 (L) 38.9 - 50.3 % Plt 327 150 - 400 K/cumm MPV 9.0 (L) 9.1 - 12.3 fL RBC 4.25 (L) 4.30 - 5.80 M/cumm MCV 82.1 81.3 - 96.4 fL MCH 29.4 27.1 - 33.3 pg MCHC 35.8 (H) 32.3 - 35.7 g/dL RDW CV 12.6 11.1 - 14.9 % RDW SD 37.8 35.7 - 48.1 fL NRBC abs 0.00 0.00 - 0.01 K/cumm Comprehensive metabolic panel Collection Time: 10/23/23 3:47 PM Result Value Ref Range Sodium 122 (L) 135 - 145 mmol/L Potassium, pl 4.4 3.3 - 4.9 mmol/L Chloride 88 (L) 97 - 110 mmol/L CO2 19 (L) 22 - 32 mmol/L Anion gap 15 2 - 15 mmol/L BUN 11 6 - 25 mg/dL Creatinine 0.80 0.80 - 1.30 mg/dL Glucose 120 70 - 199 mg/dL Calcium 9.0 8.5 - 10.3 mg/dL Bilirubin, total 0.4 0.1 - 1.2 mg/dL Protein, pl 6.8 6.5 - 8.5 g/dL Albumin 4.3 3.5 - 5.0 g/dL Alk phos 112 40 - 130 Units/L ALT 17 7 - 55 Units/L AST 20 10 - 50 Units/L Differential, auto Collection Time: 10/23/23 3:47 PM Result Value Ref Range Neutrophil abs 6.4 1.5 - 6.5 K/cumm Imm gran abs 0.0 0.0 - 0.1 K/cumm Lymphocyte abs 0.7 (L) 0.8 - 3.3 K/cumm Monocyte abs 0.4 0.2 - 0.8 K/cumm Eosinophil abs 0.0 0.0 - 0.5 K/cumm Basophil abs 0.0 0.0 - 0.1 K/cumm Neutrophil pct 83.8 % Imm gran pct 0.4 % Lymphocyte pct 9.2 % Monocyte pct 5.8 % Eosinophil pct 0.3 % Basophil pct 0.5 % eGFR Collection Time: 10/23/23 3:47 PM Result Value Ref Range eGFR 88 >=60 mL/min/1.73 m2 Urinalysis reflex to microscopic and culture Urine Collection Time: 10/23/23 6:11 PM Specimen: Urine Result Value Ref Range Color, ur Madai Yellow Clarity, ur Cloudy (A) Clear Specific gravity, ur 1.016 1.003 - 1.030 pH, urine 8.0 Protein, ur ql 1+ (A) Negative Glucose, ur ql Negative Negative Ketones, ur 2+ (A) Negative Bilirubin, ur Negative Negative Blood, ur 3+ (A) Negative Urobilinogen, ur 2.0 (A) <2.0 mg/dL Nitrite, ur Negative Negative Leukocyte esterase, ur 2+ (A) Negative UA reflex comment Reflex to microscopic UA will be performed. Urinalysis, microscopic only Collection Time: 10/23/23 6:11 PM Result Value Ref Range WBC, ur 21-50 (A) 0 - 5 /HPF RBC, ur >50 (A) 0 - 2 /HPF Mucous, ur Present (A) Culture Reflex Comment Reflex to urine culture will be performed. ASSESSMENT/PLAN: Principal Problem: Hyponatremia Active Problems: Acute cystitis without hematuria Generalized weakness Resolved Problems: No resolved hospital problems. Generalized weakness: Patient presents with chief complaint of fatigue/generalized weakness, decreased appetite. Workup thus far notable for hyponatremia and urinary tract infection, see below for details in management. Workup was otherwise included evaluation for: -anemia: Hemoglobin stable at patient's baseline. -ACS: No chest pain or shortness a breath. -arrhythmia: Normal sinus rhythm on auscultation EKG. Continue telemetry monitoring. -hypo or hyperglycemia: Glucose 120 on presentation. -hypoxia/hypercapnia: Maintaining appropriate O2 saturations on room air. No respiratory distress or complaints. -electrolyte derangements other: No others appreciated on initial laboratory data. Magnesium and phosphorus levels pending. -CVA: No focal neurological symptoms reported. No focal neurological deficits appreciated on examination. Hyponatremia: Sodium 122 on presentation. Patient received in the emergency room. No repeat level yet drawn, will obtain now. Continue to trend sodium and adjust ivf as needed Urinary tract infection: Noted UA results. This is a chronic indwelling Mariee catheter specimen. Nogross hematuria on current output, but noted large amount of red blood cells on UA and patient alsonotes that earlier in the day he would gross hematuria. On review of office note from 09/16/2023 patient has had history of recurrent hematuria. 0 of 4 sirs criteria. Initiated on ceftriaxone in the em ergency room, continue on admission. CAD: Continue aspirin, Plavix, YANET inhibitor, statin Hypertension: Blood pressure 120s 150s over 60s to 70s. Resume patient's home Norvasc, YANET inhibitor Hyperlipidemia: Continue statin Diabetes mellitus type 2: Glucose one hundred twenty on presentation. Hold oral antihyperglycemic agents during hospitalization. Initiate insulin sensitive sliding scale coverage. Diabetic restricteddiet. Hemoglobin A1c pending for the morning. Anxiety/depression: Continue home Zoloft. BPH: Continue finasteride Normocytic anemia: Hemoglobin 12.5 grams/deciliter. No previous labs to compare to in our EMR, however in care everywhere review of last Heme-Onc note from 09/16/2023, iron trend since March 2023: 11.5 grams/deciliter, 11.6 grams/deciliter, 11.8 grams/deciliter, 12.9 grams/deciliter. No history to suggest ongoing blood loss. Appears as though hematology following for iron deficiency anemia. Continue iron supplement. Stable patient's baseline.. ESTIMATED LENGTH OF STAY: Greater than 2 midnights My total encounter time on 05/25/2023 was 62 minutes which was spent in the activities documented inthe note. This includes time spent prior to the visit and after the visit in direct care of the patient. This time does not include time spent in any separately reportable services. Medical Decision Making Complexity: Moderate DVT prophylaxis: High-risk, utilize SCDs given patient's reported gross hematuria, monitor closely. Full Code per discussion with patient at bedside Voice recognition software MModal Fluency Direct may have been used to dictate and transcribe this document. [employer] Education [employer] variances may occur. Despite proofreading, typographical errors may occur. Jaren Goyal MD 10/23/2023 8:37 PM documented in this encounter Consult Notes * Sourav Park MD - 10/24/2023 11:35 AM CDTAssociated Order(s): IP CONSULT TO NEPHROLOGY Nephrology Consult Reason for Consult: Hyponatremia Requesting Provider: Dr Patiño Subjective Patient is a 83 y.o. male with chief complaint of fatigue, blood in the urine. HPI: 83-year-old gentleman with past medical history of iron-deficiency anemia, hypertension, type 2 diabetes mellitus, BPH, GERD, urinary retention, osteoarthritis, hyperlipidemia, GERD, came to the ED with fatigue and hematuria. He was in [facility] a week ago for 3 days and was discharged withreturn back to the ED because his Mariee catheter was clogged. With exchanged and subsequently he presented to the ED at [facility] for the above-mentioned symptoms. He notes that he was not eatingand drinking well for at least 1-1/2-2 days prior to hospitalization. His oral intake was not adequate. He notes that prior to that he was drinking plenty of fluids, at least 64 oz of fluids a day. He was on hydrochlorothiazide until about August as per review of his chart when it was discontinued by his tiler's assistant. He thinks that he had already finished the hydrochlorothiazide and was not taking it anymore, but is not sure. He had some gross hematuria in his Mariee catheter which apparently was exchanged during this hospitalization as well and he is supposed to follow up with his own urologist as an outpatient. He denies any chest pain, shortness of breath, fever, chills, nausea, vomiting, diarrhea. 2D echo in 2021 with normal ejection fraction and grade 1 diastolic dysfunction. Past Medical History: Diagnosis Date Arthritis Enlarged prostate GERD (gastroesophageal reflux disease) Heart murmur High cholesterol HTN (hypertension) Type 2 diabetes mellitus (HCC) Past Surgical History: Procedure Laterality Date ANKLE FRACTURE SURGERY Right x 2 CHOLECYSTECTOMY Medications Prior to Admission Medication Sig Dispense Refill Last Dose amLODIPine-benazepriL (LOTREL 5-10) 5-10 mg per capsule 10/23/2023 aspirin 81 mg chewable tablet Take 1 tablet (81 mg total) by mouth daily 10/23/2023 atorvastatin (LIPITOR) 10 mg tablet 10/22/2023 cetirizine (ZyrTEC) 10 mg tablet Take 1 tablet (10 mg total) by mouth daily 10/23/2023 fluticasone propionate (FLONASE) 50 mcg/actuation nasal spray Administer 1 spray into each nostril daily 10/23/2023 metFORMIN (GLUCOPHAGE) 500 mg tablet Take 1 tablet (500 mg total) by mouth 2 (two) times a day 10/23/2023 omeprazole (PriLOSEC) 20 mg capsule Take 1 capsule (20 mg total) by mouth daily 10/23/2023 sertraline (ZOLOFT) 50 mg tablet Take 1 tablet (50 mg total) by mouth daily sodium chloride 1,000 mg tablet Take 0.5 tablets (0.5 g total) by mouth daily ALPRAZolam (XANAX) 0.25 mg tablet Take 1 tablet (0.25 mg total) by mouth 3 (three) times a day as needed for anxiety clopidogreL (PLAVIX) 75 mg tablet Take 1 tablet (75 mg total) by mouth every morning ferrous sulfate 325 mg (65 mg of elemental iron) tablet Take 1 tablet (325 mg total) by mouth dailywith breakfast finasteride (PROSCAR) 5 mg tablet Take 1 tablet (5 mg total) by mouth daily [id number] (Multivitamin 50 Plus) tablet Take by mouth daily niacin ER (NIASPAN) 500 mg CR capsule Take 1 capsule (500 mg total) by mouth nightly (Patient not taking: Reported on 07/26/2023) Allergies Allergen Reactions Sulfa (Sulfonamide Antibiotics) Unknown Social History Tobacco Use Smoking status: Former Current packs/day: 0.50 Average packs/day: 0.5 packs/day for 49.3 years (24.7 ttl pk-yrs) Types: Cigarettes Start date: 1974 Smokeless tobacco: Never Substance and Sexual Activity Drug use: Not on file Sexual activity: Not on file Alcohol Use: Not At Risk (10/23/2023) AUDIT-C Frequency of Alcohol Consumption: Never Average Number of Drinks: Patient does not drink Frequency of Binge Drinking: Never Family History Problem Relation Age of Onset Cancer Mother Stroke Father Heart attack Father Heart disease Other Stroke Other Current Medications: Scheduled Meds:aspirin, 81 mg, oral, Daily atorvastatin, 10 mg, oral, Daily cefTRIAXone, 1,000 mg, intravenous, Q24H PETER cetirizine, 10 mg, oral, Daily clopidogreL, 75 mg, oral, QAM ferrous sulfate, 65 mg of elemental iron, oral, Daily with breakfast finasteride, 5 mg, oral, Daily fluticasone propionate, 1 spray, each nostril, Daily insulin lispro, 0-4 Units, subcutaneous, Nightly insulin lispro, 0-5 Units, subcutaneous, TID with meals magnesium oxide, 400 mg, oral, BID pantoprazole DR, 40 mg, oral, Daily senna-docusate, 1 tablet, oral, BID sertraline, 50 mg, oral, Daily sodium chloride, 0.5 g, oral, Daily Continuous Infusions: PRN Meds:. acetaminophen OR acetaminophen OR acetaminophen ALPRAZolam dextrose OR dextrose glucagon polyethylene glycol ramelteon Family History: No hereditary kidney disease Review of systems Constitutional: Positive for reduced appetite and fatigue. HENT: Negative for ear pain, rhinorrhea, rhinitis, epistaxis. Eyes: Negative for loss of vision or diplopia. Respiratory: Negative for shortness of breath, cough,sputum or hemoptysis Cardiovascular: Negative for chest pain, palpitations or leg swelling. Gastrointestinal: Negative for abdominal pain, constipation or diarrhea, vomiting and nausea. Endocrine: Negative for polydipsia and polyuria. Negative for heat or cold intolerance Genitourinary: Positive hematuria in the setting of indwelling Mariee catheter Musculoskeletal: Negative for arthralgias, joint swelling or warmth Skin: Negative for color change or new rash. Allergic/Immunologic: Negative for itching. Neurological: Negative for dizziness, weakness and light-headedness. Hematological: Negative for lymph node enlargement, bleeding or bruising. Psychiatric/Behavioral: Negative for depression or anxiety. Objective Vitals: 24hr Min/Max: Temp Min: 36.2 ??C (97.1 ??F) Max: 36.9 ??C (98.4 ??F) Pulse Min: 52 Max: 67 BP Min: 126/66 Max: 159/78 Resp Min: 13 Max: 21 SpO2 Min: 98 % Max: 100 % Most Recent: Vitals: 10/24/23 0815 BP: 159/78 Pulse: 59 Resp: 18 Temp: 36.7 ??C (98.1 ??F) SpO2: 100% I/O last 2 completed shifts: In: 2225 [P.O.:240; I.V.:975; IV Piggyback:1010] Out: 2500 [Urine:2500] I/O this shift: In: 120 [P.O.:120] Out: 700 [Urine:700] Physical Exam: Constitutional: alert and oriented. Appears elderly, chronically ill, in no distress. Head: Normocephalic. Eyes: No icterus, extraocular movements normal Neck: Neck supple. Cardiovascular: Normal rate and regular rhythm. No murmur heard. Pulmonary/Chest: Breath sounds normal. Abdominal: Soft. Musculoskeletal: exhibits no edema. Neurological: alert and moves all 4 limbs. Skin: No rashes Lab/Radiology/Diagnostic Review: I have reviewed all relevant laboratory and imaging results and found hyponatremia, metabolic acidosis, anemia Additional Labs: Recent Labs Lab Units 10/24/23 1128 10/24/23 0746 10/23/23 2339 10/23/23 2224 10/23/23 1547 SODIUM mmol/L -- 127* 129* -- 122* POTASSIUM PLASMA mmol/L -- 4.6 4.1 -- 4.4 CHLORIDE mmol/L -- 96* 97 -- 88* CO2 mmol/L -- 21* 22 -- 19* BUN SERUM mg/dL -- 8 9 -- 11 CREATININE mg/dL -- 0.80 0.90 -- 0.80 WFT-DLE-FISKDYB mL/min/1.73 m2 -- 88 85 -- 88 GLUCOSE mg/dL -- 116 115 -- 120 POC GLUCOSE MONITOR mg/dL 136 -- -- < > -- CALCIUM mg/dL -- 8.4* 8.2* -- 9.0 ALBUMIN g/dL -- 3.8 -- -- 4.3 < > = values in this interval not displayed. Recent Labs Lab Units 10/24/23 0746 10/23/23 1547 WBC K/cumm 6.7 7.7 HEMOGLOBIN g/dL 11.6* 12.5* HEMATOCRIT % 33.8* 34.9* PLATELETS K/cumm 310 327 NEUTROS PCT % -- 83.8 LYMPHS PCT % -- 9.2 MONOS PCT % -- 5.8 EOS PCT % -- 0.3 Recent Labs Lab Units 10/23/23 1811 COLOR U Madai CLARITY U Cloudy* SPEC GRAV U 1.016 PH, URINE 8.0 PROTEIN UR QL 1+* GLUCOSE URQL Negative KETONES UR 2+* BLOOD UR 3+* NITRITE UR Negative LEUKOCYTE ESTERASE UR 2+* Urine sodium 40, urine osmolality 136, urine chloride 25 ASSESSMENT & PLAN Principal Problem: Hyponatremia Active Problems: Acute cystitis without hematuria Generalized weakness Urinary retention: BPH-has a Mariee catheter Recommendations --urine studies are not consistent with SIADH. Hyponatremia related to recent use of hydrochlorothiazide, reduced solute intake, volume depletion from poor oral intake. TSH is normal. --will discontinue normal saline that has been running so far. Mildly acidemic likely because of the saline. His serum sodium has improved from 122-129 with normal saline and is now 127. Encouraged oral fluids based upon his thirst but not to drink excessive volume of fluid. --suggested that he check his medications list home to ensure he has not taking hydrochlorothiazidewhich apparently was discontinued in August. --already with a Mariee catheter and supposed to follow with Urology as an outpatient. On IV antibiotics for possible UTI, cultures are pending. --rechecking labs in the morning. Thank you for the courtesy of this consultation. Voice recognition software was used to complete this document, therefore, thermodynamics engineer variances may occur. Sourav Park MD, M.S, [facility]ph[facility] Hypertension Office: [phone] * Rhona, Shamekabranden Pickett NP - 10/24/2023 8:24 AM CDT Images from the original note were not included. Urology Consult Note History of Present Illness: I was requested to see Meliton Delacruz to evaluate for hematuria, urinary retention, UTI by Félix Cool. Meliton Delacruz is a 83 y.o. male with hx of BPH who presented to ER yesterday due to c/o persistent UTI, hematuria, and hyponatremia. He was hospitalized at [facility] about a week ago for 3 days, discharged Tuesday, and had to return to ER due to mariee clogging. He was discharged after foleywas replaced and was draining well. Patient reports presence of indwelling mariee catheter for 1 year and 8 months. Chronic mariee is dueto enlarged prostate and bladder not working. He sees Dr. Siegel at [facility] where he has his mariee replaced monthly. Reports hx of gross hematuria and UTI's. Denies hx of urology procedure, cancers, kidney stones. He is on finasteride at home. Per patient, he used to be on blood thinn er but no longer. ER Workup: -No leukocytosis. -Hgb stable 12.5. -Cr 0.8. -UA neg nitrites, UA micro WBC 21-50 and RBC > 50, urine culture pending. The patient's past medical, surgical, medication, allergy, family, and social histories were reviewed and noncontributory to this illness/condition except as noted below: The patient's past medical history is notable for: Past Medical History: Diagnosis Date Arthritis Enlarged prostate GERD (gastroesophageal reflux disease) Heart murmur High cholesterol HTN (hypertension) Type 2 diabetes mellitus (HCC) The patient's past surgical history is notable for: Past Surgical History: Procedure Laterality Date ANKLE FRACTURE SURGERY Right x 2 CHOLECYSTECTOMY Objective In/Outs: I/O last 3 completed shifts: In: 2225 [P.O.:240; I.V.:975; IV Piggyback:1010] Out: 2500 [Urine:2500] No intake/output data recorded. Physical Exam: Vitals: 05/05/24 2145 10/23/23 2241 10/24/23 0352 10/24/23 0815 BP: 129/84 139/63 159/78 BP Location: Left arm Right arm Right arm Patient Position: Lying Lying Lying Pulse: 57 61 59 Resp: 18 18 18 Temp: 36.7 ??C (98.1 ??F) 36.9 ??C (98.4 ??F) 36.7 ??C (98.1 ??F) TempSrc: Axillary Oral Oral SpO2: 98% 98% 100% Weight: 82 kg (180 lb 12.8 oz) Height: 182.9 cm (6' 0.01 ) Physical Exam Vitals reviewed. Pulmonary: Effort: Pulmonary effort is normal. Abdominal: General: There is no distension. Tenderness: There is no abdominal tenderness. Genitourinary: Comments: Mariee with yellow urine Neurological: Mental Status: He is alert and oriented to person, place, and time. Psychiatric: Mood and Affect: Mood normal. Behavior: Behavior normal. Labs/Imaging: Chem/LFT Lab History Latest Ref Rng & Units 10/23/2023 Labs-Chem/LFT Sodium 135 - 145 mmol/L 129 Creatinine 0.80 - 1.30 mg/dL 0.90 Bilirubin, total 0.1 - 1.2 mg/dL 0.4 AST 10 - 50 Units/L 20 ALT 7 - 55 Units/L 17 Alk phos 40 - 130 Units/L 112 CrCl- Actual Body Weight (Cockcroft-Gault) 72.1 Details More abnormal values are hidden. Newest values shown. Go to activity for more data. More values are hidden. Newest values shown. Go to activity for more data. Hematology Lab History Latest Ref Rng & Units 10/23/2023 15:47 Labs - Hematology WBC 3.8 - 9.9 K/cumm 7.7 Total Hb, POC 13.0 - 17.5 g/dL 12.5 Hct 38.9 - 50.3 % 34.9 Plt 150 - 400 K/cumm 327 Neutrophil abs 1.5 - 6.5 K/cumm 6.4 Lymphocytes, abs 0.8 - 3.3 K/cumm 0.7 The following images were personally reviewed by me. Event Monitor AMBULATORY CUSTOMS ENTRY CLERK REPORT Patient Name: Meliton Delacruz Date of : 1940 Requesting Physician: Dr. Benjamin Date of interpretation: 08/17/23 Type of monitor : 2 week event monitor Date of the study/Enrollment period: 07/26/2023-08/10/2023 Indication: TIA Quality of the study: Adequate Interpretation: Underlying rhythm is sinus rhythm, heart rate ranges between 50 beats per minute to 120 beats per minute, average heart rate 68 beats per minute. Intraventricular conduction delay versus bundle branch block was noted. Frequent supraventricular ectopy was seen in the form of PACs with a burden of 11%. Occasional ventricular ectopy was seen in the form of PVCs with a burden of 1% for the duration of the study. No other significant arrhythmias or heart blocks. No symptoms reported. Conclusions: Predominant underlying rhythm is sinus rhythm, average heart rate 68 beats per minute. Intraventricular conduction delay versus bundle branch block. Frequent supraventricular ectopy was noted in the form of PACs with a burden of 11% for the duration of the study. Rare ventricular ectopy. No other significant arrhythmias or heart blocks. No symptoms reported. Voice recognition software was used to complete this document, therefore, thermodynamics engineer variances may occur. Ugo Guevara MD, [facility] 08/17/23 Assessment Meliton Delacruz is a 83 y.o. male with urinary retention and chronic mariee catheter who was admitted with gross hematuria and hyponatremia. #Chronic mariee catheter -Replaced in ER 10/23. -Mariee exchanged monthly at Dr. Siegel's office. #Hematuria -Resolved. -Possibly due to BPH in setting of UTI, chronic mariee. -Will need consideration of hematuria work up outpatient with his current urologist. Plan Continue empiric treatment of UTI until cultures are finalized. He should continue to have monthly mariee catheter changes with current urologist. Patient is unsure of next appt with Dr. Siegel. Discussed importance of follow up as soon as available following discharge from hospital to address recent acute issues. Thank you for allowing us to participate in the care of this patient. For any questions or concerns, please refer to specialty portal to page appropriate provider health and wellness sales consultant. Shameka Melgoza NP 10/24/2023 documented in this encounter Nursing Notes * Elena Izquierdo RN - 10/27/2023 2:35 PM CDT Neuro: AO x 4, contact guard Cardiac: Denies any S&S of distress Respiratory: Denies any S&S of distress GI/: Leg bag placed; draining appropriately yellow, lear urine AC/HS Pain Denies Pt and state they have no questions regarding discharge and he states he has no complaints at this time. IV has been removed. No tele monitor. documented in this encounter ED Notes * Jacqui Charles MD - 10/23/2023 8:23 PM CDT HPI Chief Complaint Patient presents with Fatigue HPI 8:55 PM Meliton Delacruz is a 83 y.o. male presenting to the ED c/o persistent urinary tract infectionand hematuria. He has also had episodes of hyponatremia. He is normally cared for at [facility]. He was admitted there last week for a sodium of 124 at [facility] 3 days until it was 130. Family returned him there yesterday his sodium was 124. He was told to go home any foods high in salt. However he is continuing to be fatigued with decreased appetite. Patient has had recurrent urinary tract infections with hematuria and a Mariee is in place. He is followed by urology at [facility]. This morning he had dark blood layering in his urine. He has not had any difficulty urinating or urinary ret ention. Denies fevers and chills. Patient History: Past Medical History: Diagnosis Date Arthritis Enlarged prostate GERD (gastroesophageal reflux disease) Heart murmur High cholesterol HTN (hypertension) Type 2 diabetes mellitus (HCC) Past Surgical History: Procedure Laterality Date ANKLE FRACTURE SURGERY Right x 2 CHOLECYSTECTOMY Family History Problem Relation Age of Onset Cancer Mother Stroke Father Heart attack Father Heart disease Other Stroke Other Social History Tobacco Use Smoking status: Former Current packs/day: 0.50 Average packs/day: 0.5 packs/day for 49.3 years (24.7 ttl pk-yrs) Types: Cigarettes Start date: 1974 Smokeless tobacco: Never Substance and Sexual Activity Drug use: Not on file Sexual activity: Not on file Alcohol Use: Not on file No current facility-administered medications for this encounter. Current Outpatient Medications: amLODIPine-benazepriL (LOTREL 5-10) 5-10 mg per capsule aspirin 81 mg chewable tablet atorvastatin (LIPITOR) 10 mg tablet cetirizine (ZyrTEC) 10 mg tablet fluticasone propionate (FLONASE) 50 mcg/actuation nasal spray metFORMIN (GLUCOPHAGE) 500 mg tablet omeprazole (PriLOSEC) 20 mg capsule sertraline (ZOLOFT) 50 mg tablet sodium chloride 1,000 mg tablet ALPRAZolam (XANAX) 0.25 mg tablet clopidogreL (PLAVIX) 75 mg tablet ferrous sulfate 325 mg (65 mg of elemental iron) tablet finasteride (PROSCAR) 5 mg tablet tjxkxtzwuvxb-ancbibug-olcfsl (Multivitamin 50 Plus) tablet niacin ER (NIASPAN) 500 mg CR capsule Review of Systems Review of Systems All systems reviewed and are neg or non contributory for this patients presentation today other than as stated in the HPI . Physical Exam ED Triage Vitals [10/23/23 1528] Temp Pulse Resp BP SpO2 36.2 ??C (97.1 ??F) 52 18 151/79 98 % Temp src Heart Rate Source Patient Position BP Location FiO2 (%) Temporal -- -- -- -- Height Height Method Weight Weight Method 1.829 m (6') Stated 81.6 kg (180 lb) Stated Physical Exam Vitals and nursing note reviewed. Constitutional: Appearance: He is well-developed. HENT: Head: Normocephalic and atraumatic. Eyes: Conjunctiva/sclera: Conjunctivae normal. Cardiovascular: Rate and Rhythm: Normal rate and regular rhythm. Heart sounds: No murmur heard. Pulmonary: Effort: Pulmonary effort is normal. No respiratory distress. Breath sounds: Normal breath sounds. Abdominal: Palpations: Abdomen is soft. Tenderness: There is no abdominal tenderness. Musculoskeletal: General: No swelling or tenderness. Normal range of motion. Cervical back: Normal range of motion. No rigidity. Skin: General: Skin is warm and dry. Findings: No erythema. Neurological: General: No focal deficit present. Mental Status: He is alert and oriented to person, place, and time. Psychiatric: Mood and Affect: Mood normal. Behavior: Behavior normal. Procedures MDM Labs Reviewed URINALYSIS AND REFLEX TO MICROSCOPIC AND CULTURE - Abnormal Result Value Color, ur Madai Clarity, ur Cloudy (*) Specific gravity, ur 1.016 pH, urine 8.0 Protein, ur ql 1+ (*) Glucose, ur ql Negative Ketones, ur 2+ (*) Bilirubin, ur Negative Blood, ur 3+ (*) Urobilinogen, ur 2.0 (*) Nitrite, ur Negative Leukocyte esterase, ur 2+ (*) UA reflex comment Reflex to microscopic UA will be performed. CBC WITH AUTO DIFFERENTIAL - Abnormal WBC 7.7 Hgb 12.5 (*) Hct 34.9 (*) Plt 327 MPV 9.0 (*) RBC 4.25 (*) MCV 82.1 MCH 29.4 MCHC 35.8 (*) RDW CV 12.6 RDW SD 37.8 NRBC abs 0.00 COMPREHENSIVE METABOLIC PANEL - Abnormal Sodium 122 (*) Potassium, pl 4.4 Chloride 88 (*) CO2 19 (*) Anion gap 15 BUN 11 Creatinine 0.80 Glucose 120 Calcium 9.0 Bilirubin, total 0.4 Protein, pl 6.8 Albumin 4.3 Alk phos 112 ALT 17 AST 20 DIFFERENTIAL AUTO - Abnormal Neutrophil abs 6.4 Imm gran abs 0.0 Lymphocyte abs 0.7 (*) Monocyte abs 0.4 Eosinophil abs 0.0 Basophil abs 0.0 Neutrophil pct 83.8 Imm gran pct 0.4 Lymphocyte pct 9.2 Monocyte pct 5.8 Eosinophil pct 0.3 Basophil pct 0.5 URINALYSIS, MICROSCOPIC ONLY - Abnormal WBC, ur 21-50 (*) RBC, ur >50 (*) Mucous, ur Present (*) Culture Reflex Comment Reflex to urine culture will be performed. URINE CULTURE EGFR eGFR 88 SODIUM, URINE, RANDOM CHLORIDE, URINE, RANDOM OSMOLALITY, URINE No orders to display BP 126/66 Pulse 61 Temp 36.2 ??C (97.1 ??F) (Temporal) Resp 21 Ht 182.9 cm (6') Wt 81.6 kg (180 lb) SpO2 99% BMI 24.41 kg/m?? [facility] ED Course as of 10/23/232054 Time: 10/23 2023 Comment: Elevated white blood cell count and urine along with RBCs. Vital signs stable. Afebrile inserum white blood cell count normal. I discussed pt with urology and they will see him in the morning. By: Jacqui Charles MD Time: 10/22 2025 Comment: High info a tree me a more likely from dehydration. The family states that he does drink water at home but he has a very minimal urine output while in the emergency department. Will order urine sodium and chloride to clarify. By: Jacqui Charles MD This examination was transcribed using the [employer] voice recognition system without human rotary driller prospecting. In an effort to expedite patient care, this report has not been adjusted for typographical, grammatical, and syntax by a trained medical laboratory technical officer. Clinical Impression: Generalized weakness Urinary tract infection associated with catheterization of urinary tract, unspecified indwelling urinary catheter type, initial encounter ([facility]) Hyponatremia Hematuria, unspecified type Jacqui Charles MD 10/23/232054 * Alyssa Knight RN - 10/23/2023 7:47 PM CDT Pt requesting something to eat. Gave pudding and jello. Alyssa Knight RN 10/23/231946 * Malinda Forrester RN - 10/23/2023 6:32 PM CDT Ua collected from mariee cath replaced today at [facility], states leg bag new as well Malinda Forrester RN 10/23/231831 * Estevan Guido RN - 10/23/2023 3:27 PM CDT Came to ED with for c/o weakness and low sodium level. Per was seen at [facility] ED this am and Sodium was 124. Per called PCP and if after sodium tablet if no improvement go to ED documented in this encounter Miscellaneous Notes * Plan of Care - Alyssa Lei RN - 10/27/2023 2:22 PM CDT CARE COORDINATION DISCHARGE PLANNING HOME: Patient will d/c home with support from family. Transportation home provided by spouse. Patient/Family denies needs or barriers to care. ANTICIPATED D/C DATE: 10/27/23 CM will continue to follow for progression of care, if further needs for discharge or barriers to care arise, please reach out to care management team. Alyssa Lei RN 10/27/2023 2:22 PM * Plan of Care - Aliyah Alas RN - 10/27/2023 1:06 AM CDT Problem: Discharge Planning Goal: Understanding discharge needs will improve Outcome: Progressing Flowsheets (Taken 10/27/2023 010) Understanding of discharge needs will improve: Collaborate with case management interdisciplinary team Problem: Fall Risk Goal: Will remain free from falls Outcome: Progressing Flowsheets (Taken 10/27/2023 0105) Will remain free from falls: Implement fall prevention measures Goal: Will remain free from injury from falls Outcome: Progressing Flowsheets (Taken 10/26/2023 1755 by Elena Izquierdo RN) Will remain free from injury from falls: Provide safe environment for conduction of activities of daily living in hospital environment Problem: Genitourinary Goal: Urinary catheter remains patent Outcome: Progressing Flowsheets (Taken 10/27/2023 010) Urinary catheter remains patent: Assess patency of urinary catheter Goals: Clinical Goals for the Shift: monitor hematuria, VSS, comfort, safety Summary: Urine remains yellow/clear in mariee catheter. Patient has denied pain throughout shift. Safety measures in place. Call light within reach, bed alarm on. * Plan of [facility] - Elena Izquierdo RN - 10/26/2023 5:56 PM CDT Goals: Clinical Goals for the Shift: monitor hematuria, VSS, comfort, safety Shift Summary: Neuro: AO x 4, SBA Cardiac: discontinued Respiratory: RA GI/: urine currently yellow and clear AC/HS Pain: Denies Call light within reach, bed in low position with all wheels locked. Bed alarm/chair alarm on. Problem: Fall Risk Goal: Ability to state ways to decrease the risk of falls will improve Outcome: Progressing Flowsheets (Taken 10/26/20231754) Ability to state ways to decrease the risk of falls will improve: Teach fall prevention measures Teach information regarding appropriate enviornmental changes Goal: Will remain free from injury from falls Outcome: Progressing Flowsheets (Taken 10/26/20231754) Will remain free from injury from falls: Provide safe environment for conduction of activities of daily living in hospital environment Problem: Disease Process Goal: Knowledge of disease or condition will improve Outcome: Progressing Flowsheets (Taken 10/26/20231754) Knowledge of disease or condition will improve: Assess barriers to learning Assess physical and/or emotional readiness to learn Assess cultural and mormon beliefs that influence knowledge of disease or condition Problem: Medication Regimen Goal: Knowledge of medication regimen will improve Outcome: Progressing Flowsheets (Taken 10/26/2023 175) Knowledge of medication regimen will improve: Assess physical and emotional readiness to learn Assess comprehension of information provided about medications Provide tailored teaching specific to age, educational level and preferred method Teach medication schedule Provide realistic goals for learning Problem: Dietary Regimen Goal: Knowledge of prescribed regimen will improve Outcome: Progressing Flowsheets (Taken 10/26/20231754) Knowledge of the prescribed dietary regimen will improve: Identify educational needs Assess barriers to learning Assess physical and/or emotional readiness to learn * Plan of Care - Karla Mccabe RN - 10/26/2023 3:12 AM CDT Goals: Clinical Goals for the Shift: Monitor hematuria, mariee care, comfort, safety, pain management Summary: Problem: Discharge Planning Goal: Understanding discharge needs will improve Outcome: Progressing Problem: Fall Risk Goal: Ability to state ways to decrease the risk of falls will improve Outcome: Progressing Goal: Will remain free from falls Outcome: Progressing Goal: Will remain free from injury from falls Outcome: Progressing Problem: Disease Process Goal: Knowledge of disease or condition will improve Outcome: Progressing Goal: Seeking information regarding disease process or condition Outcome: Progressing Goal: Ability to make informed decisions regarding treatment will improve Outcome: Progressing Problem: Medication Regimen Goal: Knowledge of medication regimen will improve Outcome: Progressing Problem: Diagnostic Tests Goal: Knowledge of diagnostic tests will improve Outcome: Progressing Goal: Ability to verbalize follow-up procedures will improve Outcome: Progressing Problem: Treatment Goal: Expressions of comfortable level of knowledge will increase Outcome: Progressing Problem: Dietary Regimen Goal: Knowledge of prescribed regimen will improve Outcome: Progressing Goal: Ability to plan menus appropriate to prescribed diet will improve Outcome: Progressing * Plan of [place] - Taran Delatorre RN - 10/25/2023 5:44 PM CDT Problem: Discharge Planning Goal: Understanding discharge needs will improve Outcome: Ongoing Problem: Fall Risk Goal: Will remain free from falls Outcome: Ongoing Problem: Disease Process Goal: Knowledge of disease or condition will improve Outcome: Ongoing Problem: Medication Regimen Goal: Knowledge of medication regimen will improve Outcome: Ongoing Problem: Dietary Regimen Goal: Knowledge of prescribed regimen will improve Outcome: Ongoing Goal: Ability to plan menus appropriate to prescribed diet will improve Outcome: Ongoing Goals: Clinical Goals for the Shift: monitor vital signs, fluid input and output, maintain comfort and safety Summary: Patient's vitals have been stable for the duration of the shift and patient has denied pain for the duration of the shift. Patient continues to have hematuria present in his mariee catheter bag but closer to the end of shift the blood began to clot and was presenting with less redness. Patient's primary care office was called and they confirmed patient was suppose to stop taking Plavix 08/31/2023 due to post-TIA treatment being completed. Patient's attending physician discontinued the Plavix and patient was educated to let future healthcare team providers and members of the healthcareteam know he should not be taking Plavix. Patient continues to mobilize as a standby assist with minimal deficits and has been free of falls. Patient is tolerating oral diet and denies nausea. Comfort and safety rounds were conducted as indicated. * Plan of Care - Karla Mccabe RN - 10/25/2023 3:09 AM CDT Goals: Clinical Goals for the Shift: Monitor VS, safety , fall prevention, orintation to surroundings, monitor mariee for hematuria, pain management Summary: Problem: Discharge Planning Goal: Understanding discharge needs will improve Outcome: Progressing Problem: Fall Risk Goal: Ability to state ways to decrease the risk of falls will improve Outcome: Progressing Goal: Will remain free from falls Outcome: Progressing Goal: Will remain free from injury from falls Outcome: Progressing Problem: Disease Process Goal: Knowledge of disease or condition will improve Outcome: Progressing Goal: Seeking information regarding disease process or condition Outcome: Progressing Goal: Ability to make informed decisions regarding treatment will improve Outcome: Progressing Problem: Medication Regimen Goal: Knowledge of medication regimen will improve Outcome: Progressing Problem: Diagnostic Tests Goal: Knowledge of diagnostic tests will improve Outcome: Progressing Goal: Ability to verbalize follow-up procedures will improve Outcome: Progressing Problem: Treatment Goal: Expressions of comfortable level of knowledge will increase Outcome: Progressing Problem: Dietary Regimen Goal: Knowledge of prescribed regimen will improve Outcome: Progressing Goal: Ability to plan menus appropriate to prescribed diet will improve Outcome: Progressing * Plan of Care - Taran Delatorre RN - 10/24/2023 3:17 PM CDT Problem: Discharge Planning Goal: Understanding discharge needs will improve Outcome: Ongoing Problem: Fall Risk Goal: Will remain free from falls Outcome: Ongoing Problem: Disease Process Goal: Knowledge of disease or condition will improve Outcome: Ongoing Goal: Ability to make informed decisions regarding treatment will improve Outcome: Ongoing Problem: Diagnostic Tests Goal: Ability to verbalize follow-up procedures will improve Outcome: Ongoing Problem: Treatment Goal: Expressions of comfortable level of knowledge will increase Outcome: Ongoing Goals: Monitor vital signs, fluid input and output, maintain comfort and safety Summary: Patient's vitals have been stable and patient has denied pain for the duration of the shift. Patient mobilizes as a standby assist out of bed and has been free of falls. Patient continues tohave hematuria present in urine and MD was made aware. MD held patient's plavix and aspirin. Patient is tolerating oral diet and denies nausea. Patient's Na was 127 and is being replaced by sodium tab lets. Comfort and safety rounds were conducted as indicated. * Initial Assessments - Madai David RN - 10/24/2023 2:10 PM CDT CM Initial Assessment Interview Note Information Obtained From: Patient (10/24/23 1404) Admission Source: ED Impression: Pt presented with c/o weakness and hyponatremia. Spouse noted that pt was recently admitted at [facility] for same. Dx hyponatremia. IV abx, IVF Plan Includes: Pt from home with spouse, independent with walker if needed. Pt plans to return homewith spouse and no needs at d/c. Primary Source of Transportation: Does the patient need discharge transport arranged?: No ( will transport) (10/24/23 1404) Health Insurance Coverage: Medicare Prescription Coverage: [facility] Pharmacy: [facility] (MAIL SERVICE) [id number] - [place], [place] - [address] AT [address] [facility] [phone] [id number] - [place], [place] - [address] AT [place] [address]) & [address] [facility] [phone] Primary Care Provider: Meliton Washburn MD Prior to Admission: Functional Status: Minimal assist with ADLs Primary Caregiver: Self Support System: Spouse/Significant Other Home Care Services: No Outpatient Services: No Durable Medical Equipment: Walker (wheeled) Living Arrangements: Spouse/significant other Type of Residence: Private residence Steps in home?: Yes, Outside of home Number of steps outside: 10 steps (10/23/232219) SDOH: Transportation: In the past 12 months, has lack of transportation kept you from medical appointments or from getting medications?: No In the past 12 months, has lack of transportation kept you from meetings, work, or from getting things needed for daily living?: No (10/24/231408) Financial Resource: How hard is it for you to pay for the very basics like food, housing, medical care, and heating?: Not hard at all (10/24/231408) Housing: In the last 12 months, was there a time when you were not able to pay the mortgage or rent on time?: No In the last 12 months, how many places have you lived?: 1 In the last 12 months, was there a time when you did not have a steady place to sleep or slept in ashelter (including now)?: No (10/24/231408) Utilities: No, (10/24/231408) Social Connections: In a typical week, how many times do you talk on the phone with family, friends, or neighbors?: More than three times a week How often do you get together with friends or relatives?: More than three times a week How often do you attend restorationist or mormon services?: Never Do you belong to any clubs or organizations such as restorationist groups, unions, fraternal or athletic groups, or school groups?: No How often do you attend meetings of the clubs or organizations you belong to?: Never Are you , , , , never , or living with a partner?: (10/24/231408) Food Insecurity: Within the past 12 months, you worried that your food would run out before you got the money to buymore.: Never true Within the past 12 months, the food you bought just didn't last and you didn't have money to get more.: Never true (10/24/231408) Patient expects to be Discharged to: Private residence, (10/24/23 1406) Patient's Identified Problem/Goal Problem: Ensure acute medical needs are met and that patient has a safe discharge plan. Goal: Secure a discharge plan that patient/family are agreeable with and ensure patient has continuum of care. Case management will follow for discharge planning and send referrals as needed. Madai David RN * Plan of Care - Karla Mccabe RN - 10/23/2023 10:37 PM CDT Goals: Clinical Goals for the Shift: Monitor VS, safety , fall prevention, orintation to surroundings, monitor mariee for hematuria, pain management Summary: Problem: Discharge Planning Goal: Understanding discharge needs will improve Outcome: Ongoing Problem: Fall Risk Goal: Ability to state ways to decrease the risk of falls will improve Outcome: Ongoing Goal: Will remain free from falls Outcome: Ongoing Goal: Will remain free from injury from falls Outcome: Ongoing Problem: Disease Process Goal: Knowledge of disease or condition will improve Outcome: Ongoing Goal: Seeking information regarding disease process or condition Outcome: Ongoing Goal: Ability to make informed decisions regarding treatment will improve Outcome: Ongoing Problem: Medication Regimen Goal: Knowledge of medication regimen will improve Outcome: Ongoing Problem: Diagnostic Tests Goal: Knowledge of diagnostic tests will improve Outcome: Ongoing Goal: Ability to verbalize follow-up procedures will improve Outcome: Ongoing Problem: Treatment Goal: Expressions of comfortable level of knowledge will increase Outcome: Ongoing Problem: Dietary Regimen Goal: Knowledge of prescribed regimen will improve Outcome: Ongoing Goal: Ability to plan menus appropriate to prescribed diet will improve Outcome: Ongoing documented in this encounter Plan of Treatment Not on file documented as of this encounter Procedures Procedure Name Priority Date/Time Associated Diagnosis Comments POCT GLUCOSE DEVICE Routine 10/27/2023 1 2:48 PM CDT EGFR Routine 10/27/2023 8:55 AM CDT RENAL FUNCTION PANEL Routine 10/27/2023 8:55 AM CDT POCT GLUCOSE DEVICE Routine 10/27/2023 8 :29 AM CDT DIFFERENTIAL AUTO Routine 10/27/2023 7:2 6 AM CDT CBC WITH AUTO DIFFERENTIAL Routine 10/27/2023 7:26 AM CDT POCT GLUCOSE DEVICE Routine 10/26/2023 1 1:54 PM CDT POCT GLUCOSE DEVICE Routine 10/26/2023 8 :26 PM CDT POCT GLUCOSE DEVICE Routine 10/26/2023 5 :00 PM CDT POCT GLUCOSE DEVICE Routine 10/26/2023 1 2:35 PM CDT EGFR STAT 10/26/2023 12:15 PM CDT RENAL FUNCTION PANEL STAT 10/26/2023 12:15 PM CDT EGFR Routine 10/26/2023 11:49 AM CDT DIFFERENTIAL AUTO Routine 10/26/2023 11: 49 AM CDT CBC WITH AUTO DIFFERENTIAL Routine 10/26/2023 11:49 AM CDT BASIC METABOLIC PANEL Routine 10/26/2023 11:49 AM CDT EGFR STAT 10/26/2023 11:46 AM CDT DIFFERENTIAL AUTO STAT 10/26/2023 11: 46 AM CDT CBC WITH AUTO DIFFERENTIAL STAT 10/26/2023 11:46 AM CDT BASIC METABOLIC PANEL STAT 10/26/2023 11:46 AM CDT POCT GLUCOSE DEVICE Routine 10/26/2023 7 :38 AM CDT POCT GLUCOSE DEVICE Routine 10/25/2023 8 :22 PM CDT POCT GLUCOSE DEVICE Routine 10/25/2023 5 :05 PM CDT POCT GLUCOSE DEVICE Routine 10/25/2023 1 1:55 AM CDT EGFR Routine 10/25/2023 11:38 AM CDT DIFFERENTIAL AUTO Routine 10/25/2023 11: 38 AM CDT CBC WITH AUTO DIFFERENTIAL Routine 10/25/2023 11:38 AM CDT RENAL FUNCTION PANEL Routine 10/25/2023 11:38 AM CDT POCT GLUCOSE DEVICE Routine 10/25/2023 9 :20 AM CDT POCT GLUCOSE DEVICE Routine 10/24/2023 8 :23 PM CDT POCT GLUCOSE DEVICE Routine 10/24/2023 5 :07 PM CDT ECG 12-LEAD Routine 10/24/2023 2:46 PM CDT OSMOLALITY, BLOOD Add-On 10/24/2023 12: 26 PM CDT POCT GLUCOSE DEVICE Routine 10/24/2023 1 1:28 AM CDT EGFR Routine 10/24/2023 7:46 AM CDT THYROID FUNCTION CASCADE Routine 10/24/2023 7:46 AM CDT CBC WITHOUT DIFFERENTIAL Routine 10/24/2023 7:46 AM CDT HEMOGLOBIN A1C Routine 10/24/2023 7:46 AM CDT LIPID PANEL Routine 10/24/2023 7:46 AM CDT COMPREHENSIVE METABOLIC PANEL Routine 10/24/2023 7:46 AM CDT EGFR STAT 10/23/2023 11:39 PM CDT MAGNESIUM STAT 10/23/2023 11:39 PM CDT BASIC METABOLIC PANEL STAT 10/23/2023 11:39 PM CDT POCT GLUCOSE DEVICE Routine 10/23/2023 1 0:24 PM CDT SODIUM, URINE, RANDOM Routine 10/23/2023 9:06 PM CDT OSMOLALITY, URINE STAT 10/23/2023 9:0 6 PM CDT CHLORIDE, URINE, RANDOM STAT 10/23/2023 9:06 PM CDT URINALYSIS AND REFLEX TO MICROSCOPIC AND CULTURE STAT 10/23/2023 6:11 PM CDT URINALYSIS, MICROSCOPIC ONLY STAT 10/23/2023 6:11 PM CDT URINE CULTURE STAT 10/23/2023 6:11 PM CDT EGFR STAT 10/23/2023 3:47 PM CDT DIFFERENTIAL AUTO STAT 10/23/2023 3:4 7 PM CDT CBC WITH AUTO DIFFERENTIAL STAT 10/23/2023 3:47 PM CDT COMPREHENSIVE METABOLIC PANEL STAT 10/23/2023 3:47 PM CDT ECG 12-LEAD Routine 10/23/2023 3:38 PM CDT documented in this encounter Results * POCT glucose (10/27/2023 12:48 PM CDT) [facility] Glucose, POC 101 70 - 199 mg/dL Comment:Testing performed by : [facility], [address] [place] [address]., [address] Blood 10/27/2023 12:4 8 PM CDT 10/27/2023 12:48 PM CDT us Ingrid Cheek MD LAB POCT ORDERABLES - DEVICE Fin al Result AFLREDO [address] [facility] Department [place] [address] * eGFR (10/27/2023 8:55 AM CDT) [facility] eGFR >90 >=60 mL/min/1. 73 m2 Comment: [...] of Race in Diagnosing Kidney Disease, JASN 202). The CKD-EPI equation should not be used for patients with unstable renal function and has not been validated in children and those over 70. Current interpretive data was last reviewed 2021. Testing performed by: [facility], [address] [place] [address]., [address] Blood 10/27/2023 8:55 AM CDT 10/27/2023 9:00 AM CDT us Ingrid Cheek MD LAB BLOOD ORDERABLES Final Resul t ALFREDO [address] [facility] Department [place] [address] * (ABNORMAL) Renal function panel (10/27/2023 8:55 AM CDT) Sodium 130(L) 135 - 145 mmol/L Comment:Testing performed by : [address] [address] Potassium, pl 4.4 3.3 - 4.9 mmol/L ALFREDO Comment:Testing performed by : [address] [address] Chloride 96(L) 97 - 110 mmol/L ALFREDO Comment:Testing performed by : [address] [address] CO2 23 22 - 32 mmol/L ALFREDO Comment:Testing performed by : [address] [address] Anion gap 11 2 - 15 mmol/L ALFREDO Comment:Testing performed by : [address] [address] BUN 13 6 - 25 mg/dL ALFREDO Comment:Testing performed by : [address] [address] Creatinine 0.70(L) 0.80 - 1.30 mg/dL ALFREDO Comment:Testing performed by : [address] [address] Glucose 129 70 - 199 mg/dL ALFREDO Comment: Interpretive Data Fasting glucose >/= 126 mg/dl is diagnostic for diabetes. ?? Fasting is defined as no caloric intake for at least 8 hours. Fasting glucose between 100 mg/dl to 125 mg/dl is diagnostic of prediabetes. In a patient with classic symptoms of hyperglycemia or hyperglycemic crisis, a random glucose >/= 200 mg/dl is diagnostic for diabetes. In the absence of unequivocal hyperglycemia, results should be confirmed by repeat testing. The classification and Diagnosis of Diabetes Diabetes Care 202; 46: S19-S40. Current interpretive data was last revised 2022. Testing performed by: [address] [address] Calcium 8.6 8.5 - 10.3 mg/dL ALFREDO Comment:Testing performed by : [address] [address] Phosphorus, pl 3.6 2.3 - 4.5 mg/dL ALFREDO Comment:Testing performed by : [address] [address] Albumin 3.9 3.5 - 5.0 g/dL ALFREDO Comment:Testing performed by : [address] [address] Blood 10/27/2023 8:55 AM CDT 10/27/2023 9:00 AM CDT Ingrid Cheek MD LAB BLOOD ORDERABLES Final Resul t Performing Organization Address [facility] Co de Phone Number NIC[address] [place] [address] * POCT glucose (10/27/2023 8:29 AM CDT) Glucose, POC 125 70 - 199 mg/dL Comment:Testing performed by : [address] [address] Blood 10/27/2023 8:29 AM CDT 10/27/2023 8:29 AM CDT Ingrid Cheek MD LAB POCT ORDERABLES - DEVICE Fin al Result Performing Organization Address City/[facility] Co de Phone Number [address] [place] [address] * Differential, auto (10/27/2023 7:26 AM CDT) Neutrophil abs 5.8 1.5 - 6.5 K/cumm Comment:Testing performed by : [address] [address] Imm gran abs 0.0 0.0 - 0.1 K/cumm CERNER Comment:Testing performed by : [address] [address] Lymphocyte abs 0.9 0.8 - 3.3 K/cumm CERNER Comment:Testing performed by : [address] [address] Monocyte abs 0.5 0.2 - 0.8 K/cumm [facility] Comment:Testing performed by : [address], [place]., [address] Eosinophil abs 0.1 0.0 - 0.5 K/cumm [facility] Comment:Testing performed by : [address] [address] Basophil abs 0.1 0.0 - 0.1 K/cumm [facility] Comment:Testing performed by : [address] [address] Neutrophil pct 79.2 % [facility] Comment: Interpretive Data Percent cell count reference ranges are not reported, since discordance with absolute values may lead to misinterpretation of CBC data. Current Interpretive Data was last revised on 2017. Testing performed by: [address] [address] Imm gran pct 0.4 % [facility] Comment: Interpretive Data Percent cell count reference ranges are not reported, since discordance with absolute values may lead to misinterpretation of CBC data. Current Interpretive Data was last revised on 2017. Testing performed by: [address] [address] Lymphocyte pct 11.7 % CERNER Comment: Interpretive Data Percent cell count reference ranges are not reported, since discordance with absolute values may lead to misinterpretation of CBC data. Current Interpretive Data was last revised on 2017. Testing performed by: [address] [address] Monocyte pct 6.6 % CERNER Comment: Interpretive Data Percent cell count reference ranges are not reported, since discordance with absolute values may lead to misinterpretation of CBC data. Current Interpretive Data was last revised on 2017. Testing performed by: [address] [address] Eosinophil pct 1.4 % ALFREDO Comment: Interpretive Data Percent cell count reference ranges are not reported, since discordance with absolute values may lead to misinterpretation of CBC data. Current Interpretive Data was last revised on 2017. Testing performed by: [address] [address] Basophil pct 0.7 % ALFREDO Comment: Interpretive Data Percent cell count reference ranges are not reported, since discordance with absolute values may lead to misinterpretation of CBC data. Current Interpretive Data was last revised on 2017. Testing performed by: [address] [address] Blood 10/27/2023 7:26 AM CDT 10/27/2023 8:35 AM CDT Ingrid Cheek MD LAB BLOOD ORDERABLES Final Resul t [place] [address] [facility] Department [place] [address] * (ABNORMAL) CBC with auto differential (10/27/2023 7:26 AM CDT) Pathologist [facility] WBC 7.3 3.8 - 9.9 K/cumm Comment:Testing performed by : [address] [address] Hgb 11.4(L) 13.0 - 17.5 g/dL ALFREDO Comment:Testing performed by : [address] [address] Hct 33.7(L) 38.9 - 50.3 % ALFREDO Comment:Testing performed by : [address] [address] Plt 292 150 - 400 K/cumm ALFREDO Comment:Testing performed by : [address] [address] MPV 9.2 9.1 - 12.3 fL ALFREDO PRESLEY Comment:Testing performed by : [address] [address] RBC 3.88(L) 4.30 - 5.80 M/cumm ALFREDO Comment:Testing performed by : [address] [address] MCV 86.9 81.3 - 96.4 fL ALFREDO Comment:Testing performed by : [address] [address] MCH 29.4 27.1 - 33.3 pg ALFREDO Comment:Testing performed by : [address] [address] MCHC 33.8 32.3 - 35.7 g/dL ALFREDO Comment:Testing performed by : [address] [address] RDW CV 12.8 11.1 - 14.9 % ALFREDO Comment:Testing performed by : [address] [address] RDW SD 40.4 35.7 - 48.1 fL AL[facility]O Comment:Testing performed by : [address] [address] NRBC abs 0.00 0.00 - 0.01 K/cumm ALFREDO Comment:Testing performed by : [address] [address] Blood 10/27/2023 7:26 AM CDT 10/27/2023 8:35 AM CDT us Ingrid Cheek MD LAB BLOOD ORDERABLES Final Resul t [facility] [address] [facility] Department [place] [address] * POCT glucose (10/26/2023 11:54 PM CDT) [facility] Signature Glucose, POC 137 70 - 199 mg/dL Comment:Testing performed by : [address] [address] Blood 10/26/2023 11:5 4 PM CDT 10/26/2023 11:54 PM CDT Ingrid Cheek MD LAB POCT ORDERABLES - DEVICE Fin al Result Performing Organization Address [facility] Co de Phone Number NIC[address] [place] [address] * POCT glucose (10/26/2023 8:26 PM CDT) Glucose, POC 130 70 - 199 mg/dL Comment:Testing performed by : [address] [address] Blood 10/26/2023 8:26 PM CDT 10/26/2023 8:26 PM CDT Ingrid Cheek MD LAB POCT ORDERABLES - DEVICE Fin al Result Performing Organization Address [facility] de Phone Number [address] [address] * POCT glucose (10/26/2023 5:00 PM CDT) Glucose, POC 118 70 - 199 mg/dL Comment:Testing performed by : [address] [address] Blood 10/26/2023 5:00 PM CDT 10/26/2023 5:00 PM CDT Ingrid Cheek MD LAB POCT ORDERABLES - DEVICE Fin al Result Performing Organization Address [facility] de Phone Number [address] [address] * POCT glucose (10/26/2023 12:35 PM CDT) Glucose, POC 102 70 - 199 mg/dL Comment:Testing performed by : [address] [address] Blood 10/26/2023 12:3 5 PM CDT 10/26/2023 12:35 PM CDT us Ingrid Cheek MD LAB POCT ORDERABLES - DEVICE Fin al Result Performing Organization Address [facility] Co de Phone Number ALFREDO PRESLEY [address] [facility] Department [place] [address] * eGFR (10/26/2023 12:15 PM CDT) eGFR 88 >=60 mL/min/1. 73 m2 Comment: Interpretive Data [...] was last reviewed 2021. Testing performed by: [facility], [address] [place] [address], [place]., [address] Blood 10/26/2023 12:1 5 PM CDT 10/26/2023 12:44 PM CDT us Sourav Park MD LAB BLOOD ORDERABLES Final Resu lt Performing Organization Address [facility] Co de Phone Number ALFREDO PRESLEY [address] [facility] Department [place] [address] * (ABNORMAL) Renal function panel (10/26/2023 12:15 PM CDT) Sodium 132(L) 135 - 145 mmol/L Comment:Testing performed by : [address] [address] Potassium, pl 3.9 3.3 - 4.9 mmol/L ALFREDO Comment:Testing performed by : [address], [place]., [address] Chloride 96(L) 97 - 110 mmol/L ALFREDO Comment:Testing performed by : [address] [address] CO2 23 22 - 32 mmol/L ALFREDO Comment:Testing performed by : [address] [address] Anion gap 13 2 - 15 mmol/L ALFREDO Comment:Testing performed by : [address] [address] BUN 12 6 - 25 mg/dL ALFREDO Comment:Testing performed by : [address] [address] Creatinine 0.80 0.80 - 1.30 mg/dL ALFREDO Comment:Testing performed by : [address] [address] Glucose 106 70 - 199 mg/dL ALFREDO Comment: Interpretive Data Fasting glucose >/= 126 mg/dl is diagnostic for diabetes. ?? Fasting is defined as no caloric intake for at least 8 hours. Fasting glucose between 100 mg/dl to 125 mg/dl is diagnostic of prediabetes. In a patient with classic symptoms of hyperglycemia or hyperglycemic crisis, a random glucose >/= 200 mg/dl is diagnostic for diabetes. In the absence of unequivocal hyperglycemia, results should be confirmed by repeat testing. The classification and Diagnosis of Diabetes Diabetes Care 2021; 46: S19-S40. Current interpretive data was last revised 2022. Testing performed by: [address] [address] Calcium 8.9 8.5 - 10.3 mg/dL ALFREDO PRESLEY Comment:Testing performed by : [facility], [address] [place] [address]., [address] Phosphorus, pl 3.4 2.3 - 4.5 mg/dL ALFREDO PRESLEY Comment:Testing performed by : [facility], [address] [place] [address]., [address] Albumin 4.2 3.5 - 5.0 g/dL ALFREDO Comment:Testing performed by : [facility], [address] [place] [address]., [address] Blood 10/26/2023 12:1 5 PM CDT 10/26/2023 12:44 PM CDT us Sourav Park MD LAB BLOOD ORDERABLES Final Resu lt ALFREDO [address] [facility] Department of Laboratories [place], [place] [id number] * eGFR (10/26/2023 11:49 AM CDT) eGFR 88 >=60 mL/min/1. 73 m2 Comment: Interpretive Data [...] was last reviewed 2021. Testing performed by: [address] [address] Blood 10/26/2023 11:4 9 AM CDT 10/26/2023 12:19 PM CDT us Jamshid [place] MD LAB BLOOD ORDERABLES Final Re sult [facility] [address] [facility] Department [place] [address] * Differential, auto (10/26/2023 11:49 AM CDT) Neutrophil abs 5.8 1.5 - 6.5 K/cumm Comment:Testing performed by : [address] [address] Imm gran abs 0.0 0.0 - 0.1 K/cumm ALFREDO Comment:Testing performed by : [address] [address] Lymphocyte abs 0.9 0.8 - 3.3 K/cumm ALFREDO Comment:Testing performed by : [address] [address] Monocyte abs 0.4 0.2 - 0.8 K/cumm ALFREDO Comment:Testing performed by : [address] [address] Eosinophil abs 0.0 0.0 - 0.5 K/cumm ALFREDO Comment:Testing performed by : [address] [address] Basophil abs 0.0 0.0 - 0.1 K/cumm ALFREDO Comment:Testing performed by : [address] [address] Neutrophil pct 79.8 % ALFREDO Comment: Interpretive Data Percent cell count reference ranges are not reported, since discordance with absolute values may lead to misinterpretation of CBC data. Current Interpretive Data was last revised on 2017. Testing performed by: [address] [address] Imm gran pct 0.3 % [facility] Comment: Interpretive Data Percent cell count reference ranges are not reported, since discordance with absolute values may lead to misinterpretation of CBC data. Current Interpretive Data was last revised on 2017. Testing performed by: [address] [address] Lymphocyte pct 12.9 % [facility] Comment: Interpretive Data Percent cell count reference ranges are not reported, since discordance with absolute values may lead to misinterpretation of CBC data. Current Interpretive Data was last revised on 2017. Testing performed by: [address] [address] Monocyte pct 6.0 % [facility] Comment: Interpretive Data Percent cell count reference ranges are not reported, since discordance with absolute values may lead to misinterpretation of CBC data. Current Interpretive Data was last revised on 2017. Testing performed by: [address] [address] Eosinophil pct 0.6 % [facility] Comment: Interpretive Data Percent cell count reference ranges are not reported, since discordance with absolute values may lead to misinterpretation of CBC data. Current Interpretive Data was last revised on 2017. Testing performed by: [address] [address] Basophil pct 0.4 % [facility] Comment: Interpretive Data Percent cell count reference ranges are not reported, since discordance with absolute values may lead to misinterpretation of CBC data. Current Interpretive Data was last revised on 2017. Testing performed by: [address] [address] Blood 10/26/2023 11:4 9 AM CDT 10/26/2023 12:20 PM CDT us Ingrid Cheek MD LAB BLOOD ORDERABLES Final [facility]ul t [facility] [address] [facility] Department [place] [address] * (ABNORMAL) CBC with auto differential (10/26/2023 11:49 AM CDT) [facility] WBC 7.2 3.8 - 9.9 K/cumm Comment:Testing performed by : [address] [address] Hgb 12.1(L) 13.0 - 17.5 g/dL [facility] Comment:Testing performed by : [address] [address] Hct 34.4(L) 38.9 - 50.3 % [facility] Comment:Testing performed by : [address] [address] Plt 310 150 - 400 K/cumm [facility] Comment:Testing performed by : [address] [address] MPV 9.1 9.1 - 12.3 fL [facility] Comment:Testing performed by : [address], [address] RBC 4.10(L) 4.30 - 5.80 M/cumm [facility] Comment:Testing performed by : [address] [address] MCV 83.9 81.3 - 96.4 fL [facility] Comment:Testing performed by : [address] [address] MCH 29.5 27.1 - 33.3 pg [facility] Comment:Testing performed by : [address] [address] MCHC 35.2 32.3 - 35.7 g/dL [facility] Comment:Testing performed by : [address], [address] RDW CV 12.8 11.1 - 14.9 % [facility] Comment:Testing performed by : [address] [address] RDW SD 39.0 35.7 - 48.1 fL [facility] Comment:Testing performed by : [address] [address] NRBC abs 0.00 0.00 - 0.01 K/cumm [facility] Comment:Testing performed by : [address] [address] Blood 10/26/2023 11:4 9 AM CDT 10/26/2023 12:20 PM CDT Ingrid Cheek MD LAB BLOOD ORDERABLES Final Resul t [facility] [address] [facility] Department [place] [address] * (ABNORMAL) Basic metabolic panel (10/26/2023 11:49 AM CDT) Sodium 133(L) 135 - 145 mmol/L Comment:Testing performed by : [address] [address] Potassium, pl 4.2 3.3 - 4.9 mmol/L [facility] Comment:Testing performed by : [address] [address] Chloride 97 97 - 110 mmol/L [facility] Comment:Testing performed by : [address] [address] CO2 23 22 - 32 mmol/L [facility] Comment:Testing performed by : [address] [address] Anion gap 13 2 - 15 mmol/L [facility] Comment:Testing performed by : [address] [address] BUN 12 6 - 25 mg/dL [facility] Comment:Testing performed by : [address] [address] Creatinine 0.80 0.80 - 1.30 mg/dL [facility] Comment:Testing performed by : [address] [address] Glucose 123 70 - 199 mg/dL [facility] Comment: Interpretive Data Fasting glucose >/= 126 mg/dl is diagnostic for diabetes. ?? Fasting is defined as no caloric intake for at least 8 hours. Fasting glucose between 100 mg/dl to 125 mg/dl is diagnostic of prediabetes. In a patient with classic symptoms of hyperglycemia or hyperglycemic crisis, a random glucose >/= 200 mg/dl is diagnostic for diabetes. In the absence of unequivocal hyperglycemia, results should be confirmed by repeat testing. The classification and Diagnosis of Diabetes Diabetes Care 202; 46: S19-S40. Current interpretive data was last revised 2022. Testing performed by: [facility], [address] [place] [address]., [address] Calcium 8.7 8.5 - 10.3 mg/dL [facility] Comment:Testing performed by : [facility], [address] [place] [address]., [address] Blood 10/26/2023 11:4 9 AM CDT 10/26/2023 12:19 PM CDT us Jamshid Kennedy MD LAB BLOOD ORDERABLES Final Re sult [facility] [address] [facility] Department of Laboratories [place], [place] [id number] * eGFR (10/26/2023 11:46 AM CDT) eGFR 88 >=60 mL/min/1. 73 m2 Comment: Interpretive Data [...] of Race in Diagnosing Kidney Disease, JASN 202). The CKD-EPI equation should not be used for patients with unstable renal function and has not been validated in children and those over 70. Current interpretive data was last reviewed 2021. Testing performed by: [address] [address] Blood 10/26/2023 11:4 6 AM CDT 10/26/2023 12:19 PM CDT us Ingrid Cheek MD LAB BLOOD ORDERABLES Final Resul t [facility] Department [place] [address] * Differential, auto (10/26/2023 11:46 AM CDT) Neutrophil abs 5.7 1.5 - 6.5 K/cumm Comment:Testing performed by : [address] [address] Imm gran abs 0.0 0.0 - 0.1 K/cumm [facility] Comment:Testing performed by : [address] [address] Lymphocyte abs 0.9 0.8 - 3.3 K/cumm [facility] Comment:Testing performed by : [address] [address] Monocyte abs 0.4 0.2 - 0.8 K/cumm [facility] Comment:Testing performed by : [address] [address] Eosinophil abs 0.0 0.0 - 0.5 K/cumm [facility] Comment:Testing performed by : [address] [address] Basophil abs 0.0 0.0 - 0.1 K/cumm [facility] Comment:Testing performed by : [address] [address] Neutrophil pct 80.3 % [facility] Comment: Interpretive Data Percent cell count reference ranges are not reported, since discordance with absolute values may lead to misinterpretation of CBC data. Current Interpretive Data was last revised on 2017. Testing performed by: [address] [address] Imm gran pct 0.3 % [facility] Comment: Interpretive Data Percent cell count reference ranges are not reported, since discordance with absolute values may lead to misinterpretation of CBC data. Current Interpretive Data was last revised on 2017. Testing performed by: [address] [address] Lymphocyte pct 12.2 % [facility] Comment: Interpretive Data Percent cell count reference ranges are not reported, since discordance with absolute values may lead to misinterpretation of CBC data. Current Interpretive Data was last revised on 2017. Testing performed by: [address] [address] Monocyte pct 6.2 % [facility] Comment: Interpretive Data Percent cell count reference ranges are not reported, since discordance with absolute values may lead to misinterpretation of CBC data. Current Interpretive Data was last revised on 2017. Testing performed by: [address] [address] Eosinophil pct 0.4 % [facility] Comment: Interpretive Data Percent cell count reference ranges are not reported, since discordance with absolute values may lead to misinterpretation of CBC data. Current Interpretive Data was last revised on 2017. Testing performed by: [address] [address] Basophil pct 0.6 % [facility] Comment: Interpretive Data Percent cell count reference ranges are not reported, since discordance with absolute values may lead to misinterpretation of CBC data. Current Interpretive Data was last revised on 2017. Testing performed by: [address] [address] Blood 10/26/2023 11:4 6 AM CDT 10/26/2023 12:19 PM CDT Ingrid Cheek MD LAB BLOOD ORDERABLES Final Resul t [facility] [address] [facility] Department [place] [address] * (ABNORMAL) Basic metabolic panel (10/26/2023 11:46 AM CDT) Sodium 133(L) 135 - 145 mmol/L Comment:Testing performed by : [address] [address] Potassium, pl 4.3 3.3 - 4.9 mmol/L [facility] Comment:Testing performed by : [address], [place]., [address] Chloride 97 97 - 110 mmol/L [facility] Comment:Testing performed by : [address] [address] CO2 23 22 - 32 mmol/L [facility] Comment:Testing performed by : [address] [address] Anion gap 13 2 - 15 mmol/L [facility] Comment:Testing performed by : [address] [address] BUN 12 6 - 25 mg/dL [facility] Comment:Testing performed by : [address] [address] Creatinine 0.80 0.80 - 1.30 mg/dL [facility] Comment:Testing performed by : [address] [address] Glucose 125 70 - 199 mg/dL [facility] Comment: Interpretive Data Fasting glucose >/= 126 mg/dl is diagnostic for diabetes. ?? Fasting is defined as no caloric intake for at least 8 hours. Fasting glucose between 100 mg/dl to 125 mg/dl is diagnostic of prediabetes. In a patient with classic symptoms of hyperglycemia or hyperglycemic crisis, a random glucose >/= 200 mg/dl is diagnostic for diabetes. In the absence of unequivocal hyperglycemia, results should be confirmed by repeat testing. The classification and Diagnosis of Diabetes Diabetes Care 202; 46: S19-S40. Current interpretive data was last revised 2022. Testing performed by: [address] [address] Calcium 8.8 8.5 - 10.3 mg/dL [facility] Comment:Testing performed by : [address] [address] Blood 10/26/2023 11:4 6 AM CDT 10/26/2023 12:19 PM CDT us Ingrid Cheek MD LAB BLOOD ORDERABLES Final Resul t [facility] Department [place] [address] * (ABNORMAL) CBC with auto differential (10/26/2023 11:46 AM CDT) WBC 7.1 3.8 - 9.9 K/cumm Comment:Testing performed by : [address] [address] Hgb 12.1(L) 13.0 - 17.5 g/dL [facility] Comment:Testing performed by : [address] [address] Hct 34.1(L) 38.9 - 50.3 % [facility] Comment:Testing performed by : [address] [address] Plt 312 150 - 400 K/cumm [facility] Comment:Testing performed by : [address] [address] MPV 9.1 9.1 - 12.3 fL [facility] Comment:Testing performed by : [address] [address] RBC 4.07(L) 4.30 - 5.80 M/cumm [facility] Comment:Testing performed by : [address] [address] MCV 83.8 81.3 - 96.4 fL [facility] PRES[facility] Comment:Testing performed by : [address] [address] MCH 29.7 27.1 - 33.3 pg [facility] Comment:Testing performed by : [address] [address] MCHC 35.5 32.3 - 35.7 g/dL [facility] Comment:Testing performed by : [address] [address] RDW CV 12.9 11.1 - 14.9 % [facility] Comment:Testing performed by : [address] [address] RDW SD 39.3 35.7 - 48.1 fL [facility] Comment:Testing performed by : [address] [address] NRBC abs 0.00 0.00 - 0.01 K/cumm [facility] Comment:Testing performed by : [address] [address] Blood 10/26/2023 11:4 6 AM CDT 10/26/2023 12:19 PM CDT us Ingrid Cheek MD LAB BLOOD ORDERABLES Final Resul t Performing Organization Address [facility] Co de Phone Number NIC[address] [place] [address] * POCT glucose (10/26/2023 7:38 AM CDT) Glucose, POC 121 70 - 199 mg/dL Comment:Testing performed by : [address] [address] Blood 10/26/2023 7:38 AM CDT 10/26/2023 7:38 AM CDT Ingrid Cheek MD LAB POCT ORDERABLES - DEVICE Fin al Result Performing Organization Address City/[facility] Co de Phone Number [address] [place] [address] * POCT glucose (10/25/2023 8:22 PM CDT) Glucose, POC 121 70 - 199 mg/dL Comment:Testing performed by : [address] [address] Glucose comment 1 Use This Result [facility] PRESLEY Comment:Testing performed by : [facility], [address] [place] [address]., [address] Glucose comment 2 RN/MD Notified [facility] Comment:Testing performed by : [address] [address] Blood 10/25/2023 8:22 PM CDT 10/25/2023 8:22 PM CDT Ingrid Cheek MD LAB POCT ORDERABLES - DEVICE Fin al Result Performing Organization Address City/[facility] Co de Phone Number [address] [place] [address] * POCT glucose (10/25/2023 5:05 PM CDT) Glucose, POC 115 70 - 199 mg/dL Comment:Testing performed by : [address] [address] Blood 10/25/2023 5:05 PM CDT 10/25/2023 5:05 PM CDT Ingrid Cheek MD LAB POCT ORDERABLES - DEVICE Fin al Result Performing Organization Address [facility] Co de Phone Number [address] [place] [address] * POCT glucose (10/25/2023 11:55 AM CDT) Glucose, POC 113 70 - 199 mg/dL Comment:Testing performed by : [address] [address] Blood 10/25/2023 11:5 5 AM CDT 10/25/2023 11:55 AM CDT Result [facility] Ingrid Cheek MD LAB POCT ORDERABLES - DEVICE Fin al Result Performing Organization Address City/[facility]/ZIP Co de Phone Number [address] [place] [address] * eGFR (10/25/2023 11:38 AM CDT) eGFR >90 >=60 mL/min/1. 73 [...] was last reviewed 2021. Testing performed by: [facility], [address] [place] [address]., [address] Blood 10/25/2023 11:3 8 AM CDT 10/25/2023 12:47 PM CDT us Sourav Park MD LAB BLOOD ORDERABLES Final Resu lt N[facility] [address] [facility] Department [place] [address] * Differential, auto (10/25/2023 11:38 AM CDT) Pathologist [facility] Neutrophil abs 5.0 1.5 - 6.5 K/cumm Comment:Testing performed by : [address] [address] Imm gran abs 0.0 0.0 - 0.1 K/cumm [facility] Comment:Testing performed by : [address] [address] Lymphocyte abs 0.8 0.8 - 3.3 K/cumm [facility] Comment:Testing performed by : [address] [address] Monocyte abs 0.5 0.2 - 0.8 K/cumm [facility] Comment:Testing performed by : [address] [address] Eosinophil abs 0.1 0.0 - 0.5 K/cumm [facility] Comment:Testing performed by : [address] [address] Basophil abs 0.0 0.0 - 0.1 K/cumm [facility] Comment:Testing performed by : [address] [address] Neutrophil pct 79.3 % [facility] Comment: Interpretive Data Percent cell count reference ranges are not reported, since discordance with absolute values may lead to misinterpretation of CBC data. Current Interpretive Data was last revised on 2017. Testing performed by: [address] [address] Imm gran pct 0.2 % [facility] Comment: Interpretive Data Percent cell count reference ranges are not reported, since discordance with absolute values may lead to misinterpretation of CBC data. Current Interpretive Data was last revised on 2017. Testing performed by: [address] [address] Lymphocyte pct 11.9 % [facility] Comment: Interpretive Data Percent cell count reference ranges are not reported, since discordance with absolute values may lead to misinterpretation of CBC data. Current Interpretive Data was last revised on 2017. Testing performed by: [address] [address] Monocyte pct 7.2 % [facility] Comment: Interpretive Data Percent cell count reference ranges are not reported, since discordance with absolute values may lead to misinterpretation of CBC data. Current Interpretive Data was last revised on 2017. Testing performed by: [address] [address] Eosinophil pct 0.9 % [facility] Comment: Interpretive Data Percent cell count reference ranges are not reported, since discordance with absolute values may lead to misinterpretation of CBC data. Current Interpretive Data was last revised on 2017. Testing performed by: [address] [address] Basophil pct 0.5 % [facility] Comment: Interpretive Data Percent cell count reference ranges are not reported, since discordance with absolute values may lead to misinterpretation of CBC data. Current Interpretive Data was last revised on 2017. Testing performed by: [address] [address] Blood 10/25/2023 11:3 8 AM CDT 10/25/2023 12:47 PM CDT us Ingrid Cheek MD LAB BLOOD ORDERABLES Final Resul t [place] [address] [facility] Department of Laboratories [place], [place] [id number] * (ABNORMAL) CBC with auto differential (10/25/2023 11:38 AM CDT) WBC 6.4 3.8 - 9.9 K/cumm Comment:Testing performed by : [address] [address] Hgb 11.0(L) 13.0 - 17.5 g/dL [facility] PRESLEY Comment:Testing performed by : [address] [address] Hct 30.8(L) 38.9 - 50.3 % [facility] Comment:Testing performed by : [address] [address] Plt 282 150 - 400 K/cumm [facility] Comment:Testing performed by : [address] [address] MPV 9.1 9.1 - 12.3 fL [facility] PRES[facility] Comment:Testing performed by : [address] [address] RBC 3.68(L) 4.30 - 5.80 M/cumm [facility] PRES[facility] Comment:Testing performed by : [address] [address] MCV 83.7 81.3 - 96.4 fL [facility] Comment:Testing performed by : [address] [address] MCH 29.9 27.1 - 33.3 pg [facility] Comment:Testing performed by : [address] [address] MCHC 35.7 32.3 - 35.7 g/dL [facility] Comment:Testing performed by : [address] [address] RDW CV 12.8 11.1 - 14.9 % [facility] Comment:Testing performed by : [address] [address] RDW SD 39.0 35.7 - 48.1 fL [facility] Comment:Testing performed by : [address] [address] NRBC abs 0.00 0.00 - 0.01 K/cumm [facility] Comment:Testing performed by : [address] [address] Blood 10/25/2023 11:3 8 AM CDT 10/25/2023 12:47 PM CDT us Ingrid Cheek MD LAB BLOOD ORDERABLES Final Resul t [facility] [address] [facility] Department [place] [address] * (ABNORMAL) Renal function panel (10/25/2023 11:38 AM CDT) Pathologist [facility] Sodium 125(L) 135 - 145 mmol/L Comment:Testing performed by : [address] [address] Potassium, pl 4.5 3.3 - 4.9 mmol/L [facility] Comment:Testing performed by : [address] [address] Chloride 94(L) 97 - 110 mmol/L [facility] Comment:Testing performed by : [address], [place]., [address] CO2 23 22 - 32 mmol/L [facility] Comment:Testing performed by : [address] [address] Anion gap 8 2 - 15 mmol/L [facility] Comment:Testing performed by : [address] [address] BUN 11 6 - 25 mg/dL [facility] Comment:Testing performed by : [address] [address] Creatinine 0.70(L) 0.80 - 1.30 mg/dL [facility] Comment:Testing performed by : [address] [address] Glucose 118 70 - 199 mg/dL [facility] Comment: Interpretive Data Fasting glucose >/= 126 mg/dl is diagnostic for diabetes. ?? Fasting is defined as no caloric intake for at least 8 hours. Fasting glucose between 100 mg/dl to 125 mg/dl is diagnostic of prediabetes. In a patient with classic symptoms of hyperglycemia or hyperglycemic crisis, a random glucose >/= 200 mg/dl is diagnostic for diabetes. In the absence of unequivocal hyperglycemia, results should be confirmed by repeat testing. The classification and Diagnosis of Diabetes Diabetes Care 202; 46: S19-S40. Current interpretive data was last revised 2022. Testing performed by: [address] [address] Calcium 8.2(L) 8.5 - 10.3 mg/dL [facility] Comment:Testing performed by : [address] [address] Phosphorus, pl 3.1 2.3 - 4.5 mg/dL [facility] Comment:Testing performed by : [address] [address] Albumin 3.6 3.5 - 5.0 g/dL [facility] Comment:Testing performed by : [address] [address] Blood 10/25/2023 11:3 8 AM CDT 10/25/2023 12:47 PM CDT Sourav Park MD LAB BLOOD ORDERABLES Final Resu lt Performing Organization Address City/[facility]/ZIP Co de Phone Number [address] [place] [address] * POCT glucose (10/25/2023 9:20 AM CDT) Glucose, POC 110 70 - 199 mg/dL Comment:Testing performed by : [address] [address] Blood 10/25/2023 9:20 AM CDT 10/25/2023 9:20 AM CDT us Ingrid Cheek MD LAB POCT ORDERABLES - DEVICE Fin al Result Performing Organization Address [facility] Co de Phone Number [address] [address] * POCT glucose (10/24/2023 8:23 PM CDT) Glucose, POC 188 70 - 199 mg/dL Comment:Testing performed by : [address] [address] Blood 10/24/2023 8:23 PM CDT 10/24/2023 8:23 PM CDT Félix Patiño MD LAB POCT ORDERABLES - DEVICE Fin al Result Performing Organization Address City/[facility] Co de Phone Number [address] [address] * POCT glucose (10/24/2023 5:07 PM CDT) Glucose, POC 112 70 - 199 mg/dL Comment:Testing performed by : [facility], [address] [place] [address]., [address] Blood 10/24/2023 5:07 PM CDT 10/24/2023 5:07 PM CDT Félix Patiño MD LAB POCT ORDERABLES - DEVICE Fin al Result Performing Organization Address City/[facility]/ZIP Co de Phone Number [place] [id number] [facility] Department [place] [address] * ECG 12 lead (10/24/2023 2:46 PM CDT) [facility] Ventricular Rate EKG/Min 63 BPM [facility] Atrial Rate 63 BPM [facility] ID-Interval (MSEC) 154 ms [facility] QRS-Interval (MSEC) 90 ms [facility] QT-Interval (MSEC) 440 ms [facility] QTc 450 ms [facility] P [place] 40 degrees [facility] R [place] 1 degrees [facility] T [place] 63 degrees [facility] Diagnosis Normal sinus rhythm Nonspecific ST and T wave abnormality Abnormal ECG When compared with ECG of 23-OCT-2023 15:38, Premature atrial complexes are no longer Present T wave inversion no longer evident in Inferior leads T wave inversion no longer evident in Lateral leads Confirmed by DIVINA DURON M.D. ([id number]) on 10/31/2023 11:49:48 AM [facility] 10/24/2023 2:46 PM CDT 10/31/2023 11:49 AM CDT us Jaren Goyal MD ECG ORDERABLES Final Result Performing Organization Address City/[facility]/ZIP Co de Phone Number [facility] * (ABNORMAL) Osmolality, blood (10/24/2023 12:26 PM CDT) [facility] Osmo 264(L) 275 - 295 mOsm/kg Blood 10/24/2023 12:2 6 PM CDT 10/24/2023 2:34 PM CDT Narrative ALFREDO - 10/24/2023 2:59 PM CDT Add to morning labs from today Félix Patiño MD LAB BLOOD ORDERABLES Final Resul t Performing Organization Address [facility] Co de Phone Number [facility] [address] [facility] [place] [address] * POCT glucose (10/24/2023 11:28 AM CDT) Pathologist [facility] Glucose, POC 136 70 - 199 mg/dL Comment:Testing performed by : [address] [address] Glucose comment 1 Use This Result [facility] Comment:Testing performed by : [address] [address] Blood 10/24/2023 11:2 8 AM CDT 10/24/2023 11:28 AM CDT Félix Patiño MD LAB POCT ORDERABLES - DEVICE Fin al Result Performing Organization Address [facility] Co de Phone Number [facility] [place] [address] * eGFR (10/24/2023 7:46 AM CDT) [facility] eGFR 88 >=60 mL/min/1. 73 m2 Comment: Interpretive Data [...] was last reviewed 2021. Testing performed by: [address] [address] Blood 10/24/2023 7:46 AM CDT 10/24/2023 9:33 AM CDT Jaren Goyal MD LAB BLOOD ORDERABLES Final Result Performing Organization Address City/[facility]/ZIP Co de Phone Number [facility] [address] [facility] [place] [address] * Thyroid Function Sampson (10/24/2023 7:46 AM CDT) TSH 1.81 0.30 - 4.20 mcIUnit/mL Comment:Testing performed by : [address] [address] [address] Blood 10/24/2023 7:46 AM CDT 10/24/2023 9:33 AM CDT Jaren Goyal MD LAB BLOOD ORDERABLES Final Result Performing Organization Address City/[facility]/ZIP Co de Phone Number [address] [address] * (ABNORMAL) Hemoglobin A1c (10/24/2023 7:46 AM CDT) Hgb A1C 6.9(H) 4.0 - 5.6 % Comment:Testing performed by : [address] [address] Estimated Average Glucose 151 mg/dL ALFREDO Comment: The ADA recommends reporting an estimated Average Glucose (eAG) with all Hemoglobin A1c results using the equation derived from a study of 507 normal and diabetic adults. ??Minority populations were underrepresented and children were not included. ?? (Diabetes Care 31:8487-8455, 2008). ??The eAG is not equivalent to a fasting glucose. Testing performed by: [facility], [address] [place] [address]., [address] Blood 10/24/2023 7:46 AM CDT 10/24/2023 9:33 AM CDT us Jaren Goyal MD LAB BLOOD ORDERABLES Final Result ALFREDO [address] [facility] Department [place] [address] * Lipid panel (10/24/2023 7:46 AM CDT) Cholesterol 101 30 - 199 mg/dL Comment: [...] last revised on 2018. Testing performed by: [address] [address] Triglycerides 79 <=149 mg/dL ALFREDO PRESLEY Comment: Interpretive Data Ages [...] last revised on 2018. Testing performed by: [address] [address] HDL 45 >=40 mg/dL [facility] Comment: Interpretive Data Ages < or = [...] last revised on 2018. Testing performed by: [address] [address] LDL, calculated 40 <=129 mg/dL [facility] Comment: Interpretive Data Ages < or = [...] last revised on 2018. Testing performed by: [address] [address] Non-HDL Cholesterol 56 mg/dL ALFREDO PRESLEY Comment: [...] last revised on 2018. Testing performed by: [address] [address] Chol/HDL ratio 2 ALFREDO Comment:Testing performed by : [address] [address] Blood 10/24/2023 7:46 AM CDT 10/24/2023 9:33 AM CDT us Jaren Goyal MD LAB BLOOD ORDERABLES Final Result [facility] [facility] Department [place] [address] * (ABNORMAL) CBC without differential (10/24/2023 7:46 AM CDT) WBC 6.7 3.8 - 9.9 K/cumm Comment:Testing performed by : [address] [address] Hgb 11.6(L) 13.0 - 17.5 g/dL ALFREDO Comment:Testing performed by : [address], [address] Hct 33.8(L) 38.9 - 50.3 % ALFREDO Comment:Testing performed by : [address] [address] Plt 310 150 - 400 K/cumm ALFREDO Comment:Testing performed by : [address], [address] MPV 9.3 9.1 - 12.3 fL ALFREDO Comment:Testing performed by : [address], [address] RBC 3.96(L) 4.30 - 5.80 M/cumm ALFREDO Comment:Testing performed by : [address], [address] MCV 85.4 81.3 - 96.4 fL ALFREDO Comment:Testing performed by : [address], [address] MCH 29.3 27.1 - 33.3 pg ALFREDO Comment:Testing performed by : [address], [address] MCHC 34.3 32.3 - 35.7 g/dL ALFREDO Comment:Testing performed by : [address], [address] RDW CV 12.9 11.1 - 14.9 % ALFREDO Comment:Testing performed by : [address], [address] RDW SD 39.8 35.7 - 48.1 fL ALFREDO Comment:Testing performed by : [address], [address] NRBC abs 0.00 0.00 - 0.01 K/cumm ALFREDO Comment:Testing performed by : [address], [address] Blood 10/24/2023 7:46 AM CDT 10/24/2023 9:33 AM CDT us Jaren Goyal MD LAB BLOOD ORDERABLES Final Result ALFREDO [address] [facility] Department [place] [address] * (ABNORMAL) Comprehensive metabolic panel (10/24/2023 7:46 AM CDT) Sodium 127(L) 135 - 145 mmol/L Comment:Testing performed by : [address] [address] Potassium, pl 4.6 3.3 - 4.9 mmol/L ALFREDO Comment:Testing performed by : [address] [address] Chloride 96(L) 97 - 110 mmol/L ALFREDO Comment:Testing performed by : [address] [address] CO2 21(L) 22 - 32 mmol/L ALFREDO Comment:Testing performed by : [address] [address] Anion gap 10 2 - 15 mmol/L ALFREDO Comment:Testing performed by : [address] [address] BUN 8 6 - 25 mg/dL ALFREDO Comment:Testing performed by : [address] [address] Creatinine 0.80 0.80 - 1.30 mg/dL ALFREDO Comment:Testing performed by : [address] [address] Glucose 116 70 - 199 mg/dL ALFREDO Comment: Interpretive Data Fasting glucose >/= 126 mg/dl is diagnostic for diabetes. ?? Fasting is defined as no caloric intake for at least 8 hours. Fasting glucose between 100 mg/dl to 125 mg/dl is diagnostic of prediabetes. In a patient with classic symptoms of hyperglycemia or hyperglycemic crisis, a random glucose >/= 200 mg/dl is diagnostic for diabetes. In the absence of unequivocal hyperglycemia, results should be confirmed by repeat testing. The classification and Diagnosis of Diabetes Diabetes Care 2022; 46: S19-S40. Current interpretive data was last revised 2022. Testing performed by: [address] [address] Calcium 8.4(L) 8.5 - 10.3 mg/dL ALFREDO Comment:Testing performed by : [address] [address] Bilirubin, total 0.5 0.1 - 1.2 mg/dL ALFREDO Comment:Testing performed by : [address] [address] Protein, pl 5.9(L) 6.5 - 8.5 g/dL ALFREDO Comment:Testing performed by : [address] [address] Albumin 3.8 3.5 - 5.0 g/dL ALFREDO Comment:Testing performed by : [address] [address] Alk phos 99 40 - 130 Units/L ALFREDO Comment:Testing performed by : [address] [address] ALT 14 7 - 55 Units/L ALFREDO Comment:Testing performed by : [address] [address] AST 16 10 - 50 Units/L ALFREDO Comment:Testing performed by : [address] [address] Blood 10/24/2023 7:46 AM CDT 10/24/2023 9:33 AM CDT us Jaren Goyal MD LAB BLOOD ORDERABLES Final Result ALFREDO [address] [facility] Department [place] [address] * eGFR (10/23/2023 11:39 PM CDT) [facility] Signature eGFR 85 >=60 mL/min/1. 73 m2 Comment: Interpretive Data [...] was last reviewed 2021. Testing performed by: [facility], [address] [place] [address]., [address] Blood 10/23/2023 11:3 9 PM CDT 10/23/2023 11:47 PM CDT us Jaren Goyal MD LAB BLOOD ORDERABLES Final Result Performing Organization Address City/State/[facility] Co nc Phone Number [facility] [address] [facility] Department [place] [address] * Magnesium (10/23/2023 11:39 PM CDT) [facility] Signature Magnesium 1.7 1.4 - 2.5 mg/dL Comment:Testing performed by : [address] [address] Blood 10/23/2023 11:3 9 PM CDT 10/23/2023 11:47 PM CDT us Jaren Goyal MD LAB BLOOD ORDERABLES Final Result ALFREDO [address] [facility] Department [place] [address] * (ABNORMAL) Basic metabolic panel (10/23/2023 11:39 PM CDT) Sodium 129(L) 135 - 145 mmol/L Comment:Testing performed by : [address] [address] Potassium, pl 4.1 3.3 - 4.9 mmol/L ALFREDO Comment:Testing performed by : [address] [address] Chloride 97 97 - 110 mmol/L ALFREDO Comment:Testing performed by : [address] [address] CO2 22 22 - 32 mmol/L ALFREDO Comment:Testing performed by : [address] [address] Anion gap 10 2 - 15 mmol/L ALFREDO Comment:Testing performed by : [address] [address] BUN 9 6 - 25 mg/dL ALFREDO Comment:Testing performed by : [address] [address] Creatinine 0.90 0.80 - 1.30 mg/dL ALFREDO Comment:Testing performed by : [address] [address] Glucose 115 70 - 199 mg/dL [facility] Comment: Interpretive Data Fasting glucose >/= 126 mg/dl is diagnostic for diabetes. ?? Fasting is defined as no caloric intake for at least 8 hours. Fasting glucose between 100 mg/dl to 125 mg/dl is diagnostic of prediabetes. In a patient with classic symptoms of hyperglycemia or hyperglycemic crisis, a random glucose >/= 200 mg/dl is diagnostic for diabetes. In the absence of unequivocal hyperglycemia, results should be confirmed by repeat testing. The classification and Diagnosis of Diabetes Diabetes Care 202; 46: S19-S40. Current interpretive data was last revised 2022. Testing performed by: [address] [address] Calcium 8.2(L) 8.5 - 10.3 mg/dL [facility] Comment:Testing performed by : [facility], [address] [place] [address]., [address] Blood 10/23/2023 11:3 9 PM CDT 10/23/2023 11:47 PM CDT Jaren Goyal MD LAB BLOOD ORDERABLES Final Result Performing Organization Address [facility] Co de Phone Number [address] [address] * POCT glucose (10/23/2023 10:24 PM CDT) [facility] Glucose, POC 127 70 - 199 mg/dL Comment:Testing performed by : [facility], [address] [place] [address]., [address] Blood 10/23/2023 10:2 4 PM CDT 10/23/2023 10:24 PM CDT Jaren Goyal MD LAB POCT ORDERABLES - DEVICE Final Result Performing Organization Address [facility] Co de Phone Number [address] [address] * (ABNORMAL) Osmolality, urine (10/23/2023 9:06 PM CDT) [facility] Osmo, ur 136(L) 300 - 800 mOsm/kg Urine 10/23/2023 9:06 PM CDT 10/23/2023 10:18 PM CDT Jacqui Charles MD LAB URINE ORDERABLES Adeline l Result Performing Organization Address [facility] Co de Phone Number [address] [address] * Chloride, urine, random (10/23/2023 9:06 PM CDT) Chloride, ur 25 mmol/L Comment: Interpretive Data No reference range established. Current interpretive data was last revised 2018. Urine 10/23/2023 9:06 PM CDT 10/23/2023 10:18 PM CDT Jacqui Charles MD LAB URINE ORDERABLES Adeline l Result Performing Organization Address [facility]/ZIP Co de Phone Number [address] [place] [address] * Sodium, urine, random (10/23/2023 9:06 PM CDT) Sodium, ur 40 mmol/L Comment: Interpretive Data No reference range established. Current interpretive data was last revised 2018. Urine 10/23/2023 9:06 PM CDT 10/23/2023 10:18 PM CDT Jacqui Charles MD LAB URINE ORDERABLES Adeline l Result Performing Organization Address [facility] Co de Phone Number [address] [place] [address] * Urine culture Urine (10/23/2023 6:11 PM CDT) Report Final Report: No growth Comment:Testing performed by : [facility], [address] [place] [address] Urine 10/23/2023 6:11 PM CDT 10/23/2023 10:32 PM CDT Narrative ALFREDO - 10/25/2023 7:26 AM CDT Urine culture reflexed based upon urinalysis results. Testing performed by [facility] Microbiology Laboratory ([phone]) Briana CASTRO LAB MICROBIOLOGY - GENERAL NEELAM AVERY Final Result Performing Organization Address [facility]/ZIP Co de Phone Number [address] [place] [address] * (ABNORMAL) Urinalysis, microscopic only (10/23/2023 6:11 PM CDT) WBC, ur 21-50(A) 0 - 5 /HPF Comment:Testing performed by : [address] [address] RBC, ur >50(A) 0 - 2 /HPF ALFREDO PRESLEY Comment:Testing performed by : [address] [address] Mucous, ur Present(A) ALFREDO PRESLEY Comment:Testing performed by : [address] [address] Culture Reflex Comment Reflex to urine culture will be performed. ALFREDO Comment:Testing performed by : [address] [address] Urine 10/23/2023 6:11 PM CDT 10/23/2023 6:19 PM CDT us Briana CASTRO LAB URINE ORDERABLES Final Resu lt ALFREDO PRESLEY [address] [facility] [place] [address] * (ABNORMAL) Urinalysis reflex to microscopic and culture Urine (10/23/2023 6:11 PM CDT) Color, ur Madai Yellow Comment:Testing performed by : [address] [address] Clarity, ur Cloudy(A) Clear ALFREDO Comment:Testing performed by : [address] [address] Specific gravity, ur 1.016 1.003 - 1.030 ALFREDO Comment:Testing performed by : [address] [address] pH, urine 8.0 ALFREDO Comment: Interpretive Data ? Urine pH is affected by diet, medications, systemic acid-base disturbances, and renal tubular function. ??pH may affect urinary stone formation. ??For example, urine pH below 6.0 may help reduce the tendency for calcium phosphate stones and pH greater than 6.0 may reduce the tendency for uric acid stone formation. Source: [facility] [employer] Current Interpretive Data was last revised on 2017 Testing performed by: [facility], [address] [place] [address]., [address] Protein, ur ql 1+(A) Negative ALFREDO Comment:Testing performed by : [address] [address] Glucose, ur ql Negative Negative ALFREDO Comment:Testing performed by : [address], [place]., [address] Ketones, ur 2+(A) Negative ALFREDO Comment:Testing performed by : [address] [address] Bilirubin, ur Negative Negative ALFREDO Comment:Testing performed by : [address] [address] Blood, ur 3+(A) Negative ALFREDO Comment:Testing performed by : [address] [address] Urobilinogen, ur 2.0(A) <2.0 mg/dL ALFREDO Comment:Testing performed by : [address] [address] Nitrite, ur Negative Negative ALFREDO Comment:Testing performed by : [address] [address] Leukocyte esterase, ur 2+(A) Negative ALFREDO Comment:Testing performed by : [address] [address] UA reflex comment Reflex to microscopic UA will be performed. ALFREDO Comment:Testing performed by : [address] [address] Urine 10/23/2023 6:11 PM CDT 10/23/2023 6:19 PM CDT us Briana CASTRO LAB MICROBIOLOGY - GENERAL NEELAM AVERY Final Result ALFREDO PRESLEY [address] [facility] Department [place] [address] * eGFR (10/23/2023 3:47 PM CDT) [facility] eGFR 88 >=60 mL/min/1. 73 m2 Comment: Interpretive Data [...] was last reviewed 2021. Testing performed by: [facility], [address] [place] [address]., [address] Blood 10/23/2023 3:47 PM CDT 10/23/2023 3:52 PM CDT us Briana CASTRO LAB BLOOD ORDERABLES Final Resu lt ALFREDO [address] [facility] Department [place] [address] * (ABNORMAL) Differential, auto (10/23/2023 3:47 PM CDT) [facility] Neutrophil abs 6.4 1.5 - 6.5 K/cumm Comment:Testing performed by : [facility], [address] [place] [address], [place]., [address] Imm gran abs 0.0 0.0 - 0.1 K/cumm [facility] Comment:Testing performed by : [facility], [address] [place] [address], [place]., [address] Lymphocyte abs 0.7(L) 0.8 - 3.3 K/cumm [facility] Comment:Testing performed by : [address], [place]., [address] Monocyte abs 0.4 0.2 - 0.8 K/cumm [facility] Comment:Testing performed by : [address], [place]., [address] Eosinophil abs 0.0 0.0 - 0.5 K/cumm [facility] Comment:Testing performed by : [address] [address] Basophil abs 0.0 0.0 - 0.1 K/cumm [facility] Comment:Testing performed by : [address] [address] Neutrophil pct 83.8 % [facility] Comment: Interpretive Data Percent cell count reference ranges are not reported, since discordance with absolute values may lead to misinterpretation of CBC data. Current Interpretive Data was last revised on 2017. Testing performed by: [address] [address] Imm gran pct 0.4 % [facility] Comment: Interpretive Data Percent cell count reference ranges are not reported, since discordance with absolute values may lead to misinterpretation of CBC data. Current Interpretive Data was last revised on 2017. Testing performed by: [address] [address] Lymphocyte pct 9.2 % CERNER Comment: Interpretive Data Percent cell count reference ranges are not reported, since discordance with absolute values may lead to misinterpretation of CBC data. Current Interpretive Data was last revised on 2017. Testing performed by: [address] [address] Monocyte pct 5.8 % CERNER Comment: Interpretive Data Percent cell count reference ranges are not reported, since discordance with absolute values may lead to misinterpretation of CBC data. Current Interpretive Data was last revised on 2017. Testing performed by: [address] [address] Eosinophil pct 0.3 % ALFREDO Comment: Interpretive Data Percent cell count reference ranges are not reported, since discordance with absolute values may lead to misinterpretation of CBC data. Current Interpretive Data was last revised on 2017. Testing performed by: [address] [address] Basophil pct 0.5 % ALFREDO Comment: Interpretive Data Percent cell count reference ranges are not reported, since discordance with absolute values may lead to misinterpretation of CBC data. Current Interpretive Data was last revised on 2017. Testing performed by: [address] [address] Blood 10/23/2023 3:47 PM CDT 10/23/2023 3:52 PM CDT us Briana CASTRO LAB BLOOD ORDERABLES Final Resu lt ALFREDO [address] [facility] Department [place] [address] * (ABNORMAL) Comprehensive metabolic panel (10/23/2023 3:47 PM CDT) Sodium 122(L) 135 - 145 mmol/L Comment:Testing performed by : [address] [address] Potassium, pl 4.4 3.3 - 4.9 mmol/L ALFREDO Comment:Testing performed by : [address] [address] Chloride 88(L) 97 - 110 mmol/L ALFREDO Comment:Testing performed by : [address] [address] CO2 19(L) 22 - 32 mmol/L ALFREDO Comment:Testing performed by : [address] [address] Anion gap 15 2 - 15 mmol/L ALFREDO Comment:Testing performed by : [address] [address] BUN 11 6 - 25 mg/dL ALFREDO Comment:Testing performed by : [address] [address] Creatinine 0.80 0.80 - 1.30 mg/dL ALFREDO Comment:Testing performed by : [address] [address] Glucose 120 70 - 199 mg/dL [facility] Comment: Interpretive Data Fasting glucose >/= 126 mg/dl is diagnostic for diabetes. ?? Fasting is defined as no caloric intake for at least 8 hours. Fasting glucose between 100 mg/dl to 125 mg/dl is diagnostic of prediabetes. In a patient with classic symptoms of hyperglycemia or hyperglycemic crisis, a random glucose >/= 200 mg/dl is diagnostic for diabetes. In the absence of unequivocal hyperglycemia, results should be confirmed by repeat testing. The classification and Diagnosis of Diabetes Diabetes Care 2021; 46: S19-S40. Current interpretive data was last revised 2022. Testing performed by: [address] [address] Calcium 9.0 8.5 - 10.3 mg/dL ALFREDO Comment:Testing performed by : [address] [address] Bilirubin, total 0.4 0.1 - 1.2 mg/dL ALFREDO Comment:Testing performed by : [address] [address] Protein, pl 6.8 6.5 - 8.5 g/dL ALFREDO Comment:Testing performed by : [address] [address] Albumin 4.3 3.5 - 5.0 g/dL ALFREDO Comment:Testing performed by : [address] [address] Alk phos 112 40 - 130 Units/L ALFREDO Comment:Testing performed by : [address] [address] ALT 17 7 - 55 Units/L ALFREDO PRESLEY Comment:Testing performed by : [address] [address] AST 20 10 - 50 Units/L ALFREDO PRESLEY Comment:Testing performed by : [address] [address] Blood 10/23/2023 3:47 PM CDT 10/23/2023 3:52 PM CDT Briana CASTRO LAB BLOOD ORDERABLES Final Resu lt ALFREDO [address] [facility] Department [place] [address] * (ABNORMAL) CBC with auto differential (10/23/2023 3:47 PM CDT) WBC 7.7 3.8 - 9.9 K/cumm Comment:Testing performed by : [address] [address] Hgb 12.5(L) 13.0 - 17.5 g/dL ALFREDO PRESLEY Comment:Testing performed by : [address] [address] Hct 34.9(L) 38.9 - 50.3 % ALFREDO PRESLEY Comment:Testing performed by : [address] [address] Plt 327 150 - 400 K/cumm ALRFEDO PRESLEY Comment:Testing performed by : [address] [address] MPV 9.0(L) 9.1 - 12.3 fL ALFREDO PRESLEY Comment:Testing performed by : [address] [address] RBC 4.25(L) 4.30 - 5.80 M/cumm ALFREDO PRESLEY Comment:Testing performed by : [address] [address] MCV 82.1 81.3 - 96.4 fL ALFREDO PRESLEY Comment:Testing performed by : [address] [address] MCH 29.4 27.1 - 33.3 pg ALFREDO PRESLEY Comment:Testing performed by : [facility], [address] [place] [address]., [address] MCHC 35.8(H) 32.3 - 35.7 g/dL ALFREDO PRESLEY Comment:Testing performed by : [address] [address] RDW CV 12.6 11.1 - 14.9 % ALFREDO PRESLEY Comment:Testing performed by : [address] [address] RDW SD 37.8 35.7 - 48.1 fL ALFREDO PRESLEY Comment:Testing performed by : [address] [address] NRBC abs 0.00 0.00 - 0.01 K/cumm ALFREDO PRESLEY Comment:Testing performed by : [address] [address] Blood 10/23/2023 3:47 PM CDT 10/23/2023 3:52 PM CDT us Briana CASTRO LAB BLOOD ORDERABLES Final Resu lt ALFREDO [address] [facility] Department [place] [address] * ECG 12 lead (10/23/2023 3:38 PM CDT) Ventricular Rate EKG/Min 67 BPM [facility] Atrial Rate 67 BPM [facility] ID-Interval (MSEC) 112 ms [facility] QRS-Interval (MSEC) 88 ms [facility] QT-Interval (MSEC) 418 ms [facility] QTc 441 ms [facility] P [place] 37 degrees [facility] R [place] -22 degrees [facility] T [place] 203 degrees [facility] Diagnosis Sinus rhythm with Premature atrial complexes Left ventricular hypertrophy with repolarization abnormality Abnormal ECG No previous ECGs available Confirmed by ELVIS MARSH M.D. ([id number]) on 10/26/2023 5:51:51 PM [facility] 10/23/2023 3:38 PM CDT 10/26/2023 5:51 PM CDT us Briana CASTRO ECG ORDERABLES Final Result [facility] documented in this encounter Visit Diagnoses Diagnosis Hyponatremia- Primary Hyposmolality and/or hyponatremia Generalized weakness Urinary tract infection associated with catheterization of urinary tract, unspecified indwelling urinary catheter type, initial encounter ([facility]) Hyponatremia Hyposmolality and/or hyponatremia Hematuria, unspecified type Acute cystitis without hematuria Generalized weakness documented in this encounter Admitting Diagnoses Diagnosis Generalized weakness documented in this encounter Administered Medications Inactive Administered Medications - up to 3 most recent administrations Medication Order MAR Action Action Date Dose Rate Site acetaminophen (TYLENOL) 32 mg/mL oral liquid 650 mg 650 mg, feeding tube, Every 4 hours PRN, 1st line for pain, fever, Starting on 10/23/23 at 2144, Administer if patient receiving meds per tube., Indications: Fever, PainIndications:Fever,Pain acetaminophen (TYLENOL) suppository 650 mg 650 mg, rectal, Every 4 hours PRN, 1st line for pain, fever, Starting on 10/23/23 at 2144, Administer if patient cannot tolerate enteral route., Indications: Fever, PainIndications:Fever,Pain acetaminophen (TYLENOL) tablet 650 mg 650 mg, oral, Every 4 hours PRN, 1st line for pain, fever, Starting on 10/23/23 at 2144, Administer if patient can swallow tablets., Indications: Fever, PainIndications:Fever,Pain ALPRAZolam (XANAX) tablet 0.25 mg 0.25 mg, oral, 3 times daily PRN, anxiety, Starting on Tue10/24/23 at 0728 Given 10/25/2023 9:13 PM CDT 0.25 mg Given 10/24/2023 8:36 PM CDT 0.25 mg aspirin chewable tablet 81 mg 81 mg, oral, Daily, First dose on Tue10/24/23 at 1200, On hold since Tue10/24/2023 at 1456 until manually unheld Given 10/24/2023 11:53 AM CDT 81 mg atorvastatin (LIPITOR) tablet 10 mg 10 mg, oral, Daily, First dose on Tue10/24/23 at 0900 Given 10/27/2023 9:43 AM CDT 10 mg Given 10/26/2023 9:29 AM CDT 10 mg Given 10/25/2023 8:39 AM CDT 10 mg cefTRIAXone (ROCEPHIN) 1,000 mg/10 mL in sterile water (premix) 1,000 mg 1,000 mg, intravenous, at 120 mL/hr, Administer over 5 Minutes, Every 24 hours scheduled, First dose on Tue10/24/23 at 0600, Indications: Urinary Tract/Genitourinary InfectionIndications:Urinary Tract/Genitourinary Infection Given 10/24/2023 4:49 AM CDT 1,000 mg 1 20 mL/hr cetirizine (ZyrTEC) tablet 10 mg 10 mg, oral, Daily, First dose on Tue10/24/23 at 0900 Given 10/27/2023 9:43 AM CDT 10 mg Given 10/26/2023 9:26 AM CDT 10 mg Given 10/25/2023 8:38 AM CDT 10 mg clopidogreL (PLAVIX) tablet 75 mg 75 mg, oral, Every morning, First dose on Tue10/24/23 at 1200, On hold since Tue10/24/2023 at 1456 until manually unheld Given 10/24/2023 11:53 AM CDT 75 m g dextrose (D10W) 10% bolus 250 mL 250 mL, intravenous, at 1,000 mL/hr, Administer over 15 Minutes, Every 15 min PRN, blood glucose less than 70 mg/dL and UNABLE to swallow/take PO glucose/juice., Starting on Tue10/23/23 at 2144, After treatment for hypoglycemia, recheck BG followed by treatment every 15 minutes until the BG is greater than 100 mg/dL. Then check BG 1 hour post treatment. If BG is less than 100 mg/dL, repeat Q15 minute BG checks and treatment. Call MD for each episode of hypoglycemia., Indications: hypoglycemic disorderIndications:hypoglycemic disorder dextrose (GLUTOSE) 40 % gel 15 g 15 g, oral, Every 15 min PRN, low blood sugar, blood glucose less than 70 mg/dL, Starting on Tue10/23/23 at 2144, If patient is alert and able to eat/drink, give 15 gm glucose or one juice (4 fluid ounces) NOT ORANGE JUICE. After treatment for hypoglycemia, recheck BG followed by treatment every 15 minutes until the BG is greater than 100 mg/dL. Then check BG 1 hour post-treatment. If BG is less than 100 mg/dL, repeat Q15 minute BG checks and treatment. Call MD for each episode of hypoglycemia. BOOK PACKER STATES GLUTOSE-15 CONTAINS GLUCOSE 40% W/W (50% W/V), Indications: hypoglycemic disorderIndications:hypoglycemic disorder ferrous sulfate tablet 325 mg 325 mg (65 mg of elemental iron), oral, Daily with breakfast, First dose on Tue10/24/23 at 0800, On hold since Tue10/25/2023 at 0917 until manually unheld Given 10/25/2023 8:39 AM CDT 325 mg Given 10/24/2023 8:34 AM CDT 325 mg finasteride (PROSCAR) tablet 5 mg 5 mg, oral, Daily, First dose on Tue10/24/23 at 0900, Do not crush, break, or open. Given 10/27/2023 9:43 AM CDT 5 mg Given 10/26/2023 9:26 AM CDT 5 mg Given 10/25/2023 8:38 AM CDT 5 mg fluticasone propionate (FLONASE) 50 mcg/actuation nasal spray 1 spray 1 spray, each nostril, Daily, First dose on Tue10/24/23 at 0900 Given 10/27/2023 9:43 AM CDT 1 spray Given 10/26/2023 9:29 AM CDT 1 spray Given 10/25/2023 8:38 AM CDT 1 spray lactulose 0.67 gram/mL oral solution 20 g 20 g, oral, 2 times daily, First dose on Tue10/25/23 at 1315, For 3 doses, 3 doses, can stop once has BM Given 10/26/2023 9:26 AM CDT 20 g Given 10/25/2023 9:13 PM CDT 20 g magnesium oxide (MAG-OX) tablet 400 mg 400 mg, oral, 2 times daily, First dose on Tue10/24/23 at 1200, 1 tablet = Magnesium oxide 400 mg = 241.3 mg elemental magnesium, Indications: hypomagnesemiaIndications:hypomagnesemia Given 10/27/2023 9:43 AM CDT 400 mg Given 10/26/2023 8:42 PM CDT 400 mg Given 10/26/2023 9:25 AM CDT [address] (PROTONIX) extended release tablet 40 mg 40 mg, oral, Daily, First dose on Tue10/24/23 at 0900, Do not crush, chew, cut, dissolve, open or otherwise manipulate tablet/capsule., Indications: Symptomatic Gastroesophageal Reflux DiseaseIndications:Symptomatic Gastroesophageal Reflux Disease Given 10/27/2023 9:43 AM CDT 40 mg Given 10/26/2023 9:26 AM CDT 40 mg Given 10/25/2023 8:39 AM CDT 40 mg polyethylene glycol (MIRALAX) packet 17 g 17 g, oral, Daily PRN, constipation, Starting on Tue10/23/23 at 2144, Indications: constipationIndications:constipation Given 10/24/2023 8:34 AM CDT 17 g polyethylene glycol (MIRALAX) packet 17 g 17 g, oral, Daily, First dose (after last modification) on Tue10/25/23 at 1315, Indications: constipationIndications:constipation Given 10/26/2023 9:26 AM CDT 17 g senna-docusate (PERICOLACE) 8.6-50 mg per tablet 1 tablet 1 tablet, oral, 2 times daily, First dose on Tue10/23/23 at 2145, Indications: constipationIndications:constipation Given 10/25/2023 8:39 AM CDT 1 table t Given 10/24/2023 8:34 PM CDT 1 tablet Given 10/24/2023 8:34 AM CDT 1 tablet senna-docusate (PERICOLACE) 8.6-50 mg per tablet 2 tablet 2 tablet, oral, Nightly, First dose (after last modification) on Tue10/26/23 at 2100, Indications: constipationIndications:constipation Given 10/26/2023 8:42 PM CDT 2 table ts sertraline (ZOLOFT) tablet 50 mg 50 mg, oral, Daily, First dose on Tue10/24/23 at 0900 Given 10/25/2023 8:38 AM CDT 50 mg Given 10/24/2023 8:34 AM CDT 50 mg sertraline (ZOLOFT) tablet 50 mg 50 mg, oral, Nightly, First dose (after last modification) on Tue10/27/23 at 2100 sodium chloride 0.9% bolus 1,000 mL 1,000 mL, intravenous, Once, On Tue10/23/23 at 1913, For 1 dose New Bag 10/23/2023 7:30 PM CDT 1,000 mL 999 mL/hr Right Antecubital sodium chloride 0.9% infusion 75 mL/hr, intravenous, Continuous, Starting on Tue10/23/23 at 2145, For 12 hours New Bag 10/23/2023 10:49 PM CDT 75 mL/hr 75 mL/hr sodium chloride tablet 0.5 g 0.5 g, oral, Daily, First dose on Tue10/24/23 at 1200, Each 1 gram tablet contains 17 mEq of sodium. Given 10/24/2023 11:53 AM CDT 0.5 g sodium chloride tablet 1 g 1 g, oral, 2 times daily with meals (bkfst, dinner), First dose (after last modification) on Tue10/24/23 at 1800, Each 1 gram tablet contains 17 mEq of sodium. Given 10/27/2023 9:43 AM CDT 1 g Given 10/26/2023 5:10 PM CDT 1 g Given 10/26/2023 9:26 AM CDT 1 g sodium chloride tablet 1 g 1 g, oral, 3 times daily with meals, First dose (after last modification) on Tue10/27/23 at 1200, Each 1 gram tablet contains 17 mEq of sodium. Given 10/27/2023 12:51 PM CDT 1 g tolvaptan (SAMSCA) tablet 15 mg 15 mg, oral, Once, On Tue10/25/23 at 1730, For 1 dose Given 10/25/2023 5:39 PM CDT 15 mg documented in this encounter Discontinued Medications Medication Sig Discontinue Reason Start Date End Da te sodium chloride 1,000 mg tablet Take 0.5 tablets (0.5 g total) by mouth daily 10/18/2023 10/27/2023 sodium chloride 1,000 mg tablet Take 1 tablet (1 g total) by mouth 3 (three) times a day 10/27/2023 10/27/2023 niacin ER (NIASPAN) 500 mg CR capsule Take 1 capsule (500 mg total) by mouth nightly Stop Taking at Discharge 10/27/2023 aspirin 81 mg chewable tablet Take 1 tablet (81 mg total) by mouth daily Stop Taking at Discharge 10/27/2023 clopidogreL (PLAVIX) 75 mg tablet Take 1 tablet (75 mg total) by mouth every morning Stop Taking at Discharge 07/24/2023 10/27/2023 documented as of this encounter Historical Medications * This list may reflect changes made after this encounter. sodium chloride 1,000 mg tablet Take 0.5 tablets (0.5 g total) by mouth daily 10/18/2023 10/27/2023 sertraline (ZOLOFT) 50 mg tablet Take 1 tablet (50 mg total) by mouth daily 09/26/2023 12/21/2023 ALPRAZolam (XANAX) 0.25 mg tablet Take 1 tablet (0.25 mg total) by mouth 3 (three) times a day as needed for anxiety 12/21/2023 added in this encounter Active and Recently Administered Medications Times are shown in CDT. Scheduled Medication Order 10/25/2023 10/26/2023 10/27/2023 aspirin chewable tablet 81 mg 81 mg, oral, Daily, First dose on Tue10/24/23 at 1200, On hold since Tue10/24/2023 at 1456 until manually unheld 0900 (Hold - Provider: Taran Delatorre RN - Reason: See Provider Order) 0900 (Dose Auto Held - Provider: Félix Patiño MD) 0900 (Dose Auto Held - Provider: Félix Patiño MD)1838 (Unheld by Provider - Provider: Automatic Discharge Provider) atorvastatin (LIPITOR) tablet 10 mg 10 mg, oral, Daily, First dose on Tue10/24/23 at 0900 0839 (Given - Provider: Taran Delatorre RN) 0929 (Given - Provider: Elena Izquierdo RN) 0943 (Given - Provider: Elena Izquierdo RN) cetirizine (ZyrTEC) tablet 10 mg 10 mg, oral, Daily, First dose on Tue10/24/23 at 0900 0838 (Given - Provider: Taran Delatorre RN) 09 (Given - Provider: Elena Izquierdo RN) 0943 (Given - Provider: Elena Izquierdo RN) ferrous sulfate tablet 325 mg 325 mg (65 mg of elemental iron), oral, Daily with breakfast, First dose on Tue10/24/23 at 0800, On hold since Tue10/25/2023 at 0917 until manually unheld 0839 (Given - Provider: Taran Delatorre RN)0917 (Held by Provider - Provider: Jamshid Kennedy MD - Reason: Change in Patient Status) 0800 (Dose Auto Held - Provider: Jamshid Kennedy MD) 0800 (Dose Auto Held - Provider: Jamshid Kennedy MD)1838 (Unheld by Provider - Provider: Automatic Discharge Provider) finasteride (PROSCAR) tablet 5 mg 5 mg, oral, Daily, First dose on Tue10/24/23 at 0900, Do not crush, break, or open. 0838 (Given - Provider: Taran Delatorre RN) 0926 (Given - Provider: Elena Izquierdo RN) 0943 (Given - Provider: lEena Izquierdo RN) fluticasone propionate (FLONASE) 50 mcg/actuation nasal spray 1 spray 1 spray, each nostril, Daily, First dose on Tue10/24/23 at 0900 0838 (Given - Provider: Taran Delatorre RN) 0929 (Given - Provider: Elena Izquierdo RN) 0943 (Given - Provider: Elena Izquierdo RN) insulin lispro (HumaLOG, ADMELOG) 100 unit/mL injection 0-4 Units 0-4 Units, subcutaneous, Nightly, First dose on Tue10/23/23 at 2145, Blood glucose mg/dL: 199 or less: No insulin 200-249: add 1 unit 250-299: add 2 units 300-349: add 3 units and notify physician for adjustment of insulin orders. 350-399: add 4 units and notify physician for adjustment of insulin orders. Over 400: Notify physician for adjustment of insulin orders. Do NOT hold for NPO Status, Indications: Diabetes Mellitus 2113 (Not Given - Provider: Karla Mccabe RN - Reason: Order parameters not met) 2041 (Not Given - Provider: Aliyah Alas RN - Reason: Order parameters not met) insulin lispro (HumaLOG, ADMELOG) 100 unit/mL injection 0-5 Units 0-5 Units, subcutaneous, 3 times daily with meals, First dose on Tue10/24/23 at 0800, Blood glucose mg/dL: 149 or less: No insulin 150-199: add 1 unit 200-249: add 2 units 250-299: add 3 units 300-349: add 4 units and notify physician for adjustment of insulin orders. 350-399: add 5 units and notify physician for adjustment of insulin orders. Over 400: Notify physician for adjustment of insulin orders. Do NOT hold for NPO Status, Indications: Diabetes Mellitus 0921 (Not Given - Provider: Taran Delatorre RN - Reason: Order parameters not met)1219 (Not Given - Provider: Taran Delatorre RN - Reason: Order parameters not met)1716 (Not Given - Provider: Taran Delatorre RN - Reason: Order parameters not met) 0932 (Not Given - Provider: Elena Izquierdo RN - Reason: Order parameters not met)1254 (Not Given - Provider: Elena Izquierdo RN - Reason: Order parameters not met)1843 (Not Given - Provider: Elena Izquierdo RN - Reason: Order parameters not met) 0944 (Not Given - Provider: Elena Izquierdo RN - Reason: Order parameters not met)1232 (Not Given - Provider: Elena Izquierdo RN - Reason: Order parameters not met) lactulose 0.67 gram/mL oral solution 20 g () 20 g, oral, 2 times daily, First dose on Tue10/25/23 at 1315, For 3 doses, 3 doses, can stop once has BM 1400 (Not Given - Provider: Taran Delatorre RN - Reason: Patient/family refused)2113 (Given - Provider: Karla Mccabe RN) 0926 (Given - Provider: Elena Izquierdo RN) magnesium oxide (MAG-OX) tablet 400 mg 400 mg, oral, 2 times daily, First dose on Tue10/24/23 at 1200, 1 tablet = Magnesium oxide 400 mg = 241.3 mg elemental magnesium, Indications: hypomagnesemia 0838 (Given - Provider: Taran Delatorre RN)2112 (Given - Provider: Karla Mccabe RN) 09 (Given - Provider: Elena Izquierdo RN)2041 (Given - Provider: Aliyah Alas, GIACOMO) 0943 (Given - Provider: Elena Izquierdo RN) pantoprazole DR (PROTONIX) extended release tablet 40 mg 40 mg, oral, Daily, First dose on Tue10/24/23 at 0900, Do not crush, chew, cut, dissolve, open or otherwise manipulate tablet/capsule., Indications: Symptomatic Gastroesophageal Reflux Disease 0839 (Given - Provider: Taran Delatorre RN) 09 (Given - Provider: Elena Izquierdo RN) 0943 (Given - Provider: Elena Izquierdo RN) polyethylene glycol (MIRALAX) packet 17 g 17 g, oral, Daily, First dose (after last modification) on Tue10/25/23 at 1315, Indications: constipation 1400 (Not Given - Provider: Taran Delatorre RN - Reason: Patient/family refused) 09 (Given - Provider: Elena Izquierdo RN) 0944 (Not Given - Provider: Elena Izquierdo RN - Reason: Patient/family refused) senna-docusate (PERICOLACE) 8.6-50 mg per tablet 1 tablet (CANCELED) 1 tablet, oral, 2 times daily, First dose on Tue10/23/23 at 2145, Indications: constipation 0839 (Given - Provider: Taran Delatorre RN) senna-docusate (PERICOLACE) 8.6-50 mg per tablet 2 tablet 2 tablet, oral, Nightly, First dose (after last modification) on Tue10/26/23 at 2100, Indications: constipation 2041 (Given - Provider: Aliyah Alas, GIACOMO) sertraline (ZOLOFT) tablet 50 mg (CANCELED) 50 mg, oral, Daily, First dose on Tue10/24/23 at 0900 0838 (Given - Provider: Taran Delatorre RN) 0926 (Not Given - Provider: Elena Izquierdo RN - Reason: Other) sertraline (ZOLOFT) tablet 50 mg 50 mg, oral, Nightly, First dose (after last modification) on Tue10/27/23 at 2100 sodium chloride tablet 1 g (CANCELED) 1 g, oral, 2 times daily with meals (bkfst, dinner), First dose (after last modification) on Tue10/24/23 at 1800, Each 1 gram tablet contains 17 mEq of sodium. 0838 (Given - Provider: Taran Delatorre RN)1739 (Given - Provider: Taran Delatorre RN) 0926 (Given - Provider: Elena Izquierdo RN)1710 (Given - Provider: Elena Izquierdo RN) 0943 (Given - Provider: Elena Izquierdo RN) sodium chloride tablet 1 g 1 g, oral, 3 times daily with meals, First dose (after last modification) on Tue10/27/23 at 1200, Each 1 gram tablet contains 17 mEq of sodium. 1251 (Given - Provider: Elena Izquierdo RN) tolvaptan (SAMSCA) tablet 15 mg (COMPLETED) 15 mg, oral, Once, On Tue10/25/23 at 1730, For 1 dose 1739 (Given - Provider: Taran Delatorre RN) PRN Medication Order 10/25/2023 10/26/2023 10/27/2023 acetaminophen (TYLENOL) 32 mg/mL oral liquid 650 mg(Linked Group 1) 650 mg, feeding tube, Every 4 hours PRN, 1st line for pain, fever, Starting on 10/23/23 at 2144, Administer if patient receiving meds per tube., Indications: Fever, Pain acetaminophen (TYLENOL) suppository 650 mg(Linked Group 1) 650 mg, rectal, Every 4 hours PRN, 1st line for pain, fever, Starting on 10/23/23 at 2144, Administer if patient cannot tolerate enteral route., Indications: Fever, Pain acetaminophen (TYLENOL) tablet 650 mg(Linked Group 1) 650 mg, oral, Every 4 hours PRN, 1st line for pain, fever, Starting on 10/23/23 at 2144, Administer if patient can swallow tablets., Indications: Fever, Pain ALPRAZolam (XANAX) tablet 0.25 mg 0.25 mg, oral, 3 times daily PRN, anxiety, Starting on Tue10/24/23 at 0728 2113 (Given - Provider: Karla Mccabe RN) dextrose (D10W) 10% bolus 250 mL(Linked Group 2) 250 mL, intravenous, at 1,000 mL/hr, Administer over 15 Minutes, Every 15 min PRN, blood glucose less than 70 mg/dL and UNABLE to swallow/take PO glucose/juice., Starting on Tue10/23/23 at 2144, After treatment for hypoglycemia, recheck BG followed by treatment every 15 minutes until the BG is greater than 100 mg/dL. Then check BG 1 hour post treatment. If BG is less than 100 mg/dL, repeat Q15 minute BG checks and treatment. Call MD for each episode of hypoglycemia., Indications: hypoglycemic disorder dextrose (GLUTOSE) 40 % gel 15 g(Linked Group 2) 15 g, oral, Every 15 min PRN, low blood sugar, blood glucose less than 70 mg/dL, Starting on Tue10/23/23 at 2144, If patient is alert and able to eat/drink, give 15 gm glucose or one juice (4 fluid ounces) NOT ORANGE JUICE. After treatment for hypoglycemia, recheck BG followed by treatment every 15 minutes until the BG is greater than 100 mg/dL. Then check BG 1 hour post-treatment. If BG is less than 100 mg/dL, repeat Q15 minute BG checks and treatment. Call MD for each episode of hypoglycemia. BOOK PACKER STATES GLUTOSE-15 CONTAINS GLUCOSE 40% W/W (50% W/V), Indications: hypoglycemic disorder glucagon injection 1 mg 1 mg, intramuscular, Every 30 min PRN, low blood sugar, blood glucose less than 70 mg/dL AND no IV access AND unable to take PO glucose/juice., Starting on Tue10/23/23 at 2144, After Glucagon is administered, position patient on side if possible to avoid aspiration. Obtain IV access. Follow glucagon treatment with glucose treatment or IV dextrose. After treatment for hypoglycemia, recheck BG followed by treatment every 15 minutes until the BG is greater than 100 mg/dL. Then check BG 1 hour post treatment. If BG is less than 100 mg/dL, repeat Q15 minute BG checks and treatment. Call MD for each episode of hypoglycemia. Reconstitute 1 mg vial with 1 mL SWFI. Use immediately following reconstitution. ramelteon (ROZEREM) tablet 8 mg 8 mg, oral, Nightly PRN, sleep, Starting on 10/23/23 at 2144, Indications: Sleep-Onset Insomnia Linked Groups Order Group 1: acetaminophen (TYLENOL) tablet 650 mgJump to med 650 mg, oral, Every 4 hours PRN, 1st line for pain, fever, Starting on 10/23/23 at 2144, Administer if patient can swallow tablets., Indications: Fever, Pain Or acetaminophen (TYLENOL) 32 mg/mL oral liquid 650 mgJump to med 650 mg, feeding tube, Every 4 hours PRN, 1st line for pain, fever, Starting on 10/23/23 at 2144, Administer if patient receiving meds per tube., Indications: Fever, Pain Or acetaminophen (TYLENOL) suppository 650 mgJump to med 650 mg, rectal, Every 4 hours PRN, 1st line for pain, fever, Starting on 10/23/23 at 2144, Administer if patient cannot tolerate enteral route., Indications: Fever, Pain Group 2: dextrose (GLUTOSE) 40 % gel 15 gJump to med 15 g, oral, Every 15 min PRN, low blood sugar, blood glucose less than 70 mg/dL, Starting on 10/23/23 at 2144, If patient is alert and able to eat/drink, give 15 gm glucose or one juice (4 fluid ounces) NOT ORANGE JUICE. After treatment for hypoglycemia, recheck BG followed by treatment every 15 minutes until the BG is greater than 100 mg/dL. Then check BG 1 hour post-treatment. If BG is less than 100 mg/dL, repeat Q15 minute BG checks and treatment. Call MD for each episode of hypoglycemia. BOOK PACKER STATES GLUTOSE-15 CONTAINS GLUCOSE 40% W/W (50% W/V), Indications: hypoglycemic disorder Or dextrose (D10W) 10% bolus 250 mLJump to med 250 mL, intravenous, at 1,000 mL/hr, Administer over 15 Minutes, Every 15 min PRN, blood glucose less than 70 mg/dL and UNABLE to swallow/take PO glucose/juice., Starting on 10/23/23 at 2144, After treatment for hypoglycemia, recheck BG followed by treatment every 15 minutes until the BG is greater than 100 mg/dL. Then check BG 1 hour post treatment. If BG is less than 100 mg/dL, repeat Q15 minute BG checks and treatment. Call MD for each episode of hypoglycemia., Indications: hypoglycemic disorder documented in this encounter Orders Medications Ordered That Andrei ht Not Have Been Administered Count Last Ordered Date First Ordered Date sertraline (ZOLOFT) tablet 50 mg 1 10/26/19 24 sodium chloride 0.9% 0.9 % i rrigation - ADS Override Pull 1 10/26/2023 acetaminophen (TYLENOL) 32 m g/mL oral liquid 650 mg 1 10/23/2023 acetaminophen (TYLENOL) suppository 650 mg 1 10/23/2023 acetaminophen (TYLENOL) tablet 650 mg 1 10/2023 dextrose (D10W) 10% bolus 250 mL 1 10/23/19 24 dextrose (GLUTOSE) 40 % gel 15 g 1 10/23/19 24 glucagon injection 1 mg 1 10/23/2023 insulin lispro (HumaLOG, ADM ELOG) 100 unit/mL injection 0-4 Units 1 10/23/2023 insulin lispro (HumaLOG, ADM ELOG) 100 unit/mL injection 0-5 Units 1 10/23/2023 ramelteon (ROZEREM) tablet 8 mg 1 Lab Orders Without Results Count Last Ordered D ate First Ordered Date POCT GLUCOSE DEVICE 14 10/27/2023 10/24/19 24 Nursing Count Last Ordered Date First Orde red Date DISCHARGE CALL PROVIDER 8 10/27/2023 DISCHARGE INSTRUCTIONS 2 10/27/2023 ACTIVITY 1 10/23/2023 NOTIFY PROVIDER (SPECIFY) 5 10/23/[address] SEQUENTIAL COMPRESSION DEVICE 1 10/22 STRICT INTAKE AND OUTPUT 1 10/23/2023 WEIGH PATIENT 1 10/23/2023 Consult Count Last Ordered Date First Orde red Date IP CONSULT TO NEPHROLOGY 1 10/24/2023 IP CONSULT TO SOCIAL WORK 1 10/23/2023 Admission Count Last Ordered Date First Orde red Date ADMIT TO INPATIENT 1 10/23/2023 Discharge Count Last Ordered Date First Orde red Date DISCHARGE PATIENT 1 10/27/2023 CORE MEASURES Count Last Ordered Date First Ord ered Date REASON FOR NO VTE PROPHYLAXI S - HOSPITAL ADMISSION - MEDICATIONS 1 10/23/2023 documented in this encounter Care Teams Enterprise Engineer Relationship Specialty Start Date End Date Meliton Washburn MD PCP - General Family Medicine 04/01/22 documented as of this encounter
--- OUTSIDE RECORDS SUMMARY | 2024-06-06 22:18 | XMS_ITS | Encounter Summary ---
Author Organization [facility] Address [address] [place] [address] Care Team Providers Care Group Sales Representative Name Role Phone Meliton Washburn MD Primary Care Provider [phone] Reason for Visit * Reason Comments Follow-up 6 mo f/u Hypertension Irregular Heart Beat Encounter Details Date Type Department Care Team ([facility] st Contact Info) Description 10/04/2022 10:00 AM CDT Office Visit [facility] Cardiology [address] [place] [address] Karen Benjamin MD [address] [place], [place] [id number] Aneurysm of ascending aorta without rupture (HCC) (Primary Dx); Hyperlipidemia associated with type 2 diabetes mellitus (HCC); Hypertension associated with diabetes (HCC); Nonrheumatic aortic valve stenosis; Other chest pain Social History Tobacco Use Types Packs/Day Years Used Date Smoking Tobacco: Former Cigarettes 0.5 50 S tarted: 1974 Smokeless Tobacco: Never Sex and Gender Information Value Date Recorded Sex Assigned at Not on file 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 Gender Identity Not on file Sexual Orientation Not on file documented as of this encounter Last Filed Vital Signs Vital Sign Reading Time Taken Comments Blood Pressure 120/62 10/04/2022 10:02 AM CDT Pulse 68 10/04/2022 10:02 AM CDT Temperature - - Respiratory Rate - - Oxygen Saturation 98% 10/04/2022 10:02 AM CDT Inhaled Oxygen Concentration - - Weight 88 kg (193 lb 14.4 oz) 10/04/2022 10:02 A M CDT Height 182.9 cm (6') 10/04/2022 10:02 AM CDT Body Mass Index 26.3 10/04/2022 10:02 AM CDT documented in this encounter Progress Notes * Karen Benjamin MD - 10/04/2022 10:00 AM CDT [facility] CHIEF COMPLAINT Chief Complaint Patient presents with ??? Follow-up 6 mo f/u ??? Hypertension ??? Irregular Heart Beat HPI Meliton Delacruz is a 82 y.o. male with past medical history of [...] at age 76. 04/01/2022 hospital follow-up with DEAD MAIL CHECKER: He was hospitalized at [place] 02/12-02/16 for complaint of chest pain and [...] to have Ahumada catheter for urine retention. MEDICAL HISTORY Past Medical History: Diagnosis Date ??? Arthritis ??? Enlarged prostate ??? GERD (gastroesophageal reflux disease) ??? Heart murmur ??? High cholesterol ??? HTN (hypertension) ??? Type 2 diabetes mellitus (HCC) Past Surgical History: Procedure Laterality Date ??? ANKLE FRACTURE SURGERY Right x 2 ??? CHOLECYSTECTOMY Social History Tobacco Use ??? Smoking status: Former Smoker Packs/day: 0.50 Years: 24.00 Pack years: 12.00 Types: Cigarettes Start date: 1974 ??? Smokeless tobacco: Never Used Vaping Use ??? Vaping Use: Never used Family History Problem Relation Age of Onset ??? Cancer Mother ??? Stroke Father ??? Heart attack Father ??? Heart disease Other ??? Stroke Other MEDICATIONS HOME MEDICATIONS : amLODIPine-benazepriL (LOTREL 5-10) 5-10 mg per capsule aspirin 81 mg chewable tablet atorvastatin (LIPITOR) 10 mg tablet cetirizine (ZyrTEC) 10 mg tablet ferrous sulfate 325 mg (65 mg of elemental iron) tablet finasteride (PROSCAR) 5 mg tablet fluticasone propionate (FLONASE) 50 mcg/actuation nasal spray hydroCHLOROthiazide (HYDRODIURIL) 25 mg tablet metFORMIN (GLUCOPHAGE) 500 mg tablet dicfeopwimew-hmvptwmv-vybawh (Multivitamin 50 Plus) tablet niacin ER (NIASPAN) 500 mg CR capsule omeprazole (PriLOSEC) 20 mg capsule bethanechol (URECHOLINE) 25 mg tablet ALLERGIES Allergies Allergen Reactions ??? Sulfa (Sulfonamide Antibiotics) Unknown REVIEW OF SYSTEMS Review of Systems Constitutional: Negative for chills, fever and malaise/fatigue. HENT: Negative for congestion and sore throat. Eyes: Negative for blurred vision and double vision. Cardiovascular: Positive for chest pain. Negative for claudication, dyspnea on exertion, leg swelling, near-syncope, [...] allergies and hives. PHYSICAL EXAM Vitals BP 120/62 (BP Location: Right arm, Patient Position: Sitting) Pulse 68 Ht 182.9 cm (6') Wt 88 kg (193 lb 14.4 oz) SpO2 98% BMI 26.30 kg/m?? Body mass index is 26.3 kg/m??. Physical Exam Constitutional: General: He is [...] Mood normal. LABS AND OTHER DIAGNOSTIC TESTS No results found for: WBC, HGB, HCT, MCV, PLT Chemistry No results found for: SODIUM, POTASSIUM, CHLORIDE, CO2, BUNSER, CREATININE, GLUCOSE No results found for: CALCIUM, ALKPHOS, AST, ALT, BILITOT Lexiscan stress test September 21, 2021. Global left ventricular function is normal. Left ventricular ejection fraction is 58 %. Myocardial perfusion imaging is normal. There is an inferior/inferolateral defect which likely correlates to gut attenuation. Negative EKG portion of stress test. EKG4/04/2022-sinus rhythm, T-wave abnormalities involving V2 to V6, [...] Diagnoses and all orders for this visit: Aneurysm of ascending aorta without rupture (HCC) (Primary) Hyperlipidemia associated with type 2 diabetes mellitus (HCC) Hypertension associated with diabetes (HCC) Nonrheumatic aortic valve stenosis Other chest pain PLAN/RECOMMENDATIONS In regards to chest pain, he underwent Lexiscan stress test that appeared to be unremarkable for ischemia. No recurrence of chest pain. At this time will continue to observe and monitor patient. -in regards to hypertension, blood pressure is well controlled. Blood pressure today 120/62 . Continue HCTZ, amlodipine, benazepril. In the past he did have hyponatremia which recovered. I informed the patient that hyponatremia is a side effect from hydrochlorothiazide and if it keeps happening will change the HCTZ to spironolactone. -in regards to hyperlipidemia, continue statin. -in regards to ascending aorta aneurysm measuring 4.[address] scan July 2021, will monitor. It ismild dilatation. Apparently patient had repeat CT scan at [facility] February 11, 2022 and reported stable ectasia of the ascending aorta measuring 4.4 cm. -in regards to aortic stenosis appears to be mild with aortic valve area 1.7 cm2 and mean gradient 8 mm Hg. Follow up in the office in in 6 months. Karen Benjamin MD documented in this encounter Plan of Treatment Not on file documented as of this encounter Visit Diagnoses Diagnosis Aneurysm of ascending aorta without rupture (HCC)- Primary Hyperlipidemia associated with type 2 diabetes mellitus (HCC) Hypertension associated with diabetes (HCC) Unspecified essential hypertension Nonrheumatic aortic valve stenosis Other chest pain documented in this encounter Discontinued Medications Medication Sig Discontinue Reason Start Date End Da te bethanechol (URECHOLINE) 25 mg tabletIndications:Urinary Retention Take 25 mg by mouth 3 (three) times a day Therapy completed 10/04/2022 documented as of this encounter Care Teams Group Sales Representative Relationship Specialty Start Date End Date Meliton Washbrun MD PCP - General Family Medicine 04/01/22 documented as of this encounter
--- OUTSIDE RECORDS SUMMARY | 2024-06-06 22:18 | XMS_ITS | Encounter Summary ---
Author Organization [facility] Address [address] [place] [id number] Care Team Providers Care Proced Tech Name Role Phone Meliton Washburn MD Primary Care Provider [phone] Reason for Visit * Reason Comments Aortic Aneurysm Hypertension Hyperlipidemia Annual f/u Encounter Details Date Type Department Care Team (Late st Contact Info) Description 04/08/2023 8:45 AM CDT Office Visit [facility] Cardiology [address] [place] [address] Karen Benjamin MD [address] [address] Aneurysm of ascending aorta without rupture (HCC) (Primary Dx); Hyperlipidemia associated with type 2 diabetes mellitus (HCC); Hypertension associated with diabetes (HCC); Nonrheumatic aortic valve stenosis; Other chest pain Social History Tobacco Use Types Packs/Day Years Used Date Smoking Tobacco: Former Cigarettes 0.5 50 S tarted: 1975 Smokeless Tobacco: Never Sex and Gender Information Value Date Recorded Sex Assigned at Not on file 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 Gender Identity Not on file Sexual Orientation Not on file documented as of this encounter Last Filed Vital Signs Vital Sign Reading Time Taken Comments Blood Pressure 114/60 04/08/2023 8:35 AM CDT Pulse 65 04/08/2023 8:35 AM CDT Temperature - - Respiratory Rate - - Oxygen Saturation 98% 04/08/2023 8:35 AM CDT Inhaled Oxygen Concentration - - Weight 83 kg (183 lb) 04/08/2023 8:35 AM CDT Height 182.9 cm (6') 04/08/2023 8:35 AM CDT Body Mass Index 24.82 04/08/2023 8:35 AM CDT documented in this encounter Progress Notes * Karen Benjamin MD - 04/08/2023 8:45 AM CDT [facility] CHIEF COMPLAINT Chief Complaint Patient presents with ??? Aortic Aneurysm ??? Hypertension ??? Hyperlipidemia Annual f/u HPI Meliton Delacruz is a 83 y.o. male with past medical history of [...] at age 76. 04/01/2022 hospital follow-up with ENTERTAINMENT REPORTER: He was hospitalized at [place] 02/12-02/16 for complaint of chest pain and [...] off HCTZ due to low sodium levels. MEDICAL HISTORY Past Medical History: Diagnosis Date [...] nasal spray metFORMIN (GLUCOPHAGE) 500 mg tablet dolifpojlzjb-bcbkaiie-ozkugy (Multivitamin 50 Plus) tablet niacin ER (NIASPAN) 500 mg CR capsule omeprazole (PriLOSEC) 20 mg capsule hydroCHLOROthiazide (HYDRODIURIL) 25 mg tablet ALLERGIES Allergies Allergen Reactions [...] allergies and hives. PHYSICAL EXAM Vitals BP 114/60 (BP Location: Right arm, Patient Position: Sitting) Pulse 65 Ht 182.9 cm (6') Wt 83 kg (183 lb) SpO2 98% BMI 24.82 kg/m?? Body mass index is 24.82 kg/m??. Physical Exam Constitutional: General: He is [...] OTHER DIAGNOSTIC TESTS No results found for: WBC , HGB , HCT , MCV , PLT Chemistry No results found for: SODIUM , POTASSIUM , CHLORIDE , CO2 , BUNSER , CREATININE , GLUCOSE No results found for: CALCIUM , ALKPHOS , AST , ALT , BILITOT Lexiscan stress test September 21, 2021. [...] of ascending aorta without rupture (HCC) (Primary) - CTA Chest W Contrast; Future Hyperlipidemia associated with type 2 diabetes mellitus [...] pressure is well controlled. Blood pressure today 114/60. Continue amlodipine, benazepril. HCTZ was discontinued due to low sodium. -in regards to hyperlipidemia, continue statin. -in regards to ascending aorta aneurysm measuring 4.[address] scan July 2021, will monitor. It ismild dilatation. Apparently patient had repeat CT scan at [facility] February 11, 2022 and reported stable ectasia of the ascending aorta measuring 4.[address] scan after a year from now with follow-up visit. -in regards to aortic stenosis appears to [...] Discontinue Reason Start Date End Da te hydroCHLOROthiazide (HYDRODIURIL) 25 mg tablet Take 1 tablet (25 mg total) by mouth every morning Therapy completed 08/10/2021 04/08/2023 documented as of this encounter Care Teams Proced Tech Relationship Specialty Start Date End Date Meliton Washburn MD PCP - General Family Medicine 04/01/22 documented as of this encounter
--- OUTSIDE RECORDS SUMMARY | 2024-06-06 22:18 | XMS_ITS | Encounter Summary ---
Author Organization [facility] Address [address] [place] [address] Care Team Providers Care Distribution Manager Name Role Phone Meliton Washburn MD Primary Care Provider [phone] Reason for Referral * Cardiology (Routine) - Closed Specialty Diagnoses / Procedures Referred By Contac t Referred To Contact Diagnoses TIA (transient ischemic attack) Procedures Event Monitor Kay Husain NP [address] [address] Phone: tel: fax: [facility] Referral ID Status Reason Start Date Expiration Date Visits Re quested Visits Authorized [id number] Closed 07/26/2023 08/24/2024 1 1 D INVESTIGATOR Reason for Visit * Reason Comments Hospital Follow Up Encounter Details Date Type Department Care Team ([facility] st Contact Info) Description 07/26/2023 9:00 AM FIELD INVESTIGATOR Office Visit [facility] Cardiology [address] [place] [phone] Kay Husain NP [address] [address] TIA (transient ischemic attack) (Primary Dx); Nonrheumatic aortic valve stenosis; Aneurysm of ascending aorta without rupture (HCC); Hospital discharge follow-up Social History Tobacco Use Types Packs/Day Years Used Date Smoking Tobacco: Former Cigarettes 0.5 50 S tarted: 1975 Smokeless Tobacco: Never Tobacco Cessation:Counseling Given: Not Answered Personal Safety Answer Date Recorded Getting School Help Needed Not on file 06/24 Sex and Gender Information Value Date Recorded Sex Assigned at Not on file Legal Sex Male 3:39 PM FIELD INVESTIGATOR Gender Identity Not on file Sexual Orientation Not on file documented as of this encounter Last Filed Vital Signs Vital Sign Reading Time Taken Comments Blood Pressure 148/70 07/26/2023 9:01 AM FIELD INVESTIGATOR Pulse 62 07/26/2023 9:01 AM FIELD INVESTIGATOR Temperature - - Respiratory Rate - - Oxygen Saturation 97% 07/26/2023 9:01 AM FIELD INVESTIGATOR Inhaled Oxygen Concentration - - Weight 84.4 kg (186 lb) 07/26/2023 9:01 AM FIELD INVESTIGATOR Height 182.9 cm (6') 07/26/2023 9:01 AM FIELD INVESTIGATOR Body Mass Index 25.23 07/26/2023 9:01 AM FIELD INVESTIGATOR documented in this encounter Progress Notes * Kay Husain, ABRIL - 07/26/2023 9:00 AM CST Images from the original note were not included. [facility] Cardiology [address] [place] [address] Date of Visit: 07/26/2023 Patient ID: Meliton Delacruz 1940 Chief Complaint Patient presents with Hospital Follow Up Meliton Delacruz is a 83 y.o. male who is an established patient of Dr. Benjamin with a history of hypertension and mild aortic stenosis returning to the office for hospital follow up after he was treated for a TIA. History of Present Illness: Meliton Delacruz is a 83 y.o. male with past medical history of hypertension, diabetes, hyperlipidemia, GERD. 09/28/[address] consultation [address] Dr[address] Benjamin: he woke up at 1 night feeling [...] cups each day denies tea. He drinks 1 soda per day which is Pepsi. He describes that his dad had myocardial infarction at age 72 and his sister had CABG at age 76. 04/01/2022 hospital follow-up with CIPHER EXPERT: He was hospitalized at [facility] 02/12-02/16 for complaint of chest pain and [...] epigastric pain and chest pain. 12-lead ECG showed sinus rhythm, normal axis and normal [...] off HCTZ due to low sodium levels. 07/26/2023 hospital follow-up with CIPHER EXPERT: he had a few minutes of expressive aphasia so he was hospitalized at [facility] 07/21/23-07/23/23 for evaluation, and it was unremarkable (discharge summary reviewed,new echo performed). He was directed to take clopidogrel for 3 weeks along with his aspirin daily. He was advised to have outpatient monitor placed. Today he states he has had no recurrence of the expressive aphasia. Records that I personally reviewed on the day of this visit include: (the interpretation is outlined in the HPI above) 04/08/[address] Benjamin, 07/21/2023 [facility] echo report and discharge summary. I have also reviewed: allergies, current medications, past family history, past medical history, past social history, past surgical history and problem list Medical History: Past Medical History: Diagnosis Date Arthritis Enlarged prostate GERD (gastroesophageal reflux disease) Heart murmur High cholesterol HTN (hypertension) Type 2 diabetes mellitus (HCC) Past Surgical History: Procedure Laterality Date ANKLE FRACTURE SURGERY Right x 2 CHOLECYSTECTOMY Social History Tobacco Use Smoking Status Former Packs/day: 0.50 Years: 24.00 Additional pack years: 0.00 Total pack years: 12.00 Types: Cigarettes Start date: 1974 Smokeless Tobacco Never Social History Tobacco Use Smoking status: Former Packs/day: 0.50 Years: 24.00 Additional pack years: 0.00 Total pack years: 12.00 Types: Cigarettes Start date: 1974 Smokeless tobacco: Never Substance and Sexual Activity Drug use: None Sexual activity: None Alcohol Use: Not on file Family History Problem Relation Age of Onset Cancer Mother Stroke Father Heart attack Father Heart disease Other Stroke Other Review of Systems Constitutional: Negative for malaise/fatigue, weight gain and weight loss. Cardiovascular: Negative for chest pain, claudication, dyspnea on exertion, leg swelling, near-syncope, orthopnea, palpitations, paroxysmal nocturnal dyspnea and syncope. Respiratory: Negative for cough, shortness of breath and sleep disturbances due to breathing. Hematologic/Lymphatic: Negative for bleeding problem. Does not bruise/bleed easily. Neurological: Negative for dizziness and light-headedness. Vital Signs: BP 148/70 (BP Location: Left arm, Patient Position: Sitting) Pulse 62 Ht 182.9 cm (6') Wt 84.4 kg (186 lb) SpO2 97% BMI 25.23 kg/m?? Physical Exam Constitutional: General: He is not in acute distress. Appearance: He is well-developed. HENT: Head: Normocephalic and atraumatic. Eyes: General: No scleral icterus. Conjunctiva/sclera: Conjunctivae normal. Neck: Vascular: No JVD. Trachea: No tracheal deviation. Cardiovascular: Rate and Rhythm: Normal rate and regular rhythm. Heart sounds: Murmur heard. Pulmonary: Effort: Pulmonary effort is normal. No respiratory distress. Breath sounds: Normal breath sounds. Skin: General: Skin is warm and dry. Neurological: Mental Status: He is alert and oriented to person, place, and time. Psychiatric: Mood and Affect: Mood normal. Behavior: Behavior normal. Allergies Allergen Reactions Sulfa (Sulfonamide Antibiotics) Unknown Current Outpatient Medications: amLODIPine-benazepriL (LOTREL 5-10) 5-10 mg per capsule, , Disp: , Rfl: aspirin 81 mg chewable tablet, Take 1 tablet (81 mg total) by mouth daily, Disp: , Rfl: atorvastatin (LIPITOR) 10 mg tablet, , Disp: , Rfl: cetirizine (ZyrTEC) 10 mg tablet, Take 1 tablet (10 mg total) by mouth daily, Disp: , Rfl: clopidogreL (PLAVIX) 75 mg tablet, Take 1 tablet (75 mg total) by mouth every morning, Disp: , Rfl: ferrous sulfate 325 mg (65 mg of elemental iron) tablet, Take 1 tablet (325 mg total) by mouth daily with breakfast, Disp: , Rfl: finasteride (PROSCAR) 5 mg tablet, Take 1 tablet (5 mg total) by mouth daily, Disp: , Rfl: fluticasone propionate (FLONASE) 50 mcg/actuation nasal spray, Administer 1 spray into each nostrildaily, Disp: , Rfl: metFORMIN (GLUCOPHAGE) 500 mg tablet, Take 1 tablet (500 mg total) by mouth 2 (two) times a day, Disp: , Rfl: mzcozwlcxsig-ztfsbmkh-xjbiir (Multivitamin 50 Plus) tablet, Take by mouth daily, Disp: , Rfl: omeprazole (PriLOSEC) 20 mg capsule, Take 1 capsule (20 mg total) by mouth daily, Disp: , Rfl: niacin ER (NIASPAN) 500 mg CR capsule, Take 1 capsule (500 mg total) by mouth nightly (Patient not taking: Reported on 07/26/2023), Disp: , Rfl: No results found for: POTASSIUM , BUNSER , CREATININE , CHOL , TRIG , LDL , LDLCALC , HDL No results found for: WBC , HGB , HCT , MCV , PLT No results found for this or any previous visit (from the past 4 hour(s)). Lexiscan stress test September 21, 2021. Global [...] is mildly dilated. Ascending Aorta 4.0 cm Echo July 2023 ([facility]) Mild concentric LVH with normal LV systolic function, EF 55-60%, grade 1 diastolic dysfunction, mild LAE, mild aortic valve sclerosis, peak gradient 18 mmHg, mean gradient 9 mmHg, peak velocity 215 cm/s, CALEB 1.8 cm2. CTA chest August 05, 2021 no pulmonary embolus. Ectasia of the ascending aorta measuring 4.[address] 02/11/2022 from [facility] ???stable ectasia of ascending aorta measuring 4.4 cm Assessment: Diagnoses and all orders for this visit: TIA (transient ischemic attack) (Primary) - Event Monitor; Future Nonrheumatic aortic valve stenosis Aneurysm of ascending aorta without rupture (HCC) Hospital discharge follow-up Plan/Recommendations: He was recently hospitalized for TIA. Workup was unremarkable. He will remain on aspirin 81 mg daily and take clopidogrel 75 mg daily for [address] a 14 day event monitor to look for paroxysmal atrial arrhythmia. We will follow-up with the patient over the phone once we have the resultsof the event monitor completed. He is known to have mild aortic valve stenosis. He had a new echo with this recent hospitalization and aortic valve stenosis remains mild. We will continue to monitor this as well with periodic echocardiograms. He has an aortic aneurysm which has been stable. I reminded him not to lift anything over 50 lb. I recommend the patient continue his aspirin and atorvastatin. I will defer to his next follow-up withDr. Benjamin regarding repeat CT scan to reassess the aneurysm. Keep the previously scheduled follow-up visit with Dr. Benjamin in March. However we will adjust hisfollow-up if indicated based on his clinical course. 07/26/2023 AMANDA Chavez-BC Nurse Practitioner with [facility] This note is dictated and transcribed using Profex Direct Software. Program Professional variancesmay occur. Despite proofreading, typographical errors may occur. D INVESTIGATOR documented in this encounter Plan of Treatment Not on file documented as of this encounter Results * Event Monitor (08/17/2023 3:59 PM FIELD INVESTIGATOR) Anatomical Region Laterality Modality Other Narrative 08/17/2023 4:02 PM FIELD INVESTIGATOR AMBULATORY DIRECTOR BLOOD BANK REPORT Patient Name: Meliton Delacruz Date of : 1940 ?? Requesting Physician: ??Dr. Benjamin Date of interpretation: 08/17/23 Type of monitor : ??2 week event monitor Date of the study/Enrollment period: ??07/26/2023-08/10/2023 Indication: ??TIA Quality of the study: ??Adequate Interpretation: ??Underlying rhythm is sinus rhythm, heart rate ranges between 50 beats per minute to 120 beats per minute, average heart rate 68 beats per minute. ??Intraventricular conduction delay versus bundle branch block was noted. ??Frequent supraventricular ectopy was seen in the form of PACs with a burden of 11%. ??Occasional ventricular ectopy was seen in the form of PVCs with a burden of 1% for the duration of the study. ??No other significant arrhythmias or heart blocks. ??No symptoms reported. Conclusions: Predominant underlying rhythm is sinus rhythm, average heart rate 68 beats per minute. Intraventricular conduction delay versus bundle branch block. Frequent supraventricular ectopy was noted in the form of PACs with a burden of 11% for the duration of the study. ??Rare ventricular ectopy. No other significant arrhythmias or heart blocks. No symptoms reported. Voice recognition software was used to complete this document, therefore, museum preparator variances may occur. Ugo Guevara MD, [facility] 08/17/23 Procedure Note Ugo Guevara MD - 08/17/2023 AMBULATORY DIRECTOR BLOOD BANK REPORT Patient Name: Meliton Delacruz Date of : 1940 Requesting Physician: Dr. Benjamin Date of interpretation: 08/17/23 Type of monitor : 2 week event monitor Date of the study/Enrollment period: 07/26/2023-08/10/2023 Indication: TIA Quality of the study: Adequate Interpretation: Underlying rhythm is sinus rhythm, heart rate rangesbetween 50 beats per minute to 120 beats per minute, average heart rate 68beats per minute. Intraventricular conduction delay versus bundle branchblock was noted. Frequent supraventricular ectopy was seen in the form ofPACs with a burden of 11%. Occasional ventricular ectopy was seen in theform of PVCs with a burden of 1% for the duration of the study. No othersignificant arrhythmias or heart blocks. No symptoms reported. Conclusions: Predominant underlying rhythm is sinus rhythm, average heart rate 68 beatsper minute. Intraventricular conduction delay versus bundle branch block. Frequent supraventricular ectopy was noted in the form of PACs with aburden of 11% for the duration of the study. Rare ventricular ectopy. No other significant arrhythmias or heart blocks. No symptoms reported. Voice recognition software was used to complete this document, therefore,museum preparator variances may occur. Ugo Guevara MD, [facility] 08/17/23 Kay Husain NP [facility] Final Result documented in this encounter Visit Diagnoses Diagnosis TIA (transient ischemic attack)- Primary Unspecified transient cerebral ischemia Nonrheumatic aortic valve stenosis Aneurysm of ascending aorta without rupture (HCC) Hospital discharge follow-up Other follow-up examination TIA (transient ischemic attack) Unspecified transient cerebral ischemia documented in this encounter Historical Medications * This list may reflect changes made after this encounter. clopidogreL (PLAVIX) 75 mg tablet Take 1 tablet (75 mg total) by mouth every morning 07/24/2023 10/27/2023 added in this encounter Care Teams Distribution Manager Relationship Specialty Start Date End Date Meliton Washburn MD PCP - General Family Medicine 04/01/22 documented as of this encounter
--- OUTSIDE RECORDS SUMMARY | 2024-06-06 22:19 | XMS_ITS | Encounter Summary ---
Author Organization [facility] Address [address] [place] [address] Care Team Providers Care Yard Manager Name Role Phone Tapan Stone MD Primary Care Provider [phone] Reason for Visit * Reason Comments New Patient Follow-up Follow up after Test ing * Consultation (Routine) - Closed Specialty Diagnoses / Procedures Referred By Contac t Referred To Contact Cardiology Diagnoses Murmur, heart Tapan Stone MD [address] [address] Phone: tel: fax: [facility] Cardiology [address] [facility] [address] [place] [address] Phone: tel: fax: Referral ID Status Reason Start Date Expiration Date V isits Requested Visits Authorized [id number] Closed Specialty Services Required 08/17/2021 09/16/2022 1 1 Encounter Details Date Type Department Care Team (Late st Contact Info) Description 09/28/2021 12:15 PM CDT Office Visit [facility] Cardiology [address] [facility] [address] [place] [phone] Karen Benjamin MD [address] [place] [id number] Primary hypertension (Primary Dx); Murmur, heart; High cholesterol; Other chest pain; Aneurysm of ascending aorta (CMS/HCC) (HCC); Nonrheumatic aortic valve stenosis Social History Tobacco Use Types Packs/Day Years Used Date Smoking Tobacco: Former Cigarettes 0.5 50 S tarted: 1974 Smokeless Tobacco: Never Sex and Gender Information Value Date Recorded Sex Assigned at Not on file 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 Gender Identity Not on file Sexual Orientation Not on file documented as of this encounter Last Filed Vital Signs Vital Sign Reading Time Taken Comments Blood Pressure 120/68 09/28/2021 12:12 PM CDT Pulse 59 09/28/2021 12:12 PM CDT Temperature - - Respiratory Rate - - Oxygen Saturation 98% 09/28/2021 12:12 PM CDT Inhaled Oxygen Concentration - - Weight 87.4 kg (192 lb 9.6 oz) 09/28/2021 12:12 PM CDT Height 182.9 cm (6') 09/28/2021 12:12 PM CDT Body Mass Index 26.12 09/28/2021 12:12 PM CDT documented in this encounter Progress Notes * Karen Benjamin MD - 09/28/2021 12:15 PM CDT [facility] CHIEF COMPLAINT Chief Complaint Patient presents with ??? New Patient ??? Follow-up Follow up after Testing HPI Meliton Delacruz is a 81 y.o. male with past medical history of [...] his sister had CABG at age 76. MEDICAL HISTORY Past Medical History: Diagnosis Date [...] mg (65 mg of elemental iron) tablet fluticasone propionate (FLONASE) 50 mcg/actuation nasal spray hydroCHLOROthiazide (HYDRODIURIL) 25 mg tablet metFORMIN (GLUCOPHAGE) 500 mg tablet ezbxdoozekzd-jebrjahw-vlmasv (Multivitamin 50 Plus) tablet niacin ER (NIASPAN) 500 mg CR capsule omeprazole (PriLOSEC) 20 mg capsule ALLERGIES Allergies Allergen Reactions ??? Sulfa (Sulfonamide [...] allergies and hives. PHYSICAL EXAM Vitals BP 120/68 (BP Location: Right arm, Patient Position: Sitting) Pulse 59 Ht 182.9 cm (6') Wt 87.4 kg (192 lb 9.6 oz) SpO2 98% BMI 26.12 kg/m?? Body mass index is 26.12 kg/m??. Physical Exam Constitutional: General: He is [...] leg: No edema. Skin: General: Skin is warm. Findings: No [...] attenuation. Negative EKG portion of stress test. EK09/28/2021-sinus rhythm, T-wave abnormalities involving V2 to V6, [...] Diagnoses and all orders for this visit: Primary hypertension (Primary) Murmur, heart - Ambulatory referral to Cardiology High cholesterol Other chest pain Aneurysm of ascending aorta (CMS/HCC) (HCC) Nonrheumatic aortic valve stenosis PLAN/RECOMMENDATIONS In regards to chest pain, he underwent Lexiscan stress test that appeared to be unremarkable for ischemia. No recurrence of chest pain. At this time will continue to observe and monitor patient. -in regards to hypertension, blood pressure is well controlled. Continue current medication regimen. -in regards to hyperlipidemia, continue statin. -in regards to ascending aorta aneurysm measuring 4.4 cm, will monitor. It is mild dilatation. -in regards to aortic stenosis appears to be mild with aortic valve area 1.7 cm2 and mean gradient 8 mm Hg. Follow up in the office in in 6 months. Karen Benjamin MD documented in this encounter Miscellaneous Notes * Addendum Note - Saulo Monsivais MA - 09/28/2021 12:15 PM CDTAddended by: SAULO MONSIVAIS on: 10/08/2021 01:47 PM Modules accepted: Orders documented in this encounter Plan of Treatment Not on file documented as of this encounter Procedures Procedure Name Priority Date/Time Associated Diagnosis Comments ECG 12-LEAD Routine 09/28/2021 Other chest pain Nonrheumatic aortic valve stenosis documented in this encounter Results * ECG 12 lead (09/28/2021) us Karen Benjamin MD ECG ORDERABLES Adeline l Result documented in this encounter Visit Diagnoses Diagnosis Primary hypertension- Primary Unspecified essential hypertension Murmur, heart Undiagnosed cardiac murmurs High cholesterol Pure hypercholesterolemia Other chest pain Aneurysm of ascending aorta (HCC) Thoracic aneurysm without mention of rupture Nonrheumatic aortic valve stenosis documented in this encounter Historical Medications * This list may reflect changes made after this encounter. multivitamin-min erals-lutein (Multivitamin 50 Plus) tablet Take by mouth daily fluticasone propionate (FLONASE) 50 mcg/actuation nasal spray Administer 1 spray into each nostril daily ferrous sulfate 325 mg (65 mg of elemental iron) tablet Take 1 tablet (325 mg total) by mouth daily with breakfast omeprazole (PriLOSEC) 20 mg capsule Take 1 capsule (20 mg total) by mouth daily 07/06/2021 atorvastatin (LIPITOR) 10 mg tablet 09/18/2021 metFORMIN (GLUCOPHAGE) 500 mg tablet Take 1 tablet (500 mg total) by mouth 2 (two) times a day 09/18/2021 amLODIPine-benaz epriL (LOTREL) 10-20 mg per capsule Take 1 capsule by mouth daily 09/18/2021 cetirizine (ZyrTEC) 10 mg tablet Take 1 tablet (10 mg total) by mouth daily 4 aspirin 81 mg chewable tablet Take 1 tablet (81 mg total) by mouth daily 4 niacin ER (NIASPAN) 500 mg CR capsule Take 1 capsule (500 mg total) by mouth nightly 4 hydroCHLOROthiaz hansel (HYDRODIURIL) 25 mg tablet Take 1 tablet (25 mg total) by mouth every morning 08/10/2021 3 added in this encounter Orders Outpatient Referral Count Last Ordered Date Fir st Ordered Date AMB REFERRAL TO CARDIOLOGY 1 09/28/2021 documented in this encounter Care Teams Yard Manager Relationship Specialty Start Date End Date Tapan Stone MD [address] [place] [address] PCP - General Family Medicine 08/05/21 03/31/22 documented as of this encounter
--- OUTSIDE RECORDS SUMMARY | 2024-06-06 22:19 | XMS_ITS | Encounter Summary ---
Author Organization [facility] Address [address] [place] [address] Care Team Providers Care Booster Operator Name Role Phone Meliton Washburn MD Primary Care Provider [phone] Encounter Details Date Type Department Care Team (Late st Contact Info) Description 04/02/2022 Orders Only [facility] Cardiology [address] [facility] [address] [place] [address] Kay Husain NP [address] [place] [address] Irregular heart beat Social History Tobacco Use Types Packs/Day Years Used Date Smoking Tobacco: Former Cigarettes 0.5 50 S tarted: 1975 Smokeless Tobacco: Never Sex and Gender Information Value Date Recorded Sex Assigned at Not on file 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 Gender Identity Not on file Sexual Orientation Not on file documented as of this encounter Plan of Treatment Not on file documented as of this encounter Procedures Procedure Name Priority Date/Time Associated Diagnosis Comments ECG 12-LEAD Routine 04/01/2022 Irregular heart beat documented in this encounter Results * ECG 12 lead (04/01/2022) Kay Husain NP ECG ORDERABLES Final Res ult documented in this encounter Visit Diagnoses Diagnosis Irregular heart beat Unspecified cardiac dysrhythmia documented in this encounter Care Teams Booster Operator Relationship Specialty Start Date End Date Meliton Washburn MD PCP - General Family Medicine 04/01/22 documented as of this encounter
--- OUTSIDE RECORDS SUMMARY | 2024-06-06 22:19 | XMS_ITS | Encounter Summary ---
Author Organization [facility] Address [address] [place] [address] Care Team Providers Care Body And Frame Man Name Role Phone Tapan Stone MD Primary Care Provider [phone] Reason for Visit * Diagnostic Imaging (Routine) - Closed Specialty Diagnoses / Procedures Referred By Contac t Referred To Contact Diagnoses Chest pain, unspecified type Essential hypertension Murmur, heart Procedures NM MPI SPECT (Rest and/or Stress) Multiple Studies Tapan Stone MD [address] [place] [address] Phone: tel: fax: [facility] Referral ID Status Reason Start Date Expiration Date Visits Re quested Visits Authorized [id number] Closed 08/18/2021 09/17/2022 1 1 Encounter Details Date Type Department Care Team (Latest Contact Info) Description 09/21/2021 9:15 AM CDT Ancillary Procedure [facility] Medical [facility] Cardiology [address] [place] [address] Chest pain, unspecified type; Essential hypertension; Murmur, heart Social History Tobacco Use Types Packs/Day Years Used Date Smoking Tobacco: Never Assessed Sex and Gender Information Value Date Recorded Sex Assigned at Not on file 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 Gender Identity Not on file Sexual Orientation Not on file documented as of this encounter Plan of Treatment Not on file documented as of this encounter Procedures Procedure Name Priority Date/Time Associated Diagnosis Comments NM MPI SPECT (REST AND/OR STRESS) MULTIPLE STUDIES Schedule Routine, Read Routine (OP Routine) 09/21/2021 11:29 AM CDT Chest pain, unspecified type Essential hypertension Murmur, heart documented in this encounter Results * NM MPI SPECT (Rest and/or Stress) Multiple Studies (09/21/2021 11:29 AM CDT) Anatomical Region Laterality Modality Body N/A Nuclear Medicine 09/21/2021 9:45 AM CDT Narrative 09/21/2021 3:28 PM CDT [facility] Cardiology [address], [place] [address] [address], [place] [address] P:[phone] P:[phone] MPI Imaging Report Patient Name: MELITON CARREON : [birth year] Study Date: 09/21/2021 9:45:38 AM Gender: M Tech: [facility] Location: [place] Ref.Provider: Tapan STONE Height(Cm): 182.8 BSA: Weight(Kg): 86.3 BMI: 25.83Order Provider: Tapan STONE - Physician: Referring Physician: Dr. Stone. HCG Physician: none. Interpreting Physician: Chay Carlson M.D. Stress Supervision: Chay Carlson M.D. Procedures: Myocardial perfusion imaging with Tc99M Sestamibi SPECT at rest and stress post regadenoson (Lexiscan) infusion. Indications: Chest Pain, Hypertension, Diabetes, Family Hx CAD, High Cholesterol, and Former Smoker. Findings: Procedural Findings: One day rest/stress was used. Tc99m Sestamibi injected IV at rest was 10.2 millicuries. 32.8 millicuries of Tc99M Sestamibi injected IV during Lexiscan stress. Lexiscan 0.4mg administered IV over 10 seconds. Patient had no symptoms during stress test. Baseline heart rate was 53 BPM. Maximum Heart Rate Achieved was: 98 BPM. Baseline blood pressure was 134/78 mmHg. Post Stress Blood Pressure was 138/80 mmHg. Termination: Protocol complete. Resting ECG: Normal sinus rhythm. Nonspecific T wave abnormality. Post ECG: No diagnostic ST changes. Arrhythmia: Frequent APCs. Perfusion Findings: Normal perfusion imaging. No definite fixed or reversible defects. Technical quality of study is excellent. Prone imaging was performed. Left ventricle cavity size at rest is normal. Left ventricle cavity size with stress is unchanged. A TID of 0.96 was automatically calculated. LV Function: Global left ventricular function is normal. Left ventricular ejection fraction is 58 %. Conclusions: Global left ventricular function is normal. Left ventricular ejection fraction is 58 %. Myocardial perfusion imaging is normal. There is an inferior/inferolateral defect which likely correlates to gut attenuation. Negative EKG portion of stress test. Electronically Signed By: Jamshid Carlson MD 2021-09-21 15:28:06 CDT Electronically Signed By: Jamshid Carlson MD 2021-09-21 15:28:06 CDT CC: CC: Procedure Note Jamshid Carlson MD - 09/21/2021 [facility] Cardiology [address], [place] [address] [address], [place] [address] P:[phone] P:[phone] MPI Imaging Report Patient Name: MELITON CARREONPatient ID: [id number] : [id number] Date: 09/21/2021 9:45:38 AM Gender: MAccession #: [id number] Tech: MTLocation: [place] Ref.Provider: Kulwant STONE(Cm): 182.8 BSA: Weight(Kg): 86.3 BMI: 25.83Order Provider: Tapan STONE Physician: Referring Physician: Dr. Stone. HCG Physician: none. InterpretingPhysician: Chay Carlson M.D. Stress Supervision: Chay Carlson M.D. Procedures: Myocardial perfusion imaging with Tc99M Sestamibi SPECT at rest and stresspost regadenoson (Lexiscan) infusion. Indications: Chest Pain, Hypertension, Diabetes, Family Hx CAD, High Cholesterol, andFormer Smoker. Findings: Procedural Findings: One day rest/stress was used. Tc99m Sestamibi injected IV at rest was 10.2millicuries. 32.8 millicuries of Tc99M Sestamibi injected IV during Lexiscan stress.Lexiscan 0.4mg administered IV over 10 seconds. Patient had no symptoms during stresstest. Baseline heart rate was 53 BPM. Maximum Heart Rate Achieved was: 98 BPM. Baselineblood pressure was 134/78 mmHg. Post Stress Blood Pressure was 138/80 mmHg. Termination: Protocol complete. Resting ECG: Normal sinus rhythm. Nonspecific T wave abnormality. Post ECG: No diagnostic ST changes. Arrhythmia: Frequent APCs. Perfusion Findings: Normal perfusion imaging. No definite fixed or reversible defects.Technical quality of study is excellent. Prone imaging was performed. Left ventricle cavitysize at rest is normal. Left ventricle cavity size with stress is unchanged. A TID of 0.96was automatically calculated. LV Function: Global left ventricular function is normal. Left ventricular ejectionfraction is 58 %. Conclusions: Global left ventricular function is normal. Left ventricular ejectionfraction is 58 %. Myocardial perfusion imaging is normal. There is an inferior/inferolateraldefect which likely correlates to gut attenuation. Negative EKG portion of stress test. Electronically Signed By: Jamshid Carlson MD 2021-09-21 15:28:06 CDT Electronically Signed By: Jamshid Carlson MD 2021-09-21 15:28:06 CDT CC: CC: [facility] Duane Stone MD [facility] PROCEDURES Final Result documented in this encounter Visit Diagnoses Diagnosis Chest pain, unspecified type Essential hypertension Unspecified essential hypertension Murmur, heart Undiagnosed cardiac murmurs documented in this encounter Administered Medications Inactive Administered Medications - up to 3 most recent administrations Medication Order MAR Action Action Date Dose Rate Site regadenoson (LEXISCAN) 0.4 mg/5 mL injection 0.4 mg 0.4 mg, intravenous, Once, On Tue09/21/21 at 1215, For 1 dose, Administer IV push over 10 seconds., Indications: Myocardial Perfusion Imaging AdjunctIndications:Myocard ial Perfusion Imaging Adjunct Given 09/21/2021 11:30 AM CDT 0.4 mg tc-99m sestamibi unit dose injection 10.2 millicurie 10.2 millicurie, intravenous, Once in imaging, radiopharmaceutical, Starting on Tue09/21/21 at 0946, For 1 dose, Indications: Diagnostic RadiographyIndications:Varsha gnostic Radiography Given 09/21/2021 9:46 AM CDT 10.2 millicuries tc-99m sestamibi unit dose injection 32.8 millicurie 32.8 millicurie, intravenous, Once in imaging, radiopharmaceutical, Starting on Tue09/21/21 at 1130, For 1 dose, Indications: Diagnostic RadiographyIndications:Varsha gnostic Radiography Given 09/21/2021 11:30 AM CDT 32.8 millicuries documented in this encounter Care Teams Body And Frame Man Relationship Specialty Start Date End Date Tapan Stone MD [address] [place] [address] PCP - General Family Medicine 08/05/21 03/31/22 documented as of this encounter
--- OUTSIDE RECORDS SUMMARY | 2024-06-06 22:19 | XMS_ITS | Encounter Summary ---
Author Organization [facility] Address [address] [place] [address] Care Team Providers Care Hogshead Stripper Name Role Phone Tapan Stone MD Primary Care Provider [phone] Reason for Visit * Cardiology (Routine) - Closed Specialty Diagnoses / Procedures Referred By Contac t Referred To Contact Diagnoses Murmur, heart Procedures Transthoracic Echo Complete W Doppler/CF Tapan Stone MD [address] [place] [address] Phone: tel: fax: [facility] Referral ID Status Reason Start Date Expiration Date Visits Re quested Visits Authorized [id number] Closed 08/17/2021 09/16/2022 1 1 Encounter Details Date Type Department Care Team (Late st Contact Info) Description 09/21/2021 8:15 AM CDT Ancillary Procedure [facility] Medical 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 Gender Identity Not on file Sexual Orientation Not on file documented as of this encounter Plan of Treatment Not on file documented as of this encounter Procedures Procedure Name Priority Date/Time Associated Diagnosis Comments TRANSTHORACIC ECHO (TTE) COMPLETE W DOPPLER/CF WO CONTRAST Routine 09/21/2021 8:44 AM CDT Murmur, heart documented in this encounter Results * TRANSTHORACIC ECHO (TTE) COMPLETE W DOPPLER/CF WO CONTRAST (09/21/2021 8:44 AM CDT) Anatomical Region Laterality Modality Ultrasound 09/21/2021 8:01 AM CDT Narrative 09/21/2021 12:12 PM CDT [facility] Cardiology [address], [place] [address] [address], [place] [address] P:[phone] P:[phone] Echocardiographic Report Patient Name: MELITON CARREON : 1940 Study Date: 09/21/2021 8:01:00 AM Gender: M Tech: GM Location: [place] Ref.Provider: Tapan STONE Height(Cm): 183 BSA: 2.08 Weight(Kg): 86.18 Heart Rate: 64 BP: 175/85 Quality: Good Order Provider: Tapan STONE Procedures: Echocardiographic Report: Transthoracic echocardiogram with complete 2D, M-Mode, and color Doppler examination. Indications: Murmur. Measurements: 2D/M Mode ?Doppler ? Measurement ?Value ?Normal Range ? Measurement ?Value ?Normal Range ? EF Mod ? 61 ?CALEB ?1.69 ? [ 2.00 - 4.00 ] cm2 ? EF MM ?82 ? [ 55 - 70 ] % ?AV Mean PG ? 8 ?mmHg ? LVIDd MM ? 5.73 ? [ 3.90 - 5.30 ] cm ? AV Peak Chuck ?2.44 ? m/s ? LVIDs MM ? 2.80 ? [ 2.30 - 3.90 ] cm ? AV Peak PG ? 24 ? mmHg ? LVPWd MM ? 1.20 ? [ 0.60 - 1.00 ] cm ? AV VTI ? 0.47 ? cm ? IVSd MM ?1.20 ? [ 0.60 - 0.90 ] cm ? LVOT Diam ?2.26 ? [ 1.70 - 2.10 ] cm ? LA Dimension MM ?4.47 ? [ 2.70 - 3.80 ] cm ? LVOT Peak Chuck ?1.03 ? [ 0.70 - 1.10 ] m/s ? AoR Diam MM ?3.93 ? [ 2.60 - 3.70 ] cm ? LVOT VTI ? 0.26 ? cm ? LA Volume Index ?46.00 ?[ 16.00 - 28.00 ] cc/m2 ?MV E Peak Chuck ?0.97 ? [ 0.60 - 1.30 ] m/s ? ACS MM ? 1.33 ? cm ? MV A Peak Chuck ?1.28 ? [ 0.40 - 0.80 ] m/s ? MV Decel Time ?239 ?[ 150 - 200 ] msec ? PV Peak Chuck ?1.35 ? [ 0.40 - 0.80 ] m/s ? TR Peak Chuck ?2.96 ? [ 0.40 - 0.80 ] m/s ? TR Peak PG ? 35 ? mmHg ? RVSP ? 43.00 ?mmHg ? E' ? 0.10 ? E/E' ? 10 ? - Findings: Interpretation Site: Exam was interpreted at [facility]. Left Ventricle: Normal left ventricular systolic function. No focal wall motion abnormalities. Normal left ventricular size. Mild concentric left ventricular hypertrophy. Impaired diastolic relaxation Grade I. Ejection fraction is measured at 61 %. Right Ventricle: Normal right ventricular size. Normal right ventricular systolic function. Left Atrium: There is mild enlargement of left atrium. Right Atrium: The right atrium is normal in size. Atrial Septum: Normal atrial septum. Mitral Valve: Normal appearance of the mitral valve. Mild mitral valve regurgitation. There is no hemodynamically significant mitral stenosis by Doppler. Aortic Valve: Mild aortic stenosis. Peak gradient of 24.0 mmHg. Mean gradient of 8.0 mmHg. Valve area of 1.69 cm2. Aortic cusps appear mildly calcified. Probable trileaflet aortic valve, although not all leaflets are visualized. Trace aortic valve regurgitation. Tricuspid Valve: Normal appearance of the tricuspid valve. Estimated peak RVSP is 42 mmHg. Mild tricuspid regurgitation. Pulmonic Valve: Normal appearance of the pulmonic valve. No evidence of pulmonic regurgitation. Pericardium: Pericardium not well visualized. Aorta: Sinus of Valsalva is normal. Ascending aorta is mildly dilated. Ascending Aorta 4.0 cm. IVC: Normal size and normal respiratory collapse consistent with normal right atrial pressure (<5 mmHg). Pulmonary Artery: Normal pulmonary artery size. Conclusions: Normal left ventricular systolic function. No focal [...] aorta is mildly dilated. Ascending Aorta 4.0 cm. Electronically Signed By: Dr. Karen Benjamin [facility] 2021-09-21 12:12:09 CDT CC: CC: Procedure Note Karen Benjamin MD - 09/21/2021 [facility] Cardiology [address] [id number] [address], [place] [address] P:[phone] P:[phone] Echocardiographic Report Patient Name: MELITON CARREONPatient ID: [id number] : [id number] Date: 09/21/2021 8:01:00 AM Gender: MAccession #: [id number] Tech: GMLocation: [place] Ref.Provider: Johnson STONEt(Cm): 183 BSA: 2.08Weight(Kg): 86.18 Heart Rate: 64BP: 175/85 Quality: GoodOrder Provider: Tapan STONE Procedures: Echocardiographic Report: Transthoracic echocardiogram with complete 2D, M-Mode, and color Dopplerexamination. Indications: Murmur. Measurements: 2D/M Mode Doppler Measurement Value Normal Range MeasurementValue Normal Range EF Mod 61 AVA1.69 [ 2.00 - 4.00 ] cm2 EF MM 82 [ 55 - 70 ] % AV Mean PG 8mmHg LVIDd MM 5.73 [ 3.90 - 5.30 ] cm AV Peak Vel2.44 m/s LVIDs MM 2.80 [ 2.30 - 3.90 ] cm AV Peak PG 24mmHg LVPWd MM 1.20 [ 0.60 - 1.00 ] cm AV VTI0.47 cm IVSd MM 1.20 [ 0.60 - 0.90 ] cm LVOT Diam2.26 [ 1.70 - 2.10 ] cm LA Dimension MM 4.47 [ 2.70 - 3.80 ] cm LVOT Peak Vel1.03 [ 0.70 - 1.10 ] m/s AoR Diam MM 3.93 [ 2.60 - 3.70 ] cm LVOT VTI0.26 cm LA Volume Index 46.00 [ 16.00 - 28.00 ] cc/m2 MV E Peak Vel0.97 [ 0.60 - 1.30 ] m/s ACS MM 1.33 cm MV A Peak Vel1.28 [ 0.40 - 0.80 ] m/s MV Decel Ajci329 [ 150 - 200 ] msec PV Peak Vel1.35 [ 0.40 - 0.80 ] m/s TR Peak Vel2.96 [ 0.40 - 0.80 ] m/s TR Peak PG 35mmHg RVSP43.00 mmHg E'0.10 E/E' 10 - Findings: Interpretation Site: Exam was interpreted at [facility]. Left Ventricle: Normal left ventricular systolic function. No focal wall motionabnormalities. Normal left ventricular size. Mild concentric left ventricular hypertrophy.Impaired diastolic relaxation Grade I. Ejection fraction is measured at 61 %. Right Ventricle: Normal right ventricular size. Normal right ventricular systolicfunction. Left Atrium: There is mild enlargement of left atrium. Right Atrium: The right atrium is normal in size. Atrial Septum: Normal atrial septum. Mitral Valve: Normal appearance of the mitral valve. Mild mitral valve regurgitation.There is no hemodynamically significant mitral stenosis by Doppler. Aortic Valve: Mild aortic stenosis. Peak gradient of 24.0 mmHg. Mean gradient of 8.0mmHg. Valve area of 1.69 cm2. Aortic cusps appear mildly calcified. Probable trileafletaortic valve, although not all leaflets are visualized. Trace aortic valveregurgitation. Tricuspid Valve: Normal appearance of the tricuspid valve. Estimated peak RVSP is 42 mmHg.Mild tricuspid regurgitation. Pulmonic Valve: Normal appearance of the pulmonic valve. No evidence of pulmonicregurgitation. Pericardium: Pericardium not well visualized. Aorta: Sinus of Valsalva is normal. Ascending aorta is mildly dilated. AscendingAorta 4.0 cm. IVC: Normal size and normal respiratory collapse consistent with normal rightatrial pressure (<5 mmHg). Pulmonary Artery: Normal pulmonary artery size. Conclusions: Normal left ventricular systolic function. No focal wall motionabnormalities. Normal left ventricular size. Mild concentric left ventricular hypertrophy.Impaired diastolic relaxation Grade I. Ejection fraction is measured at 61 %. There is mild enlargement of left atrium. Mild mitral valve regurgitation. Mild aortic stenosis. Peak gradient of 24.0 mmHg. Mean gradient of 8.0mmHg. Valve area of 1.69 cm2. Aortic cusps appear mildly calcified. Probable trileafletaortic valve, although not all leaflets are visualized. Trace aortic valveregurgitation. Estimated peak RVSP is 42 mmHg. Mild tricuspid regurgitation. Sinus of Valsalva is normal. Ascending aorta is mildly dilated. AscendingAorta 4.0 cm. Electronically Signed By: Dr. Karen Benjamin [facility] 2021-09-21 12:12:09 CDT CC: CC: Tapan Stone MD CV ECHO PROCEDURES Final Result documented in this encounter Visit Diagnoses Diagnosis Murmur, heart Undiagnosed cardiac murmurs documented in this encounter Care Teams Hogshead Stripper Relationship Specialty Start Date End Date Tapan Stone MD [address] [place] [address] PCP - General Family Medicine 08/05/21 03/31/22 documented as of this encounter
--- OUTSIDE RECORDS SUMMARY | 2024-06-06 22:19 | XMS_ITS | Encounter Summary ---
Author Organization [facility] Address [address] [place] [address] Care Team Providers Care Practice Billing Associate Name Role Phone Meliton Washubrn MD Primary Care Provider [phone] Reason for Referral * Cardiology (Routine) - Closed Specialty Diagnoses / Procedures Referred By Contac t Referred To Contact Diagnoses Irregular heart beat Procedures ECG 12 lead Kay Husain NP [address] [address] Phone: tel: fax: [facility] Referral ID Status Reason Start Date Expiration Date Visits Re quested Visits Authorized [id number] Closed 04/01/2022 05/01/2023 1 1 Reason for Visit * Reason Comments Hospital Follow Up Encounter Details Date Type Department Care Team ([facility] Contact Info) Description 04/01/2022 10:00 AM CDT Office Visit [facility] Cardiology [address] [place] [address] Kay Husain NP [address] [address] Irregular heart beat (Primary Dx); Other chest pain; Nonrheumatic aortic valve stenosis; Aneurysm of ascending aorta without rupture Social History Tobacco Use Types Packs/Day Years Used Date Smoking Tobacco: Former Cigarettes 0.5 50 S tarted: 1974 Smokeless Tobacco: Never Tobacco Cessation:Counseling Given: Not Answered Sex and Gender Information Value Date Recorded Sex Assigned at Not on file 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 [facility] Cardiology [address] [place] [address] Date of Visit: 04/01/2022 Patient ID: Meliton Delacruz 1940 Chief Complaint Patient presents with Hospital Follow Up Meliton Delacruz is a 81 y.o. male who is a newly established patient of Dr. Benjamin with a history of chest pain and aortic stenosis returning to the office for follow-up and having a recent hospitalization. History of Present Illness: Meliton Delacruz is a 81 y.o. male [...] at age 76. 04/01/2022 hospital follow-up with [facility]: He was hospitalized at [facility] 02/12-02/16 for complaint of chest pain and [...] sinus rhythm, normal axis and normal intervals Records that I personally reviewed on the day of this visit include: (the interpretation is outlined in the HPI above) 09/28/[address] Benjamin and ECG, 09/21/2021 echocardiogram report, today's ECG I have also reviewed: allergies, current medications, [...] Smoking Status Former Packs/day: 0.50 Years: 24.00 Pack years: 12.00 Types: Cigarettes Start date: 1974 Smokeless Tobacco Never Social History Tobacco Use Smoking status: Former Packs/day: 0.50 Years: 24.00 Pack years: 12.00 Types: Cigarettes Start date: 1974 Smokeless tobacco: Never Substance and Sexual Activity Drug use: None Sexual activity: None Alcohol Use: Not on file Family History Problem Relation Age of Onset Cancer Mother Stroke Father Heart attack Father Heart disease Other Stroke Other Review of Systems Constitutional: Negative for diaphoresis, fever, malaise/fatigue, weight gain and weight loss. HENT: Negative for hearing loss. Eyes: Negative for visual disturbance. Cardiovascular: Negative for chest pain, claudication, dyspnea on exertion, leg swelling, orthopnea, palpitations, paroxysmal nocturnal dyspnea and syncope. Respiratory: Negative for cough, hemoptysis, shortness of breath, snoring and wheezing. Hematologic/Lymphatic: Does not bruise/bleed easily. Skin: Negative for poor wound healing and rash. Musculoskeletal: Negative for joint pain and myalgias. Gastrointestinal: Negative for heartburn, nausea and vomiting. Genitourinary: Positive for hematuria (Cleared after Ahumada catheter was flushed). Neurological: Negative for dizziness, headaches and light-headedness. Psychiatric/Behavioral: Negative for depression. The patient is not nervous/anxious. Vital Signs: BP 116/60 (BP Location: Left arm, Patient Position: Sitting) Pulse 63 Ht 182.9 cm (6') Wt 82.6 kg (182 lb) BMI 24.68 kg/m?? Physical Exam Constitutional: General: He is not in acute distress. Appearance: He is well-developed. HENT: Head: Normocephalic and atraumatic. Nose: Comments: Wearing a mask Eyes: General: No scleral icterus. Conjunctiva/sclera: Conjunctivae normal. Neck: Vascular: No JVD. Trachea: No tracheal deviation. Cardiovascular: Rate and Rhythm: Normal rate. Rhythm regularly irregular. Heart sounds: Normal heart sounds. No murmur heard. Pulmonary: Effort: Pulmonary effort [...] Rfl: aspirin 81 mg chewable tablet, Take 81 mg by mouth daily, Disp: , Rfl: atorvastatin (LIPITOR) 10 mg tablet, , Disp: , Rfl: bethanechol (URECHOLINE) 25 mg tablet, Take 25 mg by mouth 3 (three) times a day, Disp: , Rfl: cetirizine (ZyrTEC) 10 mg tablet, Take 10 mg by mouth daily, Disp: , Rfl: ferrous sulfate 325 mg (65 mg of elemental iron) tablet, Take 65 mg of elemental iron by mouth daily with breakfast, Disp: , Rfl: finasteride (PROSCAR) 5 mg tablet, Take 5 mg by mouth daily, Disp: , Rfl: fluticasone propionate (FLONASE) 50 mcg/actuation nasal spray, Administer 1 spray into each nostrildaily, Disp: , Rfl: hydroCHLOROthiazide (HYDRODIURIL) 25 mg tablet, Take 25 mg by mouth every morning, Disp: , Rfl: metFORMIN (GLUCOPHAGE) 500 mg tablet, Take 500 mg by mouth 2 (two) times a day, Disp: , Rfl: equjlydmpaju-vtjwcmct-wldasx (Multivitamin 50 Plus) tablet, Take by mouth daily, Disp: , Rfl: niacin ER (NIASPAN) 500 mg CR capsule, Take 500 mg by mouth nightly, Disp: , Rfl: omeprazole (PriLOSEC) 20 mg capsule, Take 20 mg by mouth daily, Disp: , Rfl: No results found for: POTASSIUM, BUNSER, CREATININE, CHOL, TRIG, LDL, LDLCALC, HDL No results found for: WBC, HGB, HCT, MCV, PLT No results found for this or [...] of the ascending aorta measuring 4.4 cm Assessment: Diagnoses and all orders for this visit: Irregular heart beat (Primary) - ECG 12 lead; Future Other chest pain Nonrheumatic aortic valve stenosis Aneurysm of ascending aorta without rupture Plan/Recommendations: On exam he had a regularly irregular rhythm which sounded like PVCs in a pattern of trigeminy. ECG done in the office showed sinus rhythm. No changes on ECG compared to the 1 done in September of this year. He is had no further chest pain episodes. He had a negative stress test earlier this year. We will continue to monitor him on routine follow-up but no further cardiac testing is indicated at this time. I advised the patient his if he has any further episodes of chest pain to contact our office. Echocardiogram earlier this year showed mild aortic stenosis. We will continue to monitor this as well with periodic echocardiograms. CT of his chest earlier this year showed ectasia of the ascending aorta. It looks like he had a CT repeated when he was hospitalized in late January that mentioned the aneurysm was stable. I will request a copy of this CT for records to verify that. I recommend the patient continue his aspirin and atorvastatin. Routine follow-up with Dr. Benjamin in 6 months. Call us sooner with questions or concerns. 04/02/2022 addendum: I received and reviewed the report of chest CT 02/11/2022 from [facility] which ???stable ectasia of ascending aorta measuring 4.4 cm?? compared to chest CT dated 08/05/2021. I called the patient and his and explained this finding and how this measurement is small that we will continue to monitor it, probably an annual chest CT. They verbalized understanding and were appreciative. 04/01/2022 AMANDA Chavez- Nurse Practitioner with [facility] [place] This note is dictated and transcribed using [employer] Direct Software. Data Management Manager variancesmay occur. Despite proofreading, typographical errors may occur. documented in this encounter Plan of Treatment Not on file documented as of this encounter Results * ECG 12 lead (04/01/2022) us Kay Husain NP ECG ORDERABLES Final Res ult documented in this encounter Visit Diagnoses Diagnosis Irregular heart beat- Primary Unspecified cardiac dysrhythmia Other chest pain Nonrheumatic aortic valve stenosis Aneurysm of ascending aorta without rupture (HCC) documented in this encounter Historical Medications * This list may reflect changes made after this encounter. finasteride (PROSCAR) 5 mg tablet Take 1 tablet (5 mg total) by mouth daily 03/22/2022 bethanechol (URECHOLINE) 25 mg tabletIndications :Urinary Retention Take 25 mg by mouth 3 (three) times a day 10/04/2022 added in this encounter Care Teams Practice Billing Associate Relationship Specialty Start Date End Date Meliton Washburn MD PCP - General Family Medicine 04/01/22 documented as of this encounter
--- OUTSIDE RECORDS SUMMARY | 2024-06-06 22:20 | XMS_ITS | Encounter Summary ---
Author Organization [facility] Address [address] [place] [address] Care Team Providers Care Opal Miner Name Role Phone Tapan Stone MD Primary Care Provider Encounter Details Date Type Department Care Team (Late st Contact Info) Description 09/07/2021 Documentation [facility] Cardiology [address] [facility] [address] [facility] [address] [place] [id number] Meliton Sheehan MD [address] [facility] [address] [place], [place] [id number] Social History Tobacco Use Types Packs/Day Years Used Date Smoking Tobacco: Never Assessed Sex and Gender Information Value Date Recorded Sex Assigned at Not on file 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 The heart rate varies from a minimum of 50 to a maximum of 132. The average heart rate was 67. There were no examplesof abnormal AV conduction and no significant pauses identified. Supraventricular ectopic activity consisted of occasional PACs that were also a couple of runs of slow supraventricular tachycardia the longest of which was 13 beats in duration. The run has an average rate of 123 beats per minute. It is preceded in terminated by normal sinus rhythm. This run occurred on 08/31/2021 at 1:51 p.m.. Ventricular ectopic activity was rare consisting of occasional PVCs. There were no ventricular couplets or runs identified. The patient did not experience or report any symptoms during this monitor. Conclusions: 1. Normal sinus rhythm with normal heart rate variability as described above 2. Atrial ectopic activity including a couple of episodes of an ectopic atrial tachycardia which are not very fast to the longest run recorded was 13 beats. 3. Rare ventricular ectopic activity Meliton Sheehan MD [facility] Voice recognition software was used to complete this document, therefore, card setter variances may occur. 09/07/21 documented in this encounter Plan of Treatment Not on file documented as of this encounter Visit Diagnoses Not on filedocumented in this encounter Care Teams Opal Miner Relationship Specialty Start Date End Date Tapan Stone MD [address] [place] [address] PCP - General Family Medicine 08/05/21 03/31/22 documented as of this encounter
--- OUTSIDE RECORDS SUMMARY | 2024-06-06 22:20 | XMS_ITS | Encounter Summary ---
Author Organization [facility] Address [address] [place] [address] Care Team Providers Care Cut Out Press Operator Name Role Phone Tapan Stone MD Primary Care Provider [phone] Reason for Visit * Cardiology (Routine) - Closed Specialty Diagnoses / Procedures Referred By Contac t Referred To Contact Diagnoses Chest tightness SOB (shortness of breath) Procedures Event Monitor, 30 Day Event Tapan Stone MD [address] [place] [address] Phone: tel: fax: [facility] Referral ID Status Reason Start Date Expiration Date Visits Re quested Visits Authorized [id number] Closed 08/05/2021 09/04/2022 1 1 Encounter Details Date Type Department Care Team (Latest Contact Info) Description 08/05/2021 3:30 PM CHIEF 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 Ancillary Procedure [facility] Cardiology [address] [facility] [place] [address] Chest tightness; SOB (shortness of breath) Social History Tobacco Use Types Packs/Day Years Used Date Smoking Tobacco: Never Assessed Sex and Gender Information Value Date Recorded Sex Assigned at Not on file 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 Sex 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:39 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 Gender Identity Not on file Sexual Orientation Not on file documented as of this encounter Plan of Treatment Pending Results Name Type Priority Associated Diagnoses Date /Time Event Monitor, 30 Day Event Cardiac Services Routine Chest tightness SOB (shortness of breath) 08/05/2021 4:14 PM CHIEF 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 documented as of this encounter Visit Diagnoses Diagnosis Chest tightness Other chest pain SOB (shortness of breath) Shortness of breath documented in this encounter Care Teams Cut Out Press Operator Relationship Specialty Start Date End Date Tapan Stone MD [address] [place] [address] PCP - General Family Medicine 08/05/21 03/31/22 documented as of this encounter
--- OUTSIDE RECORDS SUMMARY | 2024-06-06 22:20 | XMS_ITS | Encounter Summary ---
Author Organization [facility] Address [address] [place] [address] Care Team Providers Care Robot Programmer Name Role Phone Tapan Stone MD Primary Care Provider [phone] Encounter Details Date Type Department Care Team (Late st Contact Info) Description 08/18/2021 Orders Only [facility] Cardiology [address] [facility] [address] [place] [address] ProviderChrist MD [address] [place] [id number] Social History Tobacco Use Types Packs/Day Years Used Date Smoking Tobacco: Never Assessed Sex and Gender Information Value Date Recorded Sex Assigned at Not on file 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 Gender Identity Not on file Sexual Orientation Not on file documented as of this encounter Plan of Treatment Not on file documented as of this encounter Procedures Procedure Name Priority Date/Time Associated Diagnosis Comments CARDIOLOGY DOCUMENT SCAN Routine 08/18/2021 documented in this encounter Results * SCAN - CARDIOLOGY (08/18/2021) Anatomical Region Laterality Modality Other Historical Provider [facility]ARDI[facility] URIEL SHANE Final Result documented in this encounter Visit Diagnoses Not on filedocumented in this encounter Care Teams Robot Programmer Relationship Specialty Start Date End Date Tapan Stone MD [address] [place] [address] PCP - General Family Medicine 08/05/21 03/31/22 documented as of this encounter
--- OUTSIDE RECORDS SUMMARY | 2024-06-06 22:35 | XMS_ITS | Encounter Summary ---
Author Organization [facility] Address [address] [place] [address] Care Team Providers Care Packing Inspector Name Role Phone Meliton Washburn MD Primary Care Provider [phone] Encounter Details Date Type Department Care Team (Late st Contact Info) Description 02/15/2024 External Device Data [facility] ABSTRACTION Provider, Abstract NO ADDRESS ON FILE Social History Tobacco Use Types Packs/Day Years Used Date Smoking Tobacco: Never Smokeless Tobacco: Never Alcohol Use Standard Drinks/Week Comments Never 0 (1 standard drink = 0.6 oz pur e alcohol) Sex and Gender Information Value Date Recorded Sex Assigned at Not on file Gender Identity Not on file Sexual Orientation Not on file documented as of this encounter Plan of Treatment Upcoming Encounters Date Type Department Care Team (Late st Contact Info) Description 11/05/2024 1:00 PM CDT Office Visit [facility] Oncology and Hematology - [place] [address] [place] [address] [address] [phone] [place] [address] [place] [address] [address] [place] [address] documented as of this encounter Visit Diagnoses Not on filedocumented in this encounter Care Teams Packing Inspector Relationship Specialty Start Date End Date Meliton Washburn MD PCP - General Family Practice 03/30/22 documented as of this encounter
--- OUTSIDE RECORDS SUMMARY | 2024-06-06 22:35 | XMS_ITS | Clinical Summary ---
Author Organization [facility] Address [address] [place] [address] Care Team Providers Care Pathologist Assistant Name Role Phone Meliton Washburn MD Primary Care Provider [phone] Allergies Active Allergy Reactions Criticality Noted Date Comments Adhesive Tape-Silicones Rash Low 01/19/2024 Sulfa (Sulfonamide Antibiotics) Nausea and Vomiting Low 09/21/2021 Medications Medication Sig Dispensed Refills Start Date End Date Status amLODIPine-atorvast atin 5-10 mg tablet Take 1 Tablet by mouth daily. Active atorvastatin (LIPITOR) 10 mg tablet Take 10 mg by mouth daily. Active cetirizine (ZyrTEC) 10 mg tablet Take 10 mg by mouth daily. Active IRON, CARBONYL ORAL Take 65 mg by mouth. Active fluticasone propionate (FLONASE) 50 mcg/spray [place], Suspension nasal inhaler Administer 2 Sprays in each nostril daily. Active metFORMIN (GLUCOPHAGE) 500 mg tablet Take 500 mg by mouth 2 times daily with meals. Active omeprazole (PriLOSEC) 20 mg Capsule, Delayed Release(E.C.) Take 20 mg by mouth daily. Active finasteride (PROSCAR) 5 mg tablet Take 5 mg by mouth daily. 03/22/2022 Active ALPRAZolam (XANAX) 0.25 mg tablet Take 0.25 mg by mouth 3 times daily as needed for Anxiety. 08/10/2023 Active amLODIPine-benazepr il (LOTREL) 10-20 mg capsule Take 1 Capsule by mouth daily. 08/10/2023 Active Sodium Chloride 1,000 mg Tablet, Soluble Take 1 Gram by mouth 3 times daily with meals. 11/16/2023 11/15/2024 Active Active Problems Problem Noted Date Diagnosed Date Chronic anemia 03/30/2022 Encounters Date Type Department Care Team Description 05/07/2024 2:45 PM CLERICAL SPECIALIST Office Visit [facility] Oncology and Hematology [facility] [place] [address] [place] [address] Av Melendez MD Chronic anemia (Primary Dx) 05/04/[address] [facility] Oncology and Hematology [facility] [place] [address] [place] [address] Av Melendez MD from Last 3 Months Social History Tobacco Use Types Packs/Day Years Used Date Smoking Tobacco: Never Smokeless Tobacco: Never Tobacco Cessation:Counseling Given: Not Answered Alcohol Use Standard Drinks/Week Comments Never 0 (1 standard drink = 0.6 oz pur e alcohol) Sex and Gender Information Value Date Recorded Sex Assigned at Not on file Gender Identity Not on file Sexual Orientation Not on file Last Filed Vital Signs Vital Sign Reading Time Taken Comments Blood Pressure 131/68 05/07/2024 3:27 PM CLERICAL SPECIALIST Pulse 69 05/07/2024 3:24 PM CLERICAL SPECIALIST Temperature 36.6 ??C (97.8 ??F) 05/07/2024 3:24 PM CS T Respiratory Rate 15 05/07/2024 3:24 PM CLERICAL SPECIALIST Oxygen Saturation 96% 05/07/2024 3:24 PM CLERICAL SPECIALIST Inhaled Oxygen Concentration - - Weight 83.3 kg (183 lb 9.6 oz) 05/07/2024 3:24 P M CLERICAL SPECIALIST Height 182.9 cm (6') 03/30/2022 2:41 PM CDT Body Mass Index 24.9 03/30/2022 2:41 PM CDT Plan of Treatment Upcoming Encounters Date Type Department Care Team (Late st Contact Info) Description 11/05/2024 1:00 PM CDT Office Visit [facility] Oncology and Hematology [facility] [place] [address] [place] [address] Av Melendez MD [address] [facility] [address] [place] [address] Health Maintenance Due Date Last Done Comments PNEUMOCOCCAL VACCINE 65+ YEARS (1 of 2 - PCV) 04/04/19 46 DIABETES ANNUAL FOOT EXAM 1958 DIABETES ANNUAL RETINAL EXAM 1958 DIABETES MICROALBUMIN ANNUAL SCREEN 1958 LDL CHOLESTEROL ANNUAL 1958 DTAP/TDAP/TD VACCINES (1 - Tdap) 1959 ZOSTER VACCINE (1 of 2) 1990 RSV VACCINE (60+ or ) (1 - 1-dose 75+ series) 2015 INFLUENZA VACCINE (#1) 2024 DIABETES HBA1C Q 6 MONTHS 04/25/2024 10/24/2023 Procedures Procedure Name Priority Date/Time Associated Diagnosis Comments CBC WITH DIFFERENTIAL Routine 05/03/2024 12:30 PM CLERICAL SPECIALIST IRON LEVEL Routine 05/03/2024 12:21 PM CLERICAL SPECIALIST from Last 3 Months Results * CBC WITH DIFFERENTIAL (05/03/2024 12:30 PM CLERICAL SPECIALIST) Blood Av Melendez MD HEMATOLOGY ORDERABLE S * IRON LEVEL (05/03/2024 12:21 PM CLERICAL SPECIALIST) Blood Av Melendez MD CHEMISTRY ORDERABLES from Last 3 Months Care Teams Pathologist Assistant Relationship Specialty Start Date End Date Meliton Washburn MD PCP - General Family Practice 03/30/22
--- OUTSIDE RECORDS SUMMARY | 2024-06-06 22:35 | XMS_ITS | Encounter Summary ---
Author Organization [facility] Address [address] [place] [address] Care Team Providers Care Oil Well Gun Perforator Operator Name Role Phone Meliton Washburn MD Primary Care Provider [phone]- [phone] Encounter Details Date Type Department Care Team (Late st Contact Info) Description 03/06/2024 External Device Data STL ABSTRACTION Provider, Abstract [...] Description 11/05/2024 1:00 PM CDT Office Visit [facility] Oncology and Hematology - [place]useb[place] [address] [place] [address] [address] [phone] [place] [address] [place] [address] [address] [place] [address] documented as of this encounter Visit Diagnoses Not on filedocumented in this encounter Care Teams Oil Well Gun Perforator Operator Relationship Specialty Start Date End Date Meliton Washburn MD PCP - General Family Practice 03/30/22 documented as of this encounter
--- OUTSIDE RECORDS SUMMARY | 2024-06-06 22:35 | XMS_ITS | Encounter Summary ---
Author Organization [facility] [employer] [facility] Address [address] [place] [address] Care Team Providers Care Print Machine Operator Name Role Phone Meliton Washburn MD Primary Care Provider +1- [phone] Reason for Visit * Reason Comments Follow Up Encounter Details Date Type Department Care Team ([facility] st Contact Info) Description 05/07/2024 2:45 PM JEWEL HOLE ROUGH OPENER Office Visit [facility] Oncology and Hematology - Eusebio [address] [facility] [address] [place] [address] Av Melendez MD [address] [facility] [address] [place] [address] Chronic anemia (Primary Dx) Social History Tobacco Use Types [...] Comments Blood Pressure 131/68 05/07/2024 3:27 PM JEWEL HOLE ROUGH OPENER Pulse 69 05/07/2024 3:24 PM JEWEL HOLE ROUGH OPENER Temperature 36.6 ??C (97.8 ??F) 05/07/2024 3:24 PM CS T Respiratory Rate 15 05/07/2024 3:24 PM JEWEL HOLE ROUGH OPENER Oxygen Saturation 96% 05/07/2024 3:24 PM JEWEL HOLE ROUGH OPENER Inhaled Oxygen Concentration - - Weight 83.3 kg (183 lb 9.6 oz) 05/07/2024 3:24 P M JEWEL HOLE ROUGH OPENER Height - - Body Mass Index 24.9 03/30/2022 2:41 PM CDT documented in this encounter Progress Notes * Av Melendez MD - 05/07/2024 5:07 PM CST HEMATOLOGY / ONCOLOGY PROGRESS NOTE Patient Identification: Name: Meliton Delacruz Age: 84 y.o. Sex: male : 1940 DIAGNOSIS Iron deficiency anemia CURRENT TREATMENT Ferrous sulfate 3 times a day. TREATMENT HISTORY SUBJECTIVE Patient came to the office for follow-up visit. He denies any excessive tiredness and fatigue. He is feeling much better and more stronger. Denies any chest pain and shortness of breath. Weight and appetite stable. No other new complaints. Review of system Constitutional: Patient did not mention fevers, sweats, denies any tiredness and fatigue, weight and appetite stable HEENT: Patient did not mention sinus congestion, hearing or vision problems Respiratory: Patient did not mention cough, dyspnea, wheeze Cardiovascular: Patient did not mention chest pain, exertional chest pressure/discomfort, nausea, syncope, shortness of breath GI: Patient did not mention diarrhea, dsyphagia, reflux symptoms, vomiting, melena, intermittent constipation : Patient did not mention dysuria, frequency, incontinence, urgency, denies any hematuria Integumentary system: no lymphadenopathy, sweats, flushing Musculoskeletal: Patient not mention: myalgia, arthralgia Neurological: Patient did not mention blurry or disturbed vision, numbness/weakness, dizziness Skin: No lumps, bumps or rashes. 12 point review of system was reviewed Objective: Vital signs in last 24 hours: As per nursing note Exam: HEENT: Atraumatic, external ears normal, nose normal, oropharynx moist, no pharyngeal exudates. no sinus tenderness Neck- normal range of motion, no tenderness, supple Respiratory: No respiratory distress, normal breath sounds, no rales, no wheezing Cardiovascular: Normal rate, normal rhythm, no murmurs, no gallops, no rubs GI: Soft, nondistended, normal bowel sounds, nontender, no splenomegaly, no hepatomegaly, no mass, no rebound, no guarding : No costovertebral angle tenderness Musculoskeletal: No edema, no tenderness, no deformities. Back- no tenderness Integument: Well hydrated, no rash, Digits and nails inspection normal Lymphatic: No lymphadenopathy noted Neurologic: Alert & oriented x 3, CN 2-12 normal, normal motor function, normal sensory function, no focal deficits noted Exam as above PATH LABS Labs from March 30 showed iron 37 iron saturation 14% ferritin 46 vitamin B12 2912 hemoglobin 11.5 Labs from May 24 showed hemoglobin 11.6 iron 52 saturation 21% Labs from June 08 showed hemoglobin 11.8 MCV 86.3 vitamin B12 496. Labs from March 03 showed creatinine 0.7 AST 13 ALT 19 iron 39 iron saturation 15% ferritin 112WBC 16.9 hemoglobin 12.5 platelet 321,000 neutrophil 90% lymphocyte 3.3% Labs from September 08 showed WBC 6 hemoglobin 12.9 platelet 271,000 iron 127 saturation 49% ferritin 56 B12 987 Labs from January 11 showed vitamin B12 734 iron 35 saturation 13 ferritin 34 hemoglobin 11.2 Labs from May 03 showed hemoglobin 13.2 iron 130 saturation 47 ferritin 49 B12 562 Assessment: Plan: Patient Active Problem List Diagnosis Date Noted Chronic anemia 03/30/2022 Iron deficiency anemia. He denies any further hematuria. Patient decided to take iron 3 times a dayinstead of iron infusion. Labs showed significant improvement in hemoglobin and iron studies. We will reduce the oral iron totwice a day. He will continue vitamin B12. Follow-up in 6 months. Vitamin B12 deficiency. B12 level normal. He will continue vitamin B12 1 mg daily. Hematuria. Resolved. Follow-up in 6 months. 05/07/2024 Av Melendez MD L HOLE ROUGH OPENER documented in this encounter Plan of Treatment Upcoming Encounters Date Type Department Care Team (Late st Contact Info) Description 11/05/2024 1:00 PM CDT Office Visit [facility] Oncology and Hematology - Eusebio [address] [facility] [address] [place] [address] Av Melendez MD [address] [facility] [address] [place] [address] Scheduled Orders Name Type Priority Associated Diagnoses Orde r Schedule CBC WITHOUT DIFFERENTIAL Lab Stat Chronic anemia Expected: 11/04/2024, Expires: 05/07/2025 FERRITIN Lab Routine Chronic anemia Expected: 11/04/2024, Expires: 05/07/2025 IRON, TIBC, AND PERCENT SATURATION Lab Routine Chronic anemia Expected: 11/04/2024, Expires: 05/07/2025 VITAMIN B12 AND FOLATE Lab Routine Chronic anemia Expected: 11/04/2024, Expires: 05/07/2025 documented as of this encounter Visit Diagnoses Diagnosis Chronic anemia- Primary Anemia, unspecified documented in this encounter Care Teams Print Machine Operator Relationship Specialty Start Date End Date Meliton Washburn MD PCP - General Family Practice 03/30/22 documented as of this encounter
--- OUTSIDE RECORDS SUMMARY | 2024-06-06 22:35 | XMS_ITS | Encounter Summary ---
Author Organization [facility] [employer] [facility] Address [address] [place] [address] Care Team Providers Care Real Estate Investor Name Role Phone Meliton Washburn MD Primary Care Provider +1- [phone] Encounter Details Date Type Department Care Team ([facility] Contact Info) Description 05/04/2024 Orders Only [facility] Oncology and Hematology - Eusebio Victorino [address] [place] [address] Av Melendez MD [address] [place] [address] [employer] [address] [place] [address] Social History Tobacco Use Types Packs/Day Years [...] Upcoming Encounters Date Type Department Care Team ([facility] Contact Info) Description 11/05/2024 1:00 PM CDT Office Visit [facility] Oncology and Hematology - Eusebio Chintan [address] [place] [address] Av Melendez MD [address] [place] [address] [employer] [address] [place] [address] documented as of this encounter Procedures Procedure Name Priority Date/Time Associated Diagnosis Comments CBC WITH DIFFERENTIAL Routine 05/03/2024 12:30 PM WILDLIFE PROTECTOR IRON LEVEL Routine 05/03/2024 12:21 PM WILDLIFE PROTECTOR documented in this encounter Results * CBC WITH DIFFERENTIAL (05/03/2024 12:30 PM WILDLIFE PROTECTOR) Blood Av Melendez MD HEMATOLOGY ORDERABLE S * IRON LEVEL (05/03/2024 12:21 PM WILDLIFE PROTECTOR) Blood Av Melendez MD CHEMISTRY ORDERABLES documented in this encounter Visit Diagnoses Not on filedocumented in this encounter Care Teams Real Estate Investor Relationship Specialty Start Date End Date Meliton Washburn MD PCP - General Family Practice 03/30/22 documented as of this encounter
--- OUTSIDE RECORDS SUMMARY | 2024-06-06 22:36 | XMS_ITS | Encounter Summary ---
Author Organization [facility] Address [address] [place] [address] Care Team Providers Care Furnace Utility Operator Name Role Phone Meliton Washburn MD Primary Care Provider +1- [phone] Encounter Details Date Type Department Care Team (Late st Contact Info) Description 02/09/2024 External Device Data STL ABSTRACTION Provider, Abstract [...] Description 11/05/2024 1:00 PM CDT Office Visit [facility] Oncology and Hematology - Eusebio [address] [place] [address] [address] [place] [phone] [place] [address] [place] [address] [address] [place] [address] documented as of this encounter Visit Diagnoses Not on filedocumented in this encounter Care Teams Furnace Utility Operator Relationship Specialty Start Date End Date Meliton Washburn MD PCP - General Family Practice 03/30/22 documented as of this encounter
--- OUTSIDE RECORDS SUMMARY | 2024-06-06 22:36 | XMS_ITS | Encounter Summary ---
Author Organization [facility] Address [address] [place] [address] Care Team Providers Care Quality Assurance Calibrator Name Role Phone Meliton Washburn MD Primary Care Provider +1- [phone] Encounter Details Date Type Department Care Team [...] Description 11/05/2024 1:00 PM CDT Office Visit [facility] Oncology and Hematology - Eusebio [address] [place] [address] [address] [place] [phone] [place] [address] [place] [address] [address] [place] [address] documented as of this encounter Visit Diagnoses Not on filedocumented in this encounter Care Teams Quality Assurance Calibrator Relationship Specialty Start Date End Date Meliton Washburn MD PCP - General Family Practice 03/30/22 documented as of this encounter
--- OUTSIDE RECORDS SUMMARY | 2024-06-06 22:36 | XMS_ITS | Encounter Summary ---
Author Organization [facility] Address [address] [place] [address] Care Team Providers Care Events Specialist Name Role Phone Meliton Washburn MD Primary Care Provider +1- [phone] Encounter Details Date Type Department Care Team (Late st Contact Info) Description 02/14/2024 External Device Data STL ABSTRACTION Provider, Abstract [...] Description 11/05/2024 1:00 PM CDT Office Visit [facility] Oncology and Hematology - Eusebio [address] [place] [address] [address] [place] [phone] [place] [address] [place] [address] [address] [place] [address] documented as of this encounter Visit Diagnoses Not on filedocumented in this encounter Care Teams Events Specialist Relationship Specialty Start Date End Date Meliton Washburn MD PCP - General Family Practice 03/30/22 documented as of this encounter
--- OUTSIDE RECORDS SUMMARY | 2024-06-06 22:36 | XMS_ITS | Encounter Summary ---
Author Organization [facility] Address [address] [place] [address] Care Team Providers Care Mortgage Originator Name Role Phone Meliton Washburn MD Primary Care Provider +1- [phone] Encounter Details Date Type Department Care Team [...] Description 11/05/2024 1:00 PM CDT Office Visit [facility] Oncology and Hematology - Eusebio [address] [place] [address] [address] [place] [phone] [place] [address] [place] [address] [address] [place] [address] documented as of this encounter Visit Diagnoses Not on filedocumented in this encounter Care Teams Mortgage Originator Relationship Specialty Start Date End Date Meliton Washburn MD PCP - General Family Practice 03/30/22 documented as of this encounter
--- OUTSIDE RECORDS SUMMARY | 2024-06-06 22:36 | XMS_ITS | Encounter Summary ---
Author Organization [facility] Address [address] [place] [address] Care Team Providers Care Radiology Technician Name Role Phone Meliton Washburn MD Primary Care Provider +1- [phone] Encounter Details Date Type Department Care Team (Late st Contact Info) Description 01/31/2024 External Device Data STL ABSTRACTION Provider, Abstract [...] [facility] - Eusebio [address] [place] [address] [address] [place] [phone] [place] [address] [place] [address] [address] [place] [address] documented as of this encounter Visit Diagnoses Not on filedocumented in this encounter Care Teams Radiology Technician Relationship Specialty Start Date End Date Meliton Washburn MD PCP - General Family Practice 03/30/22 documented as of this encounter
--- OUTSIDE RECORDS SUMMARY | 2024-06-06 22:37 | XMS_ITS | Encounter Summary ---
Author Organization [facility] Address [address] [place] [address] Care Team Providers Care Housing Assistant Property Manager Name Role Phone Meliton Washburn MD Primary Care Provider +1- [phone] Encounter Details Date Type Department Care Team [...] Description 11/05/2024 1:00 PM CDT Office Visit [facility] Oncology and Hematology - Eusebio [address] [place] [address] [address] [place] [phone] [place] [address] [place] [address] [address] [place] [address] documented as of this encounter Visit Diagnoses Not on filedocumented in this encounter Care Teams Housing Assistant Property Manager Relationship Specialty Start Date End Date Meliton Washburn MD PCP - General Family Practice 03/30/22 documented as of this encounter
--- OUTSIDE RECORDS SUMMARY | 2024-06-06 22:38 | XMS_ITS | Encounter Summary ---
Author Organization [facility] [employer] [facility] Address [address] [place] [address] Care Team Providers Care Dental Technician Metal Name Role Phone Meliton Washburn MD Primary Care Provider +1- [phone] Encounter Details Date Type Department Care Team ([facility] Contact Info) Description 01/13/2024 Orders Only [facility] Oncology and Hematology Eusebio Victorino [address] [place] [address] Av Melendez MD [address] [place] [address] [employer] [address] [place] [address] Social History Tobacco Use Types Packs/Day [...] Upcoming Encounters Date Type Department Care Team ([facility] Contact Info) Description 11/05/2024 1:00 PM CDT Office Visit [facility] Oncology and Hematology - Eusebio Chintan [address] [place] [address] Av Melendez MD [address] [place] [address] [employer] [address] [place] [address] documented as of this encounter Procedures Procedure Name Priority Date/Time Associated Diagnosis Comments BASIC METABOLIC PANEL Routine 01/12/2024 12:22 PM CDT CBC WITH DIFFERENTIAL Routine 01/12/2024 10:31 AM CDT documented in this encounter Results * BASIC METABOLIC PANEL (01/12/2024 12:22 PM CDT) Blood Av Melendez MD CHEMISTRY ORDERABLES * CBC WITH DIFFERENTIAL (01/12/2024 10:31 AM CDT) Blood Av Melendez MD HEMATOLOGY ORDERABLE S documented in this encounter Visit Diagnoses Not on filedocumented in this encounter Care Teams Dental Technician Metal Relationship Specialty Start Date End Date Meliton Washburn MD PCP - General Family Practice 03/30/22 documented as of this encounter
--- OUTSIDE RECORDS SUMMARY | 2024-06-06 22:38 | XMS_ITS | Encounter Summary ---
Author Organization [facility] [employer] [facility] Address [address] [place] [address] Care Team Providers Care Customer Strategy Manager Name Role Phone Meliton Washburn MD Primary Care Provider +1- [phone] Reason for Visit * Reason Comments Follow Up Encounter Details Date Type Department Care Team ([facility] st Contact Info) Description 09/16/2023 12:00 PM CDT Office Visit [facility] Oncology and Hematology - Eusebio [address] [place] [address] [address] [place] [address] Av Melendez MD [address] [facility] [address] [place] [address] Chronic anemia (Primary Dx) Social [...] Sign Reading Time Taken Comments Blood Pressure 152/81 09/16/2023 11:59 AM CDT Pulse 67 09/16/2023 11:56 AM CDT Temperature 36.3 ??C (97.4 ??F) 09/16/2023 1 1:56 AM CDT Respiratory Rate 15 09/16/2023 11:5 6 AM CDT Oxygen Saturation 97% 09/16/2023 11: 56 AM CDT Inhaled Oxygen Concentration - - Weight 85.6 kg (188 lb 12.8 oz) 024 11:56 AM CDT Height - - Body Mass Index 25.61 03/30/2022 2:41 PM CDT documented in this encounter Progress Notes * Av Melendez MD - 09/16/2023 1:02 PM CDT HEMATOLOGY / ONCOLOGY PROGRESS NOTE Patient Identification: Name: Meliton Delacruz Age: 83 y.o. Sex: male : 1940 DIAGNOSIS Iron deficiency anemia CURRENT TREATMENT Ferrous sulfate 3 times a day. TREATMENT HISTORY SUBJECTIVE Patient came to the office for follow-up visit. He denies any chest pain or shortness of breath. Denies any bleeding and bruising. He has intermittent constipation. No other new complaints. Review of system Constitutional: Patient did not mention fevers, sweats, complain of tiredness and fatigue HEENT: Patient did not mention sinus congestion, [...] 127 saturation 49% ferritin 56 B12 987 Assessment: Plan: Patient Active Problem List Diagnosis Date Noted Chronic anemia 03/30/2022 Iron deficiency anemia. He denies any further hematuria. Patient decided to take iron 3 times a dayinstead of iron infusion. Labs reviewed. Hemoglobin has improved slightly. Iron saturation is on the high side. Will reduce the oral iron to 1 tablet twice a day along with vitamin C 500 mg daily. Vitamin B12 deficiency. She will continue vitamin B12 1 mg daily. Hematuria resolved. Follow-up in 4 months. TOBACCO COUNSELING He is not a tobacco/nicotine user. 09/16/2023 Av Melendez MD documented in this encounter Plan of Treatment Upcoming Encounters Date Type Department Care Team (Late st Contact Info) Description 11/05/2024 1:00 PM CDT Office Visit [facility] Oncology and Hematology - Eusebio [address] [facility] [address] [place] [address] Av Melendez MD [address] [facility] [address] [place] [address] Scheduled Orders Name Type Priority Associated Diagnoses Orde r Schedule CBC WITH DIFFERENTIAL Lab Stat Chronic anemia Expected: 01/06/2024, Expires: 09/15/2024 BASIC METABOLIC PANEL Lab Stat Chronic anemia Expected: 01/06/2024, Expires: 09/15/2024 FERRITIN Lab Routine Chronic anemia Expected: 01/06/2024, Expires: 09/15/2024 IRON, TIBC, AND PERCENT SATURATION Lab Routine Chronic anemia Expected: 01/06/2024, Expires: 09/15/2024 VITAMIN B12 AND FOLATE Lab Routine Chronic anemia Expected: 01/06/2024, Expires: 09/15/2024 documented as of this encounter Visit Diagnoses Diagnosis Chronic anemia- Primary Anemia, unspecified documented in this encounter Care Teams Customer Strategy Manager Relationship Specialty Start Date End Date Meliton Washburn MD PCP - General Family Practice 03/30/22 documented as of this encounter
--- OUTSIDE RECORDS SUMMARY | 2024-06-06 22:38 | XMS_ITS | Encounter Summary ---
Author Organization [facility] Address [address] [place] [address] Care Team Providers Care Icu Manager Name Role Phone Meliton Washburn MD Primary Care Provider +1- [phone] Encounter Details Date Type Department Care Team (Late st Contact Info) Description 12/06/2023 External Device Data STL ABSTRACTION Provider, Abstract [...] Description 11/05/2024 1:00 PM CDT Office Visit [facility] Oncology and Hematology - Eusebio [address] [place] [address] [address] [place] [phone] [place] [address] [place] [address] [address] [place] [address] documented as of this encounter Visit Diagnoses Not on filedocumented in this encounter Care Teams Icu Manager Relationship Specialty Start Date End Date Meliton Washburn MD PCP - General Family Practice 03/30/22 documented as of this encounter
--- OUTSIDE RECORDS SUMMARY | 2024-06-06 22:38 | XMS_ITS | Encounter Summary ---
Author Organization [facility] Address [address] [place] [address] Care Team Providers Care Identity Access Management Architect Name Role Phone Meliton Washburn MD Primary Care Provider +1- [phone] Encounter Details Date Type Department Care Team (Late st Contact Info) Description 01/03/2024 External Device Data STL ABSTRACTION Provider, Abstract [...] [facility] Oncology and Hematology - Eusebio [address] [place] [address] [address] [place] [phone] [place] [address] [place] [address] [address] [place] [address] documented as of this encounter Visit Diagnoses Not on filedocumented in this encounter Care Teams Identity Access Management Architect Relationship Specialty Start Date End Date Meliton Washburn MD PCP - General Family Practice 03/30/22 documented as of this encounter
--- OUTSIDE RECORDS SUMMARY | 2024-06-06 22:38 | XMS_ITS | Encounter Summary ---
Author Organization [facility] Address [address] [place] [address] Care Team Providers Care Meter Calibrator Name Role Phone Meliton Washburn MD Primary Care Provider +1- [phone] Encounter Details Date Type Department Care Team (Late st Contact Info) Description 08/23/2023 External Device Data STL ABSTRACTION Provider, Abstract [...] Description 11/05/2024 1:00 PM CDT Office Visit [facility] Oncology and Hematology - Eusebio [address] [place] [address] [address] [place] [phone] [place] [address] [place] [address] [address] [place] [address] documented as of this encounter Visit Diagnoses Not on filedocumented in this encounter Care Teams Meter Calibrator Relationship Specialty Start Date End Date Meliton Washburn MD PCP - General Family Practice 03/30/22 documented as of this encounter
--- OUTSIDE RECORDS SUMMARY | 2024-06-06 22:38 | XMS_ITS | Encounter Summary ---
Author Organization [facility] Address [address] [place] [address] Care Team Providers Care Store Person Name Role Phone Meliton Washburn MD Primary Care Provider +1- [phone] Encounter Details Date Type Department Care Team (Late st Contact Info) Description 08/05/2023 External Device Data STL ABSTRACTION Provider, Abstract [...] Description 11/05/2024 1:00 PM CDT Office Visit [facility] Oncology and Hematology - Eusebio [address] [place] [address] [address] [place] [phone] [place] [address] [place] [address] [address] [place] [address] documented as of this encounter Visit Diagnoses Not on filedocumented in this encounter Care Teams Store Person Relationship Specialty Start Date End Date Meliton Washburn MD PCP - General Family Practice 03/30/22 documented as of this encounter
--- OUTSIDE RECORDS SUMMARY | 2024-06-06 22:38 | XMS_ITS | Encounter Summary ---
Author Organization [facility] [employer] [facility] Address [address] [place] [address] Care Team Providers Care Restaurant Hourly Manager Name Role Phone Meliton Washburn MD Primary Care Provider +1- [phone] Encounter Details Date Type Department Care Team ([facility] Contact Info) Description 09/12/2023 Orders Only [facility] Oncology and Hematology - Eusebio [address] [place] [address] Av Melendez MD [address] [place] [address] [address] [place] [address] Social History Tobacco Use Types Packs/Day [...] Upcoming Encounters Date Type Department Care Team ([facility] Contact Info) Description 11/05/2024 1:00 PM CDT Office Visit [facility] Oncology and Hematology - Eusebio [address] [place] [address] Av Melendez MD [address] [place] [address] [address] [place] [address] documented as of this encounter Procedures Procedure Name Priority Date/Time Associated Diagnosis Comments COMPREHENSIVE METABOLIC PANEL Routine 09/09/2023 8:36 AM CDT documented in this encounter Results * COMPREHENSIVE METABOLIC PANEL (09/09/2023 8:36 AM CDT) Blood Av Melendez MD CHEMISTRY ORDERABLES documented in this encounter Visit Diagnoses Not on filedocumented in this encounter Care Teams Restaurant Hourly Manager Relationship Specialty Start Date End Date Meliton Washburn MD PCP - General Family Practice 03/30/22 documented as of this encounter
--- OUTSIDE RECORDS SUMMARY | 2024-06-06 22:39 | XMS_ITS | Encounter Summary ---
Author Organization [facility] Address [address] [place] [address] Care Team Providers Care Salon Assistant Name Role Phone Meliton Washburn MD Primary Care Provider +1- [phone] Encounter Details Date Type Department Care Team (Late st Contact Info) Description 07/16/2023 External Device Data STL ABSTRACTION Provider, Abstract [...] [facility] Oncology and Hematology - Eusebio [address] [place] [address] [address] [place] [phone] [place] [address] [place] [address] [address] [place] [address] documented as of this encounter Visit Diagnoses Not on filedocumented in this encounter Care Teams Salon Assistant Relationship Specialty Start Date End Date Meliton Washburn MD PCP - General Family Practice 03/30/22 documented as of this encounter
--- OUTSIDE RECORDS SUMMARY | 2024-06-06 22:40 | XMS_ITS | Encounter Summary ---
Author Organization [facility] Address [address] [place] [address] Care Team Providers Care Golf Shoe Spike Assembler Name Role Phone Meliton Washburn MD Primary Care Provider +1- [phone] Encounter Details Date Type Department Care Team (Late st Contact Info) Description 06/01/2023 External Device Data STL ABSTRACTION Provider, Abstract [...] Description 11/05/2024 1:00 PM CDT Office Visit [facility] Oncology and Hematology - Eusebio [address] [place] [address] [address] [place] [phone] [place] [address] [place] [address] [address] [place] [address] documented as of this encounter Visit Diagnoses Not on filedocumented in this encounter Care Teams Golf Shoe Spike Assembler Relationship Specialty Start Date End Date Meliton Washburn MD PCP - General Family Practice 03/30/22 documented as of this encounter
--- OUTSIDE RECORDS SUMMARY | 2024-06-06 22:40 | XMS_ITS | Encounter Summary ---
Author Organization [facility] Address [address] [place] [address] Care Team Providers Care Machine Repairer Name Role Phone Meliton Washburn MD Primary Care Provider +1- [phone] Encounter Details Date Type Department Care Team (Late st Contact Info) Description 05/24/2023 External Device Data STL ABSTRACTION Provider, Abstract [...] Description 11/05/2024 1:00 PM CDT Office Visit [facility] Oncology and Hematology - Eusebio [address] [place] [address] [address] [place] [phone] [place] [address] [place] [address] [address] [place] [address] documented as of this encounter Visit Diagnoses Not on filedocumented in this encounter Care Teams Machine Repairer Relationship Specialty Start Date End Date Meliton Washburn MD PCP - General Family Practice 03/30/22 documented as of this encounter
--- OUTSIDE RECORDS SUMMARY | 2024-06-06 22:40 | XMS_ITS | Encounter Summary ---
Author Organization [facility] Address [address] [place] [address] Care Team Providers Care Global Marketing Intern Name Role Phone Meliton Washburn MD Primary Care Provider +1- [phone] Encounter Details Date Type Department Care Team (Late st Contact Info) Description 07/13/2023 External Device Data STL ABSTRACTION Provider, Abstract [...] Description 11/05/2024 1:00 PM CDT Office Visit [facility] Oncology and Hematology - Eusebio [address] [place] [address] [address] [place] [phone] [place] [address] [place] [address] [address] [place] [address] documented as of this encounter Visit Diagnoses Not on filedocumented in this encounter Care Teams Global Marketing Intern Relationship Specialty Start Date End Date Meliton Washburn MD PCP - General Family Practice 03/30/22 documented as of this encounter
--- OUTSIDE RECORDS SUMMARY | 2024-06-06 22:40 | XMS_ITS | Encounter Summary ---
Author Organization [facility] Address [address] [place] [address] Care Team Providers Care Laboratory Technology Teacher Name Role Phone Meliton Washburn MD Primary Care Provider +1- [phone] Encounter Details Date Type Department Care Team (Late st Contact Info) Description 07/15/2023 External Device Data STL ABSTRACTION Provider, Abstract [...] [facility] On[facility] - Eusebio [address] [place] [address] [address] [place] [phone] [place] [address] [place] [address] [address] [place] [address] documented as of this encounter Visit Diagnoses Not on filedocumented in this encounter Care Teams Laboratory Technology Teacher Relationship Specialty Start Date End Date Meliton Washburn MD PCP - General Family Practice 03/30/22 documented as of this encounter
--- OUTSIDE RECORDS SUMMARY | 2024-06-06 22:40 | XMS_ITS | Encounter Summary ---
Author Organization [facility] [employer] [facility] Address [address] [place] [address] Care Team Providers Care Senior Cognos Developer Name Role Phone Meliton Washburn MD Primary Care Provider +1- [phone] Reason for Visit * Reason Comments Follow Up Encounter Details Date Type Department Care Team ([facility] st Contact Info) Description 03/10/2023 1:15 PM CDT Office Visit [facility] Oncology and Hematology - Eusebio [address] [place] [address] [address] [place] [address] vA Melendez MD [address] [facility] [address] [place] [address] Chronic anemia (Primary Dx) Social [...] Sign Reading Time Taken Comments Blood Pressure 137/66 03/10/2023 1:04 PM CDT Pulse 76 03/10/2023 1:02 PM CDT Temperature 36.4 ??C (97.6 ??F) 03/10/2023 1:02 PM CD T Respiratory Rate 10 03/10/2023 1:02 PM CDT Oxygen Saturation 98% 03/10/2023 1:02 PM CDT Inhaled Oxygen Concentration - - Weight 84.4 kg (186 lb) 03/10/2023 1:02 PM CDT Height - - Body Mass Index 25.23 03/30/2022 2:41 PM CDT documented in this encounter Progress Notes * Av Melendez MD - 03/10/2023 1:38 PM CDT HEMATOLOGY / ONCOLOGY PROGRESS NOTE Patient Identification: Name: Meliton Delacruz Age: 82 y.o. Sex: male : 1940 DIAGNOSIS Iron deficiency anemia CURRENT TREATMENT Ferrous sulfate 3 times a day. TREATMENT HISTORY SUBJECTIVE Patient came to the office for follow-up visit. He has been taking oral iron mostly 2 times a day. He has intermittent constipation. Denies any excessive tiredness and fatigue. No bleeding and bruising. No other new complaints. Review of system Constitutional: Patient did not mention fevers, sweats, complain of mild tiredness and fatigue HEENT: Patient did not mention sinus congestion, hearing or vision problems Respiratory: Patient did not mention cough, dyspnea, wheeze Cardiovascular: Patient did not mention chest pain, exertional chest pressure/discomfort, nausea, syncope, shortness of breath GI: Patient did not mention constipation, diarrhea, dsyphagia, reflux symptoms, vomiting, melena : Patient did not mention dysuria, frequency, incontinence, urgency, intermittent hematuria Integumentary system: no lymphadenopathy, sweats, flushing Musculoskeletal: Patient not mention: myalgia, arthralgia Neurological: Patient did not mention blurry or disturbed vision, numbness/weakness, dizziness Skin: No lumps, bumps or rashes. 12 point review system was reviewed Objective: Vital signs in [...] 12.5 platelet 321,000 neutrophil 90% lymphocyte 3.3% Assessment: Plan: Patient Active Problem List Diagnosis Date Noted Chronic anemia 03/30/2022 Iron deficiency anemia. He denies any further hematuria. Patient decided to take iron 3 times a dayinstead of iron infusion. Lab noted. Hemoglobin has improved. Iron studies stable other than slight low iron saturation and serum iron level. I have recommended him to take oral iron 2 in the morning and 1 in the evening and add vitamin C 500 mg daily. We will repeat labs again in 6 months. Vitamin B12 deficiency. He will continue vitamin B12 1 mg daily. Hematuria. Resolved. 03/10/2023 Av Melendez MD documented in this encounter Plan of Treatment Upcoming Encounters Date Type Department Care Team (Late st Contact Info) Description 11/05/2024 1:00 PM CDT Office Visit [facility] Oncology and Hematology - Eusebio [address] [facility] [address] [place] [address] Av Melendez MD [address] [facility] [address] [place] [address] documented as of this encounter Visit Diagnoses Diagnosis Chronic anemia- Primary Anemia, unspecified documented in this encounter Care Teams Senior Cognos Developer Relationship Specialty Start Date End Date Meliton Washburn MD PCP - General Family Practice 03/30/22 documented as of this encounter
--- OUTSIDE RECORDS SUMMARY | 2024-06-06 22:40 | XMS_ITS | Encounter Summary ---
Author Organization [facility] Address [address] [place] [address] Care Team Providers Care Replanting Machine Crewman Name Role Phone Meliton Washburn MD Primary Care Provider +1- [phone] Encounter Details Date Type Department Care Team (Late st Contact Info) Description 07/14/2023 External Device Data STL ABSTRACTION Provider, Abstract [...] Description 11/05/2024 1:00 PM CDT Office Visit [facility] Oncology and Hematology - Eusebio [address] [place] [address] [address] [place] [phone] [place] [address] [place] [address] [address] [place] [address] documented as of this encounter Visit Diagnoses Not on filedocumented in this encounter Care Teams Replanting Machine Crewman Relationship Specialty Start Date End Date Meliton Washburn MD PCP - General Family Practice 03/30/22 documented as of this encounter
--- OUTSIDE RECORDS SUMMARY | 2024-06-06 22:41 | XMS_ITS | Encounter Summary ---
Author Organization [facility] [employer] [facility] Address [address] [place] [address] Care Team Providers Care Lead Database Developer Name Role Phone Meliton Washburn MD Primary Care Provider +1- [phone] Encounter Details Date Type Department Care Team ([facility] Contact Info) Description 03/03/2023 Orders Only [facility] Oncology and Hematology - Eusebio [facility] [address] [place] [address] Av Melendez MD [address] [place] [address] [facility] [address] [place] [address] Social History Tobacco Use Types Packs/Day [...] Upcoming Encounters Date Type Department Care Team ([facility] Contact Info) Description 11/05/2024 1:00 PM CDT Office Visit [facility] Oncology and Hematology - Eusebio [address] [place] [address] Av Melendez MD [address] [place] [address] [facility] [place] [address] documented as of this encounter Procedures Procedure Name Priority Date/Time Associated Diagnosis Comments IRON, TIBC, AND PERCENT SATURATION Routine 03/03/2023 3:58 PM CDT COMPREHENSIVE METABOLIC PANEL Routine 03/03/2023 12:42 PM CDT documented in this encounter Results * IRON, TIBC, AND PERCENT SATURATION (03/03/2023 3:58 PM CDT) Blood Av Melendez MD CHEMISTRY ORDERABLES * COMPREHENSIVE METABOLIC PANEL (03/03/2023 12:42 PM CDT) Blood vA Melendez MD CHEMISTRY ORDERABLES documented in this encounter Visit Diagnoses Not on filedocumented in this encounter Care Teams Lead Database Developer Relationship Specialty Start Date End Date Meliton Washburn MD PCP - General Family Practice 03/30/22 documented as of this encounter
--- OUTSIDE RECORDS SUMMARY | 2024-06-06 22:41 | XMS_ITS | Encounter Summary ---
Author Organization [facility] Address [address] [facility] Attn: Epic Prelude ADT [place] [address] Care Team Providers Care Certified Nurses' Aide Name Role Phone Meliton Washburn MD Primary Care Provider +1- [phone] Encounter Details Date Type Department Care Team (Latest Contact Info) Description 09/09/2022 Travel Social History Tobacco Use Types Packs/Day Years Used Date Smoking Tobacco: Never Smokeless Tobacco: Never Alcohol Use Standard Drinks/Week Comments Never 0 (1 standard drink = 0.6 oz pur e alcohol) Sex and Gender Information Value Date Recorded Sex Assigned at Not on file Gender Identity Not on file Sexual Orientation Not on file COVID-19 Exposure Response Date Recorded In the last 10 days, have yo u been in contact with someone who was confirmed or suspected to have Coronavirus/COVID-19? No / Unsure 09/09/2022 1:24 PM CDT documented as of this encounter Plan of Treatment Upcoming Encounters Date Type Department Care Team (Late st Contact Info) Description 11/05/2024 1:00 PM CDT Office Visit [facility] Oncology and Hematology - Eusebio [address] [facility] [address] [place] [address] Av Melendez MD [address] [facility] [address] [place] [address] documented as of this encounter Visit Diagnoses Not on filedocumented in this encounter Care Teams Certified Nurses' Aide Relationship Specialty Start Date End Date Meliton Washburn MD PCP - General Family Practice 10/11/22 documented as of this encounter
--- OUTSIDE RECORDS SUMMARY | 2024-06-06 22:41 | XMS_ITS | Encounter Summary ---
Author Organization [facility] [employer] [facility] Address [address] [place] [address] Care Team Providers Care Project Officer Name Role Phone Meliton Washburn MD Primary Care Provider +1- [phone] Reason for Visit * Reason Comments Follow Up Encounter Details Date Type Department Care Team ([facility] st Contact Info) Description 09/09/2022 1:45 PM CDT Office Visit [facility] Oncology and Hematology - Eusebio [address] [place] [address] Dax Matos MD [address] [place] [address] Chronic anemia (Primary Dx) Social [...] PM CDT documented as of this encounter Last Filed Vital Signs Vital Sign Reading Time Taken Comments Blood Pressure 147/63 09/09/2022 1:35 PM CDT Pulse 61 09/09/2022 1:33 PM CDT Temperature 36.2 ??C (97.1 ??F) 09/09/2022 1:33 PM CD T Respiratory Rate 10 09/09/2022 1:33 PM CDT Oxygen Saturation 100% 09/09/2022 1:33 PM CDT Inhaled Oxygen Concentration - - Weight - - Height - - Body Mass Index - - documented in this encounter Progress Notes * Dax Matos MD - 09/09/2022 1:52 PM CDT HEMATOLOGY / ONCOLOGY PROGRESS NOTE Patient Identification: Name: Meliton Delacruz Age: 82 y.o. Sex: male : 1940 DIAGNOSIS Iron deficiency anemia CURRENT TREATMENT Ferrous sulfate 3 times a day. TREATMENT HISTORY SUBJECTIVE Patient came into the office for follow-up visit. He has some mild tiredness and fatigue. Denies any bleeding including melena hematochezia. Denies any further hematuria. No other new complaint. Review of system Constitutional: Patient did not [...] No lumps, bumps or rashes. 12 point view system was reviewed and as above Objective: Vital signs in last 24 hours: [...] normal sensory function, no focal deficits noted PATH LAB[facility] Labs from March 30 showed iron 37 iron saturation 14% ferritin 46 vitamin B12 2912 hemoglobin 11.5 Labs from May 24 showed hemoglobin 11.6 iron 52 saturation 21% Labs from September 02 show a hemoglobin of 12.3 with an MCV of 88 white count of 7.9 platelet count 269k Iron of 53 with a saturation of 18% and ferritin of 40 Assessment: Plan: Patient Active Problem List Diagnosis Date Noted Chronic anemia 03/30/2022 Iron deficiency anemia. He denies any further hematuria. Patient decided to take iron 3 times a dayinstead of iron infusion. Hemoglobin has remained stable at 12.3. Iron studies have improved. He will continue oral iron 3 times a day. Return in 6 months TOBACCO COUNSELING He is not a tobacco user. 09/09/2022 Dax Matos MD documented in this encounter Plan of Treatment Upcoming Encounters Date Type Department Care Team (Late st Contact Info) Description 11/05/2024 1:00 PM CDT Office Visit [facility] Oncology and Hematology - [place] [address] [place] [address] [address] [place] [address] Av Melendez MD [address] [facility] [address] [place] [address] documented as of this encounter Visit Diagnoses Diagnosis Chronic anemia- Primary Anemia, unspecified documented in this encounter Care Teams Project Officer Relationship Specialty Start Date End Date Meliton Washburn MD PCP - General Family Practice 03/30/22 documented as of this encounter
--- OUTSIDE RECORDS SUMMARY | 2024-06-06 22:42 | XMS_ITS | Encounter Summary ---
Author Organization [facility] Address [address] [facility] Attn: Epic Prelude ADT [place] [address] Care Team Providers Care Energy And Sustainability Manager Name Role Phone Meliton Washburn MD Primary Care Provider +1- [phone] Encounter Details Date Type Department Care Team (Latest Contact Info) Description 06/08/2022 Travel Social History Tobacco Use Types Packs/Day [...] suspected to have Coronavirus/COVID-19? No / Unsure 06/08/2022 10:46 AM LINE INSTALLER documented as of this encounter Plan of Treatment Upcoming Encounters Date Type Department Care Team (Late st Contact Info) Description 11/05/2024 1:00 PM CDT Office Visit [facility] Oncology and Hematology - Eusebio [address] [facility] [address] [place] [address] Av Melendez MD [address] [facility] [address] [place] [address] documented as of this encounter Visit Diagnoses Not on filedocumented in this encounter Care Teams Energy And Sustainability Manager Relationship Specialty Start Date End Date Meliton Washburn MD PCP - General Family Practice 03/30/22 documented as of this encounter
--- OUTSIDE RECORDS SUMMARY | 2024-06-06 22:42 | XMS_ITS | Encounter Summary ---
Author Organization [facility] Address [address] [facility] Attn: Epic Prelude ADT [place] [address] Care Team Providers Care Dye Tank Tender Name Role Phone Meliton Washburn MD Primary Care Provider +1- [phone] Encounter Details Date Type Department Care Team (Latest Contact Info) Description 06/11/2022 Travel Social History Tobacco Use Types Packs/Day [...] suspected to have Coronavirus/COVID-19? No / Unsure 06/11/2022 11:00 AM GOLD BURNISHER documented as of this encounter Plan of Treatment Upcoming Encounters Date Type Department Care Team (Late st Contact Info) Description 11/05/2024 1:00 PM CDT Office Visit [facility] Oncology and Hematology - Eusebio [address] [facility] [address] [place] [address] vA Melendez MD [address] [facility] [address] [place] [address] documented as of this encounter Visit Diagnoses Not on filedocumented in this encounter Care Teams Dye Tank Tender Relationship Specialty Start Date End Date Meliton Washburn MD PCP - General Family Practice 03/30/22 documented as of this encounter
--- OUTSIDE RECORDS SUMMARY | 2024-06-06 22:42 | XMS_ITS | Encounter Summary ---
Author Organization [facility] [employer] [facility] Address [address] [place] [address] Care Team Providers Care Underground Mine Superintendent Name Role Phone Meliton Washburn MD Primary Care Provider +1- [phone] Encounter Details Date Type Department Care Team (Late st Contact Info) Description 06/11/2022 11:00 AM NEWSAGENT Telephone Check Up [facility] Oncology and Hematology - Eusebio [address] [place] [address] [address] [place] [address] vA Melendez MD [address] [facility] [address] [place] [address] Chronic anemia (Primary Dx) Social [...] Coronavirus/COVID-19? No / Unsure 06/11/2022 11:00 AM NEWSAGENT documented as of this encounter Progress Notes * Av Melendez MD - 06/11/2022 11:13 AM CST HEMATOLOGY / ONCOLOGY PROGRESS NOTE Patient Identification: Name: Meliton Delacruz Age: 82 y.o. Sex: male : 1940 DIAGNOSIS Iron deficiency anemia CURRENT TREATMENT Ferrous sulfate 3 times a day. TREATMENT HISTORY SUBJECTIVE This is a phone visit with patient. There is no other new complaints. Review of system Constitutional: Patient did not mention fevers, sweats, remained slightly tired and fatigued HEENT: Patient did not mention sinus congestion, [...] 24 hours: As per nursing note Exam: This is a phone visit with patient PATH LABS Labs from March 30 showed iron 37 iron saturation 14% ferritin 46 vitamin B12 2912 hemoglobin 11.5 Labs from May 24 showed hemoglobin 11.6 iron 52 saturation 21% Labs from June 08 showed hemoglobin 11.8 MCV 86.3 vitamin B12 496. Assessment: Plan: Patient Active Problem List Diagnosis Date Noted Chronic anemia 03/30/2022 Iron deficiency anemia. He denies any further hematuria. Patient decided to take iron 3 times a dayinstead of iron infusion. Hemoglobin has improved to 11.8. He will continue oral iron 3 times a day. Vitamin B12 deficiency. Vitamin B12 level has improved to 496. He will continue vitamin B12 1 mg daily. We will repeat labs again in 3 months. Hematuria. He will continue follow-up with the urologist. TOBACCO COUNSELING He is not a tobacco user. 06/11/2022 Av Melendez MD AGENT documented in this encounter Plan of Treatment Upcoming Encounters Date Type Department Care Team (Late st Contact Info) Description 11/05/2024 1:00 PM CDT Office Visit [facility] Oncology and Hematology - Eusebio [address] [place] [address] Av Melendez MD [address] [facility] [address] [place] [phone] Scheduled Orders Name Type Priority Associated Diagnoses Orde r Schedule CBC WITH DIFFERENTIAL Lab Stat Chronic anemia Expected: 09/03/2022, Expires: 06/11/2023 FERRITIN Lab Routine Chronic anemia Expected: 09/03/2022, Expires: 06/11/2023 IRON, TIBC, AND PERCENT SATURATION Lab Routine Chronic anemia Expected: 09/03/2022, Expires: 06/11/2023 documented as of this encounter Visit Diagnoses Diagnosis Chronic anemia- Primary Anemia, unspecified documented in this encounter Care Teams Underground Mine Superintendent Relationship Specialty Start Date End Date Meliton Washburn MD PCP - General Family Practice 03/30/22 documented as of this encounter
--- OUTSIDE RECORDS SUMMARY | 2024-06-06 22:42 | XMS_ITS | Encounter Summary ---
Author Organization [facility] [employer] [facility] Address [address] [place] [address] Care Team Providers Care Rubber Goods Tester Water Name Role Phone Meliton Washburn MD Primary Care Provider +1- [phone] Encounter Details Date Type Department Care Team ([facility] Contact Info) Description 06/16/2022 Orders Only [facility] Oncology and Hematology [facility] [address] [place] [address] [address] [place] [address] Lula Sibley Chronic anemia Social History Tobacco Use Types Packs/Day Years [...] Coronavirus/COVID-19? No / Unsure 06/11/2022 11:00 AM MANAGER ORACLE documented as of this encounter Plan of Treatment Upcoming Encounters Date Type Department Care Team ([facility] Contact Info) Description 11/05/2024 1:00 PM CDT Office Visit [facility] Oncology and [place] [address] [place] [address] Av Melendez MD [address] [facility] [address] [place] [address] documented as of this encounter Visit Diagnoses Diagnosis Chronic anemia Anemia, unspecified documented in this encounter Care Teams Rubber Goods Tester Water Relationship Specialty Start Date End Date Meliton Washburn MD PCP - General Family Practice 03/30/22 documented as of this encounter
--- OUTSIDE RECORDS SUMMARY | 2024-06-06 22:42 | XMS_ITS | Encounter Summary ---
Author Organization [facility] [employer] [facility] Address [address] [place] [address] Care Team Providers Care Privacy Compliance Manager Name Role Phone Meliton Washburn MD Primary Care Provider +1- [phone] Reason for Visit * Reason Comments Follow Up Encounter Details Date Type Department Care Team (Late st Contact Info) Description 06/08/2022 11:00 AM LINEMAN SERVICE OR WORK DISPATCHER Office Visit [facility] Oncology and Hematology - Eusebio [address] [facility] [address] [place] [address] Av Melendez MD [address] [facility] [address] [place] [address] Chronic anemia (Primary Dx) Social [...] Coronavirus/COVID-19? No / Unsure 06/08/2022 10:46 AM LINEMAN SERVICE OR WORK DISPATCHER documented as of this encounter Last Filed Vital Signs Vital Sign Reading Time Taken Comments Blood Pressure 142/63 06/08/2022 11:03 AM LINEMAN SERVICE OR WORK DISPATCHER Pulse 55 06/08/2022 11:03 AM LINEMAN SERVICE OR WORK DISPATCHER Temperature 36.4 ??C (97.5 ??F) 06/08/2022 11:[address] Respiratory Rate 16 06/08/2022 11:03 AM LINEMAN SERVICE OR WORK DISPATCHER Oxygen Saturation 96% 06/08/2022 11:03 AM LINEMAN SERVICE OR WORK DISPATCHER Inhaled Oxygen Concentration - - Weight 83.1 kg (183 lb 4.8 oz) 06/08/2022 11:03 AM LINEMAN SERVICE OR WORK DISPATCHER Height - - Body Mass Index 24.86 03/30/2022 2:41 PM CDT documented in this encounter Progress Notes * Av Melendez MD - 06/08/2022 11:35 AM CST HEMATOLOGY / ONCOLOGY PROGRESS NOTE [...] showed hemoglobin 11.6 iron 52 saturation 21% Assessment: Plan: Patient Active Problem List Diagnosis Date Noted Chronic anemia 03/30/2022 Iron deficiency anemia. He denies any further hematuria. Patient decided to take iron 3 times a dayinstead of iron infusion. Hemoglobin has remained stable at 11.6. Iron studies have improved. He will continue oral iron 3 times a day. We will check CBC again today. Vitamin B12 efficiency. Patient is vitamin B12 1 mg daily. We will check vitamin B12 level today. He will call later this week to discuss lab results. Hematuria. He will continue to follow with Dr. Dallas Valenzuela. TOBACCO COUNSELING He is not a tobacco user. 06/08/2022 Av Melendez MD MAN SERVICE OR WORK DISPATCHER documented in this encounter Plan of Treatment Upcoming Encounters Date Type Department Care Team (Late st Contact Info) Description 11/05/2024 1:00 PM CDT Office Visit [facility] Oncology and Hematology - Eusebio [address] [facility] [address] [place] [address] Av Melendez MD [address] [facility] [address] [place] [address] documented as of this encounter Visit Diagnoses Diagnosis Chronic anemia- Primary Anemia, unspecified documented in this encounter Care Teams Privacy Compliance Manager Relationship Specialty Start Date End Date Meliton Washburn MD PCP - General Family Practice 03/30/22 documented as of this encounter
--- OUTSIDE RECORDS SUMMARY | 2024-06-06 22:42 | XMS_ITS | Encounter Summary ---
Author Organization [facility] Address [address] [facility] Attn: Epic Prelude ADT [place] [address] Care Team Providers Care Rotary Cutter Feeder Name Role Phone Meliton Washburn MD Primary Care Provider +1- [phone] Encounter Details Date Type Department Care Team (Latest Contact Info) Description 04/06/2022 Travel Social History Tobacco Use Types Packs/Day [...] suspected to have Coronavirus/COVID-19? No / Unsure 04/06/2022 4:13 PM CDT documented as of this encounter Plan of Treatment Upcoming Encounters Date Type Department Care Team (Late st Contact Info) Description 11/05/2024 1:00 PM CDT Office Visit [facility] Oncology and Hematology - Eusebio [address] [facility] [address] [place] [address] Av Melendez MD [address] [facility] [address] [place] [address] documented as of this encounter Visit Diagnoses Not on filedocumented in this encounter Care Teams Rotary Cutter Feeder Relationship Specialty Start Date End Date Meliton Washburn MD PCP - General Family Practice 10/11/22 documented as of this encounter
--- OUTSIDE RECORDS SUMMARY | 2024-06-06 22:42 | XMS_ITS | Encounter Summary ---
Author Organization [facility] [employer] [facility] Address [address] [place] [address] Care Team Providers Care Felting Machine Operator Helper Name Role Phone Meliton Washburn MD Primary Care Provider +1- [phone] Encounter Details Date Type Department Care Team (Late st Contact Info) Description 09/03/2022 Orders Only [facility] Oncology and Hematology - Eusebio [address] [place] [address] [place] Jessica Chronic anemia Social History Tobacco Use Types [...] Description 11/05/2024 1:00 PM CDT Office Visit [facility] Oncology and Hematology - Eusebio [address] [place] [address] Av Melendez MD [address] [facility] [address] [place] [address] documented as of this encounter Visit Diagnoses Diagnosis Chronic anemia Anemia, unspecified documented in this encounter Care Teams Felting Machine Operator Helper Relationship Specialty Start Date End Date Meliton Washburn MD PCP - General Family Practice 03/30/22 documented as of this encounter
--- OUTSIDE RECORDS SUMMARY | 2024-06-06 22:42 | XMS_ITS | Encounter Summary ---
Author Organization [facility] [employer] [facility] Address [address] [place] [address] Care Team Providers Care Commercial Maintenance Technician Name Role Phone Meliton Washburn MD Primary Care Provider +1- [phone] Encounter Details Date Type Department Care Team (Late Contact Info) Description 09/02/2022 Orders Only [facility] Oncology and Hematology - Eusebio [address] [place] [address] Lula Sibley Chronic anemia Social [...] Rehabilitation Oncology and Hematology - Eusebio [address] [place] [address] Av Melendez MD [address] [facility] [address] [place] [address] documented as of this encounter Visit Diagnoses Diagnosis Chronic anemia Anemia, unspecified documented in this encounter Care Teams Commercial Maintenance Technician Relationship Specialty Start Date End Date Meliton Washburn MD PCP - General Family Practice 03/30/22 documented as of this encounter
--- OUTSIDE RECORDS SUMMARY | 2024-06-06 22:43 | XMS_ITS | Encounter Summary ---
Author Organization [facility] Address [address] [place] [address] Care Team Providers Care Solderer Dipper Name Role Phone Meliton Washburn MD Primary Care Provider +1- [phone] Encounter Details Date Type Department Care Team (Late st Contact Info) Description 04/06/2022 3:45 PM CDT Telephone Check Up [facility] Oncology and Hematology - [place] [address] [place] [address] [address] [place] [address] Av Melendez MD [address] [facility] [address] [place] [address] Chronic anemia (Primary Dx) Social [...] PM CDT documented as of this encounter Progress Notes * Av Melendez MD - 04/06/2022 4:39 PM CDT HEMATOLOGY / ONCOLOGY PROGRESS NOTE Patient Identification: Name: Meliton Delacruz Age: 82 y.o. Sex: male : 1940 DIAGNOSIS Iron deficiency anemia CURRENT TREATMENT Ferrous sulfate once a day TREATMENT HISTORY SUBJECTIVE This is a audio visit with patient. He has mild tiredness and fatigue. Intermittent hematuria. No other new complaints. Review of system [...] dizziness Skin: No lumps, bumps or rashes. Objective: Vital signs in last 24 hours: As per nursing note Exam: This is a audio visit. [facility] Labs from March 30 showed iron 37 iron saturation 14% ferritin 46 vitamin B12 2912 hemoglobin 11.5 @IMAGEIMP@ Assessment: Plan: Patient Active Problem List Diagnosis Date Noted Chronic anemia 03/30/2022 Iron deficiency anemia. Patient has been dealing with intermittent hematuria. He is on oral iron 65mg once a day for more than a year. I have reviewed the labs. We will start him on iron infusion. We will repeat labs in 2 months. Vitamin B12 deficiency. He will start vitamin B12 1 mg daily. Hematuria. He will follow-up with Dr. Dallas Valenzuela. ? TOBACCO COUNSELING He is not a tobacco user. 04/06/2022 Av Melendez MD This encounter was completed via audio-only two way synchronous communication. Patient's identity confirmed yes Patient gave verbal consent to have these services billed to their insurance and expressed understanding that co-insurance and deductible may apply: yes Time spent by the provider delivering the care documented in this encounter 15 minutes. documented in this encounter Plan of Treatment Upcoming Encounters Date Type Department Care Team (Late st Contact Info) Description 11/05/2024 1:00 PM CDT Office Visit [facility] Oncology and Hematology - Eusebio [address] [place] [address] Av Melendez MD [address] [facility] [address] [place] [address] Scheduled Orders Name Type Priority Associated Diagnoses Orde r Schedule VITAMIN B12 AND FOLATE Lab Routine Chronic anemia Expected: 06/01/2022, Expires: 04/06/2023 documented as of this encounter Visit Diagnoses Diagnosis Chronic anemia- Primary Anemia, unspecified documented in this encounter Care Teams Solderer Dipper Relationship Specialty Start Date End Date Meliton Washburn MD PCP - General Family Practice 03/30/22 documented as of this encounter
--- OUTSIDE RECORDS SUMMARY | 2024-06-06 22:43 | XMS_ITS | Encounter Summary ---
Author Organization [facility] [employer] [facility] Address [address] [place] [address] Care Team Providers Care Recruiting Scheduler Name Role Phone Meliton Washburn MD Primary Care Provider +1- [phone] Encounter Details Date Type Department Care Team (Late Contact Info) Description 04/01/2022 Abstract [facility] Oncology [facility] Hematology [facility] [address] [place] [address] Av Melendez MD [facility] [place] [address] [place] [address] Social History Tobacco Use Types Packs/Day [...] suspected to have Coronavirus/COVID-19? No / Unsure 03/30/2022 2:25 PM CDT documented as of this encounter Plan of Treatment Upcoming Encounters Date Type Department Care Team (Late Contact Info) Description 11/05/2024 1:00 PM CDT Office Visit [facility] Oncology and Hematology [facility] [address]intan [address] [place] [address] Av Melendez MD [address] [place] [address] [place] [address] documented as of this encounter Visit Diagnoses Not on filedocumented in this encounter Care Teams Recruiting Scheduler Relationship Specialty Start Date End Date Meliton Washburn MD PCP - General Family Practice 03/30/22 documented as of this encounter
--- OUTSIDE RECORDS SUMMARY | 2024-06-06 22:44 | XMS_ITS | Encounter Summary ---
Author Organization [facility] [employer] [facility] Address [address] [place] [address] Care Team Providers Care Flower Cutter Name Role Phone Unavailable Primary Care Provider Unavailabl e Encounter Details Date Type Department Care Team (Late Contact Info) Description 03/18/2022 Abstract [facility] Oncology and Hematology Eusebio Chintan [address] [place] [address] Av Melendez MD [address] [place] [address] [employer] [address] [place], [place] [address] Social History Tobacco Use Types Packs/Day Years [...] Visit [facility] Oncology and Hematology Eusebio Chintan [address] [place] [address] [place] [address] [place] [address] [employer] [address] [place] [id number] documented as of this encounter Visit Diagnoses Not on filedocumented in this encounter
--- OUTSIDE RECORDS SUMMARY | 2024-06-06 22:44 | XMS_ITS | Continuity of Care Document ---
Author Organization [facility] Address [address] [facility] [address] [place] [address] Phone Care Team Providers Care Tool Dispatcher Name Role Phone Holland OD, Christian Unavailable [...] Diagnoses Date Provider Providers Copied on Encounter [facility], [address] [place] [address] [address], [place], [place], [id number], tel:[phone] SEC [facility] No Information Nov-0 6-200 9 Holland OD Christian. [address] [facility] , [address], [place], [address], [place]. tel:[phone] Referring Provider: Dale Stone MD Ariel, [address] [place] [address], [address]. tel:[phone] [facility], [address] [place] [address] [address], [place], [place], [id number], tel:[phone] SEC [facility] No Information Oct-0 2-200 8 Holland OD Christian. [address] , [address], [place], [address], [place]. tel:[phone] Referring Provider: Dale Stone MD Ariel, [address] [place] [address], [address]. tel:[phone] [facility], [address], [place], [place], [id number], [place] tel:[phone] SEC [facility] No Information Mar-3 0-200 7 [employer] . [address] [facility], [address], [place], [place], [id number], [place]. tel:[phone] Consulting Provider: Melodie Tran, [address] [place] [address], [address]. tel:[phone] [facility], [address], [place], [place], [id number], [place] tel:[phone] SEC [facility] No Information Aug-3 0-200 7 [employer] . [address] [facility], [address], [place], [place], [id number], [place]. tel:[phone] Referring Provider: Delvin Foster, [address] [place] [address], [address]. tel:[phone] lting Provider: Melodie Tran, [address] [place] [address], [address]. tel:[phone] Family History Family Member Type Diagnosis Age At Onset No Information Payers Payer name Insurance type Covered constitution party ID Authoriza tion(s) Medicare [facility] [id number] [facility] CI [id number] Social History Type Description Quantity Date Captured [...]
--- OUTSIDE RECORDS SUMMARY | 2024-06-06 22:44 | XMS_ITS | Encounter Summary ---
Author Organization [facility] Address [address] [facility] Attn: Epic Prelude ADT [place] [address] Care Team Providers Care Malt House Kiln Operator Name Role Phone Meliton Washburn MD Primary Care Provider +1- [phone] Encounter Details Date Type Department Care Team (Latest Contact Info) Description 03/30/2022 Travel Social History Tobacco Use Types Packs/Day [...] PM CDT Office Visit [facility] Oncology and Hematology - Eusebio [address] [facility] [address] [place] [address] Av Melendez MD [address] [facility] [address] [place] [address] documented as of this encounter Visit Diagnoses Not on filedocumented in this encounter Care Teams Malt House Kiln Operator Relationship Specialty Start Date End Date Meliton Washburn MD PCP - General Family Practice 10/11/22 documented as of this encounter
--- OUTSIDE RECORDS SUMMARY | 2024-06-06 22:44 | XMS_ITS | Encounter Summary ---
Author Organization [facility] Address [address] [place] [address] Care Team Providers Care Line Dancer Name Role Phone Meliton Washburn MD Primary Care Provider +1- [phone] Reason for Visit * Reason Comments Establish Care Encounter Details Date Type Department Care Team (Late st Contact Info) Description 03/30/2022 3:00 PM CDT Office Visit [facility] Oncology and Hematology - Eusebio [address] [facility] [address] [place] [address] Av Melendez MD [address] [facility] [address] [place] [address] Chronic anemia (Primary Dx) Social History Tobacco Use Types Packs/Day Years Used Date Smoking Tobacco: Never Smokeless Tobacco: Never Tobacco Cessation:Counseling Given: No Alcohol Use Standard Drinks/Week Comments Never 0 [...] Sign Reading Time Taken Comments Blood Pressure 124/67 03/30/2022 2:41 PM CDT Pulse 83 03/30/2022 2:41 PM CDT Temperature 36.5 ??C (97.7 ??F) 03/30/2022 2:41 PM CD T Respiratory Rate - - Oxygen Saturation 98% 03/30/2022 2:41 PM CDT Inhaled Oxygen Concentration - - Weight 81.6 kg (180 lb) 03/30/2022 2:41 PM CDT Height 182.9 cm (6') 03/30/2022 2:41 PM CDT Body Mass Index 24.41 03/30/2022 2:41 PM CDT documented in this encounter Progress Notes * Av Melendez MD - 03/30/2022 3:08 PM CDT Hematology-oncology consult Note Requesting Physician Meliton Washburn MD Primary Care Physician Meliton Washburn MD Problem list There is no problem list on file for this patient. Previous TREATMENT ? Measurable Disease ? Reason for Visit Meliton Delacruz is a 81 y.o. male who was referred for consultation for iron deficiency anemia. History of present illness This is a pleasant 81-year-old male admitted initially to the hospital on February 12 with complaint of sudden onset of chest discomfort as well as epigastric pain. He has a history of type 2diabetes, hypertension and GERD. CTA chest showed no PE. CT abdomen pelvis showed distended urinarybladder with soft tissue density in the left kidney. Abdominal MRI showed 1.4 cm complex cyst of the left kidney. Labs showed hemoglobin of 12.6 with normal creatinine. Patient was again admitted to the hospital on March 14 with hematuria. He has indwelling Ahumada catheter placement during the last hospital stay. Patient had cystoscopy with clot evacuation and cauterization of prostatic urethra done on March 15. He now started having hematuria today. Denies any excessive tiredness and fatigue. No bleeding and bruising. Weight and appetite stable. No other new complaints. Past Medical History No past medical history on file. Peripheral vascular disease Type 2 diabetes Hypertension Hyperlipidemia Arthritis Surgical History No past surgical history on file. Cholecystectomy Medications Current Outpatient Medications Medication Sig Dispense Refill amLODIPine-atorvastatin 5-10 mg tablet Take 1 Tablet by mouth daily. atorvastatin (LIPITOR) 10 mg tablet Take 10 mg by mouth daily. bethanechol (URECHOLINE) 25 mg tablet Take 25 mg by mouth 3 times daily. cetirizine (ZyrTEC) 10 mg tablet Take 10 mg by mouth daily. IRON, CARBONYL ORAL Take 65 mg by mouth. fluticasone propionate (FLONASE) 50 mcg/spray [place], Suspension nasal inhaler Administer 2 Sprays in each nostril daily. hydroCHLOROthiazide 25 mg tablet Take 25 mg by mouth daily. metFORMIN (GLUCOPHAGE) 500 mg tablet Take 500 mg by mouth 2 times daily with meals. nitrofurantoin (MACROBID) 100 mg capsule Take 100 mg by mouth 2 times daily. omeprazole (PriLOSEC) 20 mg Capsule, Delayed Release(E.C.) Take 20 mg by mouth daily. No current facility-administered medications for this visit. Allergies Allergies Allergen Reactions Sulfa (Sulfonamide Antibiotics) Nausea and Vomiting Immunizations: There is no immunization history on file for this patient. Family History No family history on file. Social History Social History Tobacco Use Smoking status: Never Smokeless tobacco: Never Substance Use Topics Alcohol use: Never Review of Systems Constitutional: Patient did not mention fever; no night sweats; no anorexia; no weight loss; no fatique NEENT: Patient did not mention headache; no change in vision; no change in hearing; no sore throat;no dysphagia Respiratory: Patient did not mention shortness of breath; no pleuritic chest pain; no cough; no hemoptysis Cardiac: Patient did not mention cardiac-like chest pain; no palpitations; no orthopnea; no PND; noDOE GI: Patient did not mention abdominal pain; no nausea; no vomiting; no diarrhea; no hematochezia; no melena : Patient did not mention dysuria; no frequency; no hesitancy; no hematuria WOOD MILLING MACHINE TENDER: Musculosketetal: Patient did not mention bone pain; no arthralgia; no joint swelling; no myalgia; Skin: Patient did not mention pruritis; no rash; no petechiae; no ecchymoses Endocrine: Patient did not mention polydipsia; no polyuria; no unusual weight gain Neuro: Patient did not mention headache; no change in vision; no sensory changes; no muscle weakness; no confusion; no seizures Psych: Patient did not mention anxiety; no depression; Physical Exam Vitals: As per nursing note Constitutional: Well developed, well nourished, no acute distress, non-toxic appearance Teeth and gum. No signs of infection or swelling. Eyes: PERRL, conjunctiva normal HEENT: Atraumatic, external ears normal, nose normal, [...] normal sensory function, no focal deficits noted Psychiatric: Speech and behavior appropriate ? labs No results found for this or any previous visit (from the past 24 hour(s)). Labs from March 25, 2022 show WC 7.3 hemoglobin 11.6 MCV 87.7 platelet 344,000 creatinine 0.82. Pathology ? Imaging & Other Studies Performance Status? Assessment / Plan: ? Iron deficiency anemia. Patient is a pleasant 81-year-old male with history of peripheralvascular disease and diabetes. He was initially admitted to the hospital in January 2022. Labs showed iron deficiency anemia with iron level of 21. Patient has been taking oral iron 65 mg once a day for more than a year duration. His last colonoscopy was more than 10 years ago. Patient was discharged home with Ahumada catheter placement for urinary retention. He was then admitted to the hospital on March 15 with hematuria. Hematuria resolved after cystoscopy and clot evacuation with cauterization of prostatic urethra on March 15. He now complain of hematuria. He denies any melena and ba tochezia. He denies being a vegetarian. He has lost 10 pound weight. No other new complaints. At this point I will repeat labs including CBC, iron panel and vitamin B12 level. Based on the iron levelwe will decide about iron infusion. I have answered all the questions to patient and the satisfaction. Hematuria. I have instructed him to follow-up with Dr. Dallas Valenzuela. Type 2 diabetes. He is on Glucophage. Thank you very much for allowing me to participate in Meliton Delacruz's evaluation and management. Please feel free to contact if I can be of any further assistance in your patient???s care requiring hematology or oncology evaluation. Sincerely, ? ? Av Melendez M.D. cell TOBACCO COUNSELING He is not a tobacco user. Av Melendez MD ,03/30/2022 3:08 PM ? Total time spent 60 minutes, two third of the total time spent counseling patient [id number]. CC:?Meliton Washburn MD documented in this encounter Plan of Treatment Upcoming Encounters Date Type Department Care Team (Late st Contact Info) Description 11/05/2024 1:00 PM CDT Office Visit [facility] Oncology and Hematology - Euseboi [address] [facility] [address] [place] [address] Av Melendez MD [address] [facility] [address] [place] [address] Scheduled Orders Name Type Priority Associated Diagnoses Orde r Schedule CBC WITH DIFFERENTIAL Lab Stat Chronic anemia Expected: 03/30/2022, Expires: 03/30/2023 FERRITIN Lab Routine Chronic anemia Expected: 03/30/2022, Expires: 03/30/2023 IRON, TIBC, AND PERCENT SATURATION Lab Routine Chronic anemia Expected: 03/30/2022, Expires: 03/30/2023 VITAMIN B12 LEVEL Lab Routine Chronic anemia Expected: 03/30/2022, Expires: 03/30/2023 documented as of this encounter Visit Diagnoses Diagnosis Chronic anemia- Primary Anemia, unspecified documented in this encounter Care Teams Line Dancer Relationship Specialty Start Date End Date Meliton Washburn MD PCP - General Family Practice 03/30/22 documented as of this encounter
--- OUTSIDE RECORDS SUMMARY | 2024-06-06 23:47 | XMS_ITS | Encounter Summary ---
Author Organization [facility] [employer] [facility] Address [address] [place] [address] Care Team Providers Care Towel Folder Name Role Phone Meliton Washburn MD Primary Care Provider +1- [phone] Encounter Details Date Type Department Care Team ([facility] Contact Info) Description 01/13/2024 Orders Only [facility] Oncology and Hematology Eusebio [address] [place] [address] Av Melendez MD [address] [place] [address] [address] [place] [address] Social History Tobacco Use Types Packs/Day [...] Date Type Department Care Team ([facility] Contact Info) Description 11/05/2024 1:00 PM CDT Office Visit [facility] Oncology and Hematology - Eusebio Chintan [address] [place] [address] Av Melendez MD [address] [place] [address] [address] [place] [address] documented as of this encounter Procedures [...] on filedocumented in this encounter Care Teams Towel Folder Relationship Specialty Start Date End Date Meliton Washburn MD PCP - General Family Practice 03/30/22 documented as of this encounter
--- OUTSIDE RECORDS SUMMARY | 2024-06-06 23:47 | XMS_ITS | Encounter Summary ---
Author Organization [facility] Address [address] [place] [address] Care Team Providers Care Supervisor Plate Forming Name Role Phone Meliton Washburn MD Primary Care Provider +1- [phone] Encounter Details Date Type Department Care Team [...] Description 11/05/2024 1:00 PM CDT Office Visit [facility] Oncology and Hematology - Eusebio [address] [place] [address] [address] [place] [phone] [place] [address] [place] [address] [address] [place] [address] documented as of this encounter Visit Diagnoses Not on filedocumented in this encounter Care Teams Supervisor Plate Forming Relationship Specialty Start Date End Date Meliton Washburn MD PCP - General Family Practice 03/30/22 documented as of this encounter
--- OUTSIDE RECORDS SUMMARY | 2024-06-06 23:47 | XMS_ITS | Encounter Summary ---
Author Organization [facility] Address [address] [place] [address] Care Team Providers Care Maintenance Groundman Name Role Phone Meliton Washburn MD Primary Care Provider +1- [phone] Encounter Details Date Type Department Care Team [...] [facility] Oncology and Hematology - Eusebio [address] [place] [address] [address] [place] [id number] [place] [address] [place] [address] [address] [place] [address] documented as of this encounter Visit Diagnoses Not on filedocumented in this encounter Care Teams Maintenance Groundman Relationship Specialty Start Date End Date Meliton Washburn MD PCP - General Family Practice 03/30/22 documented as of this encounter
--- OUTSIDE RECORDS SUMMARY | 2024-06-06 23:47 | XMS_ITS | Encounter Summary ---
Author Organization [facility] Address [address] [place] [address] Care Team Providers Care Camera Machinist Name Role Phone Meliton Washburn MD Primary Care Provider +1- [phone] Encounter Details Date Type Department Care Team [...] Description 11/05/2024 1:00 PM CDT Office Visit [facility] Oncology and Hematology - Eusebio [address] [place] [address] [address] [place] [phone] [place] [address] [place] [address] [address] [place] [address] documented as of this encounter Visit Diagnoses Not on filedocumented in this encounter Care Teams Camera Machinist Relationship Specialty Start Date End Date Meliton Washburn MD PCP - General Family Practice 03/30/22 documented as of this encounter
--- OUTSIDE RECORDS SUMMARY | 2024-06-06 23:47 | XMS_ITS | Clinical Summary ---
Author Organization [facility] Address [address] [facility] [place] [address] Care Team Providers Care Telegraph Messenger Name Role Phone Meliton Washburn MD Primary Care Provider +1- [phone] Allergies Active Allergy Reactions Criticality Noted Date [...] mouth. Active fluticasone propionate (FLONASE) 50 mcg/spray [place], Suspension nasal inhaler Administer 2 Sprays in [...] Department Care Team Description 05/07/2024 2:45 PM LINING FELLER BLINDSTITCH Office Visit [facility] Oncology and Hematology [facility] [address] [place] [address] Av Melendez MD Chronic anemia (Primary Dx) 05/04/2024 Orders Only [facility] Oncology and Hematology [facility] [address] [place] [address] Av Melendez MD from Last [...] Comments Blood Pressure 131/68 05/07/2024 3:27 PM LINING FELLER BLINDSTITCH Pulse 69 05/07/2024 3:24 PM LINING FELLER BLINDSTITCH Temperature 36.6 ??C (97.8 ??F) 05/07/2024 3:24 PM CS T Respiratory Rate 15 05/07/2024 3:24 PM LINING FELLER BLINDSTITCH Oxygen Saturation 96% 05/07/2024 3:24 PM LINING FELLER BLINDSTITCH Inhaled Oxygen Concentration - - Weight 83.3 kg (183 lb 9.6 oz) 05/07/2024 3:24 P M LINING FELLER BLINDSTITCH Height 182.9 cm (6') 03/30/2022 2:41 PM CDT Body Mass Index 24.9 03/30/2022 2:41 PM CDT Plan of Treatment Upcoming Encounters Date Type Department Care Team (Late st Contact Info) Description 11/05/2024 1:00 PM CDT Office Visit [facility] Oncology and Hematology [facility] [address] [place] [address] Av Melendez MD [address] [facility] [employer] [address] [place] [address] Health Maintenance Due Date Last [...] CBC WITH DIFFERENTIAL Routine 05/03/2024 12:30 PM LINING FELLER BLINDSTITCH IRON LEVEL Routine 05/03/2024 12:21 PM LINING FELLER BLINDSTITCH from Last 3 Months Results * CBC WITH DIFFERENTIAL (05/03/2024 12:30 PM LINING FELLER BLINDSTITCH) Blood Av Melendez MD HEMATOLOGY ORDERABLE S * IRON LEVEL (05/03/2024 12:21 PM LINING FELLER BLINDSTITCH) Blood Av Melendez MD CHEMISTRY ORDERABLES from Last 3 Months Care Teams Telegraph Messenger Relationship Specialty Start Date End Date Meliton Washburn MD PCP - General Family Practice 03/30/22
--- OUTSIDE RECORDS SUMMARY | 2024-06-06 23:47 | XMS_ITS | Encounter Summary ---
Author Organization [facility] [employer] [facility] Address [address] [place] [address] Care Team Providers Care Portfolio Analyst Name Role Phone Meliton Washburn MD Primary Care Provider +1- [phone] Encounter Details Date Type Department Care Team ([facility] Contact Info) Description 05/04/[address] [facility] Oncology and Hematology - Eusebio [address] [place] [address] Av Melendez MD [address] [place] [address] [employer] [address] [place] [address] Social History Tobacco Use Types Packs/Day [...] Upcoming Encounters Date Type Department Care Team ([facility] Contact Info) Description 11/05/2024 1:00 PM CDT Office Visit [facility] Oncology and Hematology - Eusebio Chintan [address] [place] [address] Av Melendez MD [address] [place] [address] [employer] [address] [place] [address] documented as of this encounter Procedures Procedure Name Priority Date/Time Associated Diagnosis Comments CBC WITH DIFFERENTIAL Routine 05/03/2024 12:30 PM COMPOSITION WORKER IRON LEVEL Routine 05/03/2024 12:21 PM COMPOSITION WORKER documented in this encounter Results * CBC WITH DIFFERENTIAL (05/03/2024 12:30 PM COMPOSITION WORKER) Blood Av Melendez MD HEMATOLOGY ORDERABLE S * IRON LEVEL (05/03/2024 12:21 PM COMPOSITION WORKER) Blood Av Melendez MD CHEMISTRY ORDERABLES documented in this encounter Visit Diagnoses Not on filedocumented in this encounter Care Teams Portfolio Analyst Relationship Specialty Start Date End Date Meliton Washburn MD PCP - General Family Practice 03/30/22 documented as of this encounter
--- OUTSIDE RECORDS SUMMARY | 2024-06-06 23:47 | XMS_ITS | Encounter Summary ---
Author Organization [facility] Address [address] [place] [address] Care Team Providers Care E Commerce Retailer Name Role Phone Meliton Washburn MD Primary Care Provider +1- [phone] Encounter Details Date Type Department Care Team [...] PM CDT Office Visit [facility] Oncology and Hematology - Eusebio [address] [place] [address] [address] [place] [phone] [place] [address] [place] [address] [address] [place] [address] documented as of this encounter Visit Diagnoses Not on filedocumented in this encounter Care Teams E Commerce Retailer Relationship Specialty Start Date End Date Meliton Washburn MD PCP - General Family Practice 03/30/22 documented as of this encounter
--- OUTSIDE RECORDS SUMMARY | 2024-06-06 23:47 | XMS_ITS | Encounter Summary ---
Author Organization [facility] Address [address] [place] [address] Care Team Providers Care Smt Technician Name Role Phone Meliton Washburn MD Primary Care Provider +1- [phone] Encounter Details Date Type Department Care Team [...] [facility] Oncology and Hematology - Eusebio [address] [place] [address] [address] [place] [phone] [place] [address] [place] [address] [address] [place] [address] documented as of this encounter Visit Diagnoses Not on filedocumented in this encounter Care Teams Smt Technician Relationship Specialty Start Date End Date Meliton Washburn MD PCP - General Family Practice 03/30/22 documented as of this encounter
--- OUTSIDE RECORDS SUMMARY | 2024-06-06 23:47 | XMS_ITS | Encounter Summary ---
Author Organization [facility] Address [address] [place] [address] Care Team Providers Care Sales Promotion Coordinator Name Role Phone Meliton Washburn MD Primary Care Provider +1- [phone] Encounter Details Date Type Department Care Team [...] [facility] Oncology and Hematology - Eusebio [address] [place] [address] [address] [place] [phone] [place] [address] [place] [address] [address] [place] [address] documented as of this encounter Visit Diagnoses Not on filedocumented in this encounter Care Teams Sales Promotion Coordinator Relationship Specialty Start Date End Date Meliton Washburn MD PCP - General Family Practice 03/30/22 documented as of this encounter
--- OUTSIDE RECORDS SUMMARY | 2024-06-06 23:47 | XMS_ITS | Encounter Summary ---
Author Organization [facility] [facility] Address [address] [place] [address] Care Team Providers Care Refuge Worker Name Role Phone Meliton Washburn MD Primary Care Provider +1- [phone] Reason for Visit * Reason Comments Follow Up Encounter Details Date Type Department Care Team ([facility] st Contact Info) Description 09/16/2023 12:00 PM CDT Office Visit [facility] Oncology and Hematology - Eusebio [address] [place] [address] [address] [place] [address] Av Melendez MD [address] [facility] [address] [place] [address] Chronic anemia (Primary Dx) Social [...] 11/05/2024 1:00 PM CDT Office Visit [facility] Oncology and Hematology - Eusebio [address] [facility] [address] [place] [address] Av Melendez MD [address] [facility] [address] [place] [address] Scheduled Orders Name Type Priority [...] unspecified documented in this encounter Care Teams Refuge Worker Relationship Specialty Start Date End Date Meltion Washburn MD PCP - General Family Practice 03/30/22 documented as of this encounter
--- OUTSIDE RECORDS SUMMARY | 2024-06-06 23:47 | XMS_ITS | Encounter Summary ---
Author Organization [facility] [employer] [facility] Address [address] [place] [address] Care Team Providers Care Busser Name Role Phone Meliton Washburn MD Primary Care Provider +1- [phone] Reason for Visit * Reason Comments Follow Up Encounter Details Date Type Department Care Team ([facility] st Contact Info) Description 05/07/2024 2:45 PM SHELTER SUPERVISOR Office Visit [facility] Oncology and Hematology - Eusebio [address] [facility] [address] [place] [address] Av Melendez MD [address] [facility] [address] [place] [address] Chronic anemia (Primary Dx) Social [...] Comments Blood Pressure 131/68 05/07/2024 3:27 PM SHELTER SUPERVISOR Pulse 69 05/07/2024 3:24 PM SHELTER SUPERVISOR Temperature 36.6 ??C (97.8 ??F) 05/07/2024 3:24 PM CS T Respiratory Rate 15 05/07/2024 3:24 PM SHELTER SUPERVISOR Oxygen Saturation 96% 05/07/2024 3:24 PM SHELTER SUPERVISOR Inhaled Oxygen Concentration - - Weight 83.3 kg (183 lb 9.6 oz) 05/07/2024 3:24 P M SHELTER SUPERVISOR Height - - Body Mass Index 24.9 [...] in 6 months. 05/07/2024 Av Melendez MD TER SUPERVISOR documented in this encounter Plan of Treatment Upcoming Encounters Date Type Department Care Team (Late st Contact Info) Description 11/05/2024 1:00 PM CDT Office Visit [facility] Oncology and Hematology - Eusebio [address] [facility] [address] [place] [address] Av Melendez MD [address] [facility] [address] [place] [address] Scheduled Orders Name Type Priority [...] unspecified documented in this encounter Care Teams Busser Relationship Specialty Start Date End Date Meliton Washburn MD PCP - General Family Practice 03/30/22 documented as of this encounter
--- OUTSIDE RECORDS SUMMARY | 2024-06-06 23:47 | XMS_ITS | Encounter Summary ---
Author Organization [facility] YADIRARadio Waves [facility] Address [address] [place] [address] Care Team Providers Care Booking Prizer Name Role Phone Meliton Washburn MD Primary Care Provider +1- [phone] Reason for Visit * Reason Comments Follow Up Encounter Details Date Type Department Care Team ([facility] st Contact Info) Description 01/19/2024 11:45 AM CDT Office Visit [facility] Oncology and Hematology - Eusebio [address] [facility] [address] [place] [address] Av Melendez MD [address] [facility] [address] [place] [address] Chronic anemia (Primary Dx) Social [...] Sign Reading Time Taken Comments Blood Pressure 139/66 01/19/2024 11:54 AM CDT Pulse 60 01/19/2024 11:54 AM CDT Temperature 36.6 ??C (97.8 ??F) 01/19/2024 11:54 AM C DT Respiratory Rate 18 01/19/2024 11:54 AM CDT Oxygen Saturation 96% 01/19/2024 11:54 AM CDT Inhaled Oxygen Concentration - - Weight 82.1 kg (181 lb) 01/19/2024 11:54 AM CDT Height - - Body Mass Index 24.55 03/30/2022 2:41 PM CDT documented in this encounter Progress Notes * Av Melendez MD - 01/19/2024 1:02 PM CDT HEMATOLOGY / ONCOLOGY PROGRESS NOTE Patient Identification: Name: Meliton Delacruz Age: 83 y.o. Sex: male : 1940 DIAGNOSIS Iron deficiency anemia CURRENT TREATMENT Ferrous sulfate 3 times a day. TREATMENT HISTORY SUBJECTIVE Patient came to the office for follow-up visit. He is complaining of mild tiredness and fatigue. Hestopped taking oral iron but just restarted 2 days ago. No bleeding and bruising. No other new [...] 35 saturation 13 ferritin 34 hemoglobin 11.2 Assessment: Plan: Patient Active Problem List Diagnosis Date Noted Chronic anemia 03/30/2022 Iron deficiency anemia. He denies any further hematuria. Patient decided to take iron 3 times a dayinstead of iron infusion. Patient is more symptomatic with tiredness and fatigue. He stopped taking oral iron for some unknown reasons. He just started taking iron again 2 days ago. Labs discussed with the patient. We will increase oral iron to 325 mg 3 times a day for 2 weeks and then twice a day. He will continue vitamin B12 1 mg daily. Follow-up in 3 months. Vitamin B12 deficiency. Continue vitamin B12 1 mg daily. B12 level stable. Hematuria. Resolved. Follow-up in 3 months. TOBACCO COUNSELING He is not a tobacco/nicotine user. 01/19/2024 Av Melendez MD documented in this encounter Plan of Treatment Upcoming Encounters Date Type Department Care Team (Late st Contact Info) Description 11/05/2024 1:00 PM CDT Office Visit [facility] Oncology and Hematology - Eusebio [address] [facility] [facility] [address] [place] [address] Av Melendez MD [address] [facility] [address] [place] [address] Scheduled Orders Name Type Priority Associated Diagnoses Orde r Schedule CBC WITHOUT DIFFERENTIAL Lab Stat Chronic anemia Expected: 04/12/2024, Expires: 01/18/2025 FERRITIN Lab Routine Chronic anemia Expected: 04/12/2024, Expires: 01/18/2025 IRON, TIBC, AND PERCENT SATURATION Lab Routine Chronic anemia Expected: 04/12/2024, Expires: 01/18/2025 VITAMIN B12 AND FOLATE Lab Routine Chronic anemia Expected: 04/12/2024, Expires: 01/18/2025 documented as of this encounter Visit Diagnoses Diagnosis Chronic anemia- Primary Anemia, unspecified documented in this encounter Care Teams Booking Prizer Relationship Specialty Start Date End Date eMliton Washburn MD PCP - General Family Practice 03/30/22 documented as of this encounter
--- OUTSIDE RECORDS SUMMARY | 2024-06-06 23:47 | XMS_ITS | Encounter Summary ---
Author Organization [facility] Address [address] [place] [address] Care Team Providers Care Piece Work Checker Name Role Phone Meliton Washburn MD Primary Care Provider +1- [phone] Encounter Details Date Type Department Care Team [...] Description 11/05/2024 1:00 PM CDT Office Visit [facility] Oncology and Hematology - Eusebio [address] [place] [address] [address] [place] [phone] [place] [address] [place] [address] [address] [place] [address] documented as of this encounter Visit Diagnoses Not on filedocumented in this encounter Care Teams Piece Work Checker Relationship Specialty Start Date End Date Meliton Washburn MD PCP - General Family Practice 03/30/22 documented as of this encounter
--- OUTSIDE RECORDS SUMMARY | 2024-06-06 23:47 | XMS_ITS | Encounter Summary ---
Author Organization [facility] Address [address] [place] [address] Care Team Providers Care Pharmacist Assistant Name Role Phone Meliton Washburn MD Primary Care Provider +1- [phone] Encounter Details Date Type Department Care Team [...] 11/05/2024 1:00 PM CDT Office Visit [facility] Oncology and Hematology - Eusebio [address] [place] [address] [address] [phone] [place] [address] [place] [address] [address] [place] [address] documented as of this encounter Visit Diagnoses Not on filedocumented in this encounter Care Teams Pharmacist Assistant Relationship Specialty Start Date End Date Meliton Washburn MD PCP - General Family Practice 03/30/22 documented as of this encounter
--- OUTSIDE RECORDS SUMMARY | 2024-06-06 23:47 | XMS_ITS | Encounter Summary ---
Author Organization [facility] Address [address] [place] [address] Care Team Providers Care Agricultural Research Director Name Role Phone Meliton Washburn MD Primary Care Provider +1- [phone] Encounter Details Date Type Department Care Team [...] [facility] - Eusebio [address] [place] [address] [address] [phone] [place] [address] [place] [address] [address] [place] [address] documented as of this encounter Visit Diagnoses Not on filedocumented in this encounter Care Teams Agricultural Research Director Relationship Specialty Start Date End Date Meliton Washburn MD PCP - General Family Practice 03/30/22 documented as of this encounter
--- OUTSIDE RECORDS SUMMARY | 2024-06-06 23:47 | XMS_ITS | Encounter Summary ---
Author Organization [facility] Address [address] [place] [address] Care Team Providers Care Oncology Admin Name Role Phone Meliton Washburn MD Primary Care Provider +1- [phone] Encounter Details Date Type Department Care Team [...] Description 11/05/2024 1:00 PM CDT Office Visit [facility] Oncology and Hematology - Eusebio [address] [place] [address] [address] [place] [address] [phone] [place] [address] [place] [address] [address] [place] [address] documented as of this encounter Visit Diagnoses Not on filedocumented in this encounter Care Teams Oncology Admin Relationship Specialty Start Date End Date Meliton Washburn MD PCP - General Family Practice 03/30/22 documented as of this encounter
--- OUTSIDE RECORDS SUMMARY | 2024-06-06 23:47 | XMS_ITS | Encounter Summary ---
Author Organization [facility] Address [address] [place] [address] Care Team Providers Care Posting Specialist Name Role Phone Meliton Washburn MD Primary Care Provider +1- [phone] Encounter Details Date Type Department Care Team [...] Description 11/05/2024 1:00 PM CDT Office Visit [facility] Oncology and Hematology - Eusebio [address] [place] [address] [address] [address] [phone] [place] [address] [place] [address] [address] [place] [address] documented as of this encounter Visit Diagnoses Not on filedocumented in this encounter Care Teams Posting Specialist Relationship Specialty Start Date End Date Meliton Washburn MD PCP - General Family Practice 03/30/22 documented as of this encounter
--- OUTSIDE RECORDS SUMMARY | 2024-06-06 23:47 | XMS_ITS | Encounter Summary ---
Author Organization [facility] Address [address] [place] [address] Care Team Providers Care Executive Coach Name Role Phone Meliton Washburn MD Primary Care Provider +1- [phone] Encounter Details Date Type Department Care Team ([facility] Contact Info) Description 09/12/2023 Orders Only [facility] Oncology and Hematology - Eusebio [address] [place] [address] Av Melendez MD [address] [place] [address] [facility] [address] [place] [address] Social History Tobacco Use Types Packs/Day [...] Upcoming Encounters Date Type Department Care Team ([facility] Contact Info) Description 11/05/2024 1:00 PM CDT Office Visit [facility] Oncology and Hematology - Eusebio Chint[address] [place] [address] Av Melendez MD [address] [place] [address] [facility] [address] [place] [address] documented as of this encounter Procedures Procedure Name Priority Date/Time Associated Diagnosis Comments COMPREHENSIVE METABOLIC PANEL Routine 09/09/2023 8:36 AM CDT documented in this encounter Results * COMPREHENSIVE METABOLIC PANEL (09/09/2023 8:36 AM CDT) Blood Av Melendez MD CHEMISTRY ORDERABLES documented in this encounter Visit Diagnoses Not on filedocumented in this encounter Care Teams Executive Coach Relationship Specialty Start Date End Date Meliton Washburn MD PCP - General Family Practice 03/30/22 documented as of this encounter
--- OUTSIDE RECORDS SUMMARY | 2024-06-06 23:48 | XMS_ITS | Encounter Summary ---
Author Organization [facility] Address [address] [facility] Attn: Epic Prelude ADT [place] [address] Care Team Providers Care Automobiles Salesperson Name Role Phone Meliton Washburn MD Primary Care Provider +1- [phone] Encounter Details Date Type Department Care Team [...] Description 11/05/2024 1:00 PM CDT Office Visit [facility] Oncology and Hematology - Eusebio [address] [facility] [address] [place] [address] Av Melendez MD [address] [facility] [address] [place] [address] documented as of this encounter Visit Diagnoses Not on filedocumented in this encounter Care Teams Automobiles Salesperson Relationship Specialty Start Date End Date Meliton Washburn MD PCP - General Family Practice 10/11/22 documented as of this encounter
--- OUTSIDE RECORDS SUMMARY | 2024-06-06 23:48 | XMS_ITS | Encounter Summary ---
Author Organization [facility] Address [address] [place] [address] Care Team Providers Care Specialist Wound Care Name Role Phone Meliton Washburn MD Primary Care Provider +1- [phone] Encounter Details Date Type Department Care Team [...] [facility] Oncology and Hematology - Eusebio [address] [place] [address] [address] [phone] [place] [address] [place] [address] [address] [place] [address] documented as of this encounter Visit Diagnoses Not on filedocumented in this encounter Care Teams Specialist Wound Care Relationship Specialty Start Date End Date Meliton Washburn MD PCP - General Family Practice 03/30/22 documented as of this encounter
--- OUTSIDE RECORDS SUMMARY | 2024-06-06 23:48 | XMS_ITS | Encounter Summary ---
Author Organization [facility] [employer] [facility] Address [address] [place] [address] Care Team Providers Care Concrete Batch Plant Operator Name Role Phone Meliton Washburn MD Primary Care Provider +1- [phone] Encounter Details Date Type Department Care Team ([facility] Contact Info) Description 03/31/2022 Orders Only [facility] Oncology and Hematology [facility] [address] [place] [address] Neisha Kennedy RN Chronic anemia Social History Tobacco Use Types [...] Care Team ([facility] Contact Info) Description 11/05/2024 1:00 PM CDT Office Visit [facility] Oncology and Hematology [facility] [address] [place] [address] Av Melendez MD [address] [facility] [address] [place] [address] documented as of this encounter Visit Diagnoses Diagnosis Chronic anemia Anemia, unspecified documented in this encounter Care Teams Concrete Batch Plant Operator Relationship Specialty Start Date End Date Meliton Washburn MD PCP - General Family Practice 03/30/22 documented as of this encounter
--- OUTSIDE RECORDS SUMMARY | 2024-06-06 23:48 | XMS_ITS | Encounter Summary ---
Author Organization [facility] Address [address] [place] [address] Care Team Providers Care Profile Trimmer Name Role Phone Meliton Washburn MD Primary Care Provider +1- [phone] Encounter Details Date Type Department Care Team (Late st Contact Info) Description 03/10/2023 External Device Data STL ABSTRACTION Provider, Abstract [...] [place] Oncology and Hematology - Eusebio [address] [place] [address] [address] [address] [phone] [place] [address] [place] [address] [address] [place] [address] documented as of this encounter Visit Diagnoses Not on filedocumented in this encounter Care Teams Profile Trimmer Relationship Specialty Start Date End Date Meliton Washburn MD PCP - General Family Practice 03/30/22 documented as of this encounter
--- OUTSIDE RECORDS SUMMARY | 2024-06-06 23:48 | XMS_ITS | Encounter Summary ---
Author Organization [facility] Address [address] [place] [address] Care Team Providers Care Real Estate Job Titles Name Role Phone Meliton Washburn MD Primary Care Provider +1- [phone] Encounter Details Date Type Department Care Team [...] 11/05/2024 1:00 PM CDT Office Visit [facility] Oncology and Hematology - Eusebio [address] [place] [address] [address] [place] [address] [phone] [place] [address] [place] [address] [address] [place] [address] documented as of this encounter Visit Diagnoses Not on filedocumented in this encounter Care Teams Real Estate Job Titles Relationship Specialty Start Date End Date Meliton Washburn MD PCP - General Family Practice 03/30/22 documented as of this encounter
--- OUTSIDE RECORDS SUMMARY | 2024-06-06 23:48 | XMS_ITS | Encounter Summary ---
Author Organization [facility] Red Seraph[facility] Address [address] [place] [address] Care Team Providers Care Mold Loft Worker Name Role Phone Meliton Washburn MD Primary Care Provider +1- [phone] Reason for Visit * Reason Comments Follow Up Encounter Details Date Type Department Care Team (Late st Contact Info) Description 06/08/2022 11:00 AM RADIATION CONTROL TECHNICIAN Office Visit [facility] Oncology and Hematology - Eusebio [address] [facility] [address] [place] [address] Av Melendez MD [address] [facility] [address] [place] [address] Chronic anemia (Primary Dx) Social [...] Coronavirus/COVID-19? No / Unsure 06/08/2022 10:46 AM RADIATION CONTROL TECHNICIAN documented as of this encounter Last Filed Vital Signs Vital Sign Reading Time Taken Comments Blood Pressure 142/63 06/08/2022 11:03 AM RADIATION CONTROL TECHNICIAN Pulse 55 06/08/2022 11:03 AM RADIATION CONTROL TECHNICIAN Temperature 36.4 ??C (97.5 ??F) 06/08/2022 11:[address] Respiratory Rate 16 06/08/2022 11:03 AM RADIATION CONTROL TECHNICIAN Oxygen Saturation 96% 06/08/2022 11:03 AM RADIATION CONTROL TECHNICIAN Inhaled Oxygen Concentration - - Weight 83.1 kg (183 lb 4.8 oz) 06/08/2022 11:03 AM RADIATION CONTROL TECHNICIAN Height - - Body Mass Index 24.86 [...] a tobacco user. 06/08/2022 Av Melendez MD ATION CONTROL TECHNICIAN documented in this encounter Plan of Treatment Upcoming Encounters Date Type Department Care Team (Late st Contact Info) Description 11/05/2024 1:00 PM CDT Office Visit [facility]3] Oncology and Hematology - Eusebio [address] [facility] [address] [place] [address] Av Melendez MD [address] [facility] [address] [place] [address] documented as of this encounter Visit Diagnoses Diagnosis Chronic anemia- Primary Anemia, unspecified documented in this encounter Care Teams Mold Loft Worker Relationship Specialty Start Date End Date Meliton Washburn MD PCP - General Family Practice 03/30/22 documented as of this encounter
--- OUTSIDE RECORDS SUMMARY | 2024-06-06 23:48 | XMS_ITS | Encounter Summary ---
Author Organization [facility] Address [address] [facility] Attn: Epic Prelude ADT [place] [address] Care Team Providers Care Vp Product Name Role Phone Meliton Washburn MD Primary Care Provider +1- [phone] Encounter Details Date Type Department Care Team [...] Description 11/05/2024 1:00 PM CDT Office Visit [facility] Oncology and Hematology - Eusebio [address] [facility] [address] [place] [address] Av Melendez MD [address] [facility] [address] [place] [address] documented as of this encounter Visit Diagnoses Not on filedocumented in this encounter Care Teams Vp Product Relationship Specialty Start Date End Date Meliton Washburn MD PCP - General Family Practice 10/11/22 documented as of this encounter
--- OUTSIDE RECORDS SUMMARY | 2024-06-06 23:48 | XMS_ITS | Encounter Summary ---
Author Organization [facility] [employer] [facility] Address [address] [place] [address] Care Team Providers Care Needle Loom Tender Name Role Phone Meliton Washburn MD Primary Care Provider +1- [phone] Encounter Details Date Type Department Care Team ([facility] Contact Info) Description 03/03/2023 Orders Only [facility] Oncology and Hematology - Eusebio [facility] [address] [place] [address] Av Melendez MD [address] [place] [address] [employer] [address] [place] [address] Social History Tobacco Use Types Packs/Day [...] Upcoming Encounters Date Type Department Care Team ([facility] Contact Info) Description 11/05/2024 1:00 PM CDT Office Visit [facility] Oncology and Hematology - Eusebio [address]int[address] [place] [address] Av Melendez MD [address] [place] [address] [employer] [address] [place] [address] documented as of this encounter Procedures Procedure Name Priority Date/Time Associated Diagnosis Comments IRON, TIBC, AND PERCENT SATURATION Routine 03/03/2023 3:58 PM CDT COMPREHENSIVE METABOLIC PANEL Routine 03/03/2023 12:42 PM CDT documented in this encounter Results * IRON, TIBC, AND PERCENT SATURATION (03/03/2023 3:58 PM CDT) Blood Av Melendez MD CHEMISTRY ORDERABLES * COMPREHENSIVE METABOLIC PANEL (03/03/2023 12:42 PM CDT) Blood Av Melendez MD CHEMISTRY ORDERABLES documented in this encounter Visit Diagnoses Not on filedocumented in this encounter Care Teams Needle Loom Tender Relationship Specialty Start Date End Date Meliton Washburn MD PCP - General Family Practice 03/30/22 documented as of this encounter
--- OUTSIDE RECORDS SUMMARY | 2024-06-06 23:48 | XMS_ITS | Encounter Summary ---
Author Organization [facility] Address [address] [facility] Attn: Epic Prelude ADT [place] [address] Care Team Providers Care Senior Manager Asset Protection Name Role Phone Meliton Washburn MD Primary Care Provider +1- [phone] Encounter Details Date Type Department Care Team [...] Description 11/05/2024 1:00 PM CDT Office Visit [facility] Oncology and Hematology - Eusebio [address] [facility] [address] [place] [address] Av Melendez MD [address] [facility] [address] [place] [address] documented as of this encounter Visit Diagnoses Not on filedocumented in this encounter Care Teams Senior Manager Asset Protection Relationship Specialty Start Date End Date Meliton Washburn MD PCP - General Family Practice 10/11/22 documented as of this encounter
--- OUTSIDE RECORDS SUMMARY | 2024-06-06 23:48 | XMS_ITS | Referral Summary ---
Author Organization [place] [address] Address [address] [facility] [address] [place] [address] Care Team Providers Care Manufacturing Engineering Manager Name Role Phone Meliton Washburn MD Primary Care Provider +1 -[phone] Encounters Date Type Department Care Team Description 04/09/2024 10:30 AM CDT Office Visit [facility] Medical [facility] Cardiology [address] [place] [address] [address] [place] [address] Karen Benjamin MD Hypertension associated with diabetes (HCC) (Primary Dx); Hyperlipidemia associated with type 2 diabetes mellitus (HCC); Nonrheumatic aortic valve stenosis; Aneurysm of ascending aorta without rupture (HCC) 04/06/2024 Telephone [facility] Medical [facility] Cardiology [address] [place] [address] [address] [place] [address] Karen Benjamin MD CTA order 03/21/2024 Telephone [facility] Medical Group Nephrology at [address] [place] [address] Sourav Park MD 03/20/2024 Orders Only [facility] Medical Group Nephrology at [address] [place] [address] ProviderChrist MD from Last 3 Months Allergies [...] Tobacco: Never Tobacco Cessation:Counseling Given: Not Answered [facility] Utilities Answer Date Recorded In the past 12 months has [facility] [employer], [employer], oil, or water [employer] threatened to shut off services in your [...] often do you attend chur ch or mormonism services? Never 10/24/2023 Do you belong to any clubs o r organizations such as restoration groups, unions, fraternal or athletic groups, or [...] place to sleep or slept in a longterm (including now)? No 10/24/2023 Personal Safety Answer Date Recorded Have you ever been in or are you currently in a harmful physical or emotional relationship or is someone making you feel afraid or unsafe? 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 Testing performed by: [facility], [address] [place] [address]., [address] Blood 10/27/2023 8:55 AM CDT 10/27/2023 9:00 AM CDT us Ingrid Cheek MD LAB BLOOD ORDERABLES Final Resul t [facility] [address] [facility] Department [place] [address] * (ABNORMAL) Hemoglobin A1c (10/24/2023 7:46 AM CDT) Pathologist [facility] Hgb A1C 6.9(H) 4.0 - 5.6 % Comment:Testing performed by : [address] [address] Estimated Average Glucose 151 mg/dL ALFREDO Comment: The ADA recommends reporting an estimated Average Glucose (eAG) with all Hemoglobin A1c results using the equation derived from a study of 507 normal and diabetic adults. ??Minority populations were underrepresented and children were not included. ?? (Diabetes Care 31:8437-8454, 2008). ??The eAG is not equivalent to a fasting glucose. Testing performed by: [address] [address] Blood 10/24/2023 7:46 AM CDT 10/24/2023 9:33 AM CDT us Jaren Goyal MD LAB BLOOD ORDERABLES Final Result ALFREDO [address] [facility] Department of Laboratories [place], [place] [id number] * Lipid panel (10/24/2023 7:46 AM CDT) [facility] Cholesterol 101 30 - 199 mg/dL Comment: [...] last revised on 2018. Testing performed by: [address] [address] Triglycerides 79 <=149 mg/dL ALFREDO Comment: Interpretive [...] last revised on 2018. Testing performed by: [address] [address] HDL 45 >=40 mg/dL ALFREDO Comment: Interpretive [...] last revised on 2018. Testing performed by: [address] [address] LDL, calculated 40 <=129 mg/dL ALFREDO Comment: [...] last revised on 2018. Testing performed by: [address] [address] Non-HDL Cholesterol 56 mg/dL ALFREDO PRESLEY Comment: [...] last revised on 2018. Testing performed by: [address] [address] Chol/HDL ratio 2 ALFREDO Comment:Testing performed by : [address] [address] Blood 10/24/2023 7:46 AM CDT 10/24/2023 9:33 AM CDT us Jaren Goyal MD LAB BLOOD ORDERABLES Final Result ALFREDO PRESLEY [address] [facility] Department [place] [address] from Last 3 Months or Most Recently Relevant to Health Maintenance Insurance MEDICARE [facility] MEDICARE MEDICARE [facility] Advance Directives For more information, please contact: [phone] * Full Code (Latest Code Status on File) Date Activated Date Inactivated Comments 10/23/2023 9:44 PM 10/27/2023 6:43 PM Care Teams Manufacturing Engineering Manager Relationship Specialty Start Date End Date Meliton Washburn MD PCP - General Family Medicine 04/01/22
--- OUTSIDE RECORDS SUMMARY | 2024-06-06 23:48 | XMS_ITS | Encounter Summary ---
Author Organization [facility] Address [address] [place] [address] Care Team Providers Care Band Master Name Role Phone Meliton Washburn MD Primary Care Provider +1- [phone] Encounter Details Date Type Department Care Team [...] [facility] Oncology and Hematology - [place] [address] [place] [address] [address] [place] [phone] [place] [address] [place] [address] [address] [place] [address] documented as of this encounter Visit Diagnoses Not on filedocumented in this encounter Care Teams Band Master Relationship Specialty Start Date End Date Meliton Washburn MD PCP - General Family Practice 03/30/22 documented as of this encounter
--- OUTSIDE RECORDS SUMMARY | 2024-06-06 23:48 | XMS_ITS | Encounter Summary ---
Author Organization [facility] Address [address] [place] [address] Care Team Providers Care Inspector And Unloader Name Role Phone Meliton Washburn MD Primary Care Provider [phone]- [phone] Reason for Visit * Reason Comments Follow Up Encounter Details Date Type Department Care Team ([facility] st Contact Info) Description 03/10/2023 1:15 PM CDT Office Visit [facility] Oncology and Hematology - [place] [address] [place] [address] [address] [place] [address] Av Melendez MD [address] [facility] [address] [place] [address] Chronic anemia (Primary Dx) Social [...] Description 11/05/2024 1:00 PM CDT Office Visit [facility] Oncology and Hematology - [place] [address] [facility] [address] [place] [address] Av Melendez MD [address] [facility] [address] [place] [address] documented as of this encounter Visit Diagnoses Diagnosis Chronic anemia- Primary Anemia, unspecified documented in this encounter Care Teams Inspector And Unloader Relationship Specialty Start Date End Date Meliton Washburn MD PCP - General Family Practice 03/30/22 documented as of this encounter
--- OUTSIDE RECORDS SUMMARY | 2024-06-06 23:48 | XMS_ITS | Encounter Summary ---
Author Organization [facility] Address [address] [place] [address]. [place], [place] [address] [place] [address] Care Team Providers Care Nurse Supervisor Name Role Phone [place] Stone MD Primary Care Provider [phone] Encounter Details Date Type Department Care Team [...] on filedocumented in this encounter Care Teams Nurse Supervisor Relationship Specialty Start Date End Date Dale Stone MD [address] [place] [address] PCP - General FAMILY PRACTICE 03/31/20 documented as of this encounter
--- OUTSIDE RECORDS SUMMARY | 2024-06-06 23:48 | XMS_ITS | Encounter Summary ---
Author Organization [facility] Healthcare Address [address] [place] [address] Care Team Providers Care Industrial Gas Production Operator Name Role Phone Meliton Washburn MD Primary Care Provider [phone] [phone] Reason for Visit * Reason Onset Date Comments CTA order 04/06/2024 Encounter Details Date Type Department Care Team (Late st Contact Info) Description 04/06/2024 Telephone [facility] Medical Group Cardiology [address] [place] [address] Karen Benjamin MD [address] [address] CTA order Social History Tobacco Use Types Packs/Day Years Used Date Smoking Tobacco: Former Cigarettes 0.5 50 S tarted: 1975 Smokeless Tobacco: Never [facility] Utilities Answer Date Recorded In the past 12 months has [employer] electric, gas, oil, or water company threatened [...] often do you attend chur ch or restorationist services? Never 10/24/2023 Do you belong to any clubs o r organizations such as lutheran groups, unions, fraternal or athletic groups, or [...] place to sleep or slept in a retirement (including now)? No 10/24/2023 Personal Safety Answer Date Recorded Have you ever been in or are you currently in a harmful physical or emotional relationship or is someone making you feel afraid or unsafe? 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 Sex Male 3:39 PM CHAR CONVEYOR TENDER Gender Identity Not on file Sexual Orientation [...] on filedocumented in this encounter Care Teams Industrial Gas Production Operator Relationship Specialty Start Date End Date Meliton Washburn MD PCP - General Family Medicine 04/01/22 documented as of this encounter
--- OUTSIDE RECORDS SUMMARY | 2024-06-06 23:48 | XMS_ITS | Encounter Summary ---
Author Organization [facility] MZL [employer] [facility] Address [address] [place] [address] Care Team Providers Care Mortgage Banker Name Role Phone Unavailable Primary Care Provider Unavailabl e Encounter Details Date Type Department Care Team (Late Contact Info) Description 03/18/2022 Abstract [facility] Oncology and Hematology [place] [address] [place] [phone] Av Melendez MD [address] [place] [address] [employer] [address] [place], [place] [phone] Social History Tobacco Use Types Packs/Day Years Used Date Smoking Tobacco: Never Assessed Sex and Gender Information Value Date Recorded Sex Assigned at Not on file Gender Identity Not on file Sexual Orientation Not on file documented as of this encounter Plan of Treatment Upcoming Encounters Date Type Department Care Team (Late st Contact Info) Description 11/05/2024 1:00 PM CDT Office Visit [facility] Oncology and Hematology [place] [address]int[address] [place] [address] [place] [address] [place] [address] [employer] [address] [place] [phone] documented as of this encounter Visit Diagnoses Not on filedocumented in this encounter
--- OUTSIDE RECORDS SUMMARY | 2024-06-06 23:48 | XMS_ITS | Encounter Summary ---
Author Organization [facility] Healthcare Address [address] [place] [address] Care Team Providers Care Supervisor Meter Repair Shop Name Role Phone Meliton Washburn MD Primary Care Provider [phone] Encounter Details Date Type Department Care Team (Late st Contact Info) Description 03/21/2024 Telephone [facility] Medical Group Nephrology at [address] [place] [address] Souarv Park MD [address] [place] [address] [address] [place] [address] Social History Tobacco Use Types Packs/Day Years Used Date Smoking Tobacco: Former Cigarettes 0.5 50 S tarted: 1975 Smokeless Tobacco: Never [facility] Utilities Answer Date Recorded In the past 12 months has [employer] electric, gas, oil, or water company threatened [...] on file Legal Sex Male 3:39 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
--- OUTSIDE RECORDS SUMMARY | 2024-06-06 23:48 | XMS_ITS | Encounter Summary ---
Author Organization [facility]] [employer] [facility] Address [address] [place] [address] Care Team Providers Care Creative Specialist Name Role Phone Meliton Washburn MD Primary Care Provider +1- [phone] Encounter Details Date Type Department Care Team (Late Contact Info) Description 09/02/2022 Orders Only [facility] Oncology and Hematology - [place] [address] [place] [address] Lula Sibley Chronic anemia Social [...] Description 11/05/2024 1:00 PM CDT Office Visit [facility] Oncology and Hematology - [place] [address] [place] [address] Av Melendez MD [address] [facility] [address] [place] [address] documented as of this encounter Visit Diagnoses Diagnosis Chronic anemia Anemia, unspecified documented in this encounter Care Teams Creative Specialist Relationship Specialty Start Date End Date Meliton Washburn MD PCP - General Family Practice 03/30/22 documented as of this encounter
--- OUTSIDE RECORDS SUMMARY | 2024-06-06 23:48 | XMS_ITS | Encounter Summary ---
Author Organization [facility] Address [address] [place] [address] Care Team Providers Care Pet Supplies Salesperson Name Role Phone Meliton Washburn MD Primary Care Provider +1- [phone] Encounter Details Date Type Department Care Team [...] [facility] Oncology and Hematology - [place] [address] [place] [address] [address] [place] [phone] [place] [address] [place] [address] [address] [place] [address] documented as of this encounter Visit Diagnoses Not on filedocumented in this encounter Care Teams Pet Supplies Salesperson Relationship Specialty Start Date End Date Meliton Washburn MD PCP - General Family Practice 03/30/22 documented as of this encounter
--- OUTSIDE RECORDS SUMMARY | 2024-06-06 23:48 | XMS_ITS | Encounter Summary ---
Author Organization [facility] Address [address] [facility] Attn: Epic Prelude ADT [place] [address] Care Team Providers Care Financial Services Director Name Role Phone Meliton Washburn MD Primary Care Provider +1- [phone] Encounter Details Date Type Department Care Team [...] Coronavirus/COVID-19? No / Unsure 06/08/2022 10:46 AM CODE NUMBER STAMPER documented as of this encounter Plan of Treatment Upcoming Encounters Date Type Department Care Team (Late st Contact Info) Description 11/05/2024 1:00 PM CDT Office Visit [facility] Oncology and Hematology - [place] [address] [facility] 200 [place] [address] Av Melendez MD 2[address] [facility] [address] [place] [address] documented as of this encounter Visit Diagnoses Not on filedocumented in this encounter Care Teams Financial Services Director Relationship Specialty Start Date End Date Meliton Washburn MD PCP - General Family Practice 03/30/22 documented as of this encounter
--- OUTSIDE RECORDS SUMMARY | 2024-06-06 23:48 | XMS_ITS | Encounter Summary ---
Author Organization [facility] Address [address] [place] [address] Care Team Providers Care Airport Planner Name Role Phone Meliton Washburn MD Primary Care Provider +1- [phone] Encounter Details Date Type Department Care Team [...] [facility] On[facility] Hematology - [place] [address] [place] [address] [address] [place] [phone] [place] [address] [place] [address] [address] [place] [address] documented as of this encounter Visit Diagnoses Not on filedocumented in this encounter Care Teams Airport Planner Relationship Specialty Start Date End Date Meliton Washburn MD PCP - General Family Practice 03/30/22 documented as of this encounter
--- OUTSIDE RECORDS SUMMARY | 2024-06-06 23:48 | XMS_ITS | Clinical Summary ---
Author Organization [facility] [address] Address [address] [place] [address] Care Team Providers Care Cook Seafood Name Role Phone Meliton Washburn MD Primary Care Provider +1 -[phone] Allergies Active Allergy Reactions Criticality Noted Date [...] Description 04/09/2024 10:30 AM CDT Office Visit [facility] Medical Group Cardiology [address] [facility] [address] [place] [address] Karen Benjamin MD Hypertension associated with diabetes (HCC) (Primary Dx); Hyperlipidemia associated with type 2 diabetes mellitus (HCC); Nonrheumatic aortic valve stenosis; Aneurysm of ascending aorta without rupture (HCC) 04/06/2024 Telephone [facility] Medical [facility] Cardiology [address] [facility] [address] [place] [address] Karen Benjamin MD CTA order 03/21/2024 Telephone [facility] Medical Group Nephrology at [address] [place] [address] Sourav Park MD 03/20/2024 Orders Only [facility] Nephrology at [address] [place] [address] ProviderChrist MD from Last 3 Months Surgical [...] Tobacco: Never Tobacco Cessation:Counseling Given: Not Answered [facility] Utilities Answer Date Recorded In [...] often do you attend chur ch or yazidism services? Never 10/24/2023 Do you belong to any clubs o r organizations such as christian groups, unions, fraternal or athletic groups, or [...] on file Legal Sex Male 3:39 PM [employer] Gender Identity Not on file Sexual Orientation [...] was last reviewed 2021. Testing performed by: [address] [address] Blood 10/27/2023 8:55 AM CDT 10/27/2023 9:00 AM CDT us Ingrid Cheek MD LAB BLOOD ORDERABLES Final Resul t ALFREDO [address] [facility] [place] [address] * (ABNORMAL) Hemoglobin A1c (10/24/2023 7:46 AM CDT) [facility] Hgb A1C 6.9(H) 4.0 - 5.6 % Comment:Testing performed by : [address] [address] Estimated Average Glucose 151 mg/dL ALFREDO Comment: The ADA recommends reporting an estimated Average Glucose (eAG) with all Hemoglobin A1c results using the equation derived from a study of 507 normal and diabetic adults. ??Minority populations were underrepresented and children were not included. ?? (Diabetes Care 31:9733-8596, 2008). ??The eAG is not equivalent to a fasting glucose. Testing performed by: [address] [address] Blood 10/24/2023 7:46 AM CDT 10/24/2023 9:33 AM CDT us Jaren Goyal MD LAB BLOOD ORDERABLES Final Result ALFREDO [address] [facility] Department [place] [address] * Lipid panel (10/24/2023 7:46 AM CDT) [facility] Cholesterol 101 30 - 199 mg/dL Comment: [...] last revised on 2018. Testing performed by: [facility], [address] [place] [address]., [address] Triglycerides 79 <=149 mg/dL ALFREDO Comment: Interpretive [...] last revised on 2018. Testing performed by: [address] [address] HDL 45 >=40 mg/dL ALFREDO Comment: Interpretive [...] last revised on 2018. Testing performed by: [address] [address] LDL, calculated 40 <=129 mg/dL ALFREDO Comment: [...] last revised on 2018. Testing performed by: [address] [address] Non-HDL Cholesterol 56 mg/dL ALFREDO Comment: Interpretive [...] last revised on 2018. Testing performed by: [address] [address] Chol/HDL ratio 2 ALFREDO Comment:Testing performed by : [facility], [address] [place] [address]., [address] Blood 10/24/2023 7:46 AM CDT 10/24/2023 9:33 AM CDT us Jaren Goyal MD LAB BLOOD ORDERABLES Final Result ALFREDO [address] [facility] [place] [address] from Last 3 Months or Most Recently Relevant to Health Maintenance Insurance MEDICARE [facility] MEDICARE MEDICARE [employer] [place] Advance Directives For more information, please contact: [phone] * Full Code (Latest Code Status on File) Date Activated Date Inactivated Comments 10/23/2023 9:44 PM 10/27/2023 6:43 PM Care Teams Cook Seafood Relationship Specialty Start Date End Date Meliton Washburn MD PCP - General Family Medicine 04/01/22
--- OUTSIDE RECORDS SUMMARY | 2024-06-06 23:48 | XMS_ITS | Encounter Summary ---
Author Organization [facility] [employer] [facility] Address [address] [place] [address] Care Team Providers Care Woodworker Helper Name Role Phone Meliton Washburn MD Primary Care Provider +1- [phone] Reason for Visit * Reason Comments Follow Up Encounter Details Date Type Department Care Team ([facility] st Contact Info) Description 09/09/2022 1:45 PM CDT Office Visit [facility] Oncology and Hematology - [place] [address] [place] [address] Dax Matos MD [address] [place] [address] Chronic anemia (Primary Dx) Social [...] Description 11/05/2024 1:00 PM CDT Office Visit [facility] Oncology and Hematology - [place] [address] [place] [address] 200 [place] [address] vA Melendez MD [address] [facility] [address] [place] [address] documented as of this encounter Visit Diagnoses Diagnosis Chronic anemia- Primary Anemia, unspecified documented in this encounter Care Teams Woodworker Helper Relationship Specialty Start Date End Date Meliton Washburn MD PCP - General Family Practice 03/30/22 documented as of this encounter
--- OUTSIDE RECORDS SUMMARY | 2024-06-06 23:48 | XMS_ITS | Encounter Summary ---
Author Organization [facility] Address [address] [place] [address]. [place], [place] [address] [place] [address] Care Team Providers Care Gm Mobile Name Role Phone Dale Stone MD Primary Care Provider Reason for Visit * Imaging (Routine) - Closed Specialty Diagnoses / Procedures Referred By Contac t Referred To Contact RADIOLOGY Diagnoses Arterial insufficiency of lower extremity (CMS/HCC) Procedures [facility] [facility] Johan Cuellar MD [address] [facility] [address] [address] Phone: tel: fax: Referral ID Status Reason Start Date Expiration Date Visits Re quested Visits Authorized [id number] Closed 03/31/2020 05/01/2021 1 1 Encounter Details Date Type Department Care Team (Latest Contact Info) Description 03/31/2020 9:30 AM CDT - 03/31/2020 11:59 PM CDT Hospital Encounter [facility] Ultrasound [address] [place] [address] Johan Cuellar MD [address] [facility] [address] [address] Discharge Disposition: Home or Self [...] Procedure Name Priority Date/Time Associated Diagnosis Comments Sossee JUAN Routine 03/31/2020 11:48 AM CDT Arterial insufficiency of lower extremity documented in this encounter Results * Sossee JUAN (03/31/2020 11:48 AM CDT) Anatomical Region Laterality Modality Extremity Ultrasound 03/31/2020 11:5 3 AM CDT Impressions 03/31/2020 11:54 AM CDT IMPRESSION: Mild right-sided peripheral vascular disease with normal ankle-brachial indices bilaterally.. Interpreted By: iVtaly Dover, 03/31/2020 11:53 AM Narrative 03/31/2020 11:54 AM CDT EXAMINATION: Sossee JUAN INDICATIONS: Peripheral vascular disease, unspecified COMPARISON: [...] Note Vitaly Dover MD - 03/31/2020 EXAMINATION: Sossee JUAN INDICATIONS: Peripheral vascular disease, unspecified COMPARISON: [...] (CMS/HCC) documented in this encounter Care Teams Gm Mobile Relationship Specialty Start Date End Date Dale Stone MD [address] [place] [address] PCP - General FAMILY PRACTICE 03/31/20 documented as of this encounter
--- OUTSIDE RECORDS SUMMARY | 2024-06-06 23:48 | XMS_ITS | Encounter Summary ---
Author Organization [facility] [employer] [facility] Address [address] [place] [address] Care Team Providers Care Protection Engineer Name Role Phone Meliton Washburn MD Primary Care Provider +1- [phone] Encounter Details Date Type Department Care Team (Late st Contact Info) Description 09/03/2022 Orders Only [facility] Oncology and Hematology - Eusebio [address] [place] [address] Icenogle Jessica Chronic anemia Social [...] Hematology - Eusebio [address] [place] [address] Av Melendez MD [address] [facility] [address] [place] [address] documented as of this encounter Visit Diagnoses Diagnosis Chronic anemia Anemia, unspecified documented in this encounter Care Teams Protection Engineer Relationship Specialty Start Date End Date Meliton Washburn MD PCP - General Family Practice 03/30/22 documented as of this encounter
--- OUTSIDE RECORDS SUMMARY | 2024-06-06 23:48 | XMS_ITS | Encounter Summary ---
Author Organization [facility] Address [address] [place] [address] Care Team Providers Care Log Peeler Name Role Phone Meliton Washburn MD Primary Care Provider +1- [phone] Encounter Details Date Type Department Care Team [...] Description 11/05/2024 1:00 PM CDT Office Visit [facility] Oncology and Hematology - Eusebio [address] [place] [address] [address] [place] [phone] [place] [address] [place] [address] [address] [place] [address] documented as of this encounter Visit Diagnoses Not on filedocumented in this encounter Care Teams Log Peeler Relationship Specialty Start Date End Date Meliton Washburn MD PCP - General Family Practice 03/30/22 documented as of this encounter
--- OUTSIDE RECORDS SUMMARY | 2024-06-06 23:48 | XMS_ITS | Encounter Summary ---
Author Organization [facility] Healthcare Address [address] [place] [address] Care Team Providers Care Shirt Hemmer Name Role Phone Meliton Washburn MD Primary Care Provider +1 -[phone] Reason for Visit * Reason Comments Follow-up 8 mo f/u Hypertension Mild Encounter Details Date Type Department Care Team (Late st Contact Info) Description 04/09/2024 10:30 AM CDT Office Visit [facility] Medical Group Cardiology [address] [place] [address] Karen Benjamin MD [address] [place] [address] Hypertension associated with diabetes (HCC) (Primary Dx); Hyperlipidemia associated with type 2 diabetes mellitus (HCC); Nonrheumatic aortic valve stenosis; Aneurysm of ascending aorta without rupture (HCC) Social History Tobacco Use Types Packs/Day Years Used Date Smoking Tobacco: Former Cigarettes 0.5 50 S tarted: 1974 Smokeless Tobacco: Never [facility] Utilities Answer Date Recorded In the past 12 months has [employer], gas, oil, or water company threatened [...] week 10/24/2023 How often do you attend [facility] or [facility] services? Never 10/24/2023 Do you belong to any clubs o r organizations such as zoroastrianism groups, unions, fraternal or athletic groups, or [...] place to sleep or slept in a fpc (including now)? No 10/24/2023 Personal Safety Answer Date Recorded Have you ever been in or are you currently in a harmful physical or emotional relationship or is someone making you feel afraid or unsafe? 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 04/01/2022 hospital follow-up with [facility]: He was hospitalized at [facility] 02/12-02/16 for complaint of chest pain and [...] accompanied by his . Was hospitalized at [facility] October 2023 for hyponatremia at that [...] nasal spray metFORMIN (GLUCOPHAGE) 500 mg tablet gzycwuikeyiz-hygawtwb-sduvyf (Multivitamin 50 Plus) tablet omeprazole (PriLOSEC) 20 [...] Apparently patient had repeat CT scan at [facility] February 11, 2022 and reported stable ectasia [...] (HCC) documented in this encounter Care Teams Shirt Hemmer Relationship Specialty Start Date End Date Meliton Washburn MD PCP - General Family Medicine 04/01/22 documented as of this encounter
--- OUTSIDE RECORDS SUMMARY | 2024-06-06 23:48 | XMS_ITS | Encounter Summary ---
Author Organization [facility] Address [address] [facility] Attn: Epic Prelude ADT [place] [address] Care Team Providers Care Pencils Washer Name Role Phone Meliton Washburn MD Primary Care Provider +1- [phone] Encounter Details Date Type Department Care Team [...] Coronavirus/COVID-19? No / Unsure 06/11/2022 11:00 AM CLEANER AND DYER documented as of this encounter Plan of Treatment Upcoming Encounters Date Type Department Care Team (Late st Contact Info) Description 11/05/2024 1:00 PM CDT Office Visit [facility] Oncology and Hematology - Eusebio [address] [facility] [address] [place] [address] Av Melendez MD [address] [facility] [address] [place] [address] documented as of this encounter Visit Diagnoses Not on filedocumented in this encounter Care Teams Pencils Washer Relationship Specialty Start Date End Date Meliton Washburn MD PCP - General Family Practice 03/30/22 documented as of this encounter
--- OUTSIDE RECORDS SUMMARY | 2024-06-06 23:48 | XMS_ITS | Encounter Summary ---
Author Organization [facility] [employer] [facility] Address [address] [place] [address] Care Team Providers Care Corporate Driver Name Role Phone Meliton Washburn MD Primary Care Provider +1- [phone] Encounter Details Date Type Department Care Team ([facility] Contact Info) Description 06/16/2022 Orders Only [facility] Oncology and Hematology [facility] [address] [place] [address] [address] [place] [address] Lula Sibley Chronic anemia Social [...] Coronavirus/COVID-19? No / Unsure 06/11/2022 11:00 AM FSR documented as of this encounter Plan of Treatment Upcoming Encounters Date Type Department Care Team ([facility] Contact Info) Description 11/05/2024 1:00 PM CDT Office Visit [facility] Oncology and [place] [address] [place] [address] Av Melendez MD [address] [facility] [address] [place] [address] documented as of this encounter Visit Diagnoses Diagnosis Chronic anemia Anemia, unspecified documented in this encounter Care Teams Corporate Driver Relationship Specialty Start Date End Date Meliton Washburn MD PCP - General Family Practice 03/30/22 documented as of this encounter
--- OUTSIDE RECORDS SUMMARY | 2024-06-06 23:48 | XMS_ITS | Encounter Summary ---
Author Organization [facility] Healthcare Address [address] [place] [address] Care Team Providers Care Financial Health Counselor Name Role Phone Meliton Washburn MD Primary Care Provider +1 -[phone] Encounter Details Date Type Department Care Team (Late st Contact Info) Description 12/20/2023 Telephone [facility] Medical Group Nephrology at [address] [place] [address] Sourav Park MD [address] [place] [address] [address] [place] [address] Social History Tobacco Use Types Packs/Day Years Used Date Smoking Tobacco: Former Cigarettes 0.5 50 S tarted: 1975 Smokeless Tobacco: Never [facility] Utilities Answer Date Recorded In the past 12 months has [employer] electric, gas, oil, or water company threatened [...] often do you attend chur ch or christianity services? 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
--- OUTSIDE RECORDS SUMMARY | 2024-06-06 23:48 | XMS_ITS | Encounter Summary ---
Author Organization [facility] Healthcare Address [address] [place] [address] Care Team Providers Care Keno Writer/Runner Name Role Phone Meliton Washburn MD Primary Care Provider +1 -[phone] Reason for Visit * Reason Comments Abnormal [facility] f/u Encounter Details Date Type Department Care Team (Late st Contact Info) Description 12/21/2023 2:45 PM CDT Office Visit [facility] Medical Group Nephrology at [address] [place] [address] Sourav Park MD [address] [place] [address] [address] Hyponatremia (Primary Dx) Social History Tobacco Use Types Packs/Day Years Used Date Smoking Tobacco: Former Cigarettes 0.5 50 S tarted: 1975 Smokeless Tobacco: Never Tobacco Cessation:Counseling Given: Not Answered [facility] Utilities Answer Date Recorded In the past 12 months has [employer], [employer], or water [employer] threatened to shut off services in your [...] How often do you attend chur or mosque services? 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 This lab was done at [facility] and is underthe media section [...] by mouth 2 (two) times a day thkrtbiaawuy-yaxzjmzv-eprtyj (Multivitamin 50 Plus) tablet Take by mouth [...] importance of checking his labs as ordered. Catering Associate completed by using [employer] Fluency Direct speaking software, therefore, transcriptionvariances may occur Sourav Park MD [facility] Medical Group [facility] Nephrology and Hypertension Office: [phone] documented in this encounter Plan of Treatment [...] daily added in this encounter Care Teams Keno Writer/Runner Relationship Specialty Start Date End Date Meliton Washburn MD PCP - General Family Medicine 04/01/22 documented as of this encounter
--- OUTSIDE RECORDS SUMMARY | 2024-06-06 23:48 | XMS_ITS | Clinical Summary ---
Author Organization [facility] Address [address] [place] [address]. [place], [place] [address] [place] [address] Care Team Providers Care Produce Specialist Name Role Phone Dale Stone MD Primary Care Provider [phone] Social History Tobacco Use Types Packs/Day Years [...] patient's age to complete this topic Insurance [facility] MEDICARE Care Teams Produce Specialist Relationship Specialty Start Date End Date Dale Stone MD [address] [place] [address] PCP - General FAMILY PRACTICE 03/31/20
--- OUTSIDE RECORDS SUMMARY | 2024-06-06 23:48 | XMS_ITS | Encounter Summary ---
Author Organization [facility] [employer] [facility] Address [address] [place] [address] Care Team Providers Care Successfactors Consultant Name Role Phone Meliton Washburn MD Primary Care Provider +1- [phone] Encounter Details Date Type Department Care Team (Late Contact Info) Description 04/01/2022 Abstract [facility] [place] [facility]cology [facility] Hematology [facility] [address] [place] [address] Av Melendez MD [facility] dbTwang [address] [place] [address] Social History Tobacco Use Types Packs/Day [...] Office Visit [facility] [place] Oncology and Hematology [facility] [address] [place] [address] Av Melendez MD [address] [place] [address] documented as of this encounter Visit Diagnoses Not on filedocumented in this encounter Care Teams Successfactors Consultant Relationship Specialty Start Date End Date Meliton Washburn MD PCP - General Family Practice 03/30/22 documented as of this encounter
--- OUTSIDE RECORDS SUMMARY | 2024-06-06 23:48 | XMS_ITS | Encounter Summary ---
Author Organization [facility] Healthcare Address [address] [place] [address] Care Team Providers Care Event Marketing Representative Name Role Phone Meliton Washburn MD Primary Care Provider [phone] [phone] Encounter Details Date Type Department Care Team (Late st Contact Info) Description 03/20/2024 Orders Only [facility] Medical Group Nephrology at [address] [place] [address] ProviderChrist MD [address] [place] [address] Social History Tobacco Use Types Packs/Day Years Used Date Smoking Tobacco: Former Cigarettes 0.5 50 S tarted: 1975 Smokeless Tobacco: Never [facility] Utilities Answer Date Recorded In the [...] often do you attend chur ch or anabaptist services? Never 10/24/2023 Do you belong to any clubs o r organizations such as adventism groups, unions, fraternal or athletic groups, or [...] place to sleep or slept in a mcc (including now)? No 10/24/2023 Personal Safety Answer Date Recorded Have you ever been in or are you currently in a harmful physical or emotional relationship or is someone making you feel afraid or unsafe? 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
--- OUTSIDE RECORDS SUMMARY | 2024-06-06 23:48 | XMS_ITS | Encounter Summary ---
Author Organization [facility] [employer] [facility] Address [address] [place] [address] Care Team Providers Care Wheat Grower Name Role Phone Meliton Washburn MD Primary Care Provider [phone] Encounter Details Date Type Department Care Team (Late st Contact Info) Description 06/11/2022 11:00 AM WASH DRILLER HELPER Telephone Check Up [facility] Oncology and Hematology - Eusebio [address] [place] [address] [address] [place] [address] Av Melendez MD [address] [facility] [address] [place] [address] Chronic anemia (Primary Dx) Social [...] Coronavirus/COVID-19? No / Unsure 06/11/2022 11:00 AM WASH DRILLER HELPER documented as of this encounter Progress Notes [...] a tobacco user. 06/11/2022 Av Melendez MD DRILLER HELPER documented in this encounter Plan of Treatment Upcoming Encounters Date Type Department Care Team (Late st Contact Info) Description 11/05/2024 1:00 PM CDT Office Visit [facility] Oncology and Hematology - Eusebio [address] [place] [address] Av Melendez MD [address] [facility] [address] [place] [id number] Scheduled Orders Name Type Priority Associated Diagnoses Orde r Schedule CBC WITH DIFFERENTIAL Lab Stat Chronic anemia Expected: 09/03/2022, Expires: 06/11/2023 FERRITIN Lab Routine Chronic anemia Expected: 09/03/2022, Expires: 06/11/2023 IRON, TIBC, AND PERCENT SATURATION Lab Routine Chronic anemia Expected: 09/03/2022, Expires: 06/11/2023 documented as of this encounter Visit Diagnoses Diagnosis Chronic anemia- Primary Anemia, unspecified documented in this encounter Care Teams Wheat Grower Relationship Specialty Start Date End Date Meliton Washburn MD PCP - General Family Practice 03/30/22 documented as of this encounter
--- OUTSIDE RECORDS SUMMARY | 2024-06-06 23:48 | XMS_ITS | Encounter Summary ---
Author Organization [facility] Address [address] [place] [address] Care Team Providers Care Admitting Clerk Name Role Phone Meliton Washburn MD Primary Care Provider [phone]- [phone] Encounter Details Date Type Department Care Team [...] 11/05/2024 1:00 PM CDT Office Visit [facility] Oncology and Hematology - Eusebio [address] [place] [address] [address] [place] [phone] [place] [address] [place] [address] [address] [place] [address] documented as of this encounter Visit Diagnoses Not on filedocumented in this encounter Care Teams Admitting Clerk Relationship Specialty Start Date End Date Meliton Washburn MD PCP - General Family Practice 03/30/22 documented as of this encounter
--- OUTSIDE RECORDS SUMMARY | 2024-06-06 23:48 | XMS_ITS | Encounter Summary ---
Author Organization [facility] [employer] [facility] Address [address] [place] [address] Care Team Providers Care Boiler Coverer Name Role Phone Meliton Washburn MD Primary Care Provider [phone]- [phone] Encounter Details Date Type Department Care Team (Late st Contact Info) Description 04/06/2022 3:45 PM CDT Telephone Check Up [facility] Oncology and Hematology - Eusebio [address] [place] [address] [address] [place] [address] Av Melendez MD [address] [facility] [address] [place] [address] Chronic anemia (Primary Dx) Social [...] [facility] Oncology and Hematology - Eusebio [address] [place] [address] Av Melendez MD [address] [facility] [address] [place] [address] Scheduled Orders Name Type Priority Associated Diagnoses Orde r Schedule VITAMIN B12 AND FOLATE Lab Routine Chronic anemia Expected: 06/01/2022, Expires: 04/06/2023 documented as of this encounter Visit Diagnoses Diagnosis Chronic anemia- Primary Anemia, unspecified documented in this encounter Care Teams Boiler Coverer Relationship Specialty Start Date End Date Meliton Washburn MD PCP - General Family Practice 03/30/22 documented as of this encounter
--- OUTSIDE RECORDS SUMMARY | 2024-06-06 23:49 | XMS_ITS | Encounter Summary ---
Author Organization [facility] Medical Group Address [address] [facility] [address] [place] [address] Care Team Providers Care Manager Of Exhibitions And Collections Name Role Phone Meliton Washburn MD Primary Care Provider [phone] [phone] Encounter Details Date Type Department Care Team (Late st Contact Info) Description 04/02/2022 Orders Only [facility] Medical Group Cardiology [address] [facility] [address] [place] [address] Kay Husain NP [address] [place] [address] Irregular heart beat Social History Tobacco Use Types Packs/Day Years Used Date Smoking Tobacco: Former Cigarettes 0.5 50 S tarted: 1975 Smokeless Tobacco: Never Sex and Gender Information Value Date Recorded Sex Assigned at Not on file 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
--- OUTSIDE RECORDS SUMMARY | 2024-06-06 23:49 | XMS_ITS | Encounter Summary ---
Author Organization [facility] Address [address] [facility] [address] [address] Care Team Providers Care Infection Prevention Coordinator Name Role Phone Tapan Stone MD Primary Care Provider [phone] Reason for Visit * Diagnostic Imaging (Routine) - Closed Specialty Diagnoses / Procedures Referred By Contac t Referred To Contact Diagnoses Chest pain, unspecified type Essential hypertension Murmur, heart Procedures NM MPI SPECT (Rest and/or Stress) Multiple Studies Tapan Stone MD [address] [place] [address] Phone: tel: fax: [facility] Referral ID Status Reason Start Date Expiration Date Visits Re quested Visits Authorized [id number] Closed 08/18/2021 09/17/2022 1 1 Encounter Details Date Type Department Care Team (Latest Contact Info) Description 09/21/2021 9:15 AM CDT Ancillary Procedure [facility] Cardiology [address] [place] [address] Chest pain, unspecified type; Essential hypertension; Murmur, heart Social History Tobacco Use Types Packs/Day Years Used Date Smoking Tobacco: Never Assessed Sex and Gender Information Value Date Recorded Sex Assigned at Not on file 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 Gender Identity Not on file Sexual [...] AM CDT Narrative 09/21/2021 3:28 PM CDT [facility] Cardiology [address] [facility] [address], [place] [address] [address] [facility] [address], [place] [address] P:[phone] P:[phone] MPI Imaging Report Patient Name: MELITON CARREON : 100 Study Date: 09/21/2021 9:45:38 AM Gender: M Tech: [facility] Location: [place] Ref.Provider: Tapan STONE Height(Cm): 182.8 BSA: Weight(Kg): [...] Procedure Note Jamshid Carlson MD - 09/21/2021 [facility] Cardiology [address] [facility] [address] [address] [address] [facility] [address], [place] [address] P:[phone] P:[phone] MPI Imaging Report Patient Name: MELITON CARREONPatient ID: [id number] : [id number] Date: 09/21/2021 9:45:38 AM Gender: MAccession #: [id number] Tech: MTLocation: [place] Ref.Provider: Kulwant STONE(Cm): 182.8 BSA: Weight(Kg): 86.3 [...] Carlson MD 2021-09-21 15:28:06 CDT CC: CC: [facility] Duane Stone MD [facility] PROCEDURES Final Result documented in this [...] millicuries documented in this encounter Care Teams Infection Prevention Coordinator Relationship Specialty Start Date End Date Tapan Stone MD [address] [place] [address] PCP - General Family Medicine 08/05/21 03/31/22 documented as of this encounter
--- OUTSIDE RECORDS SUMMARY | 2024-06-06 23:49 | XMS_ITS | Encounter Summary ---
Author Organization [facility] Address [address] [facility] [address] [place] [address] Care Team Providers Care Chief Unit Forester Name Role Phone Tapan Stone MD Primary Care Provider Encounter Details Date Type Department Care Team (Late st Contact Info) Description 08/18/2021 Orders Only [facility] Cardiology [address] [facility] [address] [place] [address] ProviderChrist MD [address] [place] [id number] Social History Tobacco Use Types Packs/Day Years Used Date Smoking Tobacco: Never Assessed Sex and Gender Information Value Date Recorded Sex Assigned at Not on file 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
--- OUTSIDE RECORDS SUMMARY | 2024-06-06 23:49 | XMS_ITS | Encounter Summary ---
Author Organization [facility] Healthcare Address [address] [place] [address] Care Team Providers Care Rn Home Health Name Role Phone Meliton Washburn MD Primary Care Provider [phone] Reason for Visit * Cardiology (Routine) - Closed Specialty Diagnoses / Procedures Referred By Contac t Referred To Contact Diagnoses TIA (transient ischemic attack) Procedures Event Monitor Kay Husain NP [address] [address] Phone: tel: fax: [facility] Referral ID Status Reason Start Date Expiration Date Visits Re quested Visits Authorized [id number] Closed 07/26/2023 08/24/2024 1 1 Encounter Details Date Type Department Care Team (Latest Contact Info) Description 07/26/2023 9:00 AM MAINTENANCE REPRESENTATIVE Ancillary Procedure [facility] Cardiology [address] [facility] [address] [address] TIA (transient ischemic attack) Social History Tobacco Use Types Packs/Day Years Used Date Smoking Tobacco: Former Cigarettes 0.5 50 S tarted: 1975 Smokeless Tobacco: Never Personal Safety Answer Date Recorded Getting School Help Needed Not on file 06/24 Sex and Gender Information Value Date Recorded Sex Assigned at Not on file Legal Sex Male 3:39 PM 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 REPRESENTATIVE Gender Identity Not on file Sexual Orientation Not on file documented as of this encounter Plan of Treatment Not on file documented as of this encounter Procedures Procedure Name Priority Date/Time Associated Diagnosis Comments EVENT MONITOR Routine 08/17/2023 3:59 PM MAINTENANCE REPRESENTATIVE TIA (transient ischemic attack) documented in this encounter Results * Event Monitor (08/17/2023 3:59 PM MAINTENANCE REPRESENTATIVE) Anatomical Region Laterality Modality Other Narrative 08/17/2023 4:02 PM MAINTENANCE REPRESENTATIVE AMBULATORY MANAGER MULTIMEDIA REPORT Patient Name: Meliton Delacruz Date of [...] was used to complete this document, therefore, flux tube attendant variances may occur. Ugo Guevara MD, [facility] 08/17/23 Procedure Note Ugo Guevara MD - 08/17/2023 AMBULATORY MANAGER MULTIMEDIA REPORT Patient Name: Meliton Delacruz Date of [...] software was used to complete this document, therefore,flux tube attendant variances may occur. Ugo Guevara MD, [facility] 08/17/23 Kay Husain BUSINESS PLANNING MANAGER [facility] Final Result documented in this encounter Visit Diagnoses Diagnosis TIA (transient ischemic attack) Unspecified transient cerebral ischemia documented in this encounter Care Teams Rn Home Health Relationship Specialty Start Date End Date Meliton Washburn MD PCP - General Family Medicine 04/01/22 documented as of this encounter
--- OUTSIDE RECORDS SUMMARY | 2024-06-06 23:49 | XMS_ITS | Encounter Summary ---
Author Organization [facility] Address [address] [place] [address] Care Team Providers Care Pharmaceutical Detailer Name Role Phone Tapan Stone MD Primary Care Provider [phone] Reason for Visit * Cardiology (Routine) - Closed Specialty Diagnoses / Procedures Referred By Contac t Referred To Contact Diagnoses Chest tightness SOB (shortness of breath) Procedures Event Monitor, 30 Day Event Tapan Stone MD [address] [place] [address] Phone: tel: fax: [facility] Referral ID Status Reason Start Date Expiration Date Visits Re quested Visits Authorized [id number] Closed 08/05/2021 09/04/2022 1 1 Encounter Details Date Type Department Care Team (Latest Contact Info) Description 08/05/2021 3:30 PM SUSTAINABILITY COMMUNICATOR Ancillary Procedure [facility] Medical [facility] Cardiology [address] [place] [address] Chest tightness; SOB (shortness of breath) Social History Tobacco Use Types Packs/Day Years Used Date Smoking Tobacco: Never Assessed Sex and Gender Information Value Date Recorded Sex Assigned at Not on file Legal Sex Male 3:39 PM SUSTAINABILITY COMMUNICATOR Gender Identity Not on file Sexual Orientation Not on file documented as of this encounter Plan of Treatment Pending Results Name Type Priority Associated Diagnoses Date /Time Event Monitor, 30 Day Event Cardiac Services Routine Chest tightness SOB (shortness of breath) 08/05/2021 4:14 PM SUSTAINABILITY COMMUNICATOR documented as of this encounter Visit Diagnoses Diagnosis Chest tightness Other chest pain SOB (shortness of breath) Shortness of breath documented in this encounter Care Teams Pharmaceutical Detailer Relationship Specialty Start Date End Date Tapan Stone MD [address] [place] [address] PCP - General Family Medicine 08/05/21 03/31/22 documented as of this encounter
--- OUTSIDE RECORDS SUMMARY | 2024-06-06 23:49 | XMS_ITS | Encounter Summary ---
Author Organization [facility] Address [address] [place] [address] Care Team Providers Care Salvage Engineering Technician Name Role Phone Meliton Washburn MD Primary Care Provider [phone] Reason for Visit * Reason Comments Follow-up 6 mo f/u Hypertension Irregular Heart Beat Encounter Details Date Type Department Care Team ([facility] st Contact Info) Description 10/04/2022 10:00 AM CDT Office Visit [facility] Cardiology [address] [place] [address] Karen Benjamin MD [address] [place], [place] [id number] Aneurysm of ascending aorta without rupture (HCC) [...] on file 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 04/01/2022 hospital follow-up with DIAZO TECHNICIAN: He was hospitalized at [place] 02/12-02/16 for complaint of chest pain and [...] mg tablet metFORMIN (GLUCOPHAGE) 500 mg tablet hxyzzqcodqzh-xusbdbwk-srijor (Multivitamin 50 Plus) tablet niacin ER (NIASPAN) [...] Apparently patient had repeat CT scan at [facility] February 11, 2022 and reported stable [...] documented as of this encounter Care Teams Salvage Engineering Technician Relationship Specialty Start Date End Date Meliton Washburn MD PCP - General Family Medicine 04/01/22 documented as of this encounter
--- OUTSIDE RECORDS SUMMARY | 2024-06-06 23:49 | XMS_ITS | Encounter Summary ---
Author Organization [facility] Healthcare Address [address] [place] [address] Care Team Providers Care Process Specialist Name Role Phone Meliton Washburn MD Primary Care Provider [phone] Encounter Details Date Type Department Care Team (Late st Contact Info) Description 12/15/2023 Orders Only [facility] Nephrology at [address] [place] [address] ProviderChrist MD [address] [place] [address] Social History Tobacco Use Types Packs/Day Years Used Date Smoking Tobacco: Former Cigarettes 0.5 50 S tarted: 1975 Smokeless Tobacco: Never [facility] Utilities Answer Date Recorded In the past [...] often do you attend chur ch or worship services? Never 10/24/2023 Do you belong to any clubs o r organizations such as religious groups, unions, fraternal or athletic groups, or [...] on file Legal Sex Male 3:39 PM ENFORCEMENT OFFICER Gender Identity Not on file Sexual Orientation [...] on filedocumented in this encounter Care Teams Process Specialist Relationship Specialty Start Date End Date Meliton Washburn MD PCP - General Family Medicine 04/01/22 documented as of this encounter
--- OUTSIDE RECORDS SUMMARY | 2024-06-06 23:49 | XMS_ITS | Encounter Summary ---
Author Organization [facility] Address [address] [place] [address] Care Team Providers Care Linux Systems Administrator Name Role Phone Meliton Washburn MD Primary Care Provider [phone] Reason for Visit * Reason Comments Fatigue * Auth/Cert (Routine) Specialty Diagnoses / Procedures Referred By Contac t Referred To Contact Diagnoses Hyponatremia Generalized weakness Urinary tract infection associated with catheterization of urinary tract, unspecified indwelling urinary catheter type, initial encounter (HCC) Hematuria, unspecified type Procedures na Referral ID Status Reason Start Date Expiration Date Visits Re quested Visits Authorized [id number] 1 1 Encounter Details Date Type Department Care Team (Latest Contact Info) Description 10/23/2023 5:32 PM CDT - 10/27/2023 2:35 PM CDT Hospital Encounter [facility] [address] [place] [address] Jacqui Charles MD [address] [place] [address] EMERGENCY DEPARTMENT [place], [place] [id number] Jaren Goyal MD [address] [place] [address] [place], [place] [id number] Félix Patiño MD [address] [place] [address] [place] [address] Ingrid Cheek MD [address] [place] [address] [place], [place] [id number] Generalized weakness (Primary Dx); Urinary tract infection associated with catheterization of urinary tract, unspecified indwelling urinary catheter type, initial encounter (HCC); Hyponatremia; Hematuria, unspecified type Discharge Disposition: Discharge to home or self care Social History Tobacco Use Types Packs/Day Years Used Date Smoking Tobacco: Former Cigarettes 0.5 50 S tarted: 1974 Smokeless Tobacco: Never [facility] Utilities Answer Date Recorded In the past 12 months has [employer] electric, gas, oil, or water company threatened [...] often do you attend chur ch or baptist services? Never 10/24/2023 Do you belong to any clubs o r organizations such as congregational groups, unions, fraternal or athletic groups, or [...] place to sleep or slept in a fdc (including now)? No 10/24/2023 Personal Safety Answer Date Recorded Have you ever been in or are you currently in a harmful physical or emotional relationship or is someone making you feel afraid or unsafe? 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 Gender Identity Not on file Sexual Orientation [...] Patient Age - 83 yrs Patient - [id number] [facility] - [id number] Document Creation Date: 10/27/2023 Admitting Provider, MD: Jaren Goyal MD Discharge Provider, MD: Ingrid Cheek MD Primary Care Physician at Discharge: Meliton Washburn MD [phone] Admission Date: 10/23/2023 Discharge Date/time: 10/27/2023 Admission Location: [facility] LOS - LOS: 4 days DETAILS OF HOSPITAL STAY Hospital Problems/Diagnoses Principal Problem: Hyponatremia Active Problems: Acute cystitis without hematuria Generalized weakness Reason for Hospitalization: Hematuria, Hyponatremia constipation Hospital Course: Meliton is a 83-year-old male with past medical history of hypertension, diabetes, BPH, presents [facility] with fatigue and hematuria yet. He has been having on and off hematuria for awhile, hehas a Mariee catheter and at times, catheter clogs. He was recently hospitalized at [facility], catheter was exchanged and he was discharged home afterwards. Since then he has had poor appetite, constipation, he went back to [facility] and he was discharged home with the recommendationof starting salt tablets for his sodium. He comes to [facility] the day after noting return [...] & Recommended Plan for Follow-up: pcp, urologist, upper leather sorter follow up Allergies: Sulfa (sulfonamide antibiotics) Discharge [...] daily Multivitamin 50 Plus tablet Generic drug: dsxwvdbvgrfs-ygctrjkl-gfkblm oral, Daily omeprazole 20 mg capsule Commonly known as: PriLOSEC 20 mg, oral, Daily sertraline 50 mg tablet Commonly known as: ZOLOFT 50 mg, oral, Daily STOP taking these medications aspirin 81 mg chewable tablet clopidogreL 75 mg tablet Commonly known as: PLAVIX niacin ER 500 mg CR capsule Where to Get Your Medications These medications were sent to [facility] (MAIL SERVICE) [facility] - [place], [place] - [address], [facility] [id number] sodium chloride 1 gram tablet Time Spent [...] Center 04/09/2024 10:30 AM Karen Benjamin MD [facility] CAR MRVL Specialty Contact Information for Follow-ups Meliton Washburn MD Specialty: Family Medicine Relationship: PCP - General [address] [place] [address] [address] [place] [address] Next Steps: Follow up in 1 week(s) Dallas Siegel MD Specialty: Urology [address] [place] [address] Next Steps: Follow up Please schedule an appointment with the following provider(s): Meliton Washburn MD [address] [place] [address] [address] [place] [address] Follow up in 1 week(s) Dallas Siegel MD [address] [place] [address] Follow up ANCILLARY INFORMATION Other Procedures & [...] 0.70* -- 0.80 0.80 < > 0.70* [id number]-[id number] mL/min/1.73 m2 >90 -- 88 88 < [...] checked in 1 week, with PCP or upper leather sorter office. Monitor sodium level. Keep total daily [...] this encounter Progress Notes * Eulalio Vernon, REFINERY OPERATOR HELPER - 10/27/2023 9:51 AM CDT Physical Therapy [...] 4-6 steps with rails/device 10/24/23 10/31/23 -- Library Paraprofessional Services Utilized: NO Educated the patient to [...] and use of call light. Good understanding. Library Paraprofessional Services Utilized: NO * Eulalio Vernon PTA [...] 4-6 steps with rails/device 10/24/23 10/31/23 -- Library Paraprofessional Services Utilized: NO Educated the patient to [...] grosshematuria and hyponatremia. #Chronic Mariee -Exchanged in [facility] ER 10/22 due to prior catheter clogged. [...] to specialty portal to page appropriate provider turf sales person. Shameka Melgoza NP 10/26/2023 * Sourav Park [...] no growth, will dc rocephin Lab pending Mareie still has bloody urine, blood on his penis and scrotum Pt deny ID, PCI, stroke, peripheral arterial disease, w hx [...] Estimated Average Glucose 151 mg/dL Thyroid Function [place] Collection Time: 10/24/23 7:46 AM Result Value [...] 650 mg 650 mg oral Q4H PRN Jarne Goyal MD Or acetaminophen (TYLENOL) 32 mg/mL oral liquid 650 mg 650 mg feeding tube Q4H PRN Jaren Goyal MD Or acetaminophen (TYLENOL) suppository 650 mg 650 mg rectal Q4H PRN Jaren Goyal MD cefTRIAXone (ROCEPHIN) 1,000 mg/10 mL in sterile water (premix) 1,000 mg 1,000 mg intravenous Q24H [facility] Jaren Goyal MD 1,000 mg at 10/24/23 [...] patient cath was exchanged on 10/21 at [facility] -UA suggestive for UTI -dc ceftriaxone IV, [...] on his penis and scrotum Pt deny ID, PCI, stroke, peripheral arterial disease, w hx [...] Estimated Average Glucose 151 mg/dL Thyroid Function [place] Collection Time: 10/24/23 7:46 AM Result Value [...] patient cath was exchanged on 10/21 at [facility] -UA suggestive for UTI, urine culture pending [...] Care Note Shona Salvador MCM.Div Pt's is Tenriism and attends [facility], pt sometimes attends with her when there is work to be done. Pt enjoys walking and is looking forward to getting up and walking again. Hopes to discharge tomorrow. Sewing Machine Attachment Tester provided prayer- pt appreciated PCV. 10/24/23 1500 Time Spent Start Time 1500 Patient Spiritual Assessment Spirituality Assessed Yes Tenriism Affiliation Rastafarian Active in Christian No Clinical Encounter Type Visited With Patient Response Type Routine visit Routine Visit Introduction Outcomes and Progress Aligning care with patient's values Achieved Preserve dignity and respect Achieved Demonstrating care and respect Achieved Interventions Interventions Active listening;Prayer * Zach Arellano, OT - 10/24/2023 9:58 AM CDT Occupational Therapy 10/24/23 0947 General Chart Reviewed Yes Session Type Evaluation [...] Equipment-Currently Using None Prior Function Level of [place] Independent with ADLs;Independent functional transfers;Independent with ambulation;Independent [...] but has from previous ankle injury). Impressions: EXPORT MANAGER met with patient at bedside to discuss dc planning. Patient was A&Ox 4, pleasant, and cooperative. Patient from home and anticipate returning home at ms. Previous stays at [facility]. Pt reported he was seen in ED at [place] [address] on Tuesday but displeased with service. Pt [...] for complex higher level of care or chcf planning for care. Meliton Delacruz would benefit from continued therapy services at d/c. OT recs home with family, [facility] OT. Goal: Social work will work with Meliton Delacruz and family for discharge planning needs.Social work assess for possible complex discharge concerns. Provide resources and education to help reduce readmission and improve chcf health. Social Work Plan: No social service [...] More than three times a week Attends Tenriism Services: Never Active Member of Clubs or [...] 10/24/2023 9:42 AM CDT Physical Therapy 10/24/23 0962 General Chart Reviewed Yes Session Type Evaluation PT Received On 10/24/23 Safe Environment Arm band checked;Gait belt utilized for all out of bed mobility;Patient found in supine Subjective Agreeable to Therapy Additional Pertinent History Dx: hyponatremia, cystitis. Patient reports that he has not been doingwell for awhile. He was hospitalized [facility] a week ago for 3 days, was [...] and generalized weakness. He went back to [facility] emergency room yesterday, states he was discharged [...] Equipment-Currently Using None Prior Function Level of [place] Independent with homemaking with ambulation;Independent functional transfers;Independent [...] Estimated Average Glucose 151 mg/dL Thyroid Function [place] Collection Time: 10/24/23 7:46 AM Result Value [...] (premix) 1,000 mg 1,000 mg intravenous Q24H [facility] Jaren Goyal MD 1,000 mg at 10/24/23 [...] patient cath was exchanged on 10/21 at [facility] -UA suggestive for UTI, urine culture pending [...] of Service: 10/23/2023 Primary Care Physician: Meliton Washburn MD [phone] CHIEF COMPLAINT: Patient is a 83 y.o. male with a PMHx significant for hypertension, hyperlipidemia, diabetes, BPH. Presents to the ED with a chief complaint of fatigue, hematuria. HPI: Patient reports that he has not been doing well for awhile. He was hospitalized [facility] aweek ago for 3 days, was discharged [...] and generalized weakness. He went back to [facility] emergency room yesterday, states he was discharged [...] used to dictate and transcribe this document. Fretted Instrument Inspector variances may occur. Despite proofreading, typographical errors [...] with fatigue and hematuria. He was in [facility] a week ago for 3 days and was discharged withreturn back to the ED because his Mariee catheter was clogged. With exchanged and subsequently he presented to the ED at [facility] for the above-mentioned symptoms. He notes that [...] chart when it was discontinued by his financial recruiter. He thinks that he had already finished [...] tablet (5 mg total) by mouth daily rvrydetawbgg-qncfptnh-xysjor (Multivitamin 50 Plus) tablet Take by mouth [...] CREATININE mg/dL -- 0.80 0.90 -- 0.80 [id number]-FRC-[id number] mL/min/1.73 m2 -- 88 85 -- 88 [...] was used to complete this document, therefore, residency program coordinator variances may occur. Sourav Park MD, M.S, [facility] Nephrology and Hypertension Office: [phone] * Rhona, Shamekabranden Pickett NP - 10/24/2023 [...] hematuria, and hyponatremia. He was hospitalized at [facility] about a week ago for 3 days, discharged Tuesday, and had to return to ER due to mariee clogging. He was discharged after foleywas replaced and was draining well. Patient reports presence of indwelling mariee catheter for 1 year and 8 months. Chronic mariee is dueto enlarged prostate and bladder not working. He sees Dr. Siegel at [facility] where he has his mariee replaced monthly. [...] personally reviewed by me. Event Monitor AMBULATORY URBAN GARDENING SPECIALIST REPORT Patient Name: Meliton Delacruz Date of [...] was used to complete this document, therefore, residency program coordinator variances may occur. Ugo Guevara MD, [facility] 08/17/23 Assessment Meliton Delacruz is a 83 [...] to specialty portal to page appropriate provider turf sales person. Shameka Melgoza NP 10/24/2023 documented in this [...] hyponatremia. He is normally cared for at [facility]. He was admitted there last week for a sodium of 124 at [facility] 3 days until it was 130. Family returned him there yesterday his sodium was 124. He was told to go home any foods high in salt. However he is continuing to be fatigued with decreased appetite. Patient has had recurrent urinary tract infections with hematuria and a Mariee is in place. He is followed by urology at [facility]. This morning he had dark blood layering [...] iron) tablet finasteride (PROSCAR) 5 mg tablet zsamwnoaqnkw-mdqidtzy-zashkq (Multivitamin 50 Plus) tablet niacin ER (NIASPAN) [...] (180 lb) SpO2 99% BMI 24.41 kg/m?? [facility] ED Course as of 10/23/232054 Time: 10/23 [...] MD This examination was transcribed using the [employer] voice recognition system without human title supervisor. In an effort to expedite patient care, this report has not been adjusted for typographical, grammatical, and syntax by a trained biomedical manager. Clinical Impression: Generalized weakness Urinary tract infection associated with catheterization of urinary tract, unspecified indwelling urinary catheter type, initial encounter ([facility]) Hyponatremia Hematuria, unspecified type Jacqui Charles MD 10/23/232054 * Alyssa Knight RN - 10/23/2023 7:47 PM CDT Pt requesting something to eat. Gave pudding and jello. Alyssa Knight RN 10/23/231946 * Malinda Forrester RN - 10/23/2023 6:32 PM CDT Ua collected from mariee cath replaced today at [facility], states leg bag new as well Malinda Forrester RN 10/23/231831 * Estevan Guido RN - 10/23/2023 3:27 PM CDT Came to ED with for c/o weakness and low sodium level. Per was seen at [facility] ED this am and Sodium was 124. [...] reach, bed alarm on. * Plan of [facility] - Elena Izquierdo RN - 10/26/2023 5:56 [...] emotional readiness to learn Assess cultural and baptist beliefs that influence knowledge of disease or [...] noted that pt was recently admitted at [facility] for same. Dx hyponatremia. IV abx, IVF Plan Includes: Pt from home with spouse, independent with walker if needed. Pt plans to return homewith spouse and no needs at d/c. Primary Source of Transportation: Does the patient need discharge transport arranged?: No ( will transport) (10/24/23 1404) Health Insurance Coverage: Medicare Prescription Coverage: [facility] Pharmacy: [facility] - [place], [place] - [address] [address] [facility] [address] [id number] - [place], [place] - [address] AT [place] [address]) & [address] [facility] [place] [address] Primary Care Provider: Meliton Washburn MD Prior [...] a week How often do you attend congregational or baptist services?: Never Do you belong to any clubs or organizations such as congregational groups, unions, fraternal or athletic groups, or [...] to be Discharged to: Private residence, (10/24/23 1407) Patient's Identified Problem/Goal Problem: Ensure acute medical [...] * POCT glucose (10/27/2023 12:48 PM CDT) [facility] Glucose, POC 101 70 - 199 mg/dL Comment:Testing performed by : [facility], [address] [place] [address]., [address] Blood 10/27/2023 12:4 8 PM CDT 10/27/2023 12:48 PM CDT us Ingrid Cheek MD LAB POCT ORDERABLES - DEVICE Fin al Result ALFREDO [address] [facility] Department [place] [address] * eGFR (10/27/2023 8:55 AM CDT) [facility] eGFR >90 >=60 mL/min/1. 73 m2 [...] was last reviewed 2021. Testing performed by: [facility], [address] [place] [address]., [id number] Blood 10/27/2023 8:55 AM CDT 10/27/2023 9:00 AM CDT us Ingrid Cheek MD LAB BLOOD ORDERABLES Final Resul t ALFR[facility]O [address] [facility] Department [place] [address] * (ABNORMAL) Renal function panel (10/27/2023 8:55 AM CDT) Sodium 130(L) 135 - 145 mmol/L Comment:Testing performed by : [address] [address] Potassium, pl 4.4 3.3 - 4.9 mmol/L ALFREDO Comment:Testing performed by : [address] [address] Chloride 96(L) 97 - 110 mmol/L ALFREDO Comment:Testing performed by : [address] [address] CO2 23 22 - 32 mmol/L ALFREDO Comment:Testing performed by : [address] [address] Anion gap 11 2 - 15 mmol/L ALFREDO Comment:Testing performed by : [address] [address] BUN 13 6 - 25 mg/dL ALFREDO Comment:Testing performed by : [address] [address] Creatinine 0.70(L) 0.80 - 1.30 mg/dL ALFR[facility]O Comment:Testing performed by : [address] [address] Glucose 129 70 - 199 mg/dL ALFREDO [...] was last revised 2022. Testing performed by: [address] [address] Calcium 8.6 8.5 - 10.3 mg/dL ALFREDO Comment:Testing performed by : [address] [address] Phosphorus, pl 3.6 2.3 - 4.5 mg/dL ALFREDO Comment:Testing performed by : [address] [address] Albumin 3.9 3.5 - 5.0 g/dL ALFR[facility]O Comment:Testing performed by : [address] [address] Blood 10/27/2023 8:55 AM CDT 10/27/2023 9:00 AM CDT Ingrid Cheek MD LAB BLOOD ORDERABLES Final Resul t Performing Organization Address [facility] Co de Phone Number N[address] [place] [address] * POCT glucose (10/27/2023 8:29 AM CDT) Glucose, POC 125 70 - 199 mg/dL Comment:Testing performed by : [address] [address] Blood 10/27/2023 8:29 AM CDT 10/27/2023 8:29 AM CDT Ingrid Cheek MD LAB POCT ORDERABLES - DEVICE Fin al Result Performing Organization Address City/[facility] Co de Phone Number [address] [employer] [place] [address] * Differential, auto (10/27/2023 7:26 AM CDT) Neutrophil abs 5.8 1.5 - 6.5 K/cumm Comment:Testing performed by : [address] [address] Imm gran abs 0.0 0.0 - 0.1 K/cumm CERNER Comment:Testing performed by : [address] [address] Lymphocyte abs 0.9 0.8 - 3.3 K/cumm CERNER Comment:Testing performed by : [address] [address] Monocyte abs 0.5 0.2 - 0.8 K/cumm [facility] Comment:Testing performed by : [address], [place]., [address] Eosinophil abs 0.1 0.0 - 0.5 K/cumm [facility] Comment:Testing performed by : [address] [address] Basophil abs 0.1 0.0 - 0.1 K/cumm [facility] Comment:Testing performed by : [address] [address] Neutrophil pct 79.2 % [facility] Comment: Interpretive Data Percent cell count reference ranges are not reported, since discordance with absolute values may lead to misinterpretation of CBC data. Current Interpretive Data was last revised on 2017. Testing performed by: [address] [address] Imm gran pct 0.4 % [facility] Comment: Interpretive Data Percent cell count reference ranges are not reported, since discordance with absolute values may lead to misinterpretation of CBC data. Current Interpretive Data was last revised on 2017. Testing performed by: [address] [address] Lymphocyte pct 11.7 % C[facility]ER Comment: Interpretive Data Percent cell count reference ranges are not reported, since discordance with absolute values may lead to misinterpretation of CBC data. Current Interpretive Data was last revised on 2017. Testing performed by: [address] [address] Monocyte pct 6.6 % CERNER Comment: Interpretive Data Percent cell count reference ranges are not reported, since discordance with absolute values may lead to misinterpretation of CBC data. Current Interpretive Data was last revised on 2017. Testing performed by: [address] [address] Eosinophil pct 1.4 % ALFREDO Comment: Interpretive Data Percent cell count reference ranges are not reported, since discordance with absolute values may lead to misinterpretation of CBC data. Current Interpretive Data was last revised on 2017. Testing performed by: [address] [address] Basophil pct 0.7 % ALFREDO Comment: Interpretive Data Percent cell count reference ranges are not reported, since discordance with absolute values may lead to misinterpretation of CBC data. Current Interpretive Data was last revised on 2017. Testing performed by: [address] [address] Blood 10/27/2023 7:26 AM CDT 10/27/2023 8:35 AM CDT Ingrid Cheek MD LAB BLOOD ORDERABLES Final Resul t [place] [address] [facility] Department [place] [address] * (ABNORMAL) CBC with auto differential (10/27/2023 7:26 AM CDT) Pathologist [facility] WBC 7.3 3.8 - 9.9 K/cumm Comment:Testing performed by : [address] [address] Hgb 11.4(L) 13.0 - 17.5 g/dL ALFREDO Comment:Testing performed by : [address] [address] Hct 33.7(L) 38.9 - 50.3 % ALFREDO Comment:Testing performed by : [address] [address] Plt 292 150 - 400 K/cumm ALFREDO Comment:Testing performed by : [address] [address] MPV 9.2 9.1 - 12.3 fL ALFREDO PRESLEY Comment:Testing performed by : [address] [address] RBC 3.88(L) 4.30 - 5.80 M/cumm ALFREDO Comment:Testing performed by : [address] [address] MCV 86.9 81.3 - 96.4 fL ALFREDO Comment:Testing performed by : [address] [address] MCH 29.4 27.1 - 33.3 pg ALFREDO Comment:Testing performed by : [address] [address] MCHC 33.8 32.3 - 35.7 g/dL ALFREDO Comment:Testing performed by : [address] [address] RDW CV 12.8 11.1 - 14.9 % ALFREDO Comment:Testing performed by : [address] [address] RDW SD 40.4 35.7 - 48.1 fL ALFR[facility]O Comment:Testing performed by : [address] [address] NRBC abs 0.00 0.00 - 0.01 K/cumm ALFREDO Comment:Testing performed by : [address] [address] Blood 10/27/2023 7:26 AM CDT 10/27/2023 8:35 AM CDT us Ingrid Cheek MD LAB BLOOD ORDERABLES Final Resul t [facility] [address] [facility] Department [place] [address] * POCT glucose (10/26/2023 11:54 PM CDT) [facility] Signature Glucose, POC 137 70 - 199 mg/dL Comment:Testing performed by : [address] [address] Blood 10/26/2023 11:5 4 PM CDT 10/26/2023 11:54 PM CDT Ingrid Cheek MD LAB POCT ORDERABLES - DEVICE Fin al Result Performing Organization Address [facility] Co de Phone Number NIC[address] [place] [address] * POCT glucose (10/26/2023 8:26 PM CDT) Glucose, POC 130 70 - 199 mg/dL Comment:Testing performed by : [address] [address] Blood 10/26/2023 8:26 PM CDT 10/26/2023 8:26 PM CDT Ingrid Cheek MD LAB POCT ORDERABLES - DEVICE Fin al Result Performing Organization Address [facility] de Phone Number [address] [address] * POCT glucose (10/26/2023 5:00 PM CDT) Glucose, POC 118 70 - 199 mg/dL Comment:Testing performed by : [address] [address] Blood 10/26/2023 5:00 PM CDT 10/26/2023 5:00 PM CDT Ingrid Cheek MD LAB POCT ORDERABLES - DEVICE Fin al Result Performing Organization Address [facility] de Phone Number [address] [address] * POCT glucose (10/26/2023 12:35 PM CDT) Glucose, POC 102 70 - 199 mg/dL Comment:Testing performed by : [address] [address] Blood 10/26/2023 12:3 5 PM CDT 10/26/2023 12:35 PM CDT us Ingrid Cheek MD LAB POCT ORDERABLES - DEVICE Fin al Result Performing Organization Address [facility] Co de Phone Number ALFREDO PRESLEY [address] [facility] Department [place] [address] * eGFR (10/26/2023 12:15 PM CDT) eGFR [...] was last reviewed 2021. Testing performed by: [facility], [address] [place] [address], [place]., [address] Blood 10/26/2023 12:1 5 PM CDT 10/26/2023 12:44 PM CDT us Sourav Park MD LAB BLOOD ORDERABLES Final Resu lt Performing Organization Address [facility] Co de Phone Number ALFREDO PRESLEY [address] [facility] Department [place] [address] * (ABNORMAL) Renal function panel (10/26/2023 12:15 PM CDT) Sodium 132(L) 135 - 145 mmol/L Comment:Testing performed by : [address] [address] Potassium, pl 3.9 3.3 - 4.9 mmol/L ALFREDO Comment:Testing performed by : [address], [place]., [address] Chloride 96(L) 97 - 110 mmol/L ALFREDO Comment:Testing performed by : [address] [address] CO2 23 22 - 32 mmol/L ALFREDO Comment:Testing performed by : [address] [address] Anion gap 13 2 - 15 mmol/L ALFREDO Comment:Testing performed by : [address] [address] BUN 12 6 - 25 mg/dL ALFREDO Comment:Testing performed by : [address] [address] Creatinine 0.80 0.80 - 1.30 mg/dL ALFREDO Comment:Testing performed by : [address] [address] Glucose 106 70 - 199 mg/dL ALFREDO [...] was last revised 2022. Testing performed by: [address] [address] Calcium 8.9 8.5 - 10.3 mg/dL ALFREDO PRESLEY Comment:Testing performed by : [facility], [address] [place] [address]., [address] Phosphorus, pl 3.4 2.3 - 4.5 mg/dL ALFREDO PRESLEY Comment:Testing performed by : [facility], [address] [place] [address]., [address] Albumin 4.2 3.5 - 5.0 g/dL ALFREDO Comment:Testing performed by : [facility], [address] [place] [address]., [address] Blood 10/26/2023 12:1 5 PM CDT 10/26/2023 12:44 PM CDT us Sourav Park MD LAB BLOOD ORDERABLES Final Resu lt ALFREDO [address] [facility] Department of Laboratories [place], [place] [id number] * eGFR (10/26/2023 11:49 AM CDT) eGFR [...] was last reviewed 2021. Testing performed by: [address] [address] Blood 10/26/2023 11:4 9 AM CDT 10/26/2023 12:19 PM CDT us Jamshid Kennedy MD LAB BLOOD ORDERABLES Final Re sult [facility] [address] [facility] Department [place] [address] * Differential, auto (10/26/2023 11:49 AM CDT) Neutrophil abs 5.8 1.5 - 6.5 K/cumm Comment:Testing performed by : [address] [address] Imm gran abs 0.0 0.0 - 0.1 K/cumm ALFREDO Comment:Testing performed by : [address] [address] Lymphocyte abs 0.9 0.8 - 3.3 K/cumm ALFREDO Comment:Testing performed by : [address] [address] Monocyte abs 0.4 0.2 - 0.8 K/cumm ALFREDO Comment:Testing performed by : [address] [address] Eosinophil abs 0.0 0.0 - 0.5 K/cumm ALFREDO Comment:Testing performed by : [address] [address] Basophil abs 0.0 0.0 - 0.1 K/cumm ALFREDO Comment:Testing performed by : [address] [address] Neutrophil pct 79.8 % ALFREDO Comment: Interpretive Data Percent cell count reference ranges are not reported, since discordance with absolute values may lead to misinterpretation of CBC data. Current Interpretive Data was last revised on 2017. Testing performed by: [address] [address] Imm gran pct 0.3 % [facility] Comment: Interpretive Data Percent cell count reference ranges are not reported, since discordance with absolute values may lead to misinterpretation of CBC data. Current Interpretive Data was last revised on 2017. Testing performed by: [address] [address] Lymphocyte pct 12.9 % [facility] Comment: Interpretive Data Percent cell count reference ranges are not reported, since discordance with absolute values may lead to misinterpretation of CBC data. Current Interpretive Data was last revised on 2017. Testing performed by: [address] [address] Monocyte pct 6.0 % [facility] Comment: Interpretive Data Percent cell count reference ranges are not reported, since discordance with absolute values may lead to misinterpretation of CBC data. Current Interpretive Data was last revised on 2017. Testing performed by: [address] [address] Eosinophil pct 0.6 % [facility] Comment: Interpretive Data Percent cell count reference ranges are not reported, since discordance with absolute values may lead to misinterpretation of CBC data. Current Interpretive Data was last revised on 2017. Testing performed by: [address] [address] Basophil pct 0.4 % [facility] Comment: Interpretive Data Percent cell count reference ranges are not reported, since discordance with absolute values may lead to misinterpretation of CBC data. Current Interpretive Data was last revised on 2017. Testing performed by: [address] [address] Blood 10/26/2023 11:4 9 AM CDT 10/26/2023 12:20 PM CDT us Ingrid Cheek MD LAB BLOOD ORDERABLES Final Resul t [facility] [address] [facility] Department [place] [address] * (ABNORMAL) CBC with auto differential (10/26/2023 11:49 AM CDT) [facility] WBC 7.2 3.8 - 9.9 K/cumm Comment:Testing performed by : [address] [address] Hgb 12.1(L) 13.0 - 17.5 g/dL ALFREDO Comment:Testing performed by : [address] [address] Hct 34.4(L) 38.9 - 50.3 % ALFREDO Comment:Testing performed by : [address] [address] Plt 310 150 - 400 K/cumm ALFREDO Comment:Testing performed by : [address] [address] MPV 9.1 9.1 - 12.3 fL ALFREDO Comment:Testing performed by : [address], [address] RBC 4.10(L) 4.30 - 5.80 M/cumm ALFREDO Comment:Testing performed by : [address] [address] MCV 83.9 81.3 - 96.4 fL ALFREDO Comment:Testing performed by : [address] [address] MCH 29.5 27.1 - 33.3 pg ALFREDO Comment:Testing performed by : [address] [address] MCHC 35.2 32.3 - 35.7 g/dL ALFREDO Comment:Testing performed by : [address], [address] RDW CV 12.8 11.1 - 14.9 % ALFREDO Comment:Testing performed by : [address] [address] RDW SD 39.0 35.7 - 48.1 fL ALFREDO Comment:Testing performed by : [address] [address] NRBC abs 0.00 0.00 - 0.01 K/cumm ALFREDO Comment:Testing performed by : [address] [address] Blood 10/26/2023 11:4 9 AM CDT 10/26/2023 12:20 PM CDT Ingrid Cheek MD LAB BLOOD ORDERABLES Final Resul t [facility] [address] [facility] Department [place] [address] * (ABNORMAL) Basic metabolic panel (10/26/2023 11:49 AM CDT) Sodium 133(L) 135 - 145 mmol/L Comment:Testing performed by : [address] [address] Potassium, pl 4.2 3.3 - 4.9 mmol/L ALFREDO Comment:Testing performed by : [address] [address] Chloride 97 97 - 110 mmol/L ALFREDO Comment:Testing performed by : [address] [address] CO2 23 22 - 32 mmol/L ALFREDO Comment:Testing performed by : [address] [address] Anion gap 13 2 - 15 mmol/L ALFREDO Comment:Testing performed by : [address] [address] BUN 12 6 - 25 mg/dL ALFREDO Comment:Testing performed by : [address] [address] Creatinine 0.80 0.80 - 1.30 mg/dL ALFREDO Comment:Testing performed by : [address] [address] Glucose 123 70 - 199 mg/dL ALFREDO [...] was last revised 2022. Testing performed by: [facility], [address] [place] [address]., [address] Calcium 8.7 8.5 - 10.3 mg/dL ALFREDO PRESLEY Comment:Testing performed by : [facility], [address] [place] [address]., [address] Blood 10/26/2023 11:4 9 AM CDT 10/26/2023 12:19 PM CDT us Jamshid Kennedy MD LAB BLOOD ORDERABLES Final Re sult ALFREDO [address] [facility] Department of Laboratories [place], [place] [id number] * eGFR (10/26/2023 11:46 AM CDT) eGFR [...] was last reviewed 2021. Testing performed by: [address] [address] Blood 10/26/2023 11:4 6 AM CDT 10/26/2023 12:19 PM CDT us Ingrid Cheek MD LAB BLOOD ORDERABLES Final Resul t ALFREDO [facility] Department [place] [address] * Differential, auto (10/26/2023 11:46 AM CDT) Neutrophil abs 5.7 1.5 - 6.5 K/cumm Comment:Testing performed by : [address] [address] Imm gran abs 0.0 0.0 - 0.1 K/cumm ALFREDO PRESLEY Comment:Testing performed by : [address] [address] Lymphocyte abs 0.9 0.8 - 3.3 K/cumm ALFREDO Comment:Testing performed by : [address] [address] Monocyte abs 0.4 0.2 - 0.8 K/cumm ALFREDO Comment:Testing performed by : [address] [address] Eosinophil abs 0.0 0.0 - 0.5 K/cumm ALFREDO Comment:Testing performed by : [address] [address] Basophil abs 0.0 0.0 - 0.1 K/cumm ALFREDO Comment:Testing performed by : [address] [address] Neutrophil pct 80.3 % ALFREDO PRESLEY Comment: Interpretive Data Percent cell count reference ranges are not reported, since discordance with absolute values may lead to misinterpretation of CBC data. Current Interpretive Data was last revised on 2017. Testing performed by: [address] [address] Imm gran pct 0.3 % [facility] Comment: Interpretive Data Percent cell count reference ranges are not reported, since discordance with absolute values may lead to misinterpretation of CBC data. Current Interpretive Data was last revised on 2017. Testing performed by: [address] [address] Lymphocyte pct 12.2 % [facility] Comment: Interpretive Data Percent cell count reference ranges are not reported, since discordance with absolute values may lead to misinterpretation of CBC data. Current Interpretive Data was last revised on 2017. Testing performed by: [address] [address] Monocyte pct 6.2 % [facility] Comment: Interpretive Data Percent cell count reference ranges are not reported, since discordance with absolute values may lead to misinterpretation of CBC data. Current Interpretive Data was last revised on 2017. Testing performed by: [address] [address] Eosinophil pct 0.4 % [facility] Comment: Interpretive Data Percent cell count reference ranges are not reported, since discordance with absolute values may lead to misinterpretation of CBC data. Current Interpretive Data was last revised on 2017. Testing performed by: [address] [address] Basophil pct 0.6 % [facility] Comment: Interpretive Data Percent cell count reference ranges are not reported, since discordance with absolute values may lead to misinterpretation of CBC data. Current Interpretive Data was last revised on 2017. Testing performed by: [address] [address] Blood 10/26/2023 11:4 6 AM CDT 10/26/2023 12:19 PM CDT Ingrid Cheek MD LAB BLOOD ORDERABLES Final Resul t ALFREDO [address] [facility] Department [place] [address] * (ABNORMAL) Basic metabolic panel (10/26/2023 11:46 AM CDT) Sodium 133(L) 135 - 145 mmol/L Comment:Testing performed by : [address] [address] Potassium, pl 4.3 3.3 - 4.9 mmol/L ALFREDO Comment:Testing performed by : [address], [place]., [address] Chloride 97 97 - 110 mmol/L ALFREDO Comment:Testing performed by : [address] [address] CO2 23 22 - 32 mmol/L ALFREDO Comment:Testing performed by : [address] [address] Anion gap 13 2 - 15 mmol/L ALFREDO Comment:Testing performed by : [address] [address] BUN 12 6 - 25 mg/dL ALFREDO Comment:Testing performed by : [address] [address] Creatinine 0.80 0.80 - 1.30 mg/dL ALFREDO Comment:Testing performed by : [address] [address] Glucose 125 70 - 199 mg/dL ALFREDO [...] was last revised 2022. Testing performed by: [address] [address] Calcium 8.8 8.5 - 10.3 mg/dL ALFREDO Comment:Testing performed by : [address] [address] Blood 10/26/2023 11:4 6 AM CDT 10/26/2023 12:19 PM CDT us Ingrid Cheek MD LAB BLOOD ORDERABLES Final Resul t ALFREDO [facility] Department [place] [address] * (ABNORMAL) CBC with auto differential (10/26/2023 11:46 AM CDT) WBC 7.1 3.8 - 9.9 K/cumm Comment:Testing performed by : [address] [address] Hgb 12.1(L) 13.0 - 17.5 g/dL ALFREDO Comment:Testing performed by : [address] [address] Hct 34.1(L) 38.9 - 50.3 % ALFREDO Comment:Testing performed by : [address] [address] Plt 312 150 - 400 K/cumm ALFREDO Comment:Testing performed by : [address] [address] MPV 9.1 9.1 - 12.3 fL ALFREDO Comment:Testing performed by : [address] [address] RBC 4.07(L) 4.30 - 5.80 M/cumm ALFREDO Comment:Testing performed by : [address] [address] MCV 83.8 81.3 - 96.4 fL ALFREDO PRESLEY Comment:Testing performed by : [address] [address] MCH 29.7 27.1 - 33.3 pg ALFREDO PRESLEY Comment:Testing performed by : [address] [address] MCHC 35.5 32.3 - 35.7 g/dL ALFREDO Comment:Testing performed by : [address] [address] RDW CV 12.9 11.1 - 14.9 % ALFREDO PRESLEY Comment:Testing performed by : [address] [address] RDW SD 39.3 35.7 - 48.1 fL ALFREDO Comment:Testing performed by : [address] [address] NRBC abs 0.00 0.00 - 0.01 K/cumm ALFREDO Comment:Testing performed by : [address] [address] Blood 10/26/2023 11:4 6 AM CDT 10/26/2023 12:19 PM CDT us Ingrid Cheek MD LAB BLOOD ORDERABLES Final Resul t Performing Organization Address [facility] Co de Phone Number [address] [place] [address] * POCT glucose (10/26/2023 7:38 AM CDT) Glucose, POC 121 70 - 199 mg/dL Comment:Testing performed by : [address] [address] Blood 10/26/2023 7:38 AM CDT 10/26/2023 7:38 AM CDT Ingrid Cheek MD LAB POCT ORDERABLES - DEVICE Fin al Result Performing Organization Address City/[facility] Co de Phone Number [address] [place] [address] * POCT glucose (10/25/2023 8:22 PM CDT) Glucose, POC 121 70 - 199 mg/dL Comment:Testing performed by : [address] [address] Glucose comment 1 Use This Result ALFREDO PRESLEY Comment:Testing performed by : [facility], [address] [place] [address]., [address] Glucose comment 2 RN/MD Notified ALFREDO Comment:Testing performed by : [address] [address] Blood 10/25/2023 8:22 PM CDT 10/25/2023 8:22 PM CDT Ingrid Cheek MD LAB POCT ORDERABLES - DEVICE Fin al Result Performing Organization Address City/[facility] Co de Phone Number [address] [place] [address] * POCT glucose (10/25/2023 5:05 PM CDT) Glucose, POC 115 70 - 199 mg/dL Comment:Testing performed by : [address] [address] Blood 10/25/2023 5:05 PM CDT 10/25/2023 5:05 PM CDT Ingrid Cheek MD LAB POCT ORDERABLES - DEVICE Fin al Result Performing Organization Address [facility] Co de Phone Number [address] [place] [address] * POCT glucose (10/25/2023 11:55 AM CDT) Glucose, POC 113 70 - 199 mg/dL Comment:Testing performed by : [address] [address] Blood 10/25/2023 11:5 5 AM CDT 10/25/2023 11:[address] [facility] Ingrid Cheek MD LAB POCT ORDERABLES - DEVICE Fin al Result Performing Organization Address City/[facility]/ZIP Co de Phone Number [address] [place] [address] * eGFR (10/25/2023 11:38 AM CDT) eGFR [...] was last reviewed 2021. Testing performed by: [facility], [address] [place] [address]., [address] Blood 10/25/2023 11:3 8 AM CDT 10/25/2023 12:47 PM CDT us Sourav Park MD LAB BLOOD ORDERABLES Final Resu lt [facility] [address] [facility] Department [place] [address] * Differential, auto (10/25/2023 11:38 AM CDT) Pathologist [facility] Neutrophil abs 5.0 1.5 - 6.5 K/cumm Comment:Testing performed by : [address] [address] Imm gran abs 0.0 0.0 - 0.1 K/cumm [facility] Comment:Testing performed by : [address] [address] Lymphocyte abs 0.8 0.8 - 3.3 K/cumm CERNER Comment:Testing performed by : [address] [address] Monocyte abs 0.5 0.2 - 0.8 K/cumm [facility] Comment:Testing performed by : [address] [address] Eosinophil abs 0.1 0.0 - 0.5 K/cumm [facility] Comment:Testing performed by : [address] [address] Basophil abs 0.0 0.0 - 0.1 K/cumm [facility] Comment:Testing performed by : [address] [address] Neutrophil pct 79.3 % [facility] Comment: Interpretive Data Percent cell count reference ranges are not reported, since discordance with absolute values may lead to misinterpretation of CBC data. Current Interpretive Data was last revised on 2017. Testing performed by: [address] [address] Imm gran pct 0.2 % [facility] Comment: Interpretive Data Percent cell count reference ranges are not reported, since discordance with absolute values may lead to misinterpretation of CBC data. Current Interpretive Data was last revised on 2017. Testing performed by: [address] [address] Lymphocyte pct 11.9 % CERNER Comment: Interpretive Data Percent cell count reference ranges are not reported, since discordance with absolute values may lead to misinterpretation of CBC data. Current Interpretive Data was last revised on 2017. Testing performed by: [address] [address] Monocyte pct 7.2 % C[facility]ER Comment: Interpretive Data Percent cell count reference ranges are not reported, since discordance with absolute values may lead to misinterpretation of CBC data. Current Interpretive Data was last revised on 2017. Testing performed by: [address] [address] Eosinophil pct 0.9 % ALFREDO Comment: Interpretive Data Percent cell count reference ranges are not reported, since discordance with absolute values may lead to misinterpretation of CBC data. Current Interpretive Data was last revised on 2017. Testing performed by: [address] [address] Basophil pct 0.5 % ALFREDO Comment: Interpretive Data Percent cell count reference ranges are not reported, since discordance with absolute values may lead to misinterpretation of CBC data. Current Interpretive Data was last revised on 2017. Testing performed by: [address] [address] Blood 10/25/2023 11:3 8 AM CDT 10/25/2023 12:47 PM CDT us Ingrid Cheek MD LAB BLOOD ORDERABLES Final Resul t [place] [address] [facility] Department of Laboratories [place], [place] [id number] * (ABNORMAL) CBC with auto differential (10/25/2023 11:38 AM CDT) WBC 6.4 3.8 - 9.9 K/cumm Comment:Testing performed by : [address] [address] Hgb 11.0(L) 13.0 - 17.5 g/dL ALFREDO PRESLEY Comment:Testing performed by : [address] [address] Hct 30.8(L) 38.9 - 50.3 % ALFREDO Comment:Testing performed by : [address] [address] Plt 282 150 - 400 K/cumm ALFREDO Comment:Testing performed by : [address] [address] MPV 9.1 9.1 - 12.3 fL ALFREDO PRESLEY Comment:Testing performed by : [address] [address] RBC 3.68(L) 4.30 - 5.80 M/cumm ALFREDO PRESLEY Comment:Testing performed by : [address] [address] MCV 83.7 81.3 - 96.4 fL ALFREDO Comment:Testing performed by : [address] [address] MCH 29.9 27.1 - 33.3 pg ALFREDO Comment:Testing performed by : [address] [address] MCHC 35.7 32.3 - 35.7 g/dL ALFREDO Comment:Testing performed by : [address] [address] RDW CV 12.8 11.1 - 14.9 % ALFREDO Comment:Testing performed by : [address] [address] RDW SD 39.0 35.7 - 48.1 fL ALFREDO Comment:Testing performed by : [address] [address] NRBC abs 0.00 0.00 - 0.01 K/cumm ALFREDO Comment:Testing performed by : [address] [address] Blood 10/25/2023 11:3 8 AM CDT 10/25/2023 12:47 PM CDT us Ingrid Cheek MD LAB BLOOD ORDERABLES Final [facility]ul t [facility] [facility] Department [place] [address] * (ABNORMAL) Renal function panel (10/25/2023 11:38 AM CDT) Pathologist [facility] Sodium 125(L) 135 - 145 mmol/L Comment:Testing performed by : [address] [address] Potassium, pl 4.5 3.3 - 4.9 mmol/L ALFREDO Comment:Testing performed by : [address] [address] Chloride 94(L) 97 - 110 mmol/L ALFREDO Comment:Testing performed by : [address], [place]., [address] CO2 23 22 - 32 mmol/L ALFREDO Comment:Testing performed by : [address] [address] Anion gap 8 2 - 15 mmol/L [facility] Comment:Testing performed by : [address] [address] BUN 11 6 - 25 mg/dL [facility] Comment:Testing performed by : [address] [address] Creatinine 0.70(L) 0.80 - 1.30 mg/dL [facility] Comment:Testing performed by : [address] [address] Glucose 118 70 - 199 mg/dL [facility] Comment: Interpretive Data Fasting glucose [...] was last revised 2022. Testing performed by: [address] [address] Calcium 8.2(L) 8.5 - 10.3 mg/dL [facility] Comment:Testing performed by : [address] [address] Phosphorus, pl 3.1 2.3 - 4.5 mg/dL ALFREDO Comment:Testing performed by : [address] [address] Albumin 3.6 3.5 - 5.0 g/dL [facility] Comment:Testing performed by : [address] [address] Blood 10/25/2023 11:3 8 AM CDT 10/25/2023 12:47 PM CDT Sourav Park MD LAB BLOOD ORDERABLES Final Resu lt Performing Organization Address City/[facility]/ZIP Co de Phone Number [address] [place] [address] * POCT glucose (10/25/2023 9:20 AM CDT) Glucose, POC 110 70 - 199 mg/dL Comment:Testing performed by : [address] [address] Blood 10/25/2023 9:20 AM CDT 10/25/2023 9:20 AM CDT us Ingrid Cheek MD LAB POCT ORDERABLES - DEVICE Fin al Result Performing Organization Address [facility] Co de Phone Number [address] [address] * POCT glucose (10/24/2023 8:23 PM CDT) Glucose, POC 188 70 - 199 mg/dL Comment:Testing performed by : [address] [address] Blood 10/24/2023 8:23 PM CDT 10/24/2023 8:23 PM CDT Félix Patiño MD LAB POCT ORDERABLES - DEVICE Fin al Result Performing Organization Address City/[facility] Co de Phone Number [address] [address] * POCT glucose (10/24/2023 5:07 PM CDT) Glucose, POC 112 70 - 199 mg/dL Comment:Testing performed by : [facility], [address] [place] [address]., [address] Blood 10/24/2023 5:07 PM CDT 10/24/2023 5:07 PM CDT Félix Patiño MD LAB POCT ORDERABLES - DEVICE Fin al Result Performing Organization Address City/[facility]/ZIP Co de Phone Number [place] [id number] [facility] Department [place] [address] * ECG 12 lead (10/24/2023 2:46 PM CDT) [facility] Ventricular Rate EKG/Min 63 BPM [facility] Atrial Rate 63 BPM [facility] NE-Interval (MSEC) 154 ms [facility] QRS-Interval (MSEC) 90 ms [facility] QT-Interval (MSEC) 440 ms [facility] QTc 450 ms [facility] P [place] 40 degrees [facility] R [place] 1 degrees [facility] T [place] 63 degrees [facility] Diagnosis Normal sinus rhythm Nonspecific ST and T wave abnormality Abnormal ECG When compared with ECG of 23-OCT-2023 15:38, Premature atrial complexes are no longer Present T wave inversion no longer evident in Inferior leads T wave inversion no longer evident in Lateral leads Confirmed by DIVINA DURON M.D. ([id number]) on 10/31/2023 11:49:48 AM [facility] 10/24/2023 2:46 PM CDT 10/31/2023 11:49 AM CDT us Jaren Goyal MD ECG ORDERABLES Final Result Performing Organization Address City/[facility]/ZIP Co de Phone Number [facility] * (ABNORMAL) Osmolality, blood (10/24/2023 12:26 PM CDT) [facility] Osmo 264(L) 275 - 295 mOsm/kg Blood 10/24/2023 12:2 6 PM CDT 10/24/2023 2:34 PM CDT Narrative ALFREDO - 10/24/2023 2:59 PM CDT Add to morning labs from today Félix Patiño MD LAB BLOOD ORDERABLES Final Resul t Performing Organization Address [facility] Co de Phone Number ALFREDO [address] [facility] [place] [place] [address] * POCT glucose (10/24/2023 11:28 AM CDT) Pathologist [facility] Glucose, POC 136 70 - 199 mg/dL Comment:Testing performed by : [address] [address] Glucose comment 1 Use This Result ALFREDO Comment:Testing performed by : [address] [address] Blood 10/24/2023 11:2 8 AM CDT 10/24/2023 11:28 AM CDT Félix Patiño MD LAB POCT ORDERABLES - DEVICE Fin al Result Performing Organization Address [facility] Co de Phone Number ALFREDO [facility] [place] [address] * eGFR (10/24/2023 7:46 AM CDT) [facility] eGFR 88 >=60 mL/min/1. 73 m2 [...] was last reviewed 2021. Testing performed by: [address] [address] Blood 10/24/2023 7:46 AM CDT 10/24/2023 9:33 AM CDT Jaren Goyal MD LAB BLOOD ORDERABLES Final Result Performing Organization Address City/[facility]/ZIP Co de Phone Number [facility] [address] [facility] [place] [address] * Thyroid Function [place] (10/24/2023 7:46 AM CDT) TSH 1.81 0.30 - 4.20 mcIUnit/mL Comment:Testing performed by : [address] [address] Blood 10/24/2023 7:46 AM CDT 10/24/2023 9:33 AM CDT Jaren Goyal MD LAB BLOOD ORDERABLES Final Result Performing Organization Address City/[facility]/ZIP Co de Phone Number [address] [address] * (ABNORMAL) Hemoglobin A1c (10/24/2023 7:46 AM CDT) Hgb A1C 6.9(H) 4.0 - 5.6 % Comment:Testing performed by : [address] [address] Estimated Average Glucose 151 mg/dL ALFREDO Comment: The ADA recommends reporting an estimated Average Glucose (eAG) with all Hemoglobin A1c results using the equation derived from a study of 507 normal and diabetic adults. ??Minority populations were underrepresented and children were not included. ?? (Diabetes Care 31:4175-2554, 2008). ??The eAG is not equivalent to a fasting glucose. Testing performed by: [facility], [address] [place] [address]., [address] Blood 10/24/2023 7:46 AM CDT 10/24/2023 9:33 AM CDT us Jaren Goyal MD LAB BLOOD ORDERABLES Final Result ALFREDO [address] [facility] Department [place] [address] * Lipid panel (10/24/2023 7:46 [...] last revised on 2018. Testing performed by: [address] [address] Triglycerides 79 <=149 mg/dL ALFREDO PRESLEY Comment: [...] last revised on 2018. Testing performed by: [address] [address] HDL 45 >=40 mg/dL [facility] Comment: Interpretive Data Ages < or [...] last revised on 2018. Testing performed by: [address] [address] LDL, calculated 40 <=129 mg/dL [facility] Comment: Interpretive Data Ages < [...] last revised on 2018. Testing performed by: [address] [address] Non-HDL Cholesterol 56 mg/dL ALFREDO PRESLEY Comment: [...] last revised on 2018. Testing performed by: [address] [address] Chol/HDL ratio 2 ALFREDO Comment:Testing performed by : [address] [address] Blood 10/24/2023 7:46 AM CDT 10/24/2023 9:33 AM CDT us Jaren Goyal MD LAB BLOOD ORDERABLES Final Result [facility] [address] [facility] Department [place] [address] * (ABNORMAL) CBC without differential (10/24/2023 7:46 AM CDT) WBC 6.7 3.8 - 9.9 K/cumm Comment:Testing performed by : [address] [address] Hgb 11.6(L) 13.0 - 17.5 g/dL ALFREDO Comment:Testing performed by : [address], [address] Hct 33.8(L) 38.9 - 50.3 % ALFREDO Comment:Testing performed by : [address] [address] Plt 310 150 - 400 K/cumm ALFREDO Comment:Testing performed by : [address], [address] MPV 9.3 9.1 - 12.3 fL ALFREDO Comment:Testing performed by : [address], [address] RBC 3.96(L) 4.30 - 5.80 M/cumm ALFREDO Comment:Testing performed by : [address], [address] MCV 85.4 81.3 - 96.4 fL ALFREDO Comment:Testing performed by : [address], [address] MCH 29.3 27.1 - 33.3 pg ALFREDO Comment:Testing performed by : [address], [address] MCHC 34.3 32.3 - 35.7 g/dL ALFREDO Comment:Testing performed by : [address], [address] RDW CV 12.9 11.1 - 14.9 % ALFREDO Comment:Testing performed by : [address], [address] RDW SD 39.8 35.7 - 48.1 fL ALFREDO Comment:Testing performed by : [address], [address] NRBC abs 0.00 0.00 - 0.01 K/cumm ALFREDO Comment:Testing performed by : [address], [address] Blood 10/24/2023 7:46 AM CDT 10/24/2023 9:33 AM CDT us Jaren Goyal MD LAB BLOOD ORDERABLES Final Result ALFREDO [address] [facility] Department [place] [address] * (ABNORMAL) Comprehensive metabolic panel (10/24/2023 7:46 AM CDT) Sodium 127(L) 135 - 145 mmol/L Comment:Testing performed by : [address] [address] Potassium, pl 4.6 3.3 - 4.9 mmol/L ALFREDO Comment:Testing performed by : [address] [address] Chloride 96(L) 97 - 110 mmol/L ALFREDO Comment:Testing performed by : [address] [address] CO2 21(L) 22 - 32 mmol/L ALFREDO Comment:Testing performed by : [address] [address] Anion gap 10 2 - 15 mmol/L ALFREDO Comment:Testing performed by : [address] [address] BUN 8 6 - 25 mg/dL ALFREDO Comment:Testing performed by : [address] [address] Creatinine 0.80 0.80 - 1.30 mg/dL ALFREDO Comment:Testing performed by : [address] [address] Glucose 116 70 - 199 mg/dL ALFREDO [...] was last revised 2022. Testing performed by: [address] [address] Calcium 8.4(L) 8.5 - 10.3 mg/dL ALFREDO Comment:Testing performed by : [address] [address] Bilirubin, total 0.5 0.1 - 1.2 mg/dL ALFREDO Comment:Testing performed by : [address] [address] Protein, pl 5.9(L) 6.5 - 8.5 g/dL AFLREDO Comment:Testing performed by : [address] [address] Albumin 3.8 3.5 - 5.0 g/dL ALFREDO Comment:Testing performed by : [address] [address] Alk phos 99 40 - 130 Units/L ALFREDO Comment:Testing performed by : [address] [address] ALT 14 7 - 55 Units/L ALFREDO Comment:Testing performed by : [address] [address] AST 16 10 - 50 Units/L ALFREDO Comment:Testing performed by : [address] [address] Blood 10/24/2023 7:46 AM CDT 10/24/2023 9:33 AM CDT us Jaren Goyal MD LAB BLOOD ORDERABLES Final Result ALFREDO [address] [facility] Department [place] [address] * eGFR (10/23/2023 11:39 PM CDT) [facility] Signature eGFR 85 >=60 mL/min/1. 73 [...] was last reviewed 2021. Testing performed by: [facility], [address] [place] [address]., [address] Blood 10/23/2023 11:3 9 PM CDT 10/23/2023 11:47 PM CDT us Jaren Goyal MD LAB BLOOD ORDERABLES Final Result Performing Organization Address City/State/[facility] Co sd Phone Number [facility] [address] [facility] Department [place] [address] * Magnesium (10/23/2023 11:39 PM CDT) [facility] Signature Magnesium 1.7 1.4 - 2.5 mg/dL Comment:Testing performed by : [address] [address] Blood 10/23/2023 11:3 9 PM CDT 10/23/2023 11:47 PM CDT us Jaren Goyal MD LAB BLOOD ORDERABLES Final Result ALFREDO [address] [facility] Department [place] [address] * (ABNORMAL) Basic metabolic panel (10/23/2023 11:39 PM CDT) Sodium 129(L) 135 - 145 mmol/L Comment:Testing performed by : [address] [address] Potassium, pl 4.1 3.3 - 4.9 mmol/L ALFREDO Comment:Testing performed by : [address] [address] Chloride 97 97 - 110 mmol/L ALFREDO Comment:Testing performed by : [address] [address] CO2 22 22 - 32 mmol/L ALFREDO Comment:Testing performed by : [address] [address] Anion gap 10 2 - 15 mmol/L ALFREDO Comment:Testing performed by : [address] [address] BUN 9 6 - 25 mg/dL ALFREDO Comment:Testing performed by : [address] [address] Creatinine 0.90 0.80 - 1.30 mg/dL ALFREDO Comment:Testing performed by : [address] [address] Glucose 115 70 - 199 mg/dL [facility] Comment: Interpretive Data Fasting glucose >/= 126 [...] was last revised 2022. Testing performed by: [address] [address] Calcium 8.2(L) 8.5 - 10.3 mg/dL [facility] Comment:Testing performed by : [facility], [address] [place] [address]., [address] Blood 10/23/2023 11:3 9 PM CDT 10/23/2023 11:47 PM CDT Jaren Goyal MD LAB BLOOD ORDERABLES Final Result Performing Organization Address [facility] Co de Phone Number [address] [address] * POCT glucose (10/23/2023 10:24 PM CDT) [facility] Glucose, POC 127 70 - 199 mg/dL Comment:Testing performed by : [facility], [address] [place] [address]., [address] Blood 10/23/2023 10:2 4 PM CDT 10/23/2023 10:24 PM CDT Jaren Goyal MD LAB POCT ORDERABLES - DEVICE Final Result Performing Organization Address [facility] Co de Phone Number [address] [address] * (ABNORMAL) Osmolality, urine (10/23/2023 9:06 PM CDT) [facility] Osmo, ur 136(L) 300 - 800 mOsm/kg Urine 10/23/2023 9:06 PM CDT 10/23/2023 10:18 PM CDT Jacqui Charles MD LAB URINE ORDERABLES Adeline l Result Performing Organization Address [facility] Co de Phone Number [address] [address] * Chloride, urine, random (10/23/2023 9:06 PM CDT) Chloride, ur 25 mmol/L Comment: Interpretive Data No reference range established. Current interpretive data was last revised 2018. Urine 10/23/2023 9:06 PM CDT 10/23/2023 10:18 PM CDT Jacqui Charles MD LAB URINE ORDERABLES Adeline l Result Performing Organization Address [facility]/ZIP Co de Phone Number [address] [place] [address] * Sodium, urine, random (10/23/2023 9:06 PM CDT) Sodium, ur 40 mmol/L Comment: Interpretive Data No reference range established. Current interpretive data was last revised 2018. Urine 10/23/2023 9:06 PM CDT 10/23/2023 10:18 PM CDT Jacqui Charles MD LAB URINE ORDERABLES Adeline l Result Performing Organization Address [facility] Co de Phone Number [address] [place] [address] * Urine culture Urine (10/23/2023 6:11 PM CDT) Report Final Report: No growth Comment:Testing performed by : [facility], [address] [place]., [address] Urine 10/23/2023 6:11 PM CDT 10/23/2023 10:32 PM CDT Narrative ALFREDO - 10/25/2023 7:26 AM CDT Urine culture reflexed based upon urinalysis results. Testing performed by [facility] Microbiology Laboratory ([phone]) Briana CASTRO LAB MICROBIOLOGY - GENERAL NEELAM AVERY Final Result Performing Organization Address [facility]/ZIP Co de Phone Number [address] [place] [address] * (ABNORMAL) Urinalysis, microscopic only (10/23/2023 6:11 PM CDT) WBC, ur 21-50(A) 0 - 5 /HPF Comment:Testing performed by : [address] [address] RBC, ur >50(A) 0 - 2 /HPF ALFREDO PRESLEY Comment:Testing performed by : [address] [address] Mucous, ur Present(A) ALFREDO PRESLEY Comment:Testing performed by : [address] [address] Culture Reflex Comment Reflex to urine culture will be performed. ALFREDO Comment:Testing performed by : [address] [address] Urine 10/23/2023 6:11 PM CDT 10/23/2023 6:19 PM CDT us Briana CASTRO LAB URINE ORDERABLES Final Resu lt ALFREDO PRESLEY [address] [facility] [place] [address] * (ABNORMAL) Urinalysis reflex to microscopic and culture Urine (10/23/2023 6:11 PM CDT) Color, ur Madai Yellow Comment:Testing performed by : [address] [address] Clarity, ur Cloudy(A) Clear ALFREDO Comment:Testing performed by : [address] [address] Specific gravity, ur 1.016 1.003 - 1.030 ALFREDO Comment:Testing performed by : [address] [address] pH, urine 8.0 ALFREDO Comment: Interpretive Data ? Urine pH is affected by diet, medications, systemic acid-base disturbances, and renal tubular function. ??pH may affect urinary stone formation. ??For example, urine pH below 6.0 may help reduce the tendency for calcium phosphate stones and pH greater than 6.0 may reduce the tendency for uric acid stone formation. Source: [facility] [place] Current Interpretive Data was last revised on 2017 Testing performed by: [facility], [address] [place] [address]., [address] Protein, ur ql 1+(A) Negative ALFREDO Comment:Testing performed by : [address] [address] Glucose, ur ql Negative Negative ALFREDO Comment:Testing performed by : [address], [place]., [address] Ketones, ur 2+(A) Negative ALFREDO Comment:Testing performed by : [address] [address] Bilirubin, ur Negative Negative ALFREDO Comment:Testing performed by : [address] [address] Blood, ur 3+(A) Negative ALFREDO Comment:Testing performed by : [address] [address] Urobilinogen, ur 2.0(A) <2.0 mg/dL ALFREDO Comment:Testing performed by : [address] [address] Nitrite, ur Negative Negative ALFREDO Comment:Testing performed by : [address] [address] Leukocyte esterase, ur 2+(A) Negative ALFREDO Comment:Testing performed by : [address] [address] UA reflex comment Reflex to microscopic UA will be performed. ALFREDO Comment:Testing performed by : [address] [address] Urine 10/23/2023 6:11 PM CDT 10/23/2023 6:19 PM CDT us Briana CASTRO LAB MICROBIOLOGY - GENERAL NEELAM AVERY Final Result ALFREDO PRESLEY [address] [facility] Department [place] [address] * eGFR (10/23/2023 3:47 PM CDT) [facility] eGFR 88 >=60 mL/min/1. 73 m2 [...] was last reviewed 2021. Testing performed by: [facility], [address] [place] [address]., [address] Blood 10/23/2023 3:47 PM CDT 10/23/2023 3:52 PM CDT us Briana CASTRO LAB BLOOD ORDERABLES Final Resu lt ALFREDO [address] [facility] Department [place] [address] * (ABNORMAL) Differential, auto (10/23/2023 3:47 PM CDT) [facility] Neutrophil abs 6.4 1.5 - 6.5 K/cumm Comment:Testing performed by : [facility], [address] [place] [address], [place]., [address] Imm gran abs 0.0 0.0 - 0.1 K/cumm [facility] Comment:Testing performed by : [facility], [address] [place] [address], [place]., [address] Lymphocyte abs 0.7(L) 0.8 - 3.3 K/cumm [facility] Comment:Testing performed by : [address], [place]., [address] Monocyte abs 0.4 0.2 - 0.8 K/cumm [facility] Comment:Testing performed by : [address], [place]., [address] Eosinophil abs 0.0 0.0 - 0.5 K/cumm [facility] Comment:Testing performed by : [address] [address] Basophil abs 0.0 0.0 - 0.1 K/cumm [facility] Comment:Testing performed by : [address] [address] Neutrophil pct 83.8 % [facility] Comment: Interpretive Data Percent cell count reference ranges are not reported, since discordance with absolute values may lead to misinterpretation of CBC data. Current Interpretive Data was last revised on 2017. Testing performed by: [address] [address] Imm gran pct 0.4 % [facility] Comment: Interpretive Data Percent cell count reference ranges are not reported, since discordance with absolute values may lead to misinterpretation of CBC data. Current Interpretive Data was last revised on 2017. Testing performed by: [address] [address] Lymphocyte pct 9.2 % CERNER Comment: Interpretive Data Percent cell count reference ranges are not reported, since discordance with absolute values may lead to misinterpretation of CBC data. Current Interpretive Data was last revised on 2017. Testing performed by: [address] [address] Monocyte pct 5.8 % CERNER Comment: Interpretive Data Percent cell count reference ranges are not reported, since discordance with absolute values may lead to misinterpretation of CBC data. Current Interpretive Data was last revised on 2017. Testing performed by: [address] [address] Eosinophil pct 0.3 % ALFREDO Comment: Interpretive Data Percent cell count reference ranges are not reported, since discordance with absolute values may lead to misinterpretation of CBC data. Current Interpretive Data was last revised on 2017. Testing performed by: [address] [address] Basophil pct 0.5 % ALFREDO Comment: Interpretive Data Percent cell count reference ranges are not reported, since discordance with absolute values may lead to misinterpretation of CBC data. Current Interpretive Data was last revised on 2017. Testing performed by: [address] [address] Blood 10/23/2023 3:47 PM CDT 10/23/2023 3:52 PM CDT us Briana CASTRO LAB BLOOD ORDERABLES Final Resu lt ALFREDO [address] [facility] Department [place] [address] * (ABNORMAL) Comprehensive metabolic panel (10/23/2023 3:47 PM CDT) Sodium 122(L) 135 - 145 mmol/L Comment:Testing performed by : [address] [address] Potassium, pl 4.4 3.3 - 4.9 mmol/L ALFREDO Comment:Testing performed by : [address] [address] Chloride 88(L) 97 - 110 mmol/L ALFREDO Comment:Testing performed by : [address] [address] CO2 19(L) 22 - 32 mmol/L ALFREDO Comment:Testing performed by : [address] [address] Anion gap 15 2 - 15 mmol/L ALFREDO Comment:Testing performed by : [address] [address] BUN 11 6 - 25 mg/dL ALFREDO Comment:Testing performed by : [address] [address] Creatinine 0.80 0.80 - 1.30 mg/dL ALFREDO Comment:Testing performed by : [address] [address] Glucose 120 70 - 199 mg/dL [facility] Comment: Interpretive Data Fasting glucose [...] was last revised 2022. Testing performed by: [address] [address] Calcium 9.0 8.5 - 10.3 mg/dL ALFREDO Comment:Testing performed by : [address] [address] Bilirubin, total 0.4 0.1 - 1.2 mg/dL ALFREDO Comment:Testing performed by : [address] [address] Protein, pl 6.8 6.5 - 8.5 g/dL ALFREDO Comment:Testing performed by : [address] [address] Albumin 4.3 3.5 - 5.0 g/dL ALFREDO Comment:Testing performed by : [address] [address] Alk phos 112 40 - 130 Units/L ALFREDO Comment:Testing performed by : [address] [address] ALT 17 7 - 55 Units/L ALFREDO PRESLEY Comment:Testing performed by : [address] [address] AST 20 10 - 50 Units/L ALFREDO PRESLEY Comment:Testing performed by : [address] [address] Blood 10/23/2023 3:47 PM CDT 10/23/2023 3:52 PM CDT Briana CASTRO LAB BLOOD ORDERABLES Final Resu lt ALFREDO [address] [facility] Department [place] [address] * (ABNORMAL) CBC with auto differential (10/23/2023 3:47 PM CDT) WBC 7.7 3.8 - 9.9 K/cumm Comment:Testing performed by : [address] [address] Hgb 12.5(L) 13.0 - 17.5 g/dL ALFREDO PRESLEY Comment:Testing performed by : [address] [address] Hct 34.9(L) 38.9 - 50.3 % ALFREDO PRESLEY Comment:Testing performed by : [address] [address] Plt 327 150 - 400 K/cumm ALFREDO PRESLEY Comment:Testing performed by : [address] [address] MPV 9.0(L) 9.1 - 12.3 fL ALFREDO PRESLEY Comment:Testing performed by : [address] [address] RBC 4.25(L) 4.30 - 5.80 M/cumm ALFREDO PRESLEY Comment:Testing performed by : [address] [address] MCV 82.1 81.3 - 96.4 fL ALFREDO PRESLEY Comment:Testing performed by : [address] [address] MCH 29.4 27.1 - 33.3 pg ALFREDO PRESLEY Comment:Testing performed by : [facility], [address] [place] [address]., [address] MCHC 35.8(H) 32.3 - 35.7 g/dL ALFREDO PRESLEY Comment:Testing performed by : [address] [address] RDW CV 12.6 11.1 - 14.9 % ALFREDO PRESLEY Comment:Testing performed by : [address] [address] RDW SD 37.8 35.7 - 48.1 fL ALFREDO PRESLEY Comment:Testing performed by : [address] [address] NRBC abs 0.00 0.00 - 0.01 K/cumm ALFREDO PRESLEY Comment:Testing performed by : [address] [address] Blood 10/23/2023 3:47 PM CDT 10/23/2023 3:52 PM CDT us Briana CASTRO LAB BLOOD ORDERABLES Final Resu lt ALFREDO [address] [facility] Department [place] [address] * ECG 12 lead (10/23/2023 3:38 PM CDT) Ventricular Rate EKG/Min 67 BPM [facility] Atrial Rate 67 BPM [facility] NE-Interval (MSEC) 112 ms [facility] QRS-Interval (MSEC) 88 ms [facility] QT-Interval (MSEC) 418 ms [facility] QTc 441 ms [facility] P [place] 37 degrees [facility] R [place] -22 degrees [facility] T [place] 203 degrees [facility] Diagnosis Sinus rhythm with Premature atrial complexes Left ventricular hypertrophy with repolarization abnormality Abnormal ECG No previous ECGs available Confirmed by ELVIS MARSH M.D. ([id number]) on 10/26/2023 5:51:51 PM [facility] 10/23/2023 3:38 PM CDT 10/26/2023 5:51 PM CDT us Briana CASTRO ECG ORDERABLES Final Result [facility] documented in this encounter Visit Diagnoses Diagnosis Hyponatremia- Primary Hyposmolality and/or hyponatremia Generalized weakness Urinary tract infection associated with catheterization of urinary tract, unspecified indwelling urinary catheter type, initial encounter ([facility]) Hyponatremia Hyposmolality and/or hyponatremia Hematuria, unspecified type [...] Call MD for each episode of hypoglycemia. CAPACITY ANALYST STATES GLUTOSE-15 CONTAINS GLUCOSE 40% W/W (50% [...] 0943 (Given - Provider: Elena Izquierdo RN) fluticasone propionate (FLONASE) 50 mcg/actuation [...] Call MD for each episode of hypoglycemia. CAPACITY ANALYST STATES GLUTOSE-15 CONTAINS GLUCOSE 40% W/W (50% [...] Call MD for each episode of hypoglycemia. CAPACITY ANALYST STATES GLUTOSE-15 CONTAINS GLUCOSE 40% W/W (50% [...] 10/23/2023 documented in this encounter Care Teams Linux Systems Administrator Relationship Specialty Start Date End Date Meliton Washburn MD PCP - General Family Medicine 04/01/22 documented as of this encounter
--- OUTSIDE RECORDS SUMMARY | 2024-06-06 23:49 | XMS_ITS | Encounter Summary ---
Author Organization [facility] Address [address] [facility] [address] [place] [address] Care Team Providers Care Quail Farmer Name Role Phone Tapan Stone MD Primary Care Provider [phone] Reason for Visit * Reason Comments New Patient Follow-up Follow up after Test ing * Consultation (Routine) - Closed Specialty Diagnoses / Procedures Referred By Contac t Referred To Contact Cardiology Diagnoses Murmur, heart Tapan Stone MD [address] [place] [address] Phone: tel: fax: [facility] Medical [facility] Cardiology [address] [facility] [address] [place] [address] Phone: tel: fax: Referral ID Status Reason Start Date Expiration Date V isits Requested Visits Authorized [id number] Closed Specialty Services Required 08/17/2021 09/16/2022 1 1 Encounter Details Date Type Department Care Team (Late st Contact Info) Description 09/28/2021 12:15 PM CDT Office Visit [facility] Cardiology [address] [facility] [address] [place] [address] Karen Benjamin MD [address] [place] [address] Primary hypertension (Primary Dx); Murmur, heart; High cholesterol; Other chest pain; Aneurysm of ascending aorta (CMS/HCC) (HCC); Nonrheumatic aortic valve stenosis Social History Tobacco Use Types Packs/Day Years Used Date Smoking Tobacco: Former Cigarettes 0.5 50 S tarted: 1974 Smokeless Tobacco: Never Sex and Gender Information Value Date Recorded Sex Assigned at Not on file 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
--- OUTSIDE RECORDS SUMMARY | 2024-06-06 23:49 | XMS_ITS | Encounter Summary ---
Author Organization [facility] Medical Group Address [address] [facility] [address] [place] [address] Care Team Providers Care Message Broker Developer Name Role Phone Meliton Washburn MD Primary Care Provider [phone] Reason for Referral * Cardiology (Routine) - Closed Specialty Diagnoses / Procedures Referred By Contac t Referred To Contact Diagnoses Irregular heart beat Procedures ECG 12 lead Kay Husain NP [address] [address] Phone: tel: fax: [facility] Medical Group Referral ID Status Reason Start Date Expiration Date Visits Re quested Visits Authorized [id number] Closed 04/01/2022 05/01/2023 1 1 Reason for Visit * Reason Comments Hospital Follow Up Encounter Details Date Type Department Care Team ([facility] Contact Info) Description 04/01/2022 10:00 AM CDT Office Visit [facility] Group Cardiology [address] [place] [address] Kay Husain NP [address] [address] Irregular heart beat (Primary Dx); [...] on file Legal 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 [facility] Cardiology [address] [place] [address] Date of Visit: 04/01/2022 Patient ID: Meliton Delacruz 1940 Chief Complaint Patient presents with Hospital Follow Up Meliton Delarcuz is a 81 y.o. male who is [...] at age 76. 04/01/2022 hospital follow-up with BABY ATTENDANT: He was hospitalized at [facility] 02/12-02/16 for complaint of chest pain and [...] (two) times a day, Disp: , Rfl: jzroobppzvuu-waawnwlx-rhgoki (Multivitamin 50 Plus) tablet, Take by mouth [...] the report of chest CT 02/11/2022 from [facility] which ???stable ectasia of ascending aorta measuring 4.4 cm?? compared to chest CT dated 08/05/2021. I called the patient and his and explained this finding and how this measurement is small that we will continue to monitor it, probably an annual chest CT. They verbalized understanding and were appreciative. 04/01/2022 AMANDA Chavez- Nurse Practitioner with [facility] [place] This note is dictated and transcribed using [employer] Direct Software. Rug Dry Room Attendant variancesmay occur. Despite proofreading, typographical errors may [...] 10/04/2022 added in this encounter Care Teams Message Broker Developer Relationship Specialty Start Date End Date Meliton Washburn MD PCP - General Family Medicine 04/01/22 documented as of this encounter
--- OUTSIDE RECORDS SUMMARY | 2024-06-06 23:49 | XMS_ITS | Encounter Summary ---
Author Organization [facility] Healthcare Address [address] [place] [address] Care Team Providers Care Hazardous Materials Tanker Driver Name Role Phone Meliton Washburn MD Primary Care Provider [phone] Encounter Details Date Type Department Care Team (Late st Contact Info) Description 11/11/[address] [facility] Medical Group Nephrology at [address] [place] [address] Sourav Park MD [address] [place] [address] [address] [place] [address] Social History Tobacco Use Types Packs/Day Years Used Date Smoking Tobacco: Former Cigarettes 0.5 50 S tarted: 1975 Smokeless Tobacco: Never [facility] Utilities Answer Date Recorded In the past 12 months has [employer] electric, gas, oil, or water company threatened [...] often do you attend chur ch or gnosticism services? Never 10/24/2023 Do you belong to any clubs o r organizations such as temple groups, unions, fraternal or athletic groups, or [...] place to sleep or slept in a custodial (including now)? No 10/24/2023 Personal Safety Answer Date Recorded Have you ever been in or are you currently in a harmful physical or emotional relationship or is someone making you feel afraid or unsafe? 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 * Telephone Encounter - Sourav Park MD [...] documented as of this encounter Care Teams Hazardous Materials Tanker Driver Relationship Specialty Start Date End Date Meliton Washburn MD PCP - General Family Medicine 04/01/22 documented as of this encounter
--- OUTSIDE RECORDS SUMMARY | 2024-06-06 23:49 | XMS_ITS | Encounter Summary ---
Author Organization [facility] Healthcare Address [address] [place] [address] Care Team Providers Care Flat Breakdown Processor Name Role Phone Meliton Washburn MD Primary Care Provider [phone] Encounter Details Date Type Department Care Team (Late st Contact Info) Description 08/03/2023 Telephone [facility] Cardiology [address] [place] [address] Karen Benjamin MD [address] [place] [address] Social History Tobacco Use Types Packs/Day Years Used Date Smoking Tobacco: Former Cigarettes 0.5 50 S tarted: 1975 Smokeless Tobacco: Never Personal Safety Answer Date Recorded Getting School Help Needed Not on file 06/24 Sex and Gender Information Value Date Recorded Sex Assigned at Not on file Legal Sex Male 3:39 PM SKEIN BLEACHER Gender Identity Not on file Sexual Orientation Not on file documented as of this encounter Miscellaneous Notes * Telephone Encounter - Suni De Jesus MA - 08/03/2023 1:21 PM CST Called and spoke to Fani, patient's spouse. The monitor (phone) was accidentally put in the washing machine. Advised her to contact [facility] when the new one arrives and they will walk her through the activation process and let her know how long the monitor will be extended. She voiced understanding. N BLEACHER * Telephone Encounter - Lydia Rendon - 08/03/2023 10:44 AM CST Pt spouse reports pt got his heart monitor wet. Pt will be having another monitor sent to him although pt spouse would like to discuss how long he should repeat process of wearing monitor. Requestinga call back to further discuss. Contact:[phone] N BLEACHER documented in this encounter Plan of Treatment Not on file documented as of this encounter Visit Diagnoses Not on filedocumented in this encounter Care Teams Flat Breakdown Processor Relationship Specialty Start Date End Date Meliton Washburn MD PCP - General Family Medicine 04/01/22 documented as of this encounter
--- OUTSIDE RECORDS SUMMARY | 2024-06-06 23:49 | XMS_ITS | Encounter Summary ---
Author Organization [facility] Healthcare Address [address] [place] [address] Care Team Providers Care Chemical Strength Tester Name Role Phone Meliton Washburn MD Primary Care Provider [phone] [phone] Encounter Details Date Type Department Care Team (Late st Contact Info) Description 10/27/2023 Telephone [facility] Medical Group Nephrology at [address] [place] [address] Sourav Park MD [address] [place] [address] [address] Social History Tobacco Use Types Packs/Day Years Used Date Smoking Tobacco: Former Cigarettes 0.5 50 S tarted: 1975 Smokeless Tobacco: Never [facility] Utilities Answer Date Recorded In the past 12 months has [employer] electric, gas, oil, or water company threatened [...] often do you attend chur ch or jew services? 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 Please arrange outpatient [...] hypertension documented in this encounter Care Teams Chemical Strength Tester Relationship Specialty Start Date End Date Meliton Washburn MD PCP - General Family Medicine 04/01/22 documented as of this encounter
--- OUTSIDE RECORDS SUMMARY | 2024-06-06 23:49 | XMS_ITS | Encounter Summary ---
Author Organization [facility] Medical Group Address [address] [facility] [address] [place] [address] Care Team Providers Care Hand Edger Name Role Phone Tapan Stone MD Primary Care Provider [phone] Encounter Details Date Type Department Care Team (Late st Contact Info) Description 09/07/2021 Documentation [facility] Cardiology [address] [facility] [address] [facility] [address] [place] [phone] Meliton Sheehan MD [address] [facility] [address] [place], [place] [id number] Social History Tobacco Use Types Packs/Day Years Used Date Smoking Tobacco: Never Assessed Sex and Gender Information Value Date Recorded Sex Assigned at Not on file 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 The heart rate [...] Rare ventricular ectopic activity Meliton Sheehan MD [facility] Voice recognition software was used to complete this document, therefore, sulfur chloride operator variances may occur. 09/07/21 documented in this encounter Plan of Treatment Not on file documented as of this encounter Visit Diagnoses Not on filedocumented in this encounter Care Teams Hand Edger Relationship Specialty Start Date End Date Tapan Stone MD [address] [place] [address] PCP - General Family Medicine 08/05/21 03/31/22 documented as of this encounter
--- OUTSIDE RECORDS SUMMARY | 2024-06-06 23:49 | XMS_ITS | Encounter Summary ---
Author Organization [facility] Healthcare Address [address] [place] [address] Care Team Providers Care Community Administrator Name Role Phone Meliton Washburn MD Primary Care Provider [phone] Encounter Details Date Type Department Care Team (Late st Contact Info) Description 11/11/2023 Telephone [facility] Medical Group Nephrology at [address] [place] [address] Sourav Park MD [address] [place] [address] [address] [place] [address] Social History Tobacco Use Types Packs/Day Years Used Date Smoking Tobacco: Former Cigarettes 0.5 50 S tarted: 1975 Smokeless Tobacco: Never [facility] Utilities Answer Date Recorded In the past 12 months has [employer] electric, gas, oil, or water company threatened [...] often do you attend chur ch or bahai services? Never 10/24/2023 Do you belong to any clubs o r organizations such as zoroastrian groups, unions, fraternal or athletic groups, or [...] place to sleep or slept in a residential (including now)? No 10/24/2023 Personal Safety Answer Date Recorded Have you ever been in or are you currently in a harmful physical or emotional relationship or is someone making you feel afraid or unsafe? 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
--- OUTSIDE RECORDS SUMMARY | 2024-06-06 23:49 | XMS_ITS | Encounter Summary ---
Author Organization [facility] Medical Group Address [address] [facility] [address] [place] [address] Care Team Providers Care Wet Pan Mixer Name Role Phone Tapan Stone MD Primary Care Provider [phone] Reason for Visit * Cardiology (Routine) - Closed Specialty Diagnoses / Procedures Referred By Contac t Referred To Contact Diagnoses Murmur, heart Procedures Transthoracic Echo Complete W Doppler/CF Tapan Stone MD [address] [place] [address] Phone: tel: fax: [facility] Medical Group Referral ID Status Reason Start Date Expiration Date Visits Re quested Visits Authorized [id number] Closed 08/17/2021 09/16/2022 1 1 Encounter Details Date Type Department Care Team (Late st Contact Info) Description 09/21/2021 8:15 AM CDT Ancillary Procedure [facility] Medical [facility] Cardiology [address] [facility] [address] [place] [address] Murmur, heart Social History Tobacco Use Types Packs/Day Years Used Date Smoking Tobacco: Never Assessed Sex and Gender Information Value Date Recorded Sex Assigned at Not on file 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 Left Ventricle: Normal left ventricular systolic function. [...] cm. Electronically Signed By: Dr. Karen Benjamin [facility] 2021-09-21 12:12:09 CDT CC: CC: Procedure Note Karen Benjamin MD - 09/21/2021 [facility] Medical Group Cardiology [address] [facility] [address] [id number] [address] [facility] [address], [place] [address] P:[phone] P:[phone] Echocardiographic Report Patient Name: MELITON CARREONPatient ID: [id number] : [id number] Date: 09/21/2021 8:01:00 AM Gender: MAccession #: [id number] Tech: GMLocation: [place] Ref.Provider: Johnson STONEt(Cm): 183 BSA: 2.08Weight(Kg): 86.18 [...] 0.40 - 0.80 ] m/s MV Decel Uhsi841 [ 150 - 200 ] msec PV Peak Vel1.35 [ 0.40 - 0.80 ] m/s TR Peak Vel2.96 [ 0.40 - 0.80 ] m/s TR Peak PG 35mmHg RVSP43.00 mmHg E'0.10 E/E' 10 - Findings: Interpretation Site: Exam was interpreted at [facility]. Left Ventricle: Normal left ventricular systolic function. [...] cm. Electronically Signed By: Dr. Karen Benjamin [facility] 2021-09-21 12:12:09 CDT CC: CC: Tapan Stone MD CV ECHO PROCEDURES Final Result documented in this encounter Visit Diagnoses Diagnosis Murmur, heart Undiagnosed cardiac murmurs documented in this encounter Care Teams Wet Pan Mixer Relationship Specialty Start Date End Date Tapan Stone MD [address] [place] [address] PCP - General Family Medicine 08/05/21 03/31/22 documented as of this encounter
--- OUTSIDE RECORDS SUMMARY | 2024-06-06 23:49 | XMS_ITS | Encounter Summary ---
Author Organization [facility] Address [address] [place] [address] Care Team Providers Care Brim Greaser Operator Name Role Phone Meliton Washburn MD Primary Care Provider [phone] [phone] Reason for Referral * Cardiology (Routine) - Closed Specialty Diagnoses / Procedures Referred By Contac t Referred To Contact Diagnoses TIA (transient ischemic attack) Procedures Event Monitor Kay Husain NP [address] [address] Phone: tel: fax: [facility] Medical Group Referral ID Status Reason Start Date Expiration Date Visits Re quested Visits Authorized [id number] Closed 07/26/2023 08/24/2024 1 1 TECH Reason for Visit * Reason Comments Hospital Follow Up Encounter Details Date Type Department Care Team ([facility] st Contact Info) Description 07/26/2023 9:00 AM RISK TECH Office Visit [facility] Medical Group Cardiology [address] [place] [address] Kay Husain NP [address] [address] TIA (transient ischemic attack) (Primary [...] on file Legal Sex Male 3:39 PM RISK TECH Gender Identity Not on file Sexual Orientation Not on file documented as of this encounter Last Filed Vital Signs Vital Sign Reading Time Taken Comments Blood Pressure 148/70 07/26/2023 9:01 AM RISK TECH Pulse 62 07/26/2023 9:01 AM RISK TECH Temperature - - Respiratory Rate - - Oxygen Saturation 97% 07/26/2023 9:01 AM RISK TECH Inhaled Oxygen Concentration - - Weight 84.4 kg (186 lb) 07/26/2023 9:01 AM RISK TECH Height 182.9 cm (6') 07/26/2023 9:01 AM RISK TECH Body Mass Index 25.23 07/26/2023 9:01 AM RISK TECH documented in this encounter Progress Notes * Kay Husain, ABRIL - 07/26/2023 9:00 AM CST Images from the original note were not included. [facility] Medical Group Cardiology [address] [place] [address] Date of Visit: 07/26/2023 Patient ID: Meliton [...] at age 76. 04/01/2022 hospital follow-up with MILITARY PERSONNEL SPECIALIST: He was hospitalized at [facility] 02/12-02/16 for complaint of chest pain and [...] low sodium levels. 07/26/2023 hospital follow-up with MILITARY PERSONNEL SPECIALIST: he had a few minutes of expressive aphasia so he was hospitalized at [facility] 07/21/23-07/23/23 for evaluation, and it was unremarkable [...] 04/08/[address] Benjamin, 07/21/2023 [facility] echo report and discharge summary. I have [...] (two) times a day, Disp: , Rfl: lrogrleirgri-whksrfab-thzfwl (Multivitamin 50 Plus) tablet, Take by mouth [...] Ascending Aorta 4.0 cm Echo July 2023 ([facility]) Mild concentric LVH with normal LV systolic function, EF 55-60%, grade 1 diastolic dysfunction, mild LAE, mild aortic valve sclerosis, peak gradient 18 mmHg, mean gradient 9 mmHg, peak velocity 215 cm/s, CALEB 1.8 cm2. CTA chest August 05, 2021 no pulmonary embolus. Ectasia of the ascending aorta measuring 4.[address] 02/11/2022 from [facility] ???stable ectasia of ascending aorta measuring 4.4 [...] indicated based on his clinical course. 07/26/2023 AAMNDA Chavez-BC Nurse Practitioner with [facility] Cardiology This note is dictated and transcribed using [employer] Direct Software. Publication Manager variancesmay occur. Despite proofreading, typographical errors may occur. TECH documented in this encounter Plan of Treatment Not on file documented as of this encounter Results * Event Monitor (08/17/2023 3:59 PM RISK TECH) Anatomical Region Laterality Modality Other Narrative 08/17/2023 4:02 PM RISK TECH AMBULATORY FOREST PATHOLOGY PROFESSOR REPORT Patient Name: Meliton Delacruz Date of [...] was used to complete this document, therefore, loom doffer variances may occur. Ugo Guevara MD, [facility] 08/17/23 Procedure Note Ugo Guevara MD - 08/17/2023 AMBULATORY FOREST PATHOLOGY PROFESSOR REPORT Patient Name: Meliton Delacruz Date of [...] software was used to complete this document, therefore,loom doffer variances may occur. Ugo Guevara MD, [facility] 08/17/23 Kay Husain NP CV CARDIAC SERVICES [facility] Final Result documented in this encounter [...] 10/27/2023 added in this encounter Care Teams Brim Greaser Operator Relationship Specialty Start Date End Date Meliton Washburn MD PCP - General Family Medicine 04/01/22 documented as of this encounter
--- OUTSIDE RECORDS SUMMARY | 2024-06-06 23:49 | XMS_ITS | Encounter Summary ---
Author Organization [facility] Healthcare Address [address] [place] [address] Care Team Providers Care Automatic Print Developer Name Role Phone Meliton Washburn MD Primary Care Provider [phone] [phone] Encounter Details Date Type Department Care Team (Late st Contact Info) Description 11/10/2023 Orders Only [facility] Medical Group Nephrology at [address] [place] [address] ProviderChrist MD [address] [place] [address] Social History Tobacco Use Types Packs/Day Years Used Date Smoking Tobacco: Former Cigarettes 0.5 50 S tarted: 1975 Smokeless Tobacco: Never [facility] Utilities Answer Date Recorded In the [...] often do you attend chur ch or buddhism services? 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
--- OUTSIDE RECORDS SUMMARY | 2024-06-06 23:49 | XMS_ITS | Encounter Summary ---
Author Organization [facility] Healthcare Address [address] [place] [address] Care Team Providers Care Toe Pounder Name Role Phone Meliton Washburn MD Primary Care Provider [phone] Encounter Details Date Type Department Care Team (Late st Contact Info) Description 11/11/2023 Orders Only [facility] Nephrology at [address] [place] [address] ProviderChrist MD [address] [place] [address] Social History Tobacco Use Types Packs/Day Years Used Date Smoking Tobacco: Former Cigarettes 0.5 50 S tarted: 1975 Smokeless Tobacco: Never [facility] Utilities Answer Date Recorded In [...] often do you attend chur ch or methodist services? 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
--- OUTSIDE RECORDS SUMMARY | 2024-06-06 23:49 | XMS_ITS | Encounter Summary ---
Author Organization [facility] Healthcare Address [address] [place] [address] Care Team Providers Care Slab Conditioner Supervisor Name Role Phone Meliton Washburn MD Primary Care Provider [phone] Reason for Visit * Reason Comments Aortic Aneurysm Hypertension Hyperlipidemia Annual f/u Encounter Details Date Type Department Care Team (Late st Contact Info) Description 04/08/2023 8:45 AM CDT Office Visit [facility] Cardiology [address] [place] [address] Karen Benjamin MD [address] [address] Aneurysm of ascending aorta without [...] on file 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 04/01/2022 hospital follow-up with FLASH [facility]EN OPERATOR: He was hospitalized at [facility] 02/12-02/16 for complaint of chest pain and [...] nasal spray metFORMIN (GLUCOPHAGE) 500 mg tablet ogxfzfhtggpo-[id number]-tvkpxj (Multivitamin 50 Plus) tablet niacin ER (NIASPAN) [...] Apparently patient had repeat CT scan at [facility] February 11, 2022 and reported [...] documented as of this encounter Care Teams Slab Conditioner Supervisor Relationship Specialty Start Date End Date Meliton Washburn MD PCP - General Family Medicine 04/01/22 documented as of this encounter
--- OUTSIDE RECORDS SUMMARY | 2024-06-06 23:51 | XMS_ITS | Continuity of Care Document ---
Author Organization [facility] Address [address] [facility] [address] [place] [address] Phone Care Team Providers Care Hitting Coach Name Role Phone Holland OD, Christian Unavailable [...] Diagnoses Date Provider Providers Copied on Encounter [facility], [address] [place] [address] [address], [place], [place], [id number], tel:[phone] [facility] No Information Nov-0 6-200 9 Holland OD Christian. [address] [facility] , [address], [place], [address], [place]. tel:[phone] Referring Provider: Dale Stone MD [place], [address] [place] [address], [address]. tel:[phone] [facility] [place] [facility], [address] [place] [address] [address], [place], [place], [id number], tel:[phone] [facility] No Information Oct-0 2-200 8 Holland OD Christian. [address] , [address], [place], [address], [place]. tel:[phone] Referring Provider: Dale Stone MD [place], [address] [place] [address], [address]. tel:[phone] [facility] [place] [facility], [address], [place], [place], [id number], [place] tel:[phone] [facility] No Information Mar-3 0-200 7 [facility] . [address] [facility], [address], [place], [place], [id number], [place]. tel:[phone] Consulting Provider: Melodie Tran, [address] [place] [address], [address]. tel:[phone] [facility] [place] [facility], [address], [place], [place], [id number], [place] tel:[phone] [facility] No Information Aug-3 0-200 7 [facility] . [address] [facility], [address], [place], [place], [address], [place]. tel:[phone] Referring Provider: Delvin Foster, [address] [place] [address], [address]. tel:[phone] lting Provider: Melodie Tran, [address] [place] [address], [address]. tel:[phone] Family History Family Member Type Diagnosis Age At Onset No Information Payers Payer name Insurance type Covered green party ID Authoriza tion(s) Medicare [facility] [id number] [facility] CI [id number] Social History Type Description Quantity Date Captured [...]
== END 2024-06-02 16:44 | disposition home or self-care (01) ==
PROVIDERS: Emergency Provider Physician Assistant; PCP Family Medicine
DX: T83.9XXA Unspecified complication of genitourinary prosthetic device, implant and graft, initial encounter (principal); I50.30 Unspecified diastolic (congestive) heart failure; Z86.73 Personal history of transient ischemic attack (TIA), and cerebral infarction without residual deficits; I11.0 Hypertensive heart disease with heart failure; E78.2 Mixed hyperlipidemia; Z87.891 Personal history of nicotine dependence
CPT/HCPCS: 81001; 87086; 99283

== ENCOUNTER 2024-06-18 11:51 | Outpatient (RCR) | payer MEDICARE, SELFPAY ==
[2024-03-20 14:43] LABS: Anion Gap 11 mmol/L (4-12); Blood Urea Nitrogen 12 mg/dL (9-20); Calcium 8.7 mg/dL (8.4-10.2); Carbon Dioxide 26 mmol/L (22-30); Chloride 95 mmol/L (98-107); Estimated Glomerular Filt Rate > 60; Glucose 104 mg/dL (65-110); Phosphorus 3.6 mg/dL (2.5-4.5); Potassium 4.1 mmol/L (3.4-5.0); Sodium 132 mmol/L (137-145)
[2024-06-18 20:52] LABS: Albumin Level 3.8 g/dL (3.5-5.1); Anion Gap 3 mmol/L (4-12); Blood Urea Nitrogen 15 mg/dL (9-20); Calcium 8.5 mg/dL (8.4-10.2); Carbon Dioxide 29 mmol/L (22-30); Chloride 101 mmol/L (98-107); Estimated Glomerular Filt Rate > 60; Glucose 135 mg/dL (65-110); Phosphorus 3.8 mg/dL (2.5-4.5); Sodium 133 mmol/L (137-145)
== END 2024-06-18 23:59 | disposition home or self-care (01) ==
LOC: ANHGOSHLAB 11:51
PROVIDERS: PCP Family Medicine
DX: E87.1 Hypo-osmolality and hyponatremia (principal)
CPT/HCPCS: 36415; 80069

== ENCOUNTER 2024-09-13 14:35 | Outpatient (RCR) | payer MEDICARE, SELFPAY ==
[2024-09-13 19:46] LABS: Albumin Level 4.2 g/dL (3.5-5.1); Anion Gap 9 mmol/L (4-12); Blood Urea Nitrogen 12 mg/dL (9-20); Calcium 9.1 mg/dL (8.4-10.2); Carbon Dioxide 28 mmol/L (22-30); Chloride 98 mmol/L (98-107); Estimated Glomerular Filt Rate > 60; Glucose 179 mg/dL (65-110); Phosphorus 3.2 mg/dL (2.5-4.5); Potassium 4.8 mmol/L (3.4-5.0); Sodium 135 mmol/L (137-145)
== END 2024-12-12 23:59 | disposition home or self-care (01) ==
LOC: ANHGOSHLAB 14:35
PROVIDERS: PCP Family Medicine
DX: E87.1 Hypo-osmolality and hyponatremia (principal)
CPT/HCPCS: 36415; 80069

== ENCOUNTER 2024-10-01 14:40 | Inpatient (IN) | payer MEDICARE, SELFPAY ==
--- NOTE | ~2024-10-01 | US_ITS ---
EXAMINATION: US venous doppler [facility] DATE: 10/02/2024 12:42 INDICATION: Bilateral lower extremity edema TECHNIQUE: Grayscale ultrasound images without and with compression and Doppler ultrasound images of the bilateral lower extremity veins were obtained. COMPARISON: Reference is made to right lower extremity Doppler ultrasound dated 06/08/2020 which was unremarkable. FINDINGS: The visualized portions of right common femoral vein, profunda (deep) femoral vein, femoral vein, pop liteal vein, peroneal veins, and greater saphenous vein outflow are patent. Noncompressibility is identified within the right gastrocnemius vein, with a filling defect, and othe rwise patent. Noncompressibility and absence of flow is identified within the right posterior tibial vein. The visualized portions of left common femoral vein, profunda femoral vein, femoral vein, popliteal v ein, peroneal veins, posterior tibial veins, and greater saphenous vein outflow are patent. Noncompressibility and a relative paucity of flow is identified within the left gastrocnemius vein. Augmentation was deferred IMPRESSION: Deep venous thrombosis within the bilateral gastrocnemius veins and the right posterior tibial veins, as detailed above Reviewed, dictated and finalized at location A. IMPRESSION: Deep venous thrombosis within the bilateral gastrocnemius veins and the right p osterior tibial veins, as detailed above
--- NOTE | ~2024-10-01 | CT_ITS ---
EXAMINATION: CTA BRAIN/CAROTID DATE: 10/01/2024 16:32 INDICATION: Stroke with difficulty with word finding TECHNIQUE: Computed tomographic angiography (CTA) of the head and neck was performed with 100 mL Omni paque-350 intravenous contrast. Multiplanar reconstructions and maximum intensity projection 3D-recon structions of the carotid arteries and of the intracranial arteries were created by the technologist on a separate workstation. Precontrast CT of the head was also obtained. Automated exposure control and iterative reconstruction technique were employed.The dose-length product was 1634.84 mGy-cm. COMPARISON: None. FINDINGS: Carotid arteries: Mild aneurysmal dilation of the visualized portions of the ascending thoracic aorta measuring up to 4 .1 cm in maximal diameter. There is no evident atherosclerotic plaque with 0% stenosis of the right c arotid bulb relative to normal distal artery lumen diameter (NASCET criteria). There is small amount of atherosclerotic plaque with 10% stenosis of the left carotid bulb relative to normal distal artery lumen diameter. There is mosaic attenuation in the visualized upper lungs likely related to mild ate lectasis due to expiratory phase of imaging. Likely benign 1.3 cm right thyroid nodule. Moderate to s evere lower cervical spondylosis. Head: No acute intracranial hemorrhage, acute infarction or abnormal extra axial fluid collection. There is moderate scattered white matter hypoattenuation consistent with chronic small vessel ischemic diseas e. Symmetric prominence of the sulci consistent with mild age-appropriate diffuse cerebral volume los s. Ventricles are normal and symmetric. No mass/mass effect. The orbits, paranasal sinuses and mastoi d air cells are normal. Intracranial arteries Bilateral vertebral arteries are codominant. Extensive not hematoma significant atherosclerotic plaqu e along the bilateral carotid siphons. There is no hemodynamically significant stenosis in the verteb ral, basilar and internal carotid arteries. There are no aneurysms identified. The left A1 and bilate ral P1 segments are patent. The bilateral P1 segments are diminutive with majority of flow to the ananda ateral posterior cerebral arteries likely supplied from the internal carotid arteries via a patent la rger caliber bilateral posterior communicating arteries. The right anterior cerebral arteries supplie d from the left A1 segment via a patent anterior communicating artery. Cerebral arterial arborization appears symmetric. IMPRESSION: 1. 0% stenosis of the right carotid bulb relative to normal distal artery lumen diameter (NASCET crit eria). 2. 10% stenosis of the left carotid bulb relative to normal distal artery lumen diameter. 3. Normal anatomic relation to the [place] as detailed above. No hemodynamically significant stenosis, aneurysm or thrombosis. 4. Age-related changes the brain including mild diffuse volume loss and moderate scattered white osito er hypoattenuation consistent with chronic small vessel ischemic disease. Reviewed, dictated and finalized at location A. IMPRESSION: 1. 0% stenosis of the right carotid bulb relative to normal distal artery lumen diameter (NASCET criteria). 2. 10% stenosis of the left carotid bulb relative to normal distal artery lumen diameter. 3. Normal anatomic relation to the [place] as detailed above. No hemod ynamically significant stenosis, aneurysm or thrombosis. 4. Age-related changes the brain including mild diffuse volume loss and moderat e scattered white matter hypoattenuation consistent with chronic small vessel i schemic disease.
--- NOTE | ~2024-10-01 | CT_ITS ---
CTA abdomen pelvis Ordering provider: Rajan Martinez PA-C History: . Multiple DVTs . Comparison: March 29, 2024 Technique: CT angiogram abdomen and pelvis was performed following timed intravenous injection of con trast. Thin slice axial images and reformatted coronal images were obtained. Three dimensional reform atted images of the chest were also obtained using a [employer] workstation. . Automated exposure contro l and iterative reconstruction technique were employed. The dose-length product was 428.21 mGy-cm. 10 0 mL Omnipaque 350 was given IV. FINDINGS: VISUALIZED LOWER CHEST: Mild dependent atelectasis bilaterally. Shift of the heart to the right side is noted. UPPER ABDOMINAL ORGANS: Liver: Normal. Gallbladder: Status post cholecystectomy. Spleen: Normal. Stomach/duodenum: Sliding hiatus hernia. Pancreas: Normal. Adrenals: Normal. Kidneys: Soft tissue density is seen in the left kidney or posteriorly measuring 2.1 cm unchanged fro m previous examination PELVIC ORGANS: The bladder is underfilled with Ahumada's catheter seen in the bladder. Grossly enlarged prostate. BOWEL AND MESENTERY: Colon: No evidence of diverticulitis. No evidence of appendicitis.. Small Bowel: Normal. No obstruction. Peritoneum/mesentery: No free air or free fluid. No mesenteric lymphadenopathy. RETROPERITONEUM: No retroperitoneal lymphadenopathy. ABDOMINAL AORTA: Atherosclerotic changes. Normal in caliber. No dissection. ILIAC ARTERIES AND BRANCHING VESSELS: Atherosclerotic changes. Normal in caliber. RENAL ARTERIES: Normal caliber. CELIAC AXIS AND BRANCHING VESSELS: Normal. Atherosclerotic changes of the splenic artery. SUPERIOR MESENTERIC ARTERY AND BRANCHING VESSELS: Normal. INFERIOR MESENTERIC ARTERY: Normal. Atherosclerotic changes at the origin. VISUALIZED FEMORAL ARTERIES: Atherosclerotic changes. MUSCULOSKELETAL: Superficial soft tissues: The superficial soft tissues are normal. Bones: Age appropriate degenerative changes of the spine. Bilateral osteoarthritic changes. Bilateral sacroiliitis with fusion bilaterally. IMPRESSION: 1. No evidence of appendicitis, diverticulitis or intestinal obstruction. 2. No evidence of aneurysm or dissection seen in the aorta. 3. Soft tissue density in the left kidney unchanged from previous examination. 4. Enlarged prostate. 5. Sliding hiatus hernia. Reviewed, dictated and finalized at location A.
--- NOTE | ~2024-10-01 | XR_ITS ---
XR chest 1V 10/01/2024 16:35 Indication: Difficulty speaking. Procedure: AP view of the chest Comparison: No prior studies for comparison. Findings: Borderline heart size. There is atherosclerosis of the aorta. No focal air space disease, p ulmonary edema, pleural effusion or suspected pneumothorax. Enlarged pulmonary arteries consistent wi th pulmonary hypertension. Impression: 1: No acute cardiopulmonary disease. Reviewed, dictated and finalized at location B. Impression: 1: No acute cardiopulmonary disease.
--- NOTE | ~2024-10-01 | MR_ITS ---
EXAMINATION: MR brain/brain stem wo/w con DATE: 10/02/2024 13:02 INDICATION: Transient ischemic episode. TECHNIQUE: Magnetic resonance imaging (MRI) of the brain and brainstem was performed without and with 18 mL ProHance intravenous contrast. Sequences included sagittal and axial T1-weighted SE, axial dif fusion-weighted FS SE, axial T2*-weighted GRE, axial T2-weighted FLAIR, and axial T2-weighted FSE. Po stcontrast axial and coronal T1-weighted SE was obtained. Apparent diffusion coefficient (ADC) maps w ere created. COMPARISON: Brain MR dated 07/21/2023 FINDINGS: There are no areas of restricted diffusion to suggest acute infarction. No intracranial hemorrhage or abnormal intracranial mass lesion. Unchanged small focus of susceptibility artifact in the right tem poral occipital region without evident correlate on intervening CT most likely sequela of chronic otf rohemorrhage such as in the setting of hypertension. There is been some interval progression in still moderate scattered nonspecific increased T2-weighted signal intensity in the cerebral white matter, predominantly involving the deep and periventricular white matter which is within normal limits for a ge and likely sequela of chronic small vessel ischemic disease. There are no intraparenchymal signal abnormalities seen on the other pulse sequences. The ventricles are symmetric and normal in size. The re are no abnormal extra-axial fluid collections. Flow voids are seen in the cerebral arteries on the T2-weighted sequences consistent with their expected patency. Mild mucosal thickening the bilateral ethmoid sinuses. Visualized orbits and soft tissues are unremarkable. There are no areas of abnormal enhancement on the post contrast images. IMPRESSION: 1. No acute intracranial process or abnormally enhancing brain lesions. 2. Mild interval progression in still moderate scattered nonspecific periventricular predominant whit e matter T2 hyperintensity which is within normal limits for age and likely sequela of chronic small vessel ischemic disease. 2. Unchanged small focus of susceptibility artifact in the right temporal occipital region most likel y related to old blood products secondary to chronic microhemorrhage. Reviewed, dictated and finalized at location A. IMPRESSION: 1. No acute intracranial process or abnormally enhancing brain lesions. 2. Mild interval progression in still moderate scattered nonspecific periventri cular predominant white matter T2 hyperintensity which is within normal limits for age and likely sequela of chronic small vessel ischemic disease. 2. Unchanged small focus of susceptibility artifact in the right temporal occip ital region most likely related to old blood products secondary to chronic micr ohemorrhage.
[2024-10-01 14:44] VITALS: BP 139/60; PULSE 67; RESP 16; TEMP 36.5; O2SAT 99
[2024-10-01 14:46] LABS: Glucose Point of Care 193 mg/dl (65-105)
--- NOTE | 2024-10-01 14:48 | ECG_ITS ---
Test Date: 2024-10-01 14:50:11 Measurements Intervals Bruno Rate: 64 P: 32 [place]: 162 QRS: -18 QRSD: 110 T: 99 QT: 433 QTc: 448 Interpretive Statements SINUS RHYTHM INCOMPLETE RIGHT BUNDLE BRANCH BLOCK MINIMAL Q WAVES- HIGH LATERAL LEADS NONSPECIFIC ST & T-WAVE ABNORMALITY- DIFFUSE LEADS BASELINE ARTIFACT- I, II, III, AVR, AVL, AVF, V1 BORDERLINE ECG No previous ECG available for comparison Electronically Signed On 10-01-2024 15:19:21 CDT by Juan Antonio Escalante D.O.
[2024-10-01 15:08] VITALS: BP 138/68; PULSE 63; RESP 16; O2SAT 97
[2024-10-01 15:09] VITALS: BP 138/68; PULSE 65; RESP 17; O2SAT 98
[2024-10-01 15:17] LABS: Basophils Percent Auto 0.7 % (0.2-1.2); Eosinophils Percent Auto 0.7 % (0-4.4); Hematocrit 36.3 % (42.0-52.0); Hemoglobin 11.8 g/dL (14.0-18.0); Immature Granulocyte Absolute 0.02 K/mm3 (0.00-0.031); Immature Granulocyte Percent A 0.4 % (0-0.5); Lymphocytes Absolute Auto 0.87 K/mm3 (0.9-3.2); Lymphocytes Percent Auto 15.6 % (18.3-44.2); Mean Corpuscular HGB Conc 32.5 g/dl (32-36); Mean Corpuscular Hemoglobin 28.6 pg (26-34); Mean Corpuscular Volume 87.9 fl (80-100); Mean Platelet Volume 9.7 fl (7.4-10.4); Monocytes Absolute Auto 0.4 K/mm3 (0.1-0.6); Neutrophils Absolute Auto 4.2 K/mm3 (1.3-6.7); Neutrophils Percent Auto 75.6 % (45.5-73.1); Platelet Count Result 248 k/mm3 (150-375); Red Blood Count 4.13 M/mm3 (4.6-6.20); Red Cell Distribution Width 12.5 % (11.5-14.5); White Blood Count 5.6 K/mm3 (4.5-10.0)
--- NOTE | 2024-10-01 15:18 | ED.NEUROSD ---
HPI - Neuro Symptoms/Deficit General Chief Complaint: Neuro Symptoms/Deficit <Yonathan Sun MD - Last Filed: 10/01/24 21:36> Stated Complaint: my mouth and brain aren't working together <Yonathan Sun MD - Last Filed: 10/01/24 21:36> Time Seen by Provider: 10/01/24 15:16 <Yonathan Sun MD - Last Filed: 10/01/24 21:36> Source: patient and family <Yonathan Sun MD - Last Filed: 10/01/24 21:36> Mode of arrival: ambulatory <Yonathan Sun MD - Last Filed: 10/01/24 21:36> Limitations: no limitations <Yonathan Sun MD - Last Filed: 10/01/24 21:36> History of Present Illness HPI Narrative: 84 years old white male came from home by private car complaining of trouble speaking lasted for few minutes currently resolved. Started 30 minutes prior to arrival to the emergency room. Patient denies any other focal neuro deficit. Currently patient is awake, alert oriented x4, denying any symptoms. History of TIA July 2023, not on any anti-platelet or anticoagulant medication, diabetes, hypertension, hyperlipidemia. Patient does not smoke or drink or use drugs. History of anxiety. <Yonathan Sun MD - Last Filed: 10/01/24 21:36> Related Data Home Medications: Home Medications ?Medication ?Instructions ?Recorded ?Confirmed ?Last Taken ?Type cetirizine 10 mg tablet (Zyrtec) 10 mg PO DAILY 07/04/19 05/25/24 04/01/20 History multivitamin (Multiple Vitamins 1 tablet PO DAILY 02/29/20 05/25/24 04/01/20 History tablet) finasteride 5 mg tablet 5 mg PO DAILY 02/26/22 05/25/24 Unknown History mecobalamin (vitamin B12) 1,000 1,000 mcg PO HS 05/18/22 05/25/24 Unknown History mcg chewable tablet ascorbate calcium (vitamin C) 500 500 mg PO DAILY 04/15/23 05/25/24 Unknown History mg tablet ibuprofen 600 mg tablet 600 mg PO TID PRN Pain, Mild 10/15/23 05/25/24 Unknown History ferrous sulfate 325 mg (65 mg 325 mg PO DAILY 11/03/23 05/25/24 Unknown History iron) tablet polyethylene glycol 3350 17 17 g PO DAILY 11/03/23 05/25/24 Unknown History gram/dose oral powder (Miralax) vibegron 75 mg tablet (Gemtesa) 75 mg PO DAILY 11/03/23 05/25/24 Unknown History <Yonathan Sun MD - Last Filed: 10/01/24 21:36> Allergies/Adverse Reactions: Allergies Allergy/AdvReac Type Severity Reaction Status Date / Time adhesive tape Allergy Mild Rash Verified 05/25/24 10:43 neomycin Allergy Mild Rash Verified 05/25/24 10:43 hydrochlorothiazide AdvReac Severe hyponatremi Verified 05/25/24 10:43 a Sulfa (Sulfonamide AdvReac Intermediate Nausea Verified 05/25/24 10:43 Antibiotics) <Yonathan Sun MD - Last Filed: 10/01/24 21:36> [facility] Past Medical History Medical History: Medical History Pain of right calf UTI symptoms Intramuscular lipoma Diastolic dysfunction Echocardiogram July 2023: EF 55-60% grade 1 diastolic dysfunction, mild concentric left ventricular wall thickness, normal valves Chronic indwelling Ahumada catheter Transient speech disturbance Brain TIA Hematuria Urinary tract infection Chronic anemia Acute hypokalemia Acute metabolic encephalopathy Muscle cramp (~08/05/21) Chest pain (~08/05/21) Arthritis Wears glasses 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 Retained orthopedic hardware Seasonal allergies Vision abnormalities Trimalleolar fracture Essential (primary) hypertension Mixed hyperlipidemia PVC (premature ventricular contraction) <Yonathan Sun MD - Last Filed: 10/01/24 21:36> Surgical History Surgical History: Surgical History Status post open reduction with internal fixation (ORIF) of fracture of ankle History of prostate biopsy Hx of cholecystectomy <Yonathan Sun MD - Last Filed: 10/01/24 21:36> Family History Family History: Family History Father Diabetes mellitus Acute myocardial infarction Hypertension Cerebrovascular accident Mother Family history of malignant neoplasm <Yonathan Sun MD - Last Filed: 10/01/24 21:36> Social History Social History: Social History Social History: Surrogate medical decision maker: Fani Delacruz, spouse. Code status: Full code. Smoking packs per day: 1 Smoking cigarettes per day: 20.0 Years smoked: 14 Smoking pack-years: 14.00 Smoking status: Former smoker Tobacco type: cigarettes Alcohol intake: never Alcohol use details: FEW DRINKS/YEAR Substance use: never Substance use type: does not use Do You Feel Safe in your Home?: Yes Lack of Transportation: No Lack of Food: Never True Current Housing: I Have Housing Concerned About Future Housing: No Difficulty Paying Gas/Electric Bills: No Difficulty Paying for Meds: No Currently Unemployed: No Education: Trade/Vocational Certificate Difficulty w/ Childcare or Family Care: No Living arrangements: with family Occupation/Education: retired Spiritual care concerns: No <Yonathan Sun MD - Last Filed: 10/01/24 21:36> Course Vital Signs Vital signs: Vital Signs Temperature 36.5 C 10/01/24 14:44 Pulse Rate 67 10/01/24 14:44 Respiratory Rate 16 10/01/24 14:44 Blood Pressure 139/60 10/01/24 14:44 Pulse Oximetry 99 10/01/24 14:44 Oxygen Delivery Room Air 10/01/24 14:44 Temperature 36.5 C 10/01/24 14:44 Pulse Rate 65 10/01/24 15:09 Respiratory Rate 17 10/01/24 15:09 Blood Pressure 138/68 10/01/24 15:09 Pulse Oximetry 98 10/01/24 15:09 Oxygen Delivery Room Air 10/01/24 14:44 <Yonathan Sun MD - Last Filed: 10/01/24 21:36> Vital Signs Temperature 36.5 C 10/01/24 14:44 Pulse Rate 67 10/01/24 14:44 Respiratory Rate 16 10/01/24 14:44 Blood Pressure 139/60 10/01/24 14:44 Pulse Oximetry 99 10/01/24 14:44 Oxygen Delivery Room Air 10/01/24 14:44 Temperature 36.5 C 10/01/24 14:44 Pulse Rate 65 10/01/24 15:09 Respiratory Rate 17 10/01/24 15:09 Blood Pressure 138/68 10/01/24 15:09 Pulse Oximetry 98 10/01/24 15:09 Oxygen Delivery Room Air 10/01/24 14:44 <Nat Wolff PA-C - Last Filed: 10/01/24 18:32> MDM - Neuro Symptoms/Deficit MDM Narrative Medical decision making narrative: PATIENT PRESENTS WITH TIA SYMPTOMS VITAL SIGNS ARE STABLE PHYSICAL EXAMINATION IS UNREMARKABLE DIFFERENTIAL DIAGNOSIS INCLUDES TIA, ANXIETY LIKE SYMPTOMS, ELECTROLYTE IMBALANCE, DEHYDRATION BLOOD WORKUP TODAY INCLUDES CBC, CMP, TROPONIN SHOWED SODIUM 132, OTHERWISE WITHIN NORMAL LIMIT CT HEAD WITHOUT CONTRAST SHOWED NO ACUTE ABNORMALITY, CTA HEAD AND NECK SHOWED NO ACUTE ABNORMALITY CHEST X-RAY SHOWED NO ACUTE ABNORMAL <Yonathan Sun MD - Last Filed: 10/01/24 21:36> Differential Diagnosis Differential diagnosis: Likely other ( ABOVE) <Yonathan Sun MD - Last Filed: 10/01/24 21:36> Medical Records Attestation: I reviewed the patient's medical records. <Yonathan Sun MD - Last Filed: 10/01/24 21:36> Lab Data Attestation: I reviewed the patient's lab results. <Yonathan Sun MD - Last Filed: 10/01/24 21:36> Result diagrams: 10/01/24 14:59 10/01/24 14:59 <Yonathan Sun MD - Last Filed: 10/01/24 21:36> Labs: Lab Results 10/01/24 10/01/24 Range/Units 14:44 14:59 WBC 5.6 (4.5-10.0) K/mm3 RBC 4.13 L (4.6-6.20) M/mm3 Hgb 11.8 L (14.0-18.0) g/dL Hct 36.3 L (42.0-52.0) % MCV 87.9 (80-100) fl MCH 28.6 (26-34) pg MCHC 32.5 (32-36) g/dl RDW 12.5 (11.5-14.5) % Plt Count 248 (150-375) k/mm3 MPV 9.7 (7.4-10.4) fl Immature Gran % (Auto) 0.4 (0-0.5) % Neut % (Auto) 75.6 H (45.5-73.1) % Lymph % (Auto) 15.6 L (18.3-44.2) % [place] % (Auto) 7.0 (2.6-8.5) % Eos % (Auto) 0.7 (0-4.4) % Baso % (Auto) 0.7 (0.2-1.2) % Lymph # (Auto) 0.87 L (0.9-3.2) K/mm3 [place] # (Auto) 0.4 (0.1-0.6) K/mm3 Eos # (Auto) 0.0 (0-0.3) K/mm3 Baso # (Auto) 0.0 (0.0-0.1) K/mm3 Abs Immat Gran (auto) 0.02 (0.00-0.031) K/mm3 Absolute Neuts (auto) 4.2 (1.3-6.7) K/mm3 Absolute Nucleated RBC 0.000 (0.0-0.012) K/mm3 Nucleated RBC % 0.0 (0.0-0.2) % PT 13.3 (11.1-14.7) Seconds INR 1.0 APTT 26.9 (22.3-36.8) Seconds Sodium 132 L (137-145) mmol/L Potassium 3.9 (3.4-5.0) mmol/L Chloride 98 (98-107) mmol/L Carbon Dioxide 24 (22-30) mmol/L Anion Gap 10 (4-12) mmol/L BUN 14 (9-20) mg/dL Creatinine 0.89 (0.7-1.3) mg/dL Estim Creat Clear Calc 59 ml/min Estimated GFR > 60 (59 - ) Glucose 180 H (65-110) mg/dL POC Capillary Glucose 193 H (65-105) mg/dl Calcium 8.3 L (8.4-10.2) mg/dL Total Bilirubin 0.5 (0.2-1.3) mg/dL AST 23 (17-59) U/L ALT 18 (6-50) U/L Alkaline Phosphatase 113 (38-126) U/L Troponin I < 0.012 (0.000-0.034) ng/mL Total Protein 7.0 (6.3-8.2) g/dL Albumin 4.2 (3.5-5.1) g/dL <Yonathan Sun MD - Last Filed: 10/01/24 21:36> Lab Results 10/01/24 10/01/24 Range/Units 14:44 14:59 WBC 5.6 (4.5-10.0) K/mm3 RBC 4.13 L (4.6-6.20) M/mm3 Hgb 11.8 L (14.0-18.0) g/dL Hct 36.3 L (42.0-52.0) % MCV 87.9 (80-100) fl MCH 28.6 (26-34) pg MCHC 32.5 (32-36) g/dl RDW 12.5 (11.5-14.5) % Plt Count 248 (150-375) k/mm3 MPV 9.7 (7.4-10.4) fl Immature Gran % (Auto) 0.4 (0-0.5) % Neut % (Auto) 75.6 H (45.5-73.1) % Lymph % (Auto) 15.6 L (18.3-44.2) % [place] % (Auto) 7.0 (2.6-8.5) % Eos % (Auto) 0.7 (0-4.4) % Baso % (Auto) 0.7 (0.2-1.2) % Lymph # (Auto) 0.87 L (0.9-3.2) K/mm3 [place] # (Auto) 0.4 (0.1-0.6) K/mm3 Eos # (Auto) 0.0 (0-0.3) K/mm3 Baso # (Auto) 0.0 (0.0-0.1) K/mm3 Abs Immat Gran (auto) 0.02 (0.00-0.031) K/mm3 Absolute Neuts (auto) 4.2 (1.3-6.7) K/mm3 Absolute Nucleated RBC 0.000 (0.0-0.012) K/mm3 Nucleated RBC % 0.0 (0.0-0.2) % PT 13.3 (11.1-14.7) Seconds INR 1.0 APTT 26.9 (22.3-36.8) Seconds Sodium 132 L (137-145) mmol/L Potassium 3.9 (3.4-5.0) mmol/L Chloride 98 (98-107) mmol/L Carbon Dioxide 24 (22-30) mmol/L Anion Gap 10 (4-12) mmol/L BUN 14 (9-20) mg/dL Creatinine 0.89 (0.7-1.3) mg/dL Estim Creat Clear Calc 59 ml/min Estimated GFR > 60 (59 - ) Glucose 180 H (65-110) mg/dL POC Capillary Glucose 193 H (65-105) mg/dl Calcium 8.3 L (8.4-10.2) mg/dL Total Bilirubin 0.5 (0.2-1.3) mg/dL AST 23 (17-59) U/L ALT 18 (6-50) U/L Alkaline Phosphatase 113 (38-126) U/L Troponin I < 0.012 (0.000-0.034) ng/mL Total Protein 7.0 (6.3-8.2) g/dL Albumin 4.2 (3.5-5.1) g/dL <Nat Wolff PA-C - Last Filed: 10/01/24 18:32> Imaging Data Radiologist's impression: Impressions Chest X-Ray 10/01/24 16:37 Impression: 1: No acute cardiopulmonary disease. Head/Neck CTA 10/01/24 16:45 IMPRESSION: 1. 0% stenosis of the right carotid bulb relative to normal distal artery lumen diameter (NASCET criteria). 2. 10% stenosis of the left carotid bulb relative to normal distal artery lumen diameter. 3. Normal anatomic relation to the comanche of [place] as detailed above. No hemodynamically significant stenosis, aneurysm or thrombosis. 4. Age-related changes the brain including mild diffuse volume loss and moderate scattered white matter hypoattenuation consistent with chronic small vessel ischemic disease. <Yonathan Sun MD - Last Filed: 10/01/24 21:36> Critical Care Time Critical Care Time Critical Care Time: No <Yonathan Sun MD - Last Filed: 10/01/24 21:36> Discharge Plan Discharge Clinical Impression: Brain TIA <Yonathan Sun MD - Last Filed: 10/01/24 21:36> Patient Disposition: Still a Patient <Yonathan Sun MD - Last Filed: 10/01/24 21:36> Condition: Improved <Yonathan Sun MD - Last Filed: 10/01/24 21:36> Quality Stroke Date of last known normal: 10/01/24 <Yonathan Sun MD - Last Filed: 10/01/24 21:36> Stroke Scale Stroke Scale 1: Stroke scale date:: 10/01/24 <Yonathan Sun MD - Last Filed: 10/01/24 21:36> 1a Level of consciousness: alert-0 <Yonathan Sun MD - Last Filed: 10/01/24 21:36> 1b Level of consciousness questions: answers both correctly-0 <Yonathan Sun MD - Last Filed: 10/01/24 21:36> 1c Level of consciousness commands: obeys both correctly-0 <Yonathan Sun MD - Last Filed: 10/01/24 21:36> 2 Best gaze: normal-0 <Yonathan Sun MD - Last Filed: 10/01/24 21:36> 3 Visual: no visual loss-0 <Yonathan Sun MD - Last Filed: 10/01/24 21:36> 4 Facial palsy: normal-0 <Yonathan Sun MD - Last Filed: 10/01/24 21:36> 5a Motor: left arm: no drift-0 <Yonathan Sun MD - Last Filed: 10/01/24 21:36> 5b Motor: right arm: no drift-0 <Yonathan Sun MD - Last Filed: 10/01/24 21:36> 6a Motor: left leg: no drift-0 <Yonathan Sun MD - Last Filed: 10/01/24 21:36> 6b Motor: right leg: no drift-0 <Yonathan Sun MD - Last Filed: 10/01/24 21:36> 7 Limb ataxia: absent-0 <Yonathan Sun MD - Last Filed: 10/01/24 21:36> 8 Sensory: normal-0 <Yonathan Sun MD - Last Filed: 10/01/24 21:36> 9 Best language: no aphasia-0 <Yonathan Sun MD - Last Filed: 10/01/24 21:36> 10 Dysarthria: normal-0 <Yonathan Sun MD - Last Filed: 10/01/24 21:36> 11 Extinction and inattention: no abnormality-0 <Yonathan Sun MD - Last Filed: 10/01/24 21:36> Level:: 0 <Yonathan Sun MD - Last Filed: 10/01/24 21:36> 0 <Nat Wolff PA-C - Last Filed: 10/01/24 18:32>
[2024-10-01 15:29] LABS: Alanine Aminotransferase 18 U/L (6-50); Albumin Level 4.2 g/dL (3.5-5.1); Alkaline Phosphatase 113 U/L (38-126); Anion Gap 10 mmol/L (4-12); Aspartate Amino Transferase 23 U/L (17-59); Bilirubin,Total 0.5 mg/dL (0.2-1.3); Blood Urea Nitrogen 14 mg/dL (9-20); Calcium 8.3 mg/dL (8.4-10.2); Carbon Dioxide 24 mmol/L (22-30); Chloride 98 mmol/L (98-107); Estimated CRCL calculation 59 ml/min; Estimated Glomerular Filt Rate > 60; Glucose 180 mg/dL (65-110); Potassium 3.9 mmol/L (3.4-5.0); Sodium 132 mmol/L (137-145)
[2024-10-01 15:31] LABS: Prothrombin Time 13.3 Seconds (11.1-14.7)
[2024-10-01 15:32] LABS: Partial Thromboplastin Time 26.9 Seconds (22.3-36.8)
[2024-10-01 15:40] LABS: Troponin I < 0.012 ng/mL (0.000-0.034)
--- OUTSIDE RECORDS SUMMARY | 2024-10-01 16:28 | XMS_ITS | Clinical Summary ---
Author Organization [facility] [place] [address] Address [address] [place] [address] Care Team Providers Care Tank Filler Name Role Phone Meliton Washburn MD Primary Care Provider [phone] Allergies Active Allergy Reactions Criticality Noted Date [...] (17 g total) by mouth daily Active cetirizine (ZyrTEC) 10 mg tablet Take 1 tablet (10 mg total) by mouth daily Active Active Problems Problem Noted Date Diagnosed Date Hyponatremia 10/23/2023 Acute cystitis without hematuria 10/23/2023 Generalized weakness 10/23/2023 Hypertension associated with diabetes Hyperlipidemia associated with type 2 diabetes m ellitus Aneurysm of ascending aorta Nonrheumatic aortic valve stenosis Resolved Problems Problem Noted Date Diagnosed Date Resolved Date Other chest pain 10/23/2023 Encounters Date Type Department Care Team Description 08/22/2024 2:30 PM YOKE SETTER Office Visit [facility] Nephrology at [address] [place] [phone] Sourav Park MD Hyponatremia (Primary Dx); Essential hypertension from Last 3 Months Surgical History Surgery [...] Used Date Smoking Tobacco: Former Cigarettes 0.5 50.3 S tarted: 1974 Smokeless Tobacco: Never Tobacco Cessation:Counseling Given: Not Answered [facility] Utilities Answer Date Recorded In the past 12 months has e [employer], gas, oil, or water company threatened to [...] often do you attend chur ch or jain services? Never 10/24/2023 Do you belong to any clubs o r organizations such as uatsdin groups, unions, fraternal or athletic groups, or school groups? No 10/24/2023 How often do you attend meet ings of the clubs or organizations you belong to? Never 10/24/2023 Are you , , di vorced, , never , or living with a partner? 10/24/2023 AUDIT-C Answer Date Recorded Q1: How often do you have a drink containing alcohol? Monthly or less 08/22/2024 Q2: How many drinks containi ng alcohol do you have on a typical day when you are drinking? Patient does not drink Q3: How often do you have si x or more drinks on one occasion? Never 08/22/2024 Overall Financial Resource Strain (CARDIA) Answe r [...] on file Legal Sex Male 3:39 PM YOKE SETTER Gender Identity Not on file Sexual Orientation Not on file Obstetrics History Last Filed Vital Signs Vital Sign Reading Time Taken Comments Blood Pressure 137/81 08/22/2024 2:23 PM YOKE SETTER Pulse 61 08/22/2024 2:23 PM YOKE SETTER Temperature 37 C (98.6 F) 08/22/2024 2:23 PM YOKE SETTER Respiratory Rate 18 10/27/2023 12:40 PM CDT Oxygen Saturation 99% 04/09/2024 10:06 AM CDT Inhaled Oxygen Concentration - - Weight 88.9 kg (196 lb) 08/22/2024 2:23 PM YOKE SETTER Height 182.9 cm (6') 08/22/2024 2:23 PM YOKE SETTER Body Mass Index 26.58 08/22/2024 2:23 PM YOKE SETTER Plan of Treatment Health Maintenance Due Date Last Done Comments Albumin Creatinine Ratio, Urine 1940 Depression Screening 1940 Dilated Eye Exam 1940 Foot Exam 1940 DTaP/Tdap/Td Vaccine (1 - Tdap) 1951 Hepatitis B Screening 1958 Pneumococcal vaccine 65+ (1 of 2 - PCV) 1959 Zoster Vaccine (1 of 2) 1990 Well Visit 65+ 2005 Covid-19 Vaccine (4 - 2023-2 5 season) 2024 05/28/2021, 09/05/2020, 08/15/2020 Influenza Vaccine (#1) 2024 , 03/28/2020, 03/29/2019, Additional history exists Hemoglobin A1C 04/25/2024 10/24/2023 Lipid Panel 10/23/2024 10/24/2023 Fall Risk Assessment 10/26/2024 10/27/2023 eGFR 10/26/2024 10/27/2023, 05/0 01/2024, 10/26/2023, Additional history exists Procedures Procedure Name Priority Date/Time Associated Diagnosis Comments EGFR Routine 10/27/2023 8:55 AM CDT HEMOGLOBIN A1C Routine 10/24/2023 7:46 AM CDT LIPID PANEL Routine 10/24/2023 7:46 AM CDT from Last 3 Months or Most Recently Relevant to Health Maintenance Results * eGFR (10/27/2023 8:55 AM CDT) eGFR >90 >=60 mL/min/1. 73 m2 Comment: Interpretive Data Reference Interval Normal >/= 90 mL/min/1.73m2 Mildly decreased* 60 - 89 mL/min/1.73m2 Mildly to moderately decreased 45 - 59 mL/min/1.73m2 Moderately to severely decreased 30 - 44 mL/min/1.73m2 Severely decreased 15 - 29 mL/min/1.73m2 Kidney Failure < 15 mL/min/1.73m2 *Relative to young adult level Estimated glomerular [...] was last reviewed 2021. Testing performed by: [facility], [address] [place] [address]., [address] Blood 10/27/2023 8:55 AM CDT 10/27/2023 9:00 AM CDT us Ingrid Cheek MD LAB BLOOD ORDERABLES Final Resul t [facility] [address] [facility] Department [place] [address] * (ABNORMAL) Hemoglobin A1c (10/24/2023 7:46 AM CDT) Hgb A1C 6.9(H) 4.0 - 5.6 % Comment:Testing performed by : [address] [address] Estimated Average Glucose 151 mg/dL [facility] Comment: The ADA recommends reporting an estimated Average Glucose (eAG) with all Hemoglobin A1c results using the equation derived from a study of 507 normal and diabetic adults. Minority populations were underrepresented and children were not included. (Diabetes Care 31:8855-3662, 2008). The eAG is not equivalent to a fasting glucose. Testing performed by: [address] [address] Blood 10/24/2023 7:46 AM CDT 10/24/2023 9:33 AM CDT us Jaren Goyal MD LAB BLOOD ORDERABLES Final Result [facility] [address] [facility] Department [place] [address] * Lipid panel (10/24/2023 7:46 AM CDT) Pathologist [facility] [place] Cholesterol 101 30 - 199 mg/dL Comment: Interpretive Data Ages < or = 19 years Acceptable: <170 mg/dL Borderline high: 170-199 mg/dL High: >or= 200 mg/dL Ages > or = 20 years Desirable: <200 mg/dL Borderline high: 200-239 mg/dL High: >or= 240 mg/dL Literature References: 1. Expert Panel on Integrated Guidelines for Cardiovascular Health and Risk Reduction in Children and Adolescents. Pediatrics 2011;128:S213 2. NCEP Expert Panel. Circulation 2004;110:227 Current Interpretive Data was last revised on 2018. Testing performed by: [address] [address] Triglycerides 79 <=149 mg/dL [facility] Comment: Interpretive Data Ages < or = 9 years Acceptable: <75 mg/dL Borderline high: 75-99 mg/dL High: >or= 100 mg/dL Ages 10 to 20 years Acceptable: <90 mg/dL Borderline high: 90-129 mg/dL High: >or= 130 mg/dL Ages > or = 20 years Desirable: <150 mg/dL Borderline high: 150-199 mg/dL High: 200-499 mg/dL Very high: >or= 499 mg/dL Literature References: 1. Expert Panel on Integrated Guidelines for Cardiovascular Health and Risk Reduction in Children and Adolescents. Pediatrics 2011;128:S213 2. NCEP Expert Panel. Circulation 2004;110:227 Current Interpretive Data was last revised on 2018. Testing performed by: [address] [address] HDL 45 >=40 mg/dL AL[facility]O Comment: Interpretive Data Ages < or = 19 years Acceptable: >45 mg/dL Borderline low: 40-45 mg/dL Low: <40 mg/dL Ages > or = 20 years Desirable: >or= 60 mg/dL Low: <40 mg/dL Literature References: 1. Expert Panel on Integrated Guidelines for Cardiovascular Health and Risk Reduction in Children and Adolescents. Pediatrics 2011;128:S213 2. NCEP Expert Panel. Circulation 2004;110:227 Current Interpretive Data was last revised on 2018. Testing performed by: [address] [address] LDL, calculated 40 <=129 mg/dL [facility] Comment: Interpretive Data Ages < or = 19 years Acceptable: <110 mg/dL Borderline high: 110-129 mg/dL High: >or= 130 mg/dL Ages > or = 20 years Optimal: <100 mg/dL Near optimal: 100-129 mg/dL Borderline high: 130-159 mg/dL High: >160 mg/dL Literature References: 1. Expert Panel on Integrated Guidelines for Cardiovascular Health and Risk Reduction in Children and Adolescents. Pediatrics 2011;128:S213 2. NCEP Expert Panel. Circulation 2004;110:227 Current Interpretive Data was last revised on 2018. Testing performed by: [address] [address] Non-HDL Cholesterol 56 mg/dL AL[facility]O Comment: Interpretive Data Ages < or = 19 years Acceptable: <120 mg/dL Borderline high: 120-144 mg/dL High: >145 mg/dL Ages > or = 20 years When triglycerides are >200 mg/dL, Non-HDL cholesterol is a secondary target of therapy with treatment goals that are 30 mg/dL greater than the LDL cholesterol target. Literature References: 1. Expert Panel on Integrated Guidelines for Cardiovascular Health and Risk Reduction in Children and Adolescents. Pediatrics 2011;128:S213 2. NCEP Expert Panel. Circulation 2004;110:227 Current Interpretive Data was last revised on 2018. Testing performed by: [facility], [address] [place] [address]., [address] Chol/HDL ratio 2 ALFR[facility]O Comment:Testing performed by : [facility], [address] [place] [address]., [address] Blood 10/24/2023 7:46 AM CDT 10/24/2023 9:33 AM CDT us Jaren Goyal MD LAB BLOOD ORDERABLES Final Result [facility] [address] [facility] Department [place] [address] from Last 3 Months or Most Recently Relevant to Health Maintenance Insurance MEDICARE [facility] MEDICARE MEDICARE [facility] Advance Directives For more information, please contact: [phone] * Full Code (Latest Code Status on File) Date Activated Date Inactivated Comments 10/23/2023 9:44 PM 10/27/2023 6:43 PM Care Teams Tank Filler Relationship Specialty Start Date End Date Meliton Washburn MD PCP - General Family Medicine 04/01/22
--- OUTSIDE RECORDS SUMMARY | 2024-10-01 16:28 | XMS_ITS | Continuity of Care Document ---
Author Organization [facility] Address [address] [facility] [address] [place] [address] Phone Care Team Providers Care Head Boys Tennis Coach Name Role Phone Holland OD, Christian [...] Diagnoses Date Provider Providers Copied on Encounter [facility], [address] [place] [address] [address], [place], [place], [id number], tel:[phone] [facility] No Information Nov-0 6-200 9 Holland OD Christian. [address] , [address], [place], [address], [place]. tel:[phone] Referring Provider: Dale Stone MD Thor, [address] [place] [address], [address]. tel:[phone] [facility], [address] [place] [address] [address], [place], [place], [id number], tel:[phone] [facility] No Information Oct-0 2-200 8 Holland OD Christian. [address] , [address], [place], [address], [place]. tel:[phone] Referring Provider: Dale Stone MD Thor, [address] [place] [address], [address]. tel:[phone] [facility], [address], [place], [place], [id number], [place] tel:[phone] [facility] No Information Mar-3 0-200 7 [facility] . [address], [address], [place], [place], [id number], [place]. tel:[phone] Consulting Provider: Melodie Tran, [address] [place] [address], [address]. tel:[phone] [facility], [address], [place], [place], [id number], [place] tel:[phone] [facility] No Information Aug-3 0-200 7 [facility] . [address], [address], [place], [place], [id number], [place]. tel:[phone] Referring Provider: Delvin Foster, [address] [place] [address], [address]. tel:[phone] lting Provider: Melodie Tran, [address] [place] [address], [address]. tel:[phone] Family History Family Member Type Diagnosis Age At Onset No Information Payers Payer name Insurance type Covered democrat ID Authoriza tion(s) Medicare [facility] [id number] [facility] CI [id number] Social History Type Description Quantity Date Captured [...]
--- OUTSIDE RECORDS SUMMARY | 2024-10-01 16:29 | XMS_ITS | Clinical Summary ---
Author Organization [facility] Address [address] [place] [address] Care Team Providers Care Pipe Maker Name Role Phone Dale Stone MD Primary Care Provider [phone] Social History Tobacco Use Types Packs/Day Years [...] 1959 Zoster Vaccines (1 of 2) 1990 Annual Medicare Wellness Visit 2005 Pneumococcal Vaccine: 50+ Ye ars (1 of 1 - PCV) 2005 RSV Immunization or 60+ Years (1 - 1-dose 75+ series) 2015 COVID-19 Vaccine ( - 2023-2 5 season) 2024 Meningococcal B Vaccine Aged Out No l onger eligible based on patient's age to complete this topic Meningococcal Vaccine Aged Out No werner terry eligible based on patient's age to complete this topic RSV Immunizations Under 20 Months Aged Out No longer eligible based on patient's age to complete this topic Insurance [facility] MEDICARE Care Teams Pipe Maker Relationship Specialty Start Date End Date Dale Stone MD [address] [place] [address] PCP - General FAMILY PRACTICE 03/31/20
--- OUTSIDE RECORDS SUMMARY | 2024-10-01 16:29 | XMS_ITS | Clinical Summary ---
Author Organization [facility] Olga Gleason Address [address] [place] [address] Care Team Providers Care Clinical Operations Leader Name Role Phone Meliton Washburn MD Primary Care Provider [phone] Allergies Active Allergy Reactions Criticality Noted Date Comments Adhesive Tape-Silicones Rash Low 01/19/2024 Sulfa (Sulfonamide Antibiotics) Nausea and Vomiting Low 09/21/2021 Medications amLODIPine-ator vastatin 5-10 mg tablet Take 1 Tablet by mouth daily. Active atorvastatin (LIPITOR) 10 mg tablet Take 10 mg by mouth daily. Active cetirizine (ZyrTEC) 10 mg tablet Take 10 mg by mouth daily. Active IRON, CARBONYL ORAL Take 65 mg by mouth. Active fluticasone propionate (FLONASE) 50 mcg/spray [place], Suspension nasal inhaler Administer 2 Sprays in each nostril daily. Active metFORMIN (GLUCOPHAGE) 500 mg tablet Take 500 mg by mouth 2 times daily with meals. Active omeprazole (PriLOSEC) 20 mg Capsule, Delayed Release(E.C.) Take 20 mg by mouth daily. Active finasteride (PROSCAR) 5 mg tablet Take 5 mg by mouth daily. 2 Active ALPRAZolam (XANAX) 0.25 mg tablet Take 0.25 mg by mouth 3 times daily as needed for Anxiety. 4 Active amLODIPine-debra zepril (LOTREL) 10-20 mg capsule Take 1 Capsule by mouth daily. 4 Active Sodium Chloride 1,000 mg Tablet, Soluble Take 1 Gram by mouth 3 times daily with meals. 4 05/29/20 25 Active Active Problems Problem Noted Date Diagnosed Date Chronic anemia 03/30/2022 Encounters Date Type Department Care Team Description 09/05/2024 External Device Data STL ABSTRACTION Provider, Abstract 08/25/2024 External Device Data STL ABSTRACTION Provider, Abstract 08/24/2024 External Device Data STL ABSTRACTION Provider, Abstract 08/07/2024 External Device Data STL ABSTRACTION Provider, Abstract 07/11/2024 External Device Data STL ABSTRACTION Provider, Abstract 07/10/2024 External Device Data STL ABSTRACTION Provider, Abstract from Last 3 Months Social History Tobacco Use Types Packs/Day Years Used Date Smoking Tobacco: Never Smokeless Tobacco: Never Tobacco Cessation:Counseling Given: Not Answered Alcohol Use Standard Drinks/Week Comments Never 0 (1 standard drink = 0.6 oz pur e alcohol) Sex and Gender Information Value Date Recorded Sex Assigned at Not on file Legal Sex Male 11:50 AM CDT Gender Identity Not on file Sexual Orientation Not on file Last Filed Vital Signs Vital Sign Reading Time Taken Comments Blood Pressure 131/68 05/07/2024 3:[address] PRODUCTION GENERAL MANAGER Pulse 69 05/07/2024 3:[address] PRODUCTION GENERAL MANAGER Temperature 36.6 C (97.8 F) 05/07/2024 3:[address] PRODUCTION GENERAL MANAGER Respiratory Rate 15 05/07/2024 3:[address] PRODUCTION GENERAL MANAGER Oxygen Saturation 96% 05/07/2024 3:[address] PRODUCTION GENERAL MANAGER Inhaled Oxygen Concentration - - Weight 83.3 kg (183 lb 9.6 oz) 05/07/2024 3:[address] PRODUCTION GENERAL MANAGER Height 182.9 cm (6') 03/30/2022 2:41 PM CDT Body Mass Index 24.9 03/30/2022 2:41 PM CDT Plan of Treatment Upcoming Encounters Date Type Department Care Team (Late st Contact Info) Description 11/05/2024 1:00 PM CDT Office Visit [facility] Oncology and Hematology - E[address] [place] [address] Av Melendez MD [address] [facility] [address] [place] [address] Health Maintenance Due Date Last Done Comments DIABETES ANNUAL FOOT EXAM 1958 DIABETES ANNUAL RETINAL EXAM 1958 DIABETES MICROALBUMIN ANNUAL SCREEN 1958 LDL CHOLESTEROL ANNUAL 1958 DTAP/TDAP/TD VACCINES (1 - Tdap) 1959 PNEUMOCOCCAL VACCINE 50+ YEA RS (1 of 2 - PCV) 1959 ZOSTER VACCINE (1 of 2) 1990 RSV VACCINE (60+ or ) (1 - 1-dose 75+ series) 2015 INFLUENZA VACCINE (#1) 2024 DIABETES HBA1C Q 6 MONTHS 04/25/20242023, 07/28/2023, 07/22/2023, Additional history exists Insurance [facility] MEDICARE PART A AND B Care Teams Clinical Operations Leader Relationship Specialty Start Date End Date Meliton Washburn MD PCP - General Family Practice 03/30/22
--- OUTSIDE RECORDS SUMMARY | 2024-10-01 16:29 | XMS_ITS | Referral Summary ---
Author Organization [facility] [address] Address [address] [place] [address] Care Team Providers Care Cutter Inspector Name Role Phone Meliton Washburn MD Primary Care Provider [phone] Encounters Date Type Department Care Team Description 08/22/2024 2:30 PM OPEN SHANK COVERER Office Visit [facility] Nephrology at [address] [place] [phone] Sourav Park MD Hyponatremia (Primary Dx); Essential hypertension from Last 3 Months Allergies Active Allergy [...] Tobacco: Never Tobacco Cessation:Counseling Given: Not Answered [facility] Utilities Answer Date Recorded In the past 12 months has [employer], [employer], oil, or water [employer] threatened to shut off services in your [...] on file Legal Sex Male 3:39 PM OPEN SHANK COVERER Gender Identity Not on file Sexual Orientation Not on file Last Filed Vital Signs Vital Sign Reading Time Taken Comments Blood Pressure 137/81 08/22/2024 2:23 PM OPEN SHANK COVERER Pulse 61 08/22/2024 2:23 PM OPEN SHANK COVERER Temperature 37 C (98.6 F) 08/22/2024 2:23 PM OPEN SHANK COVERER Respiratory Rate 18 10/27/2023 12:40 PM CDT Oxygen Saturation 99% 04/09/2024 10:06 AM CDT Inhaled Oxygen Concentration - - Weight 88.9 kg (196 lb) 08/22/2024 2:23 PM OPEN SHANK COVERER Height 182.9 cm (6') 08/22/2024 2:23 PM OPEN SHANK COVERER Body Mass Index 26.58 08/22/2024 2:23 PM OPEN SHANK COVERER Plan of Treatment Not on file Procedures [...] was last reviewed 2021. Testing performed by: [address] [address] Blood 10/27/2023 8:55 AM CDT 10/27/2023 9:00 AM CDT us Ingrid Cheek MD LAB BLOOD ORDERABLES Final Resul t Performing Organization Address [facility] de Phone Number [address] [address] * (ABNORMAL) Hemoglobin A1c (10/24/2023 7:46 AM CDT) Hgb A1C 6.9(H) 4.0 - 5.6 % Comment:Testing performed by : [address] [address] Estimated Average Glucose 151 mg/dL [facility] Comment: The ADA recommends reporting an estimated Average Glucose (eAG) with all Hemoglobin A1c results using the equation derived from a study of 507 normal and diabetic adults. Minority populations were underrepresented and children were not included. (Diabetes Care 31:9142-7241, 2008). The eAG is not equivalent to a fasting glucose. Testing performed by: [address] [address] Blood 10/24/2023 7:46 AM CDT 10/24/2023 9:33 AM CDT us Jaren Goyal MD LAB BLOOD ORDERABLES Final Result Performing Organization Address City/[facility] Co de Phone Number [address] [address] * Lipid panel (10/24/2023 7:46 AM CDT) [...] last revised on 2018. Testing performed by: [address] [address] Triglycerides 79 <=149 mg/dL [facility] Comment: Interpretive [...] last revised on 2018. Testing performed by: [address] [address] HDL 45 >=40 mg/dL [facility] Comment: Interpretive [...] last revised on 2018. Testing performed by: [address] [address] LDL, calculated 40 <=129 mg/dL [facility] Comment: [...] last revised on 2018. Testing performed by: [address] [address] Non-HDL Cholesterol 56 mg/dL [facility] Comment: Interpretive [...] last revised on 2018. Testing performed by: [address] [address] Chol/HDL ratio 2 [facility] Comment:Testing performed by : [address] [address] Blood 10/24/2023 7:46 AM CDT 10/24/2023 9:33 AM CDT us Jaren Goyal MD LAB BLOOD ORDERABLES Final Result Performing Organization Address City/State/[facility] Co de Phone Number [facility] [address] [facility] Department [place] [address] from Last 3 Months or Most Recently Relevant to Health Maintenance Insurance MEDICARE [facility] [id number] [place] [address] MEDICARE MEDICARE [facility] [place] Advance Directives For more information, please contact: [phone] * Full Code (Latest Code Status on File) Date Activated Date Inactivated Comments 10/23/2023 9:44 PM 10/27/2023 6:43 PM Care Teams Cutter Inspector Relationship Specialty Start Date End Date Meliton Washburn MD PCP - General Family Medicine 04/01/22
--- OUTSIDE RECORDS SUMMARY | 2024-10-01 17:17 | XMS_ITS | Referral Summary ---
Author Organization [facility] [address] Address [address] [place] [address] Care Team Providers Care Automation Controls Expert Name Role Phone Meliton Washburn MD Primary Care Provider [phone] Encounters Date Type Department Care Team Description 08/22/2024 2:30 PM CONSUMER ATTORNEY Office Visit [facility] Nephrology at [address] [place] [phone] Sourav Park MD Hyponatremia (Primary Dx); [...] Tobacco: Never Tobacco Cessation:Counseling Given: Not Answered [facility] Utilities Answer Date Recorded In the past 12 months has [employer], [employer], oil, or water [address] threatened to shut off services in your [...] often do you attend chur ch or sikhism services? Never 10/24/2023 Do you belong to any clubs o r organizations such as yarsani groups, unions, fraternal or athletic groups, or [...] place to sleep or slept in a fci (including now)? No 10/24/2023 Personal Safety Answer Date Recorded Have you ever been in or are you currently in a harmful physical or emotional relationship or is someone making you feel afraid or unsafe? 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 Sex Male 3:39 PM CONSUMER ATTORNEY Gender Identity Not on file Sexual Orientation Not on file Last Filed Vital Signs Vital Sign Reading Time Taken Comments Blood Pressure 137/81 08/22/2024 2:23 PM CONSUMER ATTORNEY Pulse 61 08/22/2024 2:23 PM CONSUMER ATTORNEY Temperature 37 C (98.6 F) 08/22/2024 2:23 PM CONSUMER ATTORNEY Respiratory Rate 18 10/27/2023 12:40 PM CDT Oxygen Saturation 99% 04/09/2024 10:06 AM CDT Inhaled Oxygen Concentration - - Weight 88.9 kg (196 lb) 08/22/2024 2:23 PM CONSUMER ATTORNEY Height 182.9 cm (6') 08/22/2024 2:23 PM CONSUMER ATTORNEY Body Mass Index 26.58 08/22/2024 2:23 PM CONSUMER ATTORNEY Plan of Treatment Not on file Procedures [...] was last reviewed 2021. Testing performed by: [address] [address] Blood 10/27/2023 8:55 AM CDT 10/27/2023 9:00 AM CDT us Ingrid Cheek MD LAB BLOOD ORDERABLES Final Resul t Performing Organization Address [facility] de Phone Number [address] [address] * (ABNORMAL) Hemoglobin A1c (10/24/2023 7:46 AM CDT) Hgb A1C 6.9(H) 4.0 - 5.6 % Comment:Testing performed by : [address] [address] Estimated Average Glucose 151 mg/dL [facility] Comment: The ADA recommends reporting an estimated Average Glucose (eAG) with all Hemoglobin A1c results using the equation derived from a study of 507 normal and diabetic adults. Minority populations were underrepresented and children were not included. (Diabetes Care 31:4159-1813, 2008). The eAG is not equivalent to a fasting glucose. Testing performed by: [address] [address] Blood 10/24/2023 7:46 AM CDT 10/24/2023 9:33 AM CDT us Jaren Goyal MD LAB BLOOD ORDERABLES Final Result Performing Organization Address City/[facility] Co de Phone Number [address] [address] * Lipid panel (10/24/2023 7:46 AM CDT) [...] last revised on 2018. Testing performed by: [address] [address] Triglycerides 79 <=149 mg/dL [facility] Comment: Interpretive [...] last revised on 2018. Testing performed by: [address] [address] HDL 45 >=40 mg/dL [facility] Comment: Interpretive [...] last revised on 2018. Testing performed by: [address] [address] LDL, calculated 40 <=129 mg/dL [facility] Comment: [...] last revised on 2018. Testing performed by: [address] [address] Non-HDL Cholesterol 56 mg/dL [facility] Comment: Interpretive [...] last revised on 2018. Testing performed by: [address] [address] Chol/HDL ratio 2 [facility] Comment:Testing performed by : [address] [address] Blood 10/24/2023 7:46 AM CDT 10/24/2023 9:33 AM CDT us Jaren Goyal MD LAB BLOOD ORDERABLES Final Result Performing Organization Address City/State/[facility] Co de Phone Number [facility] [address] [facility] [place] [address] from Last 3 Months or Most Recently Relevant to Health Maintenance Insurance MEDICARE [facility] [id number] [place] [address] MEDICARE MEDICARE [facility] [place] Advance Directives For more information, please contact: [phone] * Full Code (Latest Code Status on File) Date Activated Date Inactivated Comments 10/23/2023 9:44 PM 10/27/2023 6:43 PM Care Teams Automation Controls Expert Relationship Specialty Start Date End Date Meliton Washburn MD PCP - General Family Medicine 04/01/22
--- OUTSIDE RECORDS SUMMARY | 2024-10-01 17:17 | XMS_ITS | Continuity of Care Document ---
Author Organization [facility] Address [address] [facility] [address] [place] [address] Phone Care Team Providers Care Label Printer Name Role Phone Holland OD, Christian Unavailable [...] Diagnoses Date Provider Providers Copied on Encounter [facility], [address] [place] [address] [address], [place], [place], [id number], tel:[phone] [facility] No Information Nov-0 6-200 9 Holland OD Christian. [address] [facility] , [address], [place], [address], [place]. tel:[phone] Referring Provider: Dale Stone MD [facility], [address] [place] [address], [address]. tel:[phone] [facility], [address] [place] [address] [address], [place], [place], [id number], tel:[phone] [facility] No Information Oct-0 2-200 8 Holland OD Christian. [address] , [address], [place], [address], [place]. tel:[phone] Referring Provider: Dale Stone MD [facility], [address] [place] [address], [address]. tel:[phone] [facility], [address] [facility], [place], [place], [id number], [place] tel:[phone] [facility] No Information Mar-3 0-200 7 [facility] . [address] [facility], [address], [place], [place], [id number], [place]. tel:[phone] Consulting Provider: Melodie Tran, [address] [place] [address], [address]. tel:[phone] [facility], [address], [place], [place], [id number], [place] tel:[phone] [facility] No Information Aug-3 0-200 7 [facility] . [address] [facility], [address], [place], [place], [address], [place]. tel:[phone] Referring Provider: Delvin Foster, [address] [place] [address], [address]. tel:[phone] lting Provider: Melodie Tran, [address] [place] [address], [address]. tel:[phone] Family History Family Member Type Diagnosis Age At Onset No Information Payers Payer name Insurance type Covered democrat ID Authoriza tion(s) Medicare [facility] [id number] [facility] CI [id number] Social History Type Description Quantity Date Captured [...]
--- OUTSIDE RECORDS SUMMARY | 2024-10-01 17:17 | XMS_ITS | Clinical Summary ---
Author Organization [facility] [address] Address [address] [place] [address] Care Team Providers Care Umbrella Cutter Name Role Phone Meliton Washburn MD Primary Care Provider [phone] Allergies Active Allergy Reactions Criticality Noted Date [...] Department Care Team Description 08/22/2024 2:30 PM RN CLINICAL APPEALS Office Visit [facility] Nephrology at [address] [place] [phone] Sourav Park MD Hyponatremia (Primary Dx); [...] Tobacco: Never Tobacco Cessation:Counseling Given: Not Answered [facility] Utilities Answer Date Recorded In the past 12 months has [employer], gas, oil, or water company threatened to [...] often do you attend chur ch or zoroastrian services? Never 10/24/2023 Do you belong to [...] on file Legal Sex Male 3:39 PM RN CLINICAL APPEALS Gender Identity Not on file Sexual Orientation Not on file Obstetrics History Last Filed Vital Signs Vital Sign Reading Time Taken Comments Blood Pressure 137/81 08/22/2024 2:23 PM RN CLINICAL APPEALS Pulse 61 08/22/2024 2:23 PM RN CLINICAL APPEALS Temperature 37 C (98.6 F) 08/22/2024 2:23 PM RN CLINICAL APPEALS Respiratory Rate 18 10/27/2023 12:40 PM CDT Oxygen Saturation 99% 04/09/2024 10:06 AM CDT Inhaled Oxygen Concentration - - Weight 88.9 kg (196 lb) 08/22/2024 2:23 PM RN CLINICAL APPEALS Height 182.9 cm (6') 08/22/2024 2:23 PM RN CLINICAL APPEALS Body Mass Index 26.58 08/22/2024 2:23 PM RN CLINICAL APPEALS Plan of Treatment Health Maintenance Due Date [...] was last reviewed 2021. Testing performed by: [facility], [address] [place] [address]., [address] Blood 10/27/2023 8:55 AM CDT 10/27/2023 9:00 AM CDT us Ingrid Cheek MD LAB BLOOD ORDERABLES Final Resul t [facility] [address] [facility] [place] [address] * (ABNORMAL) Hemoglobin A1c (10/24/2023 7:46 AM CDT) Hgb A1C 6.9(H) 4.0 - 5.6 % Comment:Testing performed by : [address] [address] Estimated Average Glucose 151 mg/dL [facility] Comment: The ADA recommends reporting an estimated Average Glucose (eAG) with all Hemoglobin A1c results using the equation derived from a study of 507 normal and diabetic adults. Minority populations were underrepresented and children were not included. (Diabetes Care 31:6311-5791, 2008). The eAG is not equivalent to a fasting glucose. Testing performed by: [address] [address] Blood 10/24/2023 7:46 AM CDT 10/24/2023 9:33 AM CDT us Jaren Goyal MD LAB BLOOD ORDERABLES Final Result [facility] [address] [facility] [place] [address] * Lipid panel (10/24/2023 7:46 AM CDT) Pathologist [facility] Cholesterol 101 30 - 199 mg/dL Comment: [...] last revised on 2018. Testing performed by: [address] [address] Triglycerides 79 <=149 mg/dL [facility] Comment: [...] last revised on 2018. Testing performed by: [address] [address] HDL 45 >=40 mg/dL [facility] Comment: Interpretive [...] last revised on 2018. Testing performed by: [address] [address] LDL, calculated 40 <=129 mg/dL [facility] Comment: [...] last revised on 2018. Testing performed by: [address] [address] Non-HDL Cholesterol 56 mg/dL [facility] Comment: Interpretive [...] last revised on 2018. Testing performed by: [facility], [address] [place] [address]., [address] Chol/HDL ratio 2 [facility] Comment:Testing performed by : [facility], [address] [place] [address]., [address] Blood 10/24/2023 7:46 AM CDT 10/24/2023 9:33 AM CDT us Jaren Goyal MD LAB BLOOD ORDERABLES Final Result [facility] [address] [facility] Department [place] [address] from Last 3 Months or Most Recently Relevant to Health Maintenance Insurance MEDICARE [facility] MEDICARE MEDICARE [facility] Advance Directives For more information, please contact: [phone] * Full Code (Latest Code Status on File) Date Activated Date Inactivated Comments 10/23/2023 9:44 PM 10/27/2023 6:43 PM Care Teams Umbrella Cutter Relationship Specialty Start Date End Date Meliton Washburn MD PCP - General Family Medicine 04/01/22
--- OUTSIDE RECORDS SUMMARY | 2024-10-01 17:17 | XMS_ITS | Clinical Summary ---
Author Organization [facility] Olga Gleason Address [address] [place] [address] Care Team Providers Care Lock Corner Machine Operator Name Role Phone Meliton Washburn MD Primary Care Provider [phone] Allergies Active Allergy Reactions Criticality Noted Date [...] mouth. Active fluticasone propionate (FLONASE) 50 mcg/spray [place], Suspension nasal inhaler Administer 2 Sprays in [...] Comments Blood Pressure 131/68 05/07/2024 3:27 PM FINANCIAL ANALYST ACCOUNTANT Pulse 69 05/07/2024 3:24 PM FINANCIAL ANALYST ACCOUNTANT Temperature 36.6 C (97.8 F) 05/07/2024 3:24 PM FINANCIAL ANALYST ACCOUNTANT Respiratory Rate 15 05/07/2024 3:24 PM FINANCIAL ANALYST ACCOUNTANT Oxygen Saturation 96% 05/07/2024 3:24 PM FINANCIAL ANALYST ACCOUNTANT Inhaled Oxygen Concentration - - Weight 83.3 kg (183 lb 9.6 oz) 05/07/2024 3:24 P M FINANCIAL ANALYST ACCOUNTANT Height 182.9 cm (6') 03/30/2022 2:41 PM CDT Body Mass Index 24.9 03/30/2022 2:41 PM CDT Plan of Treatment Upcoming Encounters Date Type Department Care Team (Late st Contact Info) Description 11/05/2024 1:00 PM CDT Office Visit [facility] Oncology and Hematology - [address] [place] [address] Av Melendez MD [address] [facility] [address] [place] [address] Health Maintenance Due Date Last [...] 07/22/2023, Additional history exists Insurance [facility] MEDICARE PART A AND B Care Teams Lock Corner Machine Operator Relationship Specialty Start Date End Date Meliton Washburn MD PCP - General Family Practice 03/30/22
--- OUTSIDE RECORDS SUMMARY | 2024-10-01 17:17 | XMS_ITS | Clinical Summary ---
Author Organization [facility] Address [address] [place] [address] Care Team Providers Care Sign Erector Name Role Phone Dale Stone MD Primary Care Provider [phone] Social History Tobacco Use Types Packs/Day Years [...] patient's age to complete this topic Insurance [facility] MEDICARE Care Teams Sign Erector Relationship Specialty Start Date End Date Dale Stone MD [address] [place] [address] PCP - General FAMILY PRACTICE 03/31/20
[2024-10-01] MEDS: ASPIRIN 81 MG CHEWABLE TABLET 324 MG PO (19:28)
[2024-10-01 19:48] VITALS: BP 167/73; PULSE 67; RESP 18; O2SAT 98
--- NOTE | 2024-10-01 20:15 | PM.IMHP ---
H&P: HPI History of Present Illness Date/Time: 10/01/24 20:15 Chief Complaint: Difficulties speaking. Narrative: This is a pleasant 84-year-old male with history of transient ischemic attack, hypertension, hyperlipidemia, type 2 diabetes mellitus, benign prostatic hyperplasia, urinary retention, mild memory loss, and anemia who presented to the emergency department via private vehicle from home for evaluation of difficulty speaking. He was in his usual state of health when he got up this morning and spent the afternoon doing light yard work. Not long prior to arrival, his came outside to check on him and at that time he noticed that he was having difficulty speaking. He knew what he wanted to say but could not make out the words and instead his speech was garbled. This lasted for approximately 30 minutes before slowly resolving. He is now back to baseline. He did not have any other symptoms and denies headache, vertigo, visual changes, facial droop, difficulty swallowing, focal weakness, and paresthesias. He also denies recent cold and flu symptoms, chest pain, palpitations, shortness of breath, nausea, vomiting, and sweats. In the ED: Vital signs were stable on arrival. Labs are significant for WBC count of 5.6, hemoglobin 11.8, sodium 132, glucose 180. CTA of the head and neck showed no hemodynamically significant stenosis, aneurysm, or thrombosis. Age related changes were seen. He was given aspirin 324 mg and is being admitted in this setting for close monitoring and brain MRI tomorrow. Review of Systems Review of Systems: 12 systems were reviewed and are negative except for as per HPI. 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 Code status: Full code. Smoking packs per day: 1 Smoking cigarettes per day: 20.0 Years smoked: 14 Smoking pack-years: 14.00 Smoking status: Former smoker Tobacco type: cigarettes Alcohol intake: never Alcohol use details: FEW DRINKS/YEAR Substance use: never Substance use type: does not use Do You Feel Safe in your Home?: Yes Lack of Transportation: No Lack of Food: Never True Current Housing: I Have Housing Concerned About Future Housing: No Difficulty Paying Gas/Electric Bills: No Difficulty Paying for Meds: No Currently Unemployed: No Education: Trade/Vocational Certificate Difficulty w/ Childcare or Family Care: No Living arrangements: with family Occupation/Education: retired Spiritual care concerns: No Meds Home Medications and Allergies Home Medications ?Medication ?Instructions ?Recorded ?Confirmed ?Type cetirizine 10 mg tablet (Zyrtec) 10 mg PO DAILY 07/04/19 05/25/24 History multivitamin (Multiple Vitamins 1 tablet PO DAILY 02/29/20 05/25/24 History tablet) finasteride 5 mg tablet 5 mg PO DAILY 02/26/22 05/25/24 History mecobalamin (vitamin B12) 1,000 1,000 mcg PO HS 05/18/22 05/25/24 History mcg chewable tablet ascorbate calcium (vitamin C) 500 500 mg PO DAILY 04/15/23 05/25/24 History mg tablet ibuprofen 600 mg tablet 600 mg PO TID PRN Pain, Mild 10/15/23 05/25/24 History ferrous sulfate 325 mg (65 mg 325 mg PO DAILY 11/03/23 05/25/24 History iron) tablet polyethylene glycol 3350 17 17 g PO DAILY 11/03/23 05/25/24 History gram/dose oral powder (Miralax) atorvastatin 10 mg tablet 10 mg PO HS #90 tabs 01/04/24 05/25/24 Rx metformin 500 mg tablet 500 mg PO BID #180 tabs 04/10/24 05/25/24 Rx omeprazole 20 mg capsule,delayed 20 mg PO DAILY #90 caps 05/28/24 Rx release fluticasone propionate 50 1 spray intranasal BID #16 grams 07/02/24 Rx mcg/actuation nasal spray,suspension (Flonase Allergy Relief) amlodipine 10 mg-benazepril 20 mg 1 cap PO DAILY #90 caps 08/10/24 Rx capsule sodium chloride 1,000 mg soluble 1,000 mg PO TID 10/01/24 10/01/24 History tablet Allergies Allergy/AdvReac Type Severity Reaction Status Date / Time adhesive tape Allergy Mild Rash Verified 05/25/24 10:43 neomycin Allergy Mild Rash Verified 05/25/24 10:43 hydrochlorothiazide AdvReac Severe hyponatremi Verified 05/25/24 10:43 a Sulfa (Sulfonamide AdvReac Intermediate Nausea Verified 05/25/24 10:43 Antibiotics) Vital Signs Vital Signs - 24 hr 10/01/24 14:44 10/01/24 15:08 10/01/24 15:09 Temperature 97.7 F Pulse Rate 67 63 65 Respiratory Rate 16 16 17 Blood Pressure 139/60 138/68 138/68 Pulse Oximetry 99 97 98 Oxygen Delivery Room Air 10/01/24 19:48 Temperature Pulse Rate 67 Respiratory Rate 18 Blood Pressure 167/73 H Pulse Oximetry 98 Oxygen Delivery Exam Narrative: General: He nontoxic-appearing male sitting up in bed in no acute distress. Weight: 80.1 kg. BMI: 26.3. HEENT: Normocephalic, atraumatic. Wearing corrective lenses. PERRL, EOMI. Sclera anicteric. Oral mucosa moist. Neck: Supple. No carotid bruits. Respiratory: Lungs are clear to auscultation bilaterally. Cardiovascular: Regular rate and rhythm with S1-S2. Soft systolic murmur at the upper sternal border and apex. Gastrointestinal: Abdomen is soft, nontender, and nondistended with positive bowel sounds. Skin: Warm and dry. No rash or lesions on limited exam. Extremities: No cyanosis or clubbing. One to 2+ bilateral lower extremity edema. Radial and pedal pulses intact. Neurological: Alert and oriented x4. Cranial nerves 2-12 are grossly intact. Speech is clear. No facial asymmetry. No pronator drift. Normal [id number] and rapid alternating movements. Gait not assessed. Psychiatric: Pleasant and cooperative with appropriate mood and flat affect. H&P: Results Labs Labs: Short CBC 10/01/24 Range/Units 14:59 WBC 5.6 (4.5-10.0) K/mm3 Hgb 11.8 L (14.0-18.0) g/dL Hct 36.3 L (42.0-52.0) % Plt Count 248 (150-375) k/mm3 BMP 10/01/24 14:59 Sodium 132 L Potassium 3.9 Chloride 98 Carbon Dioxide 24 BUN 14 Creatinine 0.89 Glucose 180 H Calcium 8.3 L Cardiac Enzymes 10/01/24 Range/Units 14:59 Troponin I < 0.012 (0.000-0.034) ng/mL Liver Function 10/01/24 Range/Units 14:59 Total Bilirubin 0.5 (0.2-1.3) mg/dL AST 23 (17-59) U/L ALT 18 (6-50) U/L Alkaline Phosphatase 113 (38-126) U/L Albumin 4.2 (3.5-5.1) g/dL Imaging Chest X-Ray 10/01/24 16:37 Impression: 1: No acute cardiopulmonary disease. Head/Neck CTA 10/01/24 16:45 IMPRESSION: 1. 0% stenosis of the right carotid bulb relative to normal distal artery lumen diameter (NASCET criteria). 2. 10% stenosis of the left carotid bulb relative to normal distal artery lumen diameter. 3. Normal anatomic relation to the [place] as detailed above. No hemodynamically significant stenosis, aneurysm or thrombosis. 4. Age-related changes the brain including mild diffuse volume loss and moderate scattered white matter hypoattenuation consistent with chronic small vessel ischemic disease. 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 Labs, imaging, EKG, and all reports were personally reviewed. Suspect transient cerebral ischemia. CTA of the head and neck did not show any significant stenosis, thrombosis, or aneurysm. He has been started on aspirin 81 mg daily which he was not taking at home. Continue atorvastatin though would recommend a higher dose. Check fasting lipids in a.m.. Echocardiogram and brain MRI have been ordered for tomorrow. Blood pressures were reviewed and they are stable. He has bilateral lower extremity edema which he states is chronic but he may benefit from the addition of a diuretic. Check venous Doppler ultrasounds rule out DVT. His home medications will be reviewed and resumed as appropriate. Findings and treatment plan were discussed with the patient. Questions were solicited and answered to satisfaction. The patient's medical management will be taken over by the hospitalist team in a.m. Quality VTE Prophylaxis VTE prophylaxis: mechanical ordered The patient has been admitted under observation status. Hospitalist MIPS Advance Care Plan I have confirmed that the patient's Advanced Care Plan is present, code status is documented, or surrogate decision maker is listed in patient medical record.: Yes Medication Reconciliation I have utilized all available resources to obtain, update and review the patients current medications (includes all prescriptions, OTC, herbals, cannabis, and nutritional supplements).: Yes
[2024-10-01 21:17] VITALS: BMI 26.3
[2024-10-01 22:00] VITALS: BP 151/66; PULSE 75; RESP 18; TEMP 37; O2SAT 96
[2024-10-02] VITALS (10 sets, daily range): BP systolic 146–153; BP diastolic 63–68; PULSE 57–66; RESP 12–16; TEMP 36.6–37.1; O2SAT 97–99
[2024-10-02] MEDS: ATORVASTATIN 10 MG TABLET PO ×2 (00:19→22:30)
[2024-10-02] MEDS: CYANOCOBALAMIN 1,000 MCG TABLET 1000 MCG PO ×2 (00:19→22:30)
[2024-10-02 03:03] LABS: Add Urine Microscopic? YES; Appearance Urine Cloudy (Clear); Bacteria Urine 3+ /hpf; Bilirubin Urine Negative (Negative); Blood Urine Negative (Negative); Color Urine Yellow (Yellow); Glucose Urine UA Negative (Negative); Ketones Urine Negative (Negative); Leukocyte Esterase Ur 2+ LEU/UL (Negative); Nitrate Urine Positive (Negative); Non Pathogenic Casts 0-2; Protein Urine Trace mg/dL (Negative); RBC Urine 0-2 /hpf (0-2); Squamous Epithelial Cell Urine None Seen /hpf (Few); WBC Urine 51-100 /hpf (0-3); pH Urine 7.5 (5.0-9.0)
[2024-10-02 05:53] LABS: Anion Gap 8 mmol/L (4-12); Blood Urea Nitrogen 14 mg/dL (9-20); Calcium 8.5 mg/dL (8.4-10.2); Carbon Dioxide 27 mmol/L (22-30); Chloride 100 mmol/L (98-107); Cholesterol 100 mg/dL (0-200); Estimated CRCL calculation 67 ml/min; Estimated Glomerular Filt Rate > 60; Glucose 114 mg/dL (65-110); HDL Direct 33 mg/dL; Potassium 4.1 mmol/L (3.4-5.0); Sodium 135 mmol/L (137-145); Triglycerides 70 mg/dL (<150)
[2024-10-02 06:04] LABS: LDL Cholesterol Direct 52 mg/dL
--- NOTE | 2024-10-02 07:32 | PM.IMPN ---
Progress Note: A&P Assessment and Plan (1) DVT (deep venous thrombosis): Code(s): I82.409 - Acute embolism and thrombosis of unspecified deep veins of unspecified lower extremity Status: Acute Assessment and Plan: - Troponins <0.012 Imaging: - EKG: Sinus rhythm, incomplete RBBB - CXR: No acute cardiopulmonary disease. - Venous doppler: Deep venous thrombosis within the bilateral gastrocnemius veins and the right posterior tibial veins - Chest CTA pending - Echo pending - Head/Neck CTA: 0% stenosis of the right carotid bulb relative to normal distal artery lumen diameter, 10% stenosis of the left carotid bulb relative to normal distal artery lumen diameter. Normal anatomic relation to the [place] as detailed above. No hemodynamically significant stenosis, aneurysm or thrombosis. - Anticoagulation: Started on Apixiban 10mg, continue Aspirin 81mg - Continue Atorvastatin (2) Transient speech disturbance: Code(s): R47.9 - Unspecified speech disturbances Status: Acute Assessment and Plan: - Brain MRI: No acute intracranial process or abnormally enhancing brain lesions. Mild interval progression in still moderate scattered nonspecific periventricular predominant white matter T2 hyperintensity which is within normal limits for age. Unchanged small focus of susceptibility artifact in the right temporal occipital region - Head/Neck CTA: 0% stenosis of the right carotid bulb, 10% stenosis of the left carotid bulb, Normal anatomic relation to the [place] - Neurology consulted, pending - PT/OT eval pending (3) Hypertension: Qualifiers: Hypertension type: primary hypertension Qualified Code(s): I10 - Essential (primary) hypertension Code(s): I10 - Essential (primary) hypertension Status: Chronic Assessment and Plan: Chronic Blood pressure remains well controlled. Amlodipine 10mg, Lisinopril 20mg (4) Diastolic heart failure: Onset Date: ~08/05/21 Code(s): I50.30 - Unspecified diastolic (congestive) heart failure Status: Acute Assessment and Plan: - Previous Echo on 07/22/2023: Mild LVH w/ normal systolic function and grade 1 diastolic noncompliance, mild LAE, Sclerotic aortic valve w/ well maintained leaflet excursion - Stable (5) Type 2 diabetes mellitus: Qualifiers: Diabetes mellitus complication status: without complication Diabetes mellitus assisted insulin use: without assisted use Qualified Code(s): E11.9 - Type 2 diabetes mellitus without complications Code(s): E11.9 - Type 2 diabetes mellitus without complications Status: Chronic Assessment and Plan: - hypoglycemia protocol - POC blood glucose ACHS - Metformin 500mg - correct regimen ordered - low dose TIDWM and HS - A1C 6.5% on 12/16/2023 Time Spent With Patient Time: Subjective Date/time seen: 10/02/24 07:32 Interval history: 84-year-old male with history of transient ischemic attack, hypertension, hyperlipidemia, type 2 diabetes mellitus, benign prostatic hyperplasia, urinary retention, mild memory loss, and anemia who presented to the emergency department via private vehicle from home for evaluation of difficulty speaking. 10/02/2024 Patient is sitting comfortably in bed at time of exam. Denies any chest pain, n/v, sob, abdominal pain, dizziness, confusion or headaches. Neurological exam is benign. Neurology consult pending. Brain MRI negative for acute findings. Venous doppler found multiple DVTs in bilat LE, started on Eliquis 10mg, will maintain Aspirin and statin. Pt otherwise does not have any calf or lower ext tenderness, swelling or discoloration. PT/OT to eval. CTA Chest/Abd ordered. Review of Systems Review of Systems: 12 systems were reviewed and are negative except for as per HPI. Exam Narrative: General: He nontoxic-appearing male sitting up in bed in no acute distress. Weight: 80.1 kg. BMI: 26.3. HEENT: Normocephalic, atraumatic. Wearing corrective lenses. PERRL, EOMI. Sclera anicteric. Oral mucosa moist. Neck: Supple. No carotid bruits. Respiratory: Lungs are clear to auscultation bilaterally. Cardiovascular: Regular rate and rhythm with S1-S2. Soft systolic murmur at the upper sternal border and apex. Gastrointestinal: Abdomen is soft, nontender, and nondistended with positive bowel sounds. Skin: Warm and dry. No rash or lesions on limited exam. Extremities: No cyanosis or clubbing. One to 2+ bilateral lower extremity edema. Radial and pedal pulses intact. Neurological: Alert and oriented x4. Cranial nerves 2-12 are grossly intact. Speech is clear. No facial asymmetry. No pronator drift. Normal [id number] and rapid alternating movements. Gait not assessed. Psychiatric: Pleasant and cooperative with appropriate mood and flat affect. Objective Data Vital Signs Vital Signs: Vital Signs - 24 hr 10/01/24 14:44 10/01/24 15:08 10/01/24 15:09 Temperature 97.7 F Pulse Rate 67 63 65 Respiratory Rate 16 16 17 Blood Pressure 139/60 138/68 138/68 Pulse Oximetry 99 97 98 Oxygen Delivery Room Air 10/01/24 19:48 10/01/24 21:30 10/01/24 22:00 Temperature 98.6 F Pulse Rate 67 75 Respiratory Rate 18 18 Blood Pressure 167/73 H 151/66 H Pulse Oximetry 98 96 Oxygen Delivery Room Air 10/02/24 00:00 10/02/24 04:00 10/02/24 05:03 Temperature 98.7 F Pulse Rate 61 64 62 Respiratory Rate 16 Blood Pressure 153/63 H Pulse Oximetry 97 Oxygen Delivery Intake/Output Intake/Output: Intake & Output 09/29/24 09/30/24 10/01/24 10/02/24 23:59 23:59 23:59 23:59 Intake Total 327 Output Total 375 Balance -48 Meds/Results Medications: Active Medications Generic Name Dose Route Start Last Admin Trade Name Freq PRN Reason Stop Dose Admin Acetaminophen 650 mg 10/01/24 19:03 Acetaminophen 325 Mg Tablet PO Q4H PRN Mild Pain (1-3) or Fever Amlodipine Besylate 10 mg 10/02/24 09:00 Amlodipine Besylate 10 Mg Tablet BY MOUTH DAILY [facility] Ascorbic Acid 500 mg 10/02/24 09:00 Ascorbic Acid 500 Mg Tablet PO DAILY [facility] Aspirin 81 mg 10/02/24 08:00 Aspirin 81 Mg Chewable Tablet PO DAILY@0800 [facility] Atorvastatin Calcium 10 mg 10/01/24 23:00 10/02/24 00:19 Atorvastatin 10 Mg Tablet PO 10 mg HS PETER Administration Cyanocobalamin 1,000 mcg 10/01/24 23:00 10/02/24 00:19 Cyanocobalamin 1,000 Mcg Tablet PO 1,000 mcg HS PETER Administration Dextrose 12.5 gm 10/01/24 22:06 Dextrose 50% 25 Gm/50 Ml Syringe IV PUSH PRN PRN Hypoglycemia Protocol Ferrous Sulfate 325 mg 10/02/24 09:00 Ferrous Sulfate [address] BY MOUTH DAILY [facility] Finasteride 5 mg 10/02/24 09:00 Finasteride 5 Mg Tablet PO DAILY [facility] Fluticasone Propionate 1 spray 10/02/24 09:00 Fluticasone Propionate 0.05% Na Spr 16 Gm Btl (*Bkc) NASAL BID PETER Glucagon 1 mg 10/01/24 22:06 Glucagon For Inj 1 Mg Vial IM PRN PRN Hypoglycemia Protocol Glucose 15 gm 10/01/24 22:06 Glucose Oral Gel 15 Gm Of Glucse In 37.5 Gm Tube PO PRN PRN Hypoglycemia Protocol Dextrose 1,000 mls @ 100 mls/hr 10/01/24 22:06 Dextrose 5% 1,000 Ml IVPB PRN PRN Hypoglycemia Protocol Insulin Aspart 2 - 5 units 10/02/24 08:00 Insulin Aspart (*Bkc) 100 Units/Ml SUB-Q TIDWM PETER Protocol Insulin Aspart 1 - 2 units 10/01/24 22:10 10/02/24 00:00 Insulin Aspart (*Bkc) 100 Units/Ml SUB-Q Not Given HS [facility] Protocol Lisinopril 20 mg 10/02/24 09:00 Lisinopril 20 Mg Tablet PO QAM [facility] Loratadine 10 mg 10/02/24 09:00 Loratadine 10 Mg Tablet PO QAM [facility] Multivitamins Therapeutic 1 tablet 10/02/24 09:00 Multivitamins Therapeutic Tab (*Bkc) PO DAILY [facility] Pantoprazole Sodium 40 mg 10/02/24 09:00 Pantoprazole 40 Mg Tablet PO QAM [facility] Perflutren Lipid Microsphere 0 ml 10/01/24 22:06 Perflutren Lipid Microspheres 1.5 Ml Vial Diluted To 10 Ml Total Volume IV PUSH 10/04/24 22:07 ONCE PRN adequate visualization Protocol Polyethylene Glycol 17 gm 10/02/24 09:00 Polyethylene Glycol 3350 17 Gm Powd.Pack PO DAILY [facility] Sodium Chloride 1 gm 10/02/24 09:00 Sodium Chloride 1 Gm Tablet PO TID [facility] Radiology Results: ITS Impressions Chest X-Ray 10/01/24 16:37 Impression: 1: No acute cardiopulmonary disease. Head/Neck CTA 10/01/24 16:45 IMPRESSION: 1. 0% stenosis of the right carotid bulb relative to normal distal artery lumen diameter (NASCET criteria). 2. 10% stenosis of the left carotid bulb relative to normal distal artery lumen diameter. 3. Normal anatomic relation to the [place] as detailed above. No hemodynamically significant stenosis, aneurysm or thrombosis. 4. Age-related changes the brain including mild diffuse volume loss and moderate scattered white matter hypoattenuation consistent with chronic small vessel ischemic disease. Labs Labs: Laboratory Results - last 24 hr 10/01/24 10/01/24 10/01/24 14:44 14:59 22:43 WBC 5.6 RBC 4.13 L Hgb 11.8 L Hct 36.3 L MCV 87.9 MCH 28.6 MCHC 32.5 RDW 12.5 Plt Count 248 MPV 9.7 Immature Gran % (Auto) 0.4 Neut % (Auto) 75.6 H Lymph % (Auto) 15.6 L [place] % (Auto) 7.0 Eos % (Auto) 0.7 Baso % (Auto) 0.7 Lymph # (Auto) 0.87 L [place] # (Auto) 0.4 Eos # (Auto) 0.0 Baso # (Auto) 0.0 Abs Immat Gran (auto) 0.02 Absolute Neuts (auto) 4.2 Absolute Nucleated RBC 0.000 Nucleated RBC % 0.0 PT 13.3 INR 1.0 APTT 26.9 Sodium 132 L Potassium 3.9 Chloride 98 Carbon Dioxide 24 Anion Gap 10 BUN 14 Creatinine 0.89 Estim Creat Clear Calc 59 Estimated GFR > 60 Glucose 180 H POC Capillary Glucose 193 H Calcium 8.3 L Magnesium Total Bilirubin 0.5 AST 23 ALT 18 Alkaline Phosphatase 113 Troponin I < 0.012 Total Protein 7.0 Albumin 4.2 Triglycerides Cholesterol LDL Cholesterol Direct HDL Direct TSH (Reflex) Urine Color Yellow Urine Appearance Cloudy H Urine pH 7.5 Ur Specific [place] 1.030 Urine Protein Trace Urine Glucose (UA) Negative Urine Ketones Negative Ur Blood (Man) Negative Urine Nitrate Positive H Urine Bilirubin Negative Urine Urobilinogen 2.0 H Leukocyte Esterase Rfl 2+ H Urine RBC 0-2 Urine WBC 51-100 H Ur Squamous Epith Cells None seen Urine Bacteria 3+ H Urine Casts 0-2 10/02/24 10/02/24 05:09 05:10 WBC RBC Hgb Hct MCV MCH MCHC RDW Plt Count MPV Immature Gran % (Auto) Neut % (Auto) Lymph % (Auto) [place] % (Auto) Eos % (Auto) Baso % (Auto) Lymph # (Auto) [place] # (Auto) Eos # (Auto) Baso # (Auto) Abs Immat Gran (auto) Absolute Neuts (auto) Absolute Nucleated RBC Nucleated RBC % PT INR APTT Sodium 135 L Potassium 4.1 Chloride 100 Carbon Dioxide 27 Anion Gap 8 BUN 14 Creatinine 0.78 Estim Creat Clear Calc 67 Estimated GFR > 60 Glucose 114 H POC Capillary Glucose Calcium 8.5 Magnesium 2.0 Total Bilirubin AST ALT Alkaline Phosphatase Troponin I Total Protein Albumin Triglycerides 70 Cholesterol 100 LDL Cholesterol Direct 52 HDL Direct 33 TSH (Reflex) 2.240 Urine Color Urine Appearance Urine pH Ur Specific Mercedes Urine Protein Urine Glucose (UA) Urine Ketones Ur Blood (Man) Urine Nitrate Urine Bilirubin Urine Urobilinogen Leukocyte Esterase Rfl Urine RBC Urine WBC Ur Squamous Epith Cells Urine Bacteria Urine Casts Quality VTE Prophylaxis VTE prophylaxis: mechanical ordered
[2024-10-02 07:54] LABS: Glucose Point of Care 123 mg/dl (65-105)
[2024-10-02] MEDS: polyethylene glycoL 3350 17 GM POWD.PACK PO (08:11)
[2024-10-02] MEDS: ASPIRIN 81 MG CHEWABLE TABLET PO (08:11)
[2024-10-02] MEDS: amLODIPine BESYLATE 10 MG TABLET BY MOUTH (08:11)
[2024-10-02] MEDS: LORATADINE 10 MG TABLET PO (08:12)
[2024-10-02] MEDS: lisinopriL 20 MG TABLET PO (08:12)
[2024-10-02] MEDS: MULTIVITAMINS THERAPEUTIC TAB (*BKC) 1 TABLET PO (08:12)
[2024-10-02] MEDS: SODIUM CHLORIDE 1 GM TABLET PO ×3 (08:12→16:12)
[2024-10-02] MEDS: ASCORBIC ACID 500 MG TABLET PO (08:12)
[2024-10-02] MEDS: PANTOPRAZOLE 40 MG TABLET PO (08:12)
[2024-10-02] MEDS: FERROUS SULFATE 325 MG TABLET DR BY MOUTH (08:12)
[2024-10-02] MEDS: FLUTICASONE PROPIONATE 0.05% NA SPR 16 GM BTL (*BKC) 1 SPRAY NASAL ×2 (08:13→16:12)
[2024-10-02 11:13] LABS: Glucose Point of Care 150 mg/dl (65-105)
--- NOTE | 2024-10-02 16:00 | PCPTNOTE ---
Spoke with current hospitalist, KASI to remove bedrest orders to participate in therapy.
[2024-10-02 16:05] LABS: Glucose Point of Care 181 mg/dl (65-105)
--- NOTE | 2024-10-02 22:07 | ECHO_ITS ---
Patient Info Name: Meliton Delacruz Age: 84 years : 1940 Gender: Male Ht: 72 in Wt: 194 lbs BSA: 2.13 m2 HR: 62 bpm BP: 153 / 63 mmHg Heart Rhythm: Sinus Rhythm Technical Quality: Fair Exam Date: 10/02/2024 1:51 PM Exam Location: Echo Lab Patient Status: Inpatient Admit Date: 10/01/2024 Staff Ordering Physician: Nat Wolff PA-C Sexual Abuse Counsellor: Rayna Damian RDCS Attending Provider: Rajan Martinez PA-C Referring Physician: Mariella AGUIRRE; Exam Type: CA echo doppler w bubble study Study Info Indications - TIA; DIASTOLIC DYSFUNCTION Complete two-dimensional, color flow and Doppler transthoracic echocardiogram is performed with agitated saline. Contrast/Agitated Saline Contrast/Ag. Saline: Agitated Saline Amount: 20.00 ml Existing IV Access: Yes IV Access Condition: patent with no signs of infiltration Summary 1. There is normal biventricular size and systolic function. 2. There is mild aortic stenosis. 3. Agitated saline study is negative for [id number] shunt. Left Ventricle The left ventricle is normal in size and systolic function. The left ventricular ejection fraction is visually estimated to be 60-65%. Right Ventricle The right ventricle is normal in size and systolic function. Left Atria The left atrium is normal size. Right Atria The right atrium is normal size. Atrial Septum Agitated saline study is negative for [id number] shunt. Aortic Valve The aortic valve is trileaflet and calcified. There is mild aortic stenosis. There is trace aortic regurgitation. Pulmonic Valve The pulmonic valve is not well visualized. There is trace pulmonic valve regurgitation. Mitral Valve The mitral valve opens well. There is trace mitral regurgitation. Tricuspid Valve The tricuspid valve is normal. There is trace tricuspid regurgitation. Left Ventricular Outflow Tract Name Value Normal LVOT 2D LVOT Diameter 2.1 cm LVOT Doppler LVOT Peak Gradient 4 mmHg LVOT Mean Gradient 2 mmHg LVOT VTI 23 cm LVOT VTI/AV VTI Ratio 0.5 LVOT Stroke Volume 82 ml LVOT CO 4.8 l/min LVOT CI 2.3 l/min/m2 Pulmonic Valve Name Value Normal RVOT Doppler RVOT Peak Gradient 3 mmHg PV Doppler PV Peak Gradient 4 mmHg Mitral Valve Name Value Normal MV Doppler MV Decel [place] 208 cm/s2 MV PHT 120 ms MV Area (PHT) 1.8 cm2 4.0-5.0 MV Diastolic Function MV E Peak Velocity 86 cm/s MV A Peak Velocity 129 cm/s MV E/A 0.7 MV Decel Time 414 ms MV Annular TDI MV E/e' (Septal) 22.7 <=8.0 MV E/e' (Lateral) 17.9 <=8.0 MV E/e' (Average) 20.3 Tricuspid Valve Name Value Normal TV Regurgitation Doppler TR Peak Velocity 231 cm/s TR Peak Gradient 19 mmHg Estimated PAP/RSVP RA Pressure 10 mmHg <=5 PA Systolic Pressure 31 mmHg <36 RV Systolic Pressure 31 mmHg <36 Aorta Name Value Normal Ascending Aorta Ao Root Diameter (MM) 3.8 cm Ao Root Diam Index (MM) 1.8 cm/m2 Aortic Valve Name Value Normal AV Doppler AV Peak Velocity 261 cm/s AV Peak Gradient 27 mmHg AV Mean Gradient 13 mmHg AV VTI 51 cm AV Area (Cont Eq VTI) 1.6 cm2 >=3.0 AV Area (Cont Eq Chuck) 1.4 cm2 AV Regurgitation 2D LVOT Area 3.5 cm2 AV Regurgitation Doppler AR Decel Time 2,321 ms AR Decel [place] 178 cm/s2 AR PHT 673 ms Ventricles Name Value Normal LV Dimensions 2D/MM IVS Diastolic Thickness (2D) 1.0 cm 0.6-1.0 LVID Diastole (2D) 5.1 cm 4.2-5.8 LVIW Diastolic Thickness (2D) 1.0 cm 0.6-1.0 LVID Systole (2D) 3.5 cm 2.5-4.0 LVOT Diameter 2.1 cm LV Mass (2D Cubed) 183.02 g 88.00-224.00 LV Mass Index (2D Cubed) 86 g/m2 49-115 Relative Wall Thickness (2D) 0.38 LV Fractional Shortening/Ejection Fraction 2D/MM LV Fractional Shortening (2D) 32 % 25-43 LV EF (2D Teicholz) 60 % 52-72 LV Diastolic Volume (4C MOD) 77 ml LV EF (4C MOD) 71 % LV Diastolic Volume (2C MOD) 65 ml LV EF (2C MOD) 80 % LV Diastolic Volume (BP MOD) 70 ml 62-150 LV Diastolic Volume Index (BP MOD) 33 ml/m2 34-74 LV Systolic Volume (BP MOD) 17 ml 21-61 LV Systolic Volume Index (BP MOD) 8 ml/m2 11-31 LV EF (BP MOD) 76 % 52-72 LV Diastolic Length (4C) 7.8 cm LV Systolic Length (4C) 6.1 cm LV Stroke Volume (4C MOD) 54 ml Atria Name Value Normal LA Dimensions LA Dimension (MM) 4.4 cm 3.0-4.1 LA Volume (4C A-L) 63 ml LA Volume (BP A-L) 64 ml RA Dimensions RA Area (4C) 12.6 cm2 <=18.0 Report Signatures
[2024-10-02] MEDS: FINASTERIDE 5 MG TABLET PO (22:30)
[2024-10-02] MEDS: APIXABAN 5 MG TABLET 10 MG PO (22:30)
[2024-10-02 22:37] LABS: Glucose Point of Care 161 mg/dl (65-105)
[2024-10-03] VITALS (7 sets, daily range): BP systolic 143–149; BP diastolic 59–61; PULSE 58–75; RESP 16; TEMP 36.7–37; O2SAT 95–100
[2024-10-03 08:00] LABS: Glucose Point of Care 150 mg/dl (65-105)
[2024-10-03 08:30] LABS: Basophils Percent Auto 0.5 % (0.2-1.2); Eosinophils Percent Auto 0.5 % (0-4.4); Hematocrit 41.3 % (42.0-52.0); Hemoglobin 13.5 g/dL (14.0-18.0); Immature Granulocyte Absolute 0.02 K/mm3 (0.00-0.031); Immature Granulocyte Percent A 0.3 % (0-0.5); Lymphocytes Absolute Auto 0.73 K/mm3 (0.9-3.2); Lymphocytes Percent Auto 9.9 % (18.3-44.2); Mean Corpuscular HGB Conc 32.7 g/dl (32-36); Mean Corpuscular Volume 88.6 fl (80-100); Mean Platelet Volume 9.1 fl (7.4-10.4); Monocytes Absolute Auto 0.4 K/mm3 (0.1-0.6); Monocytes Percent Auto 5.7 % (2.6-8.5); Neutrophils Absolute Auto 6.2 K/mm3 (1.3-6.7); Neutrophils Percent Auto 83.1 % (45.5-73.1); Platelet Count Result 259 k/mm3 (150-375); Red Blood Count 4.66 M/mm3 (4.6-6.20); Red Cell Distribution Width 12.5 % (11.5-14.5); White Blood Count 7.4 K/mm3 (4.5-10.0)
[2024-10-03 08:47] LABS: Alanine Aminotransferase 20 U/L (6-50); Albumin Level 4.4 g/dL (3.5-5.1); Alkaline Phosphatase 118 U/L (38-126); Anion Gap 9 mmol/L (4-12); Aspartate Amino Transferase 26 U/L (17-59); Bilirubin,Total 0.8 mg/dL (0.2-1.3); Blood Urea Nitrogen 13 mg/dL (9-20); Calcium 8.6 mg/dL (8.4-10.2); Carbon Dioxide 26 mmol/L (22-30); Chloride 96 mmol/L (98-107); Estimated CRCL calculation 60 ml/min; Estimated Glomerular Filt Rate > 60; Glucose 187 mg/dL (65-110); Potassium 4.4 mmol/L (3.4-5.0); Sodium 131 mmol/L (137-145)
[2024-10-03] MEDS: APIXABAN 5 MG TABLET 10 MG PO (09:27)
[2024-10-03] MEDS: ASPIRIN 81 MG CHEWABLE TABLET PO (09:27)
[2024-10-03] MEDS: MULTIVITAMINS THERAPEUTIC TAB (*BKC) 1 TABLET PO (09:27)
[2024-10-03] MEDS: FERROUS SULFATE 325 MG TABLET DR BY MOUTH (09:27)
[2024-10-03] MEDS: ASCORBIC ACID 500 MG TABLET PO (09:27)
[2024-10-03] MEDS: PANTOPRAZOLE 40 MG TABLET PO (09:28)
[2024-10-03] MEDS: SODIUM CHLORIDE 1 GM TABLET PO ×3 (09:28→17:09)
[2024-10-03] MEDS: lisinopriL 20 MG TABLET PO (09:28)
[2024-10-03] MEDS: amLODIPine BESYLATE 10 MG TABLET BY MOUTH (09:28)
[2024-10-03] MEDS: LORATADINE 10 MG TABLET PO (09:28)
[2024-10-03] MEDS: polyethylene glycoL 3350 17 GM POWD.PACK PO (09:29)
[2024-10-03] MEDS: FLUTICASONE PROPIONATE 0.05% NA SPR 16 GM BTL (*BKC) 1 SPRAY NASAL ×2 (09:29→17:09)
[2024-10-03 11:48] LABS: Glucose Point of Care 269 mg/dl (65-105)
[2024-10-03] MEDS: INSULIN ASPART (*BKC) 100 UNITS/ML SUB-Q (12:18)
--- NOTE | 2024-10-03 12:34 | P.PNIM_ITS ---
Progress Note: A&P Assessment and Plan (1) DVT (deep venous thrombosis): Code(s): I82.409 - Acute embolism and thrombosis of unspecified deep veins of unspecified lower extremity Status: Acute Assessment and Plan: - Troponins <0.012 Imaging: - EKG: Sinus rhythm, incomplete RBBB - CXR: No acute cardiopulmonary disease. - Venous doppler: Deep venous thrombosis within the bilateral gastrocnemius veins and the right posterior tibial veins - Chest CTA pending - Echo pending - Head/Neck CTA: 0% stenosis of the right carotid bulb relative to normal distal artery lumen diameter, 10% stenosis of the left carotid bulb relative to normal distal artery lumen diameter. Normal anatomic relation to the [place] as detailed above. No hemodynamically significant stenosis, aneurysm or thrombosis. - Anticoagulation: Started on Apixiban 10mg, continue Aspirin 81mg - Continue Atorvastatin (2) Transient speech disturbance: Code(s): R47.9 - Unspecified speech disturbances Status: Acute Assessment and Plan: - Brain MRI: No acute intracranial process or abnormally enhancing brain lesions. Mild interval progression in still moderate scattered nonspecific periventricular predominant white matter T2 hyperintensity which is within normal limits for age. Unchanged small focus of susceptibility artifact in the right temporal occipital region - Head/Neck CTA: 0% stenosis of the right carotid bulb, 10% stenosis of the left carotid bulb, Normal anatomic relation to the [place] - Neurology consulted, pending - PT/OT eval pending (3) Hypertension: Qualifiers: Hypertension type: primary hypertension Qualified Code(s): I10 - Essential (primary) hypertension Code(s): I10 - Essential (primary) hypertension Status: Chronic Assessment and Plan: Chronic Blood pressure remains well controlled. 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 Exam Narrative: General: In no acute distress, well nourished Head: atraumatic, no encephalopathy Eyes: EOMI, PERRLA, sclera clear ENT: moist mucous membranes, nasal passages clear Neck: supple, no JVD, no adenopathy, trachea midline Cardiac: Normal S1 and S2. No murmur, gallops or friction rubs, peripheral pulses intact. Respiratory: Lungs clear to auscultation, no adventitious lung sounds Gastrointestinal: soft, non-distended, non-tender, normoactive bowel sounds. : voiding without difficulty. Extremities: moves all extremities well, no edema, good ROM, strength 5/5 Skin: clean, dry, intact. No wounds or lesions. Neuro: Alert and oriented x4, cranial nerves intact, no neuro deficits. Psych: normal mood, normal affect, interactive Objective Data Vital Signs Vital Signs: Vital Signs - 24 hr 10/02/24 14:00 10/02/24 16:04 10/02/24 20:00 Temperature 97.8 F Pulse Rate 66 63 58 L Respiratory Rate 12 Blood Pressure 146/67 H Pulse Oximetry 99 Oxygen Delivery 10/02/24 21:29 10/03/24 00:00 10/03/24 04:00 Temperature 98.8 F Pulse Rate 57 L 58 L 63 Respiratory Rate 16 Blood Pressure 153/68 H Pulse Oximetry 98 Oxygen Delivery 10/03/24 05:08 10/03/24 11:57 Temperature 98.6 F Pulse Rate 71 Respiratory Rate 16 Blood Pressure 149/59 H Pulse Oximetry 95 Oxygen Delivery Room Air Intake/Output Intake/Output: Intake & Output 09/30/24 10/01/24 10/02/24 10/03/24 23:59 23:59 23:59 23:59 Intake Total 1897 980 Output Total 1675 350 Balance 222 630 Meds/Results Medications: Active Medications Generic Name Dose Route Start Last Admin Trade Name Freq PRN Reason Stop Dose Admin Acetaminophen 650 mg 10/01/24 19:03 Acetaminophen 325 Mg Tablet PO Q4H PRN Mild Pain (1-3) or Fever Amlodipine Besylate 10 mg 10/02/24 09:00 10/03/24 09:28 Amlodipine Besylate 10 Mg Tablet BY MOUTH 10 mg DAILY PETER Administration Apixaban 10 mg 10/02/24 21:00 10/03/24 09:27 Apixaban 5 Mg Tablet PO 10/09/24 10:00 10 mg Q12HR PETER Administration Ascorbic Acid 500 mg 10/02/24 09:00 10/03/24 09:27 Ascorbic Acid 500 Mg Tablet PO 500 mg DAILY PETER Administration Aspirin 81 mg 10/02/24 08:00 10/03/24 09:27 Aspirin 81 Mg Chewable Tablet PO 81 mg DAILY@0800 PETER Administration Atorvastatin Calcium 10 mg 10/01/24 23:00 10/02/24 22:30 Atorvastatin 10 Mg Tablet PO 10 mg HS PETER Administration Cyanocobalamin 1,000 mcg 10/01/24 23:00 10/02/24 22:30 Cyanocobalamin 1,000 Mcg Tablet PO 1,000 mcg HS PETER Administration Dextrose 12.5 gm 10/01/24 22:06 Dextrose 50% 25 Gm/50 Ml Syringe IV PUSH PRN PRN Hypoglycemia Protocol Ferrous Sulfate 325 mg 10/02/24 09:00 10/03/24 09:27 Ferrous Sulfate [address] BY MOUTH 325 mg DAILY PETER Administration Finasteride 5 mg 10/02/24 21:00 10/02/24 22:30 Finasteride 5 Mg Tablet PO 5 mg HS PETER Administration Fluticasone Propionate 1 spray 10/02/24 09:00 10/03/24 09:29 Fluticasone Propionate 0.05% Na Spr 16 Gm Btl (*Bkc) NASAL 1 spray BID PETER Administration Glucagon 1 mg 10/01/24 22:06 Glucagon For Inj 1 Mg Vial IM PRN PRN Hypoglycemia Protocol Glucose 15 gm 10/01/24 22:06 Glucose Oral Gel 15 Gm Of Glucse In 37.5 Gm Tube PO PRN PRN Hypoglycemia Protocol Dextrose 1,000 mls @ 100 mls/hr 10/01/24 22:06 Dextrose 5% 1,000 Ml IVPB PRN PRN Hypoglycemia Protocol Insulin Aspart 2 - 5 units 10/02/24 08:00 10/03/24 12:18 Insulin Aspart (*Bkc) 100 Units/Ml SUB-Q 3 units TIDWM PETER Administration Protocol Insulin Aspart 1 - 2 units 10/01/24 22:10 10/02/24 22:31 Insulin Aspart (*Bkc) 100 Units/Ml SUB-Q Not Given HS PETER Protocol Lisinopril 20 mg 10/02/24 09:00 10/03/24 09:28 Lisinopril 20 Mg Tablet PO 20 mg QAM PETER Administration Loratadine 10 mg 10/02/24 09:00 10/03/24 09:28 Loratadine 10 Mg Tablet PO 10 mg QAM PETER Administration Multivitamins Therapeutic 1 tablet 10/02/24 09:00 10/03/24 09:27 Multivitamins Therapeutic Tab (*Bkc) PO 1 tablet DAILY PETER Administration Pantoprazole Sodium 40 mg 10/02/24 09:00 10/03/24 09:28 Pantoprazole 40 Mg Tablet PO 40 mg QAM PETER Administration Perflutren Lipid Microsphere 0 ml 10/01/24 22:06 Perflutren Lipid Microspheres 1.5 Ml Vial Diluted To 10 Ml Total Volume IV PUSH 10/04/24 22:07 ONCE PRN adequate visualization Protocol Polyethylene Glycol 17 gm 10/02/24 09:00 10/03/24 09:29 Polyethylene Glycol 3350 17 Gm Powd.Pack PO 17 gm DAILY PETER Administration Sodium Chloride 1 gm 10/02/24 09:00 10/03/24 12:18 Sodium Chloride 1 Gm Tablet PO 1 gm TID PETER Administration Radiology Results: ITS Impressions Chest X-Ray 10/01/24 16:37 Impression: 1: No acute cardiopulmonary disease. Head/Neck CTA 10/01/24 16:45 IMPRESSION: 1. 0% stenosis of the right carotid bulb relative to normal distal artery lumen diameter (NASCET criteria). 2. 10% stenosis of the left carotid bulb relative to normal distal artery lumen diameter. 3. Normal anatomic relation to the [place] as detailed above. No hemodynamically significant stenosis, aneurysm or thrombosis. 4. Age-related changes the brain including mild diffuse volume loss and moderate scattered white matter hypoattenuation consistent with chronic small vessel ischemic disease. Venous Doppler Study 10/02/24 13:02 IMPRESSION: Deep venous thrombosis within the bilateral gastrocnemius veins and the right posterior tibial veins, as detailed above Brain MRI 10/02/24 13:14 IMPRESSION: 1. No acute intracranial process or abnormally enhancing brain lesions. 2. Mild interval progression in still moderate scattered nonspecific periventricular predominant white matter T2 hyperintensity which is within normal limits for age and likely sequela of chronic small vessel ischemic disease. 2. Unchanged small focus of susceptibility artifact in the right temporal occipital region most likely related to old blood products secondary to chronic microhemorrhage. Abdomen/Pelvis CTA 10/02/24 17:44 IMPRESSION: 1. No evidence of appendicitis, diverticulitis or intestinal obstruction. 2. No evidence of aneurysm or dissection seen in the aorta. 3. Soft tissue density in the left kidney unchanged from previous examination. 4. Enlarged prostate. 5. Sliding hiatus hernia. Labs Labs: Laboratory Results - last 24 hr 10/02/24 10/02/24 10/03/24 15:54 22:29 07:36 WBC RBC Hgb Hct MCV MCH MCHC RDW Plt Count MPV Immature Gran % (Auto) Neut % (Auto) Lymph % (Auto) [place] % (Auto) Eos % (Auto) Baso % (Auto) Lymph # (Auto) [place] # (Auto) Eos # (Auto) Baso # (Auto) Abs Immat Gran (auto) Absolute Neuts (auto) Absolute Nucleated RBC Nucleated RBC % Sodium Potassium Chloride Carbon Dioxide Anion Gap BUN Creatinine Estim Creat Clear Calc Estimated GFR Glucose POC Capillary Glucose 181 H 161 H 150 H Calcium Magnesium Total Bilirubin AST ALT Alkaline Phosphatase Total Protein Albumin 10/03/24 10/03/24 08:23 11:35 WBC 7.4 RBC 4.66 Hgb 13.5 L Hct 41.3 L MCV 88.6 MCH 29.0 MCHC 32.7 RDW 12.5 Plt Count 259 MPV 9.1 Immature Gran % (Auto) 0.3 Neut % (Auto) 83.1 H Lymph % (Auto) 9.9 L [place] % (Auto) 5.7 Eos % (Auto) 0.5 Baso % (Auto) 0.5 Lymph # (Auto) 0.73 L [place] # (Auto) 0.4 Eos # (Auto) 0.0 Baso # (Auto) 0.0 Abs Immat Gran (auto) 0.02 Absolute Neuts (auto) 6.2 Absolute Nucleated RBC 0.000 Nucleated RBC % 0.0 Sodium 131 L Potassium 4.4 Chloride 96 L Carbon Dioxide 26 Anion Gap 9 BUN 13 Creatinine 0.88 Estim Creat Clear Calc 60 Estimated GFR > 60 Glucose 187 H POC Capillary Glucose 269 H Calcium 8.6 Magnesium 2.0 Total Bilirubin 0.8 AST 26 ALT 20 Alkaline Phosphatase 118 Total Protein 7.0 Albumin 4.4 Quality VTE Prophylaxis VTE prophylaxis: mechanical ordered
[2024-10-03 16:25] LABS: Glucose Point of Care 109 mg/dl (65-105)
--- NOTE | 2024-10-03 17:05 | PM.DS ---
DS: Admitting Diagnosis Discharge Date 10/03/24 Admitting Diagnosis TIA Hypertension Diastolic heart failure Type 2 diabetes mellitus DS: Summary Hospital Course Reason for hospitalization: TIA Hypertension Diastolic heart failure Type 2 diabetes mellitus Hospital Course: Final diagnosis: TIA, DVT Status at Discharge Cognitive/behavioral status at discharge: Alert oriented x4 Functional status at discharge: independent ambulation Overall status at discharge: patient is progressing back to baseline Time Spent with Patient Time attestation: Total time spent providing and/or coordinating discharge services: Time spent: Greater than 30 minutes Exam Narrative: General: In no acute distress, well nourished Head: atraumatic, no encephalopathy Eyes: EOMI, PERRLA, sclera clear, denies any vision changes ENT: moist mucous membranes, nasal passages clear Neck: supple, no JVD, no adenopathy, trachea midline Cardiac: Normal S1 and S2. RRR, No murmur, gallops or friction rubs, peripheral pulses intact. Respiratory: Lungs clear to auscultation, no adventitious lung sounds, currently on room air Gastrointestinal: soft, non-distended, non-tender, normoactive bowel sounds. : Ahumada catheter in place draining clear yellow urine Extremities: moves all extremities well, no edema, good ROM, strength 5/5 Skin: clean, dry, intact. No wounds or lesions. Neuro: Alert and oriented x4, cranial nerves intact, no neuro deficits. Facial features symmetrical, no speech impairment Psych: normal mood, normal affect, interactive DS: Data Data Completed and Pending Completed studies during hospitalization: Echocardiogram Abdomen/pelvis CTA Brain MRI Venous Doppler study Head and neck CTA Chest x-ray Pending studies at discharge: Echocardiogram Labs on day of discharge: Labs from last 24 hours 10/03/24 10/03/24 10/03/24 16:21 11:35 08:23 WBC 7.4 RBC 4.66 Hgb 13.5 L Hct 41.3 L MCV 88.6 MCH 29.0 MCHC 32.7 RDW 12.5 Plt Count 259 MPV 9.1 Immature Gran % (Auto) 0.3 Neut % (Auto) 83.1 H Lymph % (Auto) 9.9 L [place] % (Auto) 5.7 Eos % (Auto) 0.5 Baso % (Auto) 0.5 Lymph # (Auto) 0.73 L [place] # (Auto) 0.4 Eos # (Auto) 0.0 Baso # (Auto) 0.0 Abs Immat Gran (auto) 0.02 Absolute Neuts (auto) 6.2 Absolute Nucleated RBC 0.000 Nucleated RBC % 0.0 Sodium 131 L Potassium 4.4 Chloride 96 L Carbon Dioxide 26 Anion Gap 9 BUN 13 Creatinine 0.88 Estim Creat Clear Calc 60 Estimated GFR > 60 Glucose 187 H POC Capillary Glucose 109 H 269 H Calcium 8.6 Magnesium 2.0 Total Bilirubin 0.8 AST 26 ALT 20 Alkaline Phosphatase 118 Total Protein 7.0 Albumin 4.4 10/03/24 10/02/24 07:36 22:29 WBC RBC Hgb Hct MCV MCH MCHC RDW Plt Count MPV Immature Gran % (Auto) Neut % (Auto) Lymph % (Auto) [place] % (Auto) Eos % (Auto) Baso % (Auto) Lymph # (Auto) [place] # (Auto) Eos # (Auto) Baso # (Auto) Abs Immat Gran (auto) Absolute Neuts (auto) Absolute Nucleated RBC Nucleated RBC % Sodium Potassium Chloride Carbon Dioxide Anion Gap BUN Creatinine Estim Creat Clear Calc Estimated GFR Glucose POC Capillary Glucose 150 H 161 H Calcium Magnesium Total Bilirubin AST ALT Alkaline Phosphatase Total Protein Albumin Preliminary micro results at discharge 10/01/24 22:43 Urine Culture - Preliminary Unspecified Escherichia Coli Procedures/Treatments: None Discharge Plan Discharge Attending physician on discharge: Karen Burnett Consulting providers: Cassi Hernandez Discharging Clinician: Janey Chowdary Anticipated Discharge Date/Time: 10/03/24 16:52 Patient Disposition: Home Activity: as tolerated Diet: as tolerated and heart healthy Discharge Instructions: Follow-up with your primary care doctor this week regarding your DVT and also to be referred again to your learning and development coordinator for a 30 day Holter monitor since it has been a few years since she had this done. Your venous Doppler was positive for DVT and was resulted as Deep venous thrombosis within the bilateral gastrocnemius veins and the right posterior tibial veins Continue taking Eliquis--Use the 10mg tabs first. Once done with that prescription change to 5 mg twice a day. Stop taking ibuprofen as this can increase your bleeding risk considering your now on Eliquis. Head and neck CTA did not show stroke and no significant stenosis and bilateral carotid arteries Brain MRI was negative for any acute intracranial process, only showed age-related changes Your echocardiogram has not resulted. We will call you tomorrow once we get results. Make follow-up appointment in the next month with Neurology Patient Instructions: Apixaban (By mouth), Transient Ischemic Attack (DC), Deep Vein Thrombosis (DC) Patient Language: Citizen Of [place] Stand Alone Forms: General Discharge Information Follow-up/Referrals: Karen Benjamin MD [Physician] - 1 Week (30 day event monitor) Meliton Washburn MD [Primary Care Provider] - 1 Week Cassi Hernandez MD [Physician] - 4 Weeks Discharge Medications: New aspirin [Children's Aspirin] 81 mg Tablet,Chewable 81 mg PO DAILY@0800 Qty: 30 0RF Eliquis 5 mg Tablet 10 mg PO Q12HR Qty: 12 0RF Eliquis 5 mg tablet 5 mg PO BID Qty: 60 0RF Continued cetirizine [Zyrtec] 10 mg tablet 10 mg PO DAILY mecobalamin (vitamin B12) 1,000 mcg tablet,chewable 1,000 mcg PO HS ferrous sulfate 325 mg (65 mg iron) tablet 325 mg PO DAILY polyethylene glycol 3350 [Miralax] 17 gram/dose powder 17 g PO DAILY finasteride 5 mg tablet 5 mg PO DAILY sodium chloride 1,000 mg tablet,soluble 1,000 mg PO TID multivitamin [Multiple Vitamins] Tablet 1 tablet PO DAILY ascorbate calcium (vitamin C) 500 mg Tablet 500 mg PO DAILY atorvastatin 10 mg tablet 10 mg PO HS Qty: 90 1RF metformin 500 mg tablet 500 mg PO BID Qty: 180 1RF omeprazole 20 mg capsule,delayed release(DR/EC) 20 mg PO DAILY Qty: 90 1RF fluticasone propionate [Flonase Allergy Relief] 50 mcg/actuation spray,suspension 1 spray intranasal BID Qty: 16 3RF Rx Instructions: administer into each nostril amlodipine-benazepril 10-20 mg capsule 1 cap PO DAILY Qty: 90 1RF Discontinued ibuprofen 600 mg tablet 600 mg PO TID PRN (Reason: Pain, Mild) Date of admission: 10/02/24 16:33 Primary Care Provider: Meliton Washburn Admitting Provider: Morgan Aponte Attending physician on admission: Janey Chowdary Condition: Improved Quality VTE Prophylaxis VTE prophylaxis: pharmacologic ordered Hospitalist MIPS Heart Failure (Exclusion) Patient has history of Heart Transplant or Left Ventricular Assistive Device?: No IF YES, STOP HERE Heart Failure (Qualifier) Patient has current or prior documentation of LVEF less than or equal to 40%, or mod/servere depressed LVSF?: No IF NO, STOP HERE
== END 2024-10-03 17:30 | disposition home or self-care (01) | DRG 69 ==
LOC: ANHED 15:22 → ANH2MED 19:54
PROVIDERS: Emergency Medicine; Physician Assistant; Psychiatry & Neurology Neurology; Admitting Provider General Practice; Emergency Provider Emergency Medicine; PCP Family Medicine; Visit Provider Nurse Practitioner Acute Care
DX: G45.9 Transient cerebral ischemic attack, unspecified (principal); I50.32 Chronic diastolic (congestive) heart failure; I82.441 Acute embolism and thrombosis of right tibial vein; S82.891K Other fracture of right lower leg, subsequent encounter for closed fracture with nonunion; I82.463 Acute embolism and thrombosis of calf muscular vein, bilateral; I11.0 Hypertensive heart disease with heart failure; R47.9 Unspecified speech disturbances; E11.43 Type 2 diabetes mellitus with diabetic autonomic (poly)neuropathy; E78.2 Mixed hyperlipidemia; M12.571 Traumatic arthropathy, right ankle and foot; N40.1 Benign prostatic hyperplasia with lower urinary tract symptoms; R33.8 Other retention of urine; R29.700 NIHSS score 0; Z86.73 Personal history of transient ischemic attack (TIA), and cerebral infarction without residual deficits; Z87.891 Personal history of nicotine dependence
CPT/HCPCS: 36415; 70496; 70498; 70553; 71045; 74174; 80048; 80053; 80061; 81001; 82948; 83735; 84443; 84484; 85025; 85610; 85730; 87086; 87186; 93005; 93306; 93970; 96374; 96375; 97161; 97165; 99285; A9270; A9579; G0378; J1815; Q9967

== ENCOUNTER 2024-10-28 13:33 | Emergency (ER) | payer MEDICARE, SELFPAY ==
--- NOTE | 2024-10-28 13:38 | ED_ITS ---
HPI - URI/Sore Throat General Chief Complaint: Upper Respiratory Infection Stated Complaint: Cough and Chest Congestion Time Seen by Provider: 10/28/24 14:00 Source: patient Mode of arrival: ambulatory Limitations: no limitations History of Present Illness HPI Narrative: Meliton is an 84-year-old male patient presenting to the clinic today with complaints of right sided nasal congestion and cough. He reports symptoms started last night. Denies any chest pain or shortness of breath. Cough is nonproductive. Feels as though there is drainage going in the back of his throat. Has not taken anything for his symptoms MD elicited complaint: sore throat and nasal congestion Related Data Home Medications ?Medication ?Instructions ?Recorded ?Confirmed ?Last Taken ?Type cetirizine 10 mg tablet (Zyrtec) 10 mg PO DAILY 07/04/19 10/08/24 04/01/20 History multivitamin (Multiple Vitamins 1 tablet PO DAILY 02/29/20 10/08/24 04/01/20 History tablet) finasteride 5 mg tablet 5 mg PO DAILY 02/26/22 10/08/24 Unknown History mecobalamin (vitamin B12) 1,000 1,000 mcg PO HS 05/18/22 10/08/24 Unknown History mcg chewable tablet ascorbate calcium (vitamin C) 500 500 mg PO DAILY 04/15/23 10/08/24 Unknown History mg tablet ferrous sulfate 325 mg (65 mg 325 mg PO DAILY 11/03/23 10/08/24 Unknown History iron) tablet polyethylene glycol 3350 17 17 g PO DAILY 11/03/23 10/08/24 Unknown History gram/dose oral powder (Miralax) sodium chloride 1,000 mg soluble 1,000 mg PO TID 10/01/24 10/08/24 Unknown History tablet triamcinolone acetonide 0.1 % applic topical 10/08/24 10/08/24 Unknown History topical cream Allergies Allergy/AdvReac Type Severity Reaction Status Date / Time adhesive tape Allergy Mild Rash Verified 10/28/24 13:56 neomycin Allergy Mild Rash Verified 10/28/24 13:56 hydrochlorothiazide AdvReac Severe hyponatremi Verified 10/28/24 13:56 a Sulfa (Sulfonamide AdvReac Intermediate Nausea Verified 10/28/24 13:56 Antibiotics) Review of Systems Review of Systems: Pertinent positives per HPI. Patient denies any fever, chills, rash, headache, visual changes, dizziness, cough, shortness of breath, chest pain, palpitations, nausea, vomiting, diarrhea, constipation, abdominal pain, or any urinary issues. 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 Code status: Full code. Smoking packs per day: 1 Smoking cigarettes per day: 20.0 Years smoked: 14 Smoking pack-years: 14.00 Smoking status: Former smoker Tobacco type: cigarettes Alcohol intake: never Alcohol use details: FEW DRINKS/YEAR Substance use: never Substance use type: does not use Do You Feel Safe in your Home?: Yes Lack of Transportation: No Lack of Food: Never True Current Housing: I Have Housing Concerned About Future Housing: No Difficulty Paying Gas/Electric Bills: No Difficulty Paying for Meds: No Currently Unemployed: No Education: Trade/Vocational Certificate Difficulty w/ Childcare or Family Care: No Living arrangements: with family Occupation/Education: retired Spiritual care concerns: No Comments At the time of my signature, I reviewed and agree with the nursing past medical, surgical, social, and family history. There is no relevant family history pertinent to the patient complaint. Exam Narrative: General: Well-developed, well nourished, in no apparent distress Head: Normocephalic, atraumatic Eyes: Pupils equally round and reactive to light bilaterally, EOM intact, sclera and conjunctive clear, no discharge, lids normal Ears: TMs intact and clear, ear canals clear, no drainage, grossly hearing normal. Nose: Nares patent, clear nasal discharge, severe inflammation to right near, no sinus tenderness. Mouth: Oral pharynx without lesions or masses, good dentition, MMM. Postnasal drip Neck: Supple, trachea midline, no enlargement of anterior or posterior cervical nodes, no thyroid masses or goiter palpable. Cardio: Irregular irregularity rate and rhythm, s1 and s2 normal, no murmur appreciated. Resp: Clear to auscultation bilaterally, no rhonchi, rales, wheezing or rubs Course Course Emergency Course: Portions of this record may have been created with voice recognition software. Level of Care: Express Care Visit Vital Signs Vital signs: Vital Signs Temperature 37.4 C 10/28/24 13:57 Pulse Rate 76 10/28/24 13:57 Respiratory Rate 20 10/28/24 13:57 Blood Pressure 147/84 H 10/28/24 13:57 Pulse Oximetry 98 10/28/24 13:57 Oxygen Delivery Room Air 10/28/24 13:57 Temperature 37.4 C 10/28/24 13:57 Pulse Rate 76 10/28/24 13:57 Respiratory Rate 20 10/28/24 13:57 Blood Pressure 147/84 H 10/28/24 13:57 Pulse Oximetry 98 10/28/24 13:57 Oxygen Delivery Room Air 10/28/24 13:57 Vital signs reviewed MDM - URI/Sore Throat MDM Narrative Medical decision making narrative: At the time of visit patient is resting comfortably on the exam table. Patient appears to be nontoxic. Labs: COVID and influenza testing was negative in the clinic today. Plan: I suspect patient has right sided nasal congestion with postnasal drip. Recommend Flonase and [id number] antihistamines. No sign of bacterial infection in the lung sounds are clear in the office today. Supportive measures were discussed with the patient and they voiced understanding discharge instructions and agrees to treatment plan. Return precautions reviewed Differential Diagnosis Differential diagnosis: Likely upper respiratory infection, otitis media, sinusitis, viral infection, bronchitis, influenza, pharyngitis and other (COVID) Discharge Plan Discharge Clinical Impression: Nasal congestion, PND (post-nasal drip) Patient Disposition: Home Condition: Stable Instructions: Antibiotic Form, Allergies (ED), Postnasal Drip (DC) Additional Instructions: Lung sounds are clear and there is no sign of bacterial infection in the clinic today. Increase fluids and stay well hydrated Tylenol/motrin for pain/fever May take OTC antihistamines such as Zyrtec or Claritin daily as directed Use Flonase daily as directed Vicks vapor rub to open sinuses Sinus rinses for congestion Cepacol spray, cough drops, throat lozenges, warm tea with honey/lemon, gargle salt water to soothe throat BRAT diet for diarrhea Clear liquids x 24 hours then advance as tolerated for nausea/vomiting Go to the ED if you develop a worsening in your condition- high fever not controlled by Tylenol or Motrin, dehydration, weakness, lethargy, shortness of breath, or chest pain. Follow up with your PCP in 3-5 days if symptoms persist. Patient Language: Divehi Prescriptions: No Action cetirizine [Zyrtec] 10 mg tablet 10 mg PO DAILY mecobalamin (vitamin B12) 1,000 mcg tablet,chewable 1,000 mcg PO HS ferrous sulfate 325 mg (65 mg iron) tablet 325 mg PO DAILY polyethylene glycol 3350 [Miralax] 17 gram/dose powder 17 g PO DAILY finasteride 5 mg tablet 5 mg PO DAILY triamcinolone acetonide 0.1 % cream topical Eliquis 5 mg tablet 5 mg PO BID Qty: 60 1RF sodium chloride 1,000 mg tablet,soluble 1,000 mg PO TID aspirin [Children's Aspirin] 81 mg Tablet,Chewable 81 mg PO DAILY@0800 Qty: 30 0RF multivitamin [Multiple Vitamins] Tablet 1 tablet PO DAILY ascorbate calcium (vitamin C) 500 mg Tablet 500 mg PO DAILY omeprazole 20 mg capsule,delayed release(DR/EC) 20 mg PO DAILY Qty: 90 1RF fluticasone propionate [Flonase Allergy Relief] 50 mcg/actuation spray,suspension 1 spray intranasal BID Qty: 16 3RF Rx Instructions: administer into each nostril amlodipine-benazepril 10-20 mg capsule 1 cap PO DAILY Qty: 90 1RF metformin 500 mg tablet 500 mg PO BID Qty: 180 1RF atorvastatin 10 mg tablet 10 mg PO HS Qty: 90 1RF Follow-up/Referrals: Meliton Washburn MD [Primary Care Provider] - Time of Disposition: 14:29 Quality NIHSS Nursing Documentation ED NIHSS nursing documentation: reviewed/agree
[2024-10-28 13:57] VITALS: BP 147/84; PULSE 76; RESP 20; TEMP 37.4; O2SAT 98
[2024-10-28 14:55] LABS: EDCOVIDSCREEN Negative (Negative); EDINFLUASCREEN Negative (Negative); EDINFLUBSCREEN Negative (Negative)
== END 2024-10-28 14:54 | disposition home or self-care (01) ==
PROVIDERS: Emergency Provider Nurse Practitioner Family; PCP Family Medicine
DX: R09.81 Nasal congestion (principal); R09.82 Postnasal drip; Z20.822 Contact with and (suspected) exposure to COVID-19; Z87.891 Personal history of nicotine dependence; I10 Essential (primary) hypertension; E78.2 Mixed hyperlipidemia; E11.43 Type 2 diabetes mellitus with diabetic autonomic (poly)neuropathy; Z79.84 Long term (current) use of oral hypoglycemic drugs; D64.9 Anemia, unspecified; I77.9 Disorder of arteries and arterioles, unspecified; Z86.73 Personal history of transient ischemic attack (TIA), and cerebral infarction without residual deficits
CPT/HCPCS: 87426; 87804; 99212; G0463

== ENCOUNTER 2024-11-01 13:23 | Outpatient (CLI) | payer MEDICARE, SELFPAY ==
--- OUTSIDE RECORDS SUMMARY | 2024-11-01 13:29 | XMS_ITS | Clinical Summary ---
Author Organization [facility] [address] Address [address] [place] [address] Care Team Providers Care Information Assurance Manager Name Role Phone Meliton Washburn MD Primary Care Provider [phone] Allergies Active Allergy Reactions Criticality Noted Date [...] (10 mg total) by mouth daily Active Eliquis 5 mg tablet Take 1 tablet (5 mg total) by mouth 2 (two) times a day 5 Active ARLENE LOW DOSE ASPIRIN ORAL Take 81 mg by mouth daily 5 Active Active Problems Problem Noted Date Diagnosed Date Hyponatremia 10/23/2023 Acute cystitis without hematuria 10/23/2023 Generalized weakness 10/23/2023 Hypertension associated with diabetes Hyperlipidemia associated with type 2 diabetes m ellitus Aneurysm of ascending aorta Nonrheumatic aortic valve stenosis Resolved Problems Problem Noted Date Diagnosed Date Resolved Date Other chest pain 10/23/2023 Encounters Date Type Department Care Team Description 10/23/2024 11:30 AM CDT Office Visit [facility] Cardiology [address] [place] [address] Kay Husain NP TIA (transient ischemic attack) (Primary Dx); Deep vein thrombosis (DVT) of distal vein of both lower extremities, unspecified chronicity (HCC); Hospital discharge follow-up 08/22/2024 2:30 PM TOMB MAKER HELPER Office Visit [facility] Nephrology at [address] [place] [address] Sourav Park MD Hyponatremia (Primary Dx); [...] Used Date Smoking Tobacco: Former Cigarettes 0.5 50.4 S tarted: 1974 Smokeless Tobacco: Never Tobacco Cessation:Counseling Given: Not Answered [facility] Utilities Answer Date Recorded In the past [...] often do you attend chur ch or moravian services? Never 10/24/2023 Do you belong to any clubs o r organizations such as yarsanism groups, unions, fraternal or athletic groups, or school groups? No 10/24/2023 How often do you attend meet ings of the clubs or organizations you belong to? Never 10/24/2023 Are you , , di vorced, , never , or living with a partner? 10/24/2023 AUDIT-C Answer Date Recorded Q1: How often do you have a drink containing alc ohol? Monthly or less 08/22/2024 Average Number of Drinks Not on file 025 Frequency of Binge Drinking Not on file 10/2024 Overall Financial Resource Strain (CARDIA) Answe r [...] on file Legal Sex Male 3:39 PM TOMB MAKER HELPER Gender Identity Not on file Sexual Orientation Not on file Obstetrics History Last Filed Vital Signs Vital Sign Reading Time Taken Comments Blood Pressure 126/64 10/23/2024 11:32 AM CDT Pulse 65 10/23/2024 11:32 AM CDT Temperature 37 C (98.6 F) 08/22/2024 2:23 PM TOMB MAKER HELPER Respiratory Rate 18 10/27/2023 12:40 PM CDT Oxygen Saturation 97% 10/23/2024 11:32 AM CDT Inhaled Oxygen Concentration - - Weight 89.4 kg (197 lb) 10/23/2024 11:32 AM CDT Height 182.9 cm (6') 10/23/2024 11:32 AM CDT Body Mass Index 26.72 10/23/2024 11:32 AM CDT Plan of Treatment Health Maintenance [...] 2023-2 5 season) 2024 05/28/2021, 09/05/2020, 08/15/2020 Hemoglobin A1C 04/25/2024 10/24/2023 Lipid Panel 10/23/2024 10/24/2023 Fall Risk Assessment 10/26/2024 10/27/2023 eGFR 10/26/2024 10/27/2023, 05/0 01/2024, 10/26/2023, Additional history exists Influenza Vaccine (Season Ended) 2025 05/26/2021, 03/28/2020, 03/29/2019, Additional history exists Procedures Procedure Name Priority [...] was last reviewed 2021. Testing performed by: [facility], [address] [place] [address]., [address] Blood 10/27/2023 8:55 AM CDT 10/27/2023 9:00 AM CDT us Ingrid Cheek MD LAB BLOOD ORDERABLES Final Resul t Performing Organization Address City/[facility] Co de Phone Number [address] [address] * (ABNORMAL) Hemoglobin A1c (10/24/2023 7:46 AM CDT) Hgb A1C 6.9(H) 4.0 - 5.6 % Comment:Testing performed by : [address] [address] Estimated Average Glucose 151 mg/dL [facility] Comment: The ADA recommends reporting an estimated Average Glucose (eAG) with all Hemoglobin A1c results using the equation derived from a study of 507 normal and diabetic adults. Minority populations were underrepresented and children were not included. (Diabetes Care 31:6867-0533, 2008). The eAG is not equivalent to a fasting glucose. Testing performed by: [address] [address] Blood 10/24/2023 7:46 AM CDT 10/24/2023 9:33 AM CDT us Jaren Goyal MD LAB BLOOD ORDERABLES Final Result Performing Organization Address [facility] Co de Phone Number [place] [id number] [place] [address] * Lipid panel (10/24/2023 7:46 AM CDT) [...] last revised on 2018. Testing performed by: [address] [address] Triglycerides 79 <=149 mg/dL [facility] Comment: Interpretive [...] last revised on 2018. Testing performed by: [address] [address] HDL 45 >=40 mg/dL [facility] Comment: Interpretive [...] last revised on 2018. Testing performed by: [address] [address] LDL, calculated 40 <=129 mg/dL [facility] Comment: [...] last revised on 2018. Testing performed by: [address] [address] Non-HDL Cholesterol 56 mg/dL [facility] Comment: [...] last revised on 2018. Testing performed by: [address] [address] Chol/HDL ratio 2 [facility] Comment:Testing performed by : [address] [address] Blood 10/24/2023 7:46 AM CDT 10/24/2023 9:33 AM CDT us Jaren Goyal MD LAB BLOOD ORDERABLES Final Result [facility] [address] [facility] Department [place] [address] from Last 3 Months or Most Recently Relevant to Health Maintenance Insurance MEDICARE [facility] [address] MEDICARE MEDICARE [place] [facility] [place] Advance Directives For more information, please contact: [phone] * Full Code (Latest Code Status on File) Date Activated Date Inactivated Comments 10/23/2023 9:44 PM 10/27/2023 6:43 PM Care Teams Information Assurance Manager Relationship Specialty Start Date End Date Meliton Washburn MD PCP - General Family Medicine 04/01/22
--- OUTSIDE RECORDS SUMMARY | 2024-11-01 13:29 | XMS_ITS | Continuity of Care Document ---
Author Organization [facility] Address [address] [facility] [address] [place] [address] Phone Care Team Providers Care Health Physics Technician Name Role Phone Holland OD, Christian Unavailable [...] Diagnoses Date Provider Providers Copied on Encounter Located within [facility], [address] [place] [address] [address], [place], [place], [id number], tel:[phone] SEC [facility] No Information Nov-0 6-200 9 Holland OD Christian. [address] , [address], [place], [address], [place]. tel:[phone] Referring Provider: Dale Stone MD [place], [address] [place] [address], [address]. tel:[phone] [facility], [address] [place] [address] [address], [place], [place], [id number], tel:[phone] SEC [facility] No Information Oct-0 2-200 8 Holland OD Christian. [address] , [address], [place], [address], [place]. tel:[phone] Referring Provider: Dale Stone MD [place], [address] [place] [address], [address]. tel:[phone] [facility], [address], [place], [place], [id number], [place] tel:[phone] SEC [facility] No Information Mar-3 0-200 7 [facility] . [address], [address], [place], [place], [address], [place]. tel:[phone] Consulting Provider: Melodie Tran, [address] [place] [address], [address]. tel:[phone] [facility], [address], [place], [place], [id number], [place] tel:[phone] SEC [facility] No Information Aug-3 0-200 7 [facility] . [address], [address], [place], [place], [id number], [place]. tel:[phone] Referring Provider: Delvin Foster, [address] [place] [address], [address]. tel:[phone] lting Provider: Melodie Tran, [address] [place] [address], [address]. tel:[phone] Family History Family Member Type Diagnosis Age At Onset No Information Payers Payer name Insurance type Covered alliance party ID Authoriza tion(s) Medicare [facility] [id number] [facility] CI [id number] Social History Type Description Quantity Date Captured [...]
--- OUTSIDE RECORDS SUMMARY | 2024-11-01 13:29 | XMS_ITS | Referral Summary ---
Author Organization [facility] [address] Address [address] [place] [address] Care Team Providers Care Military Pilot Name Role Phone Meliton Washburn MD Primary Care Provider [phone] Encounters Date Type Department Care Team Description 10/23/2024 11:30 AM CDT Office Visit [facility] Cardiology [address] [place] [address] Kay Husain NP TIA (transient ischemic attack) (Primary Dx); Deep vein thrombosis (DVT) of distal vein of both lower extremities, unspecified chronicity (HCC); Hospital discharge follow-up 08/22/2024 2:30 PM SKEIN YARN DYER Office Visit [facility] Nephrology at [address] [place] [address] Sourav Park MD Hyponatremia (Primary [...] Tobacco: Never Tobacco Cessation:Counseling Given: Not Answered [facility] Utilities Answer Date Recorded In the past 12 months has [facility] [employer], [employer], oil, or water [employer] threatened to shut off services in your [...] any clubs o r organizations such as mormonism groups, unions, fraternal or athletic groups, or [...] file Legal Sex Male 3:39 PM SKEIN YARN DYER Gender Identity Not on file Sexual Orientation Not on file Last Filed Vital Signs Vital Sign Reading Time Taken Comments Blood Pressure 126/64 10/23/2024 11:32 AM CDT Pulse 65 10/23/2024 11:32 AM CDT Temperature 37 C (98.6 F) 08/22/2024 2:23 PM SKEIN YARN DYER Respiratory Rate 18 10/27/2023 12:40 PM CDT Oxygen Saturation 97% 10/23/2024 11:32 AM CDT Inhaled Oxygen Concentration - - Weight 89.4 kg (197 lb) 10/23/2024 11:32 AM CDT Height 182.9 cm (6') 10/23/2024 11:32 AM CDT Body Mass Index 26.72 10/23/2024 11:32 AM CDT Plan of Treatment Not on [...] was last reviewed 2021. Testing performed by: [address] [address] Blood 10/27/2023 8:55 AM CDT 10/27/2023 9:00 AM CDT us Ingrid Cheek MD LAB BLOOD ORDERABLES Final Resul t Performing Organization Address [facility] Co de Phone Number [address] [place] [address] * (ABNORMAL) Hemoglobin A1c (10/24/2023 7:46 AM CDT) [facility] Signature Hgb A1C 6.9(H) 4.0 - 5.6 % Comment:Testing performed by : [address] [address] Estimated Average Glucose 151 mg/dL [facility] Comment: The ADA recommends reporting an estimated Average Glucose (eAG) with all Hemoglobin A1c results using the equation derived from a study of 507 normal and diabetic adults. Minority populations were underrepresented and children were not included. (Diabetes Care 31:4830-5936, 2008). The eAG is not equivalent to a fasting glucose. Testing performed by: [address] [address] Blood 10/24/2023 7:46 AM CDT 10/24/2023 9:33 AM CDT us Jaren Goyal MD LAB BLOOD ORDERABLES Final Result Performing Organization Address City/[facility] Co de Phone Number [address] [place] [address] * Lipid panel (10/24/2023 7:46 AM CDT) [facility] Cholesterol 101 30 - 199 mg/dL Comment: [...] last revised on 2018. Testing performed by: [address] [address] Triglycerides 79 <=149 mg/dL [facility] Comment: Interpretive [...] last revised on 2018. Testing performed by: [address] [address] HDL 45 >=40 mg/dL [facility] Comment: Interpretive [...] last revised on 2018. Testing performed by: [address] [address] LDL, calculated 40 <=129 mg/dL [facility] Comment: Interpretive Data Ages [...] last revised on 2018. Testing performed by: [address] [address] Non-HDL Cholesterol 56 mg/dL [facility] Comment: [...] last revised on 2018. Testing performed by: [address] [address] Chol/HDL ratio 2 [facility] Comment:Testing performed by : [address] [address] Blood 10/24/2023 7:46 AM CDT 10/24/2023 9:33 AM CDT us Jaren Goyal MD LAB BLOOD ORDERABLES Final Result [facility] [address] [facility] Department [place] [address] from Last 3 Months or Most Recently Relevant to Health Maintenance Insurance MEDICARE [facility] MEDICARE MEDICARE [facility] Advance Directives For more information, please contact: [phone] * Full Code (Latest Code Status on File) Date Activated Date Inactivated Comments 10/23/2023 9:44 PM 10/27/2023 6:43 PM Care Teams Military Pilot Relationship Specialty Start Date End Date Meliton Washburn MD PCP - General Family Medicine 04/01/22
--- OUTSIDE RECORDS SUMMARY | 2024-11-01 13:29 | XMS_ITS | Clinical Summary ---
Author Organization [facility] Address [address] [place] [address] Care Team Providers Care Durability Technician Name Role Phone Dale Stone MD Primary Care Provider [phone] Social History Tobacco Use Types Packs/Day Years Used Date Smoking Tobacco: Never Assessed Sex and Gender Information Value Date Recorded Sex Assigned at Not on file Legal Sex Male 8:01 AM CDT Gender Identity Not on file Sexual Orientation Not on file Plan of Treatment Health Maintenance Due Date Last Done Comments DTaP, Tdap and Td Vaccines ( 1 - Tdap) 1959 Pneumococcal Vaccine: 50+ Ye ars (1 of 1 - PCV) 1990 Zoster Vaccines (1 of 2) 1990 Annual Medicare Wellness Visit 2005 RSV Immunization or 60+ Years (1 [...] age to complete this topic Insurance [facility] MEDICARE Care Teams Durability Technician Relationship Specialty Start Date End Date Dale Stone MD [address] [place] [address] PCP - General FAMILY PRACTICE 03/31/20
--- OUTSIDE RECORDS SUMMARY | 2024-11-01 13:29 | XMS_ITS | Clinical Summary ---
Author Organization [facility] Olga Gleason Address [address] [place] [address] Care Team Providers Care Health Counselor Name Role Phone Meliton Washburn MD Primary Care Provider +1- [phone] Allergies Active Allergy Reactions Criticality Noted Date [...] mouth. Active fluticasone propionate (FLONASE) 50 mcg/spray [place], Suspension nasal inhaler Administer 2 Sprays in [...] mouth 3 times daily with meals. 4 11/16/19 25 Active Active Problems Problem Noted Date Diagnosed Date Chronic anemia 03/30/2022 Encounters Date Type Department Care Team Description 11/01/2024 Orders Only [facility] Oncology and Hematology - Eusebio [address] [place] [address] Av Melendez MD Chronic anemia (Primary Dx) 09/05/2024 External Device Data STL ABSTRACTION Provider, [...] Comments Blood Pressure 131/68 05/07/2024 3:27 PM ROLLER TURNER Pulse 69 05/07/2024 3:24 PM ROLLER TURNER Temperature 36.6 C (97.8 F) 05/07/2024 3:24 PM ROLLER TURNER Respiratory Rate 15 05/07/2024 3:24 PM ROLLER TURNER Oxygen Saturation 96% 05/07/2024 3:24 PM ROLLER TURNER Inhaled Oxygen Concentration - - Weight 83.3 kg (183 lb 9.6 oz) 05/07/2024 3:24 P M ROLLER TURNER Height 182.9 cm (6') 03/30/2022 2:41 PM CDT Body Mass Index 24.9 03/30/2022 2:41 PM CDT Plan of Treatment Upcoming Encounters Date Type Department Care Team (Late st Contact Info) Description 11/05/2024 1:00 PM CDT Office Visit [facility] Oncology and Hematology - Eusebio [address] [place] [address] Av Melendez MD [address] [facility] [address] [place] [address] Health Maintenance Due Date Last Done Comments DIABETES ANNUAL FOOT EXAM 1958 DIABETES ANNUAL RETINAL EXAM 1958 DIABETES MICROALBUMIN ANNUAL SCREEN 1958 LDL CHOLESTEROL ANNUAL 1958 DTAP/TDAP/TD VACCINES (1 - Tdap) 1959 PNEUMOCOCCAL VACCINE 50+ YEA RS (1 of 2 - PCV) 1959 Traditional Medicare (ACO) A nnual Wellness Visit 1959 ZOSTER VACCINE (1 of 2) 1990 RSV VACCINE (60+ or ) (1 - 1-dose 75+ series) 2015 INFLUENZA VACCINE (#1) 2024 DIABETES HBA1C Q 6 MONTHS 04/25/20242023, 07/28/2023, 07/22/2023, Additional history exists Insurance TRADITIONAL MEDICARE PART A AND B Care Teams Health Counselor Relationship Specialty Start Date End Date Meliton Washburn MD PCP - General Family Practice 03/30/22
[2024-11-01 13:46] LABS: Hematocrit 34.3 % (42.0-52.0); Hemoglobin 11.4 g/dL (14.0-18.0); Mean Corpuscular HGB Conc 33.2 g/dl (32-36); Mean Corpuscular Hemoglobin 29.3 pg (26-34); Mean Corpuscular Volume 88.2 fl (80-100); Mean Platelet Volume 8.9 fl (7.4-10.4); Platelet Count Result 301 k/mm3 (150-375); Red Blood Count 3.89 M/mm3 (4.6-6.20); Red Cell Distribution Width 12.5 % (11.5-14.5); White Blood Count 6.6 K/mm3 (4.5-10.0)
[2024-11-01 16:30] LABS: Anion Gap 7 mmol/L (4-12); Blood Urea Nitrogen 10 mg/dL (9-20); Calcium 8.3 mg/dL (8.4-10.2); Carbon Dioxide 28 mmol/L (22-30); Chloride 99 mmol/L (98-107); Estimated Glomerular Filt Rate > 60; Glucose 115 mg/dL (65-110); Iron 36 ug/dL (49-181); Potassium 4.1 mmol/L (3.4-5.0); Sodium 134 mmol/L (137-145)
[2024-11-01 16:40] LABS: Percent Iron Saturation 16 % (20-50)
[2024-11-01 17:46] LABS: Folic Acid > 20.0 ng/mL (2.76->20)
== END 2024-11-01 13:24 | disposition home or self-care (01) ==
LOC: ANHLAB 13:25
PROVIDERS: PCP Family Medicine; Visit Provider Internal Medicine Hematology & Oncology
DX: D64.9 Anemia, unspecified (principal)
CPT/HCPCS: 36415; 80048; 82607; 82728; 82746; 83540; 83550; 85027

== ENCOUNTER 2024-12-13 10:40 | Outpatient (CLI) | payer MEDICARE, SELFPAY ==
[2024-12-13 12:49] LABS: Alanine Aminotransferase 16 U/L (6-50); Albumin Level 3.8 g/dL (3.5-5.1); Alkaline Phosphatase 81 U/L (38-126); Anion Gap 9 mmol/L (4-12); Aspartate Amino Transferase 33 U/L (17-59); Bilirubin,Total 0.4 mg/dL (0.2-1.3); Blood Urea Nitrogen 13 mg/dL (9-20); Calcium 8.6 mg/dL (8.4-10.2); Carbon Dioxide 25 mmol/L (22-30); Chloride 100 mmol/L (98-107); Estimated Glomerular Filt Rate > 60; Glucose 158 mg/dL (65-110); Phosphorus 3.1 mg/dL (2.5-4.5); Sodium 134 mmol/L (137-145); Total Protein 6.4 g/dL (6.3-8.2)
[2024-12-13 12:58] LABS: Potassium 3.9 mmol/L (3.4-5.0)
== END 2024-12-13 10:41 | disposition home or self-care (01) ==
LOC: ANHGOSHLAB 10:41
PROVIDERS: PCP Family Medicine; Visit Provider Internal Medicine Nephrology
DX: E87.1 Hypo-osmolality and hyponatremia (principal)
CPT/HCPCS: 36415; 80053; 84100

== ENCOUNTER 2025-01-31 13:39 | Outpatient (CLI) | payer MEDICARE, SELFPAY ==
--- OUTSIDE RECORDS SUMMARY | 2025-01-31 13:42 | XMS_ITS | Clinical Summary ---
Author Organization [facility] [address] Address [address] [place] [address] Care Team Providers Care Accountant Cost Name Role Phone Meliton Washburn MD Primary Care Provider +1 [phone] Allergies Active Allergy Reactions Criticality Noted Date Comments Adhesive Tape-Silicones Rash Medium 01/19/2024 Sulfa (Sulfonamide Antibiotics) Unknown 09/2021 Medications amLODIPine-chana azepriL (LOTREL) 10-20 mg per capsule Take 1 [...] 1 spray into each nostril daily Active multivitamin-m inerals-lutein (Multivitamin 50 Plus) tablet Take by mouth daily Active finasteride (PROSCAR) 5 mg tablet Take 1 tablet (5 mg total) by mouth daily 2 Active ascorbic acid (ascorbic acid with brenda hips) 500 mg tablet,chewabl e daily Active cyanocobalamin (Vitamin B-12) 1,000 mcg tabletIndicati ons:Prevention of Vitamin B12 Deficiency Take 1 tablet (1,000 mcg total) by mouth daily Active polyethylene glycol (MIRALAX) 17 gram packetIndicati ons:constipati on Take 1 packet (17 g total) by mouth daily Active cetirizine (ZyrTEC) 10 mg tablet Take 1 tablet (10 mg total) by mouth daily Active ARLENE LOW DOSE ASPIRIN ORAL Take 81 mg by mouth daily 5 Active Eliquis 5 mg tablet Take 1 tablet (5 mg total) by mouth 2 (two) times a day 180 tablet 1 5 Active sodium chloride 1 gram tablet Take 1 tablet (1 g total) by mouth 3 (three) times a day 270 tablet 3 5 01/29/20 26 Active sodium chloride 1 gram tablet Take 1 tablet (1 g total) by mouth 3 (three) times a day 270 tablet 3 4 01/29/20 25 Discontinu ed(Reorder ) Active Problems Problem Noted Date Diagnosed Date Hyponatremia 10/23/2023 Acute cystitis without hematuria 10/23/2023 Generalized weakness 10/23/2023 Hypertension associated with diabetes Hyperlipidemia associated with type 2 diabetes m ellitus Aneurysm of ascending aorta Nonrheumatic aortic valve stenosis Resolved Problems Problem Noted Date Diagnosed Date Resolved Date Other chest pain 10/23/2023 Encounters Date Type Department Care Team Description 01/14/2025 11:00 AM CDT Office Visit [facility] Medical [facility] Cardiology [address] [place] [address] [place] [address] Kay Husain NP TIA (transient ischemic attack) (Primary Dx); History of DVT of lower extremity; Encounter for anticoagulation discussion and counseling 01/14/2025 10:30 AM CDT Ancillary Procedure [facility] Cardiology [address] [place] [address] [place] [address] TIA (transient ischemic attack) 12/27/2024 Telephone [facility] Cardiology [address] [place] [address] [place] [address] Karen Benjamin MD from Last 3 Months Surgical History Surgery Date Site/Laterality Comments CHOLECYSTECTOMY ANKLE FRACTURE SURGERY Right x 2 FRACTURE SURGERY 2019 Medical History Medical History Date Comments HTN (hypertension) Heart murmur High cholesterol Type 2 diabetes mellitus GERD (gastroesophageal reflux disease) Arthritis Enlarged prostate Anemia 2021 Benign prostatic hyperplasia 2000 Family History Medical History Relation Name Comments Heart attack Father Herb Stroke Father Herb Cancer Mother Radha Heart disease Other Stroke Other Relation Name Status Comments Father Herb Mother Radha Other Social History Tobacco Use Types Packs/Day Years Used Date Smoking Tobacco: Former Cigarettes 0.5 50.6 S tarted: 1974 Smokeless Tobacco: Never Tobacco Cessation:Counseling Given: Not Answered [facility] Utilities Answer Date Recorded In the past 12 months has e Cover, gas, oil, or water [employer] threatened to shut off services in your home? No 10/24/2023 Social Connection and Isolation Panel Answer Date Recorded In a typical week, how many times do you talk on the phone with family, friends, or neighbors? More than three times a week 10/24/2023 How often do you get togethe r with friends or relatives? More than three times a week 10/24/2023 How often do you attend [facility] ch or druze services? 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 Gender Identity Not on file Sexual Orientation Not on file Obstetrics History Last Filed Vital Signs Vital Sign Reading Time Taken Comments Blood Pressure 124/56 01/14/2025 11:00 AM CDT Pulse 66 01/14/2025 11:00 AM CDT Temperature 37 C (98.6 F) 08/22/2024 2:23 PM BOAT OPERATOR Respiratory Rate 18 10/27/2023 12:40 PM CDT Oxygen Saturation 97% 01/14/2025 11:00 AM CDT Inhaled Oxygen Concentration - - Weight 88 kg (194 lb) 01/14/2025 11:00 AM CDT Height 182.9 cm (6') 01/14/2025 11:00 AM CDT Body Mass Index 26.31 01/14/2025 11:00 AM CDT Plan of Treatment Health Maintenance [...] 01/2024, 10/26/2023, Additional history exists Influenza Vaccine (#1) 2025 , 03/28/2020, 03/29/2019, Additional history exists Procedures Procedure [...] was last reviewed 2021. Testing performed by: [address] [address] Blood 10/27/2023 8:55 AM CDT 10/27/2023 9:00 AM CDT Ingrid Cheek MD LAB BLOOD ORDERABLES Final Resul t Performing Organization Address [facility] de Phone Number [address] [address] * (ABNORMAL) Hemoglobin A1c (10/24/2023 7:46 AM CDT) Hgb A1C 6.9(H) 4.0 - 5.6 % Comment:Testing performed by : [address] [address] Estimated Average Glucose 151 mg/dL [facility] Comment: The ADA recommends reporting an estimated Average Glucose (eAG) with all Hemoglobin A1c results using the equation derived from a study of 507 normal and diabetic adults. Minority populations were underrepresented and children were not included. (Diabetes Care 31:3735-9833, 2008). The eAG is not equivalent to a fasting glucose. Testing performed by: [address] [address] Blood 10/24/2023 7:46 AM CDT 10/24/2023 9:33 AM CDT us Jaren Goyal MD LAB BLOOD ORDERABLES Final Result Performing Organization Address [facility] Co de Phone Number [facility] [address] [facility] [place] [address] * Lipid panel (10/24/2023 7:46 AM CDT) [...] last revised on 2018. Testing performed by: [address] [address] Triglycerides 79 <=149 mg/dL [facility] Comment: Interpretive [...] last revised on 2018. Testing performed by: [address] [address] HDL 45 >=40 mg/dL [facility] Comment: Interpretive [...] last revised on 2018. Testing performed by: [address] [address] LDL, calculated 40 <=129 mg/dL [facility] Comment: [...] last revised on 2018. Testing performed by: [address] [address] Non-HDL Cholesterol 56 mg/dL [facility] Comment: Interpretive [...] on 2018. Testing performed by: [facility], [address] [place] [address]., [address] Chol/HDL ratio 2 [facility] Comment:Testing performed by : [address] [address] Blood 10/24/2023 7:46 AM CDT 10/24/2023 9:33 AM CDT us Jaren Goyal MD LAB BLOOD ORDERABLES Final Result [facility] [address] [facility] Department [place] [address] from Last 3 Months or Most Recently Relevant to Health Maintenance Insurance MEDICARE [facility] [id number] [place] [address] MEDICARE MEDICARE [facility] [place] Advance Directives For more information, please contact: [phone] * Full Code (Latest Code Status on File) Date Activated Date Inactivated Comments 10/23/2023 9:44 PM 10/27/2023 6:43 PM Care Teams Accountant Cost Relationship Specialty Start Date End Date Meliton Washburn MD PCP - General Family Medicine 04/01/22
--- OUTSIDE RECORDS SUMMARY | 2025-01-31 13:42 | XMS_ITS | Continuity of Care Document ---
Author Organization [facility] Address [address] [facility] [address] [place] [address] Phone Care Team Providers Care Selling Underwriter Name Role Phone Holland OD, Christian Unavailable [...] Diagnoses Date Provider Providers Copied on Encounter [facility], [address] [place] [address] [address], [place], [place], [id number], tel:[phone] [facility] No Information Nov-0 6-200 9 Holland OD Christian. [address] [facility] , [address], [place], [address], [place]. tel:[phone] Referring Provider: Dale Stone MD [place], [address] [place] [address], [address]. tel:[phone] [facility], [address] [place] [address] [address], [place], [place], [id number], tel:[phone] [facility] No Information Oct-0 2-200 8 Holland OD Christian. [address] , [address], [place], [address], [place]. tel:[phone] Referring Provider: Dale Stone MD [place], [address] [place] [address], [address]. tel:[phone] [facility], [address] [facility] [address], [place], [place], [id number], [place] tel:[phone] [facility] No Information Mar-3 0-200 7 [employer] . [address] [facility], [address], [place], [place], [id number], [place]. tel:[phone] Consulting Provider: Melodie Tran, [address] [place] [address], [address]. tel:[phone] [facility], [address], [place], [place], [id number], [place] tel:[phone] [facility] No Information Aug-3 0-200 7 [employer] [facility] . [address] [facility], [address], [place], [place], [id number], [place]. tel:[phone] Referring Provider: Delvin Foster, [address] [place] [address], [address]. tel:[phone] lting Provider: Melodie Tran, [address] [place] [address], [address]. tel:[phone] Family History Family Member Type Diagnosis Age At Onset No Information Payers Payer name Insurance type Covered libertarian ID Authoriza tion(s) Medicare [facility] [id number] [facility] CI [id number] Social History Type Description Quantity Date Captured [...]
--- OUTSIDE RECORDS SUMMARY | 2025-01-31 13:42 | XMS_ITS | Encounter Summary ---
Author Organization [facility] Healthcare Address [address] [place] [address] Care Team Providers Care Account Resolution Analyst Name Role Phone Meliton Washburn MD Primary Care Provider [phone] [phone] Encounter Details Date Type Department Care Team (Late st Contact Info) Description 10/02/2024 Orders Only [facility] Health Information Management [address] [place] [address] Scanning, Provider Social History Tobacco Use Types Packs/Day Years Used Date Smoking Tobacco: Former Cigarettes 0.5 50.6 S tarted: 1975 Smokeless Tobacco: Never [facility] Utilities Answer Date Recorded In the past 12 months has [employer] electric, gas, oil, or water company threatened [...] often do you attend chur ch or mandaeism services? Never 10/24/2023 Do you belong to any clubs o r organizations such as caodaism groups, unions, fraternal or athletic groups, or [...] place to sleep or slept in a long term (including now)? No 10/24/2023 Personal Safety Answer Date Recorded Have you ever been in or are you currently in a harmful physical or emotional relationship or is someone making you feel afraid or unsafe? 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 Gender Identity Not on file Sexual Orientation Not on file documented as of this encounter Plan of Treatment Not on file documented as of this encounter Procedures Procedure Name Priority Date/Time Associated Diagnosis Comments SCAN - RADIOLOGY/IMAGING 10/02/2024 documented in this encounter Results * SCAN - RADIOLOGY/IMAGING (10/02/2024) Anatomical Region Laterality Modality Other us Provider Scanning Final Result documented in this encounter Visit Diagnoses Not on filedocumented in this encounter Care Teams Account Resolution Analyst Relationship Specialty Start Date End Date Meliton Washburn MD PCP - General Family Medicine 04/01/22 documented as of this encounter
--- OUTSIDE RECORDS SUMMARY | 2025-01-31 13:42 | XMS_ITS | Clinical Summary ---
Author Organization [facility] Address [address] [place] [address] Care Team Providers Care Hoof And Shoe Inspector Name Role Phone Dale Stone MD Primary Care Provider Social History Tobacco Use Types Packs/Day [...] patient's age to complete this topic Insurance [facility] MEDICARE Care Teams Hoof And Shoe Inspector Relationship Specialty Start Date End Date Dale Stone MD [address] [place] [address] PCP - General FAMILY PRACTICE 03/31/20
--- OUTSIDE RECORDS SUMMARY | 2025-01-31 13:42 | XMS_ITS | Encounter Summary ---
Author Organization [facility] Healthcare Address [address] [place] [address] Care Team Providers Care Gauge And Weigh Machine Operator Name Role Phone Meliton Washburn MD Primary Care Provider [phone] [phone] Encounter Details Date Type Department Care Team (Late st Contact Info) Description 10/01/2024 Orders Only [facility] Health Information Management [address] [place] [address] Scanning, Provider Social History Tobacco Use Types Packs/Day Years Used Date Smoking Tobacco: Former Cigarettes 0.5 50.6 S tarted: 1975 Smokeless Tobacco: Never [facility] Utilities Answer Date Recorded In the past 12 months has [employer] electric, gas, oil, or water company threatened [...] often do you attend chur ch or yazdanism services? Never 10/24/2023 Do you belong to any clubs o r organizations such as mosque groups, unions, fraternal or athletic groups, or [...] place to sleep or slept in a chcf (including now)? No 10/24/2023 Personal Safety Answer Date Recorded Have you ever been in or are you currently in a harmful physical or emotional relationship or is someone making you feel afraid or unsafe? 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 Gender Identity Not on file Sexual Orientation Not on file documented as of this encounter Plan of Treatment Not on file documented as of this encounter Procedures Procedure Name Priority Date/Time Associated Diagnosis Comments SCAN - RADIOLOGY/IMAGING 10/01/2024 documented in this encounter Results * SCAN - RADIOLOGY/IMAGING (10/01/2024) Anatomical Region Laterality Modality Other us Provider Scanning Edited Result - Final documented in this encounter Visit Diagnoses Not on filedocumented in this encounter Care Teams Gauge And Weigh Machine Operator Relationship Specialty Start Date End Date Meliton Washburn MD PCP - General Family Medicine 04/01/22 documented as of this encounter
--- OUTSIDE RECORDS SUMMARY | 2025-01-31 13:42 | XMS_ITS | Clinical Summary ---
Author Organization [facility] Olga Garcialluvia Address [address] [place] [address] Care Team Providers Care Skilled Nursing Facilities Professional Name Role Phone Meliton Washburn MD Primary Care Provider [phone]- [phone] Allergies Active Allergy Reactions Criticality Noted Date [...] mouth. Active fluticasone propionate (FLONASE) 50 mcg/spray [place], Suspension nasal inhaler Administer 2 Sprays in [...] 1 Capsule by mouth daily. 4 Active Eliquis 5 mg tablet Take 1 Tablet by mouth 2 times daily. 5 Active aspirin (ARLENE CHEWABLE) 81 mg Tablet, Chewable Take 81 mg by mouth daily. Active Active Problems Problem Noted Date Diagnosed Date Chronic anemia 03/30/2022 Encounters Date Type Department Care Team Description 01/23/2025 External Device Data STL ABSTRACTION Provider, Abstract 01/02/2025 External Device Data STL ABSTRACTION Provider, Abstract 01/02/2025 External Device Data STL ABSTRACTION Provider, Abstract 01/02/2025 External Device Data STL ABSTRACTION Provider, Abstract 01/01/2025 External Device Data STL ABSTRACTION Provider, Abstract 12/04/2024 External Device Data STL ABSTRACTION Provider, Abstract 11/13/2024 External Device Data STL ABSTRACTION Provider, Abstract 11/08/2024 External Device Data STL ABSTRACTION Provider, Abstract 11/06/2024 External Device Data STL ABSTRACTION Provider, Abstract 11/05/2024 1:00 PM CDT Office Visit [facility] Oncology and Hematology [facility] [address] [place] [address] Av Melendez MD Chronic anemia (Primary Dx) 11/05/2024 Orders Only [facility] Oncology and Hematology - Eusebio [address] [place] [address] Av Melendez MD 11/02/2024 Orders Only [facility] Oncology and Hematology - Eusebio [address] [place] [address] Av Melendez MD 11/01/2024 Orders Only [facility] Oncology and Hematology - Eusebio [address] [place] [address] Av Melendez MD Chronic anemia (Primary Dx) from Last 3 Months Social History Tobacco [...] Sign Reading Time Taken Comments Blood Pressure 128/73 11/05/2024 1:05 PM CDT Pulse 69 11/05/2024 1:05 PM CDT Temperature 36.3 C (97.4 F) 11/05/2024 1:05 PM CDT Respiratory Rate 15 11/05/2024 1:05 PM CDT Oxygen Saturation 91% 11/05/2024 1:05 PM CDT Inhaled Oxygen Concentration - - Weight 85.8 kg (189 lb 3.2 oz) 11/05/2024 1:05 P M CDT Height 182.9 cm (6') 03/30/2022 2:41 PM CDT Body Mass Index 25.66 03/30/2022 2:41 PM CDT Plan of Treatment Upcoming Encounters Date Type Department Care Team (Late st Contact Info) Description 02/08/2025 12:00 PM CDT Office Visit [facility] Oncology and Hematology [facility] [address] [facility] [address] [place] [address] Av Melendez MD [address] [facility] [address] [place] [address] Health Maintenance Due Date Last Done Comments DIABETES ANNUAL FOOT EXAM 1958 DIABETES MICROALBUMIN ANNUAL SCREEN 1958 LDL CHOLESTEROL ANNUAL 1958 DTAP/TDAP/TD VACCINES (1 - Tdap) 1959 PNEUMOCOCCAL VACCINE 50+ YEA RS (1 of 2 - PCV) 1959 Traditional Medicare (ACO) A nnual Wellness Visit 1959 ZOSTER VACCINE (1 of 2) 1990 RSV VACCINE (60+ or ) (1 - 1-dose 75+ series) 2015 DIABETES HBA1C Q 6 MONTHS 04/25/20242023, 07/28/2023, 07/22/2023, Additional history exists INFLUENZA VACCINE (#1) 2025 DIABETES ANNUAL RETINAL EXAM 11/29/2025 11/29/2024 Procedures Procedure Name Priority Date/Time Associated Diagnosis Comments CBC WITH DIFFERENTIAL Routine 11/01/2024 3:45 PM CDT BASIC METABOLIC PANEL Routine 11/01/2024 10:18 AM CDT from Last 3 Months Results * CBC WITH DIFFERENTIAL (11/01/2024 3:45 PM CDT) Blood Av Melendez MD HEMATOLOGY ORDERABLES Final Res ult * BASIC METABOLIC PANEL (11/01/2024 10:18 AM CDT) Blood Av Melendez MD CHEMISTRY ORDERABLES Final Resu lt from Last 3 Months Insurance TRADITIONAL MEDICARE PART A AND B Care Teams Skilled Nursing Facilities Professional Relationship Specialty Start Date End Date Meliton Washburn MD PCP - General Family Practice 03/30/22
[2025-01-31 13:52] LABS: Hematocrit 37.2 % (42.0-52.0); Hemoglobin 12.3 g/dL (14.0-18.0); Mean Corpuscular HGB Conc 33.1 g/dl (32-36); Mean Corpuscular Hemoglobin 29.4 pg (26-34); Mean Corpuscular Volume 88.8 fl (80-100); Platelet Count Result 270 k/mm3 (150-375); Red Blood Count 4.19 M/mm3 (4.6-6.20); White Blood Count 8.3 K/mm3 (4.5-10.0)
[2025-01-31 16:32] LABS: Iron 63 ug/dL (49-181)
[2025-01-31 16:50] LABS: Percent Iron Saturation 24 % (20-50)
[2025-01-31 17:13] LABS: Ferritin 57.60 ng/mL (11.1-264)
== END 2025-01-31 13:40 | disposition home or self-care (01) ==
LOC: ANHLAB 13:40
PROVIDERS: PCP Family Medicine; Visit Provider Internal Medicine Hematology & Oncology
DX: D64.9 Anemia, unspecified (principal)
CPT/HCPCS: 36415; 82728; 83540; 83550; 85027

== ENCOUNTER 2025-02-12 13:52 | Outpatient (NON) | payer MEDICARE, SELFPAY ==
--- OUTSIDE RECORDS SUMMARY | 2009-04-25 04:15 | XMS_ITS | Continuity of Care Document ---
Author Organization [facility] Address [address] [place] [address] Phone Care Team Providers Care Sticker Hand Name Role Phone Holland OD, Christian Unavailable Unavailable Procedures Procedure Date Eye Exam & Treatment No Script Dilated Retinal Exam W Interpretation No Eye Exam & Treatment Dilated Retinal Exam W Interpretation Oc Progressive Lens, Plastic Frames Deluxe Tint Plastic, Non-Katherine Tax - Medical Progressive Lens, Polycarb Frames Deluxe Tax - Medical Advance Directives Directive Yes / No Effective Date File Name No Information Encounters Encounter Description Practice Location Reason(s) For Visit Diagnoses Date Provider Providers Copied on Encounter [facility], [address] [place] [address] [address], [place], [place], [id number], tel:[phone] [facility] No Information Nov-0 6-200 9 Holland OD Christian. [address] , [address], [place], [address], [place]. tel:[phone] Referring Provider: Dale Stone MD [facility], [address] [place] [address], [address]. tel:[phone] [facility], [address] [place] [address] [address], [place], [place], [id number], tel:[phone] [facility] No Information Oct-0 2-200 8 Holland OD Christian. [address] , [address], [place], [address], [place]. tel:[phone] Referring Provider: Dale Stone MD [facility], [address] [place] [address], [address]. tel:[phone] [facility], [address], [place], [place], [id number], [place] tel:[phone] [facility] No Information Mar-3 0-200 7 [facility] . [address], [address], [place], [place], [id number], [place]. tel:[phone] Consulting Provider: Melodie Tran, [address] [place] [address], [address]. tel:[phone] [facility], [address], [place], [place], [id number], [place] tel:[phone] [facility] No Information Aug-3 0-200 7 [facility] . [address], [address], [place], [place], [address], [place]. tel:[phone] Referring Provider: Delvin Foster, [address] [place] [address], [address]. tel:[phone] lting Provider: Melodie Tran, [address] [place] [address], [address]. tel:[phone] Family History Family Member Type Diagnosis Age At Onset No Information Payers Payer name Insurance type Covered alliance party ID Authoriza tion(s) Medicare [facility] [id number] [facility] CI [id number] Social History Type Description Quantity Date Captured Comments Sex Male Smoking Status No Information Chief Complaint And Reason For Visit No Information Reason For Referral Reason For Referral No Information History Of Present Illness Encounter Date Complaint History Of Prese nt Illness No Information Functional Status Date Functional Assessmen t No Information Instructions Date Instruction Additional Infor mation No Information Assessments Type Assessment Date No Information Patient Care Teams Name Effective Dates (start - stop) Status Members No Information
--- OUTSIDE RECORDS SUMMARY | 2025-02-12 13:59 | XMS_ITS | Encounter Summary ---
Author Organization [facility] Healthcare Address [address] [place] [address] Care Team Providers Care Roadside Mechanic Name Role Phone Meliton Washburn MD Primary Care Provider [phone] [phone] Encounter Details Date Type Department Care Team (Late st Contact Info) Description 10/01/2024 Orders Only [facility] Health Information Management [address] [place] [address] Scanning, Provider Social History Tobacco Use Types Packs/Day Years Used Date Smoking Tobacco: Former Cigarettes 0.5 50.6 S tarted: 1975 Smokeless Tobacco: Never [facility] Utilities Answer Date Recorded In the past 12 months has [employer] electric, gas, oil, or water company threatened [...] any clubs o r organizations such as congregation groups, unions, fraternal or athletic groups, or [...] on file 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
--- OUTSIDE RECORDS SUMMARY | 2025-02-12 13:59 | XMS_ITS | Clinical Summary ---
Author Organization [facility] Olga Garcialluvia Address [address] [place] [address] Care Team Providers Care Monument Mason Name Role Phone Meliton Washburn MD Primary Care Provider [phone]- [phone] Allergies Active Allergy Reactions Criticality Noted Date [...] mouth. Active fluticasone propionate (FLONASE) 50 mcg/spray [place], Suspension nasal inhaler Administer 2 Sprays in [...] Take 81 mg by mouth daily. Active cyanocobalamin 1,000 mcg Tablet Take 1,000 mcg by mouth daily. Active ascorbic acid (VITAMIN C) 500 mg Tablet, Chewable daily. Active polyethylene glycol (MIRALAX) 17 gram Powder in Packet Take 17 Grams by mouth daily. Active multivitamin (DAILY-TK) tablet Take 1 Tablet by mouth daily. Active Active Problems Problem Noted Date Diagnosed Date Chronic anemia 03/30/2022 Encounters Date Type Department Care Team Description 02/08/2025 12:00 PM CDT Office Visit [facility] [address] [place] [address] Av Melendez MD Chronic anemia (Primary Dx) 02/05/2025 External Device Data STL ABSTRACTION Provider, Abstract 02/05/2025 External Device Data STL ABSTRACTION Provider, Abstract 02/04/2025 Orders Only [facility] [address] [place] [address] Av Melendez MD 01/23/2025 External Device Data STL ABSTRACTION Provider, [...] Sign Reading Time Taken Comments Blood Pressure 138/80 02/08/2025 11:52 AM CDT Pulse 64 02/08/2025 11:49 AM CDT Temperature 36.1 C (96.9 F) 02/08/2025 11:49 AM CDT Respiratory Rate 15 02/08/2025 11:4 9 AM CDT Oxygen Saturation 96% 02/08/2025 11: 49 AM CDT Inhaled Oxygen Concentration - - Weight 88.4 kg (194 lb 12.8 oz) 025 11:49 AM CDT Height 182.9 cm (6') 03/30/2022 2:41 PM CDT Body Mass Index 26.42 03/30/2022 2:41 PM CDT Plan of Treatment Upcoming Encounters Date Type Department Care Team (Late st Contact Info) Description 08/16/2025 10:00 AM MACHINE STUFFER Office Visit [facility] [place] [address] [facility] [address] [place] [address] Av Melendez MD [address] [facility] [address] [place] [address] Health Maintenance Due Date Last Done Comments DIABETES ANNUAL FOOT EXAM 1958 DIABETES MICROALBUMIN ANNUAL SCREEN 1958 LDL CHOLESTEROL ANNUAL 1958 Traditional Medicare (ACO) A nnual Wellness Visit 1959 RSV VACCINE (60+ or ) (1 - 1-dose 75+ series) 2015 DTAP/TDAP/TD VACCINES (1 - Tdap) 07/22/2015 07/21/19 16, 02/17/2004 DIABETES HBA1C Q 6 MONTHS 04/25/20242023, 07/28/2023, 07/22/2023, Additional history exists INFLUENZA VACCINE (#1) 2025 , 04/08/2023, 04/08/2023, Additional history exists DIABETES ANNUAL RETINAL EXAM 11/29/2025 11/29/2024 PNEUMOCOCCAL VACCINE 50+ YEARS Completed 02/03/2015 , 04/20/2005 ZOSTER VACCINE Completed 05/20/2022, 12/19, 09/01/2011 Procedures Procedure Name Priority Date/Time Associated Diagnosis Comments IRON, TIBC, AND PERCENT SATURATION Routine 01/31/2025 12:34 PM CDT CBC WITH AUTODIFFERENTIAL Routine 2024 12:20 PM CDT from Last 3 Months Results * IRON, TIBC, AND PERCENT SATURATION (01/31/2025 12:34 PM CDT) Blood Av Melendez MD CHEMISTRY ORDERABLES Final Resu lt * CBC WITH AUTODIFFERENTIAL (01/31/2025 12:20 PM CDT) Blood Av Melendez MD HEMATOLOGY ORDERABLES Final Res ult from Last 3 Mon[address] Insurance [facility] MEDICARE PART A AND B Care Teams Monument Mason Relationship Specialty Start Date End Date Meliton Washburn MD PCP - General Family Practice 03/30/22
--- OUTSIDE RECORDS SUMMARY | 2025-02-12 13:59 | XMS_ITS | Clinical Summary ---
Author Organization [facility] [address] Address [address] [place] [address] Care Team Providers Care Sheet Pile Hammer Operator Name Role Phone Meliton Washburn MD Primary Care Provider +1 [phone] Allergies Active Allergy Reactions Criticality Noted Date [...] Description 01/14/2025 11:00 AM CDT Office Visit [facility] Medical [facility] Cardiology [address] [place] [address] [place] [address] Kay Husain NP TIA (transient ischemic attack) (Primary Dx); History of DVT of lower extremity; Encounter for anticoagulation discussion and counseling 01/14/2025 10:30 AM CDT Ancillary Procedure [facility] Cardiology [address] [place] [address] [place] [phone] TIA (transient ischemic attack) 12/27/2024 Telephone [facility] Cardiology [address] [place] [address] [place] [phone] Karen Benjamin MD from Last 3 [...] Tobacco: Never Tobacco Cessation:Counseling Given: Not Answered [facility] Utilities Answer Date Recorded In the past 12 months has e [employer], gas, oil, or water [employer] threatened to shut off services in your [...] week 10/24/2023 How often do you attend [facility] ch or anglican services? 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 Testing performed by: [address] [address] Blood 10/27/2023 8:55 AM CDT 10/27/2023 9:00 AM CDT Ingrid Cheek MD LAB BLOOD ORDERABLES Final Resul t Performing Organization Address [facility] de Phone Number [address] [address] * (ABNORMAL) Hemoglobin A1c (10/24/2023 7:46 AM CDT) Hgb A1C 6.9(H) 4.0 - 5.6 % Comment:Testing performed by : [address] [address] Estimated Average Glucose 151 mg/dL [facility] Comment: The ADA recommends reporting an estimated Average Glucose (eAG) with all Hemoglobin A1c results using the equation derived from a study of 507 normal and diabetic adults. Minority populations were underrepresented and children were not included. (Diabetes Care 31:0680-6449, 2008). The eAG is not equivalent to a fasting glucose. Testing performed by: [address] [address] Blood 10/24/2023 7:46 AM CDT 10/24/2023 9:33 AM CDT us Jaren Goyal MD LAB BLOOD ORDERABLES Final Result Performing Organization Address [facility] Co de Phone Number [facility] [address] [facility] [place] [address] * Lipid panel (10/24/2023 7:46 AM CDT) [...] revised on 2018. Testing performed by: [address] [address] Triglycerides 79 <=149 mg/dL [facility] Comment: Interpretive [...] revised on 2018. Testing performed by: [address] [address] HDL 45 >=40 mg/dL [facility] Comment: Interpretive [...] revised on 2018. Testing performed by: [address] [address] LDL, calculated 40 <=129 mg/dL [facility] Comment: [...] revised on 2018. Testing performed by: [address] [address] Non-HDL Cholesterol 56 mg/dL [facility] Comment: Interpretive [...] last revised on 2018. Testing performed by: [facility], [address] [place] [address]., [address] Chol/HDL ratio 2 [facility] Comment:Testing performed by : [address] [address] Blood 10/24/2023 7:46 AM CDT 10/24/2023 9:33 AM CDT us Jaren Goyal MD LAB BLOOD ORDERABLES Final Result [facility] [address] [facility] Department [place] [address] from Last 3 Months or Most Recently Relevant to Health Maintenance Insurance MEDICARE [facility] [id number] [place] [address] MEDICARE MEDICARE [facility] [place] Advance Directives For more information, please contact: [phone] * Full Code (Latest Code Status on File) Date Activated Date Inactivated Comments 10/23/2023 9:44 PM 10/27/2023 6:43 PM Care Teams Sheet Pile Hammer Operator Relationship Specialty Start Date End Date Meliton Washburn MD PCP - General Family Medicine 04/01/22
--- OUTSIDE RECORDS SUMMARY | 2025-02-12 13:59 | XMS_ITS | Encounter Summary ---
Author Organization [facility] Healthcare Address [address] [place] [address] Care Team Providers Care Senior Ios Software Engineer Name Role Phone Meliton Washburn MD Primary Care Provider [phone] [phone] Encounter Details Date Type Department Care Team (Late st Contact Info) Description 10/02/2024 Orders Only [facility] Health Information Management [address] [place] [address] Scanning, Provider Social History Tobacco Use Types Packs/Day Years Used Date Smoking Tobacco: Former Cigarettes 0.5 50.6 S tarted: 1975 Smokeless Tobacco: Never [facility] Utilities Answer Date Recorded In the past 12 months has [employer], gas, oil, or water company threatened [...] often do you attend chur ch or presybeterian services? 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
== END 2025-02-12 13:53 | disposition home or self-care (01) ==
LOC: ANHGOSHLAB 13:54
PROVIDERS: PCP Nurse Practitioner Family; Visit Provider Nurse Practitioner Family
DX: R31.9 Hematuria, unspecified (principal)
CPT/HCPCS: 87086

== ENCOUNTER 2025-03-15 12:34 | Outpatient (RCR) | payer MEDICARE, SELFPAY ==
--- OUTSIDE RECORDS SUMMARY | 2025-03-15 12:37 | XMS_ITS | Clinical Summary ---
Author Organization [facility] [address] Address [address] [place] [address] Care Team Providers Care Rn Gastroenterology Name Role Phone Meliton Washburn MD Primary Care Provider [phone] [phone] Allergies Active Allergy Reactions Criticality Noted Date [...] 81 mg by mouth daily 5 Active sodium chloride 1 gram tablet Take 1 tablet (1 g total) by mouth 3 (three) times a day 270 tablet 3 5 01/29/20 26 Active Eliquis 5 mg tablet Take 1 tablet (5 mg total) by mouth 2 (two) times a day 180 tablet 1 5 02/16/20 25 Discontinu ed(Therapy completed) Active Problems Problem Noted Date Diagnosed Date Hyponatremia 10/23/2023 Acute cystitis without hematuria 10/23/2023 Generalized weakness 10/23/2023 Hypertension associated with diabetes Hyperlipidemia associated with type 2 diabetes m ellitus Aneurysm of ascending aorta Nonrheumatic aortic valve stenosis Resolved Problems Problem Noted Date Diagnosed Date Resolved Date Other chest pain 10/23/2023 Encounters Date Type Department Care Team Description 02/15/[address] [address] Kay Husain NP 02/15/2025 Results Follow-Up [place] [address] [place] [phone] Kay Husain NP [facility] Mobile Cardiac Telemetry Event Monitor 01/14/2025 11:00 AM CDT Office Visit [facility] Cardiology [address] [place] [phone] Kay Husain NP TIA (transient ischemic attack) (Primary Dx); History of DVT of lower extremity; Encounter for anticoagulation discussion and counseling 01/14/2025 10:30 AM CDT Ancillary Procedure [facility] Cardiology [address] [place] [address] [place] [phone] TIA (transient ischemic attack) 12/27/2024 Telephone [place] [address] [address] [place] [phone] Karen Benjamin MD from Last 3 Months [...] Used Date Smoking Tobacco: Former Cigarettes 0.5 50.7 S tarted: 1974 Smokeless Tobacco: Never Tobacco Cessation:Counseling Given: Not Answered [facility] Utilities Answer Date Recorded In the [...] any clubs o r organizations such as mu-ism groups, unions, fraternal or athletic groups, or [...] place to sleep or slept in a jail (including now)? No 10/24/2023 Personal Safety Answer Date Recorded Have you ever been in or are you currently in a harmful physical or emotional relationship or is someone making you feel afraid or unsafe? 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 Gender Identity Not on file Sexual Orientation Not on file Obstetrics History Last Filed Vital Signs Vital Sign Reading Time Taken Comments Blood Pressure 124/56 01/14/2025 11:00 AM CDT Pulse 66 01/14/2025 11:00 AM CDT Temperature 37 C (98.6 F) 08/22/2024 2:23 PM VMWARE ENGINEER Respiratory Rate 18 10/27/2023 12:40 PM CDT [...] of 2) 1990 Well Visit 65+ 2005 Hemoglobin A1C 04/25/2024 10/24/2023 Lipid Panel 10/23/2024 10/24/2023 Fall Risk Assessment 10/26/2024 10/27/2023 eGFR 10/26/2024 10/27/2023, 0501/2024, 10/26/2023, Additional history exists Covid-19 Vaccine (2024-2 6 season) 2025 05/28/2021, 09/05/2020, 08/15/2020 Influenza Vaccine (#1) 2025 , 03/28/2020, 03/29/2019, Additional history exists Procedures Procedure Name Priority Date/Time Associated Diagnosis Comments MCT - MOBILE CARDIAC TELEMETRY EVENT MONITOR Routine 01/14/2025 11:43 AM CDT TIA (transient ischemic attack) EGFR Routine 10/27/2023 8:55 AM CDT HEMOGLOBIN A1C Routine 10/24/2023 7:46 AM CDT LIPID PANEL Routine 10/24/2023 7:46 AM CDT from Last 3 Months or Most Recently Relevant to Health Maintenance Results * MCT Mobile Cardiac Telemetry Event Monitor (01/14/2025 11:43 AM CDT) Anatomical Region Laterality Modality Electrocardiogra phy Narrative 02/14/2025 5:43 PM CDT AMBULATORY STORAGE SOLUTIONS ARCHITECT REPORT Patient Name: Meliton Delacruz Date of : 1940 Requesting Physician: Kay Husain/Dr. Benjamin Date of interpretation: 02/14/25 Type of monitor : 30 day bus monitor Date of the study/Enrollment period: 01/14/2025 through 02/12/2025 Indication: Transient cerebral ischemic attack Quality of the study: Good Interpretation: Total of 28 days 12 hours and 28 minutes of diagnostic time Underlying sinus rhythm heart rate variability between 53 and 114 beats per minute with an average heart rate 72 beats per minute. Low frequency ventricular ectopy totaling 3188 beats which is less than 1% ectopic burden Frequent supraventricular ectopy totaling 239,946 beats which 8% ectopic burden. No manually triggered events No atrial fibrillation, complex arrhythmia, heart block or pauses Conclusions: Underlying sinus rhythm with average heart rate of 72 beats per minute Frequent supraventricular ectopy with 8% ectopic burden Low-frequency supraventricular ectopy with less than 1% ectopic burden No atrial fibrillation, complex arrhythmia, heart block or pauses No patient triggered events Voice recognition software was used to complete this document, therefore, mover helper variances may occur. Jamshid Carlson MD, FAC 02/14/25 Procedure Note Jamshid Carlson MD - 02/14/2025 AMBULATORY STORAGE SOLUTIONS ARCHITECT REPORT Patient Name: Meliton Delacruz Date of : 1940 Requesting Physician: Kay Husain/Dr. Benjamin Date of interpretation: 02/14/25 Type of monitor : 30 day bus monitor Date of the study/Enrollment period: 01/14/2025 through 02/12/2025 Indication: Transient cerebral ischemic attack Quality of the study: Good Interpretation: Total of 28 days 12 hours and 28 minutes of diagnostictime Underlying sinus rhythm heart rate variability between 53 and 114 beatsper minute with an average heart rate 72 beats per minute. Low frequency ventricular ectopy totaling 3188 beats which is less than 1%ectopic burden Frequent supraventricular ectopy totaling 239,946 beats which 8% ectopicburden. No manually triggered events No atrial fibrillation, complex arrhythmia, heart block or pauses Conclusions: Underlying sinus rhythm with average heart rate of 72 beats per minute Frequent supraventricular ectopy with 8% ectopic burden Low-frequency supraventricular ectopy with less than 1% ectopic burden No atrial fibrillation, complex arrhythmia, heart block or pauses No patient triggered events Voice recognition software was used to complete this document, therefore,mover helper variances may occur. Jamshid Carlson MD, FACC 02/14/25 us Kay Husain NP [facility] Final Result * eGFR (10/27/2023 8:55 AM CDT) eGFR [...] was last reviewed 2021. Testing performed by: [address] [address] Blood 10/27/2023 8:55 AM CDT 10/27/2023 9:00 AM CDT us Ingrid Cheek MD LAB BLOOD ORDERABLES Final Resul t [facility] [address] [facility] [place] [address] * (ABNORMAL) Hemoglobin A1c (10/24/2023 7:46 AM CDT) Hgb A1C 6.9(H) 4.0 - 5.6 % Comment:Testing performed by : [address] [address] Estimated Average Glucose 151 mg/dL [facility] Comment: The ADA recommends reporting an estimated Average Glucose (eAG) with all Hemoglobin A1c results using the equation derived from a study of 507 normal and diabetic adults. Minority populations were underrepresented and children were not included. (Diabetes Care 31:9112-7386, 2008). The eAG is not equivalent to a fasting glucose. Testing performed by: [address] [address] Blood 10/24/2023 7:46 AM CDT 10/24/2023 9:33 AM CDT us Jaren Goyal MD LAB BLOOD ORDERABLES Final Result [facility] [address] [facility] [place] [address] * Lipid panel (10/24/2023 7:46 [...] last revised on 2018. Testing performed by: [address] [address] Triglycerides 79 <=149 mg/dL [facility] Comment: Interpretive [...] last revised on 2018. Testing performed by: [address] [address] HDL 45 >=40 mg/dL [facility] Comment: Interpretive [...] last revised on 2018. Testing performed by: [address] [address] LDL, calculated 40 <=129 mg/dL [facility] Comment: [...] last revised on 2018. Testing performed by: [address] [address] Non-HDL Cholesterol 56 mg/dL [facility] Comment: Interpretive [...] last revised on 2018. Testing performed by: [address], [place]., [address] Chol/HDL ratio 2 [facility] Comment:Testing performed by : [facility], [address] [place] [address]., [address] Blood 10/24/2023 7:46 AM CDT 10/24/2023 9:33 AM CDT us Jaren Goyal MD LAB BLOOD ORDERABLES Final Result [facility] [address] [facility] [place] [address] from Last 3 Months or Most Recently Relevant to Health Maintenance Insurance MEDICARE [facility] MEDICARE MEDICARE [facility] Advance Directives For more information, please contact: [phone] * Full Code (Latest Code Status on File) Date Activated Date Inactivated Comments 10/23/2023 9:44 PM 10/27/2023 6:43 PM Care Teams Rn Gastroenterology Relationship Specialty Start Date End Date Meliton Washburn MD PCP - General Family Medicine 04/01/22
--- OUTSIDE RECORDS SUMMARY | 2025-03-15 12:37 | XMS_ITS | Encounter Summary ---
Author Organization [facility] Healthcare Address [address] [place] [address] Care Team Providers Care Slot Floorman Name Role Phone Meliton Washburn MD Primary Care Provider [phone] [phone] Encounter Details Date Type Department Care Team (Late st Contact Info) Description 10/02/2024 Orders Only [facility] Health Information Management [address] [place] [address] Scanning, Provider Social History Tobacco Use Types Packs/Day Years Used Date Smoking Tobacco: Former Cigarettes 0.5 50.7 S tarted: 1975 Smokeless Tobacco: Never [facility] Utilities Answer Date Recorded In the past 12 months has [employer] electric, gas, oil, or water company threatened [...] any clubs o r organizations such as scientologist groups, unions, fraternal or athletic groups, or [...] place to sleep or slept in a group home (including now)? No 10/24/2023 Personal Safety Answer Date Recorded Have you ever been in or are you currently in a harmful physical or emotional relationship or is someone making you feel afraid or unsafe? 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
--- OUTSIDE RECORDS SUMMARY | 2025-03-15 12:37 | XMS_ITS | Encounter Summary ---
Author Organization [facility] Healthcare Address [address] [place] [address] Care Team Providers Care Records Technician Name Role Phone Meliton Washburn MD Primary Care Provider [phone] [phone] Encounter Details Date Type Department Care Team (Late st Contact Info) Description 10/01/[address] [facility] Health Information Management [address] [place] [address] Scanning, Provider Social History Tobacco Use Types Packs/Day Years Used Date Smoking Tobacco: Former Cigarettes 0.5 50.7 S tarted: 1975 Smokeless Tobacco: Never [facility] Utilities Answer Date Recorded In the past 12 months has [employer] electric, gas, oil, or water company threatened [...] often do you attend chur ch or mosque services? Never 10/24/2023 Do you belong to any clubs o r organizations such as christianity groups, unions, fraternal or athletic groups, or [...] on file Legal Sex Male 3:39 PM PROVIDER RELATIONS REPRESENTATIVE Gender Identity Not on file Sexual [...] on filedocumented in this encounter Care Teams Records Technician Relationship Specialty Start Date End Date Meliton Washburn MD PCP - General Family Medicine 04/01/22 documented as of this encounter
--- OUTSIDE RECORDS SUMMARY | 2025-03-15 12:37 | XMS_ITS | Encounter Summary ---
Author Organization [facility] Healthcare Address [address] [place] [address] Care Team Providers Care Joint Sealer Name Role Phone Tapan Stone MD Primary Care Provider [phone] Meliton Washburn MD Primary Care Provider [phone] Encounter Details Date Type Department Care Team (Late st Contact Info) Description 02/11/2022 Orders Only [facility] Health Information Management [address] [place] [address] Scanning, Provider Social History Tobacco Use Types Packs/Day Years Used Date Smoking Tobacco: Former Cigarettes 0.5 50.7 S tarted: 1975 Smokeless Tobacco: Never Sex and Gender Information Value Date Recorded Sex Assigned at Not on file 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 Gender Identity Not on file Sexual Orientation Not on file documented as of this encounter Plan of Treatment Not on file documented as of this encounter Procedures Procedure Name Priority Date/Time Associated Diagnosis Comments SCAN - RADIOLOGY/IMAGING 02/11/2022 documented in this encounter Results * SCAN - RADIOLOGY/IMAGING (02/11/2022) Anatomical Region Laterality Modality Other us Provider Scanning Final Result documented in this encounter Visit Diagnoses Not on filedocumented in this encounter Care Teams Joint Sealer Relationship Specialty Start Date End Date Tapan Stone MD [address] [address] PCP - General Family Medicine 08/05/21 03/31/22 Meliton Washburn MD [address] [place] [address] PCP - General Family Medicine 04/01/22 documented as of this encounter
--- OUTSIDE RECORDS SUMMARY | 2025-03-15 12:37 | XMS_ITS | Clinical Summary ---
Author Organization [facility] Address [address] [place] [address] Care Team Providers Care Adding Machine Servicer Name Role Phone Dale Stone MD Primary Care Provider [phone] Social History Tobacco Use Types Packs/Day Years [...] COVID-19 Vaccine ( - 2023-2 5 season) 2025 Meningococcal B Vaccine Aged Out No l onger eligible based on patient's age to complete this topic Meningococcal Vaccine Aged Out No werner terry eligible based on patient's age to complete this topic RSV Immunizations Under 20 Months Aged Out No longer eligible based on patient's age to complete this topic Insurance [facility] MEDICARE Care Teams Adding Machine Servicer Relationship Specialty Start Date End Date Dale Stone MD [address] [place] [address] PCP - General FAMILY PRACTICE 03/31/20
--- OUTSIDE RECORDS SUMMARY | 2025-03-15 12:37 | XMS_ITS | Encounter Summary ---
Author Organization [facility] Healthcare Address [address] [place] [address] Care Team Providers Care Telephone Clerks Supervisor Name Role Phone Meliton Washburn MD Primary Care Provider [phone] Encounter Details Date Type Department Care Team (Late st Contact Info) Description 02/15/2025 Results Follow-Up [facility] Cardiology [address] [place] [address] Kay Husain NP [address] [place] [address] [facility] Mobile Cardiac Telemetry Event Monitor Social History Tobacco Use Types Packs/Day Years Used Date Smoking Tobacco: Former Cigarettes 0.5 50.7 S tarted: 1975 Smokeless Tobacco: Never [facility] Utilities Answer Date Recorded In the past 12 months has Organizer, [employer], oil, or water [employer] threatened to shut off services in your [...] How often do you attend chur or hoahaoism services? 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
--- OUTSIDE RECORDS SUMMARY | 2025-03-15 12:37 | XMS_ITS | Clinical Summary ---
Author Organization [facility] Olga Gleason Address [address] [place] [address] Care Team Providers Care Timber Treatment Plant Operator Name Role Phone Meliton Washburn MD Primary Care Provider [phone] Allergies Active Allergy Reactions Criticality Noted Date [...] mouth. Active fluticasone propionate (FLONASE) 50 mcg/spray [place], Suspension nasal inhaler Administer 2 Sprays in [...] Encounters Date Type Department Care Team Description 03/05/2025 External Device Data STL ABSTRACTION Provider, Abstract 03/05/2025 External Device Data STL ABSTRACTION Provider, Abstract 02/08/2025 12:00 PM CDT Office Visit [facility] Oncology and Hematology [facility] [address] [place] [address] Av Melendez MD Chronic anemia (Primary Dx) 02/05/2025 External Device Data STL ABSTRACTION Provider, Abstract 02/05/2025 External Device Data STL ABSTRACTION Provider, Abstract 02/04/2025 Orders Only [facility] Oncology and Hematology E[facility] [address] [place] [address] Av Melendez MD 01/23/2025 External Device Data [...] st Contact Info) Description 08/16/2025 10:00 AM MANAGER HRIS Office Visit [facility] Oncology and Hematology - [place] [address] [facility] [address] [place] [address] Av Melendez MD [address] [facility] [address] [place] [address] Health Maintenance Due Date Last Done Comments DIABETES ANNUAL FOOT EXAM 1958 DIABETES MICROALBUMIN ANNUAL SCREEN 1958 LDL CHOLESTEROL ANNUAL 1958 RSV VACCINE (60+ or ) (1 - [...] PERCENT SATURATION (01/31/2025 12:34 PM CDT) Blood us Av Melendez MD CHEMISTRY ORDERABLES Final Resu lt * CBC WITH AUTODIFFERENTIAL (01/31/2025 12:20 PM CDT) Blood us Av Melendez MD HEMATOLOGY ORDERABLES Final Res ult from Last 3 Months Insurance TRADITIONAL MEDICARE PART A AND B Care Teams Timber Treatment Plant Operator Relationship Specialty Start Date End Date Meliton Washburn MD PCP - General Family Practice 03/30/22
[2025-03-15 18:27] LABS: Anion Gap 7 mmol/L (4-12); Blood Urea Nitrogen 14 mg/dL (9-20); Calcium 8.2 mg/dL (8.4-10.2); Carbon Dioxide 28 mmol/L (22-30); Chloride 99 mmol/L (98-107); Estimated Glomerular Filt Rate > 60; Glucose 121 mg/dL (65-110); Potassium 4.1 mmol/L (3.4-5.0); Sodium 134 mmol/L (137-145)
== END 2025-06-13 23:59 | disposition home or self-care (01) ==
LOC: ANHGOSHLAB 12:34
PROVIDERS: PCP Nurse Practitioner Family; Visit Provider Internal Medicine Nephrology
DX: E87.1 Hypo-osmolality and hyponatremia (principal)
CPT/HCPCS: 36415; 80048

== ENCOUNTER 2025-03-19 15:44 | Emergency (ER) | payer MEDICARE, SELFPAY ==
[2025-03-19 15:59] VITALS: BP 137/73; PULSE 83; RESP 16; TEMP 36.2; O2SAT 99
--- NOTE | 2025-03-19 16:08 | ED.URI ---
HPI - URI/Sore Throat General Chief Complaint: Upper Respiratory Infection Stated Complaint: sore throat Time Seen by Provider: 03/19/25 16:07 Source: patient and RN notes reviewed Mode of arrival: ambulatory Limitations: no limitations History of Present Illness HPI Narrative: 84-year-old male presents with concern for about 1 week history of postnasal drip, runny nose mild sweats. He denies fever, body aches, chills, sweats. He denies cough. He takes antihistamine and uses Flonase daily, he also uses Neti pot. MD elicited complaint: sore throat and rhinorrhea Related Data Home Medications ?Medication ?Instructions ?Recorded ?Confirmed ?Last Taken ?Type cetirizine 10 mg tablet (Zyrtec) 10 mg PO DAILY 07/04/19 01/16/25 04/01/20 History multivitamin (Multiple Vitamins 1 tablet PO DAILY 02/29/20 01/16/25 04/01/20 History tablet) finasteride 5 mg tablet 5 mg PO DAILY 02/26/22 01/16/25 Unknown History mecobalamin (vitamin B12) 1,000 1,000 mcg PO HS 05/18/22 01/16/25 Unknown History mcg chewable tablet ascorbate calcium (vitamin C) 500 500 mg PO DAILY 04/15/23 01/16/25 Unknown History mg tablet ferrous sulfate 325 mg (65 mg 325 mg PO DAILY 11/03/23 01/16/25 Unknown History iron) tablet polyethylene glycol 3350 17 17 g PO DAILY 11/03/23 01/16/25 Unknown History gram/dose oral powder (Miralax) sodium chloride 1,000 mg soluble 1,000 mg PO TID 10/01/24 01/16/25 Unknown History tablet Allergies Allergy/AdvReac Type Severity Reaction Status Date / Time adhesive tape Allergy Mild Rash Verified 03/19/25 16:05 neomycin Allergy Mild Rash Verified 03/19/25 16:05 hydrochlorothiazide AdvReac Severe hyponatremi Verified 03/19/25 16:05 a Sulfa (Sulfonamide AdvReac Intermediate Nausea Verified 03/19/25 16:05 Antibiotics) Review of Systems Review of Systems: CONSTITUTIONAL: Denies malaise, chills, sweats, or fever. EYES: Denies visual changes, redness, or discharge. ENT: Reports rhinorrhea, sore throat. Denies congestion, sinus pain, otalgia CARDIOVASCULAR: Denies chest pain, palpitations, or edema. RESPIRATORY: Denies cough. Denies dyspnea. GASTROINTESTINAL: Denies abdominal pain, nausea, vomiting, diarrhea SKIN: Denies rash or itching. MUSCULOSKELETAL: Denies myalgia. NEUROLOGIC: Denies headache. 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 Code status: Full code. Smoking packs per day: 1 Smoking cigarettes per day: 20.0 Years smoked: 14 Smoking pack-years: 14.00 Smoking status: Former smoker Tobacco type: cigarettes Alcohol intake: never Alcohol use details: FEW DRINKS/YEAR Substance use: never Substance use type: does not use Do You Feel Safe in your Home?: Yes Lack of Transportation: No Lack of Food: Never True Current Housing: I Have Housing Concerned About Future Housing: No Difficulty Paying Gas/Electric Bills: No Difficulty Paying for Meds: No Currently Unemployed: No Education: Trade/Vocational Certificate Difficulty w/ Childcare or Family Care: No Living arrangements: with family Occupation/Education: retired Spiritual care concerns: No Comments At time of signature, agree with nursing past medical, surgical, social and family history. There is no relevant family history pertinent to the presenting complaint Exam Narrative: GENERAL: Well-appearing, well-nourished, and in no acute distress. HEAD: Normocephalic EYES: PERRLA, conjunctivae clear ENT: Nares clear, clear discharge. Mucous membranes moist. TM pearly salvador with dull light reflex bilaterally; no tragal tenderness. Oropharynx not erythematous without lesions. Tonsils not enlarged and without exudate, no drooling, no hoarseness, no trismus, uvula midline. NECK: Supple. No lymphadenopathy CHEST: Clear to auscultation, breath sounds equal. No wheezing, rhonchi, rales, or stridor. No respiratory distress, speaks in full sentences. HEART: Regular rate and rhythm. No murmur heard. SKIN: Warm, dry, no rash. NEURO: Alert and oriented x3. PSYCH: Normal mood and affect Course Course Emergency Course: Patient is aware of diagnosis, understands and agrees to treatment plan. Anticipatory guidance given. Patient agrees to follow-up as directed and is aware of reasons to seek care at the emergency department. Portions of this record may have been created with voice recognition software Level of Care: Express Care Visit Vital Signs Vital signs: Vital Signs Temperature 97.2 F L 03/19/25 15:59 Pulse Rate 83 03/19/25 15:59 Respiratory Rate 16 03/19/25 15:59 Blood Pressure 137/73 03/19/25 15:59 Pulse Oximetry 99 03/19/25 15:59 Temperature 97.2 F L 03/19/25 15:59 Pulse Rate 83 03/19/25 15:59 Respiratory Rate 16 03/19/25 15:59 Blood Pressure 137/73 03/19/25 15:59 Pulse Oximetry 99 03/19/25 15:59 Reviewed. MDM - URI/Sore Throat MDM Narrative Medical decision making narrative: Differential diagnosis considered: Cummings virus, strep pharyngitis, allergic rhinitis, upper respiratory tract infection, sinusitis, rhinosinusitis, nasopharyngitis. viral pharyngitis, otitis media, otitis externa, pneumonia, bronchitis, viral cough syndrome, viral syndrome, and influenza. Exam findings show no acute concerns or changes; patient is non-toxic appearing and is in no distress. Patient is appropriate for outpatient treatment and follow-up. Lab Data Attestation: I reviewed the patient's lab results. Critical Care Time Critical Care Time Critical Care Time: No Discharge Plan Discharge Clinical Impression: Upper respiratory infection Patient Disposition: Home Condition: Stable Instructions: Upper Respiratory Infection (ED) Additional Instructions: Viral illness may last between 7-21 days; antibiotics do not cure viral illness and are NOT recommended at this time. Recommend antihistamine such as Benadryl at night time and Zyrtec during the day Use nose spray as prescribed, you can use it in addition to Flonase Also, recommend symptomatic treatment includes: rest, fluids, and increase humidity of the air at home. Recommend Acetaminophen as directed on the bottle to reduce fever, pain, headache. Avoid smoking/second-hand smoke. Please schedule a follow-up visit with your personal physician for further evaluation and treatment within 3-5days. If your symptoms persist, change or worsen significantly before you can contact your personal physician then please, without delay, go to the emergency department for further evaluation. Patient Language: Micronesian Prescriptions: New ipratropium bromide 21 mcg (0.03 %) spray,non-aerosol 2 spray NASAL TID PRN (Reason: nasal drainage) Qty: 30 0RF Rx Instructions: administer into each nostril No Action cetirizine [Zyrtec] 10 mg tablet 10 mg PO DAILY mecobalamin (vitamin B12) 1,000 mcg tablet,chewable 1,000 mcg PO HS ferrous sulfate 325 mg (65 mg iron) tablet 325 mg PO DAILY polyethylene glycol 3350 [Miralax] 17 gram/dose powder 17 g PO DAILY finasteride 5 mg tablet 5 mg PO DAILY sodium chloride 1,000 mg tablet,soluble 1,000 mg PO TID aspirin [Children's Aspirin] 81 mg Tablet,Chewable 81 mg PO DAILY@0800 Qty: 30 0RF multivitamin [Multiple Vitamins] Tablet 1 tablet PO DAILY ascorbate calcium (vitamin C) 500 mg Tablet 500 mg PO DAILY omeprazole 20 mg capsule,delayed release(DR/EC) 20 mg PO DAILY Qty: 90 1RF metformin 500 mg tablet 500 mg PO BID Qty: 180 1RF amlodipine-benazepril 10-20 mg capsule 1 cap PO DAILY Qty: 90 1RF atorvastatin 10 mg tablet 10 mg PO HS Qty: 90 1RF fluticasone propionate [Flonase Allergy Relief] 50 mcg/actuation spray,suspension 1 spray intranasal BID Qty: 48 1RF Rx Instructions: administer into each nostril Follow-up/Referrals: Meliton Washburn MD [Primary Care Provider, [facility]] Time of Disposition: 16:16
[2025-03-19 16:11] LABS: EDSTREPNEGPOS1 Negative (Negative)
== END 2025-03-19 16:22 | disposition home or self-care (01) ==
PROVIDERS: Emergency Provider Nurse Practitioner; PCP Family Medicine
DX: J06.9 Acute upper respiratory infection, unspecified (principal); I10 Essential (primary) hypertension; E11.43 Type 2 diabetes mellitus with diabetic autonomic (poly)neuropathy; Z79.84 Long term (current) use of oral hypoglycemic drugs; E78.2 Mixed hyperlipidemia; I77.9 Disorder of arteries and arterioles, unspecified; D64.9 Anemia, unspecified; Z86.73 Personal history of transient ischemic attack (TIA), and cerebral infarction without residual deficits; Z87.891 Personal history of nicotine dependence
CPT/HCPCS: 87081; 87880; 99213; G0463